=== PATIENT | female | born 1955 | race Caucasian/White ===

== ENCOUNTER 2021-12-21 11:45 | Observation (INO) | payer MEDICARE, SELFPAY ==
[2021-12-21] VITALS (9 sets, daily range): BP systolic 125–153; BP diastolic 61–106; PULSE 60–79; RESP 10–20; TEMP 35.9–38.9; O2SAT 97–100; BMI 30.9; BMI 28.5
--- NOTE | 2021-12-21 13:36 | RAD_ITS ---
STUDY: X-RAY CHEST REASON FOR EXAM: Female, 66 years old. Cough. Fever and body chills History of UTI. TECHNIQUE: PA and lateral views of the chest. COMPARISON: None. FINDINGS: Hyperinflation. Mild increased linear markings at the lung bases slightly more prominent at the right lung base. This may represent a combination of the scarring and possible atelectasis. There is no demonstrated pleural abnormality. Sternal cerclage wires and vascular clips are present from a prior sternotomy and coronary artery bypass graft procedure (CABG). Normal mediastinum and saravanan. Normal visualized pulmonary arteries. There is atherosclerotic calcification of the aortic arch with tortuosity. There are diffuse degenerative changes of the visualized thoracic spine. Normal visualized ribs, clavicles, and shoulders. There is no demonstrated abnormality of the visualized soft tissue structures of the upper abdomen. RAD/Chest PA and Lateral IMPRESSION: Mild degree of increased markings at the lung bases slightly more prominent on the right side suggestive of mild linear atelectasis superimposed on scarring. Electronically Signed: Leoncio Gorman MD at 14:44 EST ,
[2021-12-21] MEDS: Ondansetron 4 MG/2 ML Vial IV (14:13)
[2021-12-21] MEDS: 0.9% Normal Saline 1,000 ML 1000 ML IV (14:13)
[2021-12-21] MEDS: Acetaminophen 325 MG Tablet 650 MG PO ×2 (14:13→21:01)
[2021-12-21 14:14] LABS: Absolute Lymphocyte Count 1.08 X10^3/uL (0.83-4.51); Absolute Neutrophil Count 1.5 X10^3/uL (2.0-7.7); Basophil# 0.03 X10^3/uL; Eosinophil# 0.01 X10^3/uL; Eosinophils% 0.3 % (0-5); Hematocrit 41.3 % (37-47); Hemoglobin 13.6 g/dL (12.0-15.0); Lymphocyte # 1.08 X10^3/ul (0.83-4.51); Mean Corp Hgb Conc 32.9 g/dL (32-36); Mean Corpuscular Hgb 31.3 pg (27.0-32.0); Mean Corpuscular Volume 94.9 fL (81-99); Mean Platelet Vol. 9.6 fl (6.2-12.0); Monocyte# 0.36 X10^3/uL; NRBC Flagged by Analyzer 0 % (0-5); Platelet Count 386 K/mm3 (150-450); RBC Distribution Width CV 13.9 % (11.6-14.6); RBC Distribution Width SD 48.7 fl (35.1-43.9); Red Blood Count 4.35 M/mm3 (4.2-5.4)
--- NOTE | 2021-12-21 14:16 | EDS_ITS ---
HPI History of Present Illness Chief Complaint: Complaint Informant: patient Narrative Narrative: Patient is a 66-year-old female with history of hypertension hyperlipidemia as well as recent urinary tract infection. She is presenting with flulike symptoms. Patient recently completed a course of antibiotics for UTI. She believes it was Bactrim. Initially she was on another antibiotic that she describes as a yellow and fernandez capsule but she states she could not tolerate it. Her urinary symptoms cleared up over the weekend however yesterday and into today patient developed flulike symptoms. Patient has had associated vomiting, fever up to 100.1, body aches, decreased energy and feels unstable. Has had no further urinary symptoms. No URI symptoms. Did have Tylenol around 8 AM this morning. No rash reported. Patient states that she feels that she is going to have diarrhea. No sick contacts. Her reports that this is how she felt when she had COVID. PFSH PFS Home Medications lisinopril 2.5 mg tablet 2.5 mg PO QDAY #30 tabs 05/19/17 [Rx Last Taken Unknown] pravastatin 40 mg tablet 80 mg PO QDAY #60 tabs 06/13/17 [Rx Last Taken Unknown] Allergy/AdvReac Type Severity Reaction Status Date / Time No Known Allergies Allergy Verified 12/21/21 11:47 Social History Smoking Status: Never smoker ROS ROS ED Constitutional Constitutional ED: Reports chills and fever(s) Eyes Eyes: Denies change in vision ENT ENT ED: Denies ear pain, rhinorrhea or sore throat Cardiovascular Cardiovascular: Denies chest pain or palpitations Respiratory/Chest Respiratory/Chest: Denies cough or dyspnea Gastrointestinal Gastrointestinal: Reports nausea and vomiting; Denies abdominal pain, constipation or diarrhea Genitourinary Genitourinary ED: Denies dysuria, hematuria or urinary frequency Musculoskeletal Musculoskeletal: Reports myalgias; Denies arthralgias or neck pain Integumentary Denies rash Neurologic Neurologic: Reports headache(s); Denies paresthesias or weakness Psychiatric Psychiatric: Denies anxiety Hematologic/Lymphatic Hematologic/Lymphatic: Denies easy bleeding or easy bruising EXAM Physical Exam Const Vital Signs: 12/21/21 11:45 12/21/21 15:37 12/21/21 15:41 Temperature 97.6 F L 98.2 F Temperature Source Temporal Temporal Pulse Rate 79 64 64 Respiratory Rate 14 10 L 10 L Blood Pressure 133/86 H 125/85 H 125/85 H Blood Pressure Mean 101 98 98 Pulse Ox 97 98 98 Oxygen Delivery Method Room Air Room Air Room Air Positive well nourished and well developed General Appearance ED: well developed and NAD HEENT Reports TM's clear and moist mucous membranes Negative for trauma or tenderness Tympanic Membrane ED: Yes TM's clear Eyes PERRL and EOMs intact bilaterally Neck supple and no JVD Neck Narrative: No meningeal signs Chest Wall inspection of chest normal and palpation of chest normal Resp normal respiratory effort and clear to auscultation bilaterally Cardio regular rate, regular rhythm and no murmurs GI normal to inspection, nondistended, normoactive bowel sounds and non-tender Back/Spine no CVA tenderness Neuro oriented x3 and no sensory deficits noted Sensorium / Orientation: alert Motor Exam: strength 5/5 throughout and general weakness Psych mental status grossly normal Skin no rashes or lesions noted and no wounds MDM MDM MDM Narrative Medical decision making narrative: Patient evaluated for generalized malaise and weakness. She is hemodynamically stable but looks like she does not feel well. She is on Bactrim for UTI and felt that her urinary symptoms were improving until she just started to feel malaise and worse over the past day. She has nausea and vomiting. CBC shows a mild leukopenia and BMP shows a mild bump in her creatinine to 1.17. Her lactate is elevated 2.3. Urinalysis shows 150 ketones as well as 25-50 white blood cells with 1+ bacteria. There is some slight contamination but we will send for culture. Patient is given a dose of IV Rocephin. On repeat evaluation after IV fluids, Zofran and Tylenol she does not feel any better. I spoke with the patient's PCP who states the patient's culture on 12/03 was E. coli greater than 100,000 CFU's and pansensitive. Confirm that patient has been on Bactrim. Lab Data Attestation: I reviewed the patient's lab results. Labs: Laboratory Results - last 24 hr 12/21/21 12/21/21 12/21/21 14:03 14:03 14:03 WBC 3.0 L RBC 4.35 Hgb 13.6 Hct 41.3 MCV 94.9 MCH 31.3 MCHC 32.9 RDW Std Deviation 48.7 H RDW Coeff of Donavon 13.9 Plt Count 386 MPV 9.6 Immature Gran % (Auto) 0.700 Neut % (Auto) 50.0 Lymph % (Auto) 36.0 [place] % (Auto) 12.0 H Eos % (Auto) 0.3 Baso % (Auto) 1.0 Absolute Neuts (auto) 1.5 L Absolute Lymphs (auto) 1.08 Nucleated RBC % 0 Sodium 135 L Potassium 3.7 Chloride 101 Carbon Dioxide 25.0 Anion Gap 9 BUN 14 Creatinine 1.17 H Estim Creat Clear Calc 39.74 Est GFR (MDRD) Af Amer 59 L Est GFR (MDRD) Non-Af 49 L BUN/Creatinine Ratio 12.0 Glucose 116 H Lactic Acid 2.3 H* Calcium 9.4 Total Bilirubin 0.30 AST 28 ALT 30 Alkaline Phosphatase 120 H Total Protein 8.1 Albumin 3.9 Globulin 4.2 Albumin/Globulin Ratio 0.9 Lipase 118 Urine Color Urine Clarity Urine pH Ur Specific [place] Urine Protein Urine Glucose (UA) Urine Ketones Urine Occult Blood Urine Nitrite Urine Bilirubin Urine Urobilinogen Ur Leukocyte Esterase Urine RBC Urine WBC Ur Squamous Epith Cells Urine Bacteria Urine Mucus 12/21/21 15:09 WBC RBC Hgb Hct MCV MCH MCHC RDW Std Deviation RDW Coeff of Donavon Plt Count MPV Immature Gran % (Auto) Neut % (Auto) Lymph % (Auto) [place] % (Auto) Eos % (Auto) Baso % (Auto) Absolute Neuts (auto) Absolute Lymphs (auto) Nucleated RBC % Sodium Potassium Chloride Carbon Dioxide Anion Gap BUN Creatinine Estim Creat Clear Calc Est GFR (MDRD) Af Amer Est GFR (MDRD) Non-Af BUN/Creatinine Ratio Glucose Lactic Acid Calcium Total Bilirubin AST ALT Alkaline Phosphatase Total Protein Albumin Globulin Albumin/Globulin Ratio Lipase Urine Color Yellow Urine Clarity Sl. Cloudy Urine pH 6.0 Ur Specific [place] 1.020 Urine Protein 30 H Urine Glucose (UA) Normal Urine Ketones 150 A* Urine Occult Blood 25 H Urine Nitrite Negative Urine Bilirubin 1 H Urine Urobilinogen Normal Ur Leukocyte Esterase 500 H Urine RBC 0-5 SEEN Urine WBC 25-50 SEEN Ur Squamous Epith Cells 5-10 SEEN Urine Bacteria 1+ Urine Mucus 0 SEEN Radiography Chest X-Ray - ED: 2 View, Read by ED Physician, Read by Radiologist and No Acute Disease Diagnostic Testing: Clinical Impression(s) from Imaging Studies Chest X-Ray 12/21/21 13:36 IMPRESSION: Mild degree of increased markings at the lung bases slightly more prominent on the right side suggestive of mild linear atelectasis superimposed on scarring. Electronically Signed: Leoncio Gorman MD at 14:44 EST , Discharge Plan Triage Chief Complaint: Complaint ED Provider: Chelo De Dx/Rx/DC Orders Clinical Impression: Acute UTI, Acute dehydration, Failure of outpatient treatment Prescriptions: No Action lisinopril 2.5 mg tablet 2.5 mg PO QDAY Qty: 30 11RF pravastatin 40 mg tablet 80 mg PO QDAY Qty: 60 12RF Primary Care Provider: Mable Ford Referrals: Mable Ford DO [Primary Care Provider] - Disposition Disposition: Acute Care Hospital [facility] [place] [facility]
[2021-12-21 14:33] LABS: ALB/GLOB Ratio 0.9 RATIO (0.9-2.4); AST(SGOT) 28 U/L (15-37); Alanine Aminotransfer ALT/SGPT 30 U/L (13-56); Albumin, Serum 3.9 g/dL (3.2-5.0); Alkaline Phosphatase 120 U/L (45-117); Anion Gap 9 (5-15); BUN 14 mg/dL (7-18); Calcium,Total 9.4 mg/dL (8.5-10.1); Chloride 101 mmol/L (98-107); Creatinine, Serum 1.17 mg/dL (0.55-1.02); EST Glomerular Filtration Rate 49 mL/min (>60); Est Glom Filt Rate - Afr Amer 59 mL/min (>60); Estimated Creatinine Clearance 39.74 ml/min; Globulin 4.2 g/dL (2.2-4.2); Glucose 116 mg/dL (74-106); Lipase 118 U/L (73-393); Potassium 3.7 mmol/L (3.5-5.1); Protein, Total 8.1 g/dL (6.4-8.2); Sodium Level 135 mmol/L (136-145)
[2021-12-21 14:50] LABS: Lactic Acid 2.3 mmol/L (0.4-1.9)
[2021-12-21 15:14] LABS: Mucous, Urine 0 SEEN /hpf (<or=2+)
[2021-12-21 15:20] LABS: Color, Urine Yellow (Yellow); Glucose, Dipstick Normal (Normal); Leukocyte Esterase-Dipstick 500 /ul (Negative); Nitrite-Dipstick Negative (Negative); Occult Blood-Urine 25 /ul (Negative); Protein-Dipstick 30 mg/dl (Negative); Urine Clarity Sl. Cloudy (Clear); Urine Urobilinogen Normal (Normal)
[2021-12-21 15:21] LABS: Urine Bilirubin Dipstick 1 mg/dL (Negative)
[2021-12-21 15:22] LABS: Ketone-Dipstick 150 mg/dl (Negative)
[2021-12-21 15:26] LABS: Bacteria 1+ /hpf (None Seen); Red Blood Cells-Urine 0-5 SEEN /hpf (0-5); Squamous Epithelial Cells - UA 5-10 SEEN /hpf (5-10); White Blood Cells 25-50 SEEN /hpf (0-5)
--- NOTE | 2021-12-21 15:42 | HP.PCM.HOS_ITS ---
HPI - General General Date of Admission: 12/21/21 Date of Service: 12/21/21 Chief Complaint: generalised weakness and malaise HPI Narrative MARLIN JARRELL, is a 66 F with past med history as outlined who presents via the ED with a complaint of generalized malaise which have been going on for several days. Patient was recently treated for UTI by her PCP. She says she initially took 1 antibiotic which she reacted to for the rash after taking it for 2 days. She does not member the name of the antibiotic. She discontinued her antibiotic and was prescribed another 1 which she took for 4 days out of 7 days. Again she does not member the name of the second antibiotic. She has not been feeling well since then and says she has felt lethargic and weak and also had rhinorrhea. She also had fever and chills. She denied any frequency or dysuria and denied any chest pain. She did admit to diarrhea but denied any nausea or vomiting. Review of systems otherwise negative. Vitals in the ED were blood pressure 125/85 with pulse rate of 64 and respiratory of 10. She was saturating at 98% on room air. CBC was unremarkable and BMP was significant for creatinine of 1.17 and lactic acid of 2.3. Urinalysis showed WBC of 25-50 with 1+ urine bacteria and urine leukocyte esterase of 500. Chest x-ray showed mild degree of increased markings more prominent on the right side suggestive of mild linear atelectasis. COVID test done was negative. She has been admitted to be managed for partially treated UTI. [facility] Home Medications buspirone 5 mg tablet 5 mg PO BID depression 12/21/21 [History Last Taken Unknown] lisinopril 2.5 mg tablet 2.5 mg PO QDAY hypertension 12/21/21 [History Last Taken Unknown] metformin 500 mg tablet 500 mg PO QHS diabetes 12/21/21 [History Last Taken Unknown] metoprolol tartrate 25 mg tablet 25 mg PO DAILY heart 12/21/21 [History Last Taken Unknown] pravastatin 40 mg tablet 80 mg PO QDAY cholesterol 12/21/21 [History Last Taken Unknown] Allergy/AdvReac Type Severity Reaction Status Date / Time No Known Allergies Allergy Verified 12/21/21 11:47 Social History Smoking Status: Never smoker ROS Constitutional Constitutional: Reports chills, fatigue, fever(s), malaise and weakness; Denies anorexia or change in weight Eyes Eyes: Denies change in vision ENT HEENT: Denies ear pain, headache(s) or sore throat Cardiovascular Cardiovascular: Denies chest pain, dyspnea on exertion, edema, lightheadedness, orthopnea, palpitations, rapid heart rate or syncope Respiratory/Chest Respiratory/Chest: Denies cough, dyspnea, productive cough, shortness of breath at rest or shortness of breath with exertion Gastrointestinal Gastrointestinal: Reports diarrhea; Denies abdominal pain, constipation, dyspepsia, nausea or vomiting Genitourinary Genitourinary: Denies dysuria Musculoskeletal Musculoskeletal: Denies arthralgias Neurologic Neurologic: Denies confusion, dizziness, focal weakness, headache(s), numbness, seizures or syncope Psychiatric Psychiatric: Denies anxiety Vital Signs Vital Signs Vital Signs: 12/21/21 11:45 12/21/21 15:37 12/21/21 15:41 Temperature 97.6 F L 98.2 F Temperature Source Temporal Temporal Pulse Rate 79 64 64 Respiratory Rate 14 10 L 10 L Blood Pressure 133/86 H 125/85 H 125/85 H Blood Pressure Mean 101 98 98 Pulse Ox 97 98 98 Oxygen Delivery Method Room Air Room Air Room Air Weight Weight: 180 lb Body Mass Index (BMI) 30.9 Physical Exam Const alert, oriented x3 and no apparent distress General Appearance: cooperative HEENT normocephalic, head/scalp atraumatic, hearing grossly normal bilaterally and moist oral mucous membranes Mouth: oral and palatal mucosa normal Eyes PERRL, EOMs intact bilaterally and conjunctivae normal Neck no lymphadenopathy and supple Resp normal respiratory effort, no retractions, no use of accessory muscles and clear to auscultation bilaterally Cardio regular rate, regular rhythm, S1 normal heart sound, S2 normal heart sound and no murmurs GI normal to inspection, nondistended, normoactive bowel sounds, soft to palpation, non-tender and non-distended Extremity normal to inspection, full ROM and no clubbing, cyanosis or edema Neuro oriented x3, CN's II-XII intact bilaterally, moves all extremities and no focal motor deficits Sensorium / Orientation: awake and alert Motor Exam: strength 5/5 throughout Results Lab / Micro Data Result Diagrams: 12/21/21 14:03 12/21/21 14:03 Labs: Laboratory Results - last 24 hr 12/21/21 14:03: WBC 3.0 L, RBC 4.35, Hgb 13.6, Hct 41.3, MCV 94.9, MCH 31.3, MCHC 32.9, RDW Std Deviation 48.7 H, RDW Coeff of Donavon 13.9, Plt Count 386, MPV 9.6, Immature Gran % (Auto) 0.700, Neut % (Auto) 50.0, Lymph % (Auto) 36.0, [place] % (Auto) 12.0 H, Eos % (Auto) 0.3, Baso % (Auto) 1.0, Absolute Neuts (auto) 1.5 L, Absolute Lymphs (auto) 1.08, Nucleated RBC % 0 12/21/21 14:03: Sodium 135 L, Potassium 3.7, Chloride 101, Carbon Dioxide 25.0, Anion Gap 9, BUN 14, Creatinine 1.17 H, Estim Creat Clear Calc 39.74, Est GFR (MDRD) Af Amer 59 L, Est GFR (MDRD) Non-Af 49 L, BUN/Creatinine Ratio 12.0, Glucose 116 H, Calcium 9.4, Total Bilirubin 0.30, AST 28, ALT 30, Alkaline Phosphatase 120 H, Total Protein 8.1, Albumin 3.9, Globulin 4.2, Albumin/Globu deysi Ratio 0.9, Lipase 118 12/21/21 14:03: Lactic Acid 2.3 H* 12/21/21 15:09: Urine Color Yellow, Urine Clarity Sl. Cloudy, Urine pH 6.0, Ur Specific [place] 1.020, Urine Protein 30 H, Urine Glucose (UA) Normal, Urine Ketones 150 A*, Urine Occult Blood 25 H, Urine Nitrite Negative, Urine Bilirubin 1 H, Urine Urobilinogen Normal, Ur Leukocyte Esterase 500 H, Urine RBC 0-5 SEEN, Urine WBC 25-50 SEEN, Ur Squamous Epith Cells 5-10 SEEN, Urine Bacteria 1+, Urine Mucus 0 SEEN Micro: Microbiology 12/21/21 14:18 Nasal Secretion SARS-CoV-2 & FLU Antigen (Rapid) - Final Radiology Impression Chest X-Ray 12/21/21 13:36 IMPRESSION: Mild degree of increased markings at the lung bases slightly more prominent on the right side suggestive of mild linear atelectasis superimposed on scarring. Electronically Signed: Leoncio Gorman MD at 14:44 EST , Assessment & Plan Assessment/Plan (1) Acute UTI: (2) Acute dehydration: (3) Failure of outpatient treatment: PLAN: Plan #Partially treated UTI * failed outpatient therapy as she didnt complete the antibiotic course * admit to med surg * hydrate gently with IVF * urine culture done on outpatient basis grew E coli which was pansensitive, as per information received from his PCP by the ED doctor. * Get urine cultures. * Start on IV ceftriaxone. * PT OT consult. * #Diarrhea * States she has been having diarrhea. Been hydrated with IV fluids. In light of her recently been on 2 different antibiotics we will check for C. difficile. * #Lactic acidosis: * Likely due to dehydration from diarrhea and decreased intake. * Lactic acid was 2.3. * Hydrate with fluids and trend. * #Type 2 diabetes mellitus: Metformin on hold due to lactic acidosis. Insulin sliding scale. Checks ACH S. #Hypertension: On metoprolol and lisinopril DVT prophylaxis; lovenox COde status: full code * Patient and her counseled extensively about different types of CODE STATUS including full code, DNR CCA and DNR CCA. Patient elects to be full code. * Total [id number] time 16 minutes. * Charges/Coding Visit Charges Inpatient E&M: 69631 Init Hosp L3
[2021-12-21] MEDS: Ceftriaxone 1 GM/50 ML BAG IV (16:06)
[2021-12-21] MEDS: 0.9% Normal Saline 1,000 ML 150 ML IV ×2 (16:08→21:02)
[2021-12-21 18:10] LABS: Reflex Lactate? Y
[2021-12-21 19:30] LABS: Lactic Acid 1.7 mmol/L (0.4-1.9)
[2021-12-21] MEDS: Pravastatin 80 MG Tablet PO (21:01)
[2021-12-21] MEDS: Lisinopril 2.5 MG Tablet PO (21:01)
[2021-12-21] MEDS: busPIRone 5 MG Tablet PO (21:11)
[2021-12-21] MEDS: MELATONIN 10 MG TABLET 5 MG PO (23:23)
[2021-12-21 23:46] LABS: Bedside Glucose 101 mg/dL (74-106)
[2021-12-22] VITALS (7 sets, daily range): BP systolic 116–156; BP diastolic 56–75; PULSE 58–90; RESP 18–20; TEMP 37–38.8; O2SAT 94–100
[2021-12-22] MEDS: Ondansetron 4 MG/2 ML Vial IV ×3 (00:36→20:38)
[2021-12-22] MEDS: 0.9% Normal Saline 1,000 ML 150 ML IV (04:04)
[2021-12-22 05:03] LABS: Absolute Neutrophil Count 1.8 X10^3/uL (2.0-7.7); Basophil# 0.02 X10^3/uL; Basophil% 0.6 % (0-1); Eosinophil# 0.02 X10^3/uL; Eosinophils% 0.6 % (0-5); Hematocrit 36.4 % (37-47); Hemoglobin 12.1 g/dL (12.0-15.0); Lymphocyte % 34.4 % (19-41); Mean Corp Hgb Conc 33.2 g/dL (32-36); Mean Corpuscular Hgb 31.8 pg (27.0-32.0); Mean Corpuscular Volume 95.8 fL (81-99); Mean Platelet Vol. 9.7 fl (6.2-12.0); Monocyte# 0.29 X10^3/uL; Monocyte% 9.1 % (0-10); NRBC Flagged by Analyzer 0 % (0-5); Neutrophil # 1.76 X10^3/uL (2.7-7.7); Platelet Count 360 K/mm3 (150-450); RBC Distribution Width CV 14.2 % (11.6-14.6); RBC Distribution Width SD 50.2 fl (35.1-43.9); White Blood Count 3.2 K/mm3 (4.4-11.0)
[2021-12-22 05:49] LABS: Anion Gap 9 (5-15); BUN 11 mg/dL (7-18); BUN/Creat Ratio 12.6 RATIO (10-20); Calcium,Total 7.9 mg/dL (8.5-10.1); Chloride 106 mmol/L (98-107); Creatinine, Serum 0.88 mg/dL (0.55-1.02); EST Glomerular Filtration Rate 68 mL/min (>60); Est Glom Filt Rate - Afr Amer 83 mL/min (>60); Estimated Creatinine Clearance 52.84 ml/min; Glucose 110 mg/dL (74-106); Potassium 3.4 mmol/L (3.5-5.1); Sodium Level 136 mmol/L (136-145)
[2021-12-22] MEDS: Acetaminophen 325 MG Tablet 650 MG PO ×3 (06:27→20:38)
[2021-12-22 07:25] LABS: Bedside Glucose 109 mg/dL (74-106)
[2021-12-22] MEDS: Ceftriaxone 1 GM/50 ML BAG IV (09:10)
[2021-12-22] MEDS: 0.9% Normal Saline 1,000 ML 1 ML IV (09:19)
[2021-12-22] MEDS: Glucerna Shake 120 ML LIQUID PO (09:20)
[2021-12-22] MEDS: busPIRone 5 MG Tablet PO ×2 (09:20→21:52)
[2021-12-22] MEDS: Potassium Chloride Oral Tablet 20 MEQ 40 MEQ PO (09:20)
[2021-12-22] MEDS: Enoxaparin 40 MG/0.4 ML Syringe SC (09:21)
[2021-12-22] MEDS: Metoprolol Tartrate 25 MG Tablet PO (09:21)
--- NOTE | 2021-12-22 10:15 | CASEMGMT ---
RN CM Face to Face with patient for initial transition planning/care coordination assessment. RN CM introduced self and role at [facility]. Patient lying in bed, alert and oriented, daughter at bedside. Patient willing to participate in assessment and is able to answer all questions appropriately. Care providers, pharmacy, and demographics verified. Patient wishes to discharge home, denies need for home health at this time. Patient states she has no further needs or concerns at this time. CM to follow for discharge planning needs that may arise. PCP: Liliana Specialists: Franca ux information architect Preferred Pharmacy: [facility]; [facility] at discharge. Insurance: [employer] Prescription Benefit: yes Living Will/HPOA: none LNOK: , daughter Living Arrangements: Patient lives with in a single story home with 2 steps to enter. Patient states she was independent at home prior to hospitalization Transportation: self, DME/HHC: Patient denies DME in the home. No previous HHC or SNF Disposition Plan: Patient to discharge home with family support and follow-up plans in place. Debi BEAULIEU, RN, CM
[2021-12-22 11:56] LABS: Bedside Glucose 121 mg/dL (74-106)
--- NOTE | 2021-12-22 12:26 | PN.HOSP_ITS ---
Subjective Subjective Patient indicates that she is feeling approximately 40% better since admission however she still not feeling great. Appetite remains poor however she feels like she is able to drink more. Denies any specific pain or needs at this time. No issues overnight. Patient does indicate her mobility is improving as she has been able to get up to go to the bathroom independently without help. Objective Data Objective Data Vital Signs: Vital Signs Temp Pulse Resp BP Pulse Ox O2 Del Method 98.6 F 61 18 128/68 H 95 Room Air 12/22/21 09:16 12/22/21 09:21 12/22/21 09:16 12/22/21 09:16 12/22/21 09:16 12/22/21 09:16 Oxygen Delivery Method Room Air Weight: 75.5 kg Body Mass Index (BMI) 28.5 Intake & Output: Intake and Output for Last 24 Hours 12/20/21 12/21/21 12/22/21 23:59 23:59 23:59 Intake Total 1785 / 1785 1812.55 / 1812.55 Output Total 500 / 500 Balance 1785 / 1785 1312.55 / 1312.55 Lab / Micro Data Result Diagrams: 12/22/21 04:13 12/22/21 04:13 Labs: Laboratory Results - last 24 hr 12/21/21 14:03: WBC 3.0 L, RBC 4.35, Hgb 13.6, Hct 41.3, MCV 94.9, MCH 31.3, MCHC 32.9, RDW Std Deviation 48.7 H, RDW Coeff of Donavon 13.9, Plt Count 386, MPV 9.6, Immature Gran % (Auto) 0.700, Neut % (Auto) 50.0, Lymph % (Auto) 36.0, [place] % (Auto) 12.0 H, Eos % (Auto) 0.3, Baso % (Auto) 1.0, Absolute Neuts (auto) 1.5 L, Absolute Lymphs (auto) 1.08, Nucleated RBC % 0 12/21/21 14:03: Sodium 135 L, Potassium 3.7, Chloride 101, Carbon Dioxide 25.0, Anion Gap 9, BUN 14, Creatinine 1.17 H, Estim Creat Clear Calc 39.74, Est GFR (MDRD) Af Amer 59 L, Est GFR (MDRD) Non-Af 49 L, BUN/Creatinine Ratio 12.0, Glucose 116 H, Calcium 9.4, Total Bilirubin 0.30, AST 28, ALT 30, Alkaline Phosphatase 120 H, Total Protein 8.1, Albumin 3.9, Globulin 4.2, Albumin/Globulin Ratio 0.9, Lipase 118 12/21/21 14:03: Lactic Acid 2.3 H* 12/21/21 15:09: Urine Color Yellow, Urine Clarity Sl. Cloudy, Urine pH 6.0, Ur S pecific [place] 1.020, Urine Protein 30 H, Urine Glucose (UA) Normal, Urine Ketones 150 A*, Urine Occult Blood 25 H, Urine Nitrite Negative, Urine Bilirubin 1 H, Urine Urobilinogen Normal, Ur Leukocyte Esterase 500 H, Urine RBC 0-5 SEEN, Urine WBC 25-50 SEEN, Ur Squamous Epith Cells 5-10 SEEN, Urine Bacteria 1+, Urine Mucus 0 SEEN 12/21/21 18:53: Lactic Acid 1.7 12/21/21 20:59: POC Glucose 101 12/22/21 04:13: Sodium 136, Potassium 3.4 L, Chloride 106, Carbon Dioxide 21.0, Anion Gap 9, BUN 11, Creatinine 0.88, Estim Creat Clear Calc 52.84, Est GFR (MDRD) Af Amer 83, Est GFR (MDRD) Non-Af 68, BUN/Creatinine Ratio 12.6, Glucose 110 H, Calcium 7.9 L 12/22/21 04:13: WBC 3.2 L, RBC 3.80 L, Hgb 12.1, Hct 36.4 L, MCV 95.8, MCH 31.8, MCHC 33.2, RDW Std Deviation 50.2 H, RDW Coeff of Donavon 14.2, Plt Count 360, MPV 9.7, Immature Gran % (Auto) 0.300, Neut % (Auto) 55.0, Lymph % (Auto) 34.4, [place] % (Auto) 9.1, Eos % (Auto) 0.6, Baso % (Auto) 0.6, Absolute Neuts (auto) 1.8 L, Absolute Lymphs (auto) 1.10, Nucleated RBC % 0 12/22/21 06:30: POC Glucose 109 H 12/22/21 11:35: POC Glucose 121 H Micro: Microbiology 12/22/21 04:15 Stool C. difficile DNA Amplification - Final 12/21/21 20:05 Mucosa - Nasopharyngeal Respiratory Panel (PCR) - Final 12/21/21 14:18 Nasal Secretion SARS-CoV-2 & FLU Antigen (Rapid) - Final Radiography Diagnostic Testing: Radiology Impression Chest X-Ray 12/21/21 13:36 IMPRESSION: Mild degree of increased markings at the lung bases slightly more prominent on the right side suggestive of mild linear atelectasis superimposed on scarring. Electronically Signed: Leoncio Gorman MD at 14:44 EST , Physical Exam Const alert, oriented x3, no apparent distress and well nourished Constitutional Narrative: Upper middle-aged white female sitting up in bed watching television, appears ill but nontoxic HEENT head/scalp atraumatic and moist oral mucous membranes HEENT Narrative: Mallampati 3, no thrush Head and Scalp: normocephalic Resp normal respiratory effort, no retractions, no use of accessory muscles and clear to auscultation bilaterally Auscultation: Negative for crackles, rales, rhonchi or wheezes Cardio regular rate, regular rhythm, S1 normal heart sound, S2 normal heart sound, no murmurs, no rub, no gallops and no clicks GI normal to inspection, nondistended, normoactive bowel sounds and soft to palpation GI Narrative: Mild tenderness of bilateral flank Extremity no clubbing, cyanosis or edema Extremity Narrative: 2+ pedal pulses Neuro oriented x3, moves all extremities and no focal motor deficits Speech: speech normal Psych Psych Narrative: Affect is slightly flat but eye contact is good Assessment & Plan Assessment/Plan (1) Acute UTI: (2) Acute dehydration: (3) Failure of outpatient treatment: (4) Leukopenia: (5) Hypokalemia: PLAN: Plan Acute cystitis -UA shows leuk esterase white cells and bacteria -Patient has been on outpatient antibiotics and it was reported that it was a pansensitive E. coli -Repeat urine culture is pending -Continue ceftriaxone -May need abdominal imaging to rule out fistula with decreased ability to clear UTI despite appropriate antibiotics but will await defecation and sensitivities first to ensure that this is not a resistant pathogen Acute dehydration -Slight rise in serum creatinine from baseline on presentation--> 1.17 -Baseline appears to be 0.8-1 -Continue IV fluids but decrease rate from 150 to 75 cc/h -Repeat BMP in a.m. Hypokalemia -40 mill equivalents p.o. potassium -Repeat BMP in a.m. DM-2 -Hold home metformin -Sliding scale insulin -Accu-Cheks before meals and at bedtime CAD/HTN/HPL -Patient with previous CABG -SEN to LAD/SVG to RCA/SVG to lateral circumflex-05/2008 -Continue home lisinopril 2.5 mg daily -Continue home metoprolol 25 mg daily -Continue home pravastatin 80 mg daily History of migraine headaches -No current active issues DVT prophylaxis -Lovenox 40 mg subcu daily CODE STATUS -Full code Charges/Coding Visit Charges Inpatient E&M: 33932 Subs Hosp L2
[2021-12-22 17:01] LABS: Bedside Glucose 127 mg/dL (74-106)
[2021-12-22] MEDS: Pravastatin 80 MG Tablet PO (21:52)
[2021-12-22] MEDS: 0.9% Normal Saline 1,000 ML 75 ML IV (21:57)
[2021-12-22 22:16] LABS: Bedside Glucose 130 mg/dL (74-106)
[2021-12-23 03:33] VITALS: BP 167/69; PULSE 58; RESP 18; TEMP 36.4; O2SAT 95
[2021-12-23] MEDS: Acetaminophen 325 MG Tablet 650 MG PO ×2 (06:41→13:47)
[2021-12-23 06:55] LABS: Absolute Lymphocyte Count 1.67 X10^3/uL (0.83-4.51); Absolute Neutrophil Count 0.9 X10^3/uL (2.0-7.7); Basophil# 0.02 X10^3/uL; Basophil% 0.7 % (0-1); Eosinophil# 0.07 X10^3/uL; Eosinophils% 2.4 % (0-5); Hematocrit 34.3 % (37-47); Hemoglobin 11.4 g/dL (12.0-15.0); Lymphocyte # 1.67 X10^3/ul (0.83-4.51); Lymphocyte % 56.8 % (19-41); Mean Corp Hgb Conc 33.2 g/dL (32-36); Mean Corpuscular Hgb 32.1 pg (27.0-32.0); Mean Corpuscular Volume 96.6 fL (81-99); Mean Platelet Vol. 9.9 fl (6.2-12.0); Monocyte# 0.26 X10^3/uL; Monocyte% 8.8 % (0-10); NRBC Flagged by Analyzer 0 % (0-5); Neutrophil # 0.91 X10^3/uL (2.7-7.7); POSITIVE DIFFERENTIAL YES; Platelet Count 361 K/mm3 (150-450); RBC Distribution Width CV 14.5 % (11.6-14.6); RBC Distribution Width SD 51.5 fl (35.1-43.9); Red Blood Count 3.55 M/mm3 (4.2-5.4); White Blood Count 2.9 K/mm3 (4.4-11.0)
[2021-12-23 06:56] LABS: Differential Indicated SCAN CRITERIA MET
[2021-12-23 06:56] LABS: Bedside Glucose 96 mg/dL (74-106)
--- NOTE | 2021-12-23 07:24 | NURSING ---
spoke with [employer] regarding enteric pathogen- states they are not ran on off shifts will start running around 1015 this am.
[2021-12-23 07:39] LABS: Anion Gap 7 (5-15); BUN 6 mg/dL (7-18); BUN/Creat Ratio 9.5 RATIO (10-20); Calcium,Total 8.6 mg/dL (8.5-10.1); Chloride 111 mmol/L (98-107); Creatinine, Serum 0.63 mg/dL (0.55-1.02); EST Glomerular Filtration Rate 100 mL/min (>60); Est Glom Filt Rate - Afr Amer 121 mL/min (>60); Glucose 93 mg/dL (74-106); Magnesium 2.2 mg/dL (1.6-2.6); Phosphorus 2.5 mg/dL (2.5-4.9); Potassium 3.7 mmol/L (3.5-5.1); Sodium Level 140 mmol/L (136-145); Thyroid Stim Hormone (TSH) 2.74 uIU/mL (0.358-3.74)
[2021-12-23 08:38] VITALS: BP 138/59; PULSE 58; RESP 16; TEMP 36.8; O2SAT 96
[2021-12-23 09:46] VITALS: BP 138/59; PULSE 60; RESP 16; TEMP 36.8; O2SAT 96
[2021-12-23] MEDS: Ceftriaxone 1 GM/50 ML BAG IV (09:47)
[2021-12-23] MEDS: Glucerna Shake 120 ML LIQUID PO (09:47)
[2021-12-23 09:48] VITALS: PULSE 60
[2021-12-23] MEDS: Enoxaparin 40 MG/0.4 ML Syringe SC (09:48)
[2021-12-23] MEDS: busPIRone 5 MG Tablet PO (09:48)
[2021-12-23] MEDS: Metoprolol Tartrate 25 MG Tablet PO (09:48)
[2021-12-23] MEDS: 0.9% Saline Lock 10 ML Syringe IV ×2 (09:48→11:19)
--- NOTE | 2021-12-23 11:23 | DS.PCM_ITS ---
Providers Date of Admission: 12/21/21 Date of Discharge: 12/23/21 Primary Care Physician: Dr. Mable Ford, DO Reason For Visit: UTI, DEBILITY Diagnosis Discharge Diagnosis (1) Acute UTI: Status: Acute Code(s): N39.0 - Urinary tract infection, site not specified (2) Acute dehydration: Status: Acute Code(s): E86.0 - Dehydration (3) Failure of outpatient treatment: Status: Acute Code(s): Z78.9 - Other specified health status (4) Leukopenia: Status: Acute Code(s): D72.819 - Decreased white blood cell count, unspecified (5) Hypokalemia: Status: Acute Code(s): E87.6 - Hypokalemia Plan e Medications at Discharge Home Medications buspirone 5 mg tablet 5 mg PO BID depression 12/21/21 lisinopril 2.5 mg tablet 2.5 mg PO QDAY hypertension 12/21/21 metformin 500 mg tablet 500 mg PO QHS diabetes 12/21/21 metoprolol tartrate 25 mg tablet 25 mg PO DAILY heart 12/21/21 pravastatin 40 mg tablet 80 mg PO QDAY cholesterol 12/21/21 loperamide 2 mg capsule (Imodium A-D) 2 mg PO Q6H PRN loose stool #30 caps 12/23/21 Hospital Course Operations None Procedures None Summary of Care Provided Minutes Spent on Discharge: 38 Hospital Course: Mrs. Sweeney is a 66-year-old white female who presented to the emergency department [facility] on 12/21/2021 complaining of generalized weakness and malaise. She reported on presentation that had been ongoing for several days. She was treated for a UTI by her primary care physician and was initially placed on an antibiotic from which she developed a rash and this was changed to another antibiotic that she took for 4 days out of 7 prescribed days. She reported that she had not been feeling well since starting that second antibiotic and that she had felt lethargic and weak and also had rhinorrhea. She complained of fever and chills but denied any frequency or dysuria as well as chest pain. She did complain of diarrhea but denied any nausea or vomiting on presentation. Vitals in the ED were blood pressure 125/85 with pulse rate of 64 and respiratory of 10.? She was saturating at 98% on room air.? CBC was unremarkable and BMP was significant for creatinine of 1.17 and lactic acid of 2.3.? Urinalysis showed WBC of 25-50 with 1+ urine bacteria and urine leukocyte esterase of 500.? Chest x-ray showed mild degree of increased markings more prominent on the right side suggestive of mild linear atelectasis.? COVID test done was negative. She was admitted the medical floor and placed on IV hydration as well as IV antibiotics. Repeat urine culture was obtained as her initial UA was suggestive of urinary tract infection however this culture resulted and showed polymicrobial contaminant. She had ongoing diarrhea for which a C. difficile and enteric panel were performed. Both were negative and she was started on as needed Imodium. I suspect this may be related to recent antibiotic use or other viral infection. Patient had no respiratory symptoms throughout her hospitalization here however there is significant viral illness going around the community that has caused diarrhea most pacifically RSV. She had ongoing lymphopenia which seems to be atypical for her and seem to have a lymphocytosis predominant differential which again is suggestive of no regular viral illness. Her eating and drinking had improved significantly and she felt much improved by the a.m. of 12/23/2021 and felt that she was well enough to go home. She was able ambulate independently around her room and use the bathroom independently. She was discharged home in stable condition on 12/23/2021. No further antibiotics were given and she was instructed to use as needed Imodium for her diarrhea. I recommend follow-up with her primary care physician within the next 2 weeks. If she has ongoing recurrent urinary tract infections that may be prudent to get a follow-up abdominal CT of the abdomen pelvis with oral contrast to rule out any signs of fistula between the rectum and bladder. Discharge diagnoses: Acute dehydration Diarrhea Acute cystitis ruled out with polymicrobial culture suggestive of contaminant Suspected systemic viral illness Hypokalemia-resolved DM-2 CAD Hypertension Hyperlipidemia History of migraine headaches Physical Exam Const alert, oriented x3, no apparent distress and well nourished Constitutional Narrative: Upper middle-aged white female sitting up in bed watching television, appears to be feeling much better today and nontoxic, nursing at bedside General Appearance: cooperative, comfortable, well kempt and well developed Orientation / Consciousness: awake Exam Limitations: no limitations Nutritional Appearance: overweight HEENT normocephalic, head/scalp atraumatic, hearing grossly normal bilaterally and moist oral mucous membranes HEENT Narrative: Mallampati 3, no thrush Eyes PERRL, EOMs intact bilaterally and conjunctivae normal Eyes Narrative: No scleral icterus Neck no lymphadenopathy and supple Neck Narrative: Trachea midline, no thyroid enlargement Resp normal respiratory effort, no retractions, no use of accessory muscles and clear to auscultation bilaterally Auscultation: Negative for crackles, rales, rhonchi or wheezes Cardio regular rate, regular rhythm, S1 normal heart sound, S2 normal heart sound, no murmurs, no rub, no gallops and no clicks GI normal to inspection, nondistended, normoactive bowel sounds, soft to palpation, non-tender and non-distended Extremity normal to inspection, full ROM and no clubbing, cyanosis or edema Extremity Narrative: 2+ pedal pulses Skin no rashes or lesions noted, no wounds, skin turgor normal and no jaundice Neuro oriented x3, CN's II-XII intact bilaterally, moves all extremities and no focal motor deficits Sensorium / Orientation: awake and alert Speech: speech normal Psych affect normal Psych Narrative: Patient is pleasant and appropriately interactive Weight / BMI Weight Weight: 75.5 kg Body Mass Index (BMI) 28.5 ABG / Lab / Microbiology Data Result Diagrams: 12/23/21 05:55 12/23/21 05:55 Laboratory: Laboratory Results - last 24 hr 12/22/21 11:35: POC Glucose 121 H 12/22/21 16:37: POC Glucose 127 H 12/22/21 21:51: POC Glucose 130 H 12/23/21 05:55: WBC 2.9 L, RBC 3.55 L, Hgb 11.4 L, Hct 34.3 L, MCV 96.6, MCH 32.1 H, MCHC 33.2, RDW Std Deviation 51.5 H, RDW Coeff of Donavon 14.5, Plt Count 361, MPV 9.9, Immature Gran % (Auto) 0.300, Neut % (Auto) 31.0 L, Lymph % (Auto) 56.8 H, [place] % (Auto) 8.8, Eos % (Auto) 2.4, Baso % (Auto) 0.7, Absolute Neuts (auto) 0.9 L, Absolute Lymphs (auto) 1.67, Nucleated RBC % 0 12/23/21 05:55: Sodium 140, Potassium 3.7, Chloride 111 H, Carbon Dioxide 22.0, Anion Gap 7, BUN 6 L, Creatinine 0.63, Estim Creat Clear Calc 46.50, Est GFR (MDRD) Af Amer 121, Est GFR (MDRD) Non-Af 100, BUN/Creatinine Ratio 9.5 L, Glucose 93, Calcium 8.6, Phosphorus 2.5, Magnesium 2.2, TSH 2.74 12/23/21 06:35: POC Glucose 96 Microbiology: Microbiology 12/22/21 Unknown Stool Enteric Bacteriology - Final 12/21/21 15:09 Urine, Clean Catch Urine Culture - Final Mixed Gram Pos & Gram Neg Org 12/22/21 04:15 Stool C. difficile DNA Amplification - Final 12/21/21 20:05 Mucosa - Nasopharyngeal Respiratory Panel (PCR) - Final 12/21/21 14:18 Nasal Secretion SARS-CoV-2 & FLU Antigen (Rapid) - Final D/C Instructions Discharge Diet: Low fat / Low cholesterol and 1800 Calorie Control Diet Discharge Activity: Return to Normal Activity Return to work on: 12/25/21 Meaningful Use Info Meaningful Use Diagnoses (Choose all that apply): None applicable Discharge Plan Admission Admit Date/Time: 12/21/21 15:45 Primary Reason for Your Visit: Generalized weakness/malaise Attending Provider: Merly Monson Primary Care Provider: Mable Ford Consulting Providers: Libby Chavez Discharge Orders/Prescriptions Prescriptions: New loperamide [Imodium A-D] 2 mg capsule 2 mg PO Q6H PRN (Reason: loose stool) Qty: 30 0RF Continued buspirone 5 mg tablet 5 mg PO BID metformin 500 mg tablet 500 mg PO QHS Label Comments: TAKE 1 TABLET BY MOUTH ONCE DAILY metoprolol tartrate 25 mg tablet 25 mg PO DAILY Label Comments: TAKE 1/2 (ONE-HALF) TABLET BY MOUTH TWICE DAILY pravastatin 40 mg tablet 80 mg PO QDAY lisinopril 2.5 mg tablet 2.5 mg PO QDAY Referrals / Follow Up: Mable Ford DO [Primary Care Provider] - Within 2 Weeks Disposition Disposition (needs filled in before D/C Order can be placed): Home, Self Care Charges/Coding Visit Charges Inpatient E&M: 69440 Disch Hosp
[2021-12-23 11:51] LABS: Bedside Glucose 100 mg/dL (74-106)
[2021-12-23] MEDS: Loperamide 2 MG Capsule PO (13:44)
[2021-12-23 13:51] VITALS: BP 150/71; PULSE 79; RESP 18; TEMP 36.5; O2SAT 99
--- NOTE | 2021-12-23 14:39 | PHA.DC.MR ---
Pharmacy Service has performed discharge medication reconciliation for this patient. The patient's discharge medication list was reviewed for discrepancies and discrepancies were resolved. 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 Home Medications buspirone 5 mg tablet 5 mg PO BID depression 12/21/21 lisinopril 2.5 mg tablet 2.5 mg PO QDAY hypertension 12/21/21 metformin 500 mg tablet 500 mg PO QHS diabetes 12/21/21 metoprolol tartrate 25 mg tablet 25 mg PO DAILY heart 12/21/21 pravastatin 40 mg tablet 80 mg PO QDAY cholesterol 12/21/21 loperamide 2 mg capsule (Imodium A-D) 2 mg PO Q6H PRN loose stool #30 caps 12/23/21
== END 2021-12-23 14:43 | disposition home or self-care (01) | DRG 641 ==
LOC: ED 16:05 → MS3 16:10
PROVIDERS: Admitting Provider Student in an Organized Health Care Education/Training Program; Emergency Provider Emergency Medicine; PCP Internal Medicine; Visit Provider Internal Medicine
DX: E86.0 Dehydration (principal); E11.9 Type 2 diabetes mellitus without complications; B34.9 Viral infection, unspecified; D72.810 Lymphocytopenia; E78.5 Hyperlipidemia, unspecified; E87.6 Hypokalemia; I10 Essential (primary) hypertension; R19.7 Diarrhea, unspecified; R11.2 Nausea with vomiting, unspecified; I25.10 Atherosclerotic heart disease of native coronary artery without angina pectoris; Z20.822 Contact with and (suspected) exposure to COVID-19; Z79.84 Long term (current) use of oral hypoglycemic drugs; Z79.899 Other long term (current) drug therapy; Z86.16 Personal history of COVID-19
CPT/HCPCS: 36415; 71046; 80048; 80053; 81001; 82962; 83605; 83690; 83735; 84100; 84443; 85025; 87040; 87086; 87088; 87428; 87493; 87506; 87633; 96361; 96365; 96366; 96372; 96375; 96376; 97802; 99218; 99285; J7030; A4216; G0378; J2405

== ENCOUNTER → 2022-01-19 | Outpatient (CLI) | payer MEDICARE, SELFPAY ==
--- NOTE | 2022-01-19 13:12 | BI_ITS ---
MAMMOGRAPHY - BILATERAL SCREENING REASON FOR EXAM: Female, 66 years old. Routine annual screening examination. PERTINENT HISTORY: Non-contributory. TECHNIQUE: Digital bilateral breast braden (3D mammographic acquisition) in the CC and MLO projections. 2-D mediolateral oblique (MLO) and craniocaudad (CC) views of both breasts were obtained. CAD: Full Field Digital Mammography with Computer Added Detection was performed. COMPARISON: Comparison is made with prior study dated 07/26/2014. FINDINGS: Breast Composition: The breasts are heterogeneously dense, which may obscure small masses. There are no dominant masses or suspicious calcifications. A tissue clip marker is seen within a tiny nodular density in the upper the lateral aspect of the left breast. Stable small benign-appearing lateral The lungs. No other significant abnormalities are identified. There has been no significant change since the prior study. BI/SCRN MAMM (CAD)W/BRADEN BILAT IMPRESSION: Stable bilateral screening mammogram. Yearly follow-up mammogram recommended. (A) ASSESSMENT CATEGORY: BIRADS Category 2: Benign. A letter regarding these results will be sent to the patient by the facility within 30 days. Approximately 10% of breast cancers are not detected by mammography. A normal mammogram should not delay biopsy of a clinically suspicious abnormality. [id number] Electronically Signed: Leoncio Gorman MD at 14:49 EST ,
--- NOTE | 2022-01-19 13:17 | BD_ITS ---
STUDY: DUAL ENERGY X-RAY ABSORPTIOMETRY / DXA REASON FOR EXAM: Female, 66 years old. [id number] TECHNIQUE: Bone Mineral Density (BMD) measurements of lumbar spine and bilateral hips were obtained. COMPARISON: None. FINDINGS: Lumbar Spine (L1-L4): g/cm2 (1.005) / T-score (-0.7) / Z-score (1.4) Findings are suggestive of normal bone density with a low fracture risk. Left Femur Total: g/cm2 (0.850) / T-score (-0.8) / Z-score (0.7) Left Femoral Neck: g/cm2 (0.719) / T-score (-1.2) / Z-score (0.5) Right Femur Total: g/cm2 (0.828) / T-score (-0.9) / Z-score (0.5) Right Femoral Neck: g/cm2 (0.724) / T-score (-1.1) / Z-score (0.6) BD/Dexa Bone Density Study IMPRESSION: The patient is considered osteopenic as outlined below according to World David Organization (WHO) criteria with a low fracture risk. Reference Information: The T-score is the number of standard deviations above or below the standard which is normal for young adults at their peak bone mineral density. The World Health Organization (WHO) interprets the T-scores as follows: Above -1 Normal bone density Between -1 and -2.5 Osteopenia Equal to / or below -2.5 Osteoporosis As a practical clinical guideline, osteopenia may be graded as follows: Mild -1 through -1.5 Moderate -1.6 through -2.0 Severe -2.1 through -2.4 The Z-score is the number of standard deviations above or below age-matched controls. A Z-score of less than -1.5 would be considered abnormal. References: 1. NIH Osteoporosis and Related Bone Diseases www osteo.org 2. International Society for Clinical Densitometry www iscd.org 3. National Osteoporosis Foundation www nof.org Electronically Signed: Leoncio Gorman MD at 14:14 EST ,
== END | disposition home or self-care (01) ==
LOC: OPBD 13:09
PROVIDERS: PCP Internal Medicine; Visit Provider Internal Medicine
DX: Z12.31 Encounter for screening mammogram for malignant neoplasm of breast (principal); Z78.0 Asymptomatic menopausal state
CPT/HCPCS: 77063; 77067; 77080

== ENCOUNTER → 2022-02-10 | Outpatient (CLI) | payer MEDICARE, SELFPAY ==
--- NOTE | 2022-02-10 13:02 | US_ITS ---
HISTORY: UTI. TECHNIQUE: Trotter scale and color doppler images were obtained of the kidneys. 55 images. COMPARISON: None. FINDINGS: RIGHT KIDNEY: 9.3 cm in length with a cortical thickness of 9 mm. Contour and echogenicity unremarkable. No hydronephrosis. No gross renal mass demonstrated. LEFT KIDNEY: 10.2 cm in length with a cortical thickness of 12 mm. Contour and echogenicity unremarkable. No hydronephrosis. No gross renal mass demonstrated. URINARY BLADDER: Unremarkable with a wall thickness of 4 mm. Bilateral ureteral jets visualized. US/Kidney and Bladder IMPRESSION: Unremarkable examination of the kidneys. Electronically Signed: Gianna Berry MD at 14:13 EST ,
== END | disposition home or self-care (01) ==
LOC: US 13:02
PROVIDERS: PCP Internal Medicine; Referring Provider Urology; Visit Provider Urology
DX: N39.0 Urinary tract infection, site not specified (principal)
CPT/HCPCS: 76770

== ENCOUNTER 2023-07-05 11:49 | Emergency (ER) | payer MEDICARE, SELFPAY ==
[2023-07-05 11:50] VITALS: BP 171/80; PULSE 51; RESP 18; TEMP 36.7; O2SAT 97; BMI 30.9
--- NOTE | 2023-07-05 12:17 | CT_ITS ---
STUDY: CT BRAIN WITHOUT CONTRAST REASON FOR EXAM: Female, 68 years old. Head injury due to syncopal episode. History of migraines. RADIATION DOSAGE (If Supplied By Facility): CTDIvol = ( 44.99 ) mGy, DLP = ( 796.11 ) mGycm TECHNIQUE: Transaxial CT imaging of the brain was performed without administration of intravenous contrast material. Individualized dose optimization techniques were used for this CT. COMPARISON: No relevant priors. FINDINGS: Normal soft tissue structures. Normal calvarium. There is mild cerebral atrophy with widening of the extra-axial spaces and ventricular dilatation. Normal white matter tracts of the cerebral hemispheres. Normal basal ganglia and thalami. Normal brainstem. Normal cerebellum. There is no intracranial hemorrhage. There are no findings of an acute ischemic infarction. Normal visualized paranasal sinuses. CT/Brain/Head without Contrast IMPRESSION: Chronic involutional changes of the brain. Electronically Signed: Leoncio Gorman MD at 14:12 EDT ,
--- NOTE | 2023-07-05 12:17 | EKG12_ITS ---
Test Reason : SYNCOPE Blood Pressure : / mmHG Vent. Rate : 048 BPM Atrial Rate : 048 BPM P-R Int : 200 ms QRS Dur : 084 ms QT Int : 500 ms P-R-T Axes : 044 003 064 degrees QTc Int : 446 ms Sinus bradycardia Otherwise normal ECG Confirmed by ELLEN LOPEZ, GERARDO ([id number]), web content editor CARISA CAMERON ([id number]) on 07/07/2023 6:24:46 AM Referred By: Confirmed By:JODY HUGHES MD
[2023-07-05 12:27] VITALS: BP 139/65; PULSE 48; RESP 16; O2SAT 95
[2023-07-05 12:28] LABS: Absolute Lymphocyte Count 2.77 X10^3/uL (0.83-4.51); Absolute Neutrophil Count 4.2 X10^3/uL (2.0-7.7); Basophil# 0.09 X10^3/uL; Basophil% 1.1 % (0-1); Eosinophil# 0.38 X10^3/uL; Eosinophils% 4.6 % (0-5); Hemoglobin 12.8 g/dL (12.0-15.0); Lymphocyte # 2.77 X10^3/ul (0.83-4.51); Lymphocyte % 33.9 % (19-41); Mean Corp Hgb Conc 32.8 g/dL (32-36); Mean Corpuscular Hgb 30.5 pg (27.0-32.0); Mean Corpuscular Volume 92.9 fL (81-99); Monocyte% 8.6 % (0-10); NRBC Flagged by Analyzer 0 % (0-5); Neutrophil # 4.21 X10^3/uL (2.7-7.7); Neutrophil % 51.4 % (47-70); Platelet Count 374 K/mm3 (150-450); RBC Distribution Width CV 14.3 % (11.6-14.6); RBC Distribution Width SD 48.7 fl (35.1-43.9); White Blood Count 8.2 K/mm3 (4.4-11.0)
--- NOTE | 2023-07-05 12:38 | RAD_ITS ---
STUDY: X-RAY CHEST REASON FOR EXAM: Female, 68 years old. Syncope TECHNIQUE: Single AP portable view of the chest. COMPARISON: Comparison is made with prior study dated December 21, 2021. FINDINGS: EKG electrodes are seen. Stable mild increased markings at the lung bases suggestive of linear atelectasis and/or scarring. There is blunting of the left costophrenic angle. Sternal cerclage wires and vascular clips are present from a prior sternotomy and coronary artery bypass graft procedure (CABG). Normal mediastinum and saravanan. Normal visualized pulmonary arteries. There is atherosclerotic calcification of the aortic arch with tortuosity. Normal visualized thoracic spine. Normal visualized ribs, clavicles, and shoulders. There is no demonstrated abnormality of the visualized soft tissue structures of the upper abdomen. RAD/Chest 1 View (Portable) IMPRESSION: Stable examination. No acute abnormality is seen. Electronically Signed: Leoncio Gorman MD at 13:05 EDT ,
[2023-07-05] MEDS: Ondansetron 4 MG/2 ML Vial IV (12:42)
[2023-07-05 12:44] LABS: Anion Gap 6 (5-15); BUN 10 mg/dL (7-18); BUN/Creat Ratio 11.5 RATIO (10-20); Calcium,Total 9.3 mg/dL (8.5-10.1); Chloride 109 mmol/L (98-107); Creatinine, Serum 0.87 mg/dL (0.55-1.02); EST Glomerular Filtration Rate 69 mL/min (>60); Est Glom Filt Rate - Afr Amer 83 mL/min (>60); Estimated Creatinine Clearance 62.18 ml/min; Glucose 105 mg/dL (74-106); Potassium 3.9 mmol/L (3.5-5.1); Sodium Level 139 mmol/L (136-145); Troponin-I HS (w/2H Reflex) 5 pg/mL (3.0-54.0)
--- NOTE | 2023-07-05 12:51 | NURSING ---
NO OLD EKGS
[2023-07-05 13:00] VITALS: BP 163/86; PULSE 51; RESP 16; O2SAT 98
[2023-07-05 14:00] VITALS: BP 148/78; PULSE 51; RESP 18; O2SAT 98
[2023-07-05 14:22] LABS: Reflex Troponin-HS? (from REC) Y
[2023-07-05 15:00] VITALS: BP 142/66; PULSE 54; RESP 16; O2SAT 98
[2023-07-05 15:06] LABS: Troponin-I HS 5 pg/mL (3.0-54.0)
--- NOTE | 2023-07-05 15:18 | EDS_ITS ---
HPI History of Present Illness Chief Complaint: Fall Informant: patient and spouse/S.O. Narrative Narrative: 68-year-old female presenting to the emergency room following a syncopal episode. Patient's had just been brought back to a room in the outpatient center for an endoscopy. States that she was standing when she suddenly had a syncopal episode. She fell to the ground striking her head and now notes headache and nausea. No bleeding. She states she has never passed out before. She has a history of coronary artery disease sees Dr. Nguyen. States it has been about 15 years since her open heart surgery. She has an appointment with her primary care physician Dr. Brooks on . She notes that her heart rate is normally slow in the 50s. She takes metoprolol 25 mg once a day. She is not anticoagulated. She denies any current arm or leg symptoms. COUNTS INCLUDE 234 BEDS AT THE [facility] PFS Medical History Diabetes Non-smoker Myocardial infarct Hypertension Migraines Home Medications ?Medication ?Instructions ?Recorded ?Last Taken ?Type buspirone 5 mg tablet 5 mg PO BID depression 12/21/21 12/19/21 History lisinopril 2.5 mg tablet 2.5 mg PO QDAY hypertension 12/21/21 12/19/21 History metformin 500 mg tablet 500 mg PO QHS diabetes 12/21/21 12/19/21 History metoprolol tartrate 25 mg tablet 25 mg PO DAILY heart 12/21/21 12/19/21 History pravastatin 40 mg tablet 80 mg PO QDAY cholesterol 12/21/21 12/19/21 History loperamide 2 mg capsule (Imodium 2 mg PO Q6H PRN loose stool #30 12/23/21 Unknown Rx A-D) caps Allergy/AdvReac Type Severity Reaction Status Date / Time No Known Allergies Allergy Verified 07/05/23 11:50 Surgical History Hx of CABG Social History Smoking Status: Never smoker ROS ROS ED Constitutional Constitutional ED: Denies chills, fever(s) or weight loss Eyes Eyes: Denies change in vision or diplopia ENT ENT ED: Denies ear pain, rhinorrhea or sore throat Cardiovascular Cardiovascular: Denies chest pain, orthopnea, palpitations or racing heartbeat Respiratory/Chest Respiratory/Chest: Reports other Details: syncope ; Denies cough, dyspnea or orthopnea Gastrointestinal Gastrointestinal: Reports nausea; Denies abdominal pain, diarrhea or vomiting Genitourinary Genitourinary ED: Denies dysuria, hematuria or urinary frequency Musculoskeletal Musculoskeletal: Denies arthralgias, back pain or myalgias Integumentary Denies abscess or rash Neurologic Neurologic: Reports headache(s); Denies weakness Psychiatric Psychiatric: Denies anxiety, depression, suicidal ideation or suicidal thoughts Endocrine Endocrinology: Denies polydipsia, polyphagia or polyuria Allergic/Immunologic Allergic/Immunologic ED: Denies mouth swelling, tongue swelling or urticaria EXAM Physical Exam Const Vital Signs: 07/05/23 11:49 07/05/23 11:50 07/05/23 12:27 Temperature 98.1 F Temperature Source Oral Pulse Rate 51 L 48 L Respiratory Rate 18 16 Respiratory Depth Normal Respiratory Pattern Normal Blood Pressure 171/80 H 139/65 H Blood Pressure Mean 110 89 Pulse Ox 97 95 Oxygen Delivery Method Room Air Room Air Room Air 07/05/23 13:00 07/05/23 14:00 07/05/23 15:00 Temperature Temperature Source Pulse Rate 51 L 51 L 54 L Respiratory Rate 16 18 16 Respiratory Depth Respiratory Pattern Blood Pressure 163/86 H 148/78 H 142/66 H Blood Pressure Mean 111 101 91 Pulse Ox 98 98 98 Oxygen Delivery Method Room Air Room Air Room Air Positive well nourished and well developed General Appearance ED: well developed HEENT Reports normocephalic, head/scalp atraumatic and moist mucous membranes Eyes PERRL and EOMs intact bilaterally Neck no lymphadenopathy, supple and no JVD Resp normal respiratory effort and clear to auscultation bilaterally Cardio regular rate, regular rhythm and no murmurs GI normal to inspection, nondistended, normoactive bowel sounds and non-tender Palpation: soft Back/Spine no CVA tenderness and normal ROM Extremity normal to inspection General Extremety ED: Negative for edema General Extremity: Negative for edema Neuro oriented x3 and CN's II-XII intact bilaterally Sensorium / Orientation: alert Motor Exam: strength 5/5 throughout Psych mental status grossly normal Mood & Affect: Negative for depressed or tearful Skin no rashes or lesions noted and no wounds MDM MDM MDM Narrative Medical decision making narrative: Differential diagnosis includes but not limited to acute coronary syndrome, intracranial hemorrhage, aortic dissection, dysrhythmia orthostatic hypotension vasovagal syncope My independent or potation of the chest x-ray is no acute process. CT of the brain demonstrates no fracture or intracranial hemorrhage. Hemoglobin 12.8 with a white count of 8.2 and a platelet count of 374. BMP shows a normal anion gap BUN and creatinine. Glucose is 105. 2 sets of cardiac enzymes are normal. Patient received Zofran for nausea. She has been resting more comfortably. There is been no events on the monitor. This point patient has been relatively stable here in the emergency department. Not seeing dysrhythmia ACS normal mediastinal silhouette on chest x-ray and physical exam and history does not support dissection, clinical picture does not support pulmonary embolism. I believe we can discharge the patient safely home. Patient meets [place] syncope rules. She has primary care follow-up already arranged in 2 days. Patient is comfortable with this plan as is her . History & Record Review Discussion w/independent historian: Patient and Significant other Lab Data Attestation: I reviewed the patient's lab results. Labs: Laboratory Results - last 24 hr 07/05/23 07/05/23 12:00 14:35 WBC 8.2 RBC 4.20 Hgb 12.8 Hct 39.0 MCV 92.9 MCH 30.5 MCHC 32.8 RDW Std Deviation 48.7 H RDW Coeff of Donavon 14.3 Plt Count 374 MPV 10.0 Immature Gran % (Auto) 0.400 Neut % (Auto) 51.4 Lymph % (Auto) 33.9 [place] % (Auto) 8.6 Eos % (Auto) 4.6 Baso % (Auto) 1.1 H Absolute Neuts (auto) 4.2 Absolute Lymphs (auto) 2.77 Nucleated RBC % 0 Sodium 139 Potassium 3.9 Chloride 109 H Carbon Dioxide 24.0 Anion Gap 6 BUN 10 Creatinine 0.87 Estim Creat Clear Calc 62.18 Est GFR (MDRD) Af Amer 83 Est GFR (MDRD) Non-Af 69 BUN/Creatinine Ratio 11.5 Glucose 105 Calcium 9.3 Troponin I High Sens 5 5 Radiography Diagnostic Testing: Clinical Impression(s) from Imaging Studies Brain CT 07/05/23 12:17 IMPRESSION: Chronic involutional changes of the brain. Electronically Signed: Leoncio Gorman MD at 14:12 EDT , Chest X-Ray 07/05/23 12:38 IMPRESSION: Stable examination. No acute abnormality is seen. Electronically Signed: Leoncio Gorman MD at 13:05 EDT , EKG Initial EKG: Attestation: I personally reviewed and interpreted this EKG as follows: Comments: Sinus bradycardia ventricular rate 48 bpm Prior: Unchanged Discharge Plan Triage Chief Complaint: Fall ED Provider: Raheem Rocha Dx/Rx/DC Orders Clinical Impression: Syncope and collapse, Head injury, Nausea Instructions: ED Fainting, Uncertain Cause Prescriptions: No Action buspirone 5 mg tablet 5 mg PO BID metformin 500 mg tablet 500 mg PO QHS Patient Comments: TAKE 1 TABLET BY MOUTH ONCE DAILY metoprolol tartrate 25 mg tablet 25 mg PO DAILY Patient Comments: TAKE 1/2 (ONE-HALF) TABLET BY MOUTH TWICE DAILY pravastatin 40 mg tablet 80 mg PO QDAY lisinopril 2.5 mg tablet 2.5 mg PO QDAY loperamide [Imodium A-D] 2 mg capsule 2 mg PO Q6H PRN (Reason: loose stool) Qty: 30 0RF Primary Care Provider: Mable Ford Referrals: Mable Ford DO [Primary Care Provider] - Keep Mirna appointment Print Language: Afghan Disposition Disposition: Home, Self Care
[2023-07-05 15:21] VITALS: BP 111/81; PULSE 51; RESP 16; TEMP 36.6; O2SAT 98
== END 2023-07-05 15:28 | disposition home or self-care (01) ==
PROVIDERS: Emergency Provider Emergency Medicine; PCP Internal Medicine; Visit Provider Emergency Medicine
DX: R55 Syncope and collapse (principal); E11.9 Type 2 diabetes mellitus without complications; S09.90XA Unspecified injury of head, initial encounter; R11.0 Nausea; I25.2 Old myocardial infarction; I10 Essential (primary) hypertension; Z79.899 Other long term (current) drug therapy; W18.39XA Other fall on same level, initial encounter; Y92.530 Ambulatory surgery center as the place of occurrence of the external cause; Z79.84 Long term (current) use of oral hypoglycemic drugs; Z95.1 Presence of aortocoronary bypass graft
CPT/HCPCS: 70450; 71045; 80048; 84484; 85025; 93005; 96374; 99284; A4216; J2405

== ENCOUNTER 2023-08-26 10:30 | Outpatient (RCR) | payer MEDICARE, SELFPAY ==
--- NOTE | 2023-08-12 08:41 | HP.PTEVAL ---
Patient's Visit Information Visit Information Visit Information: MARLIN JARRELL is a 68 year old F referred to Physical Therapy by Honey Moreno, ADRIENNE with a diagnosis of BPPV. Date of Evaluation: 08/12/23 Physical Therapist: Chris Moreno, DPT, OCS, CSCS Visit Plan Frequency: 1-2x /Week Duration: 2-4 Weeks Plan: 1-2x/week for 2-4 weeks as needed for positional treatments, oculomotor testing and balance as needed. + L HD today and treated with krystal. Subjective Subjective: Dr. baker is family doctor. On July 04 was registering at hospital and passed out. Hit head on floor. Went to ER and scans came out fine. Not sure why she passed out. Now has had dizzyness since July 24 turning in bed things would spin and wake her up, lasting about three minutes and gone if stays still. Now has constant off feeling and gets intermittent hot flashes for a minute. Still gets spinning that might last a minute or so. Drinking and looking up may cause it also. Turning in store and bending can cause it. Sleeping is not great but not related. Has to stand a minute upon standing as she feels floating. Activities are effected in that some day doesn't feel like doing much, taking dramamnine which makes her tired but helps some days. Employed : none. Hobbies: yard work but not doing them as much now. No other falls Objective Objective: Walks into PT slowly but I, trasnfers chair and bed I, steps are reciprocal with one rail. cervical aROM WFL and without pain, UE AROM WFL and strength 4-/5 without myotomal problems. - R Hallpike ashu + L hallpike ashu for 8 sec up torsional nystagmus with dizzyness. Treated with modified L krystal today and insturct. Balance/Special Test Scores Functional Gait Assessment Score: 26 % Disability: 13.3400 Dizziness Score: 54 Goals Goal 1:: abolish dizzyness with turning and bending Goal Time Frame: 2-4 Weeks Goal 2:: Pt feel 100% back to normal Goal Time Frame: 2-4 Weeks Goal 3:: DHI score 10 or less Goal Time Frame: 2-4 Weeks Goal 4:: FGA 26 Goal Time Frame: 2-4 Weeks Rehabilitation Potential Physical Therapy Diagnosis: dizzyness limiting comfortable function Rehabilitation Potential: Good Anticipated Interventions Patient/Client Instruction: Educate patient on: Condition and Plan of Care For the Purpose of:: To increase tolerance to activity/condition/position Therapeutic Exercise to Include: Balance training Comment: vestibular treatments For the Purpose of:: To increase tolerance to activity/condition/position, To improve gait and locomotor functions and To improve balance Text: Thank you for the opportunity to evaluate your patient. For Medicare and Medicare HMO plans, please review the plan of care and approve it. It will need to be FAXED BACK to us at [phone] for Medicare purposes. For Medicare only, by signing this I certify the plan of care. Please let me know if there are questions or concerns regarding this plan of care. Physician Signature: Date:
--- NOTE | 2023-11-01 13:29 | HP.PT.NRP ---
Patient Information Patient Information: MARLIN JARRELL was seen in my office for initial evaluation on 08/12/23. The following Plan of Care was established for this patient: POC Established Initial Frequency: 1-2x /Week Initial Duration: 2-4 Weeks Anticipated Interventions Patient/Client Instruction: Educate patient on: Condition and Plan of Care For the Purpose of:: To increase tolerance to activity/condition/position Therapeutic Exercise to Include: Balance training For the Purpose of:: To increase tolerance to activity/condition/position, To improve gait and locomotor functions and To improve balance Last Seen Last Seen: This patient was last seen in our office 08/26/23. Pertinent comments regarding their Physical therapy will appear below: Pt seen 3 visits of positional treatments and was 100% better. She was to f/u 2 weeks later to ensure improvements but did not schedule or attend. I will discontinue from my care at this time as it has been over 2 months. At this point I will be discontinuing this patient from physical therapy. I would be happy to see this patient again in the future if found appropriate by the physician. Thank you! Chris Moreno, DPT, OCS, CSCS Balance/Gait/Functional tests Balance/Special Test Scores Functional Gait Assessment Score: 29 % Disability: 3.3400 Dizziness Score: 54
== END 2023-08-26 19:00 | disposition home or self-care (01) ==
LOC: PT 10:30
PROVIDERS: PCP Internal Medicine; Referring Provider Nurse Practitioner Family; Visit Provider Nurse Practitioner Family
DX: H81.10 Benign paroxysmal vertigo, unspecified ear (principal)
CPT/HCPCS: 97161; 97530

== ENCOUNTER → 2023-09-13 | Outpatient (CLI) | payer MEDICARE, SELFPAY ==
--- NOTE | 2023-09-13 14:16 | STRESSREP_ITS ---
Stress Test Report Pharmacologic myocardial perfusion stress test. [72-year-old lady with a history of chest pain.] Resting EKG demonstrates [sinus bradycardia] with a rate of [62] bpm. Resting blood pressure is [178/80] mmHg. 0.4 mg of regadenoson was infused per usual protocol followed by rapid intravenous saline flush injection. Continuous EKG monitoring was performed. The maximum heart rate was [76] bpm which was [52% ]of max impacted heart rate the maximum workload was 1 metabolic equivalent. At rest there were no ST or T wave changes noted to suggest ischemia and at peak infusion nonspecific ST changes were noted which did not meet the criteria for ischemia. No clinical angina is noted. The final blood pressure was [162/60 ]mmHg. Myocardial perfusion protocol. [11.2 ] mCi of technetium 99m sestamibi was injected at rest. 0.4 mg of regadenoson was infused per usual protocol. At peak infusion [32.1] mCi of technetium 99m sestamibi was injected stress images were obtained stress and rest images were reconstructed and compared in the short axis vertical long and horizontal long axis. Gated images were also obtained. Perfusion SPECT analysis: Review of the stress images demonstrate normal uptake of tracer noted in all areas of the myocardium. The resting images similar demonstrated normal uptake of tracer noted in all areas of the myocardium. No areas of reversibility are noted to suggest ischemia and no previous infarct is noted. Gated SPECT analysis: The gated ejection fraction is [87%]. Conclusion: [Normal] pharmacologic myocardial perfusion stress test. [Preserved] ejection fraction.
== END | disposition home or self-care (01) ==
LOC: CVS 06:44
PROVIDERS: PCP Internal Medicine; Referring Provider Internal Medicine; Visit Provider Internal Medicine
DX: R00.1 Bradycardia, unspecified (principal); I25.10 Atherosclerotic heart disease of native coronary artery without angina pectoris
CPT/HCPCS: 78452; 93017; 93225; 93226; A9500; A4216; J2785

== ENCOUNTER → 2023-10-31 | Outpatient (CLI) | payer MEDICARE, SELFPAY ==
--- NOTE | 2023-10-31 09:05 | ECHOD_ITS ---
Reason For Study: CAD/ASHD Procedure This was a 2D Doppler, Color Flow transthoracic echocardiogram. Exam performed in department. Left Ventricle Normal LV size. Left ventricular systolic function is normal. The left ventricular ejection fraction is 60 %. No regional wall motion abnormalities noted. Right Ventricle Normal RV size. Normal systolic function. Atria Normal left atrium. Normal right atrium. Mitral Valve Normal mitral valve. Tricuspid Valve Normal tricuspid valve. Mild tricuspid valve insufficiency. Aortic Valve Trisinus/trileaflet aortic valve. Mild focal aortic valve calcification. Pulmonic Valve Normal pulmonic valve. Great Vessels Normal aortic root. The pulmonary artery is normal size. Normal inferior vena cava. Pericardium/Pleural No pericardial effusion. MMode/2D Measurements & Calculations LVIDd: 4.4 cm IVSd: 0.97 cm LVOT diam: 2.0 cm LVIDs: 3.5 cm LVPWd: 1.0 cm LVOT area: 3.2 cm2 RVDd: 3.6 cm FS: 21.1 % Ao root diam: 3.2 cm LAV(MOD-bp): 45.1 ml Ao sinus diam: 2.9 cm LA dimension: 4.4 cm LAV(MOD-bp) Indexed: 24.8 ml/m2 LAV(MOD-sp2): 51.2 ml LAV(MOD-sp4): 39.[address] Junction: 2.3 cm LA A4 area: 15.4 cm2 RA A4 area: 12.7 cm2 Time Measurements MV dec time: 0.19 sec Doppler Measurements & Calculations MV E max ryan: 66.0 cm/sec Lat Peak E' Ryan: 10.4 cm/sec Med Peak E' Ryan: 6.7 cm/sec MV A max ryan: 53.2 cm/sec E/E' lat: 6.4 E/E' med: 9.8 MV E/A: 1.2 MV V2 max: 78.4 cm/sec MV P1/2t max ryan: 79.7 cm/sec Ao V2 max: 142.8 cm/sec MV max P.5 mmHg MV P1/2t: 78.2 msec Ao max P.2 mmHg MV V2 mean: 34.1 cm/sec MV dec slope: 298.5 cm/sec2 Ao V2 mean: 81.8 cm/sec MV mean P.60 mmHg Ao mean P.4 mmHg MV V2 VTI: 33.3 cm MVA(P1/2t): 2.8 cm2 Ao V2 VTI: 32.4 cm MVA(VTI): 3.0 cm2 AV (velocity ratio): 0.95 FAVIOLA(I,D): 3.1 cm2 FAVIOLA(V,D): 2.6 cm2 LV V1 max: 115.8 cm/sec MR max ryan: 508.5 cm/sec SV(LVOT): 100.3 ml LV V1 max P.4 mmHg MR max P.4 mmHg LV V1 mean P.7 mmHg LV V1 mean: 74.5 cm/sec LV V1 VTI: 30.9 cm PA V2 max: 88.5 cm/sec TR max ryan: 205.5 cm/sec PA max PG (full): 1.8 mmHg TR max P.9 mmHg PA V2 mean: 57.7 cm/sec PA mean PG (full): 0.79 mmHg ECHO/Echo Complete Interpretation Summary Normal LV size. Left ventricular systolic function is normal. The left ventricular ejection fraction is 60 %. Structurally normal valves. Ordering Physician: Garrett Schulte Referring Physician: Garrett Schulte Performed By: Yoel Albright RCS
== END | disposition home or self-care (01) ==
LOC: CVS 08:58
PROVIDERS: PCP Internal Medicine; Referring Provider Internal Medicine Cardiovascular Disease; Visit Provider Internal Medicine Cardiovascular Disease
DX: I25.10 Atherosclerotic heart disease of native coronary artery without angina pectoris (principal)
CPT/HCPCS: 93306

== ENCOUNTER → 2024-01-24 | Outpatient (CLI) | payer MEDICARE, SELFPAY ==
--- NOTE | 2024-01-24 09:54 | BI_ITS ---
MAMMOGRAPHY - BILATERAL SCREENING REASON FOR EXAM: Female, 68 years old. Routine annual screening examination. PERTINENT HISTORY: Non-contributory. Prior left ultrasound-guided breast biopsy. TECHNIQUE: Digital bilateral breast braden (3D mammographic acquisition) in the CC and MLO projections. 2-D mediolateral oblique (MLO) and craniocaudad (CC) views of both breasts were obtained. CAD: Full Field Digital Mammography with Computer Added Detection was performed. COMPARISON: Comparison is made with prior study January 19, 2022 and July 26, 2014. FINDINGS: Breast Composition: The breasts are heterogeneously dense, which may obscure small masses. There are no dominant masses or suspicious calcifications. A tissue clip marker is seen in the upper lateral aspect of the left breast from prior biopsy. This is seen adjacent to a 4.4 mm nodule. No other significant abnormalities are identified. There has been no significant change since the prior study. BI/SCRN MAMM (CAD)W/BRADEN BILAT IMPRESSION: Stable bilateral screening mammogram. Yearly follow-up mammogram recommended. (A) ASSESSMENT CATEGORY: BIRADS Category 2: Benign. A letter regarding these results will be sent to the patient by the facility within 30 days. Approximately 10% of breast cancers are not detected by mammography. A normal mammogram should not delay biopsy of a clinically suspicious abnormality. [id number] Electronically Signed: Leoncio Gorman MD at 11:44 EST ,
--- NOTE | 2024-01-24 09:55 | BD_ITS ---
STUDY: DUAL ENERGY X-RAY ABSORPTIOMETRY / DXA REASON FOR EXAM: Female, 68 years old. [id number] TECHNIQUE: Bone Mineral Density (BMD) measurements of lumbar spine and bilateral hips were obtained. COMPARISON: Comparison is made with prior study dated January 19, 2022. FINDINGS: Lumbar Spine (L1-L4): g/cm2 (1.038) / T-score (-0.4) / Z-score (1.8) Findings are suggestive of normal bone density with a low fracture risk. Left Femur Total: g/cm2 (0.813) / T-score (-1.1) / Z-score (0.5) Left Femoral Neck: g/cm2 (0.745) / T-score (-0.9) / Z-score (0.9) Right Femur Total: g/cm2 (0.785) / T-score (-1.3) / Z-score (0.3) Right Femoral Neck: g/cm2 (0.647) / T-score (-1.8) / Z-score (0.0) The T-Scores on the most recent prior examination were: Lumbar Spine (L1-L4): There has been improvement of bone density since the previous examination. Left Femur Total: which represents a worsening of 4.4%. Right Femur Total: which represents a worsening of 5.1%. BD/Dexa Bone Density Study IMPRESSION: The patient is considered osteopenic as outlined below according to World David Organization (WHO) criteria with a moderate fracture risk. There has been worsening of bone density since the previous examination. Reference Information: The T-score is the number of standard deviations above or below the standard which is normal for young adults at their peak bone mineral density. The World Health Organization (WHO) interprets the T-scores as follows: Above -1 Normal bone density Between -1 and -2.5 Osteopenia Equal to / or below -2.5 Osteoporosis As a practical clinical guideline, osteopenia may be graded as follows: Mild -1 through -1.5 Moderate -1.6 through -2.0 Severe -2.1 through -2.4 The Z-score is the number of standard deviations above or below age-matched controls. A Z-score of less than -1.5 would be considered abnormal. References: 1. NIH Osteoporosis and Related Bone Diseases www osteo.org 2. International Society for Clinical Densitometry www iscd.org 3. National Osteoporosis Foundation www nof.org Electronically Signed: Leoncio Gorman MD at 8:28 EST ,
== END | disposition home or self-care (01) ==
LOC: OPBD 09:53
PROVIDERS: PCP Internal Medicine; Referring Provider Internal Medicine; Visit Provider Internal Medicine
DX: Z12.31 Encounter for screening mammogram for malignant neoplasm of breast (principal); Z78.0 Asymptomatic menopausal state
CPT/HCPCS: 77063; 77067; 77080

== ENCOUNTER → 2024-10-19 | Outpatient (CLI) | payer MEDICARE, SELFPAY ==
--- OUTSIDE RECORDS SUMMARY | 2024-10-19 07:49 | XMS RPT_ITS | CCD ---
Author Organization [facility] Care Team Providers Care Boat [employer] Plant Utility Supervisor Name Role Phone Mable Ford Unavailable Letitia Lindo Unavailable [facility] Unavailable Zachery Brown Unavailable Munira Crespo Unavailable Unavailable Unavailable Unavailable Mable Ford Unavailable Letitia Lindo Unavailable [facility] Unavailable Zachery Brown Unavailable Gravius, Viviana Unavailable Unavailable Unavailable Unavailable Gravius, Viviana Unavailable Unavailable Nathan Escalante Unavailable Unavailable Nathan Moses Unavailable Unavailable Nohemi Whalen Unavailable Unavailable Monalisa, Inez Unavailable Unavailable Munira Crespo Unavailable Unavailable Mable Ford DO Unavailable Letitia Lindo Unavailable [facility] Unavailable Dr. Zachery Brown Unavailable Nohemi Whalen LPN Unavailable Unavailable Gravius BLOOD BANK LABORATORY PROFESSIONAL, Viviana Unavailable Unavailable Josué ALUMNI RELATIONS OFFICERNathan Unavailable Unavailable Unavailable Unavailable She Mccormack Unavailable Monalisa ALUMNI RELATIONS OFFICER, Inez Unavailable Unavailable Cayden Murry Unavailable Lotus Cain MA Unavailable Unavailable Mable Ford DO Unavailable Unique BLOOD BANK LABORATORY PROFESSIONAL, Kayela Unavailable Unavailable Slarb ALUMNI RELATIONS OFFICER, Marti Unavailable Unavailable [facility], [facility] Unavailable Dr. Garrett De La Fuente Attending Provider Honey Moreno CNP Unavailable Dr. Chelo De Emergency Provider Dr. Mable Ford Primary Care Provider Dr. Libby Chavez Admit Provider Dr. Libby Chavez Other Provider Dr. Merly Monson Attending Provider Dr. Merly Monson Other Provider Mable Ford DO Unavailable [facility], [facility] Unavailable Letitia Lindo Unavailable [facility] Unavailable Dr. Zachery Brown Unavailable She Mccormack Unavailable Cayden Murry Unavailable Scalf BLOOD BANK LABORATORY PROFESSIONAL, Kayela Unavailable Unavailable Josué ALUMNI RELATIONS OFFICER, Nathan Unavailable Unavailable Manchak BLOOD BANK LABORATORY PROFESSIONAL, Kait Unavailable Unavailable Cross ALUMNI RELATIONS OFFICER, Nohemi Unavailable Unavailable Gravius BLOOD BANK LABORATORY PROFESSIONAL, Viviana Unavailable Unavailable Slarb ALUMNI RELATIONS OFFICER, Marti Unavailable Unavailable Honey Moreno CNP Unavailable Unavailable Unavailable Mable Ford DO Attending Unavailable Moi LOPEZ, Diana Ge Referring Unavailable Mable Ford DO Consulting Unavailable [place] ALUMNI RELATIONS OFFICER, Marvin Unavailable Unavailable Jhonny ALUMNI RELATIONS OFFICER, BEBO Unavailable Unavailable Dr. Mable Ford DO Primary Care Provider Moiz LOPEZ, Dr. Serrato Attending Provider Dr. Mable Ford DO Referring Provider Jameel DELEON, Munira Attending Provider Mable Ford Primary Care Unavailable Franca, Garrett Attending Unavailable Mable Ford Attending Unavailable Mable Ford Referring Unavailable Mable Ford Primary Care Unavailable Mable Ford Primary Care Unavailable Franca, Garrett Attending Unavailable Franca, Pass Christian Referring Unavailable Mable Ford Referring Unavailable Munira Jorgensen NP Attending Unavailable Mable Ford Primary Care Unavailable Allergies Allergy Classification Reported Allergen(s) Allergy Type Date of Onset Reaction(s) Facility (4 sources) NITROFURANTOIN, MACROCRYSTALS / Nitrofurantoin, Monohydrate; Translations: [Macrobid [place]ANTI-INFECTIVE AGENTS - [facility] [place] Drug Allergy 2 Diarrhea, Rash [facility]; [facility] Work Phone: (1 source) Allergy to drug (finding) 2 Diarrhea, Rash [facility] Work Phone: (1 source) Allergy to drug (finding) 2 Diarrhea, Rash [facility]; [facility] Work Phone: (1 source) Allergy to drug (finding) 2 Diarrhea, Rash [facility]; [facility] Work Phone: (1 source) Allergy to drug (finding) 2 Diarrhea, Rash [facility]; [facility] Work Phone: (1 source) Allergy to drug (finding) 2 Diarrhea, Rash [facility]; [facility] Work Phone: (1 source) Allergy to drug (finding) 2 Diarrhea, Rash [facility]; [facility] Work Phone: (1 source) Allergy to drug (finding) 2 Diarrhea, Rash [facility]; [facility] Work Phone: (1 source) Allergy to drug (finding) 2 Diarrhea, Rash [facility]; [facility] Work Phone: (1 source) Allergy to drug (finding) 2 Diarrhea, Rash [facility]; [facility] Work Phone: (1 source) Allergy to drug (finding) 2 Diarrhea, Rash [facility]; [facility] Work Phone: (1 source) Allergy to drug (finding) 2 Diarrhea, Rash [facility]; [facility] Work Phone: (1 source) Allergy to drug (finding) 2 Diarrhea, Rash [facility]; [facility] Work Phone: (1 source) Allergy to drug (finding) 2 Diarrhea, Rash [facility]; [facility] Work Phone: (1 source) Allergy to drug (finding) 2 Diarrhea, Rash [facility]; [facility] Work Phone: (1 source) Allergy to drug (finding) 2 Diarrhea, Rash [facility]; [facility] Work Phone: (1 source) Lisinopril Drug Allergy 5 [facility] (1 source) Lisinopril Drug Allergy [address] [place] [address] Repository Medications Current Medications Medication Drug Class(es) Dates Sig (Normalized) Sig (Original) amLODIPine 2.5 mg oral tablet (3 sources) Dihydropyridine Calcium Channel Katherine Start: 10-12-2023 take 1 tablet by mouth once daily Amlodipine 2.5 mg tablet Active 2.5 mg PO daily 60 5 October 12, 2023 12:00am Start: 09-02-2023 End: 10-12-2023 take 1 tablet by mouth once daily Amlodipine 5 mg tablet Discontinued 5 mg PO DAILY September 02, 2023 12:00am October 12, 2023 11:26am Start: 12-08-2022 ascorbic acid 500 mg oral tablet (6 sources) Vitamin C Start: 09-02-2023 take 1 tablet by mouth once daily Ascorbic Acid (Vitamin C) 500 mg tablet Active 500 mg PO DAILY September 02, 2023 12:00am aspirin 81 mg delayed release oral tablet (20 sources) Platelet Aggregation Inhibitor, Nonsteroidal Anti-inflammatory Drug Start: 09-02-2023 take 1 tablet by mouth once daily Aspirin (Adult Aspirin Regimen) 81 mg tablet,delayed release (DR/EC) Active 81 mg PO DAILY September 02, 2023 12:00am Start: 09-09-2015 Start: 09-09-2015 Aspirin EC Lo- Dose 81 MG Oral Tablet Delayed Release [address] Daily for 90 days Refills: 0 Ordered: 09-Sep-2015 Jamal Nam MD Start : 09-Sep-2015 Active Calm Day (1 source) Start: 10-12-2023 Calm Day Activ e PO October 12, 2023 12:00am citalopram 40 mg oral tablet (20 sources) Serotonin Reuptake Inhibitor Start: 09-02-2023 take 1 tablet by mouth once daily Citalopram 40 mg tablet Active 40 mg PO DAILY September 02, 2023 12:00am Start: 08-02-2022 Start: 08-05-2021 Start: 12-29-2020 take 1 tablet by jim th once daily Citalopram Hydrobromide 40 MG Oral Tablet 1 Tablet daily for 0 days Quantity: 30 {Tablet} Refills: 6 Ordered: 29-Dec-2020 Mable Ford DO, DO, Kathleen Start : 29-Dec-2020 Active Start: 06-05-2020 take 1 tablet by jim th once daily Citalopram Hydrobromide 40 MG Oral Tablet 1 Tablet daily for 0 days Quantity: 30 {Tablet} Refills: 6 Ordered: 05-Jun-2020 Mable Ford DO, DO, Kathleen Start : 05-Jun-2020 Active Start: 11-09-2019 take 1 tablet by jim th once daily Citalopram Hydrobromide 40 MG Oral Tablet 1 Tablet daily for 0 days Quantity: 30 {Tablet} Refills: 6 Ordered: 09-Nov-2019 Mable Ford DO, DO, Kathleen Start : 09-Nov-2019 Active Start: 04-16-2019 take 1 tablet by jim th once daily Citalopram Hydrobromide 40 MG Oral Tablet 1 Tablet daily for 0 days Quantity: 30 {Tablet} Refills: 6 Ordered: 16-Apr-2019 Liliana DOMable DO, Kathleen Start : 16-Apr-2019 Active Start: 09-13-2018 take 1 tablet by jim th once daily Citalopram Hydrobromide 40 MG Oral Tablet 1 Tablet daily for 0 days Quantity: 30 {Tablet} Refills: 6 Ordered: 13-Sep-2018 Liliana DOMable DO, Kathleen Start : 13-Sep-2018 Active Start: 03-13-2018 take 1 tablet by jim th once daily Citalopram Hydrobromide 40 MG Oral Tablet 1 Tablet daily for 0 days Quantity: 30 {Tablet} Refills: 6 Ordered: 13-Mar-2018 Liliana DO, Mable Liliana FARIAS Mable Start : 13-Mar-2018 Active Start: 08-18-2017 take 1 tablet by jim th once daily Citalopram Hydrobromide 40 MG Oral Tablet 1 Tablet daily for 0 days Quantity: 30 {Tablet} Refills: 6 Ordered: 18-Aug-2017 Munira Crespo LPN Start : 18-Aug-2017 Active Cranberry (1 source) Non-Standardized Food Allergenic Extract, Non-Standardized Plant Allergenic Extract Start: 09-02-2023 take 1 capsule by mouth three times daily at mealtime Cranberry 500 mg capsule Active 500 mg PO THREE TIMES A DAY September 02, 2023 12:00am administer with meals doxepin hydrochloride 10 mg oral capsule (20 sources) Tricyclic Antidepressant Start: 10-12-2023 take 1 capsule by mouth once daily Doxepin 10 mg capsule Active 10 mg PO daily October 12, 2023 10:59am Start: 09-02-2023 End: 10-12-2023 take 1 capsule by mouth three times daily Doxepin 10 mg capsule Discontinued 10 mg PO THREE TIMES A DAY September 02, 2023 12:00am October 12, 2023 11:02am Doxepin HCl 10 M G Oral Capsule 1 q 8-12 hrs (10 MG) Active Lactobacillus Combination No.9 (Adult 50 Plus Probiotic) 4 billion cell capsule (1 source) Start: 10-12-2023 take 4 capsules by mouth once daily Lactobacillus Combination No.9 (Adult 50 Plus Probiotic) 4 billion cell capsule Active 4000 NMA PO daily October 12, 2023 12:00am administer with a meal loperamide hydrochloride 2 mg oral capsule (4 sources) Opioid Agonist Start: 12-23-2021 take 1 capsule by mouth every six hours as needed Loperamide (Imodium A-D) 2 mg capsule Active 2 mg PO EVERY 6 HOURS as needed for loose stool 30 December 23, 2021 1:00am melatonin 10 mg oral capsule (2 sources) Start: 09-02-2023 End: 10-12-2023 take 1 capsule by mouth at bedtime Melatonin 10 mg capsule Active 10 mg PO BEDTIME October 12, 2023 11:00am Sleep Time (1 source) Start: 10-12-2023 Sleep Time Act daniel PO October 12, 2023 12:00am Completed/Discontinued Medications Medication Drug Class(es) Dates Sig (Normalized) Sig (Original) amoxicillin 875 mg oral tablet (13 sources) Penicillin-class Antibacterial Start: 01-11-2022 End: 08-02-2022 amoxicillin 875 mg / clavulanate 125 mg oral tablet (20 sources) Penicillin-class Antibacterial Start: 01-09-2015 End: 02-03-2015 Start: 01-09-2015 End: 02-03-2015 take 1 tablet by mouth twice daily AUGMENTIN, 875-125MG (Oral Tablet) 1 (one) Tablet bid for 0 days Quantity: 20 {Tablet} Refills: 0 Ordered: 03-Feb-2015 BEBO Barry LPN Start : 09-Jan-2015 End : 03-Feb-2015 Inactive busPIRone hydrochloride 5 mg oral tablet (20 sources) Start: 08-05-2021 Start: 12-29-2020 take 1 tablet by jim th twice daily busPIRone HCl 5 MG Oral Tablet 1 (one) Tablet bid for 0 days Quantity: 60 {Tablet} Refills: 6 Ordered: 29-Dec-2020 Mable Ford DO, DO, Kathleen Start : 29-Dec-2020 Active Start: 06-05-2020 take 1 tablet by jim th twice daily busPIRone HCl 5 MG Oral Tablet 1 (one) Tablet bid for 0 days Quantity: 60 {Tablet} Refills: 6 Ordered: 05-Jun-2020 Mable Ford DO, DO, Kathleen Start : 05-Jun-2020 Active Start: 11-09-2019 take 1 tablet by jim th twice daily busPIRone HCl 5 MG Oral Tablet 1 (one) Tablet bid for 0 days Quantity: 60 {Tablet} Refills: 6 Ordered: 09-Nov-2019 Mable Ford DO, DO, Kathleen Start : 09-Nov-2019 Active Start: 04-18-2019 take 1 tablet by jim th twice daily busPIRone HCl 5 MG Oral Tablet 1 (one) Tablet bid for 0 days Quantity: 60 {Tablet} Refills: 6 Ordered: 18-Apr-2019 Liliana FARIAS Mable Liliana DO, Mable Start : 18-Apr-2019 Active Start: 09-13-2018 take 1 tablet by jim twice daily busPIRone HCl 5 MG Oral Tablet 1 (one) Tablet bid for 0 days Quantity: 60 {Tablet} Refills: 6 Ordered: 13-Sep-2018 Liliana FARIAS Mable Liliana DO, Mable Start : 13-Sep-2018 Active Start: 02-15-2018 take 1 tablet by [facility] twice daily BusPIRone HCl 5 MG Oral Tablet 1 (one) Tablet bid for 0 days Quantity: 60 {Tablet} Refills: 6 Ordered: 15-Feb-2018 Liliana FARIAS Mable Liliana DO, Mable Start : 15-Feb-2018 Active Start: 07-19-2017 take 1 tablet by jim twice daily BusPIRone HCl 5 MG Oral Tablet 1 (one) Tablet bid for 0 days Quantity: 60 {Tablet} Refills: 6 Ordered: 19-Jul-2017 LilianaMable tejeda DO, DO, Kathleen Start : 19-Jul-2017 Active chlorzoxazone 500 mg oral ta blet (20 sources) Muscle Relaxant Start: 06-19-2013 End: 08-18-2017 Comment on above: This order discontin ued per [facility]. colestipol hydrochloride 100 0 mg oral tablet (20 sources) Bile Acid Sequestrant Start: 06-19-2013 End: 06-19-2013 cranberry fruit (5 sources) desoximetasone 0.5 mg/ml top ical cream (20 sources) Corticosteroid Start: 06-19-2015 End: 07-25-2015 Start: 01-09-2015 End: 02-03-2015 Start: 01-09-2015 End: 02-03-2015 TOPICORT, 0.25% (External Cr eam) apply to affected are on foot Cream bid - use sparingly for 0 days Quantity: 15 {Gram} Refills: 0 Ordered: 03-Feb-2015 BEBO Barry LPN Start : 09-Jan-2015 End : 03-Feb-2015 Inactive diclofenac sodium 0.01 mg/mg topical gel (20 sources) Nonsteroidal Anti-inflammatory Drug Start: 08-05-2021 Start: 08-05-2021 Voltaren 1 % E xternal Gel 1 (one) Application qd prn hand pain for 0 days Quantity: 1 {Unspecified} Refills: 0 Ordered: 05-Aug-2021 Nathan Moses LPN Start : 05-Aug-2021 Active Comments: dispense one box Comment on above: dispense one box docosahexaenoic acid 120 mg / eicosapentaenoic acid 180 mg oral capsule (20 sources) Start: 09-09-19 16 End: 08-19-19 18 take 1 capsule by mouth once daily [place] 3 1000 MG Oral Capsule 1 Capsule daily for 0 days Quantity: 30 {Capsule} Refills: 0 Ordered: 18-Aug-2017 Munira Crespo RN Start : 09-Sep-2015 End : 18-Aug-2017 Inactive docusate sodium 100 mg oral capsule (20 sources) Start: 08-30-19 15 End: 04-22-19 17 escitalopram 10 mg oral tablet (20 sources) Serotonin Reuptake Inhibitor Start: 02-10-19 13 End: 02-10-19 13 ezetimibe 10 mg oral tablet (20 sources) Dietary Cholesterol Absorption Inhibitor Start: 09-09-19 16 End: 04-22-19 17 fluocinonide 1 mg/ml topical cream (20 sources) Corticosteroid Fluocinonide 0.1 % External Cream 1 bid (0.1 %) Inactive fluticasone propionate 0.05 mg/actuat metered dose nasal spray (20 sources) Corticosteroid Start: 04-16-2019 End: 11-19-2019 Start: 04-16-2019 End: 11-19-2019 take 2 puff(s) by inhalation once daily Flonase Allergy Relief 50 MCG/ACT Nasal Suspension 2 (two) Puff daily for 0 days Quantity: 1 {Inhalation} Refills: 0 Ordered: 19-Nov-2019 Nohemi Whalen LPN Start : 16-Apr-2019 End : 19-Nov-2019 Inactive lisinopril 2.5 mg oral table t (20 sources) Angiotensin Converting Enzyme Inhibitor Start: 08-05-2021 End: 09-02-2023 Start: 05-01-2020 take 1 tablet by jim th once daily Lisinopril 2.5 MG Oral Tablet 1 (one) Tablet daily for 0 days Quantity: 90 {Tablet} Refills: 5 Ordered: 01-May-2020 Mable Ford DO, DO, Kathleen Start : 01-May-2020 Active Start: 11-09-2019 take 1 tablet by jim th once daily Lisinopril 2.5 MG Oral Tablet 1 (one) Tablet daily for 0 days Quantity: 30 {Tablet} Refills: 5 Ordered: 09-Nov-2019 Liliana FARIAS Mable LilianaBenjamin tejeda DOeen Start : 09-Nov-2019 Active Start: 05-11-2019 take 1 tablet by jim th once daily Lisinopril 2.5 MG Oral Tablet 1 (one) Tablet daily for 0 days Quantity: 30 {Tablet} Refills: 5 Ordered: 11-May-2019 Liliana FARIAS Mable LilianaBenjamin tejeda DOeen Start : 11-May-2019 Active Start: 11-10-2018 take 1 tablet by jim th once daily Lisinopril 2.5 MG Oral Tablet 1 (one) Tablet daily for 0 days Quantity: 30 {Tablet} Refills: 5 Ordered: 10-Nov-2018 Liliana FARIASMable LilianaBenjamin tejeda DOeen Start : 10-Nov-2018 Active Start: 09-09-2015 End: 12-21-2021 take 1 tablet by mouth once daily Lisinopril 2.5 mg tablet Discontinued 2.5 mg PO daily 30 May 19, 2017 12:00am December 21, 2021 5:13pm LORazepam 1 mg oral tablet (20 sources) Benzodiazepine Start: 02-03-2018 End: 08-16-2018 Start: 11-18-2017 take 1 tablet by jim th once daily as needed LORazepam 1 MG Oral Tablet 1 (one) Tablet qd, prn for 0 days Quantity: 25 {Tablet} Refills: 0 Ordered: 18-Nov-2017 Liliana FARIAS Mablesailaja Ford DO Mable Start : 18-Nov-2017 Active Comments: twenty five Comment on above: twenty five twenty [id number] anx iety meclizine hydrochloride 25 mg oral tablet (20 sources) Antiemetic Start: 4 End: 4 take 1 tablet by mouth twice daily as needed Meclizine 25 mg tablet Discontinued 25 mg PO TWICE A DAY as needed September 02, 2023 12:00am October 12, 2023 11:00am Start: 04-16-2019 End: 11-19-2019 meloxicam 15 mg oral tablet (20 sources) Nonsteroidal Anti-inflammatory Drug Start: 06-05-2020 End: 01-08-2021 metFORMIN hydrochloride 500 mg oral tablet (20 sources) Biguanide Start: 04-27-2021 Start: 12-29-2020 take 1 tablet by jim th once daily metFORMIN HCl 500 MG Oral Tablet 1 (one) Tablet daily for 0 days Quantity: 30 {Tablet} Refills: 6 Ordered: 29-Dec-2020 Mable Ford DO, DO, Kathleen Start : 29-Dec-2020 Active Start: 06-05-2020 take 1 tablet by jim th once daily metFORMIN HCl 500 MG Oral Tablet 1 (one) Tablet daily for 0 days Quantity: 30 {Tablet} Refills: 6 Ordered: 05-Jun-2020 Mable Ford DO, DO, Kathleen Start : 05-Jun-2020 Active Start: 11-09-2019 take 1 tablet by jim th once daily metFORMIN HCl 500 MG Oral Tablet 1 (one) Tablet daily for 0 days Quantity: 30 {Tablet} Refills: 6 Ordered: 09-Nov-2019 Mable Ford DO, DO, Kathleen Start : 09-Nov-2019 Active Start: 04-16-2019 take 1 tablet by jim th once daily metFORMIN HCl 500 MG Oral Tablet 1 (one) Tablet daily for 0 days Quantity: 30 {Tablet} Refills: 6 Ordered: 16-Apr-2019 Mable Ford DO, DO, Kathleen Start : 16-Apr-2019 Active Start: 09-11-2018 take 1 tablet by jmi th once daily metFORMIN HCl 500 MG Oral Tablet 1 (one) Tablet daily for 0 days Quantity: 30 {Tablet} Refills: 6 Ordered: 11-Sep-2018 Mable Ford DO, DO, Kathleen Start : 11-Sep-2018 Active Start: 03-13-2018 take 1 tablet by jim th once daily MetFORMIN HCl 500 MG Oral Tablet 1 (one) Tablet daily for 0 days Quantity: 30 {Tablet} Refills: 6 Ordered: 13-Mar-2018 Mable Ford DO, DO, Kathleen Start : 13-Mar-2018 Active Start: 08-18-2017 take 1 tablet by jim th once daily MetFORMIN HCl 500 MG Oral Tablet 1 (one) Tablet daily for 0 days Quantity: 30 {Tablet} Refills: 6 Ordered: 18-Aug-2017 Munira Crespo LPN Start : 18-Aug-2017 Active Comment on above: updated script to do 90 day at a time MEDROL (DONNY), 4MG (Oral Tablet) (20 sources) Corticosteroid Start: 07-09-2011 End: 08-17-2011 Start: 07-09-2011 End: 08-17-2011 MEDROL (DONNY), 4MG (Oral Tabl et) 1 Tablet TAD for 0 days Quantity: 1 {Package(s)} Refills: 0 Ordered: 17-Aug-2011 BEBO Barry LPN Start : 09-Jul-2011 End : 17-Aug-2011 Inactive Comments: wean from 28mg to 4mg over 7 days Comment on above: wean from 28mg to 4m g over 7 days metoprolol tartrate 25 mg oral tablet (20 sources) beta-Adrenergic Katherine Start: 09-02-2023 End: 10-11-2024 Metoprolol Tartrate 25 mg tablet Discontinued 12.5 mg PO TWICE A DAY September 02, 2023 3:30pm October 11, 2024 11:26am heart Start: 08-05-2021 End: 09-02-2023 Start: 08-05-2021 take 0.5 tablet by m outh twice daily Metoprolol Tartrate 25 MG Oral Tablet 1/2 Tablet bid for 0 days Quantity: 90 {Tablet} Refills: 3 Ordered: 05-Aug-2021 Viviana Strickland CMA Start : 05-Aug-2021 Active Start: 06-17-2020 take 0.5 tablet by m outh twice daily Metoprolol Tartrate 25 MG Oral Tablet 1/2 Tablet bid for 0 days Quantity: 60 {Tablet} Refills: 6 Ordered: 17-Jun-2020 Mable Ford DO, DO, Kathleen Start : 17-Jun-2020 Active Start: 04-16-2019 take 0.5 tablet by m outh twice daily Metoprolol Tartrate 25 MG Oral Tablet 1/2 Tablet bid for 0 days Quantity: 60 {Tablet} Refills: 6 Ordered: 16-Apr-2019 Mable Ford DO, DO, Kathleen Start : 16-Apr-2019 Active Start: 09-13-2018 take 0.5 tablet by m outh twice daily Metoprolol Tartrate 25 MG Oral Tablet 1/2 Tablet bid for 0 days Quantity: 60 {Tablet} Refills: 6 Ordered: 13-Sep-2018 Mable Ford DO, DO, Kathleen Start : 13-Sep-2018 Active Start: 08-18-2017 take 0.5 tablet by m outh twice daily Metoprolol Tartrate 25 MG Oral Tablet 1/2 Tablet bid for 0 days Quantity: 60 {Tablet} Refills: 6 Ordered: 18-Aug-2017 Munira Crespo LPN Start : 18-Aug-2017 Active Start: 02-11-2012 End: 02-11-2012 nitrofurantoin, macrocrystals 25 mg / nitrofurantoin, monohydrate 75 mg oral capsule (20 sources) Nitrofuran Antibacterial Start: 12-03-2021 End: 01-07-2022 omega-3 acid ethyl esters (assisted) 1000 mg oral capsule (17 sources) Start: 09-09-2015 End: 08-18-2017 take 1 capsule by mouth once daily [place] 3 1000 MG Oral Capsule 1 Capsule daily for 0 days Quantity: 30 {Capsule} Refills: 0 Ordered: 18-Aug-2017 Munira Crespo RN Start : 09-Sep-2015 End : 18-Aug-2017 Inactive omega-3 fatty acids-fish oil (15 sources) Start: 09-09-2015 End: 08-18-2017 pravastatin sodium 40 mg oral tablet (20 sources) HMG-CoA Reductase Inhibitor Start: 02-24-2022 Start: 03-02-2021 take 2 tablets by mo uth once daily Pravastatin 40 mg tablet Active 80 mg PO daily December 21, 2021 5:13pm cholesterol Start: 03-02-2021 Start: 02-20-2020 take 2 tablets by mo uth once daily Pravastatin Sodium 40 MG Oral Tablet 2 (two) Tablet daily for 90 days Quantity: 180 {Tablet} Refills: 3 Ordered: 20-Feb-2020 Mable Ford DO, DO, Kathleen Start : 20-Feb-2020 Active Start: 05-11-2019 take 2 tablets by mo uth once daily Pravastatin Sodium 40 MG Oral Tablet 2 (two) Tablet daily for 0 days Quantity: 60 {Tablet} Refills: 3 Ordered: 11-May-2019 Mable Ford DO, DO, Kathleen Start : 11-May-2019 Active Start: 09-11-2018 take 2 tablets by [facility] once daily Pravastatin Sodium 40 MG Oral Tablet 2 (two) Tablet daily for 0 days Quantity: 60 {Tablet} Refills: 3 Ordered: 11-Sep-2018 Mable Ford DO, DO, Kathleen Start : 11-Sep-2018 Active Start: 06-13-2017 End: 12-21-2021 take 80 mg by mouth once daily Pravastatin Discontinue d 80 MG PO daily 60 June 13, 2017 4:52pm December 21, 2021 4:13pm Start: 06-13-2017 End: 06-13-2017 take 1 tablet by mouth once daily Pravastatin 40 mg tablet Discontinued 40 mg PO daily June 13, 2017 12:00am June 13, 2017 5:51pm Start: 09-09-2015 End: 12-21-2021 take 2 tablets by mouth once daily Pravastatin Sodium 40 MG Oral Tablet 2 (two) Tablet daily for 0 days Quantity: 60 {Tablet} Refills: 3 Ordered: 17-May-2018 Mable Ford DO, DO, Kathleen Start : 17-May-2018 Active predniSONE 20 mg oral tablet (20 sources) Start: 12-03-2022 Start: 01-09-2015 End: 01-12-2015 promethazine hydrochloride 2 5 mg oral tablet (20 sources) Phenothiazine Start: 11-26-2013 End: 02-03-2015 sertraline 50 mg oral tablet (20 sources) Serotonin Reuptake Inhibitor Start: 07-25-2013 End: 08-08-2013 Comment on above: take 1/2 daily for 1 week then increase to 1 tab daily for 1 week then increase to 2 tabs daily everyday. sulfamethoxazole 800 mg / trimethoprim 160 mg oral tablet (20 sources) Dihydrofolate Reductase Inhibitor Antibacterial, Sulfonamide Antimicrobial Start: 12-16-2021 End: 12-23-2021 Start: 12-16-2021 [facility] Sulfamethoxazole-Trimethoprim 800-160 MG Oral Tablet 1 (one) Tablet twice a day for 7 days Quantity: 14 {Tablet} Refills: 0 Ordered: 16-Dec-2021 Honey Moreno CNP Start : 16-Dec-2021 Active Start: 02-16-2016 End: 02-23-2016 Start: 02-16-2016 End: 02-23-2016 take 1 tablet by mouth twice daily Bactrim DS 800-160 MG Oral Tablet 1 (one ) Tablet bid for 7 days Quantity: 14 {Tablet} Refills: 0 Ordered: 16-Feb-2016 Elidia Hamlin Start : 16-Feb-2016 End : 23-Feb-2016 Inactive tiZANidine 2 mg oral tablet (20 sources) Central alpha-2 Adrenergic Agonist Start: 07-09-2011 End: 08-17-2011 triamcinolone acetonide 1 mg /ml topical cream (20 sources) Corticosteroid Start: 04-16-2019 End: 11-06-2021 Start: 04-16-2019 End: 11-06-2021 Triamcinolone Acetonide 0.1 % External Cream uad Cream Cream bid to affected area(s) prn for 0 days Quantity: 15 {Gram} Refills: 3 Ordered: 06-Nov-2021 Nathan Moses LPN Start : 16-Apr-2019 End : 06-Nov-2021 Inactive Start: 08-18-2017 Triamcinolone Acetonide 0.1 % External Cream uad Cream Cream bid to affected area(s) prn for 0 days Quantity: 15 {Gram} Refills: 3 Ordered: 18-Aug-2017 Mable Ford DO, DO, Kathleen Start : 18-Aug-2017 Active 24 hr venlafaxine 75 mg extended release oral capsule (20 sources) Serotonin and Norepinephrine Reuptake Inhibitor Start: 07-25-2015 End: 07-25-2015 Start: 06-20-2015 End: 06-27-2015 Comment on above: generic ok Problems Active Problems Problem Classification Problem Date Documented Da te Episodic/Chronic Acute myocardial infarction (1 source) Myocardial infarction; Translations: [Acute myocardial infarction, unspecified] 09-02-2023 Chronic Administrative/social admission (20 sources) Counseling procedure with explicit context; Translations: [Patient encounter status] Resolved: 01-07-2022 12-21-2017 Episodic Allergic reactions (20 sources) Psoriasiform dermatitis; 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 think picks t o ulcers. pt has overlying neurosis dermastitis. talk about getting fake nails thick acyrlic anso not able to pick. will use occlusive dressing. treat anxiety and steriod cream. then see where rash comes out at without picking and cosider biopsy neeed to see Dr. GARRETT Allergic reactions (20 sources) Contact dermatitis; Translations: [Psoriasiform dermatitis] Resolved: 02-03-2015 02-03-2015 Episodic Comment on above: R arm. think picks t o ulcers. pt has overlying neurosis dermastitis. talk about getting fake nails thick acyrlic anso not able to pick. will use occlusive dressing. treat anxiety and steriod cream. then see where rash comes out at without picking and cosider biopsy neeed to see Dr. GARRETT Anxiety disorders (20 sources) Anxiety; Translations: [Acute stress disorder] Resolved: 11-06-2021 12-21-2017 Chronic Comment on above: celexa 40 mg since 2 013 Lorazepamuse nightly for sleep celexa 40 mg since 2 013 Lorazepamuse nightly for sleep prn Cardiac dysrhythmias (1 source) Bradycardia; Translations: [Bradycardia, unspecified] 09-02-2023 Episodic Complications of surgical procedures or medical care (4 sources) Drug therapy finding; Translations: [Medication side effect] 12-03-2022 Episodic Conditions associated with dizziness or vertigo (20 sources) Dizziness; Translations: [Dizzy] Resolved: 06-04-2019 05-17-2018 Episodic Comment on above: i thkni mild veritig o -- vertigo pos ashu epperson pike on rt Coronary atherosclerosis and other heart disease (20 sources) Coronary arteriosclerosis; Translations: [Coronary artery disease] Onset: 11-23-2023 12-21-2017 Chronic Comment on above: had triple bypass in 2008, 4-[address] De La Fuente Diabetes mellitus without complication (20 sources) Type 2 diabetes mellitus; Translations: [Diabetes mellitus type II, controlled] 12-21-2017 Chronic Comment on above: hga1c good. had eye exam last year Diabetes mellitus without complication (20 sources) Diabetes mellitus without complication Diseases of mouth; excluding dental (20 sources) Perleche; Translations: [Angular cheilitis] 12-21-2017 Episodic Diseases of white blood cells (20 sources) Leukopenia; Translations: [Decreased white blood cell count, unspecified] Resolved: 01-25-2022 Chronic Disorders of lipid metabolism (20 sources) Hyperlipidemia, unspecified; Translations: [Hyperlipidemia] 12-21-2017 Chronic Comment on above: increase exercise E Codes: Fall (20 sources) Accidental fall ; Translations: [Fall, accidental] Resolved: 08-05-2021 04-09-2021 Episodic Essential hypertension (20 sources) Benign hypertension; Translations: [Hypertension, benign] 12-21-2017 Chronic Comment on above: controlled Fluid and electrolyte disorders (20 sources) Dehydration; Translations: [Dehydration] Resolved: 01-25-2022 Episodic Genitourinary symptoms and ill-defined conditions (20 sources) Blood in urine; Translations: [Hematuria] Resolved: 12-03-2022 12-21-2017 Episodic Headache, including migraine (20 sources) Headache; Translations: [Headache] Resolved: 06-19-2013 11-12-2014 Episodic Headache; including migraine (1 source) Migraine; Translations: [Migraine, unspecified, not intractable, without status migrainosus] 09-02-2023 Chronic Immunizations and screening for infectious disease (20 sources) Viral screening status; Translations: [Need for hepatitis C screening test] Resolved: 12-03-2022 08-05-2021 Episodic Nausea and vomiting (20 sources) Nausea; Translations: [Nausea] Resolved: 02-03-2015 02-03-2015 Episodic Other bone disease and musculoskeletal deformities (20 sources) Osteopenia; Translations: [Osteopenia] 01-25-2022 Episodic Other connective tissue disease (20 sources) Trochanteric bursitis; Translations: [Greater trochanteric bursitis, right] Resolved: 09-08-2020 12-21-2017 Episodic Comment on above: with SP conservative therapy with aleve , ice and demoed stretching nsaid, ice , demo st retches , massage roller Other connective tissue disease (20 sources) Swelling of limb; Translations: [Swelling of limb] Resolved: 02-11-2012 02-11-2012 Episodic Comment on above: for 30 years more on left leg. on waterpill and DrTad bey not want Other connective tissue disease (20 sources) Pain in left foot; Translations: [Foot pain, left] Resolved: 09-08-2020 06-05-2020 Episodic Other connective tissue disease (20 sources) Iliotibial band friction syndrome of right knee; Translations: [It band syndrome, right] Resolved: 09-08-2020 06-05-2020 Episodic Other connective tissue disease (20 sources) Pain of left hand; Translations: [Hand pain, left] Resolved: 01-07-2022 04-09-2021 Episodic Comment on above: osteoarthritis Other gastrointestinal disorders (20 sources) Irritable bowel syndrome; Translations: [Irritable Bowel Syndrome (Renamed from Functional bowel disease)] 12-21-2017 Chronic Comment on above: use bvveggie lax melany ly for years has constipation now for 11/2 year after GI flu has bouts of diarrhea. will get on probiotic. add metmucil. stable Other gastrointestinal disorders (20 sources) Diarrhea; Translations: [Diarrhea with dehydration] Resolved: 01-25-2022 01-07-2022 Episodic Other inflammatory condition of skin (20 sources) Psoriasis; Translations: [Psoriasis] Resolved: 06-04-2019 12-21-2017 Chronic Other injuries and conditions due to external causes (4 sources) Angioneurotic edema, initial encounter; Translations: [Angioedema of lips, initial encounter] 12-03-2022 Episodic Other injuries and conditions due to external causes (1 source) Injury of head; Translations: [Unspecified injury of head, initial encounter] 07-13-2023 Episodic Other non-traumatic joint disorders (20 sources) Joint pain; Translations: [Arthralgia] Resolved: 01-07-2022 12-21-2017 Episodic Comment on above: having joint pains a nd has psoarisis and labs neagative may need to see rheum. joints not as bad. some in hips if sit long. Other non-traumatic joint disorders (20 sources) Shoulder pain; Translations: [Acute pain of right shoulder] Resolved: 03-15-2022 11-06-2021 Episodic Other non-traumatic joint disorders (6 sources) Pain in right shoulder; Translations: [Acute pain of right shoulder] Resolved: 03-15-2022 12-03-2022 Episodic Other nutritional; endocrine; and metabolic disorders (20 sources) Overweight; Translations: [OVERWEIGHT] 12-21-2017 Chronic Comment on above: talk about diet and exercise with post menapause. will watch and count calories 1200 christopher/day Other nutritional; endocrine; and metabolic disorders (20 sources) Body mass index 30+ - obesity; Translations: [BMI 32.0-32.9,adult] Resolved: 03-15-2022 12-21-2017 Chronic Other nutritional; endocrine; and metabolic disorders (20 sources) Overweight; Translations: [OVERWEIGHT] 02-20-2020 Episodic Comment on above: talk about diet and exercise with post menapause. will watch and count calories 1200 christopher/day Other skin disorders (20 sources) Actinic keratosis; Translations: [ACTINIC KERATOSIS (Renamed from Actinic keratoses)] 12-21-2017 Episodic Other skin disorders (4 sources) Lip swelling; Translations: [Lip swelling] 12-03-2022 Episodic Otitis media and related conditions (20 sources) Other specified disorders of Eustachian tube, left ear; Translations: [Dysfunction of bilateral eustachian tubes] Resolved: 09-08-2020 05-17-2018 Episodic Comment on above: use nasocort or floa nse to help Pleurisy; pneumothorax; pulmonary collapse (20 sources) Atelectasis; Translations: [Atelectasis] 01-25-2022 Episodic Residual codes; unclassified (20 sources) Postmenopausal state; Translations: [Postmenopausal (Renamed from Postmenopausal status)] Resolved: 12-03-2022 12-06-2019 Episodic Residual codes; unclassified (20 sources) Current non-smoker ; Translations: [Current nonsmoker (Renamed from Current non-smoker)] 08-16-2018 Episodic Residual codes; unclassified (20 sources) Influenza vaccination declined; Translations: [Influenza vaccination declined (Renamed from Refused influenza vaccine)] 02-20-2020 Episodic Residual codes; unclassified (20 sources) Non-smoker; Translations: [Non-smoker] 05-29-2020 Episodic Residual codes; unclassified (20 sources) Insomnia; Translations: [Insomnia] 04-09-2021 Episodic Residual codes; unclassified (9 sources) Other specified health status; Translations: [Failure of outpatient treatment] Episodic Spondylosis; intervertebral disc disorders; other back problems (20 sources) Low back pain; Translations: [Low back pain] Resolved: 06-19-2013 06-19-2013 Episodic Comment on above: reveiwed with patien t recent tests MRI. mild DDD. stable Syncope (3 sources) Syncope; Translations: [Syncope and collapse] 09-02-2023 Episodic Unclassified (20 sources) Current non-smoker ; Translations: [Current nonsmoker (Renamed from Current non-smoker)] 12-21-2017 Unclassified (20 sources) BMI 32.0-32.9,adult Unclassified (20 sources) Unclassified (20 sources) Nutritional counseling Unclassified (20 sources) Hypertension, benign Unclassified (20 sources) Hypertension,benign( 401.1) Unclassified (20 sources) Psoriasiform dermatitis Unclassified (20 sources) WWV V70.0 Resolved: 02-03-2015 02-03-2015 Unclassified (20 sources) BMI 33.0-33.9,adult Unclassified (20 sources) Arthralgia Unclassified (20 sources) Greater trochanteric bursitis, right Unclassified (20 sources) Influenza vaccination declined (Renamed from Refused influenza vaccine); Translations: [Influenza vaccination declined] 12-21-2017 Unclassified (20 sources) ETD (Eustachian tube dysfunction), left Unclassified (20 sources) Dizzy Unclassified (20 sources) Non-smoker; Translations: [Non-smoker] 08-16-2018 Unclassified (20 sources) BMI 31.0-31.9,adult Unclassified (20 sources) ETD (Eustachian tube dysfunction), bilateral Unclassified (20 sources) Stress reaction Unclassified (13 sources) Foot pain, left Unclassified (13 sources) It band syndrome, right Unclassified (8 sources) Vaccine counseling Unclassified (6 sources) Fall, accidental Unclassified (8 sources) Hand pain, left Urinary tract infections (20 sources) Urinary tract infectious disease; Translations: [UTI (urinary tract infection)] Resolved: 06-04-2019 12-21-2017 Episodic Comment on above: try bactrim DS, revi ewed sensitivity reportoct 2021- E. coli, had reaction to macrobid Past or Other Problems Problem Classification Problem Date Documented Date Episodic/Chronic Coronary atherosclerosis and other heart disease (20 sources) Coronary atherosclerosis and other heart disease Hepatitis (2 sources) Hepatitis Mood disorders (20 sources) Mood disorders Other screening for suspected conditions (not mental disorders or infectious disease) (20 sources) Patient encounter status; Translations: [Colon cancer screening (Renamed from Encounter for screening for malignant neoplasm of colon)] Onset: 02-24-2024 02-20-2020 Episodic Comment on above: pt refused to do sco ping, or heme cardswilling to do cologard pt refused to do sco ping, or heme cardswilling to do cologard- normal 2020 Otitis media and related conditions (20 sources) Dysfunction of left eustachian tube; Translations: [Dysfunction of bilateral eustachian tubes] Resolved: 04-16-2019 05-17-2018 Comment on above: use nasocort or floa nse to help Unclassified (20 sources) Unspecified Diagnosis Resolved: 02-03-2015 02-03-2015 Unclassified (20 sources) Contact dermatitis, contact dermatitis due to unspecified agent, unspecified contact dermatitis Unclassified (20 sources) Pregnancies (); Translations: [Pregnancies ()] 12-21-2017 Comment on above: 2 Unclassified (20 sources) Deliveries (Parity); Translations: [Deliveries (Parity)] 12-21-2017 Comment on above: 2 Unclassified (20 sources) Influenza vaccination declined; Translations: [Influenza vaccination declined (Renamed from Refused influenza vaccine)] 12-21-2017 Unclassified (20 sources) Patient encounter status; Translations: [Nutritional counseling] Resolved: 12-21-2017 12-21-2017 Comment on above: pt refused to do sco ping, or heme cardswilling to do cologard Unclassified (20 sources) Annual Medicare Phyiscal WITHOUT abnormal findings (Renamed from Encounter for general adult medical examination without abnormal findings) Unclassified (20 sources) Colon cancer screening (Renamed from Encounter for screening for malignant neoplasm of colon) Unclassified (20 sources) Encounter for screening mammogram for breast cancer (Renamed from Encounter for screening mammogram for malignant neoplasm of breast) Unclassified (20 sources) Postmenopausal (Renamed from Postmenopausal status) Unclassified (20 sources) Deliveries (Parity); Translations: [Deliveries (Parity)] 05-29-2020 Comment on above: 2 Unclassified (20 sources) Pregnancies (); Translations: [Pregnancies ()] 05-29-2020 Comment on above: 2 Unclassified (2 sources) Encounter for annual general medical examination with abnormal findings in adult Urinary tract infections (9 sources) Urinary tract infections Results Test Name Value Interpretation Reference Range Facility Cardiology Visit Reporton Cardiology Visit Report [facility] [address] [place] [address] OFFICE VISIT Date of Service: 10/11/24 MR#: [id number] Acct: [id number] Name: MARLIN JARRELL Rep #: [id number] : 1955 Provider: ADRIENNE vang Age/Sex: 69/F Location: [facility] [place] Status: Signed HPI HPI History of Present Illness Details: This is a 69-year-old lady who presents to the office today for cardiovascular follow-up visit. She has a history of coronary artery with bypass surgery in 2008 with a left internal mammary artery to left anterior sending artery, saphenous vein graft to the right coronary artery and to the lateral circumflex artery. She had apparently been following up with you until recently when she presented to the hospital in June 2023 with her who was scheduled for a test. She was standing at the checkout counter and then had a syncopal episode. She was taken to the emergency room where she was evaluated with blood work was noted to be unremarkable she was mildly bradycardic and a stress test was ordered which did not demonstrate any evidence of ischemia. She says that her blood pressures at home have been normal. She also had a 24-hour Holter monitor performed demonstrating an average heart rate of 54 bpm and minimum of 43 bpm and maximal 83 bpm in sinus rhythm and occasional ectopic atrial rhythm with PACs and PVCs. From a cardiac standpoint, the patient is doing well. She denies any palpitations, chest pain, pressure or heaviness. She denies SOB, Orthopnea, and PND. She does not have bleeding issues; no blood in urine, stool, or nosebleeds. She denies any decrease in energy level, myalgias, or claudication. She does not have edema, or sudden weight gain. She denies lightheadedness, dizziness, syncopal or near syncopal episodes, and headaches. Intake Vital Signs 10/12/23 10:55 10/11/24 07:02 Height 5 ft 4 in 5 ft 4 in Weight: 167 lb BMI 28.6 BP 126/75 H Blood Pressure Location Lt brachial Position Sitting Respiration 18 Pulse 51 L Pulse Source Monitor Pulse Oximetry (%) 97 Intake Visit Reasons: 1 Y FU Travel Physical Therapist Required: No Is patient in pain?: No Allergies lisinopril Adverse Reaction (Intermediate, Verified 10/11/24 11:24) Swelling Medications ???Medication ???Instructions ???Recorded ???Confirmed ???Type buspirone 5 mg tablet 5 mg PO BID depression 12/21/21 History metformin 500 mg tablet 500 mg PO QHS diabetes 12/21/21 History pravastatin 40 mg tablet 80 mg PO QDAY cholesterol 12/21/21 10/11/24 History loperamide 2 mg capsule (Imodium 2 mg PO Q6H PRN loose stool #30 10/11/24 Rx A-D) caps ascorbic acid (vitamin C) 500 mg 500 mg PO DAILY 09/02/23 10/11/24 History tablet aspirin 81 mg tablet,delayed 81 mg PO DAILY 09/02/23 10/11/24 H istory release (Adult Aspirin Regimen) citalopram 40 mg tablet 40 mg PO DAILY 09/02/23 10/11/24 H istory cranberry 500 mg capsule 500 mg PO TID 09/02/23 10/11/24 Hi story Calm Day PO 10/12/23 10/11/24 History Sleep Time PO 10/12/23 10/11/24 History amlodipine 2.5 mg tablet 2.5 mg PO QDAY #60 tabs 10/12/23 0 10/11/24 Rx doxepin 10 mg capsule 10 mg PO QDAY 10/12/23 10/11/24 Hi story lactobacillus combination no.9 4 4,000 mmu cells PO QDAY 10/12/23 0 10/11/24 History billion cell capsule (Adult 50 Plus Probiotic) melatonin 10 mg capsule 10 mg PO HS 10/12/23 10/11/24 Hist ory Ejection fraction %: 60 Have you fallen in the past year?: No PFSH Medical History (Reviewed 10/11/24 @ 11:40 by Munira Jorgensen CANDY DEPOSITING MACHINE OPERATOR, CANDY DEPOSITING MACHINE OPERATOR-C) Hyperlipidemia Anxiety Insomnia Benign positional vertigo CAD (coronary artery disease) IBS (irritable bowel syndrome) Osteopenia Bradycardia Syncope Leukopenia Diabetes Myocardial infarct Hypertension Migraines Surgical History (Reviewed 10/11/24 @ 11:24 by Munira Jorgensen CANDY DEPOSITING MACHINE OPERATOR, CANDY DEPOSITING MACHINE OPERATOR-C) Hx of CABG Family History Mother Hypertension Father Heart disease Brother Heart disease Social History Smoking Status: Never smoker alcohol intake: never substance use type: does not use ROS Const Const: Negative for fatigue, weakness, headache(s) or frequent falls Eyes Eyes: Negative for blurry vision ENT ENT: Negative for headache(s), dizziness or Nosebleed/epistaxis Cardio Chest Pain: No Palpitations: No Edema: None Muscle aches with walking: None Resp Respiratory: Negative for SOB with activity, SOB at rest or SOB orthopnea SOB lying down GI GI: Negative nausea, vomiting, heartburn, bright, red blood in stools or black,tarry stools : Negative for hematuria Neuro Neuro: Negative for dizziness, lightheadednes (more content not included)... Normal [facility] Dexa Bone Density Studyon Dexa Bone Density Study [facility] [address] [place] [id number] Dexa Bone Density Study MR#: [id number] Acct: [id number] Name: MARLIN JARRELL Rep #: [id number] : 1955 F 68 From: Leoncio adams MD PCP: Dr. Mable Ford DO Status: [facility] Study: Dexa Bone Density Study Date of Exam: 01/24/24 Exam# [id number] Ordering Dr: [place] [id number] STUDY: DUAL ENERGY X-RAY ABSORPTIOMETRY / DXA REASON FOR EXAM: Female, 68 years old. [id number] TECHNIQUE: Bone Mineral Density (BMD) measurements of lumbar spine and bilateral hips were obtained. COMPARISON: Comparison is made with prior study dated January 19, 2022. FINDINGS: Lumbar Spine (L1-L4): g/cm2 (1.038) / T-score (-0.4) / Z-score (1.8) Findings are suggestive of normal bone density with a low fracture risk. Left Femur Total: g/cm2 (0.813) / T-score (-1.1) / Z-score (0.5) Left Femoral Neck: g/cm2 (0.745) / T-score (-0.9) / Z-score (0.9) Right Femur Total: g/cm2 (0.785) / T-score (-1.3) / Z-score (0.3) Right Femoral Neck: g/cm2 (0.647) / T-score (-1.8) / Z-score (0.0) The T-Scores on the most recent prior examination were: Lumbar Spine (L1-L4): There has been improvement of bone density since the previous examination. Left Femur Total: which represents a worsening of 4.4%. Right Femur Total: which represents a worsening of 5.1%. BD/Dexa Bone Density Study IMPRESSION: The patient is considered osteopenic as outlined below according to World David Organization (WHO) criteria with a moderate fracture risk. There has been worsening of bone density since the previous examination. Reference Information: The T-score is the number of standard deviations above or below the standard which is normal for young adults at their peak bone mineral density. The World Health Organization (WHO) interprets the T-scores as follows: Above -1 Normal bone density Between -1 and -2.5 Osteopenia Equal to / or below -2.5 Osteoporosis As a practical clinical guideline, osteopenia may be graded as follows: Mild -1 through -1.5 Moderate -1.6 through -2.0 Severe -2.1 through -2.4 The Z-score is the number of standard deviations above or below age-matched controls. A Z-score of less than -1.5 would be considered abnormal. References: 1. NIH Osteoporosis and Related Bone Diseases www osteo.org 2. International Society for Clinical Densitometry www iscd.org 3. National Osteoporosis Foundation www nof.org Electronically Signed: Leoncio Gorman MD at 8:28 EST , CC: Dr. Mable Ford DO Supervisor Taping: Signed Normal [facility] SCRN MAMM (CAD)W/BRADEN BILATo n 01-24-2024 SCRN MAMM (CAD)W/BRADEN BILAT [facility] Services [address] [place], [place] [address] SCRN MAMM (CAD)W/BRADEN BILAT MR#: [id number] Acct: [id number] Name: MARLIN JARRELL Rep #: [id number] : 1955 F 68 From: Leoncio adams MD PCP: Dr. Mable Ford DO Status: REG CLI Study: SCRN MAMM (CAD)W/BRADEN BILAT Date of Exam: 01/07 08/30 Exam# [id number] Ordering Dr: [place] [id number] MAMMOGRAPHY - BILATERAL SCREENING REASON FOR EXAM: Female, 68 years old. Routine annual screening examination. PERTINENT HISTORY: Non-contributory. Prior left ultrasound-guided breast biopsy. TECHNIQUE: Digital bilateral breast braden (3D mammographic acquisition) in the CC and MLO projections. 2-D mediolateral oblique (MLO) and craniocaudad (CC) views of both breasts were obtained. CAD: Full Field Digital Mammography with Computer Added Detection was performed. COMPARISON: Comparison is made with prior study January 19, 2022 and July 26, 2014. FINDINGS: Breast Composition: The breasts are heterogeneously dense, which may obscure small masses. There are no dominant masses or suspicious calcifications. A tissue clip marker is seen in the upper lateral aspect of the left breast from prior biopsy. This is seen adjacent to a 4.4 mm nodule. No other significant abnormalities are identified. There has been no significant change since the prior study. BI/SCRN MAMM (CAD)W/RBADEN BILAT IMPRESSION: Stable bilateral screening mammogram. Yearly follow-up mammogram recommended. (A) ASSESSMENT CATEGORY: BIRADS Category 2: Benign. A letter regarding these results will be sent to the patient by the facility within 30 days. Approximately 10% of breast cancers are not detected by mammography. A normal mammogram should not delay biopsy of a clinically suspicious abnormality. [id number] Electronically Signed: Leoncio Gorman MD at 11:44 EST Reading Location ID and State: [facility] / [place] , Service support , CC: Dr. Mable Ford DO Supervisor Taping: Signed Normal [facility] Echo Completeon 10-31-2023 Echo Complete [facility] [address] [place] [address] Echo Complete 10/31/23 0915 MR#: [id number] Acct: [id number] Name: MARLIN JARRELL Rep #: [id number] : 1955 68 From: Garrett De La Fuente MD Attending Dr: Dr. Garrett De La Fuente MD Status: REG C JIM Ordering Dr: Garrett De La Fuente MD Date: 10/31/23 Location: [facility] Sex: F C Admitted: Reason For Study: CAD/ASHD Procedure This was a 2D Doppler, Color Flow transthoracic echocardiogram. Exam performed in department. Left Ventricle Normal LV size. Left ventricular systolic function is normal. The left ventricular ejection fraction is 60 %. No regional wall motion abnormalities noted. Right Ventricle Normal RV size. Normal systolic function. Atria Normal left atrium. Normal right atrium. Mitral Valve Normal mitral valve. Tricuspid Valve Normal tricuspid valve. Mild tricuspid valve insufficiency. Aortic Valve Trisinus/trileaflet aortic valve. Mild focal aortic valve calcification. Pulmonic Valve Normal pulmonic valve. Great Vessels Normal aortic root. The pulmonary artery is normal size. Normal inferior vena cava. Pericardium/Pleural No pericardial effusion. MMode/2D Measurements Calculations LVIDd: 4.4 cm IVSd: 0.97 cm LVOT diam: 2.0 cm LVIDs: 3.5 cm LVPWd: 1.0 cm LVOT area: 3.2 cm2 RVDd: 3.6 cm FS: 21.1 % Ao root diam: 3.2 cm LAV(MOD-bp): 45.1 ml Ao sinus diam: 2.9 cm LA dimension: 4.4 cm LAV(MOD-bp) Indexed: 24.8 ml/m2 LAV(MOD-sp2): 51.2 ml LAV(MOD-sp4): 39.[address] [place]unction: 2.3 cm LA A4 area: 15.4 cm2 RA A4 area: 12.7 cm2 Time Measurements MV dec time: 0.19 sec Doppler Measurements Calculations MV E max mati: 66.0 cm/sec Lat Peak E' Mati: 10.4 cm/sec Med Peak E' Mati: 6.7 cm/sec MV A max mati: 53.2 cm/sec E/E' lat: 6.4 E/E' med: 9.8 MV E/A: 1.2 MV V2 max: 78.4 cm/sec MV P1/2t max mati: 79.7 cm/sec Ao V2 max: 142.8 cm/sec MV max P.5 mmHg MV P1/2t: 78.2 msec Ao max P.2 mmHg MV V2 mean: 34.1 cm/sec MV dec slope: 298.5 cm/sec2 Ao V2 mean: 81.8 cm/sec MV mean P.60 mmHg Ao mean P.4 mmHg MV V2 VTI: 33.3 cm MVA(P1/2t): 2.8 cm2 Ao V2 VTI: 32.4 cm MVA(VTI): 3.0 cm2 AV (velocity ratio): 0.95 FAVIOLA(I,D): 3.1 cm2 FAVIOLA(V,D): 2.6 cm2 LV V1 max: 115.8 cm/sec MR max mati: 508.5 cm/sec SV(LVOT): 100.3 ml LV V1 max P.4 mmHg MR max P.4 mmHg LV V1 mean P.7 mmHg LV V1 mean: 74.5 cm/sec LV V1 VTI: 30.9 cm PA V2 max: 88.5 cm/sec TR max mati: 205.5 cm/sec PA max PG (full): 1.8 mmHg TR max P.9 mmHg PA V2 mean: 57.7 cm/sec PA mean PG (full): 0.79 mmHg ECHO/Echo Complete Interpretation Summary Normal LV size. Left ventricular systolic function is normal. The left ventricular ejection fraction is 60 %. Structurally normal valves. Ordering Physician: Garrett De La Fuente Referring Physician: Garrett De La Fuente Performed By: Yoel Albright RCS 10/31/23 1428 Date Garrett De La Fuente MD CC: Dr. Garrett De La Fuente MD; Dr. Mable Ford DO Date Dictated: 10/31/23914 Date Transcribed: 10/31/23 142 Supervisor Taping: Signed Normal [facility] Blood Glucose , Office [phone])Ordered By: BEBO Barry on 12-03-2022 Glucose Glucometer (BldC) [Moles/Vol] 103 1 Normal [facility]; [facility] Work Phone: HgA1C , Office ([phone])Ordere d By: BEBO Barry on 12-03-2022 HbA1c (Bld) [Mass fraction] 5.9 % Normal 4.6 - 7.1 [facility]; [facility] Work Phone: CBC W/AUTO DIFF WBC ([phone])O rdered By: Rotor Casting Machine Setup Operator on 11-30-2022 Basophils (Bld) [#/Vol] 0.1 10*3/uL Normal 0.0-0.2 [facility]; [facility] Work Phone: Basophils/100 WBC (Bld) 2 % Normal [facility]; [facility] Work Phone: Eosinophils (Bld) [#/Vol] 0.4 10*3/uL Normal 0.0-0.4 [facility]; [facility] Work Phone: Eosinophils/100 WBC (Bld) 6 % Normal [facility]; [facility] Work Phone: Erythrocyte distribution width (RBC) [Ratio] 13.1 % Normal 11.7-15.4 [facility]; [facility] Work Phone: Hematocrit (Bld) [Volume fraction] 38.9 % Normal 34.0-46.6 [facility]; [facility] Work Phone: Hemoglobin (Bld) [Mass/Vol] 12.5 g/dL Normal 11.1-15.9 [facility]; [facility] Work Phone: Immature granulocytes (Bld) [#/Vol] 0.0 10*3/uL Normal 0.0-0.1 [facility]; [facility] Work Phone: Immature granulocytes/100 WBC (Bld) 0 % Normal [facility]; [facility] Work Phone: Lymphocytes (Bld) [#/Vol] 2.1 10*3/uL Normal 0.7-3.1 [facility]; [facility] Work Phone: Lymphocytes/100 WBC (Bld) 31 % Normal [facility]; [facility] Work Phone: MCH (RBC) [Entitic mass] 30.9 pg Normal 26.6-33.0 [facility]; [facility] Work Phone: MCHC (RBC) [Mass/Vol] 32.1 g/dL Normal 31.5-35.7 [facility] prehensive [facility]; [facility] Work Phone: MCV (RBC) [Entitic vol] 96 fL Normal 79-97 [facility]; [facility] Work Phone: Monocytes (Bld) [#/Vol] 0.4 10*3/uL Normal 0.1-0.9 [facility]; [facility] Work Phone: Monocytes/100 WBC (Bld) 6 % Normal [facility]; [facility] Work Phone: Neutrophils (Bld) [#/Vol] 3.7 10*3/uL Normal 1.4-7.0 [facility]; [facility] Work Phone: Neutrophils/100 WBC (Bld) 55 % Normal [facility]; [facility] Work Phone: Platelets (Bld) [#/Vol] 371 10*3/uL Normal 150-450 [facility]; [facility] Work Phone: RBC (Bld) [#/Vol] 4.04 10*6/uL Normal 3.77-5.28 [facility] Work Phone: WBC (Bld) [#/Vol] 6.8 10*3/uL Normal 3.4-10.8 [facility]; [facility] Work Phone: HEPATITIS C ANTIBODY ([phone]) Ordered By: Rotor Casting Machine Setup Operator on 11-30-2022 HCV Ab Signal/Cutoff IA [Rel units/Vol] Non-Reactive Normal [facility]; [facility] Work Phone: LIPID PANEL ([id number])Ordered B y: Rotor Casting Machine Setup Operator on 11-30-2022 Cholesterol [Mass/Vol] 169 mg/dL Normal 100-199 [facility]; [facility] Work Phone: Cholesterol in HDL [Mass/Vol] 42 mg/dL Normal [facility]; [facility] Work Phone: Triglyceride [Mass/Vol] 147 mg/dL Normal 0-149 [facility]; [facility] Work Phone: LIPID PANEL ([phone]) 26 mg/dL Normal 5-40 [facility]; [facility] Work Phone: LIPID PANEL ([id number]) 101 mg/dL Abnormal 0-99 [facility]; [facility] Work Phone: LIPID PANEL ([id number]) 2.4 {ratio} Normal 0.0-3.2 [facility] Work Phone: METABOLIC PANEL, COMPREHENSI VE ([id number])Ordered By: Rotor Casting Machine Setup Operator on 11-30-2022 Albumin [Mass/Vol] 4.6 g/dL Normal 3.9-4.9 [facility]; [facility] Work Phone: Albumin/Globulin [Mass ratio] 2.1 {ratio} Normal 1.2-2.2 [facility]; [facility] Work Phone: ALP [Catalytic activity/Vol] 106 U/L Normal 44-121 [facility]; [facility] Work Phone: ALT [Catalytic activity/Vol] 18 U/L Normal 0-32 [facility]; [facility] Work Phone: AST [Catalytic activity/Vol] 20 U/L Normal 0-40 [facility]; [facility] Work Phone: Bilirubin [Mass/Vol] 0.3 mg/dL Normal 0.0-1.2 [facility] Work Phone: Calcium [Mass/Vol] 9.6 mg/dL Normal 8.7-10.3 [facility]; [facility] Work Phone: Chloride [Moles/Vol] 103 mmol/L Normal 96-106 [facility]; [facility] Work Phone: CO2 [Moles/Vol] 22 mmol/L Normal 20-29 [facility]; [facility] Work Phone: Creatinine [Mass/Vol] 1.01 mg/dL Abnormal 0.57-1.00 [facility] prehensive [facility]; [facility] Work Phone: Globulin (S) [Mass/Vol] 2.2 g/dL Normal 1.5-4.5 [facility]; [facility] Work Phone: Glucose [Mass/Vol] 98 mg/dL Normal 70-99 Compre [facility]; [facility] Work Phone: Potassium [Moles/Vol] 4.8 mmol/L Normal 3.5-5.2 [facility]; [facility] Work Phone: Protein [Mass/Vol] 6.8 g/dL Normal 6.0-8.5 [facility]; [facility] Work Phone: Sodium [Moles/Vol] 140 mmol/L Normal 134-144 [facility]; [facility] Work Phone: Urea nitrogen [Mass/Vol] 14 mg/dL Normal 8-27 [facility]; [facility] Work Phone: Urea nitrogen/Creatinine [Mass ratio] 14 mg/mg Normal 12- [facility]; [facility] Work Phone: METABOLIC PANEL, COMPREHENSIVE ([id number]) 60 mL/min/1.73 Normal [facility]; [facility] Work Phone: TSH ([phone])Ordered By: Syste m Operating Systems Programmer on 11-30-2022 TSH Qn 1.160 {uIU/mL} Normal 0.450-4.50 0 [facility]; [facility] Work Phone: HgA1C , Office ([phone])Ordere d By: Kandi Calhoun on 03-15-2022 HbA1c (Bld) [Mass fraction] 6.0 % Normal 4.6 - 7.1 [facility]; [facility] Work Phone: CBC W/AUTO DIFF WBC ([phone])O rdered By: Rotor Casting Machine Setup Operator on 01-07-2022 Basophils (Bld) [#/Vol] 0.1 10*3/uL Normal 0.0-0.2 [facility]; [facility] Work Phone: Basophils/100 WBC (Bld) 1 % Normal [facility]; [facility] Work Phone: Eosinophils (Bld) [#/Vol] 0.1 10*3/uL Normal 0.0-0.4 [facility]; [facility] Work Phone: Eosinophils/100 WBC (Bld) 1 % Normal [facility]; [facility] Work Phone: Erythrocyte distribution width (RBC) [Ratio] 14.1 % Normal 11.7-15.4 [facility]; [facility] Work Phone: Hematocrit (Bld) [Volume fraction] 35.9 % Normal 34.0-46.6 [facility]; [facility] Work Phone: Hemoglobin (Bld) [Mass/Vol] 11.8 g/dL Normal 11.1-15.9 [facility]; [facility] Work Phone: Immature granulocytes (Bld) [#/Vol] 0.0 10*3/uL Normal 0.0-0.1 [facility]; [facility] Work Phone: Immature granulocytes/100 WBC (Bld) 0 % Normal [facility]; [facility] Work Phone: Lymphocytes (Bld) [#/Vol] 2.2 10*3/uL Normal 0.7-3.1 [facility]; [facility] Work Phone: Lymphocytes/100 WBC (Bld) 28 % Normal [facility]; [facility] Work Phone: MCH (RBC) [Entitic mass] 31.5 pg Normal 26.6-33.0 [facility]; [facility] Work Phone: MCHC (RBC) [Mass/Vol] 32.9 g/dL Normal 31.5-35.7 [facility] prehensive [facility]; [facility] Work Phone: MCV (RBC) [Entitic vol] 96 fL Normal 79-97 [facility]; [facility] Work Phone: Monocytes (Bld) [#/Vol] 0.7 10*3/uL Normal 0.1-0.9 [facility]; [facility] Work Phone: Monocytes/100 WBC (Bld) 9 % Normal [facility]; [facility] Work Phone: Neutrophils (Bld) [#/Vol] 4.8 10*3/uL Normal 1.4-7.0 [facility]; [facility] Work Phone: Neutrophils/100 WBC (Bld) 61 % Normal [facility]; [facility] Work Phone: Platelets (Bld) [#/Vol] 453 10*3/uL Abnormal 150-450 [facility]; [facility] Work Phone: RBC (Bld) [#/Vol] 3.75 10*6/uL Abnormal 3.77-5.28 [facility]; [facility] Work Phone: WBC (Bld) [#/Vol] 7.9 10*3/uL Normal 3.4-10.8 [facility]; [facility] Work Phone: METABOLIC PANEL, BASIC ([phone])Ordered By: Rotor Casting Machine Setup Operator on 01-07-2022 Calcium [Mass/Vol] 9.4 mg/dL Normal 8.7-10.3 [facility]; [facility] Work Phone: Chloride [Moles/Vol] 104 mmol/L Normal 96-106 [facility]; [facility] Work Phone: CO2 [Moles/Vol] 22 mmol/L Normal 20-29 [facility]; [facility] Work Phone: Creatinine [Mass/Vol] 0.81 mg/dL Normal 0.57-1.00 [facility]; [facility] Work Phone: Glucose [Mass/Vol] 93 mg/dL Normal 70-99 [facility]; [facility] Work Phone: Potassium [Moles/Vol] 4.5 mmol/L Normal 3.5-5.2 [facility]; [facility] Work Phone: Sodium [Moles/Vol] 141 mmol/L Normal 134-144 [facility]; [facility] Work Phone: Urea nitrogen [Mass/Vol] 9 mg/dL Normal 8- [facility]; [facility] Work Phone: Urea nitrogen/Creatinine [Mass ratio] 11 mg/mg Abnormal 02-03 [facility]; [facility] Work Phone: METABOLIC PANEL, BASIC ([id number]) 79 mL/min/1.73 Normal [facility]; [facility] Work Phone: URINE MORGAN CULTURE-IDENTIFICA [place] ([phone])Ordered By: Rotor Casting Machine Setup Operator on 01-07-2022 Bacteria identified Cx Nom (U) Final report Abnormal [facility]; [facility] Work Phone: Bacteria identified Cx Nom (U) Enterococcus faecalis Abnormal [facility]; [facility] Work Phone: Other Antibiotic [Susc] MIHEAD Normal [facility]; [facility] Work Phone: Absolute lymphocyte counton 12-23-2021 Lymphocytes Auto (Unsp spec) [#/Vol] 1.67 10*3/uL 0.83-4.51 [facility] Work Phone: Basophil percentageon 2021 Basophil percentage 2.5 mg/dL 2.5-4.9 [facility] Work Phone: Basophils/100 WBC (Bld) 0.7 % 0-1 [facility] Work Phone: Chloride [Moles/Vol] 111 mmol/L 98-107 [facility] Work Phone: Eosinophils/100 WBC (Bld) 2.4 % 0-5 [facility] Work Phone: Glucose [Mass/Vol] 93 mg/dL 74-106 [facility] Work Phone: Neutrophils (Bld) [#/Vol] 0.9 10*3/uL 2.0-7.7 [facility] Work Phone: Neutrophils/100 WBC (Bld) 31.0 % 47-70 [facility] Work Phone: Potassium [Moles/Vol] 3.7 mmol/L 3.5-5.1 [facility] Work Phone: Sodium [Moles/Vol] 140 mmol/L 136-145 [facility] Work Phone: WBC (Bld) [#/Vol] 2.9 10*3/uL 4.4-11.0 [facility] Work Phone: Blood erythrocytes count (nu mber/volume)on 12-23-2021 RBC (Bld) [#/Vol] 3.55 10*6/uL 4.2-5.4 [facility] Work Phone: Blood hemoglobin measurement (mass/volume)on 12-23-2021 Hemoglobin (Bld) [Mass/Vol] 11.4 g/dL 12.0-15.0 [facility] Work Phone: Blood lymphocytes/100 leukoc yteson 12-23-2021 Lymphocytes/100 WBC (Bld) 56.8 % 19-41 [facility] Work Phone: Blood monocytes/100 leukocyt eson 12-23-2021 Monocytes/100 WBC (Bld) 8.8 % 0-10 [facility] Work Phone: Blood platelet mean volumeon 12-23-2021 Platelet mean volume (Bld) [Entitic vol] 9.9 fL 6.2-12.0 [facility] Work Phone: Determination of erythrocyte mean corpuscular volume (MCV)on 12-23-2021 MCV (RBC) [Entitic vol] 96.6 fL 81-99 [facility] Work Phone: Glucose Glucometer (BldC) [M ass/Vol]on 12-23-2021 Glucose [Mass/Vol] 100 mg/dL 74-106 [facility] Work Phone: Comment on above: MANAGEMENT OF PATIEN T CARE PER NURSING PROTOCOL Hematocrit Auto (Bld) [Volum e fraction]on 12-23-2021 Hematocrit (Bld) [Volume fraction] 34.3 % 37-47 [facility] Work Phone: Laboratory - Chemistry and C hemistry - challengeon 12-23-2021 CO2 [Moles/Vol] 22.0 mmol/L 21.0-32.0 [facility] Work Phone: Magnesium [Mass/Vol] 2.2 mg/dL 1.6-2.6 [facility] Work Phone: Urea nitrogen/Creatinine [Mass ratio] 9.5 mg/mg 10-20 [facility] Work Phone: Laboratory - Hematology and Cell countson 12-23-2021 Erythrocyte distribution width (RBC) [Entitic vol] 51.5 fL 35.1-43.9 [facility] Work Phone: Erythrocyte distribution width (RBC) [Ratio] 14.5 % 11.6-14.6 [facility] Work Phone: Immature granulocytes/100 WBC (Bld) 0.300 % 0.0-0.9 [facility] Work Phone: Comment on above: IG% - Immature Granu locytes (promyelocytes, myelocytes and metamyelocytes) > 1% indicates that a LEFT SHIFT is Present. MCH (RBC) [Entitic mass] 32.1 pg 27.0-32.0 [facility] Work Phone: Nucleated RBC/100 WBC (Bld) [Ratio] 0 % 0-5 [facility] Work Phone: MCHC Auto (RBC) [Mass/Vol]on 12-23-2021 MCHC (RBC) [Mass/Vol] 33.2 g/dL 32-36 [facility] Work Phone: No Panel Informationon 12-23 Estimated Creatinine Clearance Calc 46.50 ml/min [facility] Work Phone: Estimated GFR (MDRD) Amer 121 mL/min >60 [facility] Work Phone: Comment on above: GFR Calc Estimated GFR (MDRD) Non-Af Amer 100 mL/min >60 [facility] Work Phone: Comment on above: Non- GFR Calc Thyroid Stimulating Hormone (TSH) 2.74 uIU/mL 0.358-3.74 [facility] Work Phone: Platelets bldon 12-23-2021 Platelets (Bld) [#/Vol] 361 10*3/uL 150-450 [facility] Work Phone: Serum or plasma calcium domingo urement (mass/volume)on 12-23-2021 Calcium [Mass/Vol] 8.6 mg/dL 8.5-10.1 [facility] Work Phone: Serum or plasma creatinine m easurement (mass/volume)on 12-23-2021 Creatinine [Mass/Vol] 0.63 mg/dL 0.55-1.02 [facility] Work Phone: Comment on above: The validity of the calculated GFR & GFRAA in patients over 70 years has not been determined. Clinical correlation is essential. Serum or plasma urea nitroge n measurement (mass/volume)on 12-23-2021 Urea nitrogen [Mass/Vol] 6 mg/dL 7-18 [facility] Work Phone: Thin prep Papanicolaou smear with manual screeningon 12-23-2021 Thin prep Papanicolaou smear with manual screening 7 5-15 [facility] Work Phone: Absolute lymphocyte counton 12-21-2021 Lymphocytes Auto (Unsp spec) [#/Vol] 1.08 10*3/uL 0.83-4.51 [facility] Work Phone: Basophil percentageon 2021 Lactate [Moles/Vol] 1.7 mmol/L [facility].4-[facility] Work [facility]: Basophil percentage 25-50 SEEN /hpf 0-5 [facility] Work Phone: Basophils/100 WBC (Bld) 1.0 % 0-1 [facility] Work Phone: Bilirubin [Mass/Vol] 0.30 mg/dL 0.20-1.00 [facility] Work Phone: Comment on above: For patients on eltr ombopag therapy, use of Dimension [place] TBIL is not recommended. Chloride [Moles/Vol] 101 mmol/L 98-107 [facility] Work Phone: Eosinophils/100 WBC (Bld) 0.3 % 0-5 [facility] Work Phone: Glucose [Mass/Vol] 116 mg/dL 74-106 [facility] Work Phone: Comment on above: Fasting Glucose resu lt from 100 to 125 mg/dL suggests IMPAIRED HOMEOSTASIS per A.D.A. criteria. Lactate [Moles/Vol] 2.3 mmol/L 0.4-2.0 [facility] Work Phone: Comment on above: Critical Result(s) C alled at: 14:56:27 12/21/2021 by: YULY STRANGE RN ED. Results read back by same. Neutrophils (Bld) [#/Vol] 1.5 10*3/uL 2.0-7.7 [facility] Work Phone: Neutrophils/100 WBC (Bld) 50.0 % 47-70 [facility] Work Phone: Potassium [Moles/Vol] 3.7 mmol/L 3.5-5.1 [facility] Work Phone: Protein [Mass/Vol] 8.1 g/dL 6.4-8.2 [facility] Work Phone: Sodium [Moles/Vol] 135 mmol/L 136-145 [facility] Work Phone: WBC (Bld) [#/Vol] 3.0 10*3/uL 4.4-11.0 [facility] Work Phone: Bilirubin Test strip Ql (U)o n 12-21-2021 Bilirubin Ql (U) 1 mg/dL Negative [facility] Work Phone: Comment on above: COLOR OF URINE MAY A FFECT DIPSTICK RESULTS. Blood erythrocytes count (nu mber/volume)on 12-21-2021 RBC (Bld) [#/Vol] 4.35 10*6/uL 4.2-5.4 [facility] Work Phone: Blood hemoglobin measurement (mass/volume)on 12-21-2021 Hemoglobin (Bld) [Mass/Vol] 13.6 g/dL 12.0-15.0 [facility] Work Phone: Blood lymphocytes/100 leukoc yteson 12-21-2021 Lymphocytes/100 WBC (Bld) 36.0 % 19-41 [facility] Work Phone: Blood monocytes/100 leukocyt eson 12-21-2021 Monocytes/100 WBC (Bld) 12.0 % 0-10 [facility] Work Phone: Blood platelet mean volumeon 12-21-2021 Platelet mean volume (Bld) [Entitic vol] 9.6 fL 6.2-12.0 [facility] Work Phone: Determination of erythrocyte mean corpuscular volume (MCV)on 12-21-2021 MCV (RBC) [Entitic vol] 94.9 fL 81-99 [facility] Work Phone: Hematocrit Auto (Bld) [Volum e fraction]on 12-21-2021 Hematocrit (Bld) [Volume fraction] 41.3 % 37-47 [facility] Work Phone: Ketones Test strip Ql (U)on 12-21-2021 Ketones Ql (U) 150 mg/dl Negative [facility] Work Phone: Comment on above: CRITICAL VALUE *HCRI TICAL VALUE VERIFIED. CALLED TO AMADO SKINNER (ER)12/21/21 1521 [place].RESULTS READ BACK BY SAME. Laboratory - Chemistry and C hemistry - challengeon 12-21-2021 ALP [Catalytic activity/Vol] 120 U/L 45-117 [facility] Work Phone: ALT [Catalytic activity/Vol] 30 U/L 13-56 [facility] Work Phone: CO2 [Moles/Vol] 25.0 mmol/L 21.0-32.0 [facility] Work Phone: Globulin (S) [Mass/Vol] 4.2 g/dL 2.2-4.2 [facility] Work Phone: Lipase [Catalytic activity/Vol] 118 U/L 73-393 [facility] Work Phone: Urea nitrogen/Creatinine [Mass ratio] 12.0 mg/mg 10-20 [facility] Work Phone: Laboratory - Hematology and Cell countson 12-21-2021 Erythrocyte distribution width (RBC) [Entitic vol] 48.7 fL 35.1-43.9 [facility] Work Phone: Erythrocyte distribution width (RBC) [Ratio] 13.9 % 11.6-14.6 [facility] Work Phone: Immature granulocytes/100 WBC (Bld) 0.700 % 0.0-0.9 [facility] Work Phone: Comment on above: IG% - Immature Granu locytes (promyelocytes, myelocytes and metamyelocytes) > 1% indicates that a LEFT SHIFT is Present. MCH (RBC) [Entitic mass] 31.3 pg 27.0-32.0 [facility] Work Phone: Nucleated RBC/100 WBC (Bld) [Ratio] 0 % 0-5 [facility] Work Phone: MCHC Auto (RBC) [Mass/Vol]on 12-21-2021 MCHC (RBC) [Mass/Vol] 32.9 g/dL 32-36 [facility] Work Phone: Mucus LM Ql (Urine sed)on Mucus Ql (Urine sed) 0 SEEN /hpf [facility] Work Phone: Nitrite Test strip Ql (U)on 12-21-2021 Nitrite Ql (U) Negative Negative [facility] Work Phone: No Panel Informationon 12-21 Estimated Creatinine Clearance Calc 39.74 ml/min [facility] Work Phone: Estimated GFR (MDRD) Amer 59 mL/min >60 [facility] Work Phone: Comment on above: GFR Calc Estimated GFR (MDRD) Non-Af Amer 49 mL/min >60 [facility] Work Phone: Comment on above: Non- GFR Calc Platelets bldon 12-21-2021 Platelets (Bld) [#/Vol] 386 10*3/uL 150-450 [facility] Work Phone: Protein Test strip Ql (U)on 12-21-2021 Protein Ql (U) 30 mg/dl Negative [facility] Work Phone: Serum or plasma albumin domingo urement (mass/volume)on 12-21-2021 Albumin [Mass/Vol] 3.9 g/dL 3.2-5.0 [facility] Work Phone: Serum or plasma albumin/glob ulin mass ratioon 12-21-2021 Albumin/Globulin [Mass ratio] 0.9 {ratio} 0.9-2.4 [facility] Work Phone: Serum or plasma calcium domingo urement (mass/volume)on 12-21-2021 Calcium [Mass/Vol] 9.4 mg/dL 8.5-10.1 [facility] Work Phone: Serum or plasma creatinine m easurement (mass/volume)on 12-21-2021 Creatinine [Mass/Vol] 1.17 mg/dL 0.55-1.02 [facility] Work Phone: Comment on above: The validity of the calculated GFR & GFRAA in patients over 70 years has not been determined. Clinical correlation is essential. Serum or plasma urea nitroge n measurement (mass/volume)on 12-21-2021 Urea nitrogen [Mass/Vol] 14 mg/dL 7-18 [facility] Work Phone: Squamous epithelial cells de tection in urine sediment by light microscopyon 12-21-2021 Epithelial cells.squamous LM Ql (Urine sed) 5-10 SEEN /hpf 5-10 [facility] Work Phone: Thin prep Papanicolaou smear with manual screeningon 12-21-2021 Thin prep Papanicolaou smear with manual screening 28 U/L 15-37 [facility] Work Phone: Thin prep Papanicolaou smear with manual screening 9 5-15 [facility] Work Phone: Urine blood detectionon 12-08 RBC Ql (U) 25 /ul Negative [facility] Work Phone: RBC Ql (U) 0-5 SEEN /hpf 0-5 [facility] Work Phone: Urine clarityon 12-21-2021 Clarity (U) Sl. Cloudy Clear [facility] Work Phone: Urine color determinationon 12-21-2021 Color (U) Yellow Yellow [facility] Work Phone: Urine glucose detectionon Glucose Ql (U) Normal mg/dl Normal [facility] Work Phone: Urine leukocyte esterase det ection by dipstickon 12-21-2021 Leukocyte esterase Test strip Ql (U) 500 /ul Negative [facility] Work Phone: Urine pHon 12-21-2021 pH (U) 6.0 [pH] 5.0 - 8.0 [facility] Work Phone: Urine sediment bacteria coun t by microscopy (number/high power field)on 12-21-2021 Bacteria LM.HPF (Urine sed) [#/Area] 1 /[HPF] None Seen [facility] Work Phone: Urine specific gravity measu rementon 12-21-2021 Specific gravity (U) [Rel density] 1.020 1.002-1.03 0 [facility] Work Phone: Urobilinogen Auto test strip Ql (U)on 12-21-2021 Urobilinogen Ql (U) Normal mg/dl Normal [facility] Work Phone: Urinalysis, Office ([phone])Or dered By: Marti Reid on 12-16-2021 Bilirubin Ql (U) Negative Normal Comprehe nsive [facility]; [facility] Work Phone: Glucose Test strip (U) [Mass/Vol] Negative Normal [facility]; [facility] Work Phone: Hemoglobin Ql (U) +++ Abnormal Compreh ensive [facility]; [facility] Work Phone: Ketones Ql (U) Negative Normal Comprehens dan[facility]; [facility] Work Phone: Leukocyte esterase Test strip Ql (U) Large Normal [facility]; [facility] Work Phone: Nitrite Ql (U) Negative Normal Comprehens [facility]; [facility] Work Phone: pH (U) 6.0 [pH] Normal [facility]; [facility] Work Phone: Comment on above: 5.5 Protein Ql (U) ++ Abnormal Comprehens [facility]; [facility] Work Phone: Specific gravity (U) [Rel density] 1.020 1 Normal [facility]; [facility] Work Phone: Urobilinogen (24H U) [Mass/Time] Normal Normal [facility]; [facility] Work Phone: URINE MORGAN CULTURE-IDENTIFICA [place] ([phone])Ordered By: [employer] Casting Machine Setup Operator on 12-03-2021 Bacteria identified Cx Nom (U) Final report Abnormal [facility]; [facility] Work Phone: Comment on above: PATIENT NOT FASTINGP ERFORMED BY: CB [facility] Ldvbse4067 [facility] [id number] Information: SRC:UC Bacteria identified Cx Nom (U) Escherichia coli Abnormal [facility]; [facility] Work Phone: Comment on above: Cefazolin <=4 ug/mLC efazolin with an GRISELDA <=16 predicts susceptibility to the oral agentscefaclor, cefdinir, cefpodoxime, cefprozil, cefuroxime, cephalexin,and loracarbef when used for therapy of uncomplicated urinary tractinfections due to E. coli, Klebsiella pneumoniae, and Proteusmirabilis.Greater than 100,000 colony forming units per mL PATIENT NOT FASTINGP ERFORMED BY: [employer] ConfortVisuelLifeCare Hospitals of [facility] [place] [id number] Information: SRC:NATHAN Other Antibiotic [Susc] MIHEAD Normal C omprehensive [facility]; [facility] Work Phone: Comment on above: S = Susceptible; I = Intermediate; R = Resistant P = Positive; N = Negative MICS are expressed in micrograms per mL Antibiotic RSLT#1 RSLT#2 RSLT#3 RSLT#4Amoxicillin/Clavulanic Acid SAmpicillin SCefepime SCeftriaxone SCefuroxime SCiprofloxacin SErtapenem SGentamicin SImipenem SLevofloxacin SMeropenem SNitrofurantoin SPiperacillin/Tazobactam STetracycline STobramycin STrimethoprim/Sulfa S PATIENT NOT FASTINGP ERFORMED BY: [employer] ConfortVisuelLifeCare Hospitals [facility] [place] [id number] Information: SRC:NATHAN Urinalysis, Office ([phone])Or dered By: Nathan Moses on 12-03-2021 Bilirubin Ql (U) Negative Normal Comprehe nsive [facility] Medicine; [facility] Work Phone: Glucose Test strip (U) [Mass/Vol] Negative Normal [facility]; [facility] Work Phone: Hemoglobin Ql (U) +++ Abnormal Compreh ensive [facility]; [facility] Work Phone: Ketones Ql (U) Negative Normal Comprehens [facility]; [facility] Work Phone: Leukocyte esterase Test strip Ql (U) Moderate Normal [facility]; [facility] Work Phone: Nitrite Ql (U) Negative Normal Comprehens [facility]; [facility] Work Phone: pH (U) 6 [pH] Abnormal [facility]; [facility] Work Phone: Protein Ql (U) Negative Normal Comprehens dan[facility]; [facility] Work Phone: Specific gravity (U) [Rel density] 1.015 1 Normal [facility]; [facility] Work Phone: Urobilinogen (24H U) [Mass/Time] Normal Normal [facility]; [facility] Work Phone: Blood Glucose , Office ([phone])Ordered By: Nathan Moses on 11-06-2021 Glucose Glucometer (BldC) [Moles/Vol] 114 1 Normal [facility]; [facility] Work Phone: HgA1C , Office ([phone])Ordere d By: Nathan Moses on 11-06-2021 HbA1c (Bld) [Mass fraction] 5.9 % Normal 4.6 - 7.1 [facility]; [facility] Work Phone: Blood Glucose , Office ([phone])Ordered By: Viviana Strickland on 08-05-2021 Glucose Glucometer (BldC) [Moles/Vol] 88 1 Normal [facility]; [facility] Work Phone: HgA1C , Office ([phone])Ordere d By: Viviana Strickland on 08-05-2021 HbA1c (Bld) [Mass fraction] 6.1 % Normal 4.6 - 7.1 [facility]; [facility] Work Phone: CBC, PLATELETS & AUT DIFF ([phone])Ordered By: [employer] Setup Operator on 07-30-2021 Basophils (Bld) [#/Vol] 0.1 10*3/uL Normal 0.0-0.2 [facility]; [facility] Work Phone: Comment on above: PATIENT WAS FASTINGP ERFORMED BY: ANCELMO Lamsasharon HickmanVforlt2612 ConfortVisuelLifeCare Hospitals [facility] [place] [id number] Basophils/100 WBC (Bld) 1 % Normal C omprehensive [facility]; [facility] Work Phone: Comment on above: PATIENT WAS FASTINGP ERFORMED BY: ANCELMO [facility] Gatbrz0304Tyro Paymentsin [place] [id number] Eosinophils (Bld) [#/Vol] 0.2 10*3/uL Normal 0.0-0.4 [facility]; [facility] Work Phone: Comment on above: PATIENT WAS FASTINGP ERFORMED BY: [facility] Uelhcb[address] [facility] [id number] Eosinophils/100 WBC (Bld) 3 % Normal [facility]; [facility] Work Phone: Comment on above: PATIENT WAS FASTINGP ERFORMED BY: [facility]6370 [facility] [id number] Erythrocyte distribution width (RBC) [Ratio] 13.4 % Normal 11.7-15.4 [facility]; [facility] Work Phone: Comment on above: PATIENT WAS FASTINGP ERFORMED BY: [facility] Jhfeub0764 [facility] [id number] Hematocrit (Bld) [Volume fraction] 37.4 % Normal 34.0-46.6 [facility]; [facility] Work Phone: Comment on above: PATIENT WAS FASTINGP ERFORMED BY: [facility] Pwmuui6287 [facility] [id number] Hemoglobin (Bld) [Mass/Vol] 12.2 g/dL Normal 11.1-15.9 [facility]; [facility] Work Phone: Comment on above: PATIENT WAS FASTINGP ERFORMED BY: [facility]leneHenry [facility] Hospital[address] [facility] [id number] Immature granulocytes (Bld) [#/Vol] 0.0 10*3/uL Normal 0.0-0.1 [facility]; [facility] Work Phone: Comment on above: PATIENT WAS FASTINGP ERFORMED BY: [facility] Dugyjr[address] [facility] [id number] Immature granulocytes/100 WBC (Bld) 0 % Normal [facility]; [facility] Work Phone: Comment on above: PATIENT WAS FASTINGP ERFORMED BY: [facility] Bryplh1843 [address] RoadDublin [place] [id number] Lymphocytes (Bld) [#/Vol] 2.2 10*3/uL Normal 0.7-3.1 [facility]; [facility] Work Phone: Comment on above: PATIENT WAS FASTINGP ERFORMED BY: LabHenry [facility]6370 [address] RoadDublin [place] [id number] Lymphocytes/100 WBC (Bld) 34 % Normal [facility]; [facility] Work Phone: Comment on above: PATIENT WAS FASTINGP ERFORMED BY: LabHenry [facility]Dublin [place] [id number] MCH (RBC) [Entitic mass] 31.8 pg Normal 26.6-33.0 [facility]; [facility] Work Phone: Comment on above: PATIENT WAS FASTINGP ERFORMED BY: [facility]6[address] RoadAtrium Health Carol[facility] Rehabilitation Charlottein [place] [id number] MCHC (RBC) [Mass/Vol] 32.6 g/dL Normal 31.5-35.7 [facility] prehensive Internal Medicine; [facility] Work Phone: Comment on above: PATIENT WAS FASTINGP ERFORMED BY: LabHenry [facility]6[address] Roadblin [place] [id number] MCV (RBC) [Entitic vol] 97 fL Normal 79-97 C omprehensive [facility]; [facility] Work Phone: Comment on above: PATIENT WAS FASTINGP ERFORMED BY: LabHenry [facility]6[address] RoadDublin [place] [id number] Monocytes (Bld) [#/Vol] 0.4 10*3/uL Normal 0.1-0.9 [facility]; [facility] Work Phone: Comment on above: PATIENT WAS FASTINGP ERFORMED BY: LabHenry [facility] Hospital6[address] RoadDublin [place] [id number] Monocytes/100 WBC (Bld) 6 % Normal C omprehens[facility]; [facility] Work Phone: Comment on above: PATIENT WAS FASTINGP ERFORMED BY: ANCELMO [facility] Jnmboy0131 [address] RoadDublin [place] [id number] Neutrophils (Bld) [#/Vol] 3.6 10*3/uL Normal 1.4-7.0 [facility]; [facility] Work Phone: Comment on above: PATIENT WAS FASTINGP ERFORMED BY: CB [facility] Pgebqg3072 [address] RoadDublin [place] [id number] Neutrophils/100 WBC (Bld) 56 % Normal [facility]; [facility] Work Phone: Comment on above: PATIENT WAS FASTINGP ERFORMED BY: ANCELMO [facility] Sfzaze9711 [address] RoadDublin [place] [id number] Platelets (Bld) [#/Vol] 378 10*3/uL Normal 150-450 [facility]; [facility] Work Phone: Comment on above: PATIENT WAS FASTINGP ERFORMED BY: ANCELMO [facility] Ofmocz8179 [address] RoadDublin [place] [id number] RBC (Bld) [#/Vol] 3.84 10*6/uL Normal 3.77-5.28 [facility]ensive [facility]; [facility] Work Phone: Comment on above: PATIENT WAS FASTINGP ERFORMED BY: ANCELMO [facility] Jfqldc4344 [address] RoadDublin [place] [id number] WBC (Bld) [#/Vol] 6.5 10*3/uL Normal 3.4-10.8 [facility]; [facility] Work Phone: Comment on above: PATIENT WAS FASTINGP ERFORMED BY: CB [facility] Dlwltr6123 [address] RoadDublin [place] [id number] LIPID PANEL ([id number])Ordered B y: [employer] Machine Setup Operator on 07-30-2021 Cholesterol [Mass/Vol] 155 mg/dL Normal 100-199 Co caronde[facility] healthensive [facility]; [facility] Work Phone: Comment on above: PATIENT WAS FASTINGP ERFORMED BY: CB [facility] Sdnqgq9783 [address] RoadDublin [place] [id number] Cholesterol in HDL [Mass/Vol] 38 mg/dL Abnormal [facility]; [facility] Work Phone: Comment on above: PATIENT WAS FASTINGP ERFORMED BY: ANCELMO Labeliane BirminghamIoyfqb4427 [address] RoadDublin [place] [id number] Triglyceride [Mass/Vol] 121 mg/dL Normal 0-149 C omprehensive [facility]; [facility] Work Phone: Comment on above: PATIENT WAS FASTINGP ERFORMED BY: ANCELMO [facility] Tngumo5274 [address] RoadRanchester [place] [id number] LIPID PANEL (73939) 22 mg/dL Normal 5-40 Compr ensive [facility]; [facility] Work Phone: Comment on above: PATIENT WAS FASTINGP ERFORMED BY: ANCELMO Labcosharon Vjanbb2639 [address] RoadDublin [place] [id number] LIPID PANEL (65725) 95 mg/dL Normal 0-99 Compr ensive [facility]; [facility] Work Phone: Comment on above: PATIENT WAS FASTINGP ERFORMED BY: ANCELMO Labcosharon Sdifdr[address] [facility]in [place] [id number] LIPID PANEL (79870) 2.5 {ratio} Normal 0.0-3.2 Comp [facility]ensive [facility]; [facility] Work Phone: Comment on above: LDL/HDL Ratio Men Wo men 1/2 Avg.Risk 1.0 1.5 Avg.Risk 3.6 3.2 2X Avg.Risk 6.2 5.0 3X Avg.Risk 8.0 6.1 PATIENT WAS FASTINGP ERFORMED BY: ANCELMO [facility] Zgogtf0938 [address] City Hospitalblin [place] [id number] METABOLIC PANEL, COMPREHENSI VE ([id number])Ordered By: [employer] Machine Setup Operator on 07-30-2021 Albumin [Mass/Vol] 4.1 g/dL Normal 3.8-4.8 [facility]; [facility] Work Phone: Comment on above: PATIENT WAS FASTINGP ERFORMED BY: ANCELMO [facility] Pkvkim[address] [facility] [id number] Albumin/Globulin [Mass ratio] 2.0 {ratio} Normal 1.2-2.2 [facility]; [facility] Work Phone: Comment on above: PATIENT WAS FASTINGP ERFORMED BY: ANCELMO Hickman6[address] RoadDublin [place] [id number] ALP [Catalytic activity/Vol] 95 U/L Normal 44-121 [facility]; [facility] Work Phone: Comment on above: PATIENT WAS FASTINGP ERFORMED BY: [facility] Deqsyd7189 [address] RoadDublin [place] [id number] ALT [Catalytic activity/Vol] 13 U/L Normal 0-32 [facility]; [facility] Work Phone: Comment on above: PATIENT WAS FASTINGP ERFORMED BY: Lab[facility] Iqscpy4539 [address] RoadDublin [place] [id number] AST [Catalytic activity/Vol] 15 U/L Normal 0-40 [facility]; [facility] Work Phone: Comment on above: PATIENT WAS FASTINGP ERFORMED BY: Lab[facility] Zehmwv7051 [address] RoadDublin [place] [id number] Bilirubin [Mass/Vol] 0.2 mg/dL Normal 0.0-1.2 [facility]; [facility] Work Phone: Comment on above: PATIENT WAS FASTINGP ERFORMED BY: [facility] Rfbwjj3522 [address] RoadDublin [place] [id number] Calcium [Mass/Vol] 9.3 mg/dL Normal 8.7-10.3 [facility]; [facility] Work Phone: Comment on above: PATIENT WAS FASTINGP ERFORMED BY: [facility] Hhohel7204 [address] RoadDublin [place] [id number] Chloride [Moles/Vol] 104 mmol/L Normal 96-106 [facility]; [facility] Work Phone: Comment on above: PATIENT WAS FASTINGP ERFORMED BY: Lab[facility] Dtbhzm4794 [address] RoadDublin [place] [id number] CO2 [Moles/Vol] 21 mmol/L Normal 20-29 Comprehen sive Internal Medicine; [facility] Work Phone: Comment on above: PATIENT WAS FASTINGP ERFORMED BY: ANCELMO [facility] Bnaicy3583 [facility] Centerin [place] [id number] Creatinine [Mass/Vol] 1.02 mg/dL Abnormal 0.57-1.00 Com prehensive Internal Medicine; [facility] Work Phone: Comment on above: PATIENT WAS FASTINGP ERFORMED BY: [facility] Qviugn0628 [facility] [id number] GFR/1.73 sq M.predicted among non-blacks MDRD (S/P/Bld) [Vol rate/Area] 60 mL/min/{1.73_m2} Normal Comprehensiv e Internal Medicine; [facility] Work Phone: Comment on above: PATIENT WAS FASTINGP ERFORMED BY: [facility] Szjkbs5655 [facility] [id number] Globulin (S) [Mass/Vol] 2.1 g/dL Normal 1.5-4.5 C omprehensive [facility]; [facility] Work Phone: Comment on above: PATIENT WAS FASTINGP ERFORMED BY: [facility] Vzyjrb6444 [facility]in [place] [id number] Glucose [Mass/Vol] 90 mg/dL Normal 65-99 [facility]; [facility] Work Phone: Comment on above: PATIENT WAS FASTINGP ERFORMED BY: [facility] Witbuu3609 [facility]in [place] [id number] Potassium [Moles/Vol] 4.7 mmol/L Normal 3.5-5.2 [facility] prehensive Internal Medicine; [facility] Work Phone: Comment on above: PATIENT WAS FASTINGP ERFORMED BY: [facility] Iprgov4968 [facility]in [place] [id number] Protein [Mass/Vol] 6.2 g/dL Normal 6.0-8.5 [facility] hensive [facility]; [facility] Work Phone: Comment on above: PATIENT WAS FASTINGP ERFORMED BY: [facility] Nnvxaw[address] [facility]in [place] [id number] Sodium [Moles/Vol] 140 mmol/L Normal 134-144 Compre [facility]ive [facility]; [facility] Work Phone: Comment on above: PATIENT WAS FASTINGP ERFORMED BY: CB [facility] Aaryyy9606 [address] RoadAtrium Health Carol[facility] Rehabilitation Charlottein [place] [id number] Urea nitrogen [Mass/Vol] 14 mg/dL Normal 8-27 [facility]; [facility] Work Phone: Comment on above: PATIENT WAS FASTINGP ERFORMED BY: [facility] Oiyhyi[address] [facility] [place] [id number] Urea nitrogen/Creatinine [Mass ratio] 14 mg/mg Normal 12-28 [facility]; [facility] Work Phone: Comment on above: PATIENT WAS FASTINGP ERFORMED BY: [facility] Rtqffi7237 [facility] [id number] METABOLIC PANEL, COMPREHENSIVE ([id number]) 60 mL/min/1.73 Normal Comprehens daniel [facility]; [facility] Work Phone: TSH (THYROID STIMULATING HOR BENJI) ([id number])Ordered By: Rotor Casting Machine Setup Operator on 07-30-2021 TSH Qn 1.040 {uIU/mL} Normal 0.450-4.50 0 [facility]; [facility] Work Phone: Comment on above: PATIENT WAS FASTINGP ERFORMED BY: [facility] Xdmraa[address] [facility] [id number] HgA1C , Office ([phone])Ordere d By: Viviana Strickland on 04-10-2021 HbA1c (Bld) [Mass fraction] 5.7 % Normal 4.6 - 7.1 [facility]; [facility] Work Phone: Blood Glucose , Office ([phone])Ordered By: Inez Sheldon on 01-08-2021 Glucose Glucometer (BldC) [Moles/Vol] 121 1 Normal [facility]; [facility] Work Phone: HgA1C , Office ([phone])Ordere d By: Marti Reid on 01-08-2021 HbA1c (Bld) [Mass fraction] 5.7 % Normal 4.6 - 7.1 [facility]; [facility] Work Phone: CBC W/AUTO DIFF WBC ([id number])O rdered By: R[employer] Machine Setup Operator on 01-05-2021 Basophils (Bld) [#/Vol] 0.1 10*3/uL Normal 0.0-0.2 [facility]; [facility] Work Phone: Comment on above: PATIENT WAS FASTINGP ERFORMED BY: CB [facility] Dknlka2425 [address] RoadDublin [place] [id number] Basophils/100 WBC (Bld) 1 % Normal C omprehensive [facility] Medicine; [facility] Work Phone: Comment on above: PATIENT WAS FASTINGP ERFORMED BY: CB [facility] Krazdp0811 [address] RoadDublin [place] [id number] Eosinophils (Bld) [#/Vol] 0.2 10*3/uL Normal 0.0-0.4 [facility]; [facility] Work Phone: Comment on above: PATIENT WAS FASTINGP ERFORMED BY: CB [facility] Xakzfv3258 [address] RoadDublin [place] [id number] Eosinophils/100 WBC (Bld) 2 % Normal [facility]; [facility] Work Phone: Comment on above: PATIENT WAS FASTINGP ERFORMED BY: CB [facility] Zygbkq0482 [address] RoadDublin [place] [id number] Erythrocyte distribution width (RBC) [Ratio] 13.4 % Normal 11.7-15.4 [facility]; [facility] Work Phone: Comment on above: PATIENT WAS FASTINGP ERFORMED BY: CB [facility] Awehbo3063 [address] RoadDublin [place] [id number] Hematocrit (Bld) [Volume fraction] 37.7 % Normal 34.0-46.6 [facility]; [facility] Work Phone: Comment on above: PATIENT WAS FASTINGP ERFORMED BY: [facility] Avowon2759 [address] RoadDublin [place] [id number] Hemoglobin (Bld) [Mass/Vol] 12.6 g/dL Normal 11.1-15.9 [facility]; [facility] Work Phone: Comment on above: PATIENT WAS FASTINGP ERFORMED BY: [facility] Szphvl0436 [address] RoadDublin [place] [id number] Immature granulocytes (Bld) [#/Vol] 0.0 10*3/uL Normal 0.0-0.1 [facility]; [facility] Work Phone: Comment on above: PATIENT WAS FASTINGP ERFORMED BY: [facility] Ckuadp3473 [address] RoadDublin [place] [id number] Immature granulocytes/100 WBC (Bld) 0 % Normal [facility]; [facility] Work Phone: Comment on above: PATIENT WAS FASTINGP ERFORMED BY: Lab[facility]6[address]Dublin [place] [id number] Lymphocytes (Bld) [#/Vol] 2.4 10*3/uL Normal 0.7-3.1 [facility]; [facility] Work Phone: Comment on above: PATIENT WAS FASTINGP ERFORMED BY: LabHenry [facility]6[address]Dublin [place] [id number] Lymphocytes/100 WBC (Bld) 32 % Normal [facility]; [facility] Work Phone: Comment on above: PATIENT WAS FASTINGP ERFORMED BY: [facility] Xxjpsj6218 [address] RoadDublin [place] [id number] MCH (RBC) [Entitic mass] 32.6 pg Normal 26.6-33.0 [facility]; [facility] Work Phone: Comment on above: PATIENT WAS FASTINGP ERFORMED BY: [facility] Mcczek6395 [address] RoadDublin [place] [id number] MCHC (RBC) [Mass/Vol] 33.4 g/dL Normal 31.5-35.7 [facility] prehensive Internal Medicine; [facility] Work Phone: Comment on above: PATIENT WAS FASTINGP ERFORMED BY: CB [facility] Wgjdod2310 Gilman RoadDublin [place] [id number] MCV (RBC) [Entitic vol] 98 fL Abnormal 79-97 [facility]; [facility] Work Phone: Comment on above: PATIENT WAS FASTINGP ERFORMED BY: CB [facility] Smdjte3133 Gilman RoadDublin [place] [id number] Monocytes (Bld) [#/Vol] 0.5 10*3/uL Normal 0.1-0.9 [facility]; [facility] Work Phone: Comment on above: PATIENT WAS FASTINGP ERFORMED BY: CB [facility] Ghrtfa5785 Gilman RoadDublin [place] [id number] Monocytes/100 WBC (Bld) 6 % Normal [facility]; [facility] Work Phone: Comment on above: PATIENT WAS FASTINGP ERFORMED BY: CB [facility] Ukzmfc9477 Gil[address] RoadDublin [place] [id number] Neutrophils (Bld) [#/Vol] 4.5 10*3/uL Normal 1.4-7.0 [facility] Internal Medicine; [facility] Work Phone: Comment on above: PATIENT WAS FASTINGP ERFORMED BY: CB [facility] Nbawqs1043 [address] RoadDublin [place] [id number] Neutrophils/100 WBC (Bld) 59 % Normal [facility]; [facility] Work Phone: Comment on above: PATIENT WAS FASTINGP ERFORMED BY: CB [facility] Moqjgf7757 [address] RoadDublin [place] [id number] Platelets (Bld) [#/Vol] 379 10*3/uL Normal 150-450 [facility]; [facility] Work Phone: Comment on above: PATIENT WAS FASTINGP ERFORMED BY: CB [facility] Dkfchr0447 [address] RoadDublin [place] [id number] RBC (Bld) [#/Vol] 3.86 10*6/uL Normal 3.77-5.28 [facility]; [facility] Work Phone: Comment on above: PATIENT WAS FASTINGP ERFORMED BY: ANCELMO Santa Hickman[address] RoadDublin [place] [id number] WBC (Bld) [#/Vol] 7.6 10*3/uL Normal 3.4-10.8 [facility]; [facility] Work Phone: Comment on above: PATIENT WAS FASTINGP ERFORMED BY: ANCELMO Labcosharon Sbhxjo0569 Gil[address] RoadDublin [place] [id number] LIPID PANEL (51558)Ordered B y: [employer] Machine Setup Operator on 01-05-2021 Cholesterol [Mass/Vol] 170 mg/dL Normal 100-199 [facility] healthensive [facility]; [facility] Work Phone: Comment on above: PATIENT WAS FASTINGP ERFORMED BY: ANCELMO Arleneeliane BirminghamGwaund[address] [facility] [place] [id number] Cholesterol in HDL [Mass/Vol] 41 mg/dL Normal [facility]; [facility] Work Phone: Comment on above: PATIENT WAS FASTINGP ERFORMED BY: ANCELMO Arleneeliane BirminghamHstrqx6379 [address] [facility] Hospitalblin [place] [id number] Triglyceride [Mass/Vol] 135 mg/dL Normal 0-149 [facility]; [facility] Work Phone: Comment on above: PATIENT WAS FASTINGP ERFORMED BY: ANCELMO Labcarlossharon Buiwet8550 [address] [facility] Hospitalblin [place] [id number] LIPID PANEL (62708) 24 mg/dL Normal 5-40 Compr ensive Internal Medicine; [facility] Work Phone: Comment on above: PATIENT WAS FASTINGP ERFORMED BY: ANCELMO Labeliane Thohmr7199 [address] [facility] HospitalD[facility] [place] [id number] LIPID PANEL (67534) 105 mg/dL Abnormal 0-99 Compr ensive Internal Medicine; [facility] Work Phone: Comment on above: PATIENT WAS FASTINGP ERFORMED BY: ANCELMO Labeliane Hyaszz3557 [address] [facility] Hospitalblin [place] [id number] LIPID PANEL (24831) 2.6 {ratio} Normal 0.0-3.2 [facility] Internal Medicine; [facility] Work Phone: Comment on above: LDL/HDL Ratio Men Wo men 1/2 Avg.Risk 1.0 1.5 Avg.Risk 3.6 3.2 2X Avg.Risk 6.2 5.0 3X Avg.Risk 8.0 6.1 PATIENT WAS FASTINGP ERFORMED BY: [facility] Mnyhgb1619 [address] [facility] Hospitalblin [place] [id number] METABOLIC PANEL, COMPREHENSI VE (38261)Ordered By: [employer] Machine Setup Operator on 01-05-2021 Albumin [Mass/Vol] 4.3 g/dL Normal 3.8-4.8 [facility] Internal Medicine; [facility] Work Phone: Comment on above: PATIENT WAS FASTINGP ERFORMED BY: [facility] Daddvy[address]28 [address] [facility]in [place] [id number] Albumin/Globulin [Mass ratio] 2.0 {ratio} Normal 1.2-2.2 [facility]; [facility] Work Phone: Comment on above: PATIENT WAS FASTINGP ERFORMED BY: [facility] Kobqju1130 [address] [facility]in [place] [id number] ALP [Catalytic activity/Vol] 89 U/L Normal 44-121 [facility]; [facility] Work Phone: Comment on above: Please note refere nce interval change PATIENT WAS FASTINGP ERFORMED BY: [facility] Ygptzd4874 [address] [facility] Hospitalblin [place] [id number] ALT [Catalytic activity/Vol] 17 U/L Normal 0-32 [facility]; [facility] Work Phone: Comment on above: PATIENT WAS FASTINGP ERFORMED BY: [facility] Njgxeh8644 [address] [facility] Hospitalblin [place] [id number] AST [Catalytic activity/Vol] 18 U/L Normal 0-40 [facility]; [facility] Work Phone: Comment on above: PATIENT WAS FASTINGP ERFORMED BY: ANCELMO Hickman[address] [facility]in [place] [id number] Bilirubin [Mass/Vol] 0.2 mg/dL Normal 0.0-1.2 Comp rehensive Internal Medicine; [facility] Work Phone: Comment on above: PATIENT WAS FASTINGP ERFORMED BY: ANCELMO Hickman6370 [facility] [id number] Calcium [Mass/Vol] 9.2 mg/dL Normal 8.7-10.3 [facility] Internal [facility]; [facility] Work Phone: Comment on above: PATIENT WAS FASTINGP ERFORMED BY: ANCELMO Hickman6370 [facility] [id number] Chloride [Moles/Vol] 106 mmol/L Normal 96-106 Comp rehensive Internal Medicine; [facility] Work Phone: Comment on above: PATIENT WAS FASTINGP ERFORMED BY: ANCELMO Birminghamlin6370 [facility] [id number] CO2 [Moles/Vol] 21 mmol/L Normal 20-29 [facility] Internal [facility]; [facility] Work Phone: Comment on above: PATIENT WAS FASTINGP ERFORMED BY: ANCELMO Hickman6370 [facility] [id number] Creatinine [Mass/Vol] 0.84 mg/dL Normal 0.57-1.00 [facility] prehensive Internal Medicine; [facility] Work Phone: Comment on above: PATIENT WAS FASTINGP ERFORMED BY: ANCELMO Manzo Tgerhv7972 [facility] [id number] GFR/1.73 sq M.predicted among blacks CKD-EPI (S/P/Bld) [Vol rate/Area] 83 mL/min/1.73 Normal [facility]; [facility] Work Phone: Comment on above: In accordance with recommendations from the NKF-ASN Task force, [facility] is in the process of updating its eGFR calculation to the 2021 CKD-EPI creatinine equation that estimates kidney function without a race variable. PATIENT WAS FASTINGP ERFORMED BY: [facility] Lpqkof5916 Gil[address] RoadDublin [place] [id number] GFR/1.73 sq M.predicted among non-blacks CKD-EPI (S/P/Bld) [Vol rate/Area] 72 mL/min/1.73 Normal [facility]; [facility] Work Phone: Comment on above: PATIENT WAS FASTINGP ERFORMED BY: [facility] Usscdd6841 Gil[address] RoadDublin [place] [id number] Globulin (S) [Mass/Vol] 2.1 g/dL Normal 1.5-4.5 [facility]; [facility] Work Phone: Comment on above: PATIENT WAS FASTINGP ERFORMED BY: [facility] Yocnld3188 Gil[address] RoadDublin [place] [id number] Glucose [Mass/Vol] 85 mg/dL Normal 65-99 [facility] Internal Medicine; [facility] Work Phone: Comment on above: PATIENT WAS FASTINGP ERFORMED BY: [facility] Jrupts4753 [address] RoadDublin [place] [id number] Potassium [Moles/Vol] 4.5 mmol/L Normal 3.5-5.2 [facility]; [facility] Work Phone: Comment on above: PATIENT WAS FASTINGP ERFORMED BY: [facility] Scgtxh9747 Gil[address] RoadDublin [place] [id number] Protein [Mass/Vol] 6.4 g/dL Normal 6.0-8.5 [facility] Internal Medicine; [facility] Work Phone: Comment on above: PATIENT WAS FASTINGP ERFORMED BY: [facility] Vmjgoi5348 Gil[address] RoadDublin [place] [id number] Sodium [Moles/Vol] 142 mmol/L Normal 134-144 [facility] Internal Medicine; [facility] Work Phone: Comment on above: PATIENT WAS FASTINGP ERFORMED BY: [facility] Wdccbd0956 Gil[address] RoadDublin [place] [id number] Urea nitrogen [Mass/Vol] 10 mg/dL Normal 8-27 [facility]; [facility] Work Phone: Comment on above: PATIENT WAS FASTINGP ERFORMED BY: ANCELMO Labeliane Hickman[address] [facility]in [place] [id number] Urea nitrogen/Creatinine [Mass ratio] 12 mg/mg Normal 12-28 [facility]; [facility] Work Phone: Comment on above: PATIENT WAS FASTINGP ERFORMED BY: ANCELMO [facility] Sqaamk2152 [address] [facility]in [place] [id number] MICROALBUMINOrdered By: [employer] em Operating Systems Programmer on 01-05-2021 Albumin DL <= 20 mg/L (U) [Mass/Vol] 4.8 ug/mL Normal [facility]; [facility] Work Phone: Comment on above: PATIENT WAS FASTINGP ERFORMED BY: ANCELMO [facility] Pruokw6093 [address] [facility] [id number] Albumin/Creatinine (U) [Mass ratio] 12 {mg/g_creat} Normal 0-29 [facility]; [facility] Work Phone: Comment on above: Normal: 0 - 29 Moder ately increased: 30 - 300 Severely increased: >300 PATIENT WAS FASTINGP ERFORMED BY: ANCELMO [facility] Sdwoef2594 [facility] [id number] Creatinine (U) [Mass/Vol] 41.2 mg/dL Normal [facility]; [facility] Work Phone: Comment on above: PATIENT WAS FASTINGP ERFORMED BY: ANCELMO [facility] Ndeqko0775 [address] [facility] [id number] TSH (26044)Ordered By: [employer] m Operating Systems Programmer on 01-05-2021 TSH Qn 1.800 {uIU/mL} Normal 0.450-4.50 0 [facility]; [facility] Work Phone: Comment on above: PATIENT WAS FASTINGP ERFORMED BY: ANCELMO [facility] Ronujd3837 [facility] [id number] URINALYSIS, W/ MICRO (20492) Ordered By: [employer]otor Casting Machine Setup Operator on 01-05-2021 Appearance (U) Clear Normal Comprehens daniel Internal Medicine; [facility] Work Phone: Comment on above: PATIENT WAS FASTINGP ERFORMED BY: ANCELMO Hickman6370 [facility] [id number] Bilirubin Ql (U) Negative Normal Comprehe nsive Internal Medicine; [facility] Work Phone: Comment on above: PATIENT WAS FASTINGP ERFORMED BY: ANCELMO Hickman6370 [facility] [id number] Color (U) Yellow Normal [facility]; [facility] Work Phone: Comment on above: PATIENT WAS FASTINGP ERFORMED BY: ANCELMO Hickman6370 [facility] [id number] Glucose Ql (U) Negative Normal Comprehens daniel Internal Medicine; [facility] Work Phone: Comment on above: PATIENT WAS FASTINGP ERFORMED BY: ANCELMO Hickman6370 [facility] [id number] Hemoglobin Ql (U) Negative Normal Compreh ensive Internal Medicine; [facility] Work Phone: Comment on above: PATIENT WAS FASTINGP ERFORMED BY: ANCELMO Birminghamlin6370 [facility] [id number] Ketones Ql (U) Negative Normal Comprehens daniel Internal Medicine; [facility] Work Phone: Comment on above: PATIENT WAS FASTINGP ERFORMED BY: ANCELMO Birminghamlin6370 [facility] [id number] Leukocyte esterase Test strip Ql (U) 1+ Abnormal [facility]; [facility] Work Phone: Comment on above: PATIENT WAS FASTINGP ERFORMED BY: ANCELMO Birminghamlin6370 [facility] [id number] Microscopic observation LM Nom (Urine sed) See below: Normal [facility]; [facility] Work Phone: Comment on above: Microscopic was noel cated and was performed. PATIENT WAS FASTINGP ERFORMED BY: ANCELMO Jacobsco Xdodwp4131 Gil[address] Roadblin [place] [id number] Nitrite Ql (U) Negative Normal Comprehens daniel Internal Medicine; [facility] Work Phone: Comment on above: PATIENT WAS FASTINGP ERFORMED BY: [facility] Sfmphv4979 Gil[address] Roadblin [place] [id number] pH (U) 5.5 [pH] Normal 5.0-7.5 [facility]; [facility] Work Phone: Comment on above: PATIENT WAS FASTINGP ERFORMED BY: [facility] Osfpzu1782 [address] RoadDublin [place] [id number] Protein Ql (U) Negative Normal Comprehens daniel Internal Medicine; [facility] Work Phone: Comment on above: PATIENT WAS FASTINGP ERFORMED BY: [facility] Gmcizf9119 [facility] [id number] Specific gravity (U) [Rel density] 1.009 1 Normal 1.005-1.03 0 [facility]; [facility] Work Phone: Comment on above: PATIENT WAS FASTINGP ERFORMED BY: [facility] Aazmsh6708 [address] [facility]in [place] [id number] Urobilinogen (U) [Mass/Vol] 0.2 mg/dL Normal 0.2-1.0 [facility]; [facility] Work Phone: Comment on above: PATIENT WAS FASTINGP ERFORMED BY: [facility] Jxnvat2567 [facility] [id number] Blood Glucose , Office ([phone])Ordered By: Viviana Strickland on 09-08-2020 Glucose Glucometer (BldC) [Moles/Vol] 105 1 Normal [facility]; [facility] Work Phone: HgA1C , Office ([phone])Ordere d By: Viviana Strickland on 09-08-2020 HbA1c (Bld) [Mass fraction] 5.9 % Normal 4.6 - 7.1 [facility]; [facility] Work Phone: CBC with auto diff (82098)Or dered By: [employer] Cast[employer] Machine Setup Operator on 05-22-2020 Basophils (Bld) [#/Vol] 0.1 10*3/uL Normal 0.0-0.2 [facility]; [facility] Work Phone: Comment on above: Test(s) 503740-WNT-N ; 055992-TYT-Q; 919611-Ceqycqikwikcw; 820450-Tyyndfaxiby, Total; 921757-DCY-W (Total); 915543-Ajdaf LDL-P; 986411-ZEU Size; 722758-EB-XO Scorewas developed and its performance characteristics determinedby [employer]. It has not been cleared or approved by the Foodand Drug Administration.PATIENT WAS FASTINGPERFORMED BY: MOMENTFACE SRO[address] [id number] BY: Sigasi70 ConfortVisuelLifeCare Hospitals of North Carolina [id number] Basophils/100 WBC (Bld) 1 % Normal C ompkettering health springfieldensive Internal Medicine; [facility] Work Phone: Comment on above: Test(s) 414159-IJU-B ; 746268-DLC-K; 622597-Cttlrkpkfumlx; 181527-Xwntrkkxhfq, Total; 419080-TMB-B (Total); 616753-Xuepa LDL-P; 496076-OWW Size; 442136-SI-LK Scorewas developed and its performance characteristics determinedby [employer]. It has not been cleared or approved by the Foodand Drug Administration.PATIENT WAS FASTINGPERFORMED BY: autoGraph [address] [id number] BY: [email or web address] KymabHighlands-Cashiers Hospital [id number] Eosinophils (Bld) [#/Vol] 0.2 10*3/uL Normal 0.0-0.4 [facility]; [facility] Work Phone: Comment on above: Test(s) 762943-WBH-N ; 926905-OOJ-Y; 634803-Pjaydtqflriwr; 430461-Hzarohhdsnq, Total; 061296-CKK-B (Total); 865600-Yiwak LDL-P; 660810-PEM Size; 943240-FF-BM Scorewas developed and its performance characteristics determinedby [employer]. It has not been cleared or approved by the Foodand Drug Administration.PATIENT WAS FASTINGPERFORMED BY: Declara[address] [id number] BY: SonicsNew Mexico Behavioral Health Institute at Las VegasCeynbw5295 GilmanHarry [facility] [id number] Eosinophils/100 WBC (Bld) 2 % Normal [facility]; [facility] Work Phone: Comment on above: Test(s) 919529-GIY-B ; 159788-YUL-X; 913846-Pamhezitpcxri; 729843-Ahhnkjygtpo, Total; 400863-JYD-R (Total); 930637-Cqjjs LDL-P; 492142-AGO Size; 930777-XZ-ZJ Scorewas developed and its performance characteristics determinedby [employer]. It has not been cleared or approved by the Foodand Drug Administration.PATIENT WAS FASTINGPERFORMED BY: autoGraph [address] [id number] BY: Sigasi70 ConfortVisuelLifeCare Hospitals of North [place] [id number] Erythrocyte distribution width (RBC) [Ratio] 14.1 % Normal 11.7-15.4 [facility] Internal Medicine; [facility] Work Phone: Comment on above: Test(s) 854736-RPJ-T ; 882097-XRJ-W; 469920-Onfwkliiiueub; 714954-Hudbuazmtce, Total; 306819-CCO-P (Total); 668375-Dzaqx LDL-P; 840307-XLO Size; 551013-EF-JD Scorewas developed and its performance characteristics determinedby [employer]. It has not been cleared or approved by the Foodand Drug Administration.PATIENT WAS FASTINGPERFORMED BY: autoGraph [address] [id number] BY: [employer] Hcbzau0369 [address] KymabHighlands-Cashiers Hospital [id number] Hematocrit (Bld) [Volume fraction] 38.4 % Normal 34.0-46.6 [facility]; [facility] Work Phone: Comment on above: Test(s) 126346-LBJ-I ; 662747-BJB-Q; 088271-Soqwfdlqchjqz; 079926-Ufrrfkjywim, Total; 476426-HGW-Z (Total); 667803-Vlqhs LDL-P; 235315-IIH Size; 118391-CZ-ZR Scorewas developed and its performance characteristics determinedby [employer]. It has not been cleared or approved by the Foodand Drug Administration.PATIENT WAS FASTINGPERFORMED BY: autoGraph [address] [id number] BY: Sigasi70 [address] KymabHighlands-Cashiers Hospital [id number] Hemoglobin (Bld) [Mass/Vol] 12.8 g/dL Normal 11.1-15.9 [facility]; [facility] Internal Medicine Work Phone: Comment on above: Test(s) 726624-KMP-E ; 382192-YBP-I; 741202-Phbszvlrjphwr; 707440-Pdxrnnbdjnm, Total; 650463-GGU-W (Total); 138642-Mlszi LDL-P; 498316-ABG Size; 677482-UB-FJ Scorewas developed and its performance characteristics determinedby [employer]. It has not been cleared or approved by the FoodCloudPassage Drug Administration.PATIENT WAS FASTINGPERFORMED BY: autoGraph [address] [id number] BY: [email or web address] [facility] [id number] Immature granulocytes (Bld) [#/Vol] 0.0 10*3/uL Normal 0.0-0.1 [facility]; [facility] Work Phone: Comment on above: Test(s) 940629-CSL-I ; 384760-IPW-M; 343623-Rmzrzlglordzg; 443072-Egyrcheubje, Total; 801922-SPK-Q (Total); 759773-Aalgh LDL-P; 845603-KHZ Size; 543021-TV-VM Scorewas developed and its performance characteristics determinedby [employer]. It has not been cleared or approved by the Foodand Drug Administration.PATIENT WAS FASTINGPERFORMED BY: autoGraph [address] [id number] BY: SonicsNew Mexico Behavioral Health Institute at Las VegasAtprjr4836 [facility] [id number] Immature granulocytes/100 WBC (Bld) 0 % Normal [facility]; [facility] Work Phone: Comment on above: Test(s) 378489-QRB-Z ; 434209-AEE-K; 012974-Aosfnmkkaiqqb; 036937-Qbckaugiqdv, Total; 161872-BCW-Y (Total); 301517-Kuiuz LDL-P; 688462-SMC Size; 217122-HZ-AW Scorewas developed and its performance characteristics determinedby [employer]. It has not been cleared or approved by the Foodand Drug Administration.PATIENT WAS FASTINGPERFORMED BY: autoGraph [address] [id number] BY: [employer] Nqsdcl2489 [facility] [id number] Lymphocytes (Bld) [#/Vol] 2.2 10*3/uL Normal 0.7-3.1 [facility]; [facility] Work Phone: Comment on above: Test(s) 886260-VGD-N ; 161933-BCT-O; 503858-Smyqogwybogzz; 909207-Wwhqkcukubh, Total; 614456-VUZ-F (Total); 990519-Jbljy LDL-P; 733993-ONE Size; 665933-YH-EI Scorewas developed and its performance characteristics determinedby [employer]. It has not been cleared or approved by the Foodand Drug Administration.PATIENT WAS FASTINGPERFORMED BY: autoGraph [address] [id number] BY: [employer] Software TechnologiesLourdes Medical Center of Burlington CountyHfnlfv1846 [facility] [id number] Lymphocytes/100 WBC (Bld) 34 % Normal [facility]; [facility] Work Phone: Comment on above: Test(s) 952510-YWY-L ; 434100-QVZ-Z; 698752-Ypcvlwvmxifff; 704449-Tszkmljjmzm, Total; 263574-YZZ-P (Total); 036402-Eecmy LDL-P; 638676-DGC Size; 046490-UQ-XO Scorewas developed and its performance characteristics determinedby [employer]. It has not been cleared or approved by the Foodand Drug Administration.PATIENT WAS FASTINGPERFORMED BY: autoGraph [address] [id number] BY: SonicsVictor [place]ille 7179570 [facility] [id number] MCH (RBC) [Entitic mass] 32.4 pg Normal 26.6-33.0 [facility] Internal Medicine; [facility] Work Phone: Comment on above: Test(s) 376393-JCT-U ; 605498-JUJ-J; 649127-Qxyjjxjbgaoog; 445853-Sxdkefxvdhj, Total; 942370-QHV-I (Total); 335181-Ofjhj LDL-P; 178294-QRZ Size; 209869-HW-LP Scorewas developed and its performance characteristics determinedby [employer]. It has not been cleared or approved by the Foodand Drug Administration.PATIENT WAS FASTINGPERFORMED BY: Sonics[address] [id number] BY: SonicsLourdes Medical Center of Burlington CountyYzosxk9794 [facility] [id number] MCHC (RBC) [Mass/Vol] 33.3 g/dL Normal 31.5-35.7 [facility]; [facility] Work Phone: Comment on above: Test(s) 464965-NAS-M ; 404967-IZZ-H; 722926-Qazgssnisqpzs; 964147-Lkkvndqllhy, Total; 810985-CDD-Q (Total); 647947-Vzmlp LDL-P; 591707-ZAX Size; 879450-JW-EX Scorewas developed and its performance characteristics determinedby [employer]. It has not been cleared or approved by the Foodand Drug Administration.PATIENT WAS FASTINGPERFORMED BY: autoGraph [address] [id number] BY: [employer] Zhrciv6018 [facility] MastHighlands-Cashiers Hospital [id number] MCV (RBC) [Entitic vol] 97 fL Normal 79-97 C omprehensive Internal Medicine; [facility] Work Phone: Comment on above: Test(s) 614305-PVB-K ; 063196-XDQ-U; 688767-Tyhdvzxbhxoow; 227251-Yxxdhzuzqus, Total; 347665-PSC-Z (Total); 896812-Uwtcp LDL-P; 813017-LUL Size; 939514-IB-WE Scorewas developed and its performance characteristics determinedby [employer]. It has not been cleared or approved by the Foodand Drug Administration.PATIENT WAS FASTINGPERFORMED BY: autoGraph [address] [id number] BY: [email or web address] ConfortVisuelLifeCare Hospitals of North Carolina [id number] Monocytes (Bld) [#/Vol] 0.4 10*3/uL Normal 0.1-0.9 [facility]; [facility] Work Phone: Comment on above: Test(s) 241419-MFQ-O ; 776222-RRX-F; 087253-Wzewzwfjwunwj; 350036-Bziliujfqwe, Total; 479343-YJE-R (Total); 054881-Ggdpp LDL-P; 969636-RWB Size; 145511-BR-HM Scorewas developed and its performance characteristics determinedby [employer]. It has not been cleared or approved by the Foodand Drug Administration.PATIENT WAS FASTINGPERFORMED BY: autoGraph [address] [id number] BY: Shareholder InSitelin6370 [facility] [id number] Monocytes/100 WBC (Bld) 6 % Normal C omprehensive Internal Medicine; [facility] Work Phone: Comment on above: Test(s) 077042-FZJ-E ; 469552-LIW-M; 740492-Cqohzjsmaqdec; 309576-Icxvvkauwcr, Total; 677124-CYQ-F (Total); 817878-Keipk LDL-P; 768856-GOV Size; 802937-IW-YZ Scorewas developed and its performance characteristics determinedby [employer]. It has not been cleared or approved by the Foodand Drug Administration.PATIENT WAS FASTINGPERFORMED BY: autoGraph [address] [id number] BY: Sigasi70 [facility] [id number] Neutrophils (Bld) [#/Vol] 3.7 10*3/uL Normal 1.4-7.0 [facility]; [facility] Work Phone: Comment on above: Test(s) 608596-DNN-U ; 700257-JLH-G; 248067-Aodrczpfznnyn; 737512-Fdrfjavxief, Total; 185363-QER-O (Total); 162926-Slclw LDL-P; 240857-MNW Size; 114833-UY-QW Scorewas developed and its performance characteristics determinedby [employer]. It has not been cleared or approved by the Foodand Drug Administration.PATIENT WAS FASTINGPERFORMED BY: autoGraph [address] [id number] BY: Sigasi70 [place] [facility]High[facility] [id number] Neutrophils/100 WBC (Bld) 57 % Normal [facility]; [facility] Work Phone: Comment on above: Test(s) 224551-CQO-Y ; 939664-KXX-Z; 573524-Otpynyspiqlfh; 322301-Ucvkkszxibv, Total; 393869-AXA-E (Total); 942022-Psrjz LDL-P; 237879-MLT Size; 355449-VT-SH Scorewas developed and its performance characteristics determinedby [employer]. It has not been cleared or approved by the Foodand Drug Administration.PATIENT WAS FASTINGPERFORMED BY: autoGraph [address] [id number] BY: Sigasi70 [facility]HuixiaoerLifeCare [facility] [id number] Platelets (Bld) [#/Vol] 384 10*3/uL Normal 150-450 [facility]; [facility] Work Phone: Comment on above: Test(s) 859041-NKL-M ; 413742-NGA-J; 198816-Gmjnizvguprxb; 911654-Eovwkdvxcho, Total; 019199-KCW-Y (Total); 881581-Fipej LDL-P; 119260-BLR Size; 389610-PT-WQ Scorewas developed and its performance characteristics determinedby [employer]. It has not been cleared or approved by the Foodand Drug Administration.PATIENT WAS FASTINGPERFORMED BY: MOMENTFACE SRO[address] [id number] BY: [email or web address] ConfortVisuelLifeCare Hospitals of [facility] [place] [id number] RBC (Bld) [#/Vol] 3.95 10*6/uL Normal 3.77-5.28 [facility] Internal Medicine; [facility] Work Phone: Comment on above: Test(s) 150355-BKN-D ; 253530-SGH-I; 620780-Bwbneuzpgjocb; 930801-Icsufddmtpm, Total; 773750-TGI-F (Total); 407319-Vwuyo LDL-P; 395857-WHS Size; 905645-GH-VI Scorewas developed and its performance characteristics determinedby [employer]. It has not been cleared or approved by the Foodand Drug Administration.PATIENT WAS FASTINGPERFORMED BY: MOMENTFACE SRO[address] [id number] BY: [employer] Fnnbek3105 [facility] WestHuixiaoerLifeCare Hospitals [facility] [place] [id number] WBC (Bld) [#/Vol] 6.6 10*3/uL Normal 3.4-10.8 [facility] Internal Medicine; [facility] Work Phone: Comment on above: Test(s) 483244-TCK-T ; 375623-NJX-I; 830886-Rbgchjjuifjcu; 996809-Nxxlgcjbsqr, Total; 026575-GUE-V (Total); 780668-Dnwhu LDL-P; 043470-GBB Size; 449575-KT-XV Scorewas developed and its performance characteristics determinedby [employer]. It has not been cleared or approved by the Foodand Drug Administration.PATIENT WAS FASTINGPERFORMED BY: Telera Fkdawzmbbb6094 [facility] [id number] BY: SonicsLourdes Medical Center of Burlington CountyAewbtv0733 [facility] [id number] HGB A1C (53422)Ordered By: S ystem Operating Systems Programmer on 05-22-2020 HbA1c (Bld) [Mass fraction] 5.9 % Abnormal 4.8-5.6 [facility]; [facility] Work Phone: Comment on above: . Prediabetes: 5.7 - 6.4 Diabetes: >6.4 Glycemic control for adults with diabetes: <7.0 Test(s) 338002-PPP-K ; 863271-ANM-Q; 825466-Szxsqfwbhchyz; 959889-Mafgdvdzade, Total; 472181-NZX-Y (Total); 696170-Dxhow LDL-P; 128222-LVE Size; 816812-LN-AK Scorewas developed and its performance characteristics determinedby [employer]. It has not been cleared or approved by the Foodand Drug Administration.PATIENT WAS FASTINGPERFORMED BY: autoGraph Gabnwqtzya2179 [facility] [id number] BY: Telera Bqaaae8536 [facility] [id number] METABOLIC PANEL, COMPREHENSI VE (12844)Ordered By: Rotor Casting Machine Setup Operator on 05-22-2020 Albumin [Mass/Vol] 4.2 g/dL Normal 3.8-4.8 [facility] Internal Medicine; [facility] Work Phone: Comment on above: Test(s) 355256-TKW-U ; 983563-QBD-O; 664887-Xttznxghueuet; 308916-Iipsgfskaui, Total; 330873-CAF-E (Total); 001489-Smzpw LDL-P; 676046-EFV Size; 454451-UV-DS Scorewas developed and its performance characteristics determinedby [employer]. It has not been cleared or approved by the Foodand Drug Administration.PATIENT WAS FASTINGPERFORMED BY: Sonics[address] [id number] BY: SonicsLourdes Medical Center of Burlington CountyZpncak8624 [facility] [id number] Albumin/Globulin [Mass ratio] 1.8 {ratio} Normal 1.2-2.2 [facility]; [facility] Work Phone: Comment on above: Test(s) 149560-IRJ-D ; 938333-FHJ-M; 566470-Psnglazcynkij; 301799-Ncnwdwwoktt, Total; 359633-NJW-A (Total); 331694-Khuaq LDL-P; 397893-LGG Size; 946819-DS-QF Scorewas developed and its performance characteristics determinedby [employer]. It has not been cleared or approved by the Foodand Drug Administration.PATIENT WAS FASTINGPERFORMED BY: autoGraph [address] [id number] BY: [email or web address] [facility] [id number] ALP [Catalytic activity/Vol] 102 U/L Normal 39-117 [facility]; [facility] Work Phone: Comment on above: Test(s) 880001-EIA-I ; 499067-IDA-C; 353150-Dnuhtzjipsdni; 046782-Ntnqiklcyxm, Total; 887727-JKF-A (Total); 770457-Yhovu LDL-P; 049058-OXV Size; 584214-NU-YW Scorewas developed and its performance characteristics determinedby [employer]. It has not been cleared or approved by the Foodand Drug Administration.PATIENT WAS FASTINGPERFORMED BY: Sonics[address] [id number] BY: SonicsLourdes Medical Center of Burlington CountyQfmzcb9128 [facility] [id number] ALT [Catalytic activity/Vol] 20 U/L Normal 0-32 [facility]; [facility] Work Phone: Comment on above: Test(s) 490306-PZO-S ; 737311-KJJ-F; 480472-Agsvmpoyhdeiz; 983501-Xyzpxpaljmo, Total; 351462-QSV-Y (Total); 821032-Gfglb LDL-P; 619058-MBU Size; 339040-LG-QK Scorewas developed and its performance characteristics determinedby [employer]. It has not been cleared or approved by the Foodand Drug Administration.PATIENT WAS FASTINGPERFORMED BY: autoGraph [address] [id number] BY: Sigasi70 [facility] [id number] AST [Catalytic activity/Vol] 23 U/L Normal 0-40 [facility]; [facility] Work Phone: Comment on above: Test(s) 455746-ERW-A ; 092424-JJR-Q; 513108-Innklrpjixjzy; 525197-Ikzyebmyfrn, Total; 923122-HLQ-K (Total); 444280-Nrmyo LDL-P; 028820-EBL Size; 636885-YW-EJ Scorewas developed and its performance characteristics determinedby [employer]. It has not been cleared or approved by the Foodand Drug Administration.PATIENT WAS FASTINGPERFORMED BY: autoGraph [address] [id number] BY: Shareholder InSitelin6370 [facility] [id number] Bilirubin [Mass/Vol] 0.2 mg/dL Normal 0.0-1.2 [facility]; [facility] Work Phone: Comment on above: Test(s) 867233-FXB-A ; 572479-BOX-Z; 295826-Gycmjlrmqswdh; 833259-Mwkcernyakm, Total; 917938-MGN-X (Total); 760717-Yueuv LDL-P; 034660-IHD Size; 678628-ZI-SE Scorewas developed and its performance characteristics determinedby [employer]. It has not been cleared or approved by the Foodand Drug Administration.PATIENT WAS FASTINGPERFORMED BY: autoGraph [address] [id number] BY: [employer] Ljqyyw6726 [facility] [id number] Calcium [Mass/Vol] 9.7 mg/dL Normal 8.7-10.3 [facility] Internal Medicine; [facility] Work Phone: Comment on above: Test(s) 534357-PAP-L ; 256146-ROB-S; 561033-Rgvhdnxmsahla; 943141-Fwyenegppor, Total; 001435-GUQ-U (Total); 168427-Fuzqw LDL-P; 810802-TGW Size; 945654-NM-NZ Scorewas developed and its performance characteristics determinedby [employer]. It has not been cleared or approved by the Foodand Drug Administration.PATIENT WAS FASTINGPERFORMED BY: MOMENTFACE SROton1447 [facility] [id number] BY: [email or web address] [facility] [id number] Chloride [Moles/Vol] 104 mmol/L Normal 96-106 [facility]; [facility] Work Phone: Comment on above: Test(s) 080470-SNO-S ; 488702-NPC-M; 084583-Jfbvinntsjmds; 927958-Tqibipasasb, Total; 554405-RFP-E (Total); 208604-Dzwml LDL-P; 080495-RLW Size; 122745-GE-KI Scorewas developed and its performance characteristics determinedby [employer]. It has not been cleared or approved by the Foodand Drug Administration.PATIENT WAS FASTINGPERFORMED BY: autoGraph Sbxkwdjliw2670 [facility] [id number] BY: Shareholder InSitelin6370 [facility] [id number] CO2 [Moles/Vol] 23 mmol/L Normal 20-29 [facility] Internal Medicine; [facility] Work Phone: Comment on above: Test(s) 029915-EET-Z ; 454991-MWE-O; 240487-Rzpyygwvaxjlk; 495484-Nxequzrmzlg, Total; 214299-GVN-J (Total); 783886-Gamdr LDL-P; 390036-ELQ Size; 491511-JZ-TH Scorewas developed and its performance characteristics determinedby [employer]. It has not been cleared or approved by the Foodand Drug Administration.PATIENT WAS FASTINGPERFORMED BY: autoGraph [address] [id number] BY: Sigasi70 [facility] [id number] Creatinine [Mass/Vol] 0.92 mg/dL Normal 0.57-1.00 [facility] prehensive Internal Medicine; [facility] Work Phone: Comment on above: Test(s) 264765-FSE-W ; 923213-SYE-I; 053976-Ibivlfnshkrro; 730546-Afdkzeopjqn, Total; 407261-EOU-Q (Total); 222982-Wwynt LDL-P; 566165-QUQ Size; 992702-EJ-RX Scorewas developed and its performance characteristics determinedby [employer]. It has not been cleared or approved by the Foodand Drug Administration.PATIENT WAS FASTINGPERFORMED BY: autoGraph [address] [id number] BY: [employer] Zdgowr7225 [facility] [id number] GFR/1.73 sq M.predicted among blacks CKD-EPI (S/P/Bld) [Vol rate/Area] 75 mL/min/1.73 Normal [facility]; [facility] Work Phone: Comment on above: Test(s) 012060-LTW-F ; 003980-TLK-X; 001126-Qukogscxztrnq; 646067-Eyxhmybfjwi, Total; 816250-WHF-M (Total); 789212-Utqej LDL-P; 516193-VLG Size; 448541-VG-QV Scorewas developed and its performance characteristics determinedby [employer]. It has not been cleared or approved by the Foodand Drug Administration.PATIENT WAS FASTINGPERFORMED BY: autoGraph [address] [id number] BY: [email or web address] [facility]Harry [facility] [id number] GFR/1.73 sq M.predicted among non-blacks CKD-EPI (S/P/Bld) [Vol rate/Area] 65 mL/min/1.73 Normal [facility]; [facility] Work Phone: Comment on above: Test(s) 364392-TPU-Y ; 996297-BZG-F; 301491-Cmhsvliahvkve; 683999-Txessblcmza, Total; 489532-TUY-Q (Total); 440196-Vipnk LDL-P; 000361-ICN Size; 279061-SE-SR Scorewas developed and its performance characteristics determinedby [employer]. It has not been cleared or approved by the Foodand Drug Administration.PATIENT WAS FASTINGPERFORMED BY: MOMENTFACE SRO[address] [id number] BY: [email or web address] [facility]manHarry [facility]. [facility] [id number] Globulin (S) [Mass/Vol] 2.4 g/dL Normal 1.5-4.5 [facility]mpket[facility] springfieldensive [facility]; [facility] Work Phone: Comment on above: Test(s) 042034-IPZ-I ; 141625-ARI-A; 489687-Mwysowyafukzp; 495334-Pqgakjcozuf, Total; 583876-WRP-W (Total); 718279-Fjdsj LDL-P; 734531-DBD Size; 364412-FA-CI Scorewas developed and its performance characteristics determinedby [employer]. It has not been cleared or approved by the Foodand Drug Administration.PATIENT WAS FASTINGPERFORMED BY: autoGraph [address] [id number] BY: [email or web address] [facility]manHarry S[facility] [id number] Glucose [Mass/Vol] 101 mg/dL Abnormal 65-99 [facility] Internal [facility]; [facility] Work Phone: Comment on above: Test(s) 630034-SHS-Y ; 189091-HIP-U; 811623-Ncfhshvlkarar; 820106-Yorduedaado, Total; 063855-BHM-B (Total); 353458-Usjuu LDL-P; 260638-PHS Size; 035151-UA-AB Scorewas developed and its performance characteristics determinedby [employer]. It has not been cleared or approved by the Foodand Drug Administration.PATIENT WAS FASTINGPERFORMED BY: autoGraph [address] [id number] BY: AisleFinder6370 [facility] [id number] Potassium [Moles/Vol] 4.8 mmol/L Normal 3.5-5.2 [facility]; [facility] Work Phone: Comment on above: Test(s) 395201-TWK-V ; 656039-YYI-S; 867480-Hdvptuhquchvn; 884654-Rkvlbpinaue, Total; 254578-PBG-D (Total); 866616-Dvopw LDL-P; 593477-ONX Size; 061993-XW-QQ Scorewas developed and its performance characteristics determinedby [employer]. It has not been cleared or approved by the Foodand Drug Administration.PATIENT WAS FASTINGPERFORMED BY: autoGraph [address] [id number] BY: [email or web address] [facility] [id number] Protein [Mass/Vol] 6.6 g/dL Normal 6.0-8.5 [facility] Internal Medicine; [facility] Work Phone: Comment on above: Test(s) 909312-NBB-N ; 144218-KKP-R; 700509-Pljfsbchycllp; 366288-Trnyuybbvtp, Total; 284915-NSX-U (Total); 080868-Yuqtt LDL-P; 377306-BUZ Size; 420491-ZT-PG Scorewas developed and its performance characteristics determinedby [employer]. It has not been cleared or approved by the Foodand Drug Administration.PATIENT WAS FASTINGPERFORMED BY: autoGraph [address] [id number] BY: [email or web address] [facility] [id number] Sodium [Moles/Vol] 141 mmol/L Normal 134-144 [facility] Internal Medicine; [facility] Work Phone: Comment on above: Test(s) 481551-KKA-U ; 014305-ADO-I; 388315-Vfakusvgxuaid; 991358-Poxkytalrzs, Total; 757833-LWB-L (Total); 532895-Cbwhp LDL-P; 138893-DMI Size; 421517-PA-PF Scorewas developed and its performance characteristics determinedby [employer]. It has not been cleared or approved by the Foodand Drug Administration.PATIENT WAS FASTINGPERFORMED BY: autoGraph [address] [id number] BY: [email or web address] [facility] [id number] Urea nitrogen [Mass/Vol] 10 mg/dL Normal 8- [facility] Internal Medicine; [facility] Work Phone: Comment on above: Test(s) 668463-IUE-F ; 338686-BTS-Z; 885204-Epmiqvscwllhh; 144454-Yoicnisessr, Total; 512844-SMM-D (Total); 713633-Dwedc LDL-P; 268857-XDD Size; 652686-TO-PG Scorewas developed and its performance characteristics determinedby [employer]. It has not been cleared or approved by the Foodand Drug Administration.PATIENT WAS FASTINGPERFORMED BY: autoGraph [address] [id number] BY: [employer] Pgoslq7914 [facility] [id number] Urea nitrogen/Creatinine [Mass ratio] 11 mg/mg Abnormal 12- [facility]; [facility] Work Phone: Comment on above: Test(s) 693990-ZIS-K ; 392283-NAY-G; 716548-Ecqgxlsgyrgtp; 874749-Jcbsahkhheg, Total; 708565-XBJ-O (Total); 745744-Olgmp LDL-P; 007364-HAL Size; 145428-RM-ZJ Scorewas developed and its performance characteristics determinedby [employer]. It has not been cleared or approved by the Foodand Drug Administration.PATIENT WAS FASTINGPERFORMED BY: autoGraph [address] [id number] BY: AisleFinder6370 [facility] [id number] MICROALBUMINOrdered By: Syst em Operating Systems Programmer on 05-22-2020 Albumin DL <= 20 mg/L (U) [Mass/Vol] 3.4 ug/mL Normal [facility]; [facility] Work Phone: Comment on above: Test(s) 225500-EYY-X ; 015266-ZYP-Y; 664111-Dcgspbzgtsgmf; 656784-Azdkgbnfigy, Total; 964558-RGZ-L (Total); 417596-Hfmvb LDL-P; 470226-VXL Size; 963861-YQ-ZE Scorewas developed and its performance characteristics determinedby [employer]. It has not been cleared or approved by the Foodand Drug Administration.PATIENT WAS FASTINGPERFORMED BY: autoGraph [address] [id number] BY: [email or web address] [facility] [id number] Albumin/Creatinine (U) [Mass ratio] 6 {mg/g_creat} Normal 0-29 [facility]; [facility] Work Phone: Comment on above: Normal: 0 - 29 Moder ately increased: 30 - 300 Severely increased: >300 Test(s) 918759-LCZ-G ; 810184-PGX-X; 751030-Tzaniprkxetqf; 287260-Fmlsliybtuq, Total; 476243-KQI-A (Total); 797559-Qkoyj LDL-P; 194254-VDI Size; 708686-SE-CB Scorewas developed and its performance characteristics determinedby [employer]. It has not been cleared or approved by the Foodand Drug Administration.PATIENT WAS FASTINGPERFORMED BY: autoGraph [address] [id number] BY: Sigasi70 [facility]High[facility] [id number] Creatinine (U) [Mass/Vol] 52.9 mg/dL Normal [facility]; [facility] Work Phone: Comment on above: Test(s) 887875-DZU-A ; 952897-FVF-Q; 977939-Elliynpatswrs; 303354-Ifshxtaonov, Total; 700262-OBX-X (Total); 631300-Gxejw LDL-P; 367700-BME Size; 138119-WP-DV Scorewas developed and its performance characteristics determinedby [employer]. It has not been cleared or approved by the Foodand Drug Administration.PATIENT WAS FASTINGPERFORMED BY: autoGraph [address] [id number] BY: [email or web address] [facility] [id number] NMR Profile (90401)Ordered B y: Rotor Casting Machine Setup Operator on 05-22-2020 Cholesterol [Mass/Vol] 159 mg/dL Normal 100-199 [facility] Internal Medicine; [facility] Work Phone: Comment on above: Test(s) 230642-EVS-J ; 726144-BBB-H; 092837-Tttlyyfzsjadm; 492789-Pcgbaatimap, Total; 542540-FFL-D (Total); 642574-Jnygf LDL-P; 673418-NFT Size; 989603-YP-WR Scorewas developed and its performance characteristics determinedby [employer]. It has not been cleared or approved by the Foodand Drug Administration.PATIENT WAS FASTINGPERFORMED BY: autoGraph [address] [id number] BY: [email or web address] [facility] [id number] Lipoprotein.alpha [Moles/Vol] 31.1 umol/L Normal [facility]; [facility] Work Phone: Comment on above: Test(s) 355297-TDU-P ; 143831-ZGL-U; 226050-Yfetkjfinbbsg; 592172-Rjhhvdlfbaj, Total; 665049-DGA-J (Total); 057489-Fwqoh LDL-P; 183825-YRW Size; 432469-AP-PO Scorewas developed and its performance characteristics determinedby [employer]. It has not been cleared or approved by the Foodand Drug Administration.PATIENT WAS FASTINGPERFORMED BY: BN [facility] Buntxhxsyl3708 [facility] [id number] BY: CB [facility] Qaairl5408 [facility] [id number] Lipoprotein.beta.subpar ticle [Entitic length] 20.7 nm Normal [facility] Internal [facility]; [facility] Work Phone: Comment on above: INTERPRETATIVE INFORMATION PARTICLE CONCENTRATION AND SIZE <--Lower CVD Risk Higher CVD Risk--> LDL AND HDL PARTICLES Percentile in Reference Population HDL-P (total) High 75th 50th 25th Low >34.9 34.9 30.5 26.7 <26.7 . Small LDL-P Low 25th 50th 75th High <117 117 527 839 >839 . LDL Size <-Large (Pattern A)-> <-Small (Pattern B)-> 23.0 20.6 20.5 19.0 Smal l LDL-P and LDL Size are associated with CVD risk, but not afterLDL-P is taken into account. Test(s) 757643-SQY-F ; 899646-NCD-D; 396676-Avvgpkhpazmwo; 071566-Eavyhlpeydn, Total; 841594-EQR-L (Total); 091217-Leada LDL-P; 489830-OXZ Size; 859336-AS-AK Scorewas developed and its performance characteristics determinedby [employer]. It has not been cleared or approved by the Foodand Drug Administration.PATIENT WAS FASTINGPERFORMED BY: autoGraph [address] [id number] BY: Sonics Xndgoe1774 ConfortVisuelLifeCare Hospitals [facility] [id number] Lipoprotein.beta.subpar ticle [Moles/Vol] 1441 nmol/L Abnormal [facility]; [facility] Work Phone: Comment on above: Low < 1000 Moderate 1000 - 1299 Borderline-High 1300 - 1599 High 1600 - 2000 Very High > 2000 Test(s) 615764-UVO-W ; 896756-NRG-D; 189627-Paeufdlkzjzoe; 904898-Qosbalnjzyw, Total; 656933-HIR-Z (Total); 230330-Blwcw LDL-P; 628669-PQL Size; 439865-XO-FK Scorewas developed and its performance characteristics determinedby [employer]. It has not been cleared or approved by the Foodand Drug Administration.PATIENT WAS FASTINGPERFORMED BY: MOMENTFACE SRO[address] [id number] BY: [email or web address] ConfortVisuelLifeCare Hospit[facility] [place] [id number] Lipoprotein.beta.subpar ticle.small [Moles/Vol] 753 nmol/L Abnormal Comprehe ive Internal Medicine; [facility] Work Phone: Comment on above: Test(s) 454270-NLB-B ; 429885-GNW-U; 852138-Eqgrsdhstvjjl; 680767-Fvnihswxhnz, Total; 900888-ZLH-S (Total); 351072-Sjqyj LDL-P; 077684-SAA Size; 800743-VR-DP Scorewas developed and its performance characteristics determinedby [employer]. It has not been cleared or approved by the Foodand Drug Administration.PATIENT WAS FASTINGPERFORMED BY: autoGraph [address] [id number] BY: Sonics Iknuen1190 [place] [facility]abHighlands-Cash[facility] [id number] Triglyceride [Mass/Vol] 124 mg/dL Normal 0-149 C omprehensive Internal Medicine; [facility] Work Phone: Comment on above: Test(s) 365762-GHP-F ; 148578-FVK-I; 326528-Jljsyrsgjbkvz; 351619-Efgpsahgyrg, Total; 114400-XBH-H (Total); 008875-Alhop LDL-P; 687167-QMD Size; 648072-VK-DO Scorewas developed and its performance characteristics determinedby [employer]. It has not been cleared or approved by the Foodand Drug Administration.PATIENT WAS FASTINGPERFORMED BY: autoGraph [address] [id number] BY: [facility] [id number] NMR Profile (41895) 94 mg/dL Normal 0-99 [facility]; [facility] Work Phone: Comment on above: . Optimal < 100 Abov e optimal 100 - 129 Borderline 130 - 159 High 160 - 189 Very high > 189 . Test(s) 885481-CXW-F ; 339998-JBB-K; 249018-Lxedlujqmsqka; 831513-Ukbgwcdrhqr, Total; 377220-BIG-J (Total); 328235-Yexgr LDL-P; 107772-RLB Size; 393393-RX-PU Scorewas developed and its performance characteristics determinedby [employer]. It has not been cleared or approved by the Foodand Drug Administration.PATIENT WAS FASTINGPERFORMED BY: autoGraph [address] [id number] BY: [email or web address] [facility] [id number] NMR Profile (15551) 43 mg/dL Normal [facility]; [facility] Work Phone: Comment on above: Test(s) 062375-CIK-Q ; 644544-MZF-C; 948049-Rwmezouxhwyaq; 339857-Jvuqsikxxdf, Total; 418010-KKU-T (Total); 699456-Nbrxt LDL-P; 675008-XIH Size; 468047-BO-HX Scorewas developed and its performance characteristics determinedby [employer]. It has not been cleared or approved by the Foodand Drug Administration.PATIENT WAS FASTINGPERFORMED BY: autoGraph [address] [id number] BY: SonicsLourdes Medical Center of Burlington CountyVjcplr0391 [facility] [id number] NMR Profile (04730) 124 mg/dL Normal 0-149 Compr ehensive Internal Medicine; [facility] Work Phone: NMR Profile (42692) 159 mg/dL Normal 100-199 Compr ehens[facility] Internal Medicine; [facility] Work Phone: TSH (THYROID STIMULATING HOR BENJI) (49489)Ordered By: Rotor Casting Machine Setup Operator on 05-22-2020 TSH Qn 1.420 {uIU/mL} Normal 0.450-4.50 0 [facility]; [facility] Work Phone: Comment on above: Test(s) 972604-SGN-K ; 928049-LVW-K; 204350-Haeanmrwqhnep; 602630-Ayblqmtjozl, Total; 246973-PIQ-K (Total); 126414-Rxyhd LDL-P; 908896-EOX Size; 329097-ID-HC Scorewas developed and its performance characteristics determinedby [employer]. It has not been cleared or approved by the Foodand Drug Administration.PATIENT WAS FASTINGPERFORMED BY: autoGraph [address] [id number] BY: Telera Alfevc8170 [facility] [id number] Blood Glucose , Office ([phone])Ordered By: Nohemi Whalen on 11-19-2019 Glucose Glucometer (BldC) [Moles/Vol] 122 1 Normal [facility] Work Phone: HgA1C , Office (85068)Ordere d By: Nohemi Whalen on 11-19-2019 HbA1c (Bld) [Mass fraction] 5.8 % Normal 4.6 - 7.1 [facility] Work Phone: CBC W/AUTO DIFF WBC (21162)O rdered By: Rotor Casting Machine Setup Operator on 11-14-2019 Basophils (Bld) [#/Vol] 0.1 {x10E3/uL} Normal 0.0-0.2 [facility] Work Phone: Comment on above: Test(s) 302290-SJY-G ; 903044-EMN-T; 109458-Eovnuuiilsqse; 597716-Gusgohugxgo, Total; 919783-DJB-S (Total); 252331-Kgopz LDL-P; 931301-JCU Size; 959754-YT-UR Scorewas developed and its performance characteristics determinedby Telera. It has not been cleared or approved by the Foodand Drug Administration.PATIENT WAS FASTINGPERFORMED BY: autoGraph [address] [id number] BY: Sigasi70 [facility] [id number] Basophils (Bld) [#/Vol] 0.1 10*3/uL Normal 0.0-0.2 [facility]; [facility] Work Phone: Comment on above: Test(s) 012668-NTD-O ; 289293-HXX-S; 838597-Ptujeioaarkrk; 337651-Railuihtzcf, Total; 383397-JOK-A (Total); 453274-Urzbt LDL-P; 313008-FUF Size; 947817-AJ-EI Scorewas developed and its performance characteristics determinedby Telera. It has not been cleared or approved by the Foodand Drug Administration.PATIENT WAS FASTINGPERFORMED BY: autoGraph [address] [id number] BY: [email or web address] [facility] [id number] Basophils/100 WBC (Bld) 1 % Normal C omprehensive Internal Medicine Work Phone: Comment on above: Test(s) 394978-SSV-J ; 903446-ECJ-R; 544888-Rwbrjirwnnmfh; 422672-Qmwpiyhgpbg, Total; 326839-IAJ-L (Total); 181001-Meadi LDL-P; 864386-SFQ Size; 714035-RD-JX Scorewas developed and its performance characteristics determinedby Telera. It has not been cleared or approved by the Foodand Drug Administration.PATIENT WAS FASTINGPERFORMED BY: Sonics[address] [id number] BY: SonicsLourdes Medical Center of Burlington CountyPmphbj4504 [facility] [id number] Eosinophils (Bld) [#/Vol] 0.2 {x10E3/uL} Normal 0.0-0.4 [facility] Work Phone: Comment on above: Test(s) 888833-ZKH-Z ; 315299-TPD-M; 143158-Wplmclhgoqhha; 349832-Ouhzlnqoacn, Total; 084274-BXZ-E (Total); 531976-Lxqyf LDL-P; 416033-HVW Size; 217190-EW-XY Scorewas developed and its performance characteristics determinedby Telera. It has not been cleared or approved by the Foodand Drug Administration.PATIENT WAS FASTINGPERFORMED BY: Telera [address] [id number] BY: Sonics Jsxaou8370 [facility] [id number] Eosinophils (Bld) [#/Vol] 0.2 10*3/uL Normal 0.0-0.4 [facility]; [facility] Work Phone: Comment on above: Test(s) 226912-VMR-K ; 454983-WZM-X; 933049-Fxkyfuvjyavhy; 594053-Baddpmydkwy, Total; 622538-HBY-E (Total); 808153-Bpevq LDL-P; 827723-CXZ Size; 411104-SC-LW Scorewas developed and its performance characteristics determinedby Telera. It has not been cleared or approved by the Foodand Drug Administration.PATIENT WAS FASTINGPERFORMED BY: Sonics[address] [id number] BY: SonicsLourdes Medical Center of Burlington CountyTcupqp4678 [facility] [id number] Eosinophils/100 WBC (Bld) 3 % Normal [facility] Work Phone: Comment on above: Test(s) 244743-RNG-L ; 858961-WIT-H; 477279-Prxlmnwlypmnj; 829976-Qywxhosfbgj, Total; 649427-OER-S (Total); 198491-Pmncn LDL-P; 650821-WWW Size; 174763-EB-GI Scorewas developed and its performance characteristics determinedby Telera. It has not been cleared or approved by the Foodand Drug Administration.PATIENT WAS FASTINGPERFORMED BY: autoGraph [address] [id number] BY: Sigasi70 [facility] [id number] Erythrocyte distribution width (RBC) [Ratio] 13.9 % Normal 11.7-15.4 [facility] Work Phone: Comment on above: Test(s) 862474-MRO-L ; 673343-OAN-R; 556738-Gqhxbbrqsnkol; 440364-Kpuknmbdvrl, Total; 372995-MKC-S (Total); 119755-Echvp LDL-P; 011607-NBV Size; 103713-BD-GK Scorewas developed and its performance characteristics determinedby Telera. It has not been cleared or approved by the Foodand Drug Administration.PATIENT WAS FASTINGPERFORMED BY: autoGraph [address] [id number] BY: [email or web address] [facility] [id number] Hematocrit (Bld) [Volume fraction] 40.4 % Normal 34.0-46.6 [facility] Work Phone: Comment on above: Test(s) 494464-NNX-S ; 691218-ZJU-Q; 548440-Hbrpgguipdryg; 132348-Dkcevgyzhhy, Total; 991230-GCY-K (Total); 314003-Utlpj LDL-P; 459277-AYE Size; 967473-PF-TX Scorewas developed and its performance characteristics determinedby Telera. It has not been cleared or approved by the Foodand Drug Administration.PATIENT WAS FASTINGPERFORMED BY: autoGraph [address] [id number] BY: SonicsNew Mexico Behavioral Health Institute at Las VegasOwtvud2929 [facility] [id number] Hemoglobin (Bld) [Mass/Vol] 13.1 g/dL Normal 11.1-15.9 [facility] Work Phone: Comment on above: Test(s) 543420-YRX-O ; 493814-LIX-V; 302266-Qvvadduaqjqqc; 773594-Nrgtkrdenoz, Total; 496022-WTZ-S (Total); 249304-Dlcfc LDL-P; 401886-RAA Size; 646349-MP-QK Scorewas developed and its performance characteristics determinedby Telera. It has not been cleared or approved by the Foodand Drug Administration.PATIENT WAS FASTINGPERFORMED BY: autoGraph [address] [id number] BY: Sigasi70 [facility] [id number] Immature granulocytes (Bld) [#/Vol] 0.0 {x10E3/uL} Normal 0.0-0.1 [facility] Work Phone: Comment on above: Test(s) 897117-DNA-Q ; 408471-CKZ-Q; 633654-Jofvlpzoyngqe; 548032-Eywcblnpwrz, Total; 332645-XQJ-A (Total); 828687-Pctqk LDL-P; 016188-RFI Size; 074904-TT-NZ Scorewas developed and its performance characteristics determinedby Telera. It has not been cleared or approved by the Foodand Drug Administration.PATIENT WAS FASTINGPERFORMED BY: Sonics[address] [id number] BY: Endeavour Software TechnologiesLourdes Medical Center of Burlington CountyGzfuin7024 [facility] [id number] Immature granulocytes (Bld) [#/Vol] 0.0 10*3/uL Normal 0.0-0.1 [facility]; [facility] Work Phone: Comment on above: Test(s) 431773-NNX-C ; 195611-JTM-R; 435146-Fqientrvrlrnn; 606330-Rqicqljkecj, Total; 532444-KWT-Y (Total); 475894-Qfxrz LDL-P; 014195-KUZ Size; 969907-WB-JJ Scorewas developed and its performance characteristics determinedby Telera. It has not been cleared or approved by the Foodand Drug Administration.PATIENT WAS FASTINGPERFORMED BY: autoGraph [address] [id number] BY: Sigasi70 GilmanFreeman Cancer InstituteHuixiaoerLifeCare Hospitals of North [place] [id number] Immature granulocytes/100 WBC (Bld) 0 % Normal [facility] Work Phone: Comment on above: Test(s) 050474-RMF-W ; 961707-SQR-V; 635961-Beyneundjynar; 347731-Yvqezlffotv, Total; 134930-MTE-F (Total); 705143-Aplfw LDL-P; 229976-VCY Size; 213253-EW-IX Scorewas developed and its performance characteristics determinedby Telera. It has not been cleared or approved by the Foodand Drug Administration.PATIENT WAS FASTINGPERFORMED BY: autoGraph [address] [id number] BY: Sigasi70 [facility]Harry [facility] [id number] Lymphocytes (Bld) [#/Vol] 2.4 {x10E3/uL} Normal 0.7-3.1 [facility] Work Phone: Comment on above: Test(s) 956637-HLG-Z ; 571503-ASK-L; 181298-Ytquoziymvnyt; 931184-Qzkcfyvaply, Total; 014497-LSE-Y (Total); 543955-Tkuor LDL-P; 145982-CTG Size; 663714-UK-DZ Scorewas developed and its performance characteristics determinedby Telera. It has not been cleared or approved by the Foodand Drug Administration.PATIENT WAS FASTINGPERFORMED BY: autoGraph [address] [id number] BY: Sigasi70 [facility] [id number] Lymphocytes (Bld) [#/Vol] 2.4 10*3/uL Normal 0.7-3.1 [facility]; [facility] Work Phone: Comment on above: Test(s) 527719-ENB-P ; 949677-UBW-E; 169275-Tkqmevywhmiqw; 606409-Wzutolusupg, Total; 361675-MNR-K (Total); 687037-Qkgly LDL-P; 014767-JKJ Size; 699792-EN-PM Scorewas developed and its performance characteristics determinedby Telera. It has not been cleared or approved by the Foodand Drug Administration.PATIENT WAS FASTINGPERFORMED BY: MOMENTFACE SRO[address] [id number] BY: [email or web address] [facility] [facility] HospitalHuixiaoerLifeCare Hospitals of North [place] [id number] Lymphocytes/100 WBC (Bld) 30 % Normal [facility] Work Phone: Comment on above: Test(s) 715173-HSP-M ; 003082-BQX-S; 292975-Oyjirbemlcxue; 049903-Slmfqxjpulk, Total; 849486-MZB-H (Total); 396449-Jxvbm LDL-P; 875391-DJK Size; 170681-PI-GC Scorewas developed and its performance characteristics determinedby Telera. It has not been cleared or approved by the Foodand Drug Administration.PATIENT WAS FASTINGPERFORMED BY: MOMENTFACE SRO[address] [id number] BY: [employer] Gpetaz7462 [facility] [id number] MCH (RBC) [Entitic mass] 31.0 pg Normal 26.6-33.0 [facility] Work Phone: Comment on above: Test(s) 356168-GGE-P ; 519050-ZML-E; 984744-Uvupfmwjqlxyo; 869955-Adcmrbbdztm, Total; 253586-UTS-V (Total); 188065-Puwsy LDL-P; 259765-QSA Size; 767551-EQ-MJ Scorewas developed and its performance characteristics determinedby Telera. It has not been cleared or approved by the Foodand Drug Administration.PATIENT WAS FASTINGPERFORMED BY: autoGraph [address] [id number] BY: [email or web address] [facility] [id number] MCHC (RBC) [Mass/Vol] 32.4 g/dL Normal 31.5-35.7 Com [facility]ensive [facility] Work Phone: Comment on above: Test(s) 909115-CPI-B ; 180042-CWK-B; 481389-Mnsdweqcncfao; 879806-Lbclpcreccf, Total; 483308-QDA-L (Total); 141322-Iifdv LDL-P; 780995-NFG Size; 478591-EM-BZ Scorewas developed and its performance characteristics determinedby Telera. It has not been cleared or approved by the Foodand Drug Administration.PATIENT WAS FASTINGPERFORMED BY: MOMENTFACE SRO[address] [id number] BY: Sigasi70 [place] iCabbiLifeCare Hospitals of North [place] [id number] MCV (RBC) [Entitic vol] 96 fL Normal 79-97 C [facility] Internal Medicine Work Phone: Comment on above: Test(s) 681663-WIT-Y ; 027297-ARX-C; 532771-Dotdyqwutorrv; 661665-Jrxcsghswbh, Total; 379511-SZR-S (Total); 447005-Jvnnp LDL-P; 134445-VBN Size; 712155-BO-QS Scorewas developed and its performance characteristics determinedby Telera. It has not been cleared or approved by the Foodand Drug Administration.PATIENT WAS FASTINGPERFORMED BY: autoGraph [address] [id number] BY: [email or web address] [facility] [id number] Monocytes (Bld) [#/Vol] 0.5 {x10E3/uL} Normal 0.1-0.9 [facility] Work Phone: Comment on above: Test(s) 668627-LYS-K ; 376847-EWI-L; 629893-Tbjimohckfzax; 343332-Dtbnvbduhgp, Total; 444618-DAD-Z (Total); 869547-Lrwls LDL-P; 455805-CSN Size; 857428-AF-LP Scorewas developed and its performance characteristics determinedby Telera. It has not been cleared or approved by the Foodand Drug Administration.PATIENT WAS FASTINGPERFORMED BY: autoGraph [address] [id number] BY: Sigasi70 [facility]manHarry [facility]. [facility] [id number] Monocytes (Bld) [#/Vol] 0.5 10*3/uL Normal 0.1-0.9 [facility] Internal Medicine; [facility] Internal Medicine Work Phone: Comment on above: Test(s) 013052-WIX-U ; 144549-CQJ-S; 865060-Qrggimcroedmk; 603922-Coyoxmevues, Total; 041136-PGG-B (Total); 201584-Ynxad LDL-P; 875295-NOK Size; 519297-RS-QK Scorewas developed and its performance characteristics determinedby Telera. It has not been cleared or approved by the Foodand Drug Administration.PATIENT WAS FASTINGPERFORMED BY: autoGraph [address] [id number] BY: Sigasi70 [facility]manHarry S. [facility] [id number] Monocytes/100 WBC (Bld) 6 % Normal C [facility]mpnew [facility] Internal Medicine Work Phone: Comment on above: Test(s) 785987-NYH-Y ; 767582-GNB-X; 329766-Rdcyyuowtuqxs; 188137-Riaakqexiuj, Total; 524599-OXV-L (Total); 781995-Mbitg LDL-P; 214307-AXC Size; 429139-YD-UJ Scorewas developed and its performance characteristics determinedby Telera. It has not been cleared or approved by the Foodand Drug Administration.PATIENT WAS FASTINGPERFORMED BY: Declara[address] [id number] BY: SonicsLourdes Medical Center of Burlington CountyOwmcdx6808 [facility] [id number] Neutrophils (Bld) [#/Vol] 4.8 {x10E3/uL} Normal 1.4-7.0 [facility] Work Phone: Comment on above: Test(s) 440004-MPK-D ; 231213-YER-L; 659164-Oukoetepttcgb; 044884-Hmdpawortri, Total; 711740-SQB-F (Total); 362764-Dbbyr LDL-P; 959232-QBF Size; 284265-II-FU Scorewas developed and its performance characteristics determinedby Telera. It has not been cleared or approved by the Foodand Drug Administration.PATIENT WAS FASTINGPERFORMED BY: autoGraph [address] [id number] BY: Sonics Wrjrnq8109 [facility] [id number] Neutrophils (Bld) [#/Vol] 4.8 10*3/uL Normal 1.4-7.0 [facility]; [facility] Work Phone: Comment on above: Test(s) 346803-SPH-E ; 416366-QZG-C; 221367-Zpwzmhdppuuic; 877819-Fdawuabvbjh, Total; 746745-GCT-O (Total); 467965-Kjbco LDL-P; 682744-KLY Size; 207422-JF-CJ Scorewas developed and its performance characteristics determinedby Telera. It has not been cleared or approved by the Foodand Drug Administration.PATIENT WAS FASTINGPERFORMED BY: Sonics[address] [id number] BY: SonicsLourdes Medical Center of Burlington CountyAgmdyn4669 [facility] [id number] Neutrophils/100 WBC (Bld) 60 % Normal [facility] Work Phone: Comment on above: Test(s) 775820-DIB-V ; 645341-TQM-O; 469490-Qyfbyvelotnhq; 009485-Gmqkpqwyfmg, Total; 697434-NBI-O (Total); 029500-Prmfl LDL-P; 378215-KEX Size; 885129-KE-UD Scorewas developed and its performance characteristics determinedby Telera. It has not been cleared or approved by the Foodand Drug Administration.PATIENT WAS FASTINGPERFORMED BY: MOMENTFACE SRO[address] [id number] BY: Sigasi70 [facility] [id number] Platelets (Bld) [#/Vol] 400 {x10E3/uL} Normal 150-450 [facility] Work Phone: Comment on above: Test(s) 582287-RZL-I ; 184437-XBN-H; 022243-Jcelvlcqjkujl; 593826-Yutigqvrrqx, Total; 550190-DPD-Y (Total); 435929-Eaega LDL-P; 594301-OXF Size; 226027-HB-ND Scorewas developed and its performance characteristics determinedby Telera. It has not been cleared or approved by the Foodand Drug Administration.PATIENT WAS FASTINGPERFORMED BY: MOMENTFACE SRO[address] [id number] BY: [email or web address] [facility] [id number] Platelets (Bld) [#/Vol] 400 10*3/uL Normal 150-450 [facility]; [facility] Work Phone: Comment on above: Test(s) 294604-GAA-Y ; 056102-YWB-P; 967465-Wgvcjasmknkhy; 830580-Jhfakquhhcf, Total; 849884-OZL-L (Total); 996257-Intds LDL-P; 083093-SVT Size; 495909-AX-FL Scorewas developed and its performance characteristics determinedby Telera. It has not been cleared or approved by the Foodand Drug Administration.PATIENT WAS FASTINGPERFORMED BY: autoGraph [address] [id number] BY: Sigasi70 [facility] [id number] RBC (Bld) [#/Vol] 4.23 {x10E6/uL} Normal 3.77-5.28 [facility] Internal Medicine Work Phone: Comment on above: Test(s) 406864-XMY-A ; 562316-SUD-J; 532571-Evorfdlpbfspk; 961336-Tfvkqihovkh, Total; 502572-FCP-H (Total); 868250-Ahsry LDL-P; 720729-WUS Size; 409562-BY-OZ Scorewas developed and its performance characteristics determinedby Telera. It has not been cleared or approved by the Foodand Drug Administration.PATIENT WAS FASTINGPERFORMED BY: MOMENTFACE SRO[address] [id number] BY: [email or web address] [facility] [id number] RBC (Bld) [#/Vol] 4.23 10*6/uL Normal 3.77-5.28 [facility] Internal Medicine; [facility] Internal Medicine Work Phone: Comment on above: Test(s) 745403-ZFC-P ; 493708-KLI-O; 201091-Nhqyqktyiwehv; 062321-Umxxqizwcbi, Total; 523674-ING-V (Total); 087125-Lcfyp LDL-P; 772906-AAM Size; 438408-ZN-WI Scorewas developed and its performance characteristics determinedby Telera. It has not been cleared or approved by the Foodand Drug Administration.PATIENT WAS FASTINGPERFORMED BY: autoGraph [address] [id number] BY: PassbeeMedialin6370 [facility] [id number] WBC (Bld) [#/Vol] 7.9 {x10E3/uL} Normal 3.4-10.8 [facility] Internal Medicine Work Phone: Comment on above: Test(s) 372188-OEZ-R ; 449311-BMR-R; 571023-Iybwwbpfzogcc; 437220-Woacxqbmkdt, Total; 999112-QBW-L (Total); 130929-Kzkdj LDL-P; 324600-IDH Size; 116579-RQ-VN Scorewas developed and its performance characteristics determinedby Telera. It has not been cleared or approved by the Foodand Drug Administration.PATIENT WAS FASTINGPERFORMED BY: autoGraph [address] [id number] BY: ZeeVee70 [facility] [id number] WBC (Bld) [#/Vol] 7.9 10*3/uL Normal 3.4-10.8 [facility] Internal Medicine; [facility] Internal Medicine Work Phone: Comment on above: Test(s) 786372-QNK-W ; 055905-RGC-T; 775267-Jxkyikuudrljx; 984438-Vtdctkpfybv, Total; 822763-MZL-J (Total); 537543-Vhjek LDL-P; 467565-SCD Size; 125897-JP-WQ Scorewas developed and its performance characteristics determinedby Telera. It has not been cleared or approved by the Foodand Drug Administration.PATIENT WAS FASTINGPERFORMED BY: autoGraph [address] [id number] BY: [employer] Ojimww6443 [facility] [id number] METABOLIC PANEL, COMPREHENSI VE (42921)Ordered By: Rotor Casting Machine Setup Operator on 11-14-2019 Albumin [Mass/Vol] 4.6 g/dL Normal 3.8-4.8 [facility] Internal Medicine Work Phone: Comment on above: Test(s) 815613-KXZ-K ; 132920-XGI-F; 380880-Swajpvtxqyvzv; 251192-Nxalxtbqfup, Total; 873540-FVI-J (Total); 602567-Apgze LDL-P; 161377-KAG Size; 502348-SA-ZK Scorewas developed and its performance characteristics determinedby Telera. It has not been cleared or approved by the Foodand Drug Administration.PATIENT WAS FASTINGPERFORMED BY: autoGraph [address] [id number] BY: Endeavour Software TechnologiesLourdes Medical Center of Burlington CountyXvzjji2227 [facility] [id number] Albumin/Globulin [Mass ratio] 2.0 {ratio} Normal 1.2-2.2 [facility] Work Phone: Comment on above: Test(s) 447278-CHA-L ; 532842-ELB-D; 377763-Uzhbdlsjnhknj; 660924-Dlljtwefkzi, Total; 746860-XVW-O (Total); 196567-Vidmj LDL-P; 870335-RRT Size; 793395-WB-FS Scorewas developed and its performance characteristics determinedby Telera. It has not been cleared or approved by the Foodand Drug Administration.PATIENT WAS FASTINGPERFORMED BY: autoGraph [address] [id number] BY: [email or web address] [facility]manHarry [facility]. [facility] [id number] ALP [Catalytic activity/Vol] 101 [iU]/L Normal 39-117 [facility] Work Phone: Comment on above: Test(s) 517226-FPP-V ; 294032-ABF-G; 140824-Vpbipkxcgpfrt; 664268-Mhdxhoeuuej, Total; 760870-GKF-X (Total); 260961-Atrby LDL-P; 747019-XGE Size; 610396-FE-QE Scorewas developed and its performance characteristics determinedby Telera. It has not been cleared or approved by the Foodand Drug Administration.PATIENT WAS FASTINGPERFORMED BY: Declara[address] [id number] BY: Endeavour Software TechnologiesLourdes Medical Center of Burlington CountyEnbtvu0780 [facility] [id number] ALP [Catalytic activity/Vol] 101 U/L Normal 39-117 [facility]; [facility] Work Phone: Comment on above: Test(s) 841195-GFA-D ; 807571-GXY-S; 398751-Vcoxsacyexrzr; 582926-Jishyfmahde, Total; 419738-WVI-G (Total); 256357-Uzbrb LDL-P; 299543-QZF Size; 002674-HU-OR Scorewas developed and its performance characteristics determinedby Telera. It has not been cleared or approved by the Foodand Drug Administration.PATIENT WAS FASTINGPERFORMED BY: Sonics[address] [id number] BY: SonicsLourdes Medical Center of Burlington CountyCvmccf3986 [facility] [id number] ALT [Catalytic activity/Vol] 17 [iU]/L Normal 0-32 [facility] Work Phone: Comment on above: Test(s) 925525-RUV-N ; 249706-IZF-E; 362120-Ouwcpvjkolkjj; 290150-Jipdkhwbjet, Total; 439152-CMC-L (Total); 712869-Prmet LDL-P; 221681-JUJ Size; 843436-HU-TC Scorewas developed and its performance characteristics determinedby Telera. It has not been cleared or approved by the Foodand Drug Administration.PATIENT WAS FASTINGPERFORMED BY: Sonics[address] [id number] BY: Sonics Hwbfcc9183 [place] KymabHighlands-Cashiers Hospital [id number] ALT [Catalytic activity/Vol] 17 U/L Normal 0-32 [facility]; [facility] Work Phone: Comment on above: Test(s) 064055-ZJE-V ; 290514-XXK-E; 762801-Oiacqgktgaact; 324403-Nvhpipzoary, Total; 033278-XUC-X (Total); 580595-Rhejl LDL-P; 950225-YQC Size; 775192-HC-FY Scorewas developed and its performance characteristics determinedby [employer]. It has not been cleared or approved by the Foodand Drug Administration.PATIENT WAS FASTINGPERFORMED BY: Sonics[address] [id number] BY: SonicsLourdes Medical Center of Burlington CountySjnrhf1916 [facility] [id number] AST [Catalytic activity/Vol] 20 [iU]/L Normal 0-40 [facility] Work Phone: Comment on above: Test(s) 363005-SBT-E ; 100745-YVK-X; 703830-Opjejreisjygi; 773848-Xsngrpbbgnl, Total; 087498-QJX-H (Total); 317914-Nqimz LDL-P; 991610-JJM Size; 067833-QR-AV Scorewas developed and its performance characteristics determinedby [employer]. It has not been cleared or approved by the Foodand Drug Administration.PATIENT WAS FASTINGPERFORMED BY: autoGraph [address] [id number] BY: Sigasi[address] KymabHighlands-Cashiers [facility] [id number] AST [Catalytic activity/Vol] 20 U/L Normal 0-40 [facility]; [facility] Work Phone: Comment on above: Test(s) 487089-FKY-R ; 246312-XKA-F; 792816-Wijoxscgmciee; 003086-Rohlsazzvlt, Total; 484645-PYZ-I (Total); 092880-Asnxo LDL-P; 122305-WEU Size; 675304-FD-FD Scorewas developed and its performance characteristics determinedby [employer]. It has not been cleared or approved by the Foodand Drug Administration.PATIENT WAS FASTINGPERFORMED BY: autoGraph [address] [id number] BY: [email or web address] [facility]manHarry [facility] [id number] Bilirubin [Mass/Vol] 0.2 mg/dL Normal 0.0-1.2 [facility] Internal Medicine Work Phone: Comment on above: Test(s) 064363-SNI-U ; 227910-XPS-N; 654965-Megqjnxsjecwk; 858046-Zejfmorkiot, Total; 049321-THG-F (Total); 653049-Swbqr LDL-P; 475438-PVD Size; 580459-XT-TW Scorewas developed and its performance characteristics determinedby [employer]. It has not been cleared or approved by the Foodand Drug Administration.PATIENT WAS FASTINGPERFORMED BY: autoGraph [address] [id number] BY: [employer] Enndwr2987 [facility] [id number] Calcium [Mass/Vol] 9.5 mg/dL Normal 8.7-10.3 [facility] Internal Medicine Work Phone: Comment on above: Test(s) 680043-KMA-B ; 008638-ISR-K; 241802-Iihivulkxbpmn; 454481-Ridmxtdtvyu, Total; 179015-ZNC-S (Total); 786614-Qisio LDL-P; 373499-EKO Size; 043449-FD-PS Scorewas developed and its performance characteristics determinedby [employer]. It has not been cleared or approved by the Foodand Drug Administration.PATIENT WAS FASTINGPERFORMED BY: MOMENTFACE SRO[address] [id number] BY: [email or web address] [facility] [id number] Chloride [Moles/Vol] 98 mmol/L Normal 96-106 Comp [facility] Internal Medicine Work Phone: Comment on above: Test(s) 658766-ABP-K ; 202005-MXD-P; 531055-Ysnhmcmmzwgvq; 647878-Kpzqdbzvoxt, Total; 688531-BCG-E (Total); 511038-Jjsgz LDL-P; 017629-KIO Size; 423816-YN-XO Scorewas developed and its performance characteristics determinedby [employer]. It has not been cleared or approved by the Foodand Drug Administration.PATIENT WAS FASTINGPERFORMED BY: autoGraph [address] [id number] BY: [employer] Ttztwe8691 [facility] [id number] CO2 [Moles/Vol] 20 mmol/L Normal 20-29 [facility] Internal Medicine Work Phone: Comment on above: Test(s) 406348-NES-T ; 527756-ZFT-V; 108922-Yudvywbajhdys; 666503-Tdszdlyzems, Total; 766944-CIM-M (Total); 856808-Gnmgr LDL-P; 873809-YKV Size; 539984-HN-RZ Scorewas developed and its performance characteristics determinedby [employer]. It has not been cleared or approved by the Foodand Drug Administration.PATIENT WAS FASTINGPERFORMED BY: autoGraph [address] [id number] BY: Sigasi70 [facility] [id number] Creatinine [Mass/Vol] 1.07 mg/dL Abnormal 0.57-1.00 [facility] Internal Medicine Work Phone: Comment on above: Test(s) 419453-KNN-C ; 861199-LIV-A; 433858-Hpezqylibgfjr; 573270-Xlkfjwpikle, Total; 496973-VWG-O (Total); 059539-Hbqmx LDL-P; 143367-ZRE Size; 317008-GK-IP Scorewas developed and its performance characteristics determinedby [employer]. It has not been cleared or approved by the Foodand Drug Administration.PATIENT WAS FASTINGPERFORMED BY: autoGraph [address] [id number] BY: Sigasi70 [facility] [id number] GFR/1.73 sq M predicted among blacks CKD-EPI (S/P/Bld) [Vol rate/Area] 63 mL/min/1.73 Normal [facility] Internal Medicine Work Phone: Comment on above: Test(s) 517201-HAI-I ; 756779-IWS-U; 096287-Yotxittvwhvxx; 521034-Ydqzgaayobf, Total; 268033-MNC-Z (Total); 825092-Ztvnz LDL-P; 221722-YPA Size; 093788-YL-LO Scorewas developed and its performance characteristics determinedby [employer]. It has not been cleared or approved by the Foodand Drug Administration.PATIENT WAS FASTINGPERFORMED BY: autoGraph [address] [id number] BY: Sigasi70 [facility] [id number] GFR/1.73 sq M predicted among non-blacks CKD-EPI (S/P/Bld) [Vol rate/Area] 54 mL/min/1.73 Abnormal [facility] Internal Medicine Work Phone: Comment on above: Test(s) 938545-HVA-Z ; 177820-IKJ-K; 541404-Sajsuzpqadcau; 730210-Fldihjopwgq, Total; 921662-CJG-A (Total); 059347-Dobcx LDL-P; 117170-ZGK Size; 795271-OJ-YP Scorewas developed and its performance characteristics determinedby [employer]. It has not been cleared or approved by the Foodand Drug Administration.PATIENT WAS FASTINGPERFORMED BY: MOMENTFACE SRO[address] [id number] BY: [email or web address] [facility] [id number] Globulin (S) [Mass/Vol] 2.3 g/dL Normal 1.5-4.5 [facility] Internal Medicine Work Phone: Comment on above: Test(s) 060161-KET-Y ; 577846-CEC-Z; 422985-Mttlerewfcaqh; 497548-Hzyfdynlkqw, Total; 257136-BWT-Z (Total); 574939-Nelxl LDL-P; 421710-QGS Size; 758026-LG-PT Scorewas developed and its performance characteristics determinedby [employer]. It has not been cleared or approved by the Foodand Drug Administration.PATIENT WAS FASTINGPERFORMED BY: autoGraph [address] [id number] BY: [email or web address] [facility] [id number] Glucose [Mass/Vol] 98 mg/dL Normal 65-99 [facility] Internal Medicine Work Phone: Comment on above: Test(s) 938731-TRN-T ; 865709-YHL-C; 826102-Fbgbvgbigorgc; 600662-Dhsbmsczjet, Total; 657400-OXY-H (Total); 929092-Xgaut LDL-P; 107012-RPZ Size; 190539-KN-PA Scorewas developed and its performance characteristics determinedby [employer]. It has not been cleared or approved by the Foodand Drug Administration.PATIENT WAS FASTINGPERFORMED BY: Declara[address] [id number] BY: Sonics Adnldt3695 [facility] [id number] Potassium [Moles/Vol] 5.1 mmol/L Normal 3.5-5.2 [facility] Internal Medicine Work Phone: Comment on above: Test(s) 673306-UHD-K ; 387728-ESV-G; 678654-Pkvhtvgpxyrrp; 779596-Znzycldsayx, Total; 005204-FWH-P (Total); 262869-Hgaem LDL-P; 583539-VVB Size; 046772-GO-XR Scorewas developed and its performance characteristics determinedby [employer]. It has not been cleared or approved by the Foodand Drug Administration.PATIENT WAS FASTINGPERFORMED BY: autoGraph [address] [id number] BY: Sigasi70 [facility] [id number] Protein [Mass/Vol] 6.9 g/dL Normal 6.0-8.5 [facility] Internal Medicine Work Phone: Comment on above: Test(s) 164912-BVO-T ; 768244-XXO-N; 898372-Cnihommydhnhm; 383983-Omuoxgrokfa, Total; 472529-VQK-J (Total); 240842-Kthnf LDL-P; 208679-EII Size; 897243-BN-SL Scorewas developed and its performance characteristics determinedby [employer]. It has not been cleared or approved by the Foodand Drug Administration.PATIENT WAS FASTINGPERFORMED BY: Declara[address] [id number] BY: [employer] Wgvqmn9649 [facility] [id number] Sodium [Moles/Vol] 137 mmol/L Normal 134-144 [facility] Internal Medicine Work Phone: Comment on above: Test(s) 695960-MGB-X ; 619966-TJB-V; 465123-Klromopzohtww; 232888-Fjjijnybwui, Total; 081722-MLF-W (Total); 044191-Rkegc LDL-P; 973989-VMF Size; 120376-XK-LW Scorewas developed and its performance characteristics determinedby [employer]. It has not been cleared or approved by the Foodand Drug Administration.PATIENT WAS FASTINGPERFORMED BY: autoGraph [address] [id number] BY: Sigasi70 [facility] [id number] Urea nitrogen [Mass/Vol] 15 mg/dL Normal 8- [facility] Internal Medicine Work Phone: Comment on above: Test(s) 225460-NVZ-W ; 486872-GGZ-D; 718794-Ovxywdualwipf; 376350-Hcueluflgcw, Total; 734831-KVI-G (Total); 400542-Okqbu LDL-P; 691751-PZC Size; 364765-JF-UG Scorewas developed and its performance characteristics determinedby [employer]. It has not been cleared or approved by the Foodand Drug Administration.PATIENT WAS FASTINGPERFORMED BY: autoGraph [address] [id number] BY: [employer] Dzhnnt9108 [facility] [id number] Urea nitrogen/Creatinine [Mass ratio] 14 mg/mg Normal 12- [facility] Work Phone: Comment on above: Test(s) 727161-ICR-F ; 970916-PNL-J; 792453-Vkqptnivchakc; 249310-Cvvlcxmeidw, Total; 946114-LJY-Y (Total); 556096-Cgfay LDL-P; 684919-MTZ Size; 255880-PP-ZA Scorewas developed and its performance characteristics determinedby [employer]. It has not been cleared or approved by the Foodand Drug Administration.PATIENT WAS FASTINGPERFORMED BY: autoGraph [address] [id number] BY: Sonics Gmvylc3276 [facility] [id number] NMR Profile (82174)Ordered B y: [employer] Machine Setup Operator on 11-14-2019 Cholesterol [Mass/Vol] 177 mg/dL Normal 100-199 Co [facility] Internal Medicine Work Phone: Comment on above: Test(s) 803588-BKB-Y ; 286075-MWE-H; 084434-Kaebwfnlstcxk; 297553-Vqnhvlavenz, Total; 782466-EAJ-E (Total); 490705-Xzguy LDL-P; 886525-SRT Size; 814314-ZL-EI Scorewas developed and its performance characteristics determinedby [employer]. It has not been cleared or approved by the Foodand Drug Administration.PATIENT WAS FASTINGPERFORMED BY: MOMENTFACE SRO[address] [id number] BY: Sigasi70 [facility] [id number] Lipoprotein.alpha [Moles/Vol] 33.7 umol/L Normal [facility] Internal Medicine Work Phone: Comment on above: Test(s) 952094-ZDI-J ; 768634-FRF-B; 398402-Wbylazkeagjyk; 116737-Zzpdoetevun, Total; 777794-NCA-D (Total); 151354-Rtjni LDL-P; 630307-EPO Size; 135287-OI-GO Scorewas developed and its performance characteristics determinedby [employer]. It has not been cleared or approved by the Foodand Drug Administration.PATIENT WAS FASTINGPERFORMED BY: Declara[address] [id number] BY: [employer] Cfopgf8835 [facility] [id number] Lipoprotein.beta.subpar ticle [Entitic length] 21.3 nm Normal [facility] Internal Medicine Work Phone: Comment on above: INTERPRETATIVE INFORMATION PARTICLE CONCENTRATION AND SIZE <--Lower CVD Risk Higher CVD Risk--> LDL AND HDL PARTICLES Percentile in Reference Population HDL-P (total) High 75th 50th 25th Low >34.9 34.9 30.5 26.7 <26.7 . Small LDL-P Low 25th 50th 75th High <117 117 527 839 >839 . LDL Size <-Large (Pattern A)-> <-Small (Pattern B)-> 23.0 20.6 20.5 19.0 Smal l LDL-P and LDL Size are associated with CVD risk, but not afterLDL-P is taken into account. Test(s) 906205-WQS-S ; 592289-FLZ-N; 297468-Hdtdufeufacki; 965630-Mjopyeuyzhu, Total; 099835-PIQ-V (Total); 602156-Cicco LDL-P; 207638-PJJ Size; 241774-SR-YW Scorewas developed and its performance characteristics determinedby [employer]. It has not been cleared or approved by the Foodand Drug Administration.PATIENT WAS FASTINGPERFORMED BY: Sonics[address] [id number] BY: LabCloneLourdes Medical Center of Burlington CountyOyqypy2901 [facility] [id number] Lipoprotein.beta.subpar ticle [Moles/Vol] 1532 nmol/L Abnormal [facility] Work Phone: Comment on above: Low < 1000 Moderate 1000 - 1299 Borderline-High 1300 - 1599 High 1600 - 2000 Very High > 2000 Test(s) 253185-EQJ-D ; 233435-DSL-K; 767189-Yxospsahkqfon; 961969-Fhhbinqkvwv, Total; 604774-TCF-B (Total); 257509-Gcwwb LDL-P; 545470-EXZ Size; 209472-GW-CA Scorewas developed and its performance characteristics determinedby [employer]. It has not been cleared or approved by the Foodand Drug Administration.PATIENT WAS FASTINGPERFORMED BY: Declara[address] [id number] BY: [employer] Kluwvv6091 ConfortVisuelLifeCare Hospitals of North [facility] [id number] Lipoprotein.beta.subpar ticle.small [Moles/Vol] 743 nmol/L Abnormal Comprehe nsive Internal Medicine Work Phone: Comment on above: Test(s) 908030-KIP-B ; 438218-JIC-B; 384179-Rnjzkalnhyijm; 252936-Fdsahiwqeto, Total; 696251-ZCJ-T (Total); 458050-Zzizz LDL-P; 757300-OEA Size; 159161-HS-SJ Scorewas developed and its performance characteristics determinedby [employer]. It has not been cleared or approved by the Foodand Drug Administration.PATIENT WAS FASTINGPERFORMED BY: autoGraph [address] [id number] BY: Sigasi70 ConfortVisuelLifeCare Hospitals of [facility] [place] [id number] Triglyceride [Mass/Vol] 179 mg/dL Abnormal 0-149 C ompkettering health springfieldensive Internal Medicine Work Phone: Comment on above: Test(s) 602815-CRS-E ; 705259-MKI-F; 989846-Raytcfcjunzos; 481987-Olegrbrcnob, Total; 825671-BWP-S (Total); 409856-Biolp LDL-P; 222869-TGC Size; 478326-YM-XB Scorewas developed and its performance characteristics determinedby [employer]era. It has not been cleared or approved by the Foodand Drug Administration.PATIENT WAS FASTINGPERFORMED BY: Declara[address] [id number] BY: [employer] Uywavg9202 [address] iCabbiLifeCare Hospitals of North [place] [id number] NMR Profile (78702) 42 mg/dL Normal Compr ehensive Internal Medicine Work Phone: Comment on above: Test(s) 077685-EFP-Y ; 657284-CHM-G; 421703-Jqjlkcxnxuoko; 717268-Fnfvsswmqmz, Total; 510332-KKE-W (Total); 054711-Vkuog LDL-P; 116616-PBO Size; 784743-JM-JN Scorewas developed and its performance characteristics determinedby [employer]. It has not been cleared or approved by the Foodand Drug Administration.PATIENT WAS FASTINGPERFORMED BY: MOMENTFACE SRO[address] [id number] BY: Sigasi70 [facility] [id number] NMR Profile (93718) 104 mg/dL Abnormal 0-99 [facility] Internal Medicine Work Phone: Comment on above: . Optimal < 100 Abov e optimal 100 - 129 Borderline 130 - 159 High 160 - 189 Very high > 189 . Test(s) 352151-NWE-K ; 465480-SHM-B; 378125-Zbaemlerpeafz; 014330-Eqcuewnwvrs, Total; 625901-HHZ-B (Total); 045283-Rlcww LDL-P; 163280-VBC Size; 525671-HV-WM Scorewas developed and its performance characteristics determinedby [employer]. It has not been cleared or approved by the FoodCloudPassage Drug Administration.PATIENT WAS FASTINGPERFORMED BY: MOMENTFACE SRO[address] [id number] BY: [email or web address] [facility] [id number] NMR Profile (15257) 179 mg/dL Abnormal 0-149 [facility]; [facility] Work Phone: NMR Profile (66495) 177 mg/dL Normal 100-199 [facility]; [facility] Work Phone: TSH (17053)Ordered By: Antionette Beaulieu on 11-14-2019 TSH Qn 1.490 {uIU/mL} Normal 0.450-4.50 0 [facility] Work Phone: Comment on above: Test(s) 306343-CPH-L ; 606515-EQA-H; 489020-Hydyuhwiyvwjp; 457532-Wgwxrfrntis, Total; 934115-AXI-D (Total); 909992-Dxbgu LDL-P; 740656-SMM Size; 689883-AT-GW Scorewas developed and its performance characteristics determinedby Sonics. It has not been cleared or approved by the Foodand Drug Administration.PATIENT WAS FASTINGPERFORMED BY: [place] [address] [facility] [id number] BY: [facility]6370 [facility] [id number] HgA1C , Office ([phone])Ordere d By: Mable Ford on 08-16-2019 HbA1c (Bld) [Mass fraction] 5.8 % Normal 4.6 - 7.1 [facility] Work Phone: Blood Glucose , Office ([phone])Ordered By: Mel Le on 04-16-2019 Glucose Glucometer (BldC) [Moles/Vol] 115 1 Normal [facility] Work Phone: HgA1C , Office ([phone])Ordere d By: Mel Le on 04-16-2019 HbA1c (Bld) [Mass fraction] 5.8 % Normal 4.6 - 7.1 [facility] Work Phone: LIPID PANEL (65412)Ordered B y: [employer] Machine Setup Operator on 04-16-2019 Cholesterol [Mass/Vol] 177 mg/dL Normal 100-199 Co mprehensive Internal Medicine Work Phone: Comment on above: PATIENT WAS FASTINGP ERFORMED BY: [facility]6370 [facility] [id number] Cholesterol in HDL [Mass/Vol] 43 mg/dL Normal [facility] Work Phone: Comment on above: PATIENT WAS FASTINGP ERFORMED BY: Sonics Dpkqoe5621 [facility] [id number] Cholesterol in LDL [Mass/Vol] 109 mg/dL Abnormal 0-99 [facility] Work Phone: Comment on above: PATIENT WAS FASTINGP ERFORMED BY: ANCELMO [facility] Kfgzup7813 [facility] [id number] Cholesterol in LDL/Cholesterol in HDL [Mass ratio] 2.5 {ratio} Normal 0.0-3.2 [facility] Work Phone: Comment on above: LDL/HDL Ratio Men Wo men 1/2 Avg.Risk 1.0 1.5 Avg.Risk 3.6 3.2 2X Avg.Risk 6.2 5.0 3X Avg.Risk 8.0 6.1 PATIENT WAS FASTINGP ERFORMED BY: ANCELMO LabCoLourdes Medical Center of Burlington CountyTaffqs5469 [facility] [id number] Cholesterol in VLDL [Mass/Vol] 25 mg/dL Normal 5-40 [facility] Work Phone: Comment on above: PATIENT WAS FASTINGP ERFORMED BY: ANCELMO LabBr[facility]6370 [facility] [id number] Triglyceride [Mass/Vol] 127 mg/dL Normal 0-149 C omprehensive Internal Medicine Work Phone: Comment on above: PATIENT WAS FASTINGP ERFORMED BY: ANCELMO LabBronson Lakeview Hospital6370 [facility] [id number] TSH (14159)Ordered By: [employer]un Pharmaceuticalse [employer] Operating Systems Programmer on 04-16-2019 TSH Qn 1.330 {uIU/mL} Normal 0.450-4.50 0 [facility] Work Phone: Comment on above: PATIENT WAS FASTINGP ERFORMED BY: LabHeart[facility] Kkqslm2982 [facility] [id number] CBC, Platelets & Auto Diff ( 60209)Ordered By: [employer] Machine Setup Operator on 02-09-2019 Basophils (Bld) [#/Vol] 0.0 {x10E3/uL} Normal 0.0-0.2 [facility] Work Phone: Comment on above: PATIENT NOT FASTINGP ERFORMED BY: ANCELMO [facility] Ohaaej4038 [facility] [id number] Basophils (Bld) [#/Vol] 0.0 10*3/uL Normal 0.0-0.2 [facility]; [facility] Work Phone: Comment on above: PATIENT NOT FASTINGP ERFORMED BY: CB [facility] Rrpplf0656 Gil[address] RoadDublin [place] [id number] Basophils/100 WBC (Bld) 0 % Normal C omprehensive Internal Medicine Work Phone: Comment on above: PATIENT NOT FASTINGP ERFORMED BY: CB [facility] Kgdjjm3567 Gil[address] RoadDublin [place] [id number] Eosinophils (Bld) [#/Vol] 0.0 {x10E3/uL} Normal 0.0-0.4 [facility] Work Phone: Comment on above: PATIENT NOT FASTINGP ERFORMED BY: CB [facility] Sgteuh3527 Gil[address] RoadDublin [place] [id number] Eosinophils (Bld) [#/Vol] 0.0 10*3/uL Normal 0.0-0.4 [facility]; [facility] Work Phone: Comment on above: PATIENT NOT FASTINGP ERFORMED BY: CB [facility] Qwsoei2530 Gilman RoadDublin [place] [id number] Eosinophils/100 WBC (Bld) 1 % Normal [facility] Work Phone: Comment on above: PATIENT NOT FASTINGP ERFORMED BY: CB [facility] Shxpnw7464 [address] RoadDublin [place] [id number] Erythrocyte distribution width (RBC) [Ratio] 15.2 % Normal 12.3-15.4 [facility] Work Phone: Comment on above: Effective February 12, 2019, the RDW pediatric reference interval will be removed and the adult reference interval will be changing to: Female 11.7 - 15.4 Male 11.6 - 15.4 PATIENT NOT FASTINGP ERFORMED BY: CB [facility] Ptjbms4886 Gilman RoadDublin [place] [id number] Hematocrit (Bld) [Volume fraction] 39.6 % Normal 34.0-46.6 [facility] Work Phone: Comment on above: PATIENT NOT FASTINGP ERFORMED BY: ANCELMO Birminghamlin6370 [address] RoadDublin [place] [id number] Hemoglobin (Bld) [Mass/Vol] 13.1 g/dL Normal 11.1-15.9 [facility] Work Phone: Comment on above: PATIENT NOT FASTINGP ERFORMED BY: ANCELMO LabCosharon BirminghamZodifk5628 Gilman RoadDublin [place] [id number] Immature granulocytes (Bld) [#/Vol] 0.0 {x10E3/uL} Normal 0.0-0.1 [facility] Work Phone: Comment on above: PATIENT NOT FASTINGP ERFORMED BY: LabEliane Hickman6[address] RoadDublin [place] [id number] Immature granulocytes (Bld) [#/Vol] 0.0 10*3/uL Normal 0.0-0.1 [facility]; [facility] Work Phone: Comment on above: PATIENT NOT FASTINGP ERFORMED BY: Santa Hickman6[address]Dublin [place] [id number] Immature granulocytes/100 WBC (Bld) 0 % Normal [facility] Work Phone: Comment on above: PATIENT NOT FASTINGP ERFORMED BY: Santa Hickman6[address]Dublin [place] [id number] Lymphocytes (Bld) [#/Vol] 1.3 {x10E3/uL} Normal 0.7-3.1 [facility] Work Phone: Comment on above: PATIENT NOT FASTINGP ERFORMED BY: [facility] Wlfdnw9060 [address] RoadDublin [place] [id number] Lymphocytes (Bld) [#/Vol] 1.3 10*3/uL Normal 0.7-3.1 [facility]; [facility] Work Phone: Comment on above: PATIENT NOT FASTINGP ERFORMED BY: [facility] Ioewzj5968 [address] RoadDublin [place] [id number] Lymphocytes/100 WBC (Bld) 24 % Normal [facility] Work Phone: Comment on above: PATIENT NOT FASTINGP ERFORMED BY: CB [facility] Swcwzh3364 [address] RoadDublin [place] [id number] MCH (RBC) [Entitic mass] 31.7 pg Normal 26.6-33.0 [facility] Internal Medicine Work Phone: Comment on above: PATIENT NOT FASTINGP ERFORMED BY: CB [facility] Eadcsx4282 [address] RoadDublin [place] [id number] MCHC (RBC) [Mass/Vol] 33.1 g/dL Normal 31.5-35.7 [facility] Work Phone: Comment on above: PATIENT NOT FASTINGP ERFORMED BY: CB [facility] Ouqxdo3804 [address] RoadDublin [place] [id number] MCV (RBC) [Entitic vol] 96 fL Normal 79-97 [facility] Work Phone: Comment on above: PATIENT NOT FASTINGP ERFORMED BY: CB [facility] Iosmzn6826 [address] RoadDublin [place] [id number] Monocytes (Bld) [#/Vol] 0.4 {x10E3/uL} Normal 0.1-0.9 [facility] Work Phone: Comment on above: PATIENT NOT FASTINGP ERFORMED BY: CB [facility] Fwvumw2424 [address] RoadDublin [place] [id number] Monocytes (Bld) [#/Vol] 0.4 10*3/uL Normal 0.1-0.9 [facility]; [facility] Work Phone: Comment on above: PATIENT NOT FASTINGP ERFORMED BY: CB [facility] Vkkqly8067 [address] RoadDublin [place] [id number] Monocytes/100 WBC (Bld) 6 % Normal [facility] Work Phone: Comment on above: PATIENT NOT FASTINGP ERFORMED BY: CB [facility] Rcbfhg4367 [address] RoadDublin [place] [id number] Neutrophils (Bld) [#/Vol] 3.9 {x10E3/uL} Normal 1.4-7.0 [facility] Work Phone: Comment on above: PATIENT NOT FASTINGP ERFORMED BY: CB [facility] Vmotxy1421 [address] RoadDublin [place] [id number] Neutrophils (Bld) [#/Vol] 3.9 10*3/uL Normal 1.4-7.0 [facility]; [facility] Work Phone: Comment on above: PATIENT NOT FASTINGP ERFORMED BY: CB [facility] Uyskof4648 [address] RoadDublin [place] [id number] Neutrophils/100 WBC (Bld) 69 % Normal [facility] Work Phone: Comment on above: PATIENT NOT FASTINGP ERFORMED BY: CB [facility] Xuiavr0021 [address] RoadDublin [place] [id number] Platelets (Bld) [#/Vol] 355 {x10E3/uL} Normal 150-450 [facility] Work Phone: Comment on above: PATIENT NOT FASTINGP ERFORMED BY: CB [facility] Kkfvlv5580 Gil[address] RoadDublin [place] [id number] Platelets (Bld) [#/Vol] 355 10*3/uL Normal 150-450 [facility]; [facility] Work Phone: Comment on above: PATIENT NOT FASTINGP ERFORMED BY: CB [facility] Lpoqtu8336 Gil[address] RoadDublin [place] [id number] RBC (Bld) [#/Vol] 4.13 {x10E6/uL} Normal 3.77-5.28 [facility] Internal Medicine Work Phone: Comment on above: PATIENT NOT FASTINGP ERFORMED BY: CB [facility] Xhhkwg3723 Gil[address] RoadDublin [place] [id number] RBC (Bld) [#/Vol] 4.13 10*6/uL Normal 3.77-5.28 [facility] Internal Medicine; [facility] Work Phone: Comment on above: PATIENT NOT FASTINGP ERFORMED BY: CB [facility] Yqlsvm0829 [address] RoadDublin [place] [id number] WBC (Bld) [#/Vol] 5.7 {x10E3/uL} Normal 3.4-10.8 [facility] prehensive Internal Medicine Work Phone: Comment on above: PATIENT NOT FASTINGP ERFORMED BY: ANCELMO Manzo Kzohja2639 [facility] [id number] WBC (Bld) [#/Vol] 5.7 10*3/uL Normal 3.4-10.8 [facility] Internal Medicine; [facility] Internal Medicine Work Phone: Comment on above: PATIENT NOT FASTINGP ERFORMED BY: ANCELMO [facility] Hwblmd8753 [facility] [id number] Metabolic Panel, Comprehensi ve ([id number])Ordered By: [employer] Setup Operator on 02-09-2019 Albumin [Mass/Vol] 4.3 g/dL Normal 3.6-4.8 [facility] Internal Medicine Work Phone: Comment on above: Effective February 26, 2019 Albumin reference interval will be changing to: Age Male Female 0 - 7 days 3.6 - 4.9 3.6 - 4.9 8 - 30 days 3.4 - 4.7 3.4 - 4.7 1 - 6 month 3.7 - 4.8 3.7 - 4.8 7 months - 2 years 3.9 - 5.0 3.9 - 5.0 3 - 5 years 4.0 - 5.0 4.0 - 5.0 6 - 12 years 4.1 - 5.0 4.0 - 5.0 13 - 30 years 4.1 - 5.2 3.9 - 5.0 31 - 50 years 4.0 - 5.0 3.8 - 4.8 51 - 60 years 3.8 - 4.9 3.8 - 4.9 61 - 70 years 3.8 - 4.8 3.8 - 4.8 71 - 80 years 3.7 - 4.7 3.7 - 4.7 81 - 89 years 3.6 - 4.6 3.6 - 4.6 >89 years 3.5 - 4.6 3.5 - 4.6 PATIENT NOT FASTINGP ERFORMED BY: ANCELMO [facility] Vcmfcw7041 [facility] [id number] Albumin/Globulin [Mass ratio] 2.0 {ratio} Normal 1.2-2.2 [facility] Work Phone: Comment on above: PATIENT NOT FASTINGP ERFORMED BY: ANCELMO [facility] Lihret5065 Gilman RoadDublin [place] [id number] ALP [Catalytic activity/Vol] 91 [iU]/L Normal 39-117 [facility] Work Phone: Comment on above: PATIENT NOT FASTINGP ERFORMED BY: CB [facility] Jgtidk4877 [address] RoadDublin [place] [id number] ALP [Catalytic activity/Vol] 91 U/L Normal 39-117 [facility]; [facility] Work Phone: Comment on above: PATIENT NOT FASTINGP ERFORMED BY: ANCELMO [facility] Yjowfx9993 Gil[address] RoadDublin [place] [id number] ALT [Catalytic activity/Vol] 16 [iU]/L Normal 0-32 [facility] Work Phone: Comment on above: PATIENT NOT FASTINGP ERFORMED BY: CB [facility] Gsprdh4376 [address] RoadDublin [place] [id number] ALT [Catalytic activity/Vol] 16 U/L Normal 0-32 [facility]; [facility] Work Phone: Comment on above: PATIENT NOT FASTINGP ERFORMED BY: ANCELMO [facility] Wltgjx0855 Gil[address] RoadDublin [place] [id number] AST [Catalytic activity/Vol] 16 [iU]/L Normal 0-40 [facility] Work Phone: Comment on above: PATIENT NOT FASTINGP ERFORMED BY: CB [facility] Hmrbdh1874 [address] RoadDublin [place] [id number] AST [Catalytic activity/Vol] 16 U/L Normal 0-40 [facility]; [facility] Work Phone: Comment on above: PATIENT NOT FASTINGP ERFORMED BY: CB [facility] Olnrvd1598 [address] RoadDublin [place] [id number] Bilirubin [Mass/Vol] mg/dL Normal 0.0-1.2 Comp [facility] Work Phone: Comment on above: PATIENT NOT FASTINGP ERFORMED BY: CB [facility] Qqkucq5684 [address] RoadDublin [place] [id number] Bilirubin [Mass/Vol] mg/dL Normal 0.0-1.2 Comp rehensive Internal Medicine; [facility] Work Phone: Comment on above: PATIENT NOT FASTINGP ERFORMED BY: CB [facility] Jvevte1281 [address] RoadDublin [place] [id number] Calcium [Mass/Vol] 9.1 mg/dL Normal 8.7-10.3 [facility] Internal Medicine Work Phone: Comment on above: PATIENT NOT FASTINGP ERFORMED BY: CB [facility] Ikcobt8753 [address] RoadDublin [place] [id number] Chloride [Moles/Vol] 104 mmol/L Normal 96-106 [facility] Work Phone: Comment on above: PATIENT NOT FASTINGP ERFORMED BY: CB [facility] Cuofld2129 [address] RoadDublin [place] [id number] CO2 [Moles/Vol] 23 mmol/L Normal 20-29 [facility] Internal Medicine Work Phone: Comment on above: PATIENT NOT FASTINGP ERFORMED BY: CB [facility] Xquzua4249 [address] RoadDublin [place] [id number] Creatinine [Mass/Vol] 0.92 mg/dL Normal 0.57-1.00 [facility] Work Phone: Comment on above: PATIENT NOT FASTINGP ERFORMED BY: CB [facility] Ejxqba2929 [address] RoadDublin [place] [id number] GFR/1.73 sq M predicted among blacks CKD-EPI (S/P/Bld) [Vol rate/Area] 76 mL/min/1.73 Normal [facility] Work Phone: Comment on above: PATIENT NOT FASTINGP ERFORMED BY: CB [facility] Czewnl1789 [address] RoadDublin [place] [id number] GFR/1.73 sq M predicted among non-blacks CKD-EPI (S/P/Bld) [Vol rate/Area] 66 mL/min/1.73 Normal [facility] Internal Medicine Work Phone: Comment on above: PATIENT NOT FASTINGP ERFORMED BY: CB [facility] Qiyeho3247 Gil[address] RoadDublin [place] [id number] Globulin (S) [Mass/Vol] 2.2 g/dL Normal 1.5-4.5 [facility] Work Phone: Comment on above: PATIENT NOT FASTINGP ERFORMED BY: CB [facility] Sfomtt5536 [address] RoadDublin [place] [id number] Glucose [Mass/Vol] 94 mg/dL Normal 65-99 [facility] Internal Medicine Work Phone: Comment on above: PATIENT NOT FASTINGP ERFORMED BY: CB [facility] Whseay9540 [address] RoadDublin [place] [id number] Potassium [Moles/Vol] 4.4 mmol/L Normal 3.5-5.2 [facility] Internal Medicine Work Phone: Comment on above: PATIENT NOT FASTINGP ERFORMED BY: CB [facility] Qrpacn1864 [address] RoadDublin [place] [id number] Protein [Mass/Vol] 6.5 g/dL Normal 6.0-8.5 [facility] Internal Medicine Work Phone: Comment on above: PATIENT NOT FASTINGP ERFORMED BY: CB [facility] Dqxxak9742 [address] RoadDublin [place] [id number] Sodium [Moles/Vol] 142 mmol/L Normal 134-144 [facility] Internal Medicine Work Phone: Comment on above: PATIENT NOT FASTINGP ERFORMED BY: CB [facility] Nfejnq3425 [address] RoadDublin [place] [id number] Urea nitrogen [Mass/Vol] 9 mg/dL Normal 8-27 [facility] Internal Medicine Work Phone: Comment on above: PATIENT NOT FASTINGP ERFORMED BY: CB [facility] Inahmn3927 Gil[address] RoadDublin [place] [id number] Urea nitrogen/Creatinine [Mass ratio] 10 mg/mg Abnormal 12-28 [facility] Work Phone: Comment on above: PATIENT NOT FASTINGP ERFORMED BY: ANCELMO [facility] Lgprzb1355 [address] [facility] [id number] TSH (THYROID STIMULATING HOR BENJI) (20109)Ordered By: [employer] Setup Operator on 02-09-2019 TSH Qn 1.280 {uIU/mL} Normal 0.450-4.50 0 [facility] Work Phone: Comment on above: PATIENT NOT FASTINGP ERFORMED BY: ANCELMO [facility] Rfqnbj2057 [facility] [id number] Blood Glucose , Office ([phone])Ordered By: Viviana Strickland on 08-16-2018 Glucose Glucometer (BldC) [Moles/Vol] 100 1 Normal [facility] Work Phone: HgA1C , Office ([phone])Ordere d By: Viviana Strickland on 08-16-2018 HbA1c (Bld) [Mass fraction] 5.7 % Normal 4.6 - 7.1 [facility] Work Phone: CBC W/AUTO DIFF WBC (23979)O rdered By: [employer] Setup Operator on 06-13-2018 Basophils (Bld) [#/Vol] 0.1 {x10E3/uL} Normal 0.0-0.2 [facility] Work Phone: Comment on above: PATIENT WAS FASTINGP ERFORMED BY: [facility] [id number] BY: ANCELMO [facility] Pgfawo8644 [facility] [id number] Basophils (Bld) [#/Vol] 0.1 10*3/uL Normal 0.0-0.2 [facility]; [facility] Work Phone: Comment on above: PATIENT WAS FASTINGP ERFORMED BY: [facility] [address] [id number] BY: ANCELMO [facility] Orcqzn5819 [facility] [id number] Basophils/100 WBC (Bld) 1 % Normal C omprehensive Internal Medicine Work Phone: Comment on above: PATIENT WAS FASTINGP ERFORMED BY: LabCo[address] [id number] BY: [facility] Djufhr8320 Gil[address] RoadDublin [place] [id number] Eosinophils (Bld) [#/Vol] 0.2 {x10E3/uL} Normal 0.0-0.4 [facility] Work Phone: Comment on above: PATIENT WAS FASTINGP ERFORMED BY: [facility] [address] [id number] BY: [facility] Ntceqs3616 [address] RoadDublin [place] [id number] Eosinophils (Bld) [#/Vol] 0.2 10*3/uL Normal 0.0-0.4 [facility]; [facility] Work Phone: Comment on above: PATIENT WAS FASTINGP ERFORMED BY: LabCo[address] [id number] BY: [facility] Wiyzam0681 Gilman RoadDuin [place] [id number] Eosinophils/100 WBC (Bld) 2 % Normal [facility] Work Phone: Comment on above: PATIENT WAS FASTINGP ERFORMED BY: [facility] [address] [id number] BY: [facility] Tdxabd5[address] [facility]in [place] [id number] Erythrocyte distribution width (RBC) [Ratio] 15.5 % Abnormal 12.3-15.4 [facility] Work Phone: Comment on above: PATIENT WAS FASTINGP ERFORMED BY: [facility] [address] [id number] BY: [facility] Emnnlz4421 [address] [facility]in [place] [id number] Hematocrit (Bld) [Volume fraction] 39.3 % Normal 34.0-46.6 [facility] Work Phone: Comment on above: PATIENT WAS FASTINGP ERFORMED BY: [address] [id number] BY: [facility] Otkfpt8678 [address] [facility] [id number] Hemoglobin (Bld) [Mass/Vol] 12.6 g/dL Normal 11.1-15.9 [facility] Work Phone: Comment on above: PATIENT WAS FASTINGP ERFORMED BY: [address] [id number] BY: [place] [id number] [facility] [id number] Immature granulocytes (Bld) [#/Vol] 0.0 {x10E3/uL} Normal 0.0-0.1 [facility] Work Phone: Comment on above: PATIENT WAS FASTINGP ERFORMED BY: [address] [id number] BY: [facility]6370 [facility] [id number] Immature granulocytes (Bld) [#/Vol] 0.0 10*3/uL Normal 0.0-0.1 [facility]; [facility] Work Phone: Comment on above: PATIENT WAS FASTINGP ERFORMED BY: [address] [id number] BY: [facility]6370 [facility] [id number] Immature granulocytes/100 WBC (Bld) 0 % Normal [facility] Work Phone: Comment on above: PATIENT WAS FASTINGP ERFORMED BY: [address] [id number] BY: [place] 7567870 [facility] [id number] Lymphocytes (Bld) [#/Vol] 2.6 {x10E3/uL} Normal 0.7-3.1 [facility] Work Phone: Comment on above: PATIENT WAS FASTINGP ERFORMED BY: BN Lab[address] [id number] BY: ANCELMO [facility] Ucirfh4878 [facility] [id number] Lymphocytes (Bld) [#/Vol] 2.6 10*3/uL Normal 0.7-3.1 [facility]; [facility] Work Phone: Comment on above: PATIENT WAS FASTINGP ERFORMED BY: Lab[address] [id number] BY: ANCELMO [facility] Zoktip7246 [facility] [id number] Lymphocytes/100 WBC (Bld) 36 % Normal [facility] Work Phone: Comment on above: PATIENT WAS FASTINGP ERFORMED BY: [address] [id number] BY: ANCELMO [facility] Hpukyi2785 [facility] [id number] MCH (RBC) [Entitic mass] 30.1 pg Normal 26.6-33.0 [facility] Internal Medicine Work Phone: Comment on above: PATIENT WAS FASTINGP ERFORMED BY: [address] [id number] BY: ANCELMO [facility] Amzspy7297 [facility] [id number] MCHC (RBC) [Mass/Vol] 32.1 g/dL Normal 31.5-35.7 [facility] Work Phone: Comment on above: PATIENT WAS FASTINGP ERFORMED BY: [address] [id number] BY: [facility]6370 [facility] [id number] MCV (RBC) [Entitic vol] 94 fL Normal 79-97 C ompkettering health springfieldensive Internal Medicine Work Phone: Comment on above: PATIENT WAS FASTINGP ERFORMED BY: [address] [id number] BY: ANCELMO [facility] Wkohvr1736 [address] RoadDublin [place] [id number] Monocytes (Bld) [#/Vol] 0.6 {x10E3/uL} Normal 0.1-0.9 [facility] Work Phone: Comment on above: PATIENT WAS FASTINGP ERFORMED BY: Lab[address] [id number] BY: ANCELMO [facility] Hmggln0549 [address] RoadDublin [place] [id number] Monocytes (Bld) [#/Vol] 0.6 10*3/uL Normal 0.1-0.9 [facility]; [facility] Work Phone: Comment on above: PATIENT WAS FASTINGP ERFORMED BY: [address] [id number] BY: ANCELMO [facility] Gnjmgg0153 [address] RoadDublin [place] [id number] Monocytes/100 WBC (Bld) 9 % Normal C omprehensive Internal Medicine Work Phone: Comment on above: PATIENT WAS FASTINGP ERFORMED BY: [address] [id number] BY: [facility] Ivginb7160 [address] RoadDublin [place] [id number] Neutrophils (Bld) [#/Vol] 3.7 {x10E3/uL} Normal 1.4-7.0 [facility] Work Phone: Comment on above: PATIENT WAS FASTINGP ERFORMED BY: [address] [id number] BY: [facility] Jjrpyy8381 [address] RoadDublin [place] [id number] Neutrophils (Bld) [#/Vol] 3.7 10*3/uL Normal 1.4-7.0 [facility]; [facility] Work Phone: Comment on above: PATIENT WAS FASTINGP ERFORMED BY: Lab[address] [id number] BY: ANCELMO [facility] Hdncki2294 [address] [facility]in [place] [id number] Neutrophils/100 WBC (Bld) 52 % Normal [facility] Work Phone: Comment on above: PATIENT WAS FASTINGP ERFORMED BY: JEANNINE [employer] IICosharon Ptukeozyzp4712 [facility] [id number] BY: ANCELMO LabCosharon BirminghamWynlnr1088 [address] [facility]in [place] [id number] Platelets (Bld) [#/Vol] 420 {x10E3/uL} Abnormal 150-379 [facility] Work Phone: Comment on above: Effective June 26, 2018 the reference interval for Platelets will be changing to: 0 - 7 d 140 - 396 x10E3/uL 8 - 30 d 139 - 531 x10E3/uL 31 d - 999 yrs 150 - 450 x10E3/uL PATIENT WAS FASTINGP ERFORMED BY: JEANNINE SonicsJesse V[place] 464497 [facility] [id number] BY: ANCELMO [facility] Psukfr5343 [facility] [id number] Platelets (Bld) [#/Vol] 420 10*3/uL Abnormal 150-379 [facility]; [facility] Work Phone: Comment on above: Effective June 26, 2018 the reference interval for Platelets will be changing to: 0 - 7 d 140 - 396 x10E3/uL 8 - 30 d 139 - 531 x10E3/uL 31 d - 999 yrs 150 - 450 x10E3/uL PATIENT WAS FASTINGP ERFORMED BY: JEANNINE SonicsCap[facility])Vfeilagbjq6625 [facility] [id number] BY: ANCELMO [facility] Hwymvk7558 [facility] [id number] RBC (Bld) [#/Vol] 4.19 {x10E6/uL} Normal 3.77-5.28 [facility] Internal Medicine Work Phone: Comment on above: PATIENT WAS FASTINGP ERFORMED BY: JEANNINE [employer]ics[address] [id number] BY: [facility]6370 [address] [facility] [id number] RBC (Bld) [#/Vol] 4.19 10*6/uL Normal 3.77-5.28 [facility]; [facility] Work Phone: Comment on above: PATIENT WAS FASTINGP ERFORMED BY: [address] [id number] BY: [facility]6370 [facility] [id number] WBC (Bld) [#/Vol] 7.2 {x10E3/uL} Normal 3.4-10.8 [facility] Internal Medicine Work Phone: Comment on above: PATIENT WAS FASTINGP ERFORMED BY: [address] [id number] BY: [place] [id number] [facility] [id number] WBC (Bld) [#/Vol] 7.2 10*3/uL Normal 3.4-10.8 [facility] Internal Medicine; [facility] Work Phone: Comment on above: PATIENT WAS FASTINGP ERFORMED BY: [address] [id number] BY: [facility]6370 [facility] [id number] METABOLIC PANEL, COMPREHENSI VE ([id number])Ordered By: [employer] Setup Operator on 06-13-2018 Albumin [Mass/Vol] 4.3 g/dL Normal 3.6-4.8 [facility] Internal Medicine Work Phone: Comment on above: PATIENT WAS FASTINGP ERFORMED BY: [address] [id number] BY: [facility]6370 [facility] [id number] Albumin/Globulin [Mass ratio] 1.7 {ratio} Normal 1.2-2.2 [facility] Internal Medicine Work Phone: Comment on above: PATIENT WAS FASTINGP ERFORMED BY: [facility] [address] [id number] BY: ANCELMO [facility] Kngxpi7534 Gilman RoadDublin [place] [id number] ALP [Catalytic activity/Vol] 105 [iU]/L Normal 39-117 [facility] Work Phone: Comment on above: PATIENT WAS FASTINGP ERFORMED BY: [facility] [address] [id number] BY: ANCELMO [facility] Dpytxo6777 Gilman RoadDublin [place] [id number] ALP [Catalytic activity/Vol] 105 U/L Normal 39-117 [facility]; [facility] Work Phone: Comment on above: PATIENT WAS FASTINGP ERFORMED BY: [facility] [id number] BY: ANCELMO [facility] Zccnqe0080 [address] RoadDublin [place] [id number] ALT [Catalytic activity/Vol] 23 [iU]/L Normal 0-32 [facility] Work Phone: Comment on above: PATIENT WAS FASTINGP ERFORMED BY: Lab[address] [id number] BY: ANCELMO [facility] Ttwzwv8489 [address] RoadDublin [place] [id number] ALT [Catalytic activity/Vol] 23 U/L Normal 0-32 [facility]; [facility] Work Phone: Comment on above: PATIENT WAS FASTINGP ERFORMED BY: [facility] [id number] BY: [facility] Lsrikm8087 [address] RoadDublin [place] [id number] AST [Catalytic activity/Vol] 25 [iU]/L Normal 0-40 [facility] Work Phone: Comment on above: PATIENT WAS FASTINGP ERFORMED BY: [facility]Co[address] [id number] BY: [facility] Yzmwuk2681 [address] RoadDublin [place] [id number] AST [Catalytic activity/Vol] 25 U/L Normal 0-40 [facility]; [facility] Work Phone: Comment on above: PATIENT WAS FASTINGP ERFORMED BY: Lab[address] [id number] BY: [facility] Ttcuwv5979 [address] RoadDublin [place] [id number] Bilirubin [Mass/Vol] 0.3 mg/dL Normal 0.0-1.2 Comp rehensive Internal Medicine Work Phone: Comment on above: PATIENT WAS FASTINGP ERFORMED BY: [address] [id number] BY: [facility] Egrfev6007 [address] RoadDublin [place] [id number] Calcium [Mass/Vol] 9.2 mg/dL Normal 8.7-10.3 [facility] Internal Medicine Work Phone: Comment on above: PATIENT WAS FASTINGP ERFORMED BY: [address] [id number] BY: [facility] Vthlnj7183 [address] RoadDublin [place] [id number] Chloride [Moles/Vol] 105 mmol/L Normal 96-106 Comp [facility] Work Phone: Comment on above: PATIENT WAS FASTINGP ERFORMED BY: Lab[address] [id number] BY: [facility] Bjttpy2659 [address] RoadDublin [place] [id number] CO2 [Moles/Vol] 20 mmol/L Normal 20-29 [facility] Internal Medicine Work Phone: Comment on above: PATIENT WAS FASTINGP ERFORMED BY: [address] [id number] BY: [facility] Emzbxi8159 [address] RoadDublin [place] [id number] Creatinine [Mass/Vol] 0.94 mg/dL Normal 0.57-1.00 Com [facility] Work Phone: Comment on above: PATIENT WAS FASTINGP ERFORMED BY: LabCo[address] [id number] BY: ANCELMO [facility] Akooen7504 [address] RoadDuin [place] [id number] GFR/1.73 sq M predicted among blacks CKD-EPI (S/P/Bld) [Vol rate/Area] 74 mL/min/1.73 Normal [facility] Work Phone: Comment on above: PATIENT WAS FASTINGP ERFORMED BY: [facility] [id number] BY: ANECLMO [facility] Dbnscb6634 [facility] [id number] GFR/1.73 sq M predicted among non-blacks CKD-EPI (S/P/Bld) [Vol rate/Area] 64 mL/min/1.73 Normal [facility] Work Phone: Comment on above: PATIENT WAS FASTINGP ERFORMED BY: [facility] [address] [id number] BY: ANCELMO [facility] Usjpwc1253 [facility] [id number] Globulin (S) [Mass/Vol] 2.6 g/dL Normal 1.5-4.5 [facility] Work Phone: Comment on above: PATIENT WAS FASTINGP ERFORMED BY: [facility] [address] [id number] BY: [facility] Brkeed1966 [facility] [id number] Glucose [Mass/Vol] 95 mg/dL Normal 65-99 [facility] Internal Medicine Work Phone: Comment on above: PATIENT WAS FASTINGP ERFORMED BY: [facility] [address] [id number] BY: ANCELMO [facility] Koxzob0145 [address] RoadDublin [place] [id number] Potassium [Moles/Vol] 4.4 mmol/L Normal 3.5-5.2 [facility] Internal Medicine Work Phone: Comment on above: PATIENT WAS FASTINGP ERFORMED BY: [facility] Rdplavcftl[address] [id number] BY: ANCELMO [facility] Eapncl9702 [address] RoadDublin [place] [id number] Protein [Mass/Vol] 6.9 g/dL Normal 6.0-8.5 [facility] Internal Medicine Work Phone: Comment on above: PATIENT WAS FASTINGP ERFORMED BY: [facility] [address] [id number] BY: ANCELMO [facility] Hujrhy4935 [address] RoadDublin [place] [id number] Sodium [Moles/Vol] 143 mmol/L Normal 134-144 [facility] Internal Medicine Work Phone: Comment on above: PATIENT WAS FASTINGP ERFORMED BY: [facility] [address] [id number] BY: ANCELMO [facility] Ssfbng0627 [address] RoadDublin [place] [id number] Urea nitrogen [Mass/Vol] 14 mg/dL Normal 8- [facility] Internal Medicine Work Phone: Comment on above: PATIENT WAS FASTINGP ERFORMED BY: [facility] [address] [id number] BY: ANCELMO [facility] Fpdwba9640 [address] RoadDublin [place] [id number] Urea nitrogen/Creatinine [Mass ratio] 15 mg/mg Normal 12-28 [facility] Work Phone: Comment on above: PATIENT WAS FASTINGP ERFORMED BY: [facility] [address] [id number] BY: ANCELMO [facility] Dvrpvf8636 Gilman RoadDublin [place] [id number] NMR Profile (29689)Ordered B y: Rotor Casting Machine Setup Operator on 06-13-2018 Cholesterol [Mass/Vol] 150 mg/dL Normal 100-199 Co mprehensive Internal Medicine Work Phone: Comment on above: PATIENT WAS FASTINGP ERFORMED BY: [employer] [facility] [id number] BY: CB LabCoInternational Stem Cell Corporation70 GilmanHarry [facility] [id number] Lipoprotein.alpha [Moles/Vol] 26.4 umol/L Abnormal [facility] Work Phone: Comment on above: PATIENT WAS FASTINGP ERFORMED BY: [employer] LabIMVU [facility] [id number] BY: LabDunamuox iCabbiLifeCare Hospitals of [facility] [id number] Lipoprotein.beta.subpar ticle [Entitic length] 20.9 nm Normal Comprehen [facility] Internal Medicine Work Phone: Comment on above: INTERPRETATIVE INFORMATION PARTICLE CONCENTRATION AND SIZE <--Lower CVD Risk Higher CVD Risk--> LDL AND HDL PARTICLES Percentile in Reference Population HDL-P (total) High 75th 50th 25th Low >34.9 34.9 30.5 26.7 <26.7 . Small LDL-P Low 25th 50th 75th High <117 117 527 839 >839 . LDL Size <-Large (Pattern A)-> <-Small (Pattern B)-> 23.0 20.6 20.5 19.0 Smal l LDL-P and LDL Size are associated with CVD risk, but not afterLDL-P is taken into account. .These assays were developed and their performance characteristicsdetermined by [employer]. These assays have not been cleared by [place] Food and Drug Administration. The clinical utility of theselaboratory values have not been fully established. PATIENT WAS FASTINGP ERFORMED BY: Lab[address] [id number] BY: [facility] Owltqh9588 Gilman RoadDublin [place] [id number] Lipoprotein.beta.subpar ticle [Moles/Vol] 1552 nmol/L Abnormal [facility] Work Phone: Comment on above: Low < 1000 Moderate 1000 - 1299 Borderline-High 1300 - 1599 High 1600 - 2000 Very High > 2000 PATIENT WAS FASTINGP ERFORMED BY: [address] [id number] BY: [facility] Roobkr6591 Gilman RoadDublin [place] [id number] Lipoprotein.beta.subpar ticle.small [Moles/Vol] 911 nmol/L Abnormal Comprehe nsive Internal Medicine Work Phone: Comment on above: PATIENT WAS FASTINGP ERFORMED BY: [address] [id number] BY: [facility] Hbkvai3509 Gilman RoadDublin [place] [id number] Triglyceride [Mass/Vol] 101 mg/dL Normal 0-149 C omprehensive Internal Medicine Work Phone: Comment on above: PATIENT WAS FASTINGP ERFORMED BY: [address] [id number] BY: [facility] Vvyxuc4976 Gilman RoadDublin [place] [id number] NMR Profile (72014) 35 mg/dL Abnormal Compr ensive Internal Medicine Work Phone: Comment on above: PATIENT WAS FASTINGP ERFORMED BY: [address] [id number] BY: [facility] Khqhql6661 Gilman RoadDublin [place] [id number] NMR Profile (41212) 95 mg/dL Normal 0-99 Compr ehensive Internal Medicine Work Phone: Comment on above: . Optimal < 100 Abov e optimal 100 - 129 Borderline 130 - 159 High 160 - 189 Very high > 189 .LDL-C is inaccurate if patient is non-fasting. PATIENT WAS FASTINGP ERFORMED BY: GlobalCrypto1447 [facility] [id number] BY: iJigg.com6370 [facility] [id number] NMR Profile (19079) 101 mg/dL Normal 0-149 Compr ehensive Internal Medicine; [facility] Work Phone: NMR Profile (82453) 150 mg/dL Normal 100-199 Compr ehensive Internal Medicine; [facility] Work Phone: TSH (48924)Ordered By: Antionette Beaulieu on 06-13-2018 TSH Qn 2.200 {uIU/mL} Normal 0.450-4.50 0 [facility] Work Phone: Comment on above: PATIENT WAS FASTINGP ERFORMED BY: GlobalCrypto1447 [facility] [id number] BY: iJigg.com6370 [facility] [id number] Blood Glucose , Office (8296 2)Ordered By: Munira Crespo on 05-17-2018 Glucose Glucometer molar conc (BldC) 96 1 Normal [facility] Work Phone: HgA1C , Office ([phone])Ordere d By: Munira Crespo on 05-17-2018 Hemoglobin A1c/Hemoglobin.total mass fraction (Bld) 5.9 % Normal 4.6 - 7.1 Comprehensiv e Internal Medicine Work Phone: Blood Glucose , Office (8296 2)Ordered By: Munira Crespo on 12-21-2017 Glucose Glucometer molar conc (BldC) 102 1 Normal [facility] Work Phone: HgA1C , Office (75306)Ordere d By: Mable Ford on 12-21-2017 Hemoglobin A1c/Hemoglobin.total mass fraction (Bld) 5.7 % Normal 4.6 - 7.1 Comprehensiv e Internal Medicine Work Phone: Blood Glucose , Office (8296 2)Ordered By: Munira Crespo on 08-18-2017 Glucose Glucometer molar conc (BldC) 97 1 Normal [facility] Work Phone: CBC W/AUTO DIFF WBC (02819)O rdered By: Rotor Casting Machine Setup Operator on 08-18-2017 Basophils (Bld) [#/Vol] 0.1 {x10E3/uL} Normal 0.0-0.2 [facility] Work Phone: Comment on above: A courtesy copy of t his report has been sent [phone].PATIENT WAS FASTINGPERFORMED BY: MOMENTFACE SROAaron [place]ille [id number] BY: Intelligent Clearing NetworkHighlands-Cashiers Hospital [id number] Basophils (Bld) [#/Vol] 0.1 10*3/uL Normal 0.0-0.2 [facility]; [facility] Work Phone: Comment on above: A courtesy copy of t his report has been sent [phone].PATIENT WAS FASTINGPERFORMED BY: autoGraph [place] [id number] BY: FOLUPox KymabHighlands-Cashiers Hospital [id number] Basophils Auto #/vol (Bld) 0.1 {x10E3/uL} Normal 0.0-0.2 [facility] Work Phone: Basophils/100 WBC (Bld) 1 % Normal C omprehensive Internal Medicine Work Phone: Comment on above: A courtesy copy of t his report has been sent [phone].PATIENT WAS FASTINGPERFORMED BY: autoGraph [address] [id number] BY: Shareholder InSitelin[address] [place] [address] [id number] Basophils/100 WBC Auto (Bld) 1 % Normal [facility] Work Phone: Eosinophils (Bld) [#/Vol] 0.1 {x10E3/uL} Normal 0.0-0.4 [facility] Work Phone: Comment on above: A courtesy copy of t his report has been sent [phone].PATIENT WAS FASTINGPERFORMED BY: MOMENTFACE SRO[address] [id number] BY: SonicsLourdes Medical Center of Burlington CountyHckzlp[address] [place] [address] [id number] Eosinophils (Bld) [#/Vol] 0.1 10*3/uL Normal 0.0-0.4 [facility]; [facility] Work Phone: Comment on above: A courtesy copy of t his report has been sent [phone].PATIENT WAS FASTINGPERFORMED BY: MOMENTFACE SRO[address] [id number] BY: [employer] [id number] Eosinophils Auto #/vol (Bld) 0.1 {x10E3/uL} Normal 0.0-0.4 [facility] Work Phone: Eosinophils/100 WBC (Bld) 2 % Normal [facility] Work Phone: Comment on above: A courtesy copy of t his report has been sent [phone].PATIENT WAS FASTINGPERFORMED BY: [employer] [address] [id number] BY: SonicsVictor [place] 7179570 [facility] [id number] Eosinophils/100 WBC Auto (Bld) 2 % Normal [facility] Work Phone: Erythrocyte distribution width (RBC) [Ratio] 15.4 % Normal 12.3-15.4 [facility] Work Phone: Comment on above: A courtesy copy of t his report has been sent [phone].PATIENT WAS FASTINGPERFORMED BY: Sonics Hxlcfhcmbs[address] [id number] BY: SonicsLourdes Medical Center of Burlington CountyOchzkh2738 [facility] [id number] Erythrocyte distribution width Auto Ratio (RBC) 15.4 % Normal 12.3-15.4 [facility] Work Phone: Hematocrit (Bld) [Volume fraction] 38.9 % Normal 34.0-46.6 [facility] Work Phone: Comment on above: A courtesy copy of t his report has been sent [phone].PATIENT WAS FASTINGPERFORMED BY: autoGraph [address] [id number] BY: [employer] Kpjcwg9852 [facility] [id number] Hematocrit Auto Volume Fraction (Bld) 38.9 % Normal 34.0-46.6 [facility] Work Phone: Hemoglobin mass conc (Bld) 12.5 g/dL Normal 11.1-15.9 [facility] Work Phone: Comment on above: A courtesy copy of t his report has been sent [phone].PATIENT WAS FASTINGPERFORMED BY: Sonics[address] [id number] BY: SonicsVictor [place] 7179570 [facility] [id number] Immature granulocytes #/vol (Bld) 0.0 {x10E3/uL} Normal 0.0-0.1 [facility] Work Phone: Comment on above: A courtesy copy of t his report has been sent [phone].PATIENT WAS FASTINGPERFORMED BY: Sonics[address] [id number] BY: SonicsVictor [place] 7179570 [facility] [id number] Immature granulocytes (Bld) [#/Vol] 0.0 10*3/uL Normal 0.0-0.1 [facility]; [facility] Work Phone: Comment on above: A courtesy copy of t his report has been sent [phone].PATIENT WAS FASTINGPERFORMED BY: [employer] II[address] [id number] BY: [facility] NorthCloneVictor Ville 7179570 [facility] [id number] Immature granulocytes/100 WBC (Bld) 0 % Normal [facility] Work Phone: Comment on above: A courtesy copy of t his report has been sent [phone].PATIENT WAS FASTINGPERFORMED BY: Sonics[address] [id number] BY: Sonics Togkmi4802 [facility] [id number] Lymphocytes (Bld) [#/Vol] 2.7 {x10E3/uL} Normal 0.7-3.1 [facility] Work Phone: Comment on above: A courtesy copy of t his report has been sent [phone].PATIENT WAS FASTINGPERFORMED BY: Sonics[address] [id number] BY: SonicsVictor [place] 7179570 [facility] [id number] Lymphocytes (Bld) [#/Vol] 2.7 10*3/uL Normal 0.7-3.1 [facility]; [facility] Work Phone: Comment on above: A courtesy copy of t his report has been sent [phone].PATIENT WAS FASTINGPERFORMED BY: [employer] [address] [id number] BY: [employer] IICarl [place] 3852670 [facility] [id number] Lymphocytes Auto #/vol (Bld) 2.7 {x10E3/uL} Normal 0.7-3.1 [facility] Work Phone: Lymphocytes/100 WBC (Bld) 30 % Normal [facility] Work Phone: Comment on above: A courtesy copy of t his report has been sent [phone].PATIENT WAS FASTINGPERFORMED BY: Sonics Tknlptwggr[address] [id number] BY: SonicsVictor [place] 7179570 [facility] [id number] Lymphocytes/100 WBC Auto (Bld) 30 % Normal [facility] Work Phone: MCH (RBC) [Entitic mass] 30.3 pg Normal 26.6-33.0 [facility] Work Phone: Comment on above: A courtesy copy of t his report has been sent [phone].PATIENT WAS FASTINGPERFORMED BY: [employer] [address] [id number] BY: SonicsVictor [place] 7179570 [facility] [id number] MCH Auto Entitic mass (RBC) 30.3 pg Normal 26.6-33.0 [facility] Work Phone: MCHC (RBC) [Mass/Vol] 32.1 g/dL Normal 31.5-35.7 Com prehensive Internal Medicine Work Phone: Comment on above: A courtesy copy of t his report has been sent [phone].PATIENT WAS FASTINGPERFORMED BY: Sonics[address] [id number] BY: [facility] NorthCloneVictor Ville 7179570 [facility] [id number] MCHC Auto mass conc (RBC) 32.1 g/dL Normal 31.5-35.7 [facility] Work Phone: MCV (RBC) [Entitic vol] 94 fL Normal 79-97 C omprehensive Internal Medicine Work Phone: Comment on above: A courtesy copy of t his report has been sent [phone].PATIENT WAS FASTINGPERFORMED BY: Sonics[address] [id number] BY: [employer] IICarl [place] 3852670 [facility] [id number] MCV Auto Entitic volume (RBC) 94 fL Normal 79-97 [facility] Work Phone: Monocytes (Bld) [#/Vol] 0.5 {x10E3/uL} Normal 0.1-0.9 [facility] Work Phone: Comment on above: A courtesy copy of t his report has been sent [phone].PATIENT WAS FASTINGPERFORMED BY: [employer] [address] [id number] BY: [address] [id number] Monocytes (Bld) [#/Vol] 0.5 10*3/uL Normal 0.1-0.9 [facility]; [facility] Work Phone: Comment on above: A courtesy copy of t his report has been sent [phone].PATIENT WAS FASTINGPERFORMED BY: [employer] [address] [id number] BY: [employer] IICarl [place] 3852670 [facility] [id number] Monocytes Auto #/vol (Bld) 0.5 {x10E3/uL} Normal 0.1-0.9 [facility] Work Phone: Monocytes/100 WBC (Bld) 5 % Normal C omprehensive Internal Medicine Work Phone: Comment on above: A courtesy copy of t his report has been sent [phone].PATIENT WAS FASTINGPERFORMED BY: [employer] [address] [id number] BY: [place] 7567870 [facility] [id number] Monocytes/100 WBC Auto (Bld) 5 % Normal [facility] Work Phone: Neutrophils (Bld) [#/Vol] 5.6 {x10E3/uL} Normal 1.4-7.0 [facility] Work Phone: Comment on above: A courtesy copy of t his report has been sent [phone].PATIENT WAS FASTINGPERFORMED BY: Telera [address] [id number] BY: Sonics Dskkjv9006 [facility] [id number] Neutrophils (Bld) [#/Vol] 5.6 10*3/uL Normal 1.4-7.0 [facility]; [facility] Work Phone: Comment on above: A courtesy copy of t his report has been sent [phone].PATIENT WAS FASTINGPERFORMED BY: Tel[employer] [address] [id number] BY: Sonics Cdovsj7238 [facility] [id number] Neutrophils Auto #/vol (Bld) 5.6 {x10E3/uL} Normal 1.4-7.0 [facility] Work Phone: Neutrophils/100 WBC (Bld) 62 % Normal [facility] Work Phone: Comment on above: A courtesy copy of t his report has been sent [phone].PATIENT WAS FASTINGPERFORMED BY: Telera [address] [id number] BY: SonicsVictor [place] 7179570 [facility] [id number] Neutrophils/100 WBC Auto (Bld) 62 % Normal [facility] Work Phone: Platelets (Bld) [#/Vol] 408 {x10E3/uL} Abnormal 150-379 [facility] Work Phone: Comment on above: A courtesy copy of t his report has been sent [phone].PATIENT WAS FASTINGPERFORMED BY: Sonics[address] [id number] BY: LabCoLourdes Medical Center of Burlington CountyZiyqui9748 [facility] [id number] Platelets (Bld) [#/Vol] 408 10*3/uL Abnormal 150-379 [facility]; [facility] Work Phone: Comment on above: A courtesy copy of t his report has been sent [phone].PATIENT WAS FASTINGPERFORMED BY: Sonics[address] [id number] BY: SonicsVictor [place] 7179570 [facility] [id number] Platelets Auto #/vol (Bld) 408 {x10E3/uL} Abnormal 150-379 [facility] Work Phone: RBC (Bld) [#/Vol] 4.13 {x10E6/uL} Normal 3.77-5.28 [facility] Internal Medicine Work Phone: Comment on above: A courtesy copy of t his report has been sent [phone].PATIENT WAS FASTINGPERFORMED BY: Sonics[address] [id number] BY: SonicsVictor [place] 7179570 [facility] [id number] RBC (Bld) [#/Vol] 4.13 10*6/uL Normal 3.77-5.28 [facility]; [facility] Work Phone: Comment on above: A courtesy copy of t his report has been sent [phone].PATIENT WAS FASTINGPERFORMED BY: Sonics[address] [id number] BY: SonicsVictor [place] 7179570 [facility] [id number] RBC Auto #/vol (Bld) 4.13 {x10E6/uL} Normal 3.77-5.28 [facility] Internal Medicine Work Phone: WBC (Bld) [#/Vol] 8.9 {x10E3/uL} Normal 3.4-10.8 Com prehensive Internal Medicine Work Phone: Comment on above: A courtesy copy of t his report has been sent [phone].PATIENT WAS FASTINGPERFORMED BY: MOMENTFACE SROton[address] [place] [address] [id number] BY: Sigasi70 [facility] [id number] WBC (Bld) [#/Vol] 8.9 10*3/uL Normal 3.4-10.8 [facility] Internal Medicine; [facility] Work Phone: Comment on above: A courtesy copy of t his report has been sent [phone].PATIENT WAS FASTINGPERFORMED BY: MOMENTFACE SRO[address] [id number] BY: [facility] [id number] WBC Auto #/vol (Bld) 8.9 {x10E3/uL} Normal 3.4-10.8 [facility] Work Phone: HgA1C , Office ([phone])Ordere d By: Mable Ford on 08-18-2017 Hemoglobin A1c/Hemoglobin.total mass fraction (Bld) 5.9 % Normal 4.6 - 7.1 Comprehensiv e Internal Medicine Work Phone: LIPOPROTEIN, BLD, BY NMR (44 749)Ordered By: Rotor Casting Machine Setup Operator on 08-18-2017 Cholesterol in HDL mass conc 43 mg/dL Normal [facility] Work Phone: Comment on above: send results to dr Anita moreno as well; A courtesy copy of this report has been sent [phone].PATIENT WAS FASTINGPERFORMED BY: MOMENTFACE SROton1447 [facility] [id number] BY: Sigasi70 [facility] [id number] Information: DONTE DE LA FUENTE 8 Cholesterol in LDL mass conc 123 mg/dL Abnormal 0-99 [facility] Work Phone: Comment on above: . Optimal < 100 Abov e optimal 100 - 129 Borderline 130 - 159 High 160 - 189 Very high > 189 .LDL-C is inaccurate if patient is non-fasting. send results to dr Anita moreno as well; A courtesy copy of this report has been sent [phone].PATIENT WAS FASTINGPERFORMED BY: MOMENTFACE SRO[address] [id number] BY: [facility] [id number] Information: FX DR. DE LA FUENTE -307 1 Cholesterol mass conc 193 mg/dL Normal 100-199 [facility] Internal Medicine Work Phone: Comment on above: send results to dr Anita moreno as well; A courtesy copy of this report has been sent [phone].PATIENT WAS FASTINGPERFORMED BY: MOMENTFACE SRO[address] [id number] BY: Sigasi70 [facility] [id number] Information: FX DR. DE LA FUENTE -613 1 Lipoprotein.alpha molar conc 31.3 umol/L Normal [facility] Internal Medicine Work Phone: Comment on above: send results to dr Anita moreno as well; A courtesy copy of this report has been sent [phone].PATIENT WAS FASTINGPERFORMED BY: MOMENTFACE SRO[address] [id number] BY: [employer] Vzauzt2055 [facility] [id number] Information: FX DR. DE LA FUENTE -520 1 Lipoprotein.beta.subpar ticle Entitic length 21.0 nm Normal [facility]hen[facility]ack[facility] Internal [facility] Work Phone: Comment on above: INTERPRETATIVE INFORMATION PARTICLE CONCENTRATION AND SIZE <--Lower CVD Risk Higher CVD Risk--> LDL AND HDL PARTICLES Percentile in Reference Population HDL-P (total) High 75th 50th 25th Low >34.9 34.9 30.5 26.7 <26.7 . Small LDL-P Low 25th 50th 75th High <117 117 527 839 >839 . LDL Size <-Large (Pattern A)-> <-Small (Pattern B)-> 23.0 20.6 20.5 19.0 Smal l LDL-P and LDL Size are associated with CVD risk, but not afterLDL-P is taken into account. .These assays were developed and their performance characteristicsdetermined by [employer]. These assays have not been cleared by [place] Food and Drug Administration. The clinical utility of theselaboratory values have not been fully established. send results to dr Anita moreno as well; A courtesy copy of this report has been sent [phone].PATIENT WAS FASTINGPERFORMED BY: MOMENTFACE SROChristine [place]ille [id number] BY: [employer] Ibmiov[address] [place] [address] [id number] Information: FX DR. DE LA FUENTE Lipoprotein.beta.subpar ticle molar conc 1927 nmol/L Abnormal [facility] Work Phone: Comment on above: Low < 1000 Moderate 1000 - 1299 Borderline-High 1300 - 1599 High 1600 - 2000 Very High > [address] Anita moreno as well; A courtesy copy of this report has been sent [phone].PATIENT WAS FASTINGPERFORMED BY: MOMENTFACE SRO[address] [id number] BY: SonicsLourdes Medical Center of Burlington CountyPapakq10[address] [place] [address] [id number] Information: FX DR. DE LA FUENTE 1 Lipoprotein.beta.subpar ticle.small molar conc 1111 nmol/L Abnormal Comprehen sive Internal Medicine Work Phone: Comment on above: send results to dr Anita moreno as well; A courtesy copy of this report has been sent [phone].PATIENT WAS FASTINGPERFORMED BY: [employer] [facility] [id number] BY: [employer] [facility] [id number] Information: FX DR. DE LA FUENTE 1 Triglyceride mass conc 137 mg/dL Normal 0-149 [facility] Internal Medicine Work Phone: Comment on above: send results to dr Anita moreno as well; A courtesy copy of this report has been sent [phone].PATIENT WAS FASTINGPERFORMED BY: MOMENTFACE SRO[address] [id number] BY: ZeeVee70 [facility] [id number] Information: FX DR. DE LA FUENTE -841 1 METABOLIC PANEL, COMPREHENSI VE (40663)Ordered By: Rotor Casting Machine Setup Operator on 08-18-2017 Albumin mass conc 4.5 g/dL Normal 3.6-4.8 Compreh ensive Internal Medicine Work Phone: Comment on above: A courtesy copy of t his report has been sent [phone].PATIENT WAS FASTINGPERFORMED BY: MOMENTFACE SRO[address] [id number] BY: Sonics Jvsafy3974 [facility] [id number] Albumin/Globulin mass ratio 1.9 {ratio} Normal 1.2-2.2 [facility] Work Phone: Comment on above: A courtesy copy of t his report has been sent [phone].PATIENT WAS FASTINGPERFORMED BY: MOMENTFACE SROton1447 [facility] [id number] BY: [facility] [facility] [id number] ALP [Catalytic activity/Vol] 102 U/L Normal 39-117 [facility]; [facility] Internal Medicine Work Phone: Comment on above: A courtesy copy of t his report has been sent [phone].PATIENT WAS FASTINGPERFORMED BY: [address] [id number] BY: [place] 7567870 [facility] [id number] ALP enzyme act/vol 102 [iU]/L Normal 39-117 [facility] Internal Medicine Work Phone: Comment on above: A courtesy copy of t his report has been sent [phone].PATIENT WAS FASTINGPERFORMED BY: [address] [id number] BY: [place] [id number] [facility] [id number] ALT [Catalytic activity/Vol] 16 U/L Normal 0-32 [facility]; [facility] Internal Medicine Work Phone: Comment on above: A courtesy copy of t his report has been sent [phone].PATIENT WAS FASTINGPERFORMED BY: [address] [id number] BY: [facility]6370 [facility] [id number] ALT enzyme act/vol 16 [iU]/L Normal 0-32 [facility] Internal Medicine Work Phone: Comment on above: A courtesy copy of t his report has been sent [phone].PATIENT WAS FASTINGPERFORMED BY: [address] [id number] BY: [facility]6370 [facility] [id number] AST [Catalytic activity/Vol] 18 U/L Normal 0-40 [facility]; [facility] Work Phone: Comment on above: A courtesy copy of t his report has been sent [phone].PATIENT WAS FASTINGPERFORMED BY: [address] [id number] BY: [facility] NorthCloneLourdes Medical Center of Burlington CountyDotyki4119 [facility] [id number] AST enzyme act/vol 18 [iU]/L Normal 0-40 [facility] Work Phone: Comment on above: A courtesy copy of t his report has been sent [phone].PATIENT WAS FASTINGPERFORMED BY: [address] [id number] BY: SonicsLourdes Medical Center of Burlington CountyFxrxge1668 [facility] [id number] Bilirubin mass conc 0.2 mg/dL Normal 0.0-1.2 [facility] Internal Medicine Work Phone: Comment on above: A courtesy copy of t his report has been sent [phone].PATIENT WAS FASTINGPERFORMED BY: [address] [id number] BY: SonicsLourdes Medical Center of Burlington CountyWqppzj4307 [facility] [id number] Calcium mass conc 9.4 mg/dL Normal 8.7-10.3 [facility] Internal Medicine Work Phone: Comment on above: A courtesy copy of t his report has been sent [phone].PATIENT WAS FASTINGPERFORMED BY: [address] [id number] BY: SonicsLourdes Medical Center of Burlington CountyAlmtwu2823 [facility] [id number] Chloride molar conc 104 mmol/L Normal 96-106 Compr [facility] Internal Medicine Work Phone: Comment on above: A courtesy copy of t his report has been sent [phone].PATIENT WAS FASTINGPERFORMED BY: [address] [id number] BY: Sonics Lmmjmx3105 [facility] [id number] CO2 molar conc 23 mmol/L Normal 20-29 Comprehens daniel Internal Medicine Work Phone: Comment on above: A courtesy copy of t his report has been sent [phone].PATIENT WAS FASTINGPERFORMED BY: Declara Fwwqfhoymk[address] [id number] BY: Sonics Ydjtfh0316 [facility] [id number] Creatinine mass conc 0.99 mg/dL Normal 0.57-1.00 Comp rehensive Internal Medicine Work Phone: Comment on above: A courtesy copy of t his report has been sent [phone].PATIENT WAS FASTINGPERFORMED BY: MOMENTFACE SRO[address] [id number] BY: AisleFinder6370 [facility] [id number] GFR/1.73 sq M predicted among blacks CKD-EPI vol rate/area (S/P/Bld) 70 mL/min/1.73 Normal Comprehe [facility] Internal Medicine Work Phone: Comment on above: A courtesy copy of t his report has been sent [phone].PATIENT WAS FASTINGPERFORMED BY: Sonics[address] [id number] BY: SonicsLourdes Medical Center of Burlington CountyZwlczz2811 [facility] [id number] GFR/1.73 sq M predicted among non-blacks CKD-EPI vol rate/area (S/P/Bld) 60 mL/min/1.73 Normal [facility] Work Phone: Comment on above: A courtesy copy of t his report has been sent [phone].PATIENT WAS FASTINGPERFORMED BY: Sonics[address] [id number] BY: Sonics Gitqzz5748 [facility] [id number] Globulin (S) [Mass/Vol] 2.4 g/dL Normal 1.5-4.5 [facility] Internal [facility] Work Phone: Comment on above: A courtesy copy of t his report has been sent [phone].PATIENT WAS FASTINGPERFORMED BY: Sonics Fjefvcikrl[address] [id number] BY: Sonics Bzojpm5070 [facility] [id number] Globulin Calculated mass conc (S) 2.4 g/dL Normal 1.5-4.5 [facility] Work Phone: Glucose mass conc 88 mg/dL Normal 65-99 Compreh ensive Internal Medicine Work Phone: Comment on above: A courtesy copy of t his report has been sent [phone].PATIENT WAS FASTINGPERFORMED BY: Bex[address] [id number] BY: Sonics Dobgep6365 [facility] [id number] Potassium molar conc 4.4 mmol/L Normal 3.5-5.2 Comp [facility]fieldensive Internal [facility] Work Phone: Comment on above: A courtesy copy of t his report has been sent [phone].PATIENT WAS FASTINGPERFORMED BY: Sonics Ikdmdehjnf[address] [id number] BY: SonicsLourdes Medical Center of Burlington CountyEhhqrn0343 [facility] [id number] Protein mass conc 6.9 g/dL Normal 6.0-8.5 Compreh ensive Internal Medicine Work Phone: Comment on above: A courtesy copy of t his report has been sent [phone].PATIENT WAS FASTINGPERFORMED BY: Sonics Lubgepytro7[address] [id number] BY: SonicsVictor Ville 7179570 [facility] [id number] Sodium molar conc 144 mmol/L Normal 134-144 Compreh ensive Internal Medicine Work Phone: Comment on above: A courtesy copy of t his report has been sent [phone].PATIENT WAS FASTINGPERFORMED BY: MOMENTFACE SRO[address] [id number] BY: Sonics Qlnywj9207 [facility] [id number] Urea nitrogen mass conc 12 mg/dL Normal 8-27 C omprehensive Internal Medicine Work Phone: Comment on above: A courtesy copy of t his report has been sent [phone].PATIENT WAS FASTINGPERFORMED BY: MOMENTFACE SRO[address] [id number] BY: ZeeVee70 [facility] [id number] Urea nitrogen/Creatinine mass ratio 12 mg/mg Normal 12- [facility] Work Phone: Comment on above: A courtesy copy of t his report has been sent [phone].PATIENT WAS FASTINGPERFORMED BY: MOMENTFACE SRO[address] [id number] BY: ZeeVee70 [facility] [id number] TSH (65567)Ordered By: Antionette Beaulieu on 08-18-2017 Thyrotropin Qn 1.180 {uIU/mL} Normal 0.450-4.50 0 [facility] Work Phone: Comment on above: A courtesy copy of t his report has been sent [phone].PATIENT WAS FASTINGPERFORMED BY: MOMENTFACE SRO[address] [id number] BY: Sonics Edoxie2748 [facility] [id number] Blood Glucose , Office ([phone])Ordered By: Munira Crespo on 04-21-2016 Glucose Glucometer molar conc ([facility]) 115 1 Normal [facility] Work Phone: HgA1C , Office (09042)Ordere d By: Munira Crespo on 04-21-2016 Hemoglobin A1c/Hemoglobin.total mass fraction (Bld) 5.9 % Normal 4.6 - 7.1 Comprehensiv e Internal Medicine Work Phone: URINE MORGAN CULTURE-NINA COL C OUNT (09744)Ordered By: Rotor Casting Machine Setup Operator on 02-16-2016 Bacteria identified Cx Nom (U) ECV Abnormal [facility] Work Phone: Comment on above: Escherichia coli, id entified by an automated biochemical system.10,000-25,000 colony forming units per mL S = Susceptible; I = Intermediate; R = Resistant P = Positive; N = Negative MICS are expressed in micrograms per mL Antibiotic RSLT#1 RSLT#2 RSLT#3 RSLT#4Amoxicillin/Clavulanic Acid SAmpicillin SCefepime SCeftriaxone SCefuroxime SCephalothin SCiprofloxacin SErtapenem SGentamicin SImipenem SLevofloxacin SNitrofurantoin SPiperacillin STetracycline STobramycin STrimethoprim/Sulfa S PATIENT NOT FASTINGP ERFORMED BY: [facility] Nggbuz5389 [facility] [id number] Information: SRC:NATHAN Bacteria identified Cx Nom (U) Final report Abnormal [facility] Work Phone: Comment on above: PATIENT NOT FASTINGP ERFORMED BY: [facility] Qtqzwm3351 [facility] [id number] Information: SRC:NATHAN Urinalysis, Office (08170)Or dered By: Marti Reid on 02-16-2016 Bilirubin Ql (U) Negative Normal Comprehe nsive Internal Medicine Work Phone: Bilirubin Ql (U) Negative Normal Comprehe nsive Internal Medicine; [facility] Work Phone: Glucose Test strip (U) [Mass/Vol] Negative Normal [facility]; [facility] Work Phone: Glucose Test strip mass conc (U) Negative Normal [facility] Work Phone: Hemoglobin Ql (U) ++ Abnormal Compreh ensive Internal Medicine Work Phone: Hemoglobin Test strip Ql (U) ++ Abnormal [facility] Work Phone: Ketones Ql (U) Negative Normal Comprehens daniel Internal Medicine Work Phone: Ketones Ql (U) Negative Normal Comprehens daniel [facility]; [facility] Work Phone: Leukocyte esterase Test strip Ql (U) Small Normal [facility] Work Phone: Nitrite Ql (U) Negative Normal Comprehens daniel Internal Medicine Work Phone: Nitrite Ql (U) Negative Normal Comprehens daniel [facility]; [facility] Work Phone: Nitrite Test strip Ql (U) Negative Normal [facility] Work Phone: pH (U) 6.0 [pH] Normal [facility] Work Phone: pH Test strip (U) 6.0 [pH] Normal Compreh ensive Internal Medicine Work Phone: Protein Ql (U) Negative Normal Comprehens daniel Internal Medicine Work Phone: Protein Ql (U) Negative Normal Comprehens daniel Internal Medicine; [facility] Work Phone: Protein Test strip Ql (U) Negative Normal [facility] Work Phone: Specific gravity Relative Density (U) 1.005 1 Normal Comprehensi ve Internal Medicine Work Phone: Urobilinogen mass/time (24H U) Normal Normal [facility] Work Phone: HgA1C , Office ([phone])Ordere d By: BEBO Barry on 02-03-2015 Hemoglobin A1c/Hemoglobin.total mass fraction (Bld) 5.7 % Normal 4.6 - 7.1 Comprehensiv e Internal Medicine Work Phone: HEPATIC FUNCTION PANEL ([phone])Ordered By: Rotor Casting Machine Setup Operator on 01-29-2015 Albumin mass conc 4.4 g/dL Normal 3.6-4.8 Compreh ensive Internal Medicine Work Phone: Comment on above: in three months (shruthi roximately) copy to Dr. de la fuente; PATIENT WAS FASTINGPERFORMED BY: CB [facility] Oxmqmv2718 [address] RoadDublin [place] [id number] ALP [Catalytic activity/Vol] 95 U/L Normal 39-117 [facility]; [facility] Work Phone: Comment on above: in three months (shruthi roximately) copy to Dr. de la fuente; PATIENT WAS FASTINGPERFORMED BY: CB [facility] Osbgge2009 Gilman RoadDublin [place] [id number] ALP enzyme act/vol 95 [iU]/L Normal 39-117 [facility] Internal Medicine Work Phone: Comment on above: in three months (shruthi roximately) copy to Dr. de la fuente; PATIENT WAS FASTINGPERFORMED BY: CB [facility] Tyohzr0392 Gilman RoadDublin [place] [id number] ALT [Catalytic activity/Vol] 15 U/L Normal 0-32 [facility]; [facility] Work Phone: Comment on above: in three months (shruthi roximately) copy to Dr. de la fuente; PATIENT WAS FASTINGPERFORMED BY: CB [facility] Tnklql7455 Gil[address] RoadDublin [place] [id number] ALT enzyme act/vol 15 [iU]/L Normal 0-32 [facility] Internal Medicine Work Phone: Comment on above: in three months (shruthi roximately) copy to Dr. de la fuente; PATIENT WAS FASTINGPERFORMED BY: CB [facility] Lopkod8242 [address] RoadDublin [place] [id number] AST [Catalytic activity/Vol] 15 U/L Normal 0-40 [facility]; [facility] Work Phone: Comment on above: in three months (shruthi roximately) copy to Dr. de la fuente; PATIENT WAS FASTINGPERFORMED BY: CB [facility] Lkdkka3044 Gil[address] RoadDublin [place] [id number] AST enzyme act/vol 15 [iU]/L Normal 0-40 [facility] Internal Medicine Work Phone: Comment on above: in three months (shruthi roximately) copy to Dr. de la fuente; PATIENT WAS FASTINGPERFORMED BY: CB [facility] Fspiya6449 [address] RoadDublin [place] [id number] Bilirubin mass conc 0.5 mg/dL Normal 0.0-1.2 [facility]pr [facility] Internal [facility] Work Phone: Comment on above: in three months (shruthi roximately) copy to Dr. de la fuente; PATIENT WAS FASTINGPERFORMED BY: CB [facility] Ezesou0840 [address] RoadDublin [place] [id number] Bilirubin.direct mass conc 0.12 mg/dL Normal 0.00-0.40 [facility] Work Phone: Comment on above: in three months (shruthi roximately) copy to Dr. de la fuente; PATIENT WAS FASTINGPERFORMED BY: CB [facility] Codjgp7466 [address] RoadDublin [place] [id number] Protein mass conc 6.9 g/dL Normal 6.0-8.5 Compreh ensive Internal Medicine Work Phone: Comment on above: in three months (shruthi roximately) copy to Dr. de la fuente; PATIENT WAS FASTINGPERFORMED BY: CB [facility] Knifoq1024 [address] RoadDublin [place] [id number] LIPID PANEL (14408)Ordered B y: Rotor Casting Machine Setup Operator on 01-29-2015 Cholesterol in HDL mass conc 44 mg/dL Normal [facility] Work Phone: Comment on above: According to ATP-III Guidelines, HDL-C >59 mg/dL is considered anegative risk factor for CHD. PATIENT WAS FASTINGP ERFORMED BY: CB [facility] Uwjtdf5035 Gilman RoadDublin [place] [id number] Information: [id number] Cholesterol in LDL mass conc 106 mg/dL Abnormal 0-99 [facility] Work Phone: Comment on above: PATIENT WAS FASTINGP ERFORMED BY: CB [facility] Voxpql9602 [address] RoadDublin [place] [id number] Information: [id number] Cholesterol in LDL/Cholesterol in HDL mass ratio 2.4 {ratio_units} Normal 0.0-3.2 [facility] Work Phone: Comment on above: LDL/HDL Ratio Men Wo men 1/2 Avg.Risk 1.0 1.5 Avg.Risk 3.6 3.2 2X Avg.Risk 6.2 5.0 3X Avg.Risk 8.0 6.1 PATIENT WAS FASTINGP ERFORMED BY: CB [facility] Umwbhc[address] [facility] [id number] Information: [id number] Cholesterol in VLDL mass conc 21 mg/dL Normal 5-40 [facility] Work Phone: Comment on above: PATIENT WAS FASTINGP ERFORMED BY: [facility] Acedec7574 [facility] [id number] Information: [id number] Cholesterol mass conc 171 mg/dL Normal 100-199 Com prehensive Internal Medicine Work Phone: Comment on above: PATIENT WAS FASTINGP ERFORMED BY: [facility] Spzrti7045 [facility] [id number] Information: [id number] Triglyceride mass conc 107 mg/dL Normal 0-149 [facility] [place] healthensive Internal Medicine Work Phone: Comment on above: PATIENT WAS FASTINGP ERFORMED BY: [facility] Zgpmgz6917 [facility] [id number] Information: [id number] BREAST BIOPSY (CHOOSE SITE)O rdered By: Rotor Casting Machine Setup Operator on 08-29-2014 BREAST BIOPSY (CHOOSE SITE) See Note Normal [facility] Work Phone: Comment on above: Patient: TAMARA JARRELL : 1955 (59/F) Acct Num: [id number] Phys: Mimi Ferguson MD Unit Num: [id number] Loc: [facility] Specimen: [id number] Received: 08/29/14937 Spec Type: BREAST BX TISSUES TISSUES: COMMENT IHC ([id number]) supports the above diagnosis. GROSS DESCRIPTION Received is one container labeled with the patient name and designated left breast. The specimen consists of multiple elongated fragments of boggs-yellow fibroadipose tissue measuring in aggregate 5 x 3 x 0.3 cm. The specimen is totally submitted in two cassettes. / SJ: 08/29/14 TC:5 CPT: 44029 HEADER OPERATION: US guided breast biopsy - left PRE-OP DIAGNOSIS: Left breast lesion TISSUE SUBMITTED: Left breast tissue MICROSCOPIC DIAGNOSIS Left breast lesion, US guided needle core biopsy: Fibroadenomatous change Fibrocystic change, adenosis and usual intraductal hyperplasia without atypia. Banal microcalcifications. No evidence of malignancy. AM: 08/30/14 Signed Coy Parveen 09/02/14 Test performed at:[facility] Icsc[address]avf[address] [place] [address] IMMUNOHISTOCHEMISTRYOrdered By: Rotor Casting Machine Setup Operator on 08-29-2014 IMMUNOHISTOCHEMISTRY See Note Normal Comp rehensive Internal Medicine Work Phone: Comment on above: Patient: TAMARA JARRELL : 1955 (59/F) Acct Num: [id number] Phys: Marty LOPEZ,Mimi Unit Num: [id number] Loc: [facility] Specimen: [id number] Received: 08/30/14 - 8998 Spec Type: IMMUNO TISSUES TISSUES: SPECIMEN INFORMATION: Tissue Source: Left breast, core biopsy Clinical Info: Left breast lesion Specimen Number: [id number] #1 CPT code: 67321, 39126 x3 METHODOLOGY: Deparaffinized sections of prefer/formalin-fixed tissue or PAP/DQ stained slides are incubated with monoclonal/polyclonal antibodies/oligonucleotide probes. Localization is made via biotin free immunoperoxidase method. Appropriate controls are performed and reacted as expected. Results on target cell population are indicated in the following table: RESULTS: ANTIBODY / CLONE RESULT AE1-3/PCK26 (AE1,AE3,PCK26) positive Actin (alpha sm-1/1A4) positive P63 (7JUL/4A4) positive Calponin-1 KD377V) positive These tests were developed and their performance characteristics determined by [facility]. They may not have been cleared or approved by the U.S. Food and Drug Administration. The FDA has determined that such clearance or approval is not necessary. INTERPRETATION: Left breast core biopsy: Benign breast tissue. AM:ch 09/02/14 PHYSICIAN AND INSTITUTION [facility] [address] [place], [place] [address] Signed Coy Parveen 09/02/14 Test performed at:[facility] [address] [place] [address] Blood Glucose , Office (8423 2)Ordered By: Mel Le on 08-27-2014 Glucose Glucometer molar conc (BldC) 110 1 Normal [facility] Work Phone: HgA1C , Office (57631)Ordere d By: Mel Le on 08-27-2014 Hemoglobin A1c/Hemoglobin.total mass fraction (Bld) 6.0 % Normal 4.6 - 7.1 Comprehensiv e Internal Medicine Work Phone: Antinuclear Antibodies Direc tOrdered By: Rotor Casting Machine Setup Operator on 07-26-2014 Nuclear Ab Ql (S) Negative Normal Compreh ensive Internal Medicine Work Phone: Comment on above: PATIENT WAS FASTINGP ERFORMED BY: [facility] Fvtegz3164 [facility] [id number] CBC With Differential/Platel etOrdered By: Rotor Casting Machine Setup Operator on 07-26-2014 Basophils (Bld) [#/Vol] 0.1 {x10E3/uL} Normal 0.0-0.2 [facility] Work Phone: Comment on above: PATIENT WAS FASTINGP ERFORMED BY: iJigg.com6370 [facility] [id number] Information: [id number] Basophils Auto #/vol (Bld) 0.1 {x10E3/uL} Normal 0.0-0.2 [facility] Work Phone: Basophils/100 WBC (Bld) 1 % Normal C omprehensive Internal Medicine Work Phone: Comment on above: PATIENT WAS FASTINGP ERFORMED BY: [place] 7567870 [facility] [id number] Information: [id number] Basophils/100 WBC Auto (Bld) 1 % Normal [facility] Work Phone: Eosinophils (Bld) [#/Vol] 0.1 {x10E3/uL} Normal 0.0-0.4 [facility] Work Phone: Comment on above: PATIENT WAS FASTINGP ERFORMED BY: [address] [id number] Information: [id number] Eosinophils Auto #/vol (Bld) 0.1 {x10E3/uL} Normal 0.0-0.4 [facility] Work Phone: Eosinophils/100 WBC (Bld) 2 % Normal [facility] Work Phone: Comment on above: PATIENT WAS FASTINGP ERFORMED BY: [address] [id number] Information: [id number] Eosinophils/100 WBC Auto (Bld) 2 % Normal [facility] Work Phone: Erythrocyte distribution width (RBC) [Ratio] 15.1 % Normal 12.3-15.4 [facility] Work Phone: Comment on above: PATIENT WAS FASTINGP ERFORMED BY: [place] 7567870 [facility] [id number] Information: [id number] Erythrocyte distribution width Auto Ratio (RBC) 15.1 % Normal 12.3-15.4 [facility] Work Phone: Hematocrit (Bld) [Volume fraction] 38.9 % Normal 34.0-46.6 [facility] Work Phone: Comment on above: PATIENT WAS FASTINGP ERFORMED BY: ANCELMO [facility]6370 [facility] [id number] Information: [id number] Hematocrit Auto Volume Fraction (Bld) 38.9 % Normal 34.0-46.6 [facility] Work Phone: Hemoglobin mass conc (Bld) 12.3 g/dL Normal 11.1-15.9 [facility] Work Phone: Comment on above: PATIENT WAS FASTINGP ERFORMED BY: ANCELMO [place] 3842370 [facility] [id number] Information: [id number] Immature granulocytes #/vol (Bld) 0.0 {x10E3/uL} Normal 0.0-0.1 [facility] Work Phone: Comment on above: PATIENT WAS FASTINGP ERFORMED BY: ANCELMO [place] 3842370 [facility] [id number] Information: [id number] Immature granulocytes/100 WBC (Bld) 0 % Normal [facility] Work Phone: Comment on above: PATIENT WAS FASTINGP ERFORMED BY: ANCELMO [place] 3842370 [facility] [id number] Information: [id number] Lymphocytes (Bld) [#/Vol] 2.6 {x10E3/uL} Normal 0.7-3.1 [facility] Work Phone: Comment on above: PATIENT WAS FASTINGP ERFORMED BY: [facility]6370 [facility] [id number] Information: [id number] Lymphocytes Auto #/vol (Bld) 2.6 {x10E3/uL} Normal 0.7-3.1 [facility] Work Phone: Lymphocytes/100 WBC (Bld) 39 % Normal [facility] Work Phone: Comment on above: PATIENT WAS FASTINGP ERFORMED BY: ANCELMO [facility]6370 [facility] [id number] Information: [id number] Lymphocytes/100 WBC Auto (Bld) 39 % Normal [facility] Work Phone: MCH (RBC) [Entitic mass] 30.3 pg Normal 26.6-33.0 [facility] Work Phone: Comment on above: PATIENT WAS FASTINGP ERFORMED BY: [address] [id number] Information: [id number] MCH Auto Entitic mass (RBC) 30.3 pg Normal 26.6-33.0 [facility] Work Phone: MCHC (RBC) [Mass/Vol] 31.6 g/dL Normal 31.5-35.7 [facility] Internal Medicine Work Phone: Comment on above: PATIENT WAS FASTINGP ERFORMED BY: [address] [id number] Information: [id number] MCHC Auto mass conc (RBC) 31.6 g/dL Normal 31.5-35.7 [facility] Internal Medicine Work Phone: MCV (RBC) [Entitic vol] 96 fL Normal 79-97 [facility] Internal [facility] Work Phone: Comment on above: PATIENT WAS FASTINGP ERFORMED BY: ANCELMO [address] [id number] Information: [id number] MCV Auto Entitic volume (RBC) 96 fL Normal 79-97 [facility] Internal Medicine Work Phone: Monocytes (Bld) [#/Vol] 0.4 {x10E3/uL} Normal 0.1-0.9 [facility] Internal Medicine Work Phone: Comment on above: PATIENT WAS FASTINGP ERFORMED BY: [place] [id number] [facility] [id number] Information: [id number] Monocytes Auto #/vol (Bld) 0.4 {x10E3/uL} Normal 0.1-0.9 [facility] Work Phone: Monocytes/100 WBC (Bld) 6 % Normal C omprehensive Internal Medicine Work Phone: Comment on above: PATIENT WAS FASTINGP ERFORMED BY: ANCELMO [place] 3842370 [facility] [id number] Information: [id number] Monocytes/100 WBC Auto (Bld) 6 % Normal [facility] Work Phone: Neutrophils (Bld) [#/Vol] 3.5 {x10E3/uL} Normal 1.4-7.0 [facility] Work Phone: Comment on above: PATIENT WAS FASTINGP ERFORMED BY: ANCELMO [place] 3842370 [facility] [id number] Information: [id number] Neutrophils Auto #/vol (Bld) 3.5 {x10E3/uL} Normal 1.4-7.0 [facility] Work Phone: Neutrophils/100 WBC (Bld) 52 % Normal [facility] Work Phone: Comment on above: PATIENT WAS FASTINGP ERFORMED BY: ANCELMO [place] [id number] [facility] [id number] Information: [id number] Neutrophils/100 WBC Auto (Bld) 52 % Normal [facility] Work Phone: Platelets (Bld) [#/Vol] 341 {x10E3/uL} Normal 150-379 [facility] Work Phone: Comment on above: PATIENT WAS FASTINGP ERFORMED BY: [place] 7567870 [facility] [id number] Information: [id number] Platelets Auto #/vol (Bld) 341 {x10E3/uL} Normal 150-379 [facility] Work Phone: RBC (Bld) [#/Vol] 4.06 {x10E6/uL} Normal 3.77-5.28 [facility] Internal Medicine Work Phone: Comment on above: PATIENT WAS FASTINGP ERFORMED BY: ANCELMO LabEliane BirminhgamWrclzu1617 [facility] [id number] Information: [id number] RBC Auto #/vol (Bld) 4.06 {x10E6/uL} Normal 3.77-5.28 [facility] Internal Medicine Work Phone: WBC (Bld) [#/Vol] 6.8 {x10E3/uL} Normal 3.4-10.8 [facility] Internal Medicine Work Phone: Comment on above: PATIENT WAS FASTINGP ERFORMED BY: ANCELMO Birminghamlin6370 [facility] [id number] Information: [id number] WBC Auto #/vol (Bld) 6.8 {x10E3/uL} Normal 3.4-10.8 [facility] Internal Medicine Work Phone: Comp. Metabolic Panel (14)Or dered By: Rotor Casting Machine Setup Operator on 07-26-2014 Albumin mass conc 4.4 g/dL Normal 3.6-4.8 [facility] Internal Medicine Work Phone: Comment on above: PATIENT WAS FASTINGP ERFORMED BY: ANCELMO LabEliane BirminghamHmnmeo3550 [facility] [id number] Albumin/Globulin mass ratio 2.0 {ratio} Normal 1.1-2.5 [facility] Internal Medicine Work Phone: Comment on above: PATIENT WAS FASTINGP ERFORMED BY: ANCELMO LabCosharon BirminghamVkpfxs5604 [facility] [id number] ALP enzyme act/vol 95 [iU]/L Normal 39-117 [facility] Internal Medicine Work Phone: Comment on above: PATIENT WAS FASTINGP ERFORMED BY: ANCELMO LabCoLourdes Medical Center of Burlington CountyZzgith1412 [facility] [id number] ALT enzyme act/vol 12 [iU]/L Normal 0-32 [facility] Internal Medicine Work Phone: Comment on above: PATIENT WAS FASTINGP ERFORMED BY: ANCELMO LabEliane BirminghamPdxzyf0409 Gil[address] RoadDublin [place] [id number] AST enzyme act/vol 15 [iU]/L Normal 0-40 Compre [facility] Internal Medicine Work Phone: Comment on above: PATIENT WAS FASTINGP ERFORMED BY: ANCELMO LabEliane BirminghamZrmffy3960 Gil[address] Roadblin [place] [id number] Bilirubin mass conc 0.2 mg/dL Normal 0.0-1.2 Compr ensive Internal Medicine Work Phone: Comment on above: PATIENT WAS FASTINGP ERFORMED BY: ANCELMO LabEliane BirminghamRvacwj4897 Gilman RoadDublin [place] [id number] Calcium mass conc 9.3 mg/dL Normal 8.7-10.3 Compreh [facility] Internal [facility] Work Phone: Comment on above: PATIENT WAS FASTINGP ERFORMED BY: ANCELMO Birminghamlin6370 [address] [facility] [place] [id number] Chloride molar conc 101 mmol/L Normal 97-108 Compr [facility] Internal Medicine Work Phone: Comment on above: PATIENT WAS FASTINGP ERFORMED BY: ANCELMO Hickman6370 [address] RoadAtrium Health Carolinas Rehabilitation [place]in [place] [id number] CO2 molar conc 22 mmol/L Normal 18-29 Comprehens daniel Internal Medicine Work Phone: Comment on above: PATIENT WAS FASTINGP ERFORMED BY: ANCELMO Birminghamlin6370 [address] [facility] [place] [id number] Creatinine mass conc 0.79 mg/dL Normal 0.57-1.00 Comp [facility] Internal Medicine Work Phone: Comment on above: PATIENT WAS FASTINGP ERFORMED BY: ANCELMO Birminghamlin6370 [address] Roadblin [place] [id number] GFR/1.73 sq M predicted among blacks CKD-EPI vol rate/area (S/P/Bld) 93 mL/min/1.73 Normal Comprehe ive Internal Medicine Work Phone: Comment on above: PATIENT WAS FASTINGP ERFORMED BY: ANCELMO Brooks Rbgvwa2978 [address] [facility] [id number] GFR/1.73 sq M predicted among non-blacks CKD-EPI vol rate/area (S/P/Bld) 81 mL/min/1.73 Normal [facility] Work Phone: Comment on above: PATIENT WAS FASTINGP ERFORMED BY: ANCELMO [facility] Kajdnb9955 [address] [facility] [id number] Globulin (S) [Mass/Vol] 2.2 g/dL Normal 1.5-4.5 C omprehensive Internal Medicine Work Phone: Comment on above: PATIENT WAS FASTINGP ERFORMED BY: ANCELMO LabCosharon Ltnvtq4584 [facility] [id number] Globulin Calculated mass conc (S) 2.2 g/dL Normal 1.5-4.5 [facility] Work Phone: Glucose mass conc 91 mg/dL Normal 65-99 Compreh ensive Internal Medicine Work Phone: Comment on above: PATIENT WAS FASTINGP ERFORMED BY: ANCELMO LabCosharon BirminghamZpnqyd5634 [facility] [id number] Potassium molar conc 4.3 mmol/L Normal 3.5-5.2 Comp rehensive Internal Medicine Work Phone: Comment on above: PATIENT WAS FASTINGP ERFORMED BY: ANCELMO [facility] Vpeyxy4002 [facility] [id number] Protein mass conc 6.6 g/dL Normal 6.0-8.5 Compreh ensive Internal Medicine Work Phone: Comment on above: PATIENT WAS FASTINGP ERFORMED BY: ANCELMO [facility] Bnpxgv0271 [facility] [id number] Sodium molar conc 139 mmol/L Normal 134-144 Compreh ensive Internal Medicine Work Phone: Comment on above: PATIENT WAS FASTINGP ERFORMED BY: ANCELMO [facility] Mabwzj5562 [address] [facility] [id number] Urea nitrogen mass conc 13 mg/dL Normal 8-27 C omprehensive Internal Medicine Work Phone: Comment on above: PATIENT WAS FASTINGP ERFORMED BY: ANCELMO LabEliane Zwzbzc5048 [address] Kymabblin [place] [id number] Urea nitrogen/Creatinine mass ratio 16 mg/mg Normal 11-26 [facility] Work Phone: Comment on above: PATIENT WAS FASTINGP ERFORMED BY: ANCELMO [facility] Sjyhnq7002 Gil[address] Roadblin [place] [id number] Lipid Panel With LDL/HDL Rat ioOrdered By: Rotor Casting Machine Setup Operator on 07-26-2014 Cholesterol in HDL mass conc 51 mg/dL Normal [facility] Work Phone: Comment on above: According to ATP-III Guidelines, HDL-C >59 mg/dL is considered anegative risk factor for CHD. PATIENT WAS FASTINGP ERFORMED BY: ANCELMO Santa Birminghamlin6370 [address] iCabbiin [place] [id number]; has fu 08-02-14 will review with her then Cholesterol in LDL mass conc 111 mg/dL Abnormal 0-99 [facility] Work Phone: Comment on above: PATIENT WAS FASTINGP ERFORMED BY: ANCELMO LabCarlossharon Pkbexe7099 [address] [facility] [place] [id number]; has fu 08-02-14 will review with her then Cholesterol in LDL/Cholesterol in HDL mass ratio 2.2 {ratio_units} Normal 0.0-3.2 [facility] Work Phone: Comment on above: LDL/HDL Ratio Men Wo men 1/2 Avg.Risk 1.0 1.5 Avg.Risk 3.6 3.2 2X Avg.Risk 6.2 5.0 3X Avg.Risk 8.0 6.1 PATIENT WAS FASTINGP ERFORMED BY: ANCELMO [facility] Vcobtn7860 [address] Kymabbl[place] [id number]; has fu 08-02-14 will review with her then Cholesterol in VLDL mass conc 19 mg/dL Normal 5-40 [facility] Work Phone: Comment on above: PATIENT WAS FASTINGP ERFORMED BY: ANCELMO [facility] Ojsegq2480 [address] [facility] [place] [id number]; has fu 08-02-14 will review with her then Cholesterol mass conc 181 mg/dL Normal 100-199 [facility] prehensive Internal Medicine Work Phone: Comment on above: PATIENT WAS FASTINGP ERFORMED BY: ANCELMO Hickman6370 [address] Road[address]in [place] [id number]; has fu 08-02-14 will review with her then Triglyceride mass conc 97 mg/dL Normal 0-149 Co carondelet healthensive Internal Medicine Work Phone: Comment on above: PATIENT WAS FASTINGP ERFORMED BY: ANCELMO LabEliane Wibdhr2841 [address] Roadblin [place] [id number]; has fu 08-02-14 will review with her then Microalb/Creat Ratio, Randm UrOrdered By: Rotor Casting Machine Setup Operator on 07-26-2014 Albumin DL <= 20 mg/L mass conc (U) 4.5 ug/mL Normal 0.0-17.0 [facility] Work Phone: Comment on above: PATIENT WAS FASTINGP ERFORMED BY: ANCELMO Santa Scarmf6841 Gilman RoadAtrium Health Carol[facility] Rehabilitation [place]in [place] [id number] Albumin/Creatinine mass ratio (U) 3.2 {mg/g_creat} Normal 0.0-30.0 [facility] Work Phone: Comment on above: PATIENT WAS FASTINGP ERFORMED BY: ANCELMO Brooks Stlden3107 [address] Roadblin [place] [id number] Creatinine mass conc (U) 139.1 mg/dL Normal 15.0-278.0 [facility] Internal Medicine Work Phone: Comment on above: PATIENT WAS FASTINGP ERFORMED BY: ANCELMO [facility] Lopmdo5124 Gilman RoadAtrium Health Carol[facility] Rehabilitation [place]in [place] [id number] Rheumatoid Arthritis FactorO rdered By: Rotor Casting Machine Setup Operator on 07-26-2014 Rheumatoid factor Qn 5.8 {IU/mL} Normal 0.0-13.9 [facility] prehensive Internal Medicine Work Phone: Comment on above: PATIENT WAS FASTINGP ERFORMED BY: ANCELMO [facility] Flbxrg0325 Gil[address] Roadblin [place] [id number] Sedimentation Rate-Westergre nOrdered By: Rotor Casting Machine Setup Operator on 07-26-2014 ESR Velocity (Bld) 9 mm/h Normal 0-40 Compre [facility] Internal Medicine Work Phone: Comment on above: PATIENT WAS FASTINGP ERFORMED BY: ANECLMO LabCosharon Zftdlq1519 [facility] [id number] TSHOrdered By: System Manage r on 07-26-2014 Thyrotropin Qn 1.630 {uIU/mL} Normal 0.450-4.50 0 [facility] Work Phone: Comment on above: PATIENT WAS FASTINGP ERFORMED BY: ANCELMO LabCo Sveecu9366 [facility] [id number] CBC WITH MANUAL DIFF ([id number]) Ordered By: Rotor Casting Machine Setup Operator on 01-07-2014 Basophils (Bld) [#/Vol] 0.1 {x10E3/uL} Normal 0.0-0.2 [facility] Work Phone: Comment on above: PATIENT WAS FASTINGP ERFORMED BY: ANCELMO Birminghamlin6370 [facility] [id number] Information: [id number] CC:[id number] 1 Basophils (Bld) [#/Vol] 0.1 10*3/uL Normal 0.0-0.2 [facility]; [facility] Work Phone: Comment on above: PATIENT WAS FASTINGP ERFORMED BY: ANCELMO LabCo Ndilmi8116 [facility] [id number] Information: [id number] CC:[id number] 1 Basophils Auto #/vol (Bld) 0.1 {x10E3/uL} Normal 0.0-0.2 [facility] Work Phone: Basophils/100 WBC (Bld) 1 % Normal C omprehensive [facility] Work Phone: Comment on above: PATIENT WAS FASTINGP ERFORMED BY: ANCELMO LabCo Iyplzp6806 [facility] [id number] Information: [id number] CC:[id number] 1 Basophils/100 WBC Auto (Bld) 1 % Normal [facility] Work Phone: Eosinophils (Bld) [#/Vol] 0.1 {x10E3/uL} Normal 0.0-0.4 [facility] Work Phone: Comment on above: PATIENT WAS FASTINGP ERFORMED BY: ANCELMO [place] 3842370 [facility] [id number] Information: [id number] CC:[id number] 1 Eosinophils (Bld) [#/Vol] 0.1 10*3/uL Normal 0.0-0.4 [facility]; [facility] Work Phone: Comment on above: PATIENT WAS FASTINGP ERFORMED BY: ANCELMO [address] [id number] Information: [id number] CC:[id number] 1 Eosinophils Auto #/vol (Bld) 0.1 {x10E3/uL} Normal 0.0-0.4 [facility] Work Phone: Eosinophils/100 WBC (Bld) 2 % Normal [facility] Work Phone: Comment on above: PATIENT WAS FASTINGP ERFORMED BY: ANCELMO Birmingham[address] [id number] Information: [id number] CC:[id number] 1 Eosinophils/100 WBC Auto (Bld) 2 % Normal [facility] Work Phone: Erythrocyte distribution width (RBC) [Ratio] 14.7 % Normal 12.3-15.4 [facility] Work Phone: Comment on above: PATIENT WAS FASTINGP ERFORMED BY: ANCELMO [address] [id number] Information: [id number] CC:[id number] 1 Erythrocyte distribution width Auto Ratio (RBC) 14.7 % Normal 12.3-15.4 [facility] Work Phone: Hematocrit (Bld) [Volume fraction] 37.8 % Normal 34.0-46.6 [facility] Work Phone: Comment on above: PATIENT WAS FASTINGP ERFORMED BY: ANCELMO [place] 3842370 [facility] [id number] Information: [id number] CC:[id number] 1 Hematocrit Auto Volume Fraction (Bld) 37.8 % Normal 34.0-46.6 [facility] Work Phone: Hemoglobin mass conc (Bld) 12.1 g/dL Normal 11.1-15.9 [facility] Work Phone: Comment on above: PATIENT WAS FASTINGP ERFORMED BY: ANCELMO [address] [id number] Information: [id number] CC:[id number] 1 Immature granulocytes #/vol (Bld) 0.0 {x10E3/uL} Normal 0.0-0.1 [facility] Work Phone: Comment on above: PATIENT WAS FASTINGP ERFORMED BY: ANCELMO [address] [id number] Information: [id number] CC:[id number] 1 Immature granulocytes (Bld) [#/Vol] 0.0 10*3/uL Normal 0.0-0.1 [facility]; [facility] Work Phone: Comment on above: PATIENT WAS FASTINGP ERFORMED BY: ANCELMO [address] [id number] Information: [id number] CC:[id number] 1 Immature granulocytes/100 WBC (Bld) 0 % Normal [facility] Work Phone: Comment on above: PATIENT WAS FASTINGP ERFORMED BY: [address] [id number] Information: [id number] CC:[id number] 1 Lymphocytes (Bld) [#/Vol] 2.9 {x10E3/uL} Normal 0.7-3.1 [facility] Work Phone: Comment on above: PATIENT WAS FASTINGP ERFORMED BY: [place] 7567870 [facility] [id number] Information: [id number] CC:[id number] 1 Lymphocytes (Bld) [#/Vol] 2.9 10*3/uL Normal 0.7-3.1 [facility]; [facility] Work Phone: Comment on above: PATIENT WAS FASTINGP ERFORMED BY: [place] 7567870 [facility] [id number] Information: [id number] CC:[id number] 1 Lymphocytes Auto #/vol (Bld) 2.9 {x10E3/uL} Normal 0.7-3.1 [facility] Work Phone: Lymphocytes/100 WBC (Bld) 43 % Normal [facility] Work Phone: Comment on above: PATIENT WAS FASTINGP ERFORMED BY: [place] 7567870 [facility] [id number] Information: [id number] CC:[id number] 1 Lymphocytes/100 WBC Auto (Bld) 43 % Normal [facility] Work Phone: MCH (RBC) [Entitic mass] 30.6 pg Normal 26.6-33.0 [facility] Work Phone: Comment on above: PATIENT WAS FASTINGP ERFORMED BY: [place] 7567870 [facility] [id number] Information: [id number] CC:[id number] 1 MCH Auto Entitic mass (RBC) 30.6 pg Normal 26.6-33.0 [facility] Work Phone: MCHC (RBC) [Mass/Vol] 32.0 g/dL Normal 31.5-35.7 [facility] prehensive Internal Medicine Work Phone: Comment on above: PATIENT WAS FASTINGP ERFORMED BY: [place] 7567870 [facility] [id number] Information: [id number] CC:[id number] 1 MCHC Auto mass conc (RBC) 32.0 g/dL Normal 31.5-35.7 [facility] Work Phone: MCV (RBC) [Entitic vol] 96 fL Normal 79-97 C omprehensive Internal Medicine Work Phone: Comment on above: PATIENT WAS FASTINGP ERFORMED BY: [address] [id number] Information: [id number] CC:[id number] 1 MCV Auto Entitic volume (RBC) 96 fL Normal 79-97 [facility] Work Phone: Monocytes (Bld) [#/Vol] 0.4 {x10E3/uL} Normal 0.1-0.9 [facility] Work Phone: Comment on above: PATIENT WAS FASTINGP ERFORMED BY: ANCELMO [address] [id number] Information: [id number] CC:[id number] 1 Monocytes (Bld) [#/Vol] 0.4 10*3/uL Normal 0.1-0.9 [facility]; [facility] Work Phone: Comment on above: PATIENT WAS FASTINGP ERFORMED BY: ANCELMO [place] 3842370 [facility] [id number] Information: [id number] CC:[id number] 1 Monocytes Auto #/vol (Bld) 0.4 {x10E3/uL} Normal 0.1-0.9 [facility] Work Phone: Monocytes/100 WBC (Bld) 6 % Normal C omprehensive Internal Medicine Work Phone: Comment on above: PATIENT WAS FASTINGP ERFORMED BY: ANCELMO [place] 3842370 [facility] [id number] Information: [id number] CC:[id number] 1 Monocytes/100 WBC Auto (Bld) 6 % Normal [facility] Work Phone: Neutrophils (Bld) [#/Vol] 3.4 {x10E3/uL} Normal 1.4-7.0 [facility] Work Phone: Comment on above: PATIENT WAS FASTINGP ERFORMED BY: ANCELMO Hickman6370 [facility] [id number] Information: [id number] CC:[id number] 1 Neutrophils (Bld) [#/Vol] 3.4 10*3/uL Normal 1.4-7.0 [facility]; [facility] Work Phone: Comment on above: PATIENT WAS FASTINGP ERFORMED BY: ANCELMO Cha [facility] [id number] Information: [id number] CC:[id number] 1 Neutrophils Auto #/vol (Bld) 3.4 {x10E3/uL} Normal 1.4-7.0 [facility] Work Phone: Neutrophils/100 WBC (Bld) 48 % Normal [facility] Work Phone: Comment on above: PATIENT WAS FASTINGP ERFORMED BY: ANCELMO Michael70 [facility] [id number] Information: [id number] CC:[id number] 1 Neutrophils/100 WBC Auto (Bld) 48 % Normal [facility] Work Phone: Platelets (Bld) [#/Vol] 410 {x10E3/uL} Abnormal 150-379 [facility] Work Phone: Comment on above: PATIENT WAS FASTINGP ERFORMED BY: ANCELMO Birminghamlin6370 [facility] [id number] Information: [id number] CC:[id number] 1 Platelets (Bld) [#/Vol] 410 10*3/uL Abnormal 150-379 [facility]; [facility] Work Phone: Comment on above: PATIENT WAS FASTINGP ERFORMED BY: ANCELMO Birminghamlin6370 [facility] [id number] Information: [id number] CC:[id number] 1 Platelets Auto #/vol (Bld) 410 {x10E3/uL} Abnormal 150-379 [facility] Work Phone: RBC (Bld) [#/Vol] 3.95 {x10E6/uL} Normal 3.77-5.28 [facility] Internal Medicine Work Phone: Comment on above: PATIENT WAS FASTINGP ERFORMED BY: ANCELMO [place] 3842370 [facility] [id number] Information: [id number] CC:[id number] 1 RBC (Bld) [#/Vol] 3.95 10*6/uL Normal 3.77-5.28 [facility] Internal Medicine; [facility] Work Phone: Comment on above: PATIENT WAS FASTINGP ERFORMED BY: ANCELMO [facility] Oavkfa3327 [facility] [id number] Information: [id number] CC:[id number] 1 RBC Auto #/vol (Bld) 3.95 {x10E6/uL} Normal 3.77-5.28 [facility] Internal Medicine Work Phone: WBC (Bld) [#/Vol] 6.9 {x10E3/uL} Normal 3.4-10.8 [facility] Internal Medicine Work Phone: Comment on above: PATIENT WAS FASTINGP ERFORMED BY: ANCELMO [facility]6370 [facility] [id number] Information: [id number] CC:[id number] 1 WBC (Bld) [#/Vol] 6.9 10*3/uL Normal 3.4-10.8 [facility] Internal Medicine; [facility] Internal Medicine Work Phone: Comment on above: PATIENT WAS FASTINGP ERFORMED BY: ANCELMO [place] 3842370 [facility] [id number] Information: [id number] CC:[id number] 1 WBC Auto #/vol (Bld) 6.9 {x10E3/uL} Normal 3.4-10.8 [facility] Work Phone: LIPID PANEL ([id number])Ordered B y: Rotor Casting Machine Setup Operator on 01-07-2014 Cholesterol in HDL mass conc 45 mg/dL Normal [facility] Work Phone: Comment on above: According to ATP-III Guidelines, HDL-C >59 mg/dL is considered anegative risk factor for CHD. PATIENT WAS FASTINGP ERFORMED BY: ANCELMO [facility] Thvtdw5088 [address] iCabbiblin [place] [id number] Cholesterol in LDL mass conc 91 mg/dL Normal 0-99 [facility] Work Phone: Comment on above: PATIENT WAS FASTINGP ERFORMED BY: ANCELMO LabVoxy Ovugat4361 [address] iCabbiLifeCare Hospitals of [facility] [place] [id number] Cholesterol in LDL/Cholesterol in HDL mass ratio 2.0 {ratio_units} Normal 0.0-3.2 [facility] Work Phone: Comment on above: LDL/HDL Ratio Men Wo men 1/2 Avg.Risk 1.0 1.5 Avg.Risk 3.6 3.2 2X Avg.Risk 6.2 5.0 3X Avg.Risk 8.0 6.1 PATIENT WAS FASTINGP ERFORMED BY: ANCELMO LabClonerp Hpjiwi0200 ConfortVisuelLifeCare Hospitals [facility] [place] [id number] Cholesterol in VLDL mass conc 16 mg/dL Normal 5-40 [facility] Work Phone: Comment on above: PATIENT WAS FASTINGP ERFORMED BY: ANCELMO [facility] Boaptp4620 [address] iCabbib[place] [id number] Cholesterol mass conc 152 mg/dL Normal 100-199 Com prehensive Internal Medicine Work Phone: Comment on above: PATIENT WAS FASTINGP ERFORMED BY: ANCELMO [facility] Gndkrx6435 [address] iCabbiblin [place] [id number] Triglyceride mass conc 81 mg/dL Normal 0-149 Co mprehensive Internal Medicine Work Phone: Comment on above: PATIENT WAS FASTINGP ERFORMED BY: ANCELMO [facility] Zbjgdn7425 Gilman RoadDublin [place] [id number] METABOLIC PANEL, COMPREHENSI VE ([id number])Ordered By: Rotor Casting Machine Setup Operator on 01-07-2014 Albumin mass conc 4.4 g/dL Normal 3.6-4.[address] [facility] Internal Medicine Work Phone: Comment on above: PATIENT WAS FASTINGP ERFORMED BY: CB [facility] Obqucm8015 Gilman RoadDublin [place] [id number] Albumin/Globulin mass ratio 2.2 {ratio} Normal 1.1-2.5 [facility] Work Phone: Comment on above: PATIENT WAS FASTINGP ERFORMED BY: CB [facility] Rzqfju7263 Gilman RoadDublin [place] [id number] ALP [Catalytic activity/Vol] 84 U/L Normal 39-117 [facility]; [facility] Work Phone: Comment on above: PATIENT WAS FASTINGP ERFORMED BY: CB [facility] Hfjgnh6915 [address] RoadDublin [place] [id number] ALP enzyme act/vol 84 [iU]/L Normal 39-117 [facility] Internal Medicine Work Phone: Comment on above: PATIENT WAS FASTINGP ERFORMED BY: ANCELMO [facility] Iqcvfv2073 [address] RoadDublin [place] [id number] ALT [Catalytic activity/Vol] 13 U/L Normal 0-32 [facility]; [facility] Work Phone: Comment on above: PATIENT WAS FASTINGP ERFORMED BY: CB [facility] Kzmfog9095 [address] RoadDublin [place] [id number] ALT enzyme act/vol 13 [iU]/L Normal 0-32 [facility] Internal Medicine Work Phone: Comment on above: PATIENT WAS FASTINGP ERFORMED BY: CB [facility] Yqmtel5987 [address] RoadDublin [place] [id number] AST [Catalytic activity/Vol] 11 U/L Normal 0-40 [facility]; [facility] Work Phone: Comment on above: PATIENT WAS FASTINGP ERFORMED BY: ANCELMO [facility] Ycwldv6170 [address] RoadDublin [place] [id number] AST enzyme act/vol 11 [iU]/L Normal 0-40 Compre [facility] Internal Medicine Work Phone: Comment on above: PATIENT WAS FASTINGP ERFORMED BY: ANCELMO [facility] Xuzrfv2735 [address] RoadDublin [place] [id number] Bilirubin mass conc 0.3 mg/dL Normal 0.0-1.2 Compr ensive Internal Medicine Work Phone: Comment on above: PATIENT WAS FASTINGP ERFORMED BY: ANCELMO [facility] Iqozsx4880 [address] RoadDublin [place] [id number] Calcium mass conc 9.7 mg/dL Normal 8.6-10.2 Compreh [facility] Internal [facility] Work Phone: Comment on above: PATIENT WAS FASTINGP ERFORMED BY: ANCELMO LabEliane BirminghamDsntuf0541 [address] RoadDublin [place] [id number] Chloride molar conc 102 mmol/L Normal 97-108 Compr [facility] Internal Medicine Work Phone: Comment on above: PATIENT WAS FASTINGP ERFORMED BY: ANCELMO LabEliane BirminghamZotisu2375 [address] Roadblin [place] [id number] CO2 molar conc 24 mmol/L Normal 18-29 Comprehens [facility] Internal Medicine Work Phone: Comment on above: PATIENT WAS FASTINGP ERFORMED BY: ANCELMO LabEliane BirminghamTxfhwu4407 [address] RoadDublin [place] [id number] Creatinine mass conc 0.88 mg/dL Normal 0.57-1.00 Comp [facility] Internal Medicine Work Phone: Comment on above: PATIENT WAS FASTINGP ERFORMED BY: ANCELMO LabCosharon BirminghamOphipe58[address] RoadDublin [place] [id number] GFR/1.73 sq M predicted among blacks CKD-EPI vol rate/area (S/P/Bld) 83 mL/min/1.73 Normal Comprehe ive Internal Medicine Work Phone: Comment on above: PATIENT WAS FASTINGP ERFORMED BY: ANCELMO LabCosharon Nzajmy8751 [address] Roadblin [place] [id number] GFR/1.73 sq M predicted among non-blacks CKD-EPI vol rate/area (S/P/Bld) 72 mL/min/1.73 Normal [facility] Work Phone: Comment on above: PATIENT WAS FASTINGP ERFORMED BY: [facility] Dwyyke9618 [facility] [id number] Globulin (S) [Mass/Vol] 2.0 g/dL Normal 1.5-4.5 C omprehensive Internal Medicine Work Phone: Comment on above: PATIENT WAS FASTINGP ERFORMED BY: [facility] Xfmblt9282 [facility] [id number] Globulin Calculated mass conc (S) 2.0 g/dL Normal 1.5-4.5 [facility] Work Phone: Glucose mass conc 98 mg/dL Normal 65-99 Compreh ensive Internal Medicine Work Phone: Comment on above: PATIENT WAS FASTINGP ERFORMED BY: [facility] Rxutyo5210 [facility] [id number] Potassium molar conc 4.4 mmol/L Normal 3.5-5.2 Comp rehensive Internal Medicine Work Phone: Comment on above: PATIENT WAS FASTINGP ERFORMED BY: [facility] Acjgqf7497 [facility] [id number] Protein mass conc 6.4 g/dL Normal 6.0-8.5 Compreh ensive Internal Medicine Work Phone: Comment on above: PATIENT WAS FASTINGP ERFORMED BY: [facility] Ibyage1087 [facility] [id number] Sodium molar conc 142 mmol/L Normal 134-144 Compreh ensive Internal Medicine Work Phone: Comment on above: PATIENT WAS FASTINGP ERFORMED BY: [facility] Vbdvly0[address] [facility]in [place] [id number] Urea nitrogen mass conc 11 mg/dL Normal 8-27 C omprehensive Internal Medicine Work Phone: Comment on above: PATIENT WAS FASTINGP ERFORMED BY: [facility] Yeixpf7841 [facility] [id number] Urea nitrogen/Creatinine mass ratio 13 mg/mg Normal 01-02 [facility] Work Phone: Comment on above: PATIENT WAS FASTINGP ERFORMED BY: [facility] Qnsmpi2893 [facility] [id number] MICROALBUMINOrdered By: Syst em Operating Systems Programmer on 01-07-2014 Albumin DL <= 20 mg/L mass conc (U) 3.3 ug/mL Normal 0.0-17.0 [facility] Work Phone: Comment on above: PATIENT WAS FASTINGP ERFORMED BY: [facility] Ezlzvr7569 [facility] [id number] Albumin/Creatinine mass ratio (U) 4.2 {mg/g_creat} Normal 0.0-30.0 [facility] Work Phone: Comment on above: PATIENT WAS FASTINGP ERFORMED BY: [facility] Yutpmt1956 [facility] [id number] Creatinine mass conc (U) 77.9 mg/dL Normal 15.0-278.0 [facility] Work Phone: Comment on above: PATIENT WAS FASTINGP ERFORMED BY: [facility] Iasowo7688 [facility] [id number] Blood Glucose , Office ([phone])Ordered By: BEBO Barry on 06-19-2013 Glucose Glucometer molar conc (BldC) 118 1 Normal [facility] Work Phone: HgA1C , Office ([phone])Ordere d By: BEBO Barry on 06-19-2013 Hemoglobin A1c/Hemoglobin.total mass fraction (Bld) 6.0 % Normal 4.6 - 7.1 Comprehensiv e Internal Medicine Work Phone: CBC WITH MANUAL DIFF ([phone]) Ordered By: Rotor Casting Machine Setup Operator on 12-27-2012 Basophils (Bld) [#/Vol] 0.0 {x10E3/uL} Normal 0.0-0.2 [facility] Work Phone: Comment on above: copy to Dr. de la fuente; P ATIENT WAS FASTINGPERFORMED BY: CB [facility] Mepwtt6193 [facility] [id number] Information: [id number] Basophils (Bld) [#/Vol] 0.0 10*3/uL Normal 0.0-0.2 [facility]; [facility] Work Phone: Comment on above: copy to Dr. de la fuente; P ATIENT WAS FASTINGPERFORMED BY: CB [facility] Swqtwt3958 [facility] [id number] Information: [id number] Basophils Auto #/vol (Bld) 0.0 {x10E3/uL} Normal 0.0-0.2 [facility] Work Phone: Basophils/100 WBC (Bld) 0 % Normal 0-3 C omprehensive Internal Medicine Work Phone: Comment on above: copy to Dr. de la fuente; P ATIENT WAS FASTINGPERFORMED BY: [facility] Ufdwqd4807 [facility] [id number] Information: [id number] Basophils/100 WBC Auto (Bld) 0 % Normal 0-3 [facility] Work Phone: Eosinophils (Bld) [#/Vol] 0.1 {x10E3/uL} Normal 0.0-0.4 [facility] Work Phone: Comment on above: copy to Dr. de la fuente; P ATIENT WAS FASTINGPERFORMED BY: CB [facility] Ramcit9245 [facility] [id number] Information: [id number] Eosinophils (Bld) [#/Vol] 0.1 10*3/uL Normal 0.0-0.4 [facility]; [facility] Work Phone: Comment on above: copy to Dr. de la fuente; P ATIENT WAS FASTINGPERFORMED BY: CB [facility] Hbzmnp0440 [facility] [id number] Information: [id number] Eosinophils Auto #/vol (Bld) 0.1 {x10E3/uL} Normal 0.0-0.4 [facility] Work Phone: Eosinophils/100 WBC (Bld) 1 % Normal 0-5 [facility] Work Phone: Comment on above: copy to Dr. de la fuente; P ATIENT WAS FASTINGPERFORMED BY: [facility]stuffLifeCare [facility] [place] [id number] Information: [id number] Eosinophils/100 WBC Auto (Bld) 1 % Normal 0-5 [facility] Work Phone: Erythrocyte distribution width (RBC) [Ratio] 14.2 % Normal 12.3-15.4 [facility] Work Phone: Comment on above: copy to Dr. de la fuente; P ATIENT WAS FASTINGPERFORMED BY: [facility]stuffLifeCare [facility] [place] [id number] Information: [id number] Erythrocyte distribution width Auto Ratio (RBC) 14.2 % Normal 12.3-15.4 [facility] Work Phone: Hematocrit (Bld) [Volume fraction] 38.1 % Normal 34.0-46.6 [facility] Work Phone: Comment on above: copy to Dr. de la fuente; P ATIENT WAS FASTINGPERFORMED BY: Sigasi70 ConfortVisuelLifeCare Hospit[facility] [place] [id number] Information: [id number] Hematocrit Auto Volume Fraction (Bld) 38.1 % Normal 34.0-46.6 [facility] Work Phone: Hemoglobin mass conc (Bld) 12.6 g/dL Normal 11.1-15.9 [facility] Work Phone: Comment on above: copy to Dr. de la fuente; P ATIENT WAS FASTINGPERFORMED BY: Sigasi70 ConfortVisuelDiatherix Laboratories [place] [id number] Information: [id number] Immature granulocytes #/vol (Bld) 0.0 {x10E3/uL} Normal 0.0-0.1 [facility] Work Phone: Comment on above: copy to Dr. de la fuente; P ATIENT WAS FASTINGPERFORMED BY: [facility] Fgzuvz8773 [facility] [id number] Information: [id number] Immature granulocytes (Bld) [#/Vol] 0.0 10*3/uL Normal 0.0-0.1 [facility]; [facility] Work Phone: Comment on above: copy to Dr. de la fuente; P ATIENT WAS FASTINGPERFORMED BY: CB [facility] Mdnkbc5412 [facility] [id number] Information: [id number] Immature granulocytes/100 WBC (Bld) 0 % Normal 0-2 [facility] Work Phone: Comment on above: copy to Dr. de la fuente; P ATIENT WAS FASTINGPERFORMED BY: CB [facility] Zsofos1806 [facility] [id number] Information: [id number] Lymphocytes (Bld) [#/Vol] 2.4 {x10E3/uL} Normal 0.7-3.1 [facility] Work Phone: Comment on above: copy to Dr. de la fuente; P ATIENT WAS FASTINGPERFORMED BY: CB [facility] Ygyyjm4385 [facility] [id number] Information: [id number] Lymphocytes (Bld) [#/Vol] 2.4 10*3/uL Normal 0.7-3.1 [facility]; [facility] Work Phone: Comment on above: copy to Dr. de la fuente; P ATIENT WAS FASTINGPERFORMED BY: CB [facility] Qnbuqk4105 [facility] [id number] Information: [id number] Lymphocytes Auto #/vol (Bld) 2.4 {x10E3/uL} Normal 0.7-3.1 [facility] Work Phone: Lymphocytes/100 WBC (Bld) 35 % Normal 14- [facility] Work Phone: Comment on above: copy to Dr. de la fuente; P ATIENT WAS FASTINGPERFORMED BY: Sigasi70 [facility] [id number] Information: [id number] Lymphocytes/100 WBC Auto (Bld) 35 % Normal 14-46 [facility] Work Phone: MCH (RBC) [Entitic mass] 31.0 pg Normal 26.6-33.0 [facility] Work Phone: Comment on above: copy to Dr. de la fuente; P ATIENT WAS FASTINGPERFORMED BY: [facility]erstuffLifeCare [facility] [place] [id number] Information: [id number] MCH Auto Entitic mass (RBC) 31.0 pg Normal 26.6-33.0 [facility] Work Phone: MCHC (RBC) [Mass/Vol] 33.1 g/dL Normal 31.5-35.7 [facility] Internal [facility] Work Phone: Comment on above: copy to Dr. de la fuente; P ATIENT WAS FASTINGPERFORMED BY: Sigasi70 [facility] [id number] Information: [id number] MCHC Auto mass conc (RBC) 33.1 g/dL Normal 31.5-35.7 [facility] Work Phone: MCV (RBC) [Entitic vol] 94 fL Normal 79-97 C [facility]mp[facility] Internal [facility] Work Phone: Comment on above: copy to Dr. de la fuente; P ATIENT WAS FASTINGPERFORMED BY: Sigasi70 ConfortVisuelLifeCare [facility] [place] [id number] Information: [id number] MCV Auto Entitic volume (RBC) 94 fL Normal 79-97 [facility] Work Phone: Monocytes (Bld) [#/Vol] 0.5 {x10E3/uL} Normal 0.1-0.9 [facility] Work Phone: Comment on above: copy to Dr. de la fuente; P ATIENT WAS FASTINGPERFORMED BY: ANCELMO [employer] Aauabk6775 [facility] [id number] Information: [id number] Monocytes (Bld) [#/Vol] 0.5 10*3/uL Normal 0.1-0.9 [facility]; [facility] Work Phone: Comment on above: copy to Dr. de la fuente; P ATIENT WAS FASTINGPERFORMED BY: ANCELMO [employer] Ttvkbo5285 [facility] [id number] Information: [id number] Monocytes Auto #/vol (Bld) 0.5 {x10E3/uL} Normal 0.1-0.9 [facility] Work Phone: Monocytes/100 WBC (Bld) 7 % Normal 4-12 C omprehensive Internal Medicine Work Phone: Comment on above: copy to Dr. de la fuente; P ATIENT WAS FASTINGPERFORMED BY: [employer] Mrofru8565 [facility] [id number] Information: [id number] Monocytes/100 WBC Auto (Bld) 7 % Normal 4-12 [facility] Work Phone: Neutrophils (Bld) [#/Vol] 3.8 {x10E3/uL} Normal 1.4-7.0 [facility] Work Phone: Comment on above: copy to Dr. de la fuente; P ATIENT WAS FASTINGPERFORMED BY: [employer] Xlhsqs1776 [facility] [id number] Information: [id number] Neutrophils (Bld) [#/Vol] 3.8 10*3/uL Normal 1.4-7.0 [facility]; [facility] Work Phone: Comment on above: copy to Dr. de la fuente; P ATIENT WAS FASTINGPERFORMED BY: CB [facility] Rncbsi2712 [facility] [id number] Information: [id number] Neutrophils Auto #/vol (Bld) 3.8 {x10E3/uL} Normal 1.4-7.0 [facility] Work Phone: Neutrophils/100 WBC (Bld) 57 % Normal 40-74 [facility] Work Phone: Comment on above: copy to Dr. de la fuente; P ATIENT WAS FASTINGPERFORMED BY: CB [facility] Zypiyl5425 [facility] [id number] Information: [id number] Neutrophils/100 WBC Auto (Bld) 57 % Normal 40-74 [facility] Work Phone: Platelets (Bld) [#/Vol] 359 {x10E3/uL} Normal 155-379 [facility] Work Phone: Comment on above: copy to Dr. de la fuente; P ATIENT WAS FASTINGPERFORMED BY: CB [facility] Unudvg5877 [facility] [id number] Information: [id number] Platelets (Bld) [#/Vol] 359 10*3/uL Normal 155-379 [facility]; [facility] Internal Medicine Work Phone: Comment on above: copy to Dr. de la fuente; P ATIENT WAS FASTINGPERFORMED BY: CB [facility] Tsuuhk2485 [facility] [id number] Information: [id number] Platelets Auto #/vol (Bld) 359 {x10E3/uL} Normal 155-379 [facility] Work Phone: RBC (Bld) [#/Vol] 4.06 {x10E6/uL} Normal 3.77-5.28 [facility] Internal Medicine Work Phone: Comment on above: copy to Dr. de la fuente; P ATIENT WAS FASTINGPERFORMED BY: CB [facility] Ojnwoi0147 [facility] [id number] Information: [id number] RBC (Bld) [#/Vol] 4.06 10*6/uL Normal 3.77-5.28 [facility] ehensive Internal Medicine; [facility] Work Phone: Comment on above: copy to Dr. de la fuente; Devi ELLIOTT WAS FASTINGPERFORMED BY: [facility] Wkqafz3856 [facility] [id number] Information: [id number] RBC Auto #/vol (Bld) 4.06 {x10E6/uL} Normal 3.77-5.28 [facility] Work Phone: WBC (Bld) [#/Vol] 6.7 {x10E3/uL} Normal 3.4-10.8 [facility] Internal Medicine Work Phone: Comment on above: copy to Dr. de la fuente; Devi ELLIOTT WAS FASTINGPERFORMED BY: LabClonerp Hgjclh1908 [facility] [id number] Information: [id number] WBC (Bld) [#/Vol] 6.7 10*3/uL Normal 3.4-10.8 [facility] Internal Medicine; [facility] Work Phone: Comment on above: copy to Dr. de la fuente; Devi ELLIOTT WAS FASTINGPERFORMED BY: LabClone Qrgwze4792 [facility] [id number] Information: [id number] WBC Auto #/vol (Bld) 6.7 {x10E3/uL} Normal 3.4-10.8 [facility] Internal Medicine Work Phone: LIPID PANEL ([id number])Ordered B y: Rotor Casting Machine Setup Operator on 12-27-2012 Cholesterol in HDL mass conc 48 mg/dL Normal [facility] Work Phone: Comment on above: According to ATP-III Guidelines, HDL-C >59 mg/dL is considered anegative risk factor for CHD. PATIENT WAS FASTINGP ERFORMED BY: LabClonerp Lynmln4565 [facility] [id number] Cholesterol in LDL mass conc 91 mg/dL Normal 0-99 [facility] Work Phone: Comment on above: PATIENT WAS FASTINGP ERFORMED BY: ANCELMO LabEliane Hickman6370 [address] Roadblin [place] [id number] Cholesterol in LDL/Cholesterol in HDL mass ratio 1.9 {ratio_units} Normal 0.0-3.2 [facility] Work Phone: Comment on above: PATIENT WAS FASTINGP ERFORMED BY: ANCELMO LabCosharon BirminghamSbcfhi7635 [address] [facility] [id number] Cholesterol in VLDL mass conc 18 mg/dL Normal 5-40 [facility] Work Phone: Comment on above: PATIENT WAS FASTINGP ERFORMED BY: ANCELMO Santa Birminghamlin6370 [address] [facility] [id number] Cholesterol mass conc 157 mg/dL Normal 100-199 [facility] prehensive Internal Medicine Work Phone: Comment on above: PATIENT WAS FASTINGP ERFORMED BY: ANCELMO LabEliane BirminghamHjhwlk7272 [address] [facility] [id number] Triglyceride mass conc 88 mg/dL Normal 0-149 [facility] Internal Medicine Work Phone: Comment on above: PATIENT WAS FASTINGP ERFORMED BY: ANCELMO Santa Birminghamlin6370 [facility] [id number] METABOLIC PANEL, COMPREHENSI VE ([id number])Ordered By: Rotor Casting Machine Setup Operator on 12-27-2012 Albumin mass conc 4.2 g/dL Normal 3.5-5.5 Compreh ensive Internal Medicine Work Phone: Comment on above: PATIENT WAS FASTINGP ERFORMED BY: ANCELMO [facility] Sowxnz8204 [address] [facility] [place] [id number] Albumin/Globulin mass ratio 1.8 {ratio} Normal 1.1-2.5 [facility] Work Phone: Comment on above: PATIENT WAS FASTINGP ERFORMED BY: ANCELMO [facility] Ewkbeo4431 [address] [facility] [place] [id number] ALP [Catalytic activity/Vol] 83 U/L Normal 39-117 [facility]; [facility] Internal Medicine Work Phone: Comment on above: PATIENT WAS FASTINGP ERFORMED BY: ANCELMO LabCosharon HickmanYgydyl4947 Gilman RoadDublin [place] [id number] ALP enzyme act/vol 83 [iU]/L Normal 39-117 [facility] Internal Medicine Work Phone: Comment on above: PATIENT WAS FASTINGP ERFORMED BY: LabEliane BirminghamFmmybw6886 [address] RoadDublin [place] [id number] ALT [Catalytic activity/Vol] 16 U/L Normal 0-32 [facility] Internal Medicine; [facility] Internal Medicine Work Phone: Comment on above: PATIENT WAS FASTINGP ERFORMED BY: ANCELMO LabCarlos Gvggwh6717 Gil[address] RoadDublin [place] [id number] ALT enzyme act/vol 16 [iU]/L Normal 0-32 [facility] Internal Medicine Work Phone: Comment on above: PATIENT WAS FASTINGP ERFORMED BY: LabCarlos Xzzkpc3300 [address] RoadDublin [place] [id number] AST [Catalytic activity/Vol] 23 U/L Normal 0-40 [facility] Internal Medicine; [facility] Internal Medicine Work Phone: Comment on above: PATIENT WAS FASTINGP ERFORMED BY: ANCELMO Birminghamlin6370 [address] RoadDublin [place] [id number] AST enzyme act/vol 23 [iU]/L Normal 0-40 [facility] Internal Medicine Work Phone: Comment on above: PATIENT WAS FASTINGP ERFORMED BY: LabCo Tdactm6668 [address] RoadDublin [place] [id number] Bilirubin mass conc 0.3 mg/dL Normal 0.0-1.2 [facility] Internal Medicine Work Phone: Comment on above: PATIENT WAS FASTINGP ERFORMED BY: ANCELMO LabCo Wbimvq6874 [address] RoadDublin [place] [id number] Calcium mass conc 9.4 mg/dL Normal 8.7-10.2 [facility] Internal Medicine Work Phone: Comment on above: PATIENT WAS FASTINGP ERFORMED BY: CB [facility] Iqbgej9750 [address] RoadDublin [place] [id number] Chloride molar conc 101 mmol/L Normal 97-108 Compr ehensive Internal Medicine Work Phone: Comment on above: PATIENT WAS FASTINGP ERFORMED BY: CB [facility] Yuixxe0444 [address] RoadDublin [place] [id number] CO2 molar conc 22 mmol/L Normal 19-28 Comprehens daniel Internal Medicine Work Phone: Comment on above: PATIENT WAS FASTINGP ERFORMED BY: CB [facility] Bulwco7388 [address] RoadDublin [place] [id number] Creatinine mass conc 0.74 mg/dL Normal 0.57-1.00 [facility] Internal Medicine Work Phone: Comment on above: PATIENT WAS FASTINGP ERFORMED BY: CB [facility] Vcznen6444 [address] RoadDublin [place] [id number] GFR/1.73 sq M predicted among blacks CKD-EPI vol rate/area (S/P/Bld) 103 mL/min/1.73 Normal Comprehe [facility] Internal Medicine Work Phone: Comment on above: PATIENT WAS FASTINGP ERFORMED BY: CB [facility] Dmnkuz7152 [address] RoadDublin [place] [id number] GFR/1.73 sq M predicted among non-blacks CKD-EPI vol rate/area (S/P/Bld) 89 mL/min/1.73 Normal [facility] Work Phone: Comment on above: PATIENT WAS FASTINGP ERFORMED BY: CB [facility] Pytafc6590 [address] RoadDublin [place] [id number] Globulin (S) [Mass/Vol] 2.3 g/dL Normal 1.5-4.5 C omprehensive Internal Medicine Work Phone: Comment on above: PATIENT WAS FASTINGP ERFORMED BY: CB [facility] Wgioos0704 [address] RoadDublin [place] [id number] Globulin Calculated mass conc (S) 2.3 g/dL Normal 1.5-4.5 [facility] Work Phone: Glucose mass conc 91 mg/dL Normal 65-99 Compreh ensive Internal Medicine Work Phone: Comment on above: PATIENT WAS FASTINGP ERFORMED BY: ANCELMO Santa Hickman6370 [facility] [id number] Potassium molar conc 4.4 mmol/L Normal 3.5-5.2 Comp rehensive Internal Medicine Work Phone: Comment on above: PATIENT WAS FASTINGP ERFORMED BY: ANCELMO Dionne Xjfmbh8725 [address] [facility] [id number] Protein mass conc 6.5 g/dL Normal 6.0-8.5 Compreh ensive Internal Medicine Work Phone: Comment on above: PATIENT WAS FASTINGP ERFORMED BY: ANCELMO Dionne Raggfo3149 [facility] [id number] Sodium molar conc 138 mmol/L Normal 134-144 Compreh ensive Internal Medicine Work Phone: Comment on above: PATIENT WAS FASTINGP ERFORMED BY: ANCELMO ArleneHeartland Behavioral Health Services Kyrtrd9274 [facility] [id number] Urea nitrogen mass conc 11 mg/dL Normal 6-24 C omprehensive Internal Medicine Work Phone: Comment on above: PATIENT WAS FASTINGP ERFORMED BY: ANCELMO Santa Birminghamlin6370 [facility] [id number] Urea nitrogen/Creatinine mass ratio 15 mg/mg Normal 9-23 [facility] Work Phone: Comment on above: PATIENT WAS FASTINGP ERFORMED BY: ANCELMO ArleneBronson [facility]view Hospital6370 [facility] [id number] MICROALBUMINOrdered By: Syst em Operating Systems Programmer on 12-27-2012 Albumin DL <= 20 mg/L mass conc (U) 4.8 ug/mL Normal 0.0-17.0 [facility] Work Phone: Comment on above: PATIENT WAS FASTINGP ERFORMED BY: ANCELMO LabHeartland [facility] Ujylli0275 [facility] [id number] Albumin/Creatinine mass ratio (U) 14.0 {mg/g_creat} Normal 0.0-30.0 [facility] Work Phone: Comment on above: PATIENT WAS FASTINGP ERFORMED BY: iJigg.com6370 [facility] [id number] Creatinine mass conc (U) 34.2 mg/dL Normal 15.0-278.0 [facility] Work Phone: Comment on above: PATIENT WAS FASTINGP ERFORMED BY: [employer] LabCarta Worldwide6370 [facility] [id number] Blood Glucose , Office ([phone])Ordered By: Mel Le on 12-19-2012 Glucose Glucometer molar conc (BldC) 117 1 Normal [facility] Work Phone: Comment on above: NOT FASTING HgA1C , Office ([phone])Ordere d By: Kait Archuleta on 12-19-2012 Hemoglobin A1c/Hemoglobin.total mass fraction (Bld) 6.0 % Normal 4.6 - 7.1 Comprehensiv e Internal Medicine Work Phone: TSH ([phone])Ordered By: Yaae m [employer] Programmer on 07-07-2012 Thyrotropin Qn 1.360 {uIU/mL} Normal 0.450-4.50 0 [facility] Work Phone: Comment on above: PATIENT WAS FASTINGP ERFORMED BY: [email or web address] [facility] [id number] Information: [id number] Blood Glucose , Office ([phone])Ordered By: BEBO Barry on 02-11-2012 Glucose Glucometer molar conc (BldC) 116 1 Normal [facility] Work Phone: HgA1C , Office ([phone])Ordere d By: Diana Prater on 02-11-2012 Hemoglobin A1c/Hemoglobin.total mass fraction (Bld) 5.9 % Normal 4.6 - 7.1 [facility] Work Phone: L/S SPINE,MIN 4 VIEWSOrdered By: Rotor Casting Machine Setup Operator on 07-09-2011 L/S SPINE,MIN 4 VIEWS See Note Normal [facility] Work Phone: Comment on above: PROCEDURE: X-RAY - L UMBAR SPINE REASON FOR EXAM: Female, 56 years old. Low back pain, lifting injury,right leg pain TECHNIQUE: Five views of the lumbar spine were obtained. COMPARISON: None FINDINGS:Normal lumbar lordosis. There is no substantial scoliosis. There are 6lumbar type for juvenile bodies. T12-L1: Normal disc height. Normal endplates. Normal alignment of thevertebrae. L1-2: Normal disc height. Normal endplates. Normal alignment of thevertebrae. L2-3: Normal disc height. Normal endplates. Normal alignment of thevertebrae. L3-4: Normal disc height. Normal endplates. Normal alignment of thevertebrae. L4-5: Mild loss of disk space with mild degree of facet arthropathy. L5-L6: Mild loss of disk space with mild degree of facet arthropathy. L6-S1: Transitional anatomy of L6 with some sacralization. There is atherosclerotic calcification of the abdominal aorta without ademonstrated aneurysm. 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 Signed:Rober Parker M.D.July 09, 2011 at 7:24:02 PM EDTElectronically Signed GB/GB Professional Interpretation Provided By: [facility] [employer], , To consult with a radiologist regarding this report, please call our [id number] line @ Dictated on 07/09/112 by Rober Parker MD BTranscribed on 07/09/111928 by ITS IMPORTSign by Rober Parker MD on 07/09/111929 Sign by: Rober Parker MD Culture, urine Bacteria identified Cx Nom (U) Mixed Gram Pos & Gram Neg Org [facility] Work Phone: EP Panel Gastrointestinal pathogens panel ANAYA+probe (Stl) [facility] Work Phone: Laboratory - Microbiology an d Antimicrobial susceptibility Bacteria identified Cx Nom (Bld) No growth in 5 days. [facility] Work Phone: Respiratory pathogens DNA and RNA 12b panel ANAYA+probe (Unsp spec) [facility] Work Phone: No Panel Information Enteric Bacteriology [facility] Work Phone: Respiratory Panel (PCR) [facility] Work Phone: SARS-CoV-2 & FLU Antigen (Rapid) [facility] Work Phone: Vital Signs Date Time Vital Sign Value Performing Clinician Facility 10-11-2024 07:02-0400 Body height 162.[address] Mable Ford DO Work Phone: [facility] 10-11-2024 07:02-0400 Body mass index (BMI) [Ratio] 28.6 kg/m2 Dr. Mable Ford DO Work Phone: [facility] 10-11-2024 07:02-0400 Body weight 75.[address] Mable Ford DO Work Phone: [facility] 10-11-2024 07:02-0400 Diastolic blood pressure 75 mm[Hg] Dr. Mable Ford DO Work Phone: [facility] 10-11-2024 07:02-0400 Heart rate 51 /min Dr. Mable Ford DO Work Phone: [facility] 10-11-2024 07:02-0400 Respiratory rate 18 /min Dr. Mable Ford DO Work Phone: [facility] 10-11-2024 07:02-0400 SaO2% (BldA) [Mass fraction] 97 % Dr. Mable Ford DO Work Phone: [facility] 10-11-2024 07:02-0400 Systolic blood pressure 126 mm[Hg] Dr. Mable Ford DO Work Phone: [facility] 12-03-2022 10:23-0400 Body height 157.48 cm BEBO Barry LPN [facility]; [facility] Work Phone: 12-03-2022 10:23-0400 Body mass index (BMI) [Ratio] 30.36 kg/m2 BEBO Barry LPN [facility]; [facility] Work Phone: 12-03-2022 10:23-0400 Body surface area Derived from formula 1.77 m2 BEBO Barry LPN [facility]; [facility] Work Phone: 12-03-2022 10:23-0400 Body temperature 97.6 [degF] BEBO Barry LPN [facility]; [facility] Work Phone: 12-03-2022 10:23-0400 Body weight 75.3 kg BEBO Barry LPN [facility]; [facility] Work Phone: 12-03-2022 10:23-0400 Diastolic blood pressure 70 mm[Hg] BEBO Barry LPN [facility]; [facility] Work Phone: 12-03-2022 10:23-0400 Heart rate 57 /min BBEO Barry LPN [facility]; [facility] Work Phone: 12-03-2022 10:23-0400 Respiratory rate 20 /min BEBO Barry LPN [facility]; [facility] Work Phone: 12-03-2022 10:23-0400 SaO2% (BldA) [Mass fraction] 94 % BEBO Barry LPN [facility]; [facility] Work Phone: 12-03-2022 10:23-0400 Systolic blood pressure 114 mm[Hg] BEBO Barry LPN [facility]; [facility] Work Phone: 08-02-2022 10:04-0400 Body height 157.48 cm Lotus Cain MA [facility]; [facility] Work Phone: 08-02-2022 10:04-0400 Body mass index (BMI) [Ratio] 30.82 kg/m2 Lotus Cain MA [facility]; [facility] Work Phone: 08-02-2022 10:04-0400 Body surface area Derived from formula 1.78 m2 Lotus Cain MA [facility]; [facility] Work Phone: 08-02-2022 10:04-0400 Body temperature 97.1 [degF] Lotus Cain MA [facility]; [facility] Work Phone: 08-02-2022 10:04-0400 Body weight 76.43 kg Lotus Cain MA [facility]; [facility] Work Phone: 08-02-2022 10:04-0400 Diastolic blood pressure 68 mm[Hg] Lotus Cain MA [facility]; [facility] Work Phone: 08-02-2022 10:04-0400 Heart rate 49 /min Lotus Cain MA [facility]; [facility] Work Phone: 08-02-2022 10:04-0400 Respiratory rate 16 /min Lotus Cain MA [facility]; [facility] Work Phone: 08-02-2022 10:04-0400 SaO2% (BldA) [Mass fraction] 97 % Lotus Cain MA [facility]; [facility] Work Phone: 08-02-2022 10:04-0400 Systolic blood pressure 110 mm[Hg] Lotus Cain MA [facility]; [facility] Work Phone: 03-15-2022 10:07-0500 Body height 157.48 cm [facility]; [facility] Work Phone: 03-15-2022 10:07-0500 Body mass index (BMI) [Ratio] 30.27 kg/m2 [facility]; [facility] Work Phone: 03-15-2022 10:07-0500 Body surface area Derived from formula 1.76 m2 Kandi Calhoun [facility]; [facility] Work Phone: 03-15-2022 10:07-0500 Body temperature 96.9 [degF] [facility]; [facility] Work Phone: 03-15-2022 10:07-0500 Body weight [facility].07 [facility]; [facility] Work Phone: 03-15-2022 10:07-0500 Diastolic blood pressure 70 mm[Hg] [facility]; [facility] Work Phone: 03-15-2022 10:07-0500 Heart rate 47 /min [facility]; [facility] Work Phone: 03-15-2022 10:07-0500 Respiratory rate 16 /min [facility]; [facility] Work Phone: 03-15-2022 10:07-0500 SaO2% (BldA) [Mass fraction] 96 % [facility]; [facility] Work Phone: 03-15-2022 10:07-0500 Systolic blood pressure 114 mm[Hg] [facility]; [facility] Work Phone: 01-07-2022 12:14-0500 Body height 157.48 cm [facility]; [facility] Work Phone: 01-07-2022 12:14-0500 Body mass index (BMI) [Ratio] 30.95 kg/m2 [facility]; [facility] Work Phone: 01-07-2022 12:14-0500 Body surface area Derived from formula 1.78 m2 [facility]; [facility] Work Phone: 01-07-2022 12:14-0500 Body temperature 98.8 [degF] [facility]; [facility] Work Phone: 01-07-2022 12:14-0500 Body weight 76.75 kg [facility]; [facility] Work Phone: 01-07-2022 12:14-0500 Diastolic blood pressure 78 mm[Hg] Kait [facility]; [facility] Work Phone: 01-07-2022 12:14-0500 Heart rate 53 /min [facility]; [facility] Work Phone: 01-07-2022 12:14-0500 Respiratory rate 16 /min [facility]; [facility] Work Phone: 01-07-2022 12:14-0500 SaO2% (BldA) [Mass fraction] 95 % [facility]; [facility] Work Phone: 01-07-2022 12:14-0500 Systolic blood pressure 124 mm[Hg] [facility]; [facility] Work Phone: 12-23-2021 13:51-0500 Body temperature 97.7 [degF] Dr. Chelo De Work Phone: [facility] Work Phone: 12-23-2021 13:51-0500 Diastolic blood pressure 71 mm[Hg] Dr. Chelo De Work Phone: [facility] Work Phone: 12-23-2021 13:51-0500 Heart rate 79 /min Dr. Chelo De Work Phone: [facility] Work Phone: 12-23-2021 13:51-0500 Respiratory rate 18 /min Dr. Chelo De Work Phone: [facility] Work Phone: 12-23-2021 13:51-0500 SaO2% (BldA) [Mass fraction] 99 % Dr. Chelo De Work Phone: [facility] Work Phone: 12-23-2021 13:51-0500 Systolic blood pressure 150 mm[Hg] Dr. Chelo De Work Phone: [facility] Work Phone: 12-22-2021 11:06-0500 Body height 162.[address] Chelo De Work Phone: [facility] Work Phone: 12-22-2021 11:06-0500 Body weight 75.[address] Chelo De Work Phone: [facility] Work Phone: 12-21-2021 18:29-0500 Body mass index (BMI) [Ratio] 28.5 kg/m2 Dr. Chelo De Work Phone: [facility] Work Phone: 12-21-2021 17:00-0500 Body temperature 98.6 [degF] Dr. Garrett De La Fuente Work Phone: [facility] Work Phone: 12-21-2021 17:00-0500 Diastolic blood pressure 83 mm[Hg] Dr. Garrett De La Fuente Work Phone: [facility] Work Phone: 12-21-2021 17:00-0500 Heart rate 60 /min Dr. Garrett De La Fuente Work Phone: [facility] Work Phone: 12-21-2021 17:00-0500 Respiratory rate 10 /min Dr. Garrett De La Fuente Work Phone: [facility] Work Phone: 12-21-2021 17:00-0500 SaO2% (BldA) [Mass fraction] 100 % Dr. Garrett De La Fuente Work Phone: [facility] Work Phone: 12-21-2021 17:00-0500 Systolic blood pressure 153 mm[Hg] Dr. Garrett De La Fuente Work Phone: [facility] Work Phone: 12-21-2021 11:45-0500 Body height 162.[address] Garrett De La Fuente Work Phone: [facility] Work Phone: 12-21-2021 11:45-0500 Body mass index (BMI) [Ratio] 30.9 kg/m2 Dr. Garrett De La Fuente Work Phone: [facility] Work Phone: 12-21-2021 11:45-0500 Body weight 81.[address] Garrett De La Fuente Work Phone: [facility] Work Phone: 12-03-2021 09:10-0400 Body height 157.48 cm Nathan Moses LPN [facility]; [facility] Work Phone: 12-03-2021 09:10-0400 Body mass index (BMI) [Ratio] 31.31 kg/m2 Nathan Moses LPN [facility]; [facility] Work Phone: 12-03-2021 09:10-0400 Body surface area Derived from formula 1.79 m2 Nathan Moses LPN [facility]; [facility] Work Phone: 12-03-2021 09:10-0400 Body weight 77.66 kg Nathan Moses LPN [facility]; [facility] Work Phone: 12-03-2021 09:10-0400 Diastolic blood pressure 82 mm[Hg] Nathan Moses LPN [facility]; [facility] Work Phone: Comment on above: Patient Position: Sitting; Cuff Location : Left Arm; Cuff Size: Standard 12-03-2021 09:10-0400 Heart rate 61 /min Nathan Moses LPN [facility]; [facility] Work Phone: Comment on above: Pattern: Regular 12-03-2021 09:10-0400 Respiratory rate 16 /min Nathan Moses LPN [facility]; [facility] Work Phone: Comment on above: Pattern: Unlabored 12-03-2021 09:10-0400 SaO2% (BldA) [Mass fraction] 97 % Nathan Moses LPN [facility]; [facility] Work Phone: Comment on above: Room air 12-03-2021 09:10-0400 Systolic blood pressure 140 mm[Hg] Nathan Moses LPN [facility]; [facility] Work Phone: Comment on above: Patient Position: Sitting; Cuff Location : Left Arm; Cuff Size: Standard 11-06-2021 10:13-0400 Body height 157.48 cm Nathan Moses LPN [facility]; [facility] Work Phone: 11-06-2021 10:13-0400 Body mass index (BMI) [Ratio] 31.31 kg/m2 Nathan Moses LPN [facility]; [facility] Work Phone: 11-06-2021 10:13-0400 Body surface area Derived from formula 1.79 m2 Nathan Moses LPN [facility]; [facility] Work Phone: 11-06-2021 10:13-0400 Body temperature 98.2 [degF] Nathan Moses LPN [facility]; [facility] Work Phone: Comment on above: Method: Infrared 11-06-2021 10:130400 Body weight 77.66 kg Nathan Moses LPN [facility]; [facility] Work Phone: 11-06-2021 10:13-0400 Diastolic blood pressure 70 mm[Hg] Nathan Moses LPN [facility]; [facility] Work Phone: Comment on above: Patient Position: Sitting; Cuff Location : Left Arm; Cuff Size: Standard 11-06-2021 10:13-0400 Heart rate 53 /min Nathan Moses LPN [facility]; [facility] Work Phone: Comment on above: Pattern: Regular 11-06-2021 10:13-0400 Respiratory rate 16 /min Nathan Moses LPN [facility]; [facility] Work Phone: Comment on above: Pattern: Unlabored 11-06-2021 10:13-0400 SaO2% (BldA) [Mass fraction] 98 % Nathan Josué [facility]; [facility] Work Phone: Comment on above: Room air 11-06-2021 10:13-0400 Systolic blood pressure 100 mm[Hg] Nathan Moses [facility]; [facility] Work Phone: Comment on above: Patient Position: Sitting; Cuff Location : Left Arm; Cuff Size: Standard 08-05-2021 11:22-0400 Body height 157.48 cm Mable Ford DO Work Phone: [facility]; [facility] Work Phone: Comment on above: asx with pulse 08-05-2021 11:22-0400 Body mass index (BMI) [Ratio] 31.28 kg/m2 Mable Ford DO Work Phone: [facility]; [facility] Work Phone: Comment on above: asx with pulse 08-05-2021 11:22-0400 Body surface area Derived from formula 1.79 m2 Mable Ford DO Work Phone: [facility]; [facility] Work Phone: Comment on above: asx with pulse 08-05-2021 11:22-0400 Body temperature 97.3 [degF] Mable Ford DO Work Phone: [facility]; [facility] Work Phone: Comment on above: Method: Infrared asx with pulse 08-05-2021 11:22-0400 Body weight 77.57 kg Mable Ford DO Work Phone: [facility]; [facility] Work Phone: Comment on above: asx with pulse 08-05-2021 11:22-0400 Diastolic blood pressure 78 mm[Hg] Mable Ford DO Work Phone: [facility]; [facility] Work Phone: Comment on above: Patient Position: Sitting asx with pulse 08-05-2021 11:22-0400 Heart rate 46 /min Mable Ford DO Work Phone: [facility]; [facility] Work Phone: Comment on above: Pattern: Regular asx with pulse 08-05-2021 11:22-0400 Respiratory rate 16 /min Mable Ford DO Work Phone: [facility]; [facility] Work Phone: Comment on above: Pattern: Unlabored asx with pulse 08-05-2021 11:22-0400 SaO2% (BldA) [Mass fraction] 99 % Mable Ford DO Work Phone: [facility]; [facility] Work Phone: Comment on above: Room air asx with pulse 08-05-2021 11:22-0400 Systolic blood pressure 118 mm[Hg] Mable Ford DO Work Phone: [facility]; [facility] Work Phone: Comment on above: Patient Position: Sitting asx with pulse 04-09-2021 09:11-0500 Body height 157.48 cm Lotus Cain MA [facility]; [facility] Work Phone: Comment on above: pt reported 04-09-2021 09:11-0500 Body mass index (BMI) [Ratio] 32.37 kg/m2 Lotus Cain MA [facility]; [facility] Work Phone: Comment on above: pt reported 04-09-2021 09:11-0500 Body surface area Derived from formula 1.81 m2 Lotus Cain MA [facility]; [facility] Work Phone: Comment on above: pt reported 04-09-2021 09:11-0500 Body weight 80.29 kg Lotus Cain MA [facility]; [facility] Work Phone: Comment on above: pt reported 01-08-2021 08:51-0500 Body height 157.48 cm Inez Sheldon LPN [facility]; [facility] Work Phone: 01-08-2021 08:51-0500 Body mass index (BMI) [Ratio] 32.37 kg/m2 Inez Sheldon LPN [facility]; [facility] Work Phone: 01-08-2021 08:51-0500 Body surface area Derived from formula 1.81 m2 Inez Sheldon LPN [facility]; [facility] Work Phone: 01-08-2021 08:51-0500 Body temperature 96.9 [degF] Inez Sheldon LPN [facility]; [facility] Work Phone: Comment on above: Method: Temporal 01-08-2021 08:51-0500 Body weight 80.29 kg Inez Sheldon YUKI [facility]; [facility] Work Phone: 01-08-2021 08:51-0500 Diastolic blood pressure 72 mm[Hg] Inez Sheldon LPN [facility]; [facility] Work Phone: Comment on above: Patient Position: Sitting; Cuff Location : Left Arm; Cuff Size: Standard 01-08-2021 08:51-0500 Heart rate 59 /min Inez Sheldon LPN [facility]; [facility] Work Phone: Comment on above: Pattern: Regular 01-08-2021 08:51-0500 Respiratory rate 16 /min Inez Sheldon LPN [facility]; [facility] Work Phone: Comment on above: Pattern: Unlabored 01-08-2021 08:51-0500 SaO2% (BldA) [Mass fraction] 96 % Inez Sheldon [employer] OFFICER [facility]; [facility] Work Phone: Comment on above: Room air 01-08-2021 08:51-0500 Systolic blood pressure 130 mm[Hg] Inez Sheldon [employer] OFFICER [facility]; [facility] Work Phone: Comment on above: Patient Position: Sitting; Cuff Location : Left Arm; Cuff Size: Standard 09-08-2020 11:090400 Body height 157.48 cm Viviana Strickland CMA [facility]; [facility] Work Phone: 09-08-2020 11:09-0400 Body mass index (BMI) [Ratio] 32.19 kg/m2 Viviana Strickland CMA [facility]; [facility] Work Phone: 09-08-2020 11:09040 Body surface area Derived from formula 1.81 m2 Viviana Strickland [employer]ESSIONAL [facility]; [facility] Work Phone: 09-08-2020 11:09040 Body temperature 97.3 [degF] Viviana Strickland CMA [facility]; [facility] Work Phone: Comment on above: Method: Infrared 09-08-2020 11:09040 Body weight 79.83 kg Viviana Strickland [facility]; [facility] Work Phone: 09-08-2020 11:090400 Diastolic blood pressure 76 mm[Hg] Viviana Strickland CMA [facility]; [facility] Work Phone: Comment on above: Patient Position: Sitting; Cuff Location : Left Arm; Cuff Size: Standard 09-08-2020 11:090400 Heart rate 54 /min iVviana Strickland [facility]; [facility] Work Phone: Comment on above: Pattern: Regular 09-08-2020 11:09-0400 Respiratory rate 18 /min Viviana Strickland [employer] PROFESSIONAL [facility]; [facility] Work Phone: Comment on above: Pattern: Unlabored 09-08-2020 11:09-0400 SaO2% (BldA) [Mass fraction] 95 % Viviana Strickland [facility]; [facility] Work Phone: Comment on above: Room air 09-08-2020 11:09-0400 Systolic blood pressure 116 mm[Hg] Viviana Strickland [facility]; [facility] Work Phone: Comment on above: Patient Position: Sitting; Cuff Location : Left Arm; Cuff Size: Standard 06-05-2020 07:37-0400 Body height 157.48 cm Inez Sheldon LPN [facility]; [facility] Work Phone: 06-05-2020 07:37-0400 Body mass index (BMI) [Ratio] 32.19 kg/m2 Inez Sheldon [employer] OFFICER [facility]; [facility] Work Phone: 06-05-2020 07:37-0400 Body surface area Derived from formula 1.81 m2 Inez Sheldon [employer] OFFICER [facility]; [facility] Work Phone: 06-05-2020 07:37-0400 Body temperature 97.1 [degF] Inez Sheldon LPN [facility]; [facility] Work Phone: Comment on above: Method: Infrared 06-05-2020 07:37-0400 Body weight 79.83 kg Inez Sheldon YUKI [facility]; [facility] Work Phone: 06-05-2020 07:37-0400 Diastolic blood pressure 68 mm[Hg] Inez Sheldon [employer] OFFICER [facility]; [facility] Work Phone: Comment on above: Patient Position: Sitting; Cuff Location : Left Arm; Cuff Size: Standard 06-05-2020 07:37-0400 Heart rate 95 /min Inez Sheldon [employer] OFFICER [facility]; [facility] Work Phone: Comment on above: Pattern: Regular 06-05-2020 07:37-0400 Respiratory rate 16 /min Inez Sheldon LPN [facility]; [facility] Work Phone: Comment on above: Pattern: Unlabored 06-05-2020 07:37-0400 SaO2% (BldA) [Mass fraction] 96 % Inez Sheldon [employer] OFFIC[employer] [facility]; [facility] Work Phone: Comment on above: Room air 06-05-2020 07:37-0400 Systolic blood pressure 122 mm[Hg] Inezteja Sheldon [employer] OFFICER [facility]; [facility] Work Phone: Comment on above: Patient Position: Sitting; Cuff Location : Left Arm; Cuff Size: Standard 05-29-2020 07:19-0400 Body height 157.48 cm [facility]; [facility] Work Phone: 05-29-2020 07:19-0400 Body mass index (BMI) [Ratio] 32.56 kg/m2 [facility]; [facility] Work Phone: 05-29-2020 07:19-0400 Body surface area Derived from formula 1.82 m2 [facility]; [facility] Work Phone: 05-29-2020 07:19-0400 Body weight 80.76 kg [facility]; [facility] Work Phone: 02-20-2020 09:41-0500 BMI (Body Mass Index) 32.56 kg/m2 [facility]; [facility] Work Phone: 02-20-2020 09:41-0500 Body weight 80.76 kg [facility]; [facility] Work Phone: 02-20-2020 09:41-0500 BSA (Body Surface Area) 1.82 m2 [facility]; [facility] Work Phone: 02-20-2020 09:41-0500 Height 157.48 cm [facility]; [facility] Work Phone: 12-06-2019 10:42-0400 BMI (Body Mass Index) 32.56 kg/m2 Inez Sheldon [facility] Internal Medicine Work Phone: 12-06-2019 10:42-0400 Body Temperature 98.2 [degF] Inez Sheldon [facility] Work Phone: Comment on above: Method: Temporal 12-06-2019 10:42-0400 Body weight 80.76 kg Inez Sheldon [facility] Work Phone: 12-06-2019 10:42-0400 BP Diastolic 80 mm[Hg] Inez Sheldon [facility] Work Phone: Comment on above: Patient Position: Sitting; Cuff Location : Left Arm; Cuff Size: Standard 12-06-2019 10:42-0400 BP Systolic 110 mm[Hg] Inez Sheldon [facility] Medicine Work Phone: Comment on above: Patient Position: Sitting; Cuff Location : Left Arm; Cuff Size: Standard 12-06-2019 10:42-0400 BSA (Body Surface Area) 1.82 m2 Inez Sheldon [facility] Medicine Work Phone: 12-06-2019 10:42-0400 Height 157.48 cm Inez Sheldon [facility] Medicine Work Phone: 12-06-2019 10:42-0400 Pulse (Heart Rate) 48 /min Inez Sheldon [facility] Work Phone: Comment on above: Pattern: Regular 12-06-2019 10:42-0400 Pulse Oximetry 95 % Mable Villafuerteon [facility] Internal Medicine Work Phone: Comment on above: Room air 12-06-2019 10:42-0400 Respiratory Rate 16 /min Inez Sheldon [facility] Internal Medicine Work Phone: Comment on above: Pattern: Unlabored 12-06-2019 10:42-0400 SaO2% (BldA) [Mass fraction] 95 % Inez Sheldon [facility] Internal Medicine; [facility] Medicine Work Phone: Comment on above: Room air 11-19-2019 11:00-0400 BMI (Body Mass Index) 32.56 kg/m2 Nohemi Whalen [facility] Internal Medicine Work Phone: 11-19-2019 11:00-0400 Body Temperature 97 [degF] Nohemi Whalen [facility] Internal Medicine Work Phone: Comment on above: Method: Thermal Scan 11-19-2019 11:00-0400 Body weight 80.76 kg Nohemi Whalen [facility] Internal Medicine Work Phone: 11-19-2019 11:00-0400 BP Diastolic 64 mm[Hg] Nohemi Whalen [employer] [facility] Work Phone: Comment on above: Patient Position: Sitting; Cuff Location : Left Arm; Cuff Size: Standard 11-19-2019 11:00-0400 BP Systolic 116 mm[Hg] Nohemi Whalen [employer] [facility] Work Phone: Comment on above: Patient Position: Sitting; Cuff Location : Left Arm; Cuff Size: Standard 11-19-2019 11:00-0400 BSA (Body Surface Area) 1.82 m2 Nohemi hWalen [facility] Work Phone: 11-19-2019 11:00-0400 Height 157.48 cm Nohemi Whalen [facility] Internal Medicine Work Phone: 11-19-2019 11:00-0400 Pulse (Heart Rate) 71 /min Nohemi Whalen LPN [facility] Work Phone: Comment on above: Pattern: Regular 11-19-2019 11:00-0400 Pulse Oximetry 96 % Mable Liliana [facility] Internal Medicine Work Phone: Comment on above: Room air 11-19-2019 11:00-0400 Respiratory Rate 16 /min Nohemi Whalen [employer] [facility] Work Phone: Comment on above: Pattern: Unlabored 11-19-2019 11:00-0400 SaO2% (BldA) [Mass fraction] 96 % Nohemi Whalen [facility]; [facility] Work Phone: Comment on above: Room air 08-16-2019 11:39-0400 BMI (Body Mass Index) 32.2 kg/m2 Inez Sheldon [facility] Work Phone: 08-16-2019 11:39-0400 Body Temperature 97.7 [degF] Inez Sheldon [employer] [facility] Work Phone: Comment on above: Method: Temporal 08-16-2019 11:39-0400 Body weight 79.85 kg Inez Sheldon [facility] Internal Medicine Work Phone: 08-16-2019 11:39-0400 BP Diastolic 72 mm[Hg] Inezteja Sheldon YUKI [facility] Internal Medicine Work Phone: Comment on above: Patient Position: Sitting; Cuff Location : Left Arm; Cuff Size: Standard 08-16-2019 11:39-0400 BP Systolic 112 mm[Hg] Inez Sheldon YUKI [facility] Internal Medicine Work Phone: Comment on above: Patient Position: Sitting; Cuff Location : Left Arm; Cuff Size: Standard 08-16-2019 11:39-0400 BSA (Body Surface Area) 1.81 m2 Inezteja Sheldon YUIK [facility] Internal Medicine Work Phone: 08-16-2019 11:39-0400 Height 157.48 cm Inez Sheldon LPN [facility] Internal Medicine Work Phone: 08-16-2019 11:39-0400 Pulse (Heart Rate) 51 /min Inez Monalisa L[facility] Work Phone: Comment on above: Pattern: Regular 08-16-2019 11:39-0400 Pulse Oximetry 96 % Mable Villafuerteon [facility] Internal Medicine Work Phone: Comment on above: Room air 08-16-2019 11:39-0400 Respiratory Rate 16 /min Inezteja Sheldon YUKI [facility] Internal Medicine Work Phone: Comment on above: Pattern: Unlabored 08-16-2019 11:39-0400 SaO2% (BldA) [Mass fraction] 96 % Inez Sheldon LPN [facility]; [facility] Work Phone: Comment on above: Room air 04-16-2019 11:09-0400 BMI (Body Mass Index) 32.01 kg/m2 Mel Le RN [facility] Work Phone: 04-16-2019 11:09-0400 Body Temperature 98.6 [degF] Mel Le RN [facility] Work Phone: Comment on above: Method: Temporal 04-16-2019 11:09-0400 Body weight 79.4 kg Mel Le RN [facility] Work Phone: 04-16-2019 11:09-0400 BP Diastolic 78 mm[Hg] Mel Le RN [facility] Work Phone: Comment on above: Patient Position: Sitting; Cuff Location : Left Arm; Cuff Size: Standard 04-16-2019 11:09-0400 BP Systolic 116 mm[Hg] Mel Le RN [facility] Work Phone: Comment on above: Patient Position: Sitting; Cuff Location : Left Arm; Cuff Size: Standard 04-16-2019 11:09-0400 BSA (Body Surface Area) 1.81 m2 Mel Le RN [facility] Work Phone: 04-16-2019 11:09-0400 Height 157.48 cm Mel Le RN [facility] Work Phone: 04-16-2019 11:09-0400 Pulse (Heart Rate) 60 /min Mel Le RN [facility] Work Phone: Comment on above: Pattern: Regular 04-16-2019 11:09-0400 Pulse Oximetry 97 % Mable Liliana [facility] Work Phone: Comment on above: Room air 04-16-2019 11:09-0400 Respiratory Rate 16 /min Mel Le RN [facility] Work Phone: Comment on above: Pattern: Unlabored 04-16-2019 11:09-0400 SaO2% (BldA) [Mass fraction] 97 % Mel Le RN [facility]; [facility] Work Phone: Comment on above: Room air 02-09-2019 10:39-0500 BMI (Body Mass Index) 32.01 kg/m2 Nathan Moses LPN [facility] Work Phone: 02-09-2019 10:39-0500 Body Temperature 97.7 [degF] Nathan Moses LPN [facility] Work Phone: Comment on above: Method: Temporal 02-09-2019 10:39-0500 Body weight 79.4 kg Nathan Moses LPN [facility] Work Phone: 02-09-2019 10:39-0500 BP Diastolic 78 mm[Hg] Nathan Moses LPN [facility] Work Phone: Comment on above: Patient Position: Sitting; Cuff Location : Left Arm; Cuff Size: Standard 02-09-2019 10:39-0500 BP Systolic 128 mm[Hg] Nathan Moses LPN [facility] Work Phone: Comment on above: Patient Position: Sitting; Cuff Location : Left Arm; Cuff Size: Standard 02-09-2019 10:39-0500 BSA (Body Surface Area) 1.81 m2 Nathan Moses LPN [facility] Work Phone: 02-09-2019 10:39-0500 Height 157.48 cm Nathan Moses LPN [facility] Work Phone: 02-09-2019 10:39-0500 Pulse (Heart Rate) 67 /min Nathan Moses LPN [facility] Work Phone: Comment on above: Pattern: Regular 02-09-2019 10:39-0500 Pulse Oximetry 94 % Mable Ford [facility] Work Phone: Comment on above: Room air 02-09-2019 10:39-0500 Respiratory Rate 18 /min Nathan Moses LPN [facility] Work Phone: Comment on above: Pattern: Unlabored 02-09-2019 10:39-0500 SaO2% (BldA) [Mass fraction] 94 % Nathan Moses LPN [facility]; [facility] Work Phone: Comment on above: Room air 08-16-2018 08:58-0400 BMI (Body Mass Index) 31.66 kg/m2 Viviana Strickland [facility] Work Phone: 08-16-2018 08:58-0400 Body Temperature 97.2 [degF] Viviana Strickland [facility] Work Phone: Comment on above: Method: Temporal 08-16-2018 08:58-0400 Body weight 78.53 kg Viviana Strickland [facility] Work Phone: 08-16-2018 08:58-0400 BP Diastolic 72 mm[Hg] Viviana Strickland CMA [facility] Work Phone: Comment on above: Patient Position: Sitting; Cuff Location : Left Arm; Cuff Size: Standard 08-16-2018 08:58-0400 BP Systolic 122 mm[Hg] Viviana Strickland CMA [facility] Work Phone: Comment on above: Patient Position: Sitting; Cuff Location : Left Arm; Cuff Size: Standard 08-16-2018 08:58-0400 BSA (Body Surface Area) 1.8 m2 Viviana Strickland CMA [facility] Work Phone: 08-16-2018 08:58-0400 Height 157.48 cm Viviana Strickland CMA [facility] Work Phone: 08-16-2018 08:58-0400 Pulse (Heart Rate) 48 /min Viviana Strickland CMA [facility] Work Phone: Comment on above: Pattern: Regular 08-16-2018 08:58-0400 Pulse Oximetry 95 % Mable Ford [facility] Work Phone: Comment on above: Room air 08-16-2018 08:58-0400 Respiratory Rate 18 /min Viviana Strickland CMA [facility] Work Phone: Comment on above: Pattern: Unlabored 08-16-2018 08:58-0400 SaO2% (BldA) [Mass fraction] 95 % Viviana Strickland [facility]; [facility] Work Phone: Comment on above: Room air 05-17-2018 09:02-0400 BMI (Body Mass Index) 31.3 kg/m2 Mable Villafuerteon DO Work Phone: [facility] Work Phone: 05-17-2018 09:02-0400 Body weight 77.62 kg Mable Villafuerteon DO Work Phone: [facility] Work Phone: 05-17-2018 09:02-0400 BP Diastolic 78 mm[Hg] Mable Villafuerteon DO Work Phone: [facility] Work Phone: Comment on above: Patient Position: Sitting; Cuff Location : Left Arm; Cuff Size: Large 05-17-2018 09:02-0400 BP Systolic 118 mm[Hg] Mable Ford DO Work Phone: [facility] Work Phone: Comment on above: Patient Position: Sitting; Cuff Location : Left Arm; Cuff Size: Large 05-17-2018 09:02-0400 BSA (Body Surface Area) 1.79 m2 Mable Ford DO Work Phone: [facility] Work Phone: 05-17-2018 09:02-0400 Height 157.48 cm Mable Villafuerteon DO Work Phone: [facility] Work Phone: 05-17-2018 09:02-0400 Pulse (Heart Rate) 46 /min Mable Ford DO Work Phone: [facility] Work Phone: Comment on above: Pattern: Regular 05-17-2018 09:02-0400 Pulse Oximetry 96 % Mable Ford [facility] Work Phone: Comment on above: Room air 05-17-2018 09:02-0400 Respiratory Rate 18 /min Mable Ford DO Work Phone: [facility] Work Phone: Comment on above: Pattern: Unlabored 05-17-2018 09:02-0400 SaO2% (BldA) [Mass fraction] 96 % Mable Ford DO Work Phone: [facility]; [facility] Work Phone: Comment on above: Room air 05-17-2018 09:02-0400 Weight 77.62 kg Mable Ford [facility] Work Phone: 12-21-2017 10:09-0500 BMI (Body Mass Index) 32.94 kg/m2 Munira Crespo RN [facility] Work Phone: 12-21-2017 10:09-0500 Body weight 81.7 kg Munira Crespo RN [facility] Work Phone: 12-21-2017 10:09-0500 BP Diastolic 76 mm[Hg] Munira Crespo RN [facility] Work Phone: Comment on above: Patient Position: Sitting; Cuff Location : Left Arm; Cuff Size: Large 12-21-2017 10:09-0500 BP Systolic 122 mm[Hg] Munira Crespo RN [facility] Work Phone: Comment on above: Patient Position: Sitting; Cuff Location : Left Arm; Cuff Size: Large 12-21-2017 10:09-0500 BSA (Body Surface Area) 1.83 m2 Munira Crespo RN [facility] Work Phone: 12-21-2017 10:09-0500 Height 157.48 cm Munira Crespo RN [facility] Work Phone: 12-21-2017 10:09-0500 Pulse (Heart Rate) 53 /min Munira Crespo RN [facility] Work Phone: Comment on above: Pattern: Regular 12-21-2017 10:09-0500 Pulse Oximetry 95 % Mable Ford [facility] Work Phone: Comment on above: Room air 12-21-2017 10:09-0500 Respiratory Rate 18 /min Munira Crespo RN [facility] Work Phone: Comment on above: Pattern: Unlabored 12-21-2017 10:09-0500 SaO2% (BldA) [Mass fraction] 95 % Munira Crespo RN [facility]; [facility] Work Phone: Comment on above: Room air 12-21-2017 10:09-0500 Weight 81.7 kg Mable Ford [facility] Work Phone: 08-18-2017 11:46-0400 BMI (Body Mass Index) 33.56 kg/m2 Munira Crespo RN [facility] Work Phone: 08-18-2017 11:46-0400 Body Temperature 97.3 [degF] Munira Crespo RN [facility] Work Phone: Comment on above: Method: Temporal 08-18-2017 11:46-0400 Body weight 83.24 kg Munira Crespo RN [facility] Work Phone: 08-18-2017 11:46-0400 BP Diastolic 84 mm[Hg] Munira Crespo RN [facility] Work Phone: Comment on above: Patient Position: Sitting; Cuff Location : Left Arm; Cuff Size: Small 08-18-2017 11:46-0400 BP Systolic 132 mm[Hg] Munira Crespo RN [facility] Work Phone: Comment on above: Patient Position: Sitting; Cuff Location : Left Arm; Cuff Size: Small 08-18-2017 11:46-0400 BSA (Body Surface Area) 1.84 m2 Munira Crespo RN [facility] Work Phone: 08-18-2017 11:46-0400 Height 157.48 cm Munira Crespo RN [facility] Work Phone: 08-18-2017 11:46-0400 Pulse (Heart Rate) 49 /min Munira Crespo RN [facility] Work Phone: Comment on above: Pattern: Regular 08-18-2017 11:46-0400 Pulse Oximetry 96 % Mable Ford [facility] Work Phone: Comment on above: Room air 08-18-2017 11:46-0400 Respiratory Rate 18 /min Munira Crespo RN [facility] Work Phone: Comment on above: Pattern: Unlabored 08-18-2017 11:46-0400 SaO2% (BldA) [Mass fraction] 96 % Munira Crespo RN [facility]; [facility] Work Phone: Comment on above: Room air 08-18-2017 11:46-0400 Weight 83.24 kg Mable Ford [facility] Work Phone: 04-21-2016 14:15-0400 BMI (Body Mass Index) 33.54 kg/m2 Munira Crespo RN [facility] Work Phone: 04-21-2016 14:15-0400 Body weight 83.18 kg Munira Crespo RN [facility] Work Phone: 04-21-2016 14:15-0400 BP Diastolic 62 mm[Hg] Munira Crespo RN [facility] Work Phone: Comment on above: Patient Position: Sitting; Cuff Location : Left Arm; Cuff Size: Large 04-21-2016 14:15-0400 BP Systolic 118 mm[Hg] Munira Crespo RN [facility] Work Phone: Comment on above: Patient Position: Sitting; Cuff Location : Left Arm; Cuff Size: Large 04-21-2016 14:15-0400 BSA (Body Surface Area) 1.84 m2 Munira Crespo RN [facility] Work Phone: 04-21-2016 14:15-0400 Height 157.48 cm Munira Crespo RN [facility] Work Phone: 04-21-2016 14:15-0400 Pulse (Heart Rate) 54 /min Munira Crespo RN [facility] Work Phone: Comment on above: Pattern: Regular 04-21-2016 14:15-0400 Pulse Oximetry 94 % Mable Ford [facility] Work Phone: Comment on above: Room air 04-21-2016 14:15-0400 Respiratory Rate 18 /min Munira Crespo RN [facility] Work Phone: Comment on above: Pattern: Unlabored 04-21-2016 14:15-0400 SaO2% (BldA) [Mass fraction] 94 % Munira Crespo RN [facility]; [facility] Work Phone: Comment on above: Room air 04-21-2016 14:15-0400 Weight 83.18 kg Mable Ford [facility] Work Phone: 02-16-2016 10:17-0500 BMI (Body Mass Index) 32.58 kg/m2 Elidia Hamlin [employer]URING [employer] ENGINEER Work Phone: [facility] Work Phone: 02-16-2016 10:17-0500 Body Temperature 97.5 [degF] Elidia Hamlin [employer]ING [employer] ENGINEER Work Phone: [facility] Work Phone: 02-16-2016 10:17-0500 Body weight 80.8 kg Elidia Hamlin CNP Work Phone: [facility] Work Phone: 02-16-2016 10:17-0500 BP Diastolic 78 mm[Hg] Elidia Hamlin CNP Work Phone: [facility] Work Phone: Comment on above: Patient Position: Supine; Cuff Location: Right Arm; Cuff Size: Standard 02-16-2016 10:17-0500 BP Systolic 114 mm[Hg] Elidia Hamlin CNP Work Phone: [facility] Work Phone: Comment on above: Patient Position: Supine; Cuff Location: Right Arm; Cuff Size: Standard 02-16-2016 10:17-0500 BSA (Body Surface Area) 1.82 m2 Elidia Hamlin CNP Work Phone: [facility] Work Phone: 02-16-2016 10:17-0500 Height 157.48 cm Elidia Hamlin CNP Work Phone: [facility] Work Phone: 02-16-2016 10:17-0500 Pulse Oximetry 56 % Mable Ford [facility] Work Phone: Comment on above: Room air 02-16-2016 10:17-0500 Respiratory Rate 16 /min Elidia Hamlin CNP Work Phone: [facility] Work Phone: 02-16-2016 10:17-0500 SaO2% (BldA) [Mass fraction] 56 % Elidia Hamlin CNP Work Phone: [facility]; [facility] Work Phone: Comment on above: Room air 02-16-2016 10:17-0500 Weight 80.8 kg Mable Ford [facility] Work Phone: 09-09-2015 13:07-0400 BMI (Body Mass Index) 31.82 kg/m2 Mel Le RN [facility] Work Phone: 09-09-2015 13:07-0400 Body Temperature 96.5 [degF] Mel Le RN [facility] Work Phone: Comment on above: Method: Temporal 09-09-2015 13:07-0400 Body weight 78.93 kg Mel Le RN [facility] Work Phone: 09-09-2015 13:07-0400 BP Diastolic 72 mm[Hg] Mel Le RN [facility] Work Phone: Comment on above: Patient Position: Sitting; Cuff Location : Left Arm; Cuff Size: Standard 09-09-2015 13:07-0400 BP Systolic 124 mm[Hg] Mel Le RN [facility] Work Phone: Comment on above: Patient Position: Sitting; Cuff Location : Left Arm; Cuff Size: Standard 09-09-2015 13:07-0400 BSA (Body Surface Area) 1.8 m2 Mel Le RN [facility] Work Phone: 09-09-2015 13:07-0400 Height 157.48 cm Mel Le RN [facility] Work Phone: 09-09-2015 13:07-0400 Pulse (Heart Rate) 61 /min Mel Le RN [facility] Work Phone: Comment on above: Pattern: Regular 09-09-2015 13:07-0400 Pulse Oximetry 96 % Mable Ford [facility] Work Phone: Comment on above: Room air 09-09-2015 13:07-0400 Respiratory Rate 16 /min Mel Le RN [facility] Work Phone: Comment on above: Pattern: Unlabored 09-09-2015 13:07-0400 SaO2% (BldA) [Mass fraction] 96 % Mel Le RN [facility]; [facility] Work Phone: Comment on above: Room air 09-09-2015 13:07-0400 Weight 78.93 kg Mable Ford [facility] Work Phone: 07-25-2015 12:29-0400 BMI (Body Mass Index) 31.64 kg/m2 BEBO Barry YUKI [facility] Work Phone: 07-25-2015 12:29-0400 Body Temperature 97.6 [degF] BEBO Barry YUKI [facility] Work Phone: Comment on above: Method: Temporal 07-25-2015 12:29-0400 Body weight 78.47 kg BEBO Barry YUKI [facility] Work Phone: 07-25-2015 12:29-0400 BP Diastolic 80 mm[Hg] BEBO Barry YUKI [facility] Work Phone: Comment on above: Patient Position: Sitting; Cuff Location : Left Arm; Cuff Size: Large 07-25-2015 12:29-0400 BP Systolic 130 mm[Hg] BEBO Barry YUKI [facility] Work Phone: Comment on above: Patient Position: Sitting; Cuff Location : Left Arm; Cuff Size: Large 07-25-2015 12:290400 BSA (Body Surface Area) 1.8 m2 BEBO Barry YUKI [facility] Work Phone: 07-25-2015 12:29-0400 Height 157.48 cm BEBO Barry YUKI [facility] Work Phone: 07-25-2015 12:29-0400 Pulse (Heart Rate) 76 /min BEBO Barry YUKI [facility] Work Phone: Comment on above: Pattern: Regular 07-25-2015 12:29-0400 Pulse Oximetry 97 % Mable Ford [facility] Work Phone: Comment on above: Room air 07-25-2015 12:29-0400 Respiratory Rate 20 /min BEBO Barry YUKI [facility] Work Phone: Comment on above: Pattern: Unlabored 07-25-2015 12:29-0400 SaO2% (BldA) [Mass fraction] 97 % BEBO Barry LPN [facility]; [facility] Work Phone: Comment on above: Room air 07-25-2015 12:29-0400 Weight 78.47 kg Mable Ford [facility] Work Phone: 02-03-2015 09:16-0500 BMI (Body Mass Index) 30.73 kg/m2 BEBO Barry LPN [facility] Work Phone: 02-03-2015 09:16-0500 Body Temperature 97.6 [degF] BEBO Barry YUKI [facility] Work Phone: Comment on above: Method: Temporal 02-03-2015 09:16-0500 Body weight 76.2 kg BEBO Barry YUKI [facility] Work Phone: 02-03-2015 09:16-0500 BP Diastolic 70 mm[Hg] BEBO Barry YUKI [facility] Work Phone: Comment on above: Patient Position: Sitting; Cuff Location : Left Arm; Cuff Size: Standard 02-03-2015 09:16-0500 BP Systolic 114 mm[Hg] BEBO Barry LPN [facility] Work Phone: Comment on above: Patient Position: Sitting; Cuff Location : Left Arm; Cuff Size: Standard 02-03-2015 09:16-0500 BSA (Body Surface Area) 1.78 m2 BEBO Barry YUKI [facility] Work Phone: 02-03-2015 09:16-0500 Height 157.48 cm BEBO Barry YUKI [facility] Work Phone: 02-03-2015 09:16-0500 Pulse (Heart Rate) 60 /min BEBO Barry LPN [facility] Work Phone: Comment on above: Pattern: Regular 02-03-2015 09:16-0500 Pulse Oximetry 97 % Mable Ford [facility] Work Phone: Comment on above: Room air 02-03-2015 09:16-0500 Respiratory Rate 18 /min BEBO Barry YUKI [facility] Work Phone: Comment on above: Pattern: Unlabored 02-03-2015 09:16-0500 SaO2% (BldA) [Mass fraction] 97 % BEBO Barry LPN [facility]; [facility] Work Phone: Comment on above: Room air 02-03-2015 09:16-0500 Weight 76.2 kg Mable Ford [facility] Work Phone: 01-09-2015 12:26-0500 BMI (Body Mass Index) 30.77 kg/m2 Munira Crespo RN [facility] Work Phone: 01-09-2015 12:26-0500 Body weight 76.32 kg Munira Crespo RN [facility] Work Phone: 01-09-2015 12:26-0500 BP Diastolic 78 mm[Hg] Munira Crespo RN [facility] Work Phone: Comment on above: Patient Position: Sitting; Cuff Location : Left Arm; Cuff Size: Large 01-09-2015 12:26-0500 BP Systolic 122 mm[Hg] Munira Crespo RN [facility] Work Phone: Comment on above: Patient Position: Sitting; Cuff Location : Left Arm; Cuff Size: Large 01-09-2015 12:26-0500 BSA (Body Surface Area) 1.78 m2 Munira Crespo RN [facility] Work Phone: 01-09-2015 12:26-0500 Height 157.48 cm Munira Crespo RN [facility] Work Phone: 01-09-2015 12:26-0500 Pulse (Heart Rate) 56 /min Munira Crespo RN [facility] Work Phone: Comment on above: Pattern: Regular 01-09-2015 12:26-0500 Pulse Oximetry 98 % Mable Ford [facility] Work Phone: Comment on above: Room air 01-09-2015 12:26-0500 Respiratory Rate 18 /min Munira Crespo RN [facility] Work Phone: Comment on above: Pattern: Unlabored 01-09-2015 12:26-0500 SaO2% (BldA) [Mass fraction] 98 % Munira Crespo RN [facility]; [facility] Work Phone: Comment on above: Room air 01-09-2015 12:26-0500 Weight 76.32 kg Mable Ford [facility] Work Phone: 08-27-2014 08:26-0400 BMI (Body Mass Index) 30.54 kg/m2 Diana Prater MD Work Phone: [facility] Work Phone: 08-27-2014 08:26-0400 Body Temperature 97.3 [degF] Diana Prater MD Work Phone: [facility] Work Phone: Comment on above: Method: Temporal 08-27-2014 08:26-0400 Body weight 75.75 kg Diana Prater MD Work Phone: [facility] Work Phone: 08-27-2014 08:26-0400 BP Diastolic 72 mm[Hg] Diana Prater MD Work Phone: [facility] Work Phone: Comment on above: Patient Position: Sitting; Cuff Location : Left Arm; Cuff Size: Standard 08-27-2014 08:26-0400 BP Systolic 120 mm[Hg] Diana Prater MD Work Phone: [facility] Work Phone: Comment on above: Patient Position: Sitting; Cuff Location : Left Arm; Cuff Size: Standard 08-27-2014 08:26-0400 BSA (Body Surface Area) 1.77 m2 Diana Prater MD Work Phone: [facility] Work Phone: 08-27-2014 08:26-0400 Height 157.48 cm Diana Prater MD Work Phone: [facility] Work Phone: 08-27-2014 08:26-0400 Pulse (Heart Rate) 76 /min Diana Prater MD Work Phone: [facility] Work Phone: Comment on above: Pattern: Regular 08-27-2014 08:26-0400 Pulse Oximetry 96 % Mable Ford [facility] Work Phone: Comment on above: Room air 08-27-2014 08:26-0400 Respiratory Rate 16 /min Diana Prater MD Work Phone: [facility] Work Phone: Comment on above: Pattern: Unlabored 08-27-2014 08:26-0400 SaO2% (BldA) [Mass fraction] 96 % Diana Prater MD Work Phone: [facility]; [facility] Work Phone: Comment on above: Room air 08-27-2014 08:26-0400 Weight 75.75 kg Mable Villafuerteon [facility] Work Phone: 07-30-2014 09:48-0400 BMI (Body Mass Index) 30.73 kg/m2 Mel Le RN [facility] Work Phone: 07-30-2014 09:48-0400 Body Temperature 98.1 [degF] Mel Le RN [facility] Work Phone: Comment on above: Method: Temporal 07-30-2014 09:48-0400 Body weight 76.2 kg Mel Le RN [facility] Work Phone: 07-30-2014 09:48-0400 BP Diastolic 74 mm[Hg] Mel Le RN [facility] Work Phone: Comment on above: Patient Position: Sitting; Cuff Location : Left Arm; Cuff Size: Standard 07-30-2014 09:48-0400 BP Systolic 122 mm[Hg] Mel Le RN [facility] Work Phone: Comment on above: Patient Position: Sitting; Cuff Location : Left Arm; Cuff Size: Standard 07-30-2014 09:48-0400 BSA (Body Surface Area) 1.78 m2 Mel Le RN [facility] Work Phone: 07-30-2014 09:48-0400 Height 157.48 cm Mel Le RN [facility] Work Phone: 07-30-2014 09:48-0400 Pulse (Heart Rate) 63 /min Mel Le RN [facility] Work Phone: Comment on above: Pattern: Regular 07-30-2014 09:48-0400 Pulse Oximetry 95 % Mable Villafuerteon [facility] Work Phone: Comment on above: Room air 07-30-2014 09:48-0400 Respiratory Rate 17 /min Mel Le RN [facility] Work Phone: Comment on above: Pattern: Unlabored 07-30-2014 09:48-0400 SaO2% (BldA) [Mass fraction] 95 % Mel Le RN [facility]; [facility] Work Phone: Comment on above: Room air 07-30-2014 09:48-0400 Weight 76.2 kg Mable Villafuerteon [facility] Work Phone: 01-14-2014 11:24-0500 BMI (Body Mass Index) 29.26 kg/m2 Guillermina Mendez [facility] Work Phone: 01-14-2014 11:24-0500 Body Temperature 96.8 [degF] Guillermina Mendez [facility] Work Phone: Comment on above: Method: Tympanic 01-14-2014 11:24-0500 Body weight 72.58 kg Guillermina Mendez [facility] Work Phone: 01-14-2014 11:24-0500 BP Diastolic 68 mm[Hg] Guillermina Mendez [facility] Work Phone: Comment on above: Patient Position: Sitting; Cuff Location : Left Arm; Cuff Size: Standard 01-14-2014 11:24-0500 BP Systolic 116 mm[Hg] Guillermina Mendez [facility] Work Phone: Comment on above: Patient Position: Sitting; Cuff Location : Left Arm; Cuff Size: Standard 01-14-2014 11:24-0500 BSA (Body Surface Area) 1.74 m2 Guillermina Mendez [facility] Work Phone: 01-14-2014 11:24-0500 Height 157.48 cm Guillermina Mendez [facility] Work Phone: 01-14-2014 11:24-0500 Pulse (Heart Rate) 48 /min Guillermina Mendez [facility] Work Phone: Comment on above: Pattern: Regular 01-14-2014 11:24-0500 Pulse Oximetry 98 % Mable Ford [facility] Work Phone: Comment on above: Room air 01-14-2014 11:24-0500 Respiratory Rate 18 /min Guillermina Mendez [facility] Work Phone: Comment on above: Pattern: Unlabored 01-14-2014 11:24-0500 SaO2% (BldA) [Mass fraction] 98 % Guillermina Mendez [facility]; [facility] Work Phone: Comment on above: Room air 01-14-2014 11:24-0500 Weight 72.58 kg Mable Ford [facility] Work Phone: 06-19-2013 10:10-0400 BMI (Body Mass Index) 29.45 kg/m2 BEBO Barry LPN [facility] Work Phone: 06-19-2013 10:10-0400 Body Temperature 99.1 [degF] BEBO Barry LPN [facility] Work Phone: Comment on above: Method: Oral 06-19-2013 10:10-0400 Body weight 73.03 kg BEBO Barry LPN [facility] Work Phone: 06-19-2013 10:10-0400 BP Diastolic 74 mm[Hg] BEBO Barry LPN [facility] Work Phone: Comment on above: Patient Position: Sitting; Cuff Location : Left Arm; Cuff Size: Standard 06-19-2013 10:10-0400 BP Systolic 114 mm[Hg] BEBO Barry LPN [facility] Work Phone: Comment on above: Patient Position: Sitting; Cuff Location : Left Arm; Cuff Size: Standard 06-19-2013 10:10-0400 BSA (Body Surface Area) 1.74 m2 BEBO Barry LPN [facility] Work Phone: 06-19-2013 10:10-0400 Height 157.48 cm BEBO Jhonny MIRZA [facility] Work Phone: 06-19-2013 10:10-0400 Pulse (Heart Rate) 62 /min BEBO Jhonny MIRZA [facility] Work Phone: Comment on above: Pattern: Regular 06-19-2013 10:10-0400 Respiratory Rate 18 /min BEBO Jhonny MIRZA [facility] Work Phone: Comment on above: Pattern: Unlabored 06-19-2013 10:10-0400 Weight 73.03 kg Mable Ford [facility] Work Phone: 12-19-2012 14:46-0500 BMI (Body Mass Index) 28.9 kg/m2 Mel Le RN [facility] Work Phone: 12-19-2012 14:46-0500 Body Temperature 96.8 [degF] Mel Le RN [facility] Work Phone: Comment on above: Method: Temporal 12-19-2012 14:46-0500 Body weight 71.67 kg Mel Le RN [facility] Work Phone: 12-19-2012 14:46-0500 BP Diastolic 74 mm[Hg] Mel Le RN [facility] Work Phone: Comment on above: Patient Position: Sitting; Cuff Location : Left Arm; Cuff Size: Standard 12-19-2012 14:46-0500 BP Systolic 120 mm[Hg] Mel Le RN [facility] Work Phone: Comment on above: Patient Position: Sitting; Cuff Location : Left Arm; Cuff Size: Standard 12-19-2012 14:46-0500 BSA (Body Surface Area) 1.73 m2 Mel Le RN [facility] Work Phone: 12-19-2012 14:46-0500 Height 157.48 cm Mel Le RN [facility] Work Phone: 12-19-2012 14:46-0500 Pulse (Heart Rate) 52 /min Mel Le RN [facility] Work Phone: Comment on above: Pattern: Regular 12-19-2012 14:46-0500 Pulse Oximetry 98 % Mable Ford [facility] Work Phone: Comment on above: Room air 12-19-2012 14:46-0500 Respiratory Rate 16 /min Mel Le RN [facility] Work Phone: Comment on above: Pattern: Unlabored 12-19-2012 14:46-0500 SaO2% (BldA) [Mass fraction] 98 % Mel Le RN [facility]; [facility] Work Phone: Comment on above: Room air 12-19-2012 14:46-0500 Weight 71.67 kg Mable Ford [facility] Work Phone: 02-11-2012 09:58-0500 BMI (Body Mass Index) 28.35 kg/m2 BEBO Barry LPN [facility] Work Phone: 02-11-2012 09:58-0500 Body Temperature 98.2 [degF] BEBO Barry LPN [facility] Work Phone: Comment on above: Method: Oral 02-11-2012 09:58-0500 Body weight 70.31 kg BEBO Barry LPN [facility] Work Phone: 02-11-2012 09:58-0500 BP Diastolic 74 mm[Hg] BEBO Barry LPN [facility] Work Phone: Comment on above: Patient Position: Sitting; Cuff Location : Left Arm; Cuff Size: Standard 02-11-2012 09:58-0500 BP Systolic 114 mm[Hg] BEBO Barry LPN [facility] Work Phone: Comment on above: Patient Position: Sitting; Cuff Location : Left Arm; Cuff Size: Standard 02-11-2012 09:58-0500 BSA (Body Surface Area) 1.72 m2 BEBO Barry LPN [facility] Work Phone: 02-11-2012 09:58-0500 Height 157.48 cm BEBO Barry LPN [facility] Work Phone: 02-11-2012 09:58-0500 Pulse (Heart Rate) 70 /min BEBO Barry LPN [facility] Work Phone: Comment on above: Pattern: Regular 02-11-2012 09:58-0500 Respiratory Rate 18 /min BEBO Barry LPN [facility] Work Phone: Comment on above: Pattern: Unlabored 02-11-2012 09:58-0500 Weight 70.31 kg Mable Ford [facility] Work Phone: 08-17-2011 15:02-0400 BMI (Body Mass Index) 28.17 kg/m2 BEBO Barry LPN [facility] Work Phone: 08-17-2011 15:02-0400 Body Temperature 98 [degF] BEBO Barry LPN [facility] Work Phone: Comment on above: Method: Oral 08-17-2011 15:02-0400 Body weight 69.85 kg BEBO Barry LPN [facility] Work Phone: 08-17-2011 15:02-0400 BP Diastolic 70 mm[Hg] BEBO Barry LPN [facility] Work Phone: Comment on above: Patient Position: Sitting; Cuff Location : Left Arm; Cuff Size: Standard 08-17-2011 15:02-0400 BP Systolic 108 mm[Hg] BEBO Barry LPN [facility] Work Phone: Comment on above: Patient Position: Sitting; Cuff Location : Left Arm; Cuff Size: Standard 08-17-2011 15:02-0400 BSA (Body Surface Area) 1.71 m2 BEBO Barry LPN [facility] Work Phone: 08-17-2011 15:02-0400 Height 157.48 cm BEBO Barry LPN [facility] Work Phone: 08-17-2011 15:02-0400 Pulse (Heart Rate) 64 /min BEBO Barry YUKI [facility] Work Phone: Comment on above: Pattern: Regular 08-17-2011 15:02-0400 Respiratory Rate 18 /min BEBO Barry YUKI [facility] Work Phone: Comment on above: Pattern: Unlabored 08-17-2011 15:02-0400 Weight 69.85 kg Mable Ford [facility] Work Phone: 07-09-2011 09:52-0400 BMI (Body Mass Index) 27.98 kg/m2 Audrey Crooks RN [facility] Work Phone: 07-09-2011 09:52-0400 Body Temperature 98.1 [degF] Audrey Crooks RN [facility] Work Phone: Comment on above: Method: Oral 07-09-2011 09:52-0400 Body weight 69.4 kg Audrey Crooks RN [facility] Work Phone: 07-09-2011 09:52-0400 BP Diastolic 72 mm[Hg] Audrey Crooks RN [facility] Work Phone: Comment on above: Patient Position: Sitting; Cuff Location : Left Arm; Cuff Size: Large 07-09-2011 09:52-0400 BP Systolic 130 mm[Hg] Audrey Crooks RN [facility] Work Phone: Comment on above: Patient Position: Sitting; Cuff Location : Left Arm; Cuff Size: Large 07-09-2011 09:52-0400 BSA (Body Surface Area) 1.71 m2 Audrey Crooks RN [facility] Work Phone: 07-09-2011 09:52-0400 Height 157.48 cm Audrey Crooks RN [facility] Work Phone: 07-09-2011 09:52-0400 Pulse (Heart Rate) 60 /min Audrey Crooks RN [facility] Work Phone: Comment on above: Pattern: Regular 07-09-2011 09:52-0400 Respiratory Rate 16 /min Audrey Mast RN [facility] Work Phone: Comment on above: Pattern: Unlabored 07-09-2011 09:52-0400 Weight 69.4 kg Mable Ford [facility] Work Phone: Encounters Encounter Date Encounter Type Care Provider Facility Start: 10-11-2024 End: 10-11-2024 Patient encounter procedure Munira Jogrensen NP-[place] [facility] Work Phone: Start: 10-11-2024 End: 10-11-[address] Mable Ford DO Work Phone: -[facility] Start: 08-07-2024 Non-patient / Non-visit Dr. Melecio Rockwell MD -[facility] Work Phone: Start: 01-24-2024 End: 01-24-2024 ambulatory Mable Ford Facility:[facility] Start: 10-31-2023 ambulatory Mable Ford Facilit y:[facility] Start: 10-31-2023 End: 10-31-2023 ambulatory Mable Ford Facility:[facility] Start: 12-08-2022 End: 12-08-2022 Mable Liliana DO Work Phone: [facility] Start: 12-03-2022 End: 12-03-2022 Office outpatient visit 25 minutes Mable Liliana DO Work Phone: [facility] Start: 12-03-2022 Mable Fearo n DO Work Phone: [facility] Start: 08-02-2022 End: 08-02-2022 Patient encounter procedure Marvin Reese YUKI [facility]; [facility] Work Phone: Start: 08-02-2022 Mable Fearo n DO Work Phone: [facility] Start: 03-15-2022 ambulatory Mable Liliana DO [facility] Start: 03-15-2022 End: 03-15-2022 Office outpatient visit 25 minutes Mable Liliana DO Work Phone: [facility] Start: 02-10-2022 End: 02-10-[address] Chelo De Work Phone: [facility] Work Phone: Start: 02-10-2022 End: 02-10-[address] Chelo De Work Phone: [facility]-Ultrasound, [facility] Start: 01-25-2022 Mablenaima Villafuerteo n DO Work Phone: [facility] Start: 01-25-2022 End: 01-25-2022 Office outpatient visit 15 minutes Mable Liliana DO Work Phone: [facility] Start: 01-19-2022 End: 01-19-[address] Chelo De Work Phone: [facility] Work Phone: Start: 01-19-2022 End: 01-19-[address] Chelo De Work Phone: [facility]-Outpatient Bone Densitometry Start: 01-11-2022 End: 01-11-2022 Mable Liliana DO Work Phone: [facility] Start: 01-07-2022 Mable Fearo n DO Work Phone: [facility] Start: 01-07-2022 End: 01-07-2022 Office outpatient visit 15 minutes Mable Liliana DO Work Phone: [facility] Start: 12-23-2021 Non-patient / Non-visit Dr. Teja De Work Phone: [facility] Start: 12-22-2021 Non-patient / Non-visit Dr. Teja De Work Phone: [facility] Start: 12-21-2021 End: 12-23-2021 Evaluation and management of inpatient Dr. Garrett De La Fuente Work Phone: [facility]-Medical Surgical 3 Start: 12-16-2021 End: 12-29-2021 Office outpatient visit 5 minutes Mable Liliana DO Work Phone: [facility] Start: 12-16-2021 Review Mable Fearo n DO Work Phone: [facility] Start: 12-03-2021 End: 12-03-2021 Office outpatient visit 10 minutes Mable Liliana DO Work Phone: [facility] Start: 11-06-2021 End: 11-06-[address] Tucker Franca Work Phone: [facility] Start: 11-06-2021 End: 11-06-2021 Office outpatient visit 25 minutes Mable Liliana DO Work Phone: [facility] Start: 08-05-2021 End: 08-05-2021 Patient encounter procedure Mable Liliana DO Work Phone: [facility] Start: 08-05-2021 End: 08-05-2021 Periodic preventive med est patient 65yrs& older Mable Liliana DO Work Phone: [facility] Start: 04-10-2021 End: 04-13-2021 Office outpatient visit 5 minutes Mable Liliana DO Work Phone: [facility] Start: 04-09-2021 End: 04-10-2021 Office outpatient visit 25 minutes Mable Liliana DO Work Phone: [facility] Start: 01-08-2021 End: 01-08-2021 Office outpatient visit 25 minutes Mable Liliana DO Work Phone: [facility] Start: 09-12-2020 End: 09-12-2020 Phone Encounter Mable Liliana DO Work Phone: [facility] Start: 09-12-2020 End: 09-12-2020 Mable Liliana DO Work Phone: [facility] Start: 09-08-2020 End: 09-08-2020 Office outpatient visit 15 minutes Mable Liliana DO Work Phone: [facility] Start: 06-05-2020 End: 06-06-2020 Office outpatient visit 25 minutes Mable Ford DO Work Phone: [facility] Start: 06-05-2020 Review Mable Villafuerteo n DO Work Phone: [facility] Start: 05-29-2020 Review Mable Villafuerteo n DO Work Phone: [facility] Start: 02-20-2020 End: 02-20-2020 Office outpatient visit 25 minutes Mable Liliana [facility] Start: 02-20-2020 Review Mable Ford [facility] Start: 12-06-2019 End: 12-06-2019 Patient encounter procedure Mable Ford DO Work Phone: [facility] Start: 12-06-2019 End: 12-06-2019 Periodic preventive med est patient 65yrs& older Mable Ford [facility] Start: 11-19-2019 End: 11-19-2019 Office outpatient visit 15 minutes Mable Ford [facility] Start: 08-16-2019 End: 08-16-2019 Office outpatient visit 25 minutes Mable Ford [facility] Start: 04-18-2019 End: 04-18-2019 Lab Order Mable Ford [facility] Start: 04-18-2019 End: 04-18-2019 Mable Ford DO Work Phone: [facility] Start: 04-16-2019 End: 04-16-2019 Office outpatient visit 25 minutes Mable Ford [facility] Start: 02-09-2019 End: 02-09-2019 Office outpatient visit 15 minutes Mable Ford [facility] Start: 08-16-2018 End: 08-16-2018 Office outpatient visit 25 minutes Mable Ford [facility] Start: 08-16-2018 Review Mable Ford [facility] Start: 05-17-2018 End: 05-17-2018 Office outpatient visit 25 minutes Mable Ford [facility] Start: 12-21-2017 End: 12-21-2017 Office outpatient visit 25 minutes Mable Ford [facility] Start: 08-18-2017 End: 08-18-2017 Office outpatient visit 25 minutes Mable Liliana [facility] Start: 04-21-2016 End: 04-21-2016 Office outpatient visit 40 minutes Mable Liliana [facility] Start: 02-16-2016 End: 02-16-2016 Lab Order Mable Ford [facility] Start: 02-16-2016 End: 02-16-2016 Mable Ford DO Work Phone: [facility] Start: 02-16-2016 End: 02-16-2016 Office outpatient visit 10 minutes Mable Liliana [facility] Start: 09-09-2015 End: 09-09-2015 Patient encounter Mable Liliana [facility] Start: 09-09-2015 End: 09-09-2015 Mable Ford DO Work Phone: [facility] Start: 07-25-2015 End: 07-25-2015 Periodic preventive med est patient 18-39 yrs Mable Liliana [facility] Start: 06-27-2015 End: 06-27-2015 Refill Request Mablenaima Villafuerteon [facility] Start: 06-27-2015 End: 06-27-2015 Mable Ford DO Work Phone: [facility] Start: 06-20-2015 End: 06-20-2015 Phone Encounter Mable Ford [facility] Start: 06-20-2015 End: 06-20-2015 Mable Ford DO Work Phone: [facility] Start: 06-19-2015 End: 06-23-2015 Periodic preventive med est patient 18-39 yrs Mable Villafuerteon [facility] Start: 02-03-2015 End: 02-03-2015 Office outpatient visit 10 minutes Mable Liliana [facility] Start: 01-09-2015 End: 01-09-2015 Office outpatient visit 15 minutes Mable Liliana [facility] Start: 08-29-2014 End: 08-29-2014 Phone Encounter Mable Liliana [facility] Start: 08-29-2014 End: 08-29-2014 Mablenaima Ford DO Work Phone: [facility] Start: 08-27-2014 End: 08-27-2014 Office outpatient visit 25 minutes Mable Ford [facility] Start: 07-30-2014 End: 07-30-2014 Office outpatient visit 10 minutes Mable Ford [facility] Start: 07-25-2014 End: 07-25-2014 Phone Encounter Mable Ford [facility] Start: 07-25-2014 End: 07-25-2014 Mable Fodr DO Work Phone: [facility] Start: 01-14-2014 End: 01-15-2014 Office outpatient visit 25 minutes Mable Ford [facility] Start: 11-26-2013 End: 11-26-2013 Phone Encounter Mable Ford [facility] Start: 11-26-2013 End: 11-26-2013 Mable Ford DO Work Phone: [facility] Start: 07-25-2013 End: 07-25-2013 Phone Encounter Mable Ford [facility] Start: 07-25-2013 End: 07-25-2013 Mable Ford DO Work Phone: [facility] Start: 07-23-2013 End: 07-23-2013 Phone Encounter Mable Ford [facility] Start: 07-23-2013 End: 07-23-2013 Mable Ford DO Work Phone: [facility] Start: 06-19-2013 End: 06-19-2013 Patient encounter Mable Ford [facility] Start: 06-19-2013 End: 06-19-2013 Mable Ford DO Work Phone: [facility] Start: 12-19-2012 End: 12-19-2012 Patient encounter Mable Ford [facility] Start: 12-19-2012 End: 12-19-2012 Mable Ford DO Work Phone: [facility] Start: 02-11-2012 End: 02-11-2012 Prescription Refill Mable Ford [facility] Start: 02-11-2012 End: 02-11-2012 Mable Ford DO Work Phone: [facility] Start: 02-11-2012 End: 02-11-2012 Prescription Refill Mable Ford [facility] Start: 02-11-2012 End: 02-11-2012 Mable Ford DO Work Phone: [facility] Start: 02-11-2012 End: 02-11-2012 Patient encounter Mable Ford [facility] Start: 02-11-2012 End: 02-11-2012 Mable Ford DO Work Phone: [facility] Start: 08-25-2011 End: 08-25-2011 Annotation/Addendum Mable Ford [facility] Start: 08-25-2011 End: 08-25-2011 Mable Ford DO Work Phone: [facility] Start: 08-17-2011 End: 08-17-2011 Patient encounter Mable Ford [facility] Start: 08-17-2011 End: 08-17-2011 Mable Ford DO Work Phone: [facility] Start: 07-09-2011 End: 07-09-2011 Annotation/Addendum Mable Ford [facility] Start: 07-09-2011 End: 07-09-2011 Mable Ford DO Work Phone: [facility] Start: 07-09-2011 End: 07-09-2011 Office outpatient new 30 minutes Mable Liliana [facility] Patient encounter procedure Nohemi Whalen [facility]; [facility] Work Phone: Patient encounter procedure Nohemi Whalen [facility]; [facility] Work Phone: Patient encounter procedure Inez Sheldon [facility]; [facility] Work Phone: Patient encounter procedure Lotus Cain MA [facility]; [facility] Work Phone: Patient encounter procedure Kandi Calhoun CMA [facility]; [facility] Work Phone: Patient encounter procedure Mable Liliana DO Work Phone: [facility]; [facility] Work Phone: Patient encounter procedure Nathan Moses [facility]; [facility] Work Phone: Patient encounter procedure Kandi Calhoun [facility]; [facility] Work Phone: Patient encounter procedure Kait Archuleta [facility]; [facility] Work Phone: Patient encounter procedure Kandi Calhoun [facility]; [facility] Work Phone: Patient encounter procedure Kandi Calhoun [facility]; [facility] Work Phone: End: 12-03-2022 Patient encounter procedure BEBO Barry [facility]; [facility] Work Phone: Procedures Date Procedure Procedure Detail Performing Clinician Start: 02-10-[address] Chelo De Work Phone: Start: 02-10-2022 End: 02-10-2022 Procedure Note: See Note; NOTES: [facility] Imaging Services [address] [place] [address] Kidney and Bladder MR#: [id number] Acct: [id number] Name: MARLIN JARRELL Rep #: [id number] : 1955 F 66 From: Gianna craig MD PCP: Dr. Mable Ford, Status: REG CLI Study: Kidney and Bladder Date of Exam: 02/10/22 Exam# [id number] Ordering Dr: Ama Rockwell MD HISTORY: UTI. TECHNIQUE: Trotter scale and color doppler images were obtained of the kidneys. 55 images. COMPARISON: None. FINDINGS: RIGHT KIDNEY: 9.3 cm in length with a cortical thickness of 9 mm. Contour and echogenicity unremarkable. No hydronephrosis. No gross renal mass demonstrated. LEFT KIDNEY: 10.2 cm in length with a cortical thickness of 12 mm. Contour and echogenicity unremarkable. No hydronephrosis. No gross renal mass demonstrated. URINARY BLADDER: Unremarkable with a wall thickness of 4 mm. Bilateral ureteral jets visualized. US/Kidney and Bladder IMPRESSION: Unremarkable examination of the kidneys. Electronically Signed: Gianna Berry MD at 14:13 EST Reading Location ID and State: [facility] / [place] Tel , Service support , CC: Dr. Ama Rockwell MD; Dr. Mable Ford DO Supervisor Taping: Signed Mable Ford DO Work Phone: Start: 01-19-2022 Dual energy X-ray absorptiometry Dr. Chelo De Work Phone: Start: 01-19-2022 End: 01-20-2022 Procedure Note: See Note; NOTES: [facility] Imaging Services [address] [place] [address] Dexa Bone Density Study MR#: [id number] Acct: [id number] Name: MARLIN JARRELL Rep #: [id number] : 1955 F 66 From: Leoncio adams MD PCP: Dr. Mable Ford DO Status: DEP CLI Study: Dexa Bone Density Study Date of Exam: 01/19/22 Exam# [id number] Ordering Dr: Mable Ford DO STUDY: DUAL ENERGY X-RAY ABSORPTIOMETRY / DXA REASON FOR EXAM: Female, 66 years old. [id number] TECHNIQUE: Bone Mineral Density (BMD) measurements of lumbar spine and bilateral hips were obtained. COMPARISON: None. FINDINGS: Lumbar Spine (L1-L4): g/cm2 (1.005) / T-score (-0.7) / Z-score (1.4) Findings are suggestive of normal bone density with a low fracture risk. Left Femur Total: g/cm2 (0.850) / T-score (-0.8) / Z-score (0.7) Left Femoral Neck: g/cm2 (0.719) / T-score (-1.2) / Z-score (0.5) Right Femur Total: g/cm2 (0.828) / T-score (-0.9) / Z-score (0.5) Right Femoral Neck: g/cm2 (0.724) / T-score (-1.1) / Z-score (0.6) BD/Dexa Bone Density Study IMPRESSION: The patient is considered osteopenic as outlined below according to World David Organization (WHO) criteria with a low fracture risk. Reference Information: The T-score is the number of standard deviations above or below the standard which is normal for young adults at their peak bone mineral density. The World Health Organization (WHO) interprets the T-scores as follows: Above -1 Normal bone density Between -1 and -2.5 Osteopenia Equal to / or below -2.5 Osteoporosis As a practical clinical guideline, osteopenia may be graded as follows: Mild -1 through -1.5 Moderate -1.6 through -2.0 Severe -2.1 through -2.4 The Z-score is the number of standard deviations above or below age-matched controls. A Z-score of less than -1.5 would be considered abnormal. References: 1. NIH Osteoporosis and Related Bone Diseases www osteo.org 2. International Society for Clinical Densitometry www iscd.org 3. National Osteoporosis Foundation www nof.org Electronically Signed: Leoncio Gorman MD at 14:14 EST Reading Location ID and State: [facility] / [place] , Service support , CC: Dr. Mable Ford DO Supervisor Taping: Signed Mable Ford DO Work Phone: Start: 01-19-[address] Chelo De Work Phone: Start: 01-19-2022 End: 01-19-2022 Procedure Note: See Note; NOTES: [facility] Imaging Services [address] [place] [address] SCRN MAMM (CAD)W/BRADEN BILAT MR#: [id number] Acct: [id number] Name: MARLIN JARRELL Rep #: [id number] : 1955 F 66 From: Leoncio adams MD PCP: Dr. Mable Ford DO Status: REG CLI Study: SCRN MAMM (CAD)W/BRADEN BILAT Date of Exam: 01/07 04/28 Exam# [id number] Ordering Dr: Mable Ford DO MAMMOGRAPHY - BILATERAL SCREENING REASON FOR EXAM: Female, 66 years old. Routine annual screening examination. PERTINENT HISTORY: Non-contributory. TECHNIQUE: Digital bilateral breast braden (3D mammographic acquisition) in the CC and MLO projections. 2-D mediolateral oblique (MLO) and craniocaudad (CC) views of both breasts were obtained. CAD: Full Field Digital Mammography with Computer Added Detection was performed. COMPARISON: Comparison is made with prior study dated 07/26/2014. FINDINGS: Breast Composition: The breasts are heterogeneously dense, which may obscure small masses. There are no dominant masses or suspicious calcifications. A tissue clip marker is seen within a tiny nodular density in the upper the lateral aspect of the left breast. Stable small benign-appearing lateral The lungs. No other significant abnormalities are identified. There has been no significant change since the prior study. BI/SCRN MAMM (CAD)W/BRADEN BILAT IMPRESSION: Stable bilateral screening mammogram. Yearly follow-up mammogram recommended. (A) ASSESSMENT CATEGORY: BIRADS Category 2: Benign. A letter regarding these results will be sent to the patient by the facility within 30 days. Approximately 10% of breast cancers are not detected by mammography. A normal mammogram should not delay biopsy of a clinically suspicious abnormality. [id number] Electronically Signed: Leoncio Gorman MD at 14:49 EST , CC: Dr. Mable Ford DO Supervisor Taping: Signed Mable Ford DO Work Phone: Start: 12-21-2021 End: 12-21-2021 Emergency Department Summary Procedure Note: See Note; NOTES: [facility] Medical Records Department [address] [place] [address] Emergency Department Summary 12/21/21 MR#: [id number] Acct: [id number] Name: MARLIN JARRELL Rep #: [id number] : 1955 66 From: Chelo De DO PCP: Dr. Mable Ford DO Status:REG ER Location: ED HPI History of Present Illness Chief Complaint: Complaint Informant: patient Narrative Narrative: Patient is a 66-year-old female with history of hypertension hyperlipidemia as well as recent urinary tract infection. She is presenting with flulike symptoms. Patient recently completed a course of antibiotics for UTI. She believes it was Bactrim. Initially she was on another antibiotic that she describes as a yellow and trotter capsule but she states she could not tolerate it. Her urinary symptoms cleared up over the weekend however yesterday and into today patient developed flulike symptoms. Patient has had associated vomiting, fever up to 100.1, body aches, decreased energy and feels unstable. Has had no further urinary symptoms. No URI symptoms. Did have Tylenol around 8 AM this morning. No rash reported. Patient states that she feels that she is going to have diarrhea. No sick contacts. Her reports that this is how she felt when she had COVID. PFSH PFSH Home Medications lisinopril 2.5 mg tablet 2.5 mg PO QDAY #30 tabs 05/19/17 [Rx Last Taken Unknown] pravastatin 40 mg tablet 80 mg PO QDAY #60 tabs 06/13/17 [Rx Last Taken Unknown] Allergy/AdvReac Type Severity Reaction Status Date / Time No Known Allergies Allergy Verified 12/21/21 11:47 Social History Smoking Status: Never smoker ROS ROS ED Constitutional Constitutional ED: Reports chills and fever(s) Eyes Eyes: Denies change in vision ENT ENT ED: Denies ear pain, rhinorrhea or sore throat Cardiovascular Cardiovascular: Denies chest pain or palpitations Respiratory/Chest Respiratory/Chest: Denies cough or dyspnea Gastrointestinal Gastrointestinal: Reports nausea and vomiting; Denies abdominal pain, constipation or diarrhea Genitourinary Genitourinary ED: Denies dysuria, hematuria or urinary frequency Musculoskeletal Musculoskeletal: Reports myalgias; Denies arthralgias or neck pain Integumentary Denies rash Neurologic Neurologic: Reports headache(s); Denies paresthesias or weakness Psychiatric Psychiatric: Denies anxiety Hematologic/Lymphatic Hematologic/Lymphatic: Denies easy bleeding or easy bruising EXAM Physical Exam Const Vital Signs: 12/21/21 11:45 12/21/21 15:37 12/21/21 15:41 Temperature 97.6 F L 98.2 F Temperature Source Temporal Temporal Pulse Rate 79 64 64 Respiratory Rate 14 10 L 10 L Blood Pressure 133/86 H 125/85 H 125/85 H Blood Pressure Mean 101 98 98 Pulse Ox 97 98 98 Oxygen Delivery Method Room Air Room Air Room Air Positive well nourished and well developed General Appearance ED: well developed and NAD HEENT Reports TM's clear and moist mucous membranes Negative for trauma or tenderness Tympanic Membrane ED: Yes TM's clear Eyes PERRL and EOMs intact bilaterally Neck supple and no JVD Neck Narrative: No meningeal signs Chest Wall inspection of chest normal and palpation of chest normal Resp normal respiratory effort and clear to auscultation bilaterally Cardio regular rate, regular rhythm and no murmurs GI normal to inspection, nondistended, normoactive bowel sounds and non-tender Back/Spine no CVA tenderness Neuro oriented x3 and no sensory deficits noted Sensorium / Orientation: alert Motor Exam: strength 5/5 throughout and general weakness Psych mental status grossly normal Skin no rashes or lesions noted and no wounds MDM MDM MDM Narrative Medical decision making narrative: Patient evaluated for generalized malaise and weakness. She is hemodynamically stable but looks like she does not feel well. She is on Bactrim for UTI and felt that her urinary symptoms were improving until she just started to feel malaise and worse over the past day. She has nausea and vomiting. CBC shows a mild leukopenia and BMP shows a mild bump in her creatinine to 1.17. Her lactate is elevated 2.3. Urinalysis shows 150 ketones as well as 25-50 white blood cells with 1+ bacteria. There is some slight contamination but we will send for culture. Patient is given a dose of IV Rocephin. On repeat evaluation after IV fluids, Zofran and Tylenol she does not feel any better. I spoke with the patient's PCP who states the patient's culture on 12/03 was E. coli greater than 100,000 CFU's and pansensitive. Confirm that patient has been on Bactrim. Lab Data Attestation: I reviewed the patient's lab results. Labs: Laboratory Results - last 24 hr 12/21/21 12/21/21 12/21/21 14:03 14:03 14:03 WBC 3.0 L RBC 4.35 Hgb 13.6 Hct 41.3 MCV 94.9 MCH 31.3 MCHC 32.9 RDW Std Deviation 48.7 H RDW Coeff of Donavon 13.9 Plt Count 386 MPV 9.6 Immature Gran % (Auto) 0.700 Neut % (Auto) 50.0 Lymph % (Auto) 36.0 Sanborn % (Auto) 12.0 H Eos % (Auto) 0.3 Baso % (Auto) 1.0 Absolute Neuts (auto) 1.5 L Absolute Lymphs (auto) 1.08 Nucleated RBC % 0 Sodium 135 L Potassium 3.7 Chloride 101 Carbon Dioxide 25.0 Anion Gap 9 BUN 14 Creatinine 1.17 H Estim Creat Clear Calc 39.74 Est GFR (MDRD) Af Amer 59 L Est GFR (MDRD) Non-Af 49 L BUN/Creatinine Ratio 12.0 Glucose 116 H Lactic Acid 2.3 H* Calcium 9.4 Total Bilirubin 0.30 AST 28 ALT 30 Alkaline Phosphatase 120 H Total Protein 8.1 Albumin 3.9 Globulin 4.2 Albumin/Globulin Ratio 0.9 Lipase 118 Urine Color Urine Clarity Urine pH Ur Specific Belmont Urine Protein Urine Glucose (UA) Urine Ketones Urine Occult Blood Urine Nitrite Urine Bilirubin Urine Urobilinogen Ur Leukocyte Esterase Urine RBC Urine WBC Ur Squamous Epith Cells Urine Bacteria Urine Mucus 12/21/21 15:09 WBC RBC Hgb Hct MCV MCH MCHC RDW Std Deviation RDW Coeff of Donaovn Plt Count MPV Immature Gran % (Auto) Neut % (Auto) Lymph % (Auto) Sanborn % (Auto) Eos % (Auto) Baso % (Auto) Absolute Neuts (auto) Absolute Lymphs (auto) Nucleated RBC % Sodium Potassium Chloride Carbon Dioxide Anion Gap BUN Creatinine Estim Creat Clear Calc Est GFR (MDRD) Af Amer Est GFR (MDRD) Non-Af BUN/Creatinine Ratio Glucose Lactic Acid Calcium Total Bilirubin AST ALT Alkaline Phosphatase Total Protein Albumin Globulin Albumin/Globulin Ratio Lipase Urine Color Yellow Urine Clarity Sl. Cloudy Urine pH 6.0 Ur Specific Belmont 1.020 Urine Protein 30 H Urine Glucose (UA) Normal Urine Ketones 150 A* Urine Occult Blood 25 H Urine Nitrite Negative Urine Bilirubin 1 H Urine Urobilinogen Normal Ur Leukocyte Esterase 500 H Urine RBC 0-5 SEEN Urine WBC 25-50 SEEN Ur Squamous Epith Cells 5-10 SEEN Urine Bacteria 1+ Urine Mucus 0 SEEN Radiography Chest X-Ray - ED: 2 View, Read by ED Physician, Read by Radiologist and No Acute Disease Diagnostic Testing: Clinical Impression(s) from Imaging Studies Chest X-Ray 12/21/21 13:36 IMPRESSION: Mild degree of increased markings at the lung bases slightly more prominent on the right side suggestive of mild linear atelectasis superimposed on scarring. Electronically Signed: Leoncio Gorman MD at 14:44 EST Reading Location ID and State: [address] [place] [address] , Service support , Discharge Plan Triage Chief Complaint: Complaint ED Provider: Chelo De Dx/Rx/DC Orders Clinical Impression: Acute UTI, Acute dehydration, Failure of outpatient treatment Prescriptions: No Action lisinopril 2.5 mg tablet 2.5 mg PO QDAY Qty: 30 11RF pravastatin 40 mg tablet 80 mg PO QDAY Qty: 60 12RF Primary Care Provider: Mable Ford Referrals: Mable Ford DO [Primary Care Provider] - Disposition Disposition: Acute Care Hospital [facility] What to do if you have Problems For any increased pain, shortness of breath, bleeding, nausea or vomiting, chest pain, or any unexpected problems, contact your Primary Care Provider. Call [facility] ([phone]) or report to the closest Emergency Room. Call 911 if necessary. 12/21/21 1605 <Electronically signed by Chelo De DO> Cosigner Signature (if applicable): CC: Dr. Mable Ford DO Signed Mable Ford DO Work Phone: Start: 12-21-2021 End: 12-21-2021 Chest PA and Lateral Procedure Note: See Note; NOTES: [facility] Imaging Services [address] [place] [address] Chest PA and Lateral MR#: [id number] Acct: [id number] Name: MARLIN JARRELL Rep #: [id number] : 1955 F 66 From: Leoncio adams MD PCP: Dr. Mable Ford DO Status: REG ER Study: Chest PA and Lateral Date of Exam: 12/21/21 Exam# [id number] Ordering Dr: Chelo De DO STUDY: X-RAY CHEST REASON FOR EXAM: Female, 66 years old. Cough. Fever and body chills History of UTI. TECHNIQUE: PA and lateral views of the chest. COMPARISON: None. FINDINGS: Hyperinflation. Mild increased linear markings at the lung bases slightly more prominent at the right lung base. This may represent a combination of the scarring and possible atelectasis. There is no demonstrated pleural abnormality. Sternal cerclage wires and vascular clips are present from a prior sternotomy and coronary artery bypass graft procedure (CABG). Normal mediastinum and saravanan. Normal visualized pulmonary arteries. There is atherosclerotic calcification of the aortic arch with tortuosity. There are diffuse degenerative changes of the visualized thoracic spine. Normal visualized ribs, clavicles, and shoulders. There is no demonstrated abnormality of the visualized soft tissue structures of the upper abdomen. RAD/Chest PA and Lateral IMPRESSION: Mild degree of increased markings at the lung bases slightly more prominent on the right side suggestive of mild linear atelectasis superimposed on scarring. Electronically Signed: Leoncio Gorman MD at 14:44 EST , CC: Dr. Chelo De DO; Dr. Mable Ford DO Supervisor Taping: Signed Mable Ford DO Work Phone: Start: 12-21-2021 Plain chest X-ray Dr. Garrett De La Fuente Work Phone: Start: 11-06-2021 Plain X-ray of shoulder Dr. Garrett De La Fuente Work Phone: Start: 11-06-2021 End: 11-06-2021 Shoulder min 2 Views Procedure Note: See Note; NOTES: [facility] Radiology [address] [place] [address] Shoulder min 2 Views MR#: [id number] Acct: [id number] Name: MARLIN JARRELL Rep #: [id number] : 1955 F 66 From: Hamlet Jurado DO PCP: Status: DEP AMB Study: Shoulder min 2 Views Date of Exam: 11/06/21 Exam# [id number] Ordering Dr: Mable Ford DO INDICATION: ACUTE PAIN EXAMINATION/TECHNIQUE: X-RAY - RIGHT XR Shoulder Min 2 Views 4 VIEWS COMPARISON: None. FINDINGS: SOFT TISSUES: No soft tissue swelling or gas. No soft tissue calcifications. No radiopaque foreign body. BONES/JOINTS: No acute fracture or malalignment. Preservation of the joint space and no degenerative bony proliferative changes. Erosive appearance greater tuberosity with relatively corticated margins suggesting chronic etiology, however active inflammatory process cannot be excluded. Thoracotomy wires noted. Right chest is clear. Degenerative changes visualized cervical and thoracic spine. RAD/Shoulder min 2 Views IMPRESSION: Erosive appearance greater tuberosity may represent insertional enthesopathy. Electronically Signed: Hamlet Jurado DO at 20:41 EDT , CC: Dr. Mable Ford DO Supervisor Taping: Signed Mable Ford DO Work Phone: Start: 04-10-2021 End: 04-10-2021 Hand 2 Views Comments: See Note; NOTES: [facility] Radiology [address] [place] [address] Hand 2 Views MR#: [id number] Acct: [id number] Name: MARLIN JARRELL Rep #: [id number] : 1955 F 65 From: Newton Marie MD PCP: Status: DEP AMB Study: Hand 2 Views Date of Exam: 04/10/21 Exam# [id number] Ordering Dr: Mable Ford DO STUDY: X-RAY - LEFT HAND REASON FOR EXAM: Female, 65 years old. PAIN TECHNIQUE: 3 view(s) of the hand. COMPARISON: None. FINDINGS: Bones are demineralized. Normal radiocarpal articulation. Normal distal radioulnar joint. Normal visualized carpal bones. Normal carpal articulations Normal carpometacarpal articulation of the thumb. Normal second through fifth carpometacarpal joints. Normal metacarpi. Normal metacarpophalangeal joint of the thumb. Normal interphalangeal joint of the thumb. Normal proximal and distal phalanges of the thumb. Normal metacarpophalangeal joints of the second through fifth fingers. Normal proximal and distal interphalangeal joints of the second through fifth fingers. Normal phalanges of the second through fifth fingers. Vascular calcifications noted. RAD/Hand 2 Views IMPRESSION: Demineralization. No demonstrated fracture or joint space abnormality Electronically Signed: Betito Marie MD at 14:33 EST , CC: Dr. Mable Ford DO Supervisor Taping: Signed Mable Ford DO Work Phone: Start: 06-05-2020 End: 06-05-2020 Foot min 3 Views Comments: See Note; NOTES: [facility] Radiology [address] [place] [address] Foot min 3 Views MR#: [id number] Acct: [id number] Name: MARLIN JARRELL Rep #: [id number] : 1955 F 65 From: Luke Golden PCP: Status: DEP AMB Study: Foot min 3 Views Date of Exam: 06/05/20 Exam# [id number] Ordering Dr: Mable Ford DO STUDY: X-RAY - LEFT FOOT CLINICAL: Lateral foot pain near heel for months, no specific injury. TECHNIQUE: 3 view(s) of the foot. COMPARISON: None. FINDINGS: There is a plantar calcaneal enthesophyte. Otherwise, unremarkable talus, calcaneus, and tarsal bones. Normal visualized subtalar, talonavicular, calcaneocuboid, tarsal and tarsometatarsal articulations. Normal metatarsi. Normal metatarsophalangeal joint of the great toe. Normal tibial and fibular sesamoid bones. Normal interphalangeal joint of the great toe. Normal phalanges of the great toe. Normal second through fifth metatarsophalangeal joints. Normal interphalangeal joints and phalanges of the lesser toes. The soft tissue structures are unremarkable. RAD/Foot min 3 Views IMPRESSION: Plantar calcaneal enthesophyte. Electronically Signed: Luke Gilman MD at 11:29 EDT Tel , Service support , CC: Dr. Mable Ford DO Supervisor Taping: Signed Mable Ford DO Work Phone: Start: 08-29-2014 End: 08-29-2014 Operative Report Comments: See Note; NOTES: [facility] Medical Records Department [address] [place] [address] Operative Report 08/29/14 1113 MR#: [id number] Acct: [id number] Name: MARLIN JARRELL Rep #: [id number] : 1955 59 From: Mimi Ferguson MD PCP: Diana Prater MD Status: REG CLI Y Location: [facility] Report of Operation Date of Procedure: 08/29/14 Pre-Operative Diagnosis: abnormal left breast lesion by ultrasound Post-Operative Diagnosis: same Surgery/Procedure Performed:: US guided left breast biopsy with vacuum assistance Type of Anesthesia:: Local - 1% xylocaine with epinephrine Specimen's removed: left breast tissue Estimated Blood Loss: < 1 cc Fluids Replaced: none Description of Procedure: After informed consent was given, the patient was brought to the ultrasound suite, and placed in the supine position. Appropriate time out protocol was followed. Using the ultrasound transducer, the suspicious lesion was localized and then marked with a marking pen on the patient s left breast. It was in the upper outer quadrant of the left breast. The skin at where the biopsy stylus would be entering into the patient s breast was then cleansed with alcohol and the skin and subcutaneous tissues at the biopsy site were infiltrated with 1% xylocaine. A small skin incision was made with an 11 blade scalpel. Holding the transducer in my left hand, I guided the biopsy stylus to just beneath the lesion under direct ultrasound guidance. The biopsy trough was then opened and noted under ultrasound guidance, such that it was ensured that the lesion was able to be biopsied. Several core samples of breast tissue were then obtained and this was visualized under ultrasound guidance. A marker clip was then placed into the patient s breast at the biopsy site and this was visualized under ultrasound guidance. Hemostasis was achieved using pressure. The skin incision was then reapproximated using steristrips and a sterile dressing was applied. The patient tolerated the procedure well. She was discharged from the radiology suite in stable condition. - Complications none noted - Admit VTE Documentation VTE Present on Admission: No - low risk procedure VTE Mechan Device Prophylaxis: None VTE Pharm Prophylaxis ordered?: No Reason prophylaxis not ordered:: Treatment Not Indicated 08/29/14 1116 <Electronically signed by Mimi Ferguson MD> Date Mimi Ferguson MD CC: Diana Prater MD; Mimi Ferguson MD Signed Mable Ford Start: 08-29-2014 End: 08-29-2014 US Breast Biopsy 1st Lesion Comments: See Note; NOTES: [facility] Imaging Services [address] [place] [address] Ultrasound Report MR#: [id number] Acct: [id number] Name: MARLIN JARRELL Rep #: [id number] : 1955 F 59 From: Fan Noble DO PCP: Diana Prater MD Status: REG CLI Study: US Breast Biopsy 1st Lesion Date of Exam: 08/29/14 Exam# [id number] Ordering Dr: Mimi Ferguson MD STUDY: ULTRASOUND BREAST - LEFT REASON FOR EXAM: Female, 59 years old. Left breast lesion. TECHNIQUE: Axial and longitudinal images of the LEFT breast were performed with a high resolution ultrasound transducer. COMPARISON: Left breast ultrasound, July 30, 2014. FINDINGS: LEFT Breast: Reidentification of the nodular density in the 12:00 position left breast was performed. Subsequent images demonstrate placement of a biopsy needle into the area of the mass. Please refer to the procedural report for further details. IMPRESSION: Ultrasound guidance during the performance of a left breast mass biopsy. Electronically Signed: Fan Noble DO at 10:32 EDT Tel [phone], Service support [phone], CC: Diana Prater MD; Mimi Ferguson MD Supervisor Taping: Signed Mable Ford Start: 07-30-2014 End: 07-30-2014 Unilat Lt Diag Digital AND CAD Comments: See Note; NOTES: [facility] Imaging Services [address] [place] [address] Breast Imaging Report MR#: [id number] Acct: [id number] Name: MARLIN JARRELL Rep #: [id number] : 1955 F 59 From: Leoncio Gorman MD PCP: Diana Prater MD Status: REG CLI Study: Unilat Lt Diag Digital AND CAD Date of Exam: 07/30/14 Exam# [id number] Ordering Dr: Diana Prater MD MAMMOGRAPHY - UNILATERAL DIAGNOSTIC: LEFT BREAST REASON FOR EXAM: Female, 59 years old. Additional views of the left breast were obtained. PERTINENT HISTORY: Non-contributory. TECHNIQUE: Digital examination. 90? lateral as well as compression spot views and rolled views of the left breast were obtained. CAD: CAD was performed on this study. COMPARISON: Comparison is made with prior study dated July 26, 2014. FINDINGS: Breast Composition: There are scattered areas of fibroglandular density. There is an 8.2 mm well-defined nodule in the upper lateral aspect of the left breast. The previously seen nodules in the mid breast are not seen at this time and represents superimposition of tissue. No other significant abnormalities are identified. IMPRESSION: Single well-defined 8.2 mm nodule is seen in the upper outer aspect of the left breast. ASSESSMENT CATEGORY: BIRADS Category 2: Benign. A letter regarding these results will be sent to the patient by the facility within 30 days. Approximately 10% of breast cancers are not detected by mammography. A normal mammogram should not delay biopsy of a clinically suspicious abnormality. Electronically Signed: Leoncio Gorman MD at 12:34 EDT Tel [phone], Service support [phone], CC: Diana Prater MD Supervisor Taping: Signed Diana Prater Work Phone: Start: 07-30-2014 End: 07-30-2014 Breast Complete Unilateral Comments: See Note; NOTES: [facility] Imaging Services [address] [place] [id number] Ultrasound Report MR#: [id number] Acct: [id number] Name: MARLIN JARRELL Rep #: [id number] : 1955 F 59 From: Leoncio Gorman MD PCP: Diana Prater MD Status: REG CLI Study: Breast Complete Unilateral Date of Exam: 07/30/14 Exam# [id number] Ordering Dr: Diana Prater MD STUDY: ULTRASOUND BREAST - LEFT REASON FOR EXAM: Female, 59 years old. Left breast nodule. TECHNIQUE: Axial and longitudinal images of the LEFT breast were performed with a high resolution ultrasound transducer. COMPARISON: Comparison is made with prior study dated July 26, 2014 and July 30, 2014. FINDINGS: LEFT Breast: There is a 9 mm x 8 mm x 5 mm well-defined solid nodule at the 12:00 position the breast at 3 cm from the nipple. This corresponds to the mammographic findings. This most likely represents a fibroadenoma although tissue diagnosis is recommended for further evaluation. IMPRESSION: 9 mm x 8 mm x 5 mm well-defined solid nodule at the 12:00 position the breast at 3 cm from nipple. Tissue diagnosis is recommended. ASSESSMENT CATEGORY: BIRADS Category 4: Suspicious - Biopsy Should Be Considered. A letter regarding these results will be sent to the patient by the facility within 30 days. Electronically Signed: Leoncio Gorman MD at 12:36 EDT Tel [phone], Service support [phone], CC: Diana Prater MD Supervisor Taping: Signed Diana Prater Work Phone: Start: 07-26-2014 End: 07-29-2014 Bilat Scrn Digital AND CAD Comments: See Note; NOTES: [facility] Imaging Services [address] [place] [address] Breast Imaging Report MR#: [id number] Acct: [id number] Name: MARLIN JARRELL Rep #: [id number] : 1955 F 59 From: Leoncio Gorman MD PCP: Diana Prater MD Status: REG CLI Study: Bilat Scrn Digital AND CAD Date of Exam: 07/26/14 Exam# [id number] Ordering Dr: Diana Prater MD MAMMOGRAPHY - BILATERAL SCREENING REASON FOR EXAM: Female, 59 years old. Routine annual screening examination. PERTINENT HISTORY: Non-contributory. TECHNIQUE: Digital examination. Mediolateral oblique (MLO) and craniocaudad (CC) views of both breasts were obtained. CAD: CAD was performed on this study. COMPARISON: None. Baseline examination. FINDINGS: Breast Composition: There are scattered areas of fibroglandular density. Scattered nodular densities are seen in the left breast. The largest measures 7.6 mm. Correlation with ultrasound is recommended. No other significant abnormalities are identified. IMPRESSION: Scattered nodular densities in the left breast as described. Correlation with ultrasound is recommended. ASSESSMENT CATEGORY: BIRADS Category 0: Incomplete. Need additional imaging evaluation. A letter regarding these results will be sent to the patient by the facility within 30 days. Approximately 10% of breast cancers are not detected by mammography. A normal mammogram should not delay biopsy of a clinically suspicious abnormality. Electronically Signed: Leoncio Gorman MD at 10:03 EDT Tel [phone], Service support [phone], CC: Diana Prater MD Supervisor Taping: Signed Diana Prater Work Phone: Bacteria identified in Blood by Culture Dr. Chelo De Work Phone: Enteric Bacteriology Dr. Cecy De Work Phone: Respiratory Panel (PCR) Dr. Chelo De Work Phone: SARS-CoV-2 & FLU Antigen (Rapid) Dr. Garrett De La Fuente Work Phone: Tonsillectomy Munira courtney Comment on above: as a child Tonsillectomy Viviana Gravius Comment on above: as a child Tonsillectomy Viviana Gravius Comment on above: as a child Tonsillectomy Viviana Gravius Comment on above: as a child Tonsillectomy Nohemi Koby Comment on above: as a child Tonsillectomy Ienz Sheldon Comment on above: as a child Tonsillectomy Nohemi Cross Comment on above: as a child Tonsillectomy Nohemi Cross L PN Comment on above: as a child Tonsillectomy Nohemi Cross L PN Comment on above: as a child Tonsillectomy Inez Sheldon [employer]IC[employer] Comment on above: as a child Tonsillectomy Lotus Cain MA Comment on above: as a child Tonsillectomy Kayela Scalf MARYLOU Comment on above: as a child Tonsillectomy Nathan Jeffery PN Comment on above: as a child Tonsillectomy Kayela Scalf MARYLOU Comment on above: as a child Tonsillectomy Kait Donavan k [employer] PROFESSIONAL Tonsillectomy Kayela Unique [employer] PROFESSIONAL Tonsillectomy Kayela Scalf [employer] PROFESSIONAL Tonsillectomy Marvin Mary Ann L PN Tonsillectomy BEBO Barry [employer] OFFICER Triple Bypass Munira courtney Comment on above: 2008 Triple Bypass Viviana Debbievera Comment on above: 2008 Triple Bypass Viviana Gravvera Comment on above: 2008 Triple Bypass Viviana Gravius Comment on above: 2008 Triple Bypass Nohemi Koby Comment on above: 2008 Triple Bypass Inez Sheldon Comment on above: 2008 Triple Bypass Nohemijuliano Whalen Comment on above: 2008 Triple Bypass Nohemi Cross L PN Comment on above: 2008 Triple Bypass Nohemi Cross L PN Comment on above: 2008 Triple Bypass Inez Monalisa [employer]ICER Comment on above: 2008 Triple Bypass Lotus Cain MA Comment on above: 2008 Triple Bypass Alejandralaceya Unique [employer] PROFESSIONAL Comment on above: 2008 Triple Bypass Nathan Jeffery PN Comment on above: 2008 Triple Bypass Alejandrayeldaryl Scalf [facility] Comment on above: [address] Chelo Hayes artem Work Phone: Kaitrita Archuleta [employer] PROFESSIONAL Kayela Scalf [employer] PROFESSIONAL Kayela Scalf [employer] PROFESSIONAL Marvin Mary Ann LP N BEBO Barry [employer] OFFICER Plan of Treatment Date Care Activity Detail Author Start: 12-03-2022 Procedure Education [facility]; [facility] Work Phone: Start: 12-03-2022 Provider Instruction s for Treatment [facility]; [facility] Work Phone: Start: 12-03-2022 Hemoglobin glycosyla hammad a1c [facility]; [facility] Work Phone: Start: 12-03-2022 Gluc bld gluc mntr d ev cleared fda spec home use [facility]; [facility] Work Phone: Start: 08-02-2022 Procedure Education [facility]; [facility] Work Phone: Start: 08-02-2022 Provider Instruction s for Treatment [facility]; [facility] Work Phone: Start: 08-02-2022 Assay of thyroid stimulating hormone tsh [facility]; [facility] Work Phone: Start: 08-02-2022 Urnls dip stick/tabl et reagent auto microscopy [facility]; [facility] Work Phone: Start: 08-02-2022 Urine albumin quantitative [facility]; [facility] Work Phone: Start: 08-02-2022 Comprehensive metabo lic panel [facility]; [facility] Work Phone: Start: 08-02-2022 Lipid panel Com[facility]; [facility] Work Phone: Start: 08-02-2022 Blood count complete auto&auto difrntl wbc [facility]; [facility] Work Phone: Start: 08-02-2022 Gluc bld gluc mntr d ev cleared fda spec home use [facility]; [facility] Work Phone: Start: 08-02-2022 Hemoglobin glycosyla hammad a1c [facility]; [facility] Work Phone: Start: 08-02-2022 [facility] Work Phone: Start: 03-15-2022 Gluc bld gluc mntr d ev cleared fda spec home use [facility]; [facility] Work Phone: Start: 03-15-2022 Procedure Education [facility]; [facility] Work Phone: Start: 03-15-2022 Provider Instruction s for Treatment [facility]; [facility] Work Phone: Start: 01-25-2022 Procedure Education [facility]; [facility] Work Phone: Start: 01-25-2022 Provider Instruction s for Treatment [facility]; [facility] Work Phone: Start: 01-19-2022 Dual energy X-ray absorptiometry Dexa Bone Density Study [facility] Work Phone: Start: 01-19-2022 DXA Bone [Mass/Area] Bone density [facility] Work Phone: Start: 01-07-2022 Procedure Education [facility]; [facility] Work Phone: Start: 01-07-2022 Provider Instruction s for Treatment [facility]; [facility] Work Phone: Start: 01-07-2022 Culture bct isol&prs mptv id isolate ea urine [facility]; [facility] Work Phone: Start: 01-07-2022 Basic metabolic pane l calcium total [facility]; [facility] Work Phone: Start: 01-07-2022 Blood count complete auto&auto difrntl wbc [facility]; [facility] Work Phone: Start: 12-23-2021 Patient discharge [facility] Work Phone: Start: 12-21-2021 Following clinical pathway protocol [facility] Work Phone: Start: 12-21-2021 Assessment of risk o f venous thromboembolism [facility] Work Phone: Start: 12-21-2021 Care regimes management [facility] Work Phone: Start: 12-21-2021 Insertion of cathete r into peripheral vein [facility] Work Phone: Start: 12-21-2021 Providing care accor ding to standard [facility] Work Phone: Start: 12-21-2021 Referral to occupati onal therapist [facility] Work Phone: Start: 12-21-2021 Referral to service [facility] Work Phone: Start: 12-21-2021 [facility] Work Phone: Start: 12-21-2021 Verification routine [facility] Work Phone: Start: 12-21-2021 Blood culture [facility] Work Phone: Start: 12-21-2021 Admission procedure [facility] Work Phone: Start: 12-21-2021 [facility] Work Phone: Start: 12-21-2021 Patient referral to dietitian [facility] Work Phone: Start: 12-21-2021 [facility] Work Phone: Start: 12-03-2021 Procedure Education [facility]; [facility] Work Phone: Start: 12-03-2021 Culture bct isol&prs mptv id isolate ea urine URINE MORGAN CULTURE-IDENTIFICATN (10317) [facility]; [facility] Work Phone: Start: 11-06-2021 Procedure Education [facility]; [facility] Work Phone: Start: 11-06-2021 Provider Instruction s for Treatment [facility]; [facility] Work Phone: Start: 11-06-2021 Assay of thyroid stimulating hormone tsh [facility]; [facility] Work Phone: Start: 11-06-2021 Urnls dip stick/tabl et reagent auto microscopy [facility]; [facility] Work Phone: Start: 11-06-2021 Urine albumin quantitative [facility]; [facility] Work Phone: Start: 11-06-2021 Comprehensive metabo lic panel [facility]; [facility] Work Phone: Start: 11-06-2021 Blood count complete auto&auto difrntl wbc [facility]; [facility] Work Phone: Start: 11-06-2021 Lipid panel [facility]; [facility] Work Phone: Start: 08-05-2021 Procedure Education [facility]; [facility] Work Phone: Start: 08-05-2021 Provider Instruction s for Treatment [facility]; [facility] Work Phone: Start: 08-05-2021 [facility]; [facility] Work Phone: Start: 04-10-2021 Blood count complete auto&auto difrntl wbc CBC, PLATELETS & AUT DIFF (90003) [facility]; [facility] Work Phone: Start: 04-10-2021 Creatinine other source [facility]; [facility] Work Phone: Start: 04-10-2021 Assay of thyroid stimulating hormone tsh TSH (THYROID STIMULATING HORMONE) (55011) [facility]; [facility] Work Phone: Start: 04-10-2021 Comprehensive metabo lic panel METABOLIC PANEL, COMPREHENSIVE (50692) [facility]; [facility] Work Phone: Start: 04-10-2021 Urinalysis microscop ic only [facility]; [facility] Work Phone: Start: 04-10-2021 Lipid panel LIPID PANEL (66782) [facility]; [facility] Work Phone: Start: 04-09-2021 Procedure Education [facility]; [facility] Work Phone: Start: 04-09-2021 Provider Instruction s for Treatment [facility]; [facility] Work Phone: Start: 04-09-2021 Hemoglobin glycosyla hammad a1c [facility]; [facility] Work Phone: Start: 04-09-2021 Assay of thyroid stimulating hormone tsh [facility]; [facility] Work Phone: Start: 04-09-2021 Urnls dip stick/tabl et reagent auto microscopy [facility]; [facility] Work Phone: Start: 04-09-2021 Urine albumin quantitative [facility]; [facility] Work Phone: Start: 04-09-2021 Comprehensive metabo lic panel [facility]; [facility] Work Phone: Start: 04-09-2021 Lipid panel [facility]; [facility] Work Phone: Start: 04-09-2021 Blood count manual c ell count each [facility]; [facility] Work Phone: Start: 01-08-2021 Procedure Education [facility]; [facility] Work Phone: Start: 01-08-2021 Provider Instruction s for Treatment [facility]; [facility] Work Phone: Start: 09-08-2020 Procedure Education [facility]; [facility] Work Phone: Start: 09-08-2020 Provider Instruction s for Treatment [facility]; [facility] Work Phone: Start: 06-05-2020 Procedure Education [facility]; [facility] Work Phone: Start: 06-05-2020 Provider Instruction s for Treatment [facility]; [facility] Work Phone: Start: 05-29-2020 Procedure Education Eprescribe d prescriptions (G8553) [facility]; [facility] Work Phone: Start: 05-29-2020 Provider Instruction s for Treatment COVID SCREENING FORM [facility]; [facility] Work Phone: Start: 02-20-2020 Procedure Education [facility]; [facility] Work Phone: Start: 02-20-2020 Provider Instruction s for Treatment [facility]; [facility] Work Phone: Start: 02-20-2020 TSH Qn TSH (THYROID STIMULATING HORMONE) (68464) [facility]; [facility] Work Phone: Start: 02-20-2020 Urine albumin quantitative MICROALBUMIN: CREATININE RATIO (17782) AND (04994) [facility]; [facility] Work Phone: Start: 02-20-2020 Comprehensive metabo lic panel METABOLIC PANEL, COMPREHENSIVE (68137) [facility]; [facility] Work Phone: Start: 02-20-2020 Lipoprotein blood qu an numbers & subclasses NMR Profile (71852) [facility]; [facility] Work Phone: Start: 02-20-2020 Blood count complete auto&auto difrntl wbc CBC with auto diff (00871) [facility]; [facility] Work Phone: Start: 02-20-2020 HbA1c (Bld) [Mass fraction] HGB A1C (17012) [facility]; [facility] Work Phone: Start: 12-06-2019 Procedure Education [facility] Work Phone: Start: 12-06-2019 Provider Instruction s for Treatment [facility] Work Phone: Start: 11-19-2019 Procedure Education [facility] Work Phone: Start: 11-19-2019 Provider Instruction s for Treatment [facility] Work Phone: Start: 08-16-2019 Procedure Education [facility] Work Phone: Start: 08-16-2019 Provider Instruction s for Treatment [facility] Work Phone: Start: 08-16-2019 Lipoprotein blood qu an numbers & subclasses NMR Profile (03517) [facility] Work Phone: Start: 08-16-2019 TSH Qn TSH (45109) [facility] Work Phone: Start: 08-16-2019 Urnls dip stick/tabl et reagent auto microscopy [facility] Work Phone: Start: 08-16-2019 Urine albumin quantitative [facility] Work Phone: Start: 08-16-2019 Comprehensive metabo lic panel METABOLIC PANEL, COMPREHENSIVE (08823) [facility] Work Phone: Start: 08-16-2019 Blood count complete auto&auto difrntl wbc CBC W/AUTO DIFF WBC (39197) [facility] Work Phone: Start: 08-16-2019 HbA1c (Bld) [Mass fraction] HgA1C , Office (30935) [facility] Work Phone: Start: 08-16-2019 Gluc bld gluc mntr d ev cleared fda spec home use [facility]; [facility] Work Phone: Start: 08-16-2019 Glucose [Mass/Vol] Blood Gluco se , Office (30187) [facility] Work Phone: Start: 04-18-2019 Lipid panel Com[facility] Work Phone: Start: 04-16-2019 Procedure Education [facility] Work Phone: Start: 04-16-2019 Provider Instruction s for Treatment [facility] Work Phone: Start: 02-09-2019 Procedure Education [facility] Work Phone: Start: 08-16-2018 Procedure Education [facility] Work Phone: Start: 08-16-2018 Provider Instruction s for Treatment [facility] Work Phone: Start: 08-16-2018 Lipoprotein blood qu an numbers & subclasses [facility] Work Phone: Start: 05-17-2018 Procedure Education [facility] Work Phone: Start: 05-17-2018 Provider Instruction s for Treatment [facility] Work Phone: Start: 05-17-2018 Protein mass conc NMR Profile (51105 ) [facility] Work Phone: Start: 05-17-2018 Thyrotropin Qn TSH (64461) [facility] Work Phone: Start: 05-17-2018 Urnls dip stick/tabl et reagent auto microscopy [facility] Work Phone: Start: 05-17-2018 Urine albumin quantitative [facility] Work Phone: Start: 05-17-2018 Comprehensive metabo lic panel METABOLIC PANEL, COMPREHENSIVE (16012) [facility] Work Phone: Start: 05-17-2018 Blood count complete auto&auto difrntl wbc CBC W/AUTO DIFF WBC (28450) [facility] Work Phone: Start: 12-21-2017 Provider Instruction s for Treatment [facility] Work Phone: Start: 12-21-2017 Assay of thyroid stimulating hormone tsh [facility]; [facility] Work Phone: Start: 12-21-2017 Thyrotropin Qn TSH (44796) [facility] Work Phone: Start: 12-21-2017 Urnls dip stick/tabl et reagent auto microscopy [facility] Work Phone: Start: 12-21-2017 Urine albumin quantitative [facility] Work Phone: Start: 12-21-2017 Comprehensive metabo lic panel [facility] Work Phone: Start: 12-21-2017 Lipid panel [facility] Work Phone: Start: 12-21-2017 Blood count complete auto&auto difrntl wbc [facility] Work Phone: Start: 08-18-2017 Provider Instruction s for Treatment [facility] Work Phone: Start: 08-18-2017 Urnls dip stick/tabl et reagent auto microscopy [facility] Work Phone: Start: 08-18-2017 Urine albumin quantitative [facility] Work Phone: Start: 04-21-2016 Patient Education [facility] Work Phone: Start: 04-21-2016 Procedure Education [facility] Work Phone: Start: 04-21-2016 Provider Instruction s for Treatment [facility] Work Phone: Start: 02-16-2016 Patient Education [facility] Work Phone: Start: 02-16-2016 Procedure Education [facility] Work Phone: Start: 09-09-2015 Procedure Education [facility] Work Phone: Start: 09-09-2015 Provider Instruction s for Treatment [facility] Work Phone: Start: 09-09-2015 Hemoglobin A1c/Hemoglobin.total mass fraction (Bld) HGB A1C (01808) [facility] Work Phone: Start: 09-09-2015 Hemoglobin glycosyla hammad a1c [facility]; [facility] Work Phone: Start: 09-09-2015 Urine albumin quantitative [facility] Work Phone: Start: 09-09-2015 Blood count manual c ell count each [facility] Work Phone: Start: 09-09-2015 Comprehensive metabo lic panel [facility] Work Phone: Start: 09-09-2015 Lipid panel [facility] Work Phone: Start: 02-03-2015 Urine albumin quantitative [facility] Work Phone: Start: 02-03-2015 Comprehensive metabo lic panel [facility] Work Phone: Start: 02-03-2015 Lipid panel [facility] Work Phone: Start: 02-03-2015 Blood count manual c ell count each [facility] Work Phone: Start: 01-09-2015 Patient Education [facility] Work Phone: Start: 01-09-2015 Procedure Education [facility] Work Phone: Start: 08-27-2014 Procedure Education [facility] Work Phone: Start: 07-30-2014 Procedure Education [facility] Work Phone: Start: 07-25-2014 Comprehensive metabo lic panel [facility] Work Phone: Start: 07-25-2014 Blood count manual c ell count each [facility] Work Phone: Start: 07-25-2014 Urine albumin quantitative [facility] Work Phone: Start: 07-25-2014 Assay of thyroid stimulating hormone tsh [facility]; [facility] Work Phone: Start: 07-25-2014 Thyrotropin Qn TSH (36468) [facility] Work Phone: Start: 07-25-2014 Rheumatoid factor quantitative [facility] Work Phone: Start: 07-25-2014 Antinuclear antibodi es aislinn [facility]; [facility] Work Phone: Start: 07-25-2014 Nuclear Ab IF titer (S) AISLINN (A NTINUCLEAR ANTIBODY) (30965) [facility] Work Phone: Start: 07-25-2014 Sedimentation rate r bc non-automated [facility] Work Phone: Start: 07-25-2014 Lipid panel [facility] Work Phone: Start: 01-14-2014 Blood count complete auto&auto difrntl wbc [facility] Work Phone: Comment on above: cpy to Dr. de la fuente Start: 01-14-2014 Comprehensive metabo lic panel [facility] Work Phone: Start: 01-14-2014 Lipid panel [facility] Work Phone: Start: 01-14-2014 Hemoglobin A1c/Hemoglobin.total mass fraction (Bld) HgA1C , Office (35151) [facility] Work Phone: Start: 01-14-2014 Hemoglobin glycosyla hammad a1c [facility]; [facility] Work Phone: Start: 06-19-2013 Provider Instruction s for Treatment [facility] Work Phone: Start: 02-11-2012 Patient Education Compr [facility] Work Phone: Start: 08-17-2011 Blood count complete automated [facility] Work Phone: Start: 08-17-2011 Basic metabolic pane l calcium total [facility] Work Phone: Start: 07-09-2011 Provider Instruction s for Treatment [facility] Work Phone: Bacteria identified in Blood by Culture Blood Culture [facility] Work Phone: Bacteria identified in Urine by Culture Urine Culture [facility] Work Phone: Blood culture [facility] Work Phone: Lactic acid measurement [facility] Work Phone: Patient referral [facility] Work Phone: [facility] Work Phone: [facility] Work Phone: [facility] Work Phone[facility] Work Phone: [facility] Work Phone[facility] Work Phone: [facility] Work Phone: [facility] Work Phone: [facility] Work Phone: [facility] Work Phone: [facility] Work Phone: [facility] Work Phone[facility] Work Phone: [facility] Work Phone: [facility] Work Phone: [facility]; [facility] Work Phone: [facility] Work Phone: [facility]; [facility] Work Phone: [facility]; [facility] Work Phone: [facility]; [facility] Work Phone: [facility]; [facility] Work Phone: Immunizations Immunization Date Immunization Notes Care Provider [facility] 05-08-2020 COVID-Moderna (100 MCG/0.5 ML) Mable Ford DO Work Phone: [facility]; [facility] Work Phone: 05-02-2020 COVID-19 (Moderna) Mable Ford DO Work Phone: [facility]; [facility] Work Phone: Payers Date Payer Category Payer Self-pay [id number] 2023 Medicare [id number] 2020 Medicare JRI [id number] 2014 Unknown [id number] 1955 Unknown [id number] Unknown Unknown [id number] Unknown [id number] [id number] Unknown [id number] [id number] Unknown [id number] [id number] [id number] Social History Date Type Detail Facility Current Work/Study Status: Never smoker [facility] Work Phone: 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 Exercise History: Does not exercise. [facility] Work Phone: Living Situation [facility] Work Phone: Comment on above: lives with s pouse Tobacco use: Never smoker. 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 Exercise History: Exercise History: [facility]; [facility] Work Phone: Tobacco use: Tobacco use: [facility] Work Phone: Start: 12-21-2021 End: 12-21-2021 Tobacco smoking status ARIS Unknown if ever smoked [facility] Work Phone: Start: 1955 Sex Assigned At Female [facility] Start: 09-02-2023 Tobacco smoking stat us NHIS Never smoked tobacco (finding) [facility] Goals Date Patient Goal Desired Activity /State Functional Status Date Assessment Result Facility 12-23-2021 Functional status [place] [facility] Work Phone: 05-22-2020 LP-IR Score 71 [facility]; [facility] Work Phone: Comment on above: INSULIN RESISTANCE M ARKER <--Insulin Sensitive Insulin Resistant--> Percentile in Reference PopulationInsulin Resistance ScoreLP-IR Score Low 25th 50th 75th High <27 27 45 63 >63LP-IR Score is inaccurate if patient is non-fasting. .The LP-IR score is a laboratory developed index that has beenassociated with insulin resistance and diabetes risk and should beused as one component of a physician's clinical assessment. Test(s) 433706-KDZ-L ; 088685-VAU-L; 303581-Wuesetxkoxeab; 910174-Fsxhawduebw, Total; 778213-HVL-F (Total); 170350-Vkdzz LDL-P; 088520-EYR Size; 743482-PY-GE Scorewas developed and its performance characteristics determinedby [employer]. It has not been cleared or approved by the Foodand Drug Administration.PATIENT WAS FASTINGPERFORMED BY: BN [employer] [address] [id number] BY: [facility] [id number] [facility] [id number] 11-14-2019 LP-IR Score 70 [facility] Work Phone: Comment on above: INSULIN RESISTANCE M ARKER <--Insulin Sensitive Insulin Resistant--> Percentile in Reference PopulationInsulin Resistance ScoreLP-IR Score Low 25th 50th 75th High <27 27 45 63 >63LP-IR Score is inaccurate if patient is non-fasting. .The LP-IR score is a laboratory developed index that has beenassociated with insulin resistance and diabetes risk and should beused as one component of a physician's clinical assessment. Test(s) 899919-NOC-G ; 227991-CMS-X; 987787-Lqlecrftplhmd; 574980-Vzpuifiifxo, Total; 639154-MEI-C (Total); 967519-Kiqor LDL-P; 683408-LSN Size; 239839-CQ-HH Scorewas developed and its performance characteristics determinedby [employer] [facility]. It has not been cleared or approved by the Foodand Drug Administration.PATIENT WAS FASTINGPERFORMED BY: [address] [id number] BY: [place] [id number] [facility] [id number] 06-13-2018 LP-IR Score 67 [facility] Work Phone: Comment on above: INSULIN RESISTANCE M ARKER <--Insulin Sensitive Insulin Resistant--> Percentile in Reference PopulationInsulin Resistance ScoreLP-IR Score Low 25th 50th 75th High <27 27 45 63 >63LP-IR Score is inaccurate if patient is non-fasting. .The LP-IR score is a laboratory developed index that has beenassociated with insulin resistance and diabetes risk and should beused as one component of a physician's clinical assessment. TheLP-IR score listed above has not been cleared by the [place] Food andDrug Administration. PATIENT WAS FASTINGP ERFORMED BY: [employer] [address] [id number] BY: [facility]6370 [facility] [id number] 08-18-2017 LP-IR Score 77 [facility] Work Phone: Comment on above: INSULIN RESISTANCE M ARKER <--Insulin Sensitive Insulin Resistant--> Percentile in Reference PopulationInsulin Resistance ScoreLP-IR Score Low 25th 50th 75th High <27 27 45 63 >63LP-IR Score is inaccurate if patient is non-fasting. .The LP-IR score is a laboratory developed index that has beenassociated with insulin resistance and diabetes risk and should beused as one component of a physician's clinical assessment. TheLP-IR score listed above has not been cleared by the [place] Food andDrug Administration. send results to dr Anita moreno as well; A courtesy copy of this report has been sent [phone].PATIENT WAS FASTINGPERFORMED BY: BN [facility] [id number] [facility] [id number] BY: CB [facility] [id number] [facility] [id number] Information: FX DR. DE LA FUENTE -044 Mental Status Date Assessment Result Facility 12-23-2021 Cognitive function Voice/Name [facility] Work Phone: 12-21-2021 Cognitive function Appropriate;Cooperativ e [facility] Work Phone: Clinical Notes Note Date & Type Note Facility Evaluation note Diagnosis Onset Date Acute dehydration acute Acute UTI acute Failure of outpatient treatment acute [facility] Work Phone: evaluation note* Diagnosis Onset Date Resolution Status Acute dehydration acute Acute UTI acute Failure of outpatient treatment acute Hypokalemia acute Leukopenia acute [facility] Work Phone: evaluation note* Diagnosis Onset Date Resolution Status Leukopenia acute Acute dehydration resolved Acute UTI resolved Failure of outpatient treatment resolved Hypokalemia resolved [facility] Work Phone: evaluation note* Diagnosis Onset Date Resolution Status Admit Date CAD (coronary artery disease) acute October 11, 2024 11:06am Hyperlipidemia acute October 11, 2024 11:06am Syncope acute October 11, 2024 11:06am Hypertension chronic October 11:06am [facility] Work Phone: Instructions* Name Dates Details How to Access Health Informa tion Online using Patient Portal and [employer] Indication:Non-smoker Start:29-May-2020 Instruction Type:Patient Education Patient Instructions Indication:Non-smoker Start:29-May-2020 Instruction Type:Provider Instructions for Treatment How to Access Health Informa tion Online using Patient Portal and [employer] Indication:Non-smoker Start:20-Feb-2020 Instruction Type:Patient Education Patient Instructions Indication:Non-smoker Start:20-Feb-2020 Instruction Type:Provider Instructions for Treatment obesity counseling Indication:Diabetes mellitus type II, controlled Start:06-Dec-2019 Instruction Type:Provider Instructions for Treatment cardiovascular counseling Indication:Coronary artery disease Start:06-Dec-2019 Instruction Type:Provider Instructions for Treatment How to access health informa tion online Indication:BMI 32.0-32.9,adult Start:06-Dec-2019 Instruction Type:Patient Education How to access health informa tion online - Detail Indication:BMI 32.0-32.9,adult Start:06-Dec-2019 Instruction Type:Patient Education Patient Instructions Indication:BMI 32.0-32.9,adult Start:06-Dec-2019 Instruction Type:Provider Instructions for Treatment How to access health informa tion online Indication:Non-smoker Start:19-Nov-2019 Instruction Type:Patient Education How to access health informa tion online - Detail Indication:Non-smoker Start:19-Nov-2019 Instruction Type:Patient Education Patient Instructions Indication:Non-smoker Start:19-Nov-2019 Instruction Type:Provider Instructions for Treatment How to access health informa tion online Indication:Non-smoker Start:16-Aug-2019 Instruction Type:Patient Education How to access health informa tion online - Detail Indication:Non-smoker Start:16-Aug-2019 Instruction Type:Patient Education Patient Instructions Indication:Non-smoker Start:16-Aug-2019 Instruction Type:Provider Instructions for Treatment How to access health informa tion online Indication:Non-smoker Start:16-Apr-2019 Instruction Type:Patient Education How to access health informa tion online - Detail Indication:Non-smoker Start:16-Apr-2019 Instruction Type:Patient Education Patient Instructions Indication:Non-smoker Start:16-Apr-2019 Instruction Type:Provider Instructions for Treatment How to access health informa tion online Indication:Non-smoker Start:09-Feb-2019 Instruction Type:Patient Education How to access health informa tion online - Detail Indication:Non-smoker Start:09-Feb-2019 Instruction Type:Patient Education Patient Instructions Indication:BMI 32.0-32.9,adult Start:09-Feb-2019 Instruction Type:Provider Instructions for Treatment How to access health informa tion online Indication:Non-smoker Start:16-Aug-2018 Instruction Type:Patient Education How to access health informa tion online - Detail Indication:Non-smoker Start:16-Aug-2018 Instruction Type:Patient Education Patient Instructions Indication:Non-smoker Start:16-Aug-2018 Instruction Type:Provider Instructions for Treatment How to access health informa tion online Indication:BMI 32.0-32.9,adult Start:17-May-2018 Instruction Type:Patient Education How to access health informa tion online - Detail Indication:BMI 32.0-32.9,adult Start:17-May-2018 Instruction Type:Patient Education Patient Instructions Indication:BMI 32.0-32.9,adult Start:17-May-2018 Instruction Type:Provider Instructions for Treatment How to access health informa tion online Indication:Diabetes mellitus type II, controlled Start:21-Dec-2017 Instruction Type:Patient Education How to access health informa tion online - Detail Indication:Diabetes mellitus type II, controlled Start:21-Dec-2017 Instruction Type:Patient Education Patient Instructions Indication:Diabetes mellitus type II, controlled Start:21-Dec-2017 Instruction Type:Provider Instructions for Treatment How to access health informa tion online Indication:Diabetes mellitus type II, controlled Start:18-Aug-2017 Instruction Type:Patient Education How to access health informa tion online - Detail Indication:Diabetes mellitus type II, controlled Start:18-Aug-2017 Instruction Type:Patient Education Patient Instructions Indication:Diabetes mellitus type II, controlled Start:18-Aug-2017 Instruction Type:Provider Instructions for Treatment How to access health informa tion online Indication:Diabetes mellitus type II, controlled Start:21-Apr-2016 Instruction Type:Patient Education How to access health informa tion online - Detail Indication:Diabetes mellitus type II, controlled Start:21-Apr-2016 Instruction Type:Patient Education Patient Instructions Indication:Diabetes mellitus type II, controlled Start:21-Apr-2016 Instruction Type:Provider Instructions for Treatment How to access health informa tion online Indication:Hematuria Start:16-Feb-2016 Instruction Type:Patient Education How to access health informa tion online - Detail Indication:Hematuria Start:16-Feb-2016 Instruction Type:Patient Education Patient Instructions Indication:Hematuria Start:16-Feb-2016 Instruction Type:Provider Instructions for Treatment How to access health informa tion online Indication:Anxiety Start:09-Sep-2015 Instruction Type:Patient Education How to access health informa tion online - Detail Indication:Anxiety Start:09-Sep-2015 Instruction Type:Patient Education Patient Instructions Indication:Anxiety Start:09-Sep-2015 Instruction Type:Provider Instructions for Treatment How to access health informa tion online Indication:Anxiety Start:25-Jul-2015 Instruction Type:Patient Education How to access health informa tion online - Detail Indication:Anxiety Start:25-Jul-2015 Instruction Type:Patient Education Patient Instructions Indication:Anxiety Start:25-Jul-2015 Instruction Type:Provider Instructions for Treatment How to access health informa tion online Indication:Diabetes mellitus type II, controlled Start:03-Feb-2015 Instruction Type:Patient Education How to access health informa tion online - Detail Indication:Diabetes mellitus type II, controlled Start:03-Feb-2015 Instruction Type:Patient Education Patient Instructions Indication:Diabetes mellitus type II, controlled Start:03-Feb-2015 Instruction Type:Provider Instructions for Treatment How to access health informa tion online Indication:Contact dermatitis, contact dermatitis due to unspecified agent, unspecified contact dermatitis Start:09-Jan-2015 Instruction Type:Patient Education How to access health informa tion online - Detail Indication:Contact dermatitis, contact dermatitis due to unspecified agent, unspecified contact dermatitis Start:09-Jan-2015 Instruction Type:Patient Education Patient Instructions Indication:Contact dermatitis, contact dermatitis due to unspecified agent, unspecified contact dermatitis Start:09-Jan-2015 Instruction Type:Provider Instructions for Treatment How to access health informa tion online Indication:Diabetes mellitus type II, controlled Start:27-Aug-2014 Instruction Type:Patient Education How to access health informa tion online - Detail Indication:Diabetes mellitus type II, controlled Start:27-Aug-2014 Instruction Type:Patient Education Patient Instructions Indication:Diabetes mellitus type II, controlled Start:27-Aug-2014 Instruction Type:Provider Instructions for Treatment How to access health informa tion online - Detail Indication:Diabetes mellitus type II, controlled Start:30-Jul-2014 Instruction Type:Patient Education How to access health informa tion online Indication:Diabetes mellitus type II, controlled Start:30-Jul-2014 Instruction Type:Patient Education Patient Instructions Indication:Diabetes mellitus type II, controlled Start:30-Jul-2014 Instruction Type:Provider Instructions for Treatment Patient Instructions Indication:Diabetes mellitus type II, controlled Start:19-Dec-2012 Instruction Type:Provider Instructions for Treatment Patient Instructions Indication:Diabetes mellitus type II, controlled Start:11-Feb-2012 Instruction Type:Provider Instructions for Treatment [facility]; [facility] Work Phone: Instructions* Name Dates Details How to Access Health Informa tion Online using Patient Portal and [employer] Indication:Non-smoker Start:05-Jun-2020 Instruction Type:Patient Education Patient Instructions Indication:Non-smoker Start:05-Jun-2020 Instruction Type:Provider Instructions for Treatment How to Access Health Informa tion Online using Patient Portal and [employer] Apps Indication:Non-smoker Start:20-Feb-2020 Instruction Type:Patient Education Patient Instructions Indication:Non-smoker Start:20-Feb-2020 Instruction Type:Provider Instructions for Treatment obesity counseling Indication:Diabetes mellitus type II, controlled Start:06-Dec-2019 Instruction Type:Provider Instructions for Treatment cardiovascular counseling Indication:Coronary artery disease Start:06-Dec-2019 Instruction Type:Provider Instructions for Treatment How to access health informa tion online Indication:BMI 32.0-32.9,adult Start:06-Dec-2019 Instruction Type:Patient Education How to access health informa tion online - Detail Indication:BMI 32.0-32.9,adult Start:06-Dec-2019 Instruction Type:Patient Education Patient Instructions Indication:BMI 32.0-32.9,adult Start:06-Dec-2019 Instruction Type:Provider Instructions for Treatment How to access health informa tion online Indication:Non-smoker Start:19-Nov-2019 Instruction Type:Patient Education How to access health informa tion online - Detail Indication:Non-smoker Start:19-Nov-2019 Instruction Type:Patient Education Patient Instructions Indication:Non-smoker Start:19-Nov-2019 Instruction Type:Provider Instructions for Treatment How to access health informa tion online Indication:Non-smoker Start:16-Aug-2019 Instruction Type:Patient Education How to access health informa tion online - Detail Indication:Non-smoker Start:16-Aug-2019 Instruction Type:Patient Education Patient Instructions Indication:Non-smoker Start:16-Aug-2019 Instruction Type:Provider Instructions for Treatment How to access health informa tion online Indication:Non-smoker Start:16-Apr-2019 Instruction Type:Patient Education How to access health informa tion online - Detail Indication:Non-smoker Start:16-Apr-2019 Instruction Type:Patient Education Patient Instructions Indication:Non-smoker Start:16-Apr-2019 Instruction Type:Provider Instructions for Treatment How to access health informa tion online Indication:Non-smoker Start:09-Feb-2019 Instruction Type:Patient Education How to access health informa tion online - Detail Indication:Non-smoker Start:09-Feb-2019 Instruction Type:Patient Education Patient Instructions Indication:BMI 32.0-32.9,adult Start:09-Feb-2019 Instruction Type:Provider Instructions for Treatment How to access health informa tion online Indication:Non-smoker Start:16-Aug-2018 Instruction Type:Patient Education How to access health informa tion online - Detail Indication:Non-smoker Start:16-Aug-2018 Instruction Type:Patient Education Patient Instructions Indication:Non-smoker Start:16-Aug-2018 Instruction Type:Provider Instructions for Treatment How to access health informa tion online Indication:BMI 32.0-32.9,adult Start:17-May-2018 Instruction Type:Patient Education How to access health informa tion online - Detail Indication:BMI 32.0-32.9,adult Start:17-May-2018 Instruction Type:Patient Education Patient Instructions Indication:BMI 32.0-32.9,adult Start:17-May-2018 Instruction Type:Provider Instructions for Treatment How to access health informa tion online Indication:Diabetes mellitus type II, controlled Start:21-Dec-2017 Instruction Type:Patient Education How to access health informa tion online - Detail Indication:Diabetes mellitus type II, controlled Start:21-Dec-2017 Instruction Type:Patient Education Patient Instructions Indication:Diabetes mellitus type II, controlled Start:21-Dec-2017 Instruction Type:Provider Instructions for Treatment How to access health informa tion online Indication:Diabetes mellitus type II, controlled Start:18-Aug-2017 Instruction Type:Patient Education How to access health informa tion online - Detail Indication:Diabetes mellitus type II, controlled Start:18-Aug-2017 Instruction Type:Patient Education Patient Instructions Indication:Diabetes mellitus type II, controlled Start:18-Aug-2017 Instruction Type:Provider Instructions for Treatment How to access health informa tion online Indication:Diabetes mellitus type II, controlled Start:21-Apr-2016 Instruction Type:Patient Education How to access health informa tion online - Detail Indication:Diabetes mellitus type II, controlled Start:21-Apr-2016 Instruction Type:Patient Education Patient Instructions Indication:Diabetes mellitus type II, controlled Start:21-Apr-2016 Instruction Type:Provider Instructions for Treatment How to access health informa tion online Indication:Hematuria Start:16-Feb-2016 Instruction Type:Patient Education How to access health informa tion online - Detail Indication:Hematuria Start:16-Feb-2016 Instruction Type:Patient Education Patient Instructions Indication:Hematuria Start:16-Feb-2016 Instruction Type:Provider Instructions for Treatment How to access health informa tion online Indication:Anxiety Start:09-Sep-2015 Instruction Type:Patient Education How to access health informa tion online - Detail Indication:Anxiety Start:09-Sep-2015 Instruction Type:Patient Education Patient Instructions Indication:Anxiety Start:09-Sep-2015 Instruction Type:Provider Instructions for Treatment How to access health informa tion online Indication:Anxiety Start:25-Jul-2015 Instruction Type:Patient Education How to access health informa tion online - Detail Indication:Anxiety Start:25-Jul-2015 Instruction Type:Patient Education Patient Instructions Indication:Anxiety Start:25-Jul-2015 Instruction Type:Provider Instructions for Treatment How to access health informa tion online Indication:Diabetes mellitus type II, controlled Start:03-Feb-2015 Instruction Type:Patient Education How to access health informa tion online - Detail Indication:Diabetes mellitus type II, controlled Start:03-Feb-2015 Instruction Type:Patient Education Patient Instructions Indication:Diabetes mellitus type II, controlled Start:03-Feb-2015 Instruction Type:Provider Instructions for Treatment How to access health informa tion online Indication:Contact dermatitis, contact dermatitis due to unspecified agent, unspecified contact dermatitis Start:09-Jan-2015 Instruction Type:Patient Education How to access health informa tion online - Detail Indication:Contact dermatitis, contact dermatitis due to unspecified agent, unspecified contact dermatitis Start:09-Jan-2015 Instruction Type:Patient Education Patient Instructions Indication:Contact dermatitis, contact dermatitis due to unspecified agent, unspecified contact dermatitis Start:09-Jan-2015 Instruction Type:Provider Instructions for Treatment How to access health informa tion online Indication:Diabetes mellitus type II, controlled Start:27-Aug-2014 Instruction Type:Patient Education How to access health informa tion online - Detail Indication:Diabetes mellitus type II, controlled Start:27-Aug-2014 Instruction Type:Patient Education Patient Instructions Indication:Diabetes mellitus type II, controlled Start:27-Aug-2014 Instruction Type:Provider Instructions for Treatment How to access health informa tion online - Detail Indication:Diabetes mellitus type II, controlled Start:30-Jul-2014 Instruction Type:Patient Education How to access health informa tion online Indication:Diabetes mellitus type II, controlled Start:30-Jul-2014 Instruction Type:Patient Education Patient Instructions Indication:Diabetes mellitus type II, controlled Start:30-Jul-2014 Instruction Type:Provider Instructions for Treatment Patient Instructions Indication:Diabetes mellitus type II, controlled Start:19-Dec-2012 Instruction Type:Provider Instructions for Treatment Patient Instructions Indication:Diabetes mellitus type II, controlled Start:11-Feb-2012 Instruction Type:Provider Instructions for Treatment [facility]; [facility] Work Phone: Instructions* Name Dates Details How to Access Health Informa tion Online using Patient Portal and [employer] Indication:Non-smoker Start:05-Jun-2020 Instruction Type:Patient Education Patient Instructions Indication:Non-smoker Start:05-Jun-2020 Instruction Type:Provider Instructions for Treatment How to Access Health Informa tion Online using Patient Portal and [employer] Indication:Non-smoker Start:20-Feb-2020 Instruction Type:Patient Education Patient Instructions Indication:Non-smoker Start:20-Feb-2020 Instruction Type:Provider Instructions for Treatment obesity counseling Indication:Diabetes mellitus type II, controlled Start:06-Dec-2019 Instruction Type:Provider Instructions for Treatment cardiovascular counseling Indication:Coronary artery disease Start:06-Dec-2019 Instruction Type:Provider Instructions for Treatment How to access health informa tion online Indication:BMI 32.0-32.9,adult Start:06-Dec-2019 Instruction Type:Patient Education How to access health informa tion online - Detail Indication:BMI 32.0-32.9,adult Start:06-Dec-2019 Instruction Type:Patient Education Patient Instructions Indication:BMI 32.0-32.9,adult Start:06-Dec-2019 Instruction Type:Provider Instructions for Treatment How to access health informa tion online Indication:Non-smoker Start:19-Nov-2019 Instruction Type:Patient Education How to access health informa tion online - Detail Indication:Non-smoker Start:19-Nov-2019 Instruction Type:Patient Education Patient Instructions Indication:Non-smoker Start:19-Nov-2019 Instruction Type:Provider Instructions for Treatment How to access health informa tion online Indication:Non-smoker Start:16-Aug-2019 Instruction Type:Patient Education How to access health informa tion online - Detail Indication:Non-smoker Start:16-Aug-2019 Instruction Type:Patient Education Patient Instructions Indication:Non-smoker Start:16-Aug-2019 Instruction Type:Provider Instructions for Treatment How to access health informa tion online Indication:Non-smoker Start:16-Apr-2019 Instruction Type:Patient Education How to access health informa tion online - Detail Indication:Non-smoker Start:16-Apr-2019 Instruction Type:Patient Education Patient Instructions Indication:Non-smoker Start:16-Apr-2019 Instruction Type:Provider Instructions for Treatment How to access health informa tion online Indication:Non-smoker Start:09-Feb-2019 Instruction Type:Patient Education How to access health informa tion online - Detail Indication:Non-smoker Start:09-Feb-2019 Instruction Type:Patient Education Patient Instructions Indication:BMI 32.0-32.9,adult Start:09-Feb-2019 Instruction Type:Provider Instructions for Treatment How to access health informa tion online Indication:Non-smoker Start:16-Aug-2018 Instruction Type:Patient Education How to access health informa tion online - Detail Indication:Non-smoker Start:16-Aug-2018 Instruction Type:Patient Education Patient Instructions Indication:Non-smoker Start:16-Aug-2018 Instruction Type:Provider Instructions for Treatment How to access health informa tion online Indication:BMI 32.0-32.9,adult Start:17-May-2018 Instruction Type:Patient Education How to access health informa tion online - Detail Indication:BMI 32.0-32.9,adult Start:17-May-2018 Instruction Type:Patient Education Patient Instructions Indication:BMI 32.0-32.9,adult Start:17-May-2018 Instruction Type:Provider Instructions for Treatment How to access health informa tion online Indication:Diabetes mellitus type II, controlled Start:21-Dec-2017 Instruction Type:Patient Education How to access health informa tion online - Detail Indication:Diabetes mellitus type II, controlled Start:21-Dec-2017 Instruction Type:Patient Education Patient Instructions Indication:Diabetes mellitus type II, controlled Start:21-Dec-2017 Instruction Type:Provider Instructions for Treatment How to access health informa tion online Indication:Diabetes mellitus type II, controlled Start:18-Aug-2017 Instruction Type:Patient Education How to access health informa tion online - Detail Indication:Diabetes mellitus type II, controlled Start:18-Aug-2017 Instruction Type:Patient Education Patient Instructions Indication:Diabetes mellitus type II, controlled Start:18-Aug-2017 Instruction Type:Provider Instructions for Treatment How to access health informa tion online Indication:Diabetes mellitus type II, controlled Start:21-Apr-2016 Instruction Type:Patient Education How to access health informa tion online - Detail Indication:Diabetes mellitus type II, controlled Start:21-Apr-2016 Instruction Type:Patient Education Patient Instructions Indication:Diabetes mellitus type II, controlled Start:21-Apr-2016 Instruction Type:Provider Instructions for Treatment How to access health informa tion online Indication:Hematuria Start:16-Feb-2016 Instruction Type:Patient Education How to access health informa tion online - Detail Indication:Hematuria Start:16-Feb-2016 Instruction Type:Patient Education Patient Instructions Indication:Hematuria Start:16-Feb-2016 Instruction Type:Provider Instructions for Treatment How to access health informa tion online Indication:Anxiety Start:09-Sep-2015 Instruction Type:Patient Education How to access health informa tion online - Detail Indication:Anxiety Start:09-Sep-2015 Instruction Type:Patient Education Patient Instructions Indication:Anxiety Start:09-Sep-2015 Instruction Type:Provider Instructions for Treatment How to access health informa tion online Indication:Anxiety Start:25-Jul-2015 Instruction Type:Patient Education How to access health informa tion online - Detail Indication:Anxiety Start:25-Jul-2015 Instruction Type:Patient Education Patient Instructions Indication:Anxiety Start:25-Jul-2015 Instruction Type:Provider Instructions for Treatment How to access health informa tion online Indication:Diabetes mellitus type II, controlled Start:03-Feb-2015 Instruction Type:Patient Education How to access health informa tion online - Detail Indication:Diabetes mellitus type II, controlled Start:03-Feb-2015 Instruction Type:Patient Education Patient Instructions Indication:Diabetes mellitus type II, controlled Start:03-Feb-2015 Instruction Type:Provider Instructions for Treatment How to access health informa tion online Indication:Contact dermatitis, contact dermatitis due to unspecified agent, unspecified contact dermatitis Start:09-Jan-2015 Instruction Type:Patient Education How to access health informa tion online - Detail Indication:Contact dermatitis, contact dermatitis due to unspecified agent, unspecified contact dermatitis Start:09-Jan-2015 Instruction Type:Patient Education Patient Instructions Indication:Contact dermatitis, contact dermatitis due to unspecified agent, unspecified contact dermatitis Start:09-Jan-2015 Instruction Type:Provider Instructions for Treatment How to access health informa tion online Indication:Diabetes mellitus type II, controlled Start:27-Aug-2014 Instruction Type:Patient Education How to access health informa tion online - Detail Indication:Diabetes mellitus type II, controlled Start:27-Aug-2014 Instruction Type:Patient Education Patient Instructions Indication:Diabetes mellitus type II, controlled Start:27-Aug-2014 Instruction Type:Provider Instructions for Treatment How to access health informa tion online - Detail Indication:Diabetes mellitus type II, controlled Start:30-Jul-2014 Instruction Type:Patient Education How to access health informa tion online Indication:Diabetes mellitus type II, controlled Start:30-Jul-2014 Instruction Type:Patient Education Patient Instructions Indication:Diabetes mellitus type II, controlled Start:30-Jul-2014 Instruction Type:Provider Instructions for Treatment Patient Instructions Indication:Diabetes mellitus type II, controlled Start:19-Dec-2012 Instruction Type:Provider Instructions for Treatment Patient Instructions Indication:Diabetes mellitus type II, controlled Start:11-Feb-2012 Instruction Type:Provider Instructions for Treatment [facility]; [facility] Work Phone: Instructions* Name Dates Details How to Access Health Informa tion Online using Patient Portal and [employer] Indication:Non-smoker Start:05-Jun-2020 Instruction Type:Patient Education Patient Instructions Indication:Non-smoker Start:05-Jun-2020 Instruction Type:Provider Instructions for Treatment How to Access Health Informa tion Online using Patient Portal and [employer] Indication:Non-smoker Start:20-Feb-2020 Instruction Type:Patient Education Patient Instructions Indication:Non-smoker Start:20-Feb-2020 Instruction Type:Provider Instructions for Treatment obesity counseling Indication:Diabetes mellitus type II, controlled Start:06-Dec-2019 Instruction Type:Provider Instructions for Treatment cardiovascular counseling Indication:Coronary artery disease Start:06-Dec-2019 Instruction Type:Provider Instructions for Treatment How to access health informa tion online Indication:BMI 32.0-32.9,adult Start:06-Dec-2019 Instruction Type:Patient Education How to access health informa tion online - Detail Indication:BMI 32.0-32.9,adult Start:06-Dec-2019 Instruction Type:Patient Education Patient Instructions Indication:BMI 32.0-32.9,adult Start:06-Dec-2019 Instruction Type:Provider Instructions for Treatment How to access health informa tion online Indication:Non-smoker Start:19-Nov-2019 Instruction Type:Patient Education How to access health informa tion online - Detail Indication:Non-smoker Start:19-Nov-2019 Instruction Type:Patient Education Patient Instructions Indication:Non-smoker Start:19-Nov-2019 Instruction Type:Provider Instructions for Treatment How to access health informa tion online Indication:Non-smoker Start:16-Aug-2019 Instruction Type:Patient Education How to access health informa tion online - Detail Indication:Non-smoker Start:16-Aug-2019 Instruction Type:Patient Education Patient Instructions Indication:Non-smoker Start:16-Aug-2019 Instruction Type:Provider Instructions for Treatment How to access health informa tion online Indication:Non-smoker Start:16-Apr-2019 Instruction Type:Patient Education How to access health informa tion online - Detail Indication:Non-smoker Start:16-Apr-2019 Instruction Type:Patient Education Patient Instructions Indication:Non-smoker Start:16-Apr-2019 Instruction Type:Provider Instructions for Treatment How to access health informa tion online Indication:Non-smoker Start:09-Feb-2019 Instruction Type:Patient Education How to access health informa tion online - Detail Indication:Non-smoker Start:09-Feb-2019 Instruction Type:Patient Education Patient Instructions Indication:BMI 32.0-32.9,adult Start:09-Feb-2019 Instruction Type:Provider Instructions for Treatment How to access health informa tion online Indication:Non-smoker Start:16-Aug-2018 Instruction Type:Patient Education How to access health informa tion online - Detail Indication:Non-smoker Start:16-Aug-2018 Instruction Type:Patient Education Patient Instructions Indication:Non-smoker Start:16-Aug-2018 Instruction Type:Provider Instructions for Treatment How to access health informa tion online Indication:BMI 32.0-32.9,adult Start:17-May-2018 Instruction Type:Patient Education How to access health informa tion online - Detail Indication:BMI 32.0-32.9,adult Start:17-May-2018 Instruction Type:Patient Education Patient Instructions Indication:BMI 32.0-32.9,adult Start:17-May-2018 Instruction Type:Provider Instructions for Treatment How to access health informa tion online Indication:Diabetes mellitus type II, controlled Start:21-Dec-2017 Instruction Type:Patient Education How to access health informa tion online - Detail Indication:Diabetes mellitus type II, controlled Start:21-Dec-2017 Instruction Type:Patient Education Patient Instructions Indication:Diabetes mellitus type II, controlled Start:21-Dec-2017 Instruction Type:Provider Instructions for Treatment How to access health informa tion online Indication:Diabetes mellitus type II, controlled Start:18-Aug-2017 Instruction Type:Patient Education How to access health informa tion online - Detail Indication:Diabetes mellitus type II, controlled Start:18-Aug-2017 Instruction Type:Patient Education Patient Instructions Indication:Diabetes mellitus type II, controlled Start:18-Aug-2017 Instruction Type:Provider Instructions for Treatment How to access health informa tion online Indication:Diabetes mellitus type II, controlled Start:21-Apr-2016 Instruction Type:Patient Education How to access health informa tion online - Detail Indication:Diabetes mellitus type II, controlled Start:21-Apr-2016 Instruction Type:Patient Education Patient Instructions Indication:Diabetes mellitus type II, controlled Start:21-Apr-2016 Instruction Type:Provider Instructions for Treatment How to access health informa tion online Indication:Hematuria Start:16-Feb-2016 Instruction Type:Patient Education How to access health informa tion online - Detail Indication:Hematuria Start:16-Feb-2016 Instruction Type:Patient Education Patient Instructions Indication:Hematuria Start:16-Feb-2016 Instruction Type:Provider Instructions for Treatment How to access health informa tion online Indication:Anxiety Start:09-Sep-2015 Instruction Type:Patient Education How to access health informa tion online - Detail Indication:Anxiety Start:09-Sep-2015 Instruction Type:Patient Education Patient Instructions Indication:Anxiety Start:09-Sep-2015 Instruction Type:Provider Instructions for Treatment How to access health informa tion online Indication:Anxiety Start:25-Jul-2015 Instruction Type:Patient Education How to access health informa tion online - Detail Indication:Anxiety Start:25-Jul-2015 Instruction Type:Patient Education Patient Instructions Indication:Anxiety Start:25-Jul-2015 Instruction Type:Provider Instructions for Treatment How to access health informa tion online Indication:Diabetes mellitus type II, controlled Start:03-Feb-2015 Instruction Type:Patient Education How to access health informa tion online - Detail Indication:Diabetes mellitus type II, controlled Start:03-Feb-2015 Instruction Type:Patient Education Patient Instructions Indication:Diabetes mellitus type II, controlled Start:03-Feb-2015 Instruction Type:Provider Instructions for Treatment How to access health informa tion online Indication:Contact dermatitis, contact dermatitis due to unspecified agent, unspecified contact dermatitis Start:09-Jan-2015 Instruction Type:Patient Education How to access health informa tion online - Detail Indication:Contact dermatitis, contact dermatitis due to unspecified agent, unspecified contact dermatitis Start:09-Jan-2015 Instruction Type:Patient Education Patient Instructions Indication:Contact dermatitis, contact dermatitis due to unspecified agent, unspecified contact dermatitis Start:09-Jan-2015 Instruction Type:Provider Instructions for Treatment How to access health informa tion online Indication:Diabetes mellitus type II, controlled Start:27-Aug-2014 Instruction Type:Patient Education How to access health informa tion online - Detail Indication:Diabetes mellitus type II, controlled Start:27-Aug-2014 Instruction Type:Patient Education Patient Instructions Indication:Diabetes mellitus type II, controlled Start:27-Aug-2014 Instruction Type:Provider Instructions for Treatment How to access health informa tion online - Detail Indication:Diabetes mellitus type II, controlled Start:30-Jul-2014 Instruction Type:Patient Education How to access health informa tion online Indication:Diabetes mellitus type II, controlled Start:30-Jul-2014 Instruction Type:Patient Education Patient Instructions Indication:Diabetes mellitus type II, controlled Start:30-Jul-2014 Instruction Type:Provider Instructions for Treatment Patient Instructions Indication:Diabetes mellitus type II, controlled Start:19-Dec-2012 Instruction Type:Provider Instructions for Treatment Patient Instructions Indication:Diabetes mellitus type II, controlled Start:11-Feb-2012 Instruction Type:Provider Instructions for Treatment [facility]; [facility] Work Phone: Instructions* Name Dates Details Patient Instructions Indication:BMI 32.0-32.9,adult Start:08-Jan-2021 Instruction Type:Provider Instructions for Treatment How to Access Health Informa tion Online using Patient Portal and [employer] Apps Indication:BMI 32.0-32.9,adult Start:08-Jan-2021 Instruction Type:Patient Education Patient Instructions Indication:BMI 32.0-32.9,adult Start:08-Sep-2020 Instruction Type:Provider Instructions for Treatment How to Access Health Informa tion Online using Patient Portal and [employer] Apps Indication:BMI 32.0-32.9,adult Start:08-Sep-2020 Instruction Type:Patient Education How to Access Health Informa tion Online using Patient Portal and [employer] Apps Indication:Non-smoker Start:05-Jun-2020 Instruction Type:Patient Education Patient Instructions Indication:Non-smoker Start:05-Jun-2020 Instruction Type:Provider Instructions for Treatment How to Access Health Informa tion Online using Patient Portal and [employer] Apps Indication:Non-smoker Start:20-Feb-2020 Instruction Type:Patient Education Patient Instructions Indication:Non-smoker Start:20-Feb-2020 Instruction Type:Provider Instructions for Treatment obesity counseling Indication:Diabetes mellitus type II, controlled Start:06-Dec-2019 Instruction Type:Provider Instructions for Treatment cardiovascular counseling Indication:Coronary artery disease Start:06-Dec-2019 Instruction Type:Provider Instructions for Treatment How to access health informa tion online Indication:BMI 32.0-32.9,adult Start:06-Dec-2019 Instruction Type:Patient Education How to access health informa tion online - Detail Indication:BMI 32.0-32.9,adult Start:06-Dec-2019 Instruction Type:Patient Education Patient Instructions Indication:BMI 32.0-32.9,adult Start:06-Dec-2019 Instruction Type:Provider Instructions for Treatment How to access health informa tion online Indication:Non-smoker Start:19-Nov-2019 Instruction Type:Patient Education How to access health informa tion online - Detail Indication:Non-smoker Start:19-Nov-2019 Instruction Type:Patient Education Patient Instructions Indication:Non-smoker Start:19-Nov-2019 Instruction Type:Provider Instructions for Treatment How to access health informa tion online Indication:Non-smoker Start:16-Aug-2019 Instruction Type:Patient Education How to access health informa tion online - Detail Indication:Non-smoker Start:16-Aug-2019 Instruction Type:Patient Education Patient Instructions Indication:Non-smoker Start:16-Aug-2019 Instruction Type:Provider Instructions for Treatment How to access health informa tion online Indication:Non-smoker Start:16-Apr-2019 Instruction Type:Patient Education How to access health informa tion online - Detail Indication:Non-smoker Start:16-Apr-2019 Instruction Type:Patient Education Patient Instructions Indication:Non-smoker Start:16-Apr-2019 Instruction Type:Provider Instructions for Treatment How to access health informa tion online Indication:Non-smoker Start:09-Feb-2019 Instruction Type:Patient Education How to access health informa tion online - Detail Indication:Non-smoker Start:09-Feb-2019 Instruction Type:Patient Education Patient Instructions Indication:BMI 32.0-32.9,adult Start:09-Feb-2019 Instruction Type:Provider Instructions for Treatment How to access health informa tion online Indication:Non-smoker Start:16-Aug-2018 Instruction Type:Patient Education How to access health informa tion online - Detail Indication:Non-smoker Start:16-Aug-2018 Instruction Type:Patient Education Patient Instructions Indication:Non-smoker Start:16-Aug-2018 Instruction Type:Provider Instructions for Treatment How to access health informa tion online Indication:BMI 32.0-32.9,adult Start:17-May-2018 Instruction Type:Patient Education How to access health informa tion online - Detail Indication:BMI 32.0-32.9,adult Start:17-May-2018 Instruction Type:Patient Education Patient Instructions Indication:BMI 32.0-32.9,adult Start:17-May-2018 Instruction Type:Provider Instructions for Treatment How to access health informa tion online Indication:Diabetes mellitus type II, controlled Start:21-Dec-2017 Instruction Type:Patient Education How to access health informa tion online - Detail Indication:Diabetes mellitus type II, controlled Start:21-Dec-2017 Instruction Type:Patient Education Patient Instructions Indication:Diabetes mellitus type II, controlled Start:21-Dec-2017 Instruction Type:Provider Instructions for Treatment How to access health informa tion online Indication:Diabetes mellitus type II, controlled Start:18-Aug-2017 Instruction Type:Patient Education How to access health informa tion online - Detail Indication:Diabetes mellitus type II, controlled Start:18-Aug-2017 Instruction Type:Patient Education Patient Instructions Indication:Diabetes mellitus type II, controlled Start:18-Aug-2017 Instruction Type:Provider Instructions for Treatment How to access health informa tion online Indication:Diabetes mellitus type II, controlled Start:21-Apr-2016 Instruction Type:Patient Education How to access health informa tion online - Detail Indication:Diabetes mellitus type II, controlled Start:21-Apr-2016 Instruction Type:Patient Education Patient Instructions Indication:Diabetes mellitus type II, controlled Start:21-Apr-2016 Instruction Type:Provider Instructions for Treatment How to access health informa tion online Indication:Hematuria Start:16-Feb-2016 Instruction Type:Patient Education How to access health informa tion online - Detail Indication:Hematuria Start:16-Feb-2016 Instruction Type:Patient Education Patient Instructions Indication:Hematuria Start:16-Feb-2016 Instruction Type:Provider Instructions for Treatment How to access health informa tion online Indication:Anxiety Start:09-Sep-2015 Instruction Type:Patient Education How to access health informa tion online - Detail Indication:Anxiety Start:09-Sep-2015 Instruction Type:Patient Education Patient Instructions Indication:Anxiety Start:09-Sep-2015 Instruction Type:Provider Instructions for Treatment How to access health informa tion online Indication:Anxiety Start:25-Jul-2015 Instruction Type:Patient Education How to access health informa tion online - Detail Indication:Anxiety Start:25-Jul-2015 Instruction Type:Patient Education Patient Instructions Indication:Anxiety Start:25-Jul-2015 Instruction Type:Provider Instructions for Treatment How to access health informa tion online Indication:Diabetes mellitus type II, controlled Start:03-Feb-2015 Instruction Type:Patient Education How to access health informa tion online - Detail Indication:Diabetes mellitus type II, controlled Start:03-Feb-2015 Instruction Type:Patient Education Patient Instructions Indication:Diabetes mellitus type II, controlled Start:03-Feb-2015 Instruction Type:Provider Instructions for Treatment How to access health informa tion online Indication:Contact dermatitis, contact dermatitis due to unspecified agent, unspecified contact dermatitis Start:09-Jan-2015 Instruction Type:Patient Education How to access health informa tion online - Detail Indication:Contact dermatitis, contact dermatitis due to unspecified agent, unspecified contact dermatitis Start:09-Jan-2015 Instruction Type:Patient Education Patient Instructions Indication:Contact dermatitis, contact dermatitis due to unspecified agent, unspecified contact dermatitis Start:09-Jan-2015 Instruction Type:Provider Instructions for Treatment How to access health informa tion online Indication:Diabetes mellitus type II, controlled Start:27-Aug-2014 Instruction Type:Patient Education How to access health informa tion online - Detail Indication:Diabetes mellitus type II, controlled Start:27-Aug-2014 Instruction Type:Patient Education Patient Instructions Indication:Diabetes mellitus type II, controlled Start:27-Aug-2014 Instruction Type:Provider Instructions for Treatment How to access health informa tion online - Detail Indication:Diabetes mellitus type II, controlled Start:30-Jul-2014 Instruction Type:Patient Education How to access health informa tion online Indication:Diabetes mellitus type II, controlled Start:30-Jul-2014 Instruction Type:Patient Education Patient Instructions Indication:Diabetes mellitus type II, controlled Start:30-Jul-2014 Instruction Type:Provider Instructions for Treatment Patient Instructions Indication:Diabetes mellitus type II, controlled Start:19-Dec-2012 Instruction Type:Provider Instructions for Treatment Patient Instructions Indication:Diabetes mellitus type II, controlled Start:11-Feb-2012 Instruction Type:Provider Instructions for Treatment [facility]; [facility] Work Phone: Instructions* Name Dates Details Patient Instructions Indication:BMI 32.0-32.9,adult Start:09-Apr-2021 Instruction Type:Provider Instructions for Treatment How to Access Health Informa tion Online using Patient Portal and [employer]rd [employer] Apps Indication:BMI 32.0-32.9,adult Start:09-Apr-2021 Instruction Type:Patient Education Patient Instructions Indication:BMI 32.0-32.9,adult Start:08-Jan-2021 Instruction Type:Provider Instructions for Treatment How to Access Health Informa tion Online using Patient Portal and [employer]rd [employer] Apps Indication:BMI 32.0-32.9,adult Start:08-Jan-2021 Instruction Type:Patient Education Patient Instructions Indication:BMI 32.0-32.9,adult Start:08-Sep-2020 Instruction Type:Provider Instructions for Treatment How to Access Health Informa tion Online using Patient Portal and [employer]rd [employer] Apps Indication:BMI 32.0-32.9,adult Start:08-Sep-2020 Instruction Type:Patient Education How to Access Health Informa tion Online using Patient Portal and [employer]rd [employer] Apps Indication:Non-smoker Start:05-Jun-2020 Instruction Type:Patient Education Patient Instructions Indication:Non-smoker Start:05-Jun-2020 Instruction Type:Provider Instructions for Treatment How to Access Health Informa tion Online using Patient Portal and [employer]rd [employer] Apps Indication:Non-smoker Start:20-Feb-2020 Instruction Type:Patient Education Patient Instructions Indication:Non-smoker Start:20-Feb-2020 Instruction Type:Provider Instructions for Treatment obesity counseling Indication:Diabetes mellitus type II, controlled Start:06-Dec-2019 Instruction Type:Provider Instructions for Treatment cardiovascular counseling Indication:Coronary artery disease Start:06-Dec-2019 Instruction Type:Provider Instructions for Treatment How to access health informa tion online Indication:BMI 32.0-32.9,adult Start:06-Dec-2019 Instruction Type:Patient Education How to access health informa tion online - Detail Indication:BMI 32.0-32.9,adult Start:06-Dec-2019 Instruction Type:Patient Education Patient Instructions Indication:BMI 32.0-32.9,adult Start:06-Dec-2019 Instruction Type:Provider Instructions for Treatment How to access health informa tion online Indication:Non-smoker Start:19-Nov-2019 Instruction Type:Patient Education How to access health informa tion online - Detail Indication:Non-smoker Start:19-Nov-2019 Instruction Type:Patient Education Patient Instructions Indication:Non-smoker Start:19-Nov-2019 Instruction Type:Provider Instructions for Treatment How to access health informa tion online Indication:Non-smoker Start:16-Aug-2019 Instruction Type:Patient Education How to access health informa tion online - Detail Indication:Non-smoker Start:16-Aug-2019 Instruction Type:Patient Education Patient Instructions Indication:Non-smoker Start:16-Aug-2019 Instruction Type:Provider Instructions for Treatment How to access health informa tion online Indication:Non-smoker Start:16-Apr-2019 Instruction Type:Patient Education How to access health informa tion online - Detail Indication:Non-smoker Start:16-Apr-2019 Instruction Type:Patient Education Patient Instructions Indication:Non-smoker Start:16-Apr-2019 Instruction Type:Provider Instructions for Treatment How to access health informa tion online Indication:Non-smoker Start:09-Feb-2019 Instruction Type:Patient Education How to access health informa tion online - Detail Indication:Non-smoker Start:09-Feb-2019 Instruction Type:Patient Education Patient Instructions Indication:BMI 32.0-32.9,adult Start:09-Feb-2019 Instruction Type:Provider Instructions for Treatment How to access health informa tion online Indication:Non-smoker Start:16-Aug-2018 Instruction Type:Patient Education How to access health informa tion online - Detail Indication:Non-smoker Start:16-Aug-2018 Instruction Type:Patient Education Patient Instructions Indication:Non-smoker Start:16-Aug-2018 Instruction Type:Provider Instructions for Treatment How to access health informa tion online Indication:BMI 32.0-32.9,adult Start:17-May-2018 Instruction Type:Patient Education How to access health informa tion online - Detail Indication:BMI 32.0-32.9,adult Start:17-May-2018 Instruction Type:Patient Education Patient Instructions Indication:BMI 32.0-32.9,adult Start:17-May-2018 Instruction Type:Provider Instructions for Treatment How to access health informa tion online Indication:Diabetes mellitus type II, controlled Start:21-Dec-2017 Instruction Type:Patient Education How to access health informa tion online - Detail Indication:Diabetes mellitus type II, controlled Start:21-Dec-2017 Instruction Type:Patient Education Patient Instructions Indication:Diabetes mellitus type II, controlled Start:21-Dec-2017 Instruction Type:Provider Instructions for Treatment How to access health informa tion online Indication:Diabetes mellitus type II, controlled Start:18-Aug-2017 Instruction Type:Patient Education How to access health informa tion online - Detail Indication:Diabetes mellitus type II, controlled Start:18-Aug-2017 Instruction Type:Patient Education Patient Instructions Indication:Diabetes mellitus type II, controlled Start:18-Aug-2017 Instruction Type:Provider Instructions for Treatment How to access health informa tion online Indication:Diabetes mellitus type II, controlled Start:21-Apr-2016 Instruction Type:Patient Education How to access health informa tion online - Detail Indication:Diabetes mellitus type II, controlled Start:21-Apr-2016 Instruction Type:Patient Education Patient Instructions Indication:Diabetes mellitus type II, controlled Start:21-Apr-2016 Instruction Type:Provider Instructions for Treatment How to access health informa tion online Indication:Hematuria Start:16-Feb-2016 Instruction Type:Patient Education How to access health informa tion online - Detail Indication:Hematuria Start:16-Feb-2016 Instruction Type:Patient Education Patient Instructions Indication:Hematuria Start:16-Feb-2016 Instruction Type:Provider Instructions for Treatment How to access health informa tion online Indication:Anxiety Start:09-Sep-2015 Instruction Type:Patient Education How to access health informa tion online - Detail Indication:Anxiety Start:09-Sep-2015 Instruction Type:Patient Education Patient Instructions Indication:Anxiety Start:09-Sep-2015 Instruction Type:Provider Instructions for Treatment How to access health informa tion online Indication:Anxiety Start:25-Jul-2015 Instruction Type:Patient Education How to access health informa tion online - Detail Indication:Anxiety Start:25-Jul-2015 Instruction Type:Patient Education Patient Instructions Indication:Anxiety Start:25-Jul-2015 Instruction Type:Provider Instructions for Treatment How to access health informa tion online Indication:Diabetes mellitus type II, controlled Start:03-Feb-2015 Instruction Type:Patient Education How to access health informa tion online - Detail Indication:Diabetes mellitus type II, controlled Start:03-Feb-2015 Instruction Type:Patient Education Patient Instructions Indication:Diabetes mellitus type II, controlled Start:03-Feb-2015 Instruction Type:Provider Instructions for Treatment How to access health informa tion online Indication:Contact dermatitis, contact dermatitis due to unspecified agent, unspecified contact dermatitis Start:09-Jan-2015 Instruction Type:Patient Education How to access health informa tion online - Detail Indication:Contact dermatitis, contact dermatitis due to unspecified agent, unspecified contact dermatitis Start:09-Jan-2015 Instruction Type:Patient Education Patient Instructions Indication:Contact dermatitis, contact dermatitis due to unspecified agent, unspecified contact dermatitis Start:09-Jan-2015 Instruction Type:Provider Instructions for Treatment How to access health informa tion online Indication:Diabetes mellitus type II, controlled Start:27-Aug-2014 Instruction Type:Patient Education How to access health informa tion online - Detail Indication:Diabetes mellitus type II, controlled Start:27-Aug-2014 Instruction Type:Patient Education Patient Instructions Indication:Diabetes mellitus type II, controlled Start:27-Aug-2014 Instruction Type:Provider Instructions for Treatment How to access health informa tion online - Detail Indication:Diabetes mellitus type II, controlled Start:30-Jul-2014 Instruction Type:Patient Education How to access health informa tion online Indication:Diabetes mellitus type II, controlled Start:30-Jul-2014 Instruction Type:Patient Education Patient Instructions Indication:Diabetes mellitus type II, controlled Start:30-Jul-2014 Instruction Type:Provider Instructions for Treatment Patient Instructions Indication:Diabetes mellitus type II, controlled Start:19-Dec-2012 Instruction Type:Provider Instructions for Treatment Patient Instructions Indication:Diabetes mellitus type II, controlled Start:11-Feb-2012 Instruction Type:Provider Instructions for Treatment [facility]; [facility] Work Phone: Instructions* Name Dates Details Patient Instructions Indication:BMI 32.0-32.9,adult Start:09-Apr-2021 Instruction Type:Provider Instructions for Treatment How to Access Health Informa tion Online using Patient Portal and [employer]rd [employer] Apps Indication:BMI 32.0-32.9,adult Start:09-Apr-2021 Instruction Type:Patient Education Patient Instructions Indication:BMI 32.0-32.9,adult Start:08-Jan-2021 Instruction Type:Provider Instructions for Treatment How to Access Health Informa tion Online using Patient Portal and [employer]rd [employer] Apps Indication:BMI 32.0-32.9,adult Start:08-Jan-2021 Instruction Type:Patient Education Patient Instructions Indication:BMI 32.0-32.9,adult Start:08-Sep-2020 Instruction Type:Provider Instructions for Treatment How to Access Health Informa tion Online using Patient Portal and [employer]rd [employer] Apps Indication:BMI 32.0-32.9,adult Start:08-Sep-2020 Instruction Type:Patient Education How to Access Health Informa tion Online using Patient Portal and [employer]rd [employer] Apps Indication:Non-smoker Start:05-Jun-2020 Instruction Type:Patient Education Patient Instructions Indication:Non-smoker Start:05-Jun-2020 Instruction Type:Provider Instructions for Treatment How to Access Health Informa tion Online using Patient Portal and [employer]rd [employer] Apps Indication:Non-smoker Start:20-Feb-2020 Instruction Type:Patient Education Patient Instructions Indication:Non-smoker Start:20-Feb-2020 Instruction Type:Provider Instructions for Treatment obesity counseling Indication:Diabetes mellitus type II, controlled Start:06-Dec-2019 Instruction Type:Provider Instructions for Treatment cardiovascular counseling Indication:Coronary artery disease Start:06-Dec-2019 Instruction Type:Provider Instructions for Treatment How to access health informa tion online Indication:BMI 32.0-32.9,adult Start:06-Dec-2019 Instruction Type:Patient Education How to access health informa tion online - Detail Indication:BMI 32.0-32.9,adult Start:06-Dec-2019 Instruction Type:Patient Education Patient Instructions Indication:BMI 32.0-32.9,adult Start:06-Dec-2019 Instruction Type:Provider Instructions for Treatment How to access health informa tion online Indication:Non-smoker Start:19-Nov-2019 Instruction Type:Patient Education How to access health informa tion online - Detail Indication:Non-smoker Start:19-Nov-2019 Instruction Type:Patient Education Patient Instructions Indication:Non-smoker Start:19-Nov-2019 Instruction Type:Provider Instructions for Treatment How to access health informa tion online Indication:Non-smoker Start:16-Aug-2019 Instruction Type:Patient Education How to access health informa tion online - Detail Indication:Non-smoker Start:16-Aug-2019 Instruction Type:Patient Education Patient Instructions Indication:Non-smoker Start:16-Aug-2019 Instruction Type:Provider Instructions for Treatment How to access health informa tion online Indication:Non-smoker Start:16-Apr-2019 Instruction Type:Patient Education How to access health informa tion online - Detail Indication:Non-smoker Start:16-Apr-2019 Instruction Type:Patient Education Patient Instructions Indication:Non-smoker Start:16-Apr-2019 Instruction Type:Provider Instructions for Treatment How to access health informa tion online Indication:Non-smoker Start:09-Feb-2019 Instruction Type:Patient Education How to access health informa tion online - Detail Indication:Non-smoker Start:09-Feb-2019 Instruction Type:Patient Education Patient Instructions Indication:BMI 32.0-32.9,adult Start:09-Feb-2019 Instruction Type:Provider Instructions for Treatment How to access health informa tion online Indication:Non-smoker Start:16-Aug-2018 Instruction Type:Patient Education How to access health informa tion online - Detail Indication:Non-smoker Start:16-Aug-2018 Instruction Type:Patient Education Patient Instructions Indication:Non-smoker Start:16-Aug-2018 Instruction Type:Provider Instructions for Treatment How to access health informa tion online Indication:BMI 32.0-32.9,adult Start:17-May-2018 Instruction Type:Patient Education How to access health informa tion online - Detail Indication:BMI 32.0-32.9,adult Start:17-May-2018 Instruction Type:Patient Education Patient Instructions Indication:BMI 32.0-32.9,adult Start:17-May-2018 Instruction Type:Provider Instructions for Treatment How to access health informa tion online Indication:Diabetes mellitus type II, controlled Start:21-Dec-2017 Instruction Type:Patient Education How to access health informa tion online - Detail Indication:Diabetes mellitus type II, controlled Start:21-Dec-2017 Instruction Type:Patient Education Patient Instructions Indication:Diabetes mellitus type II, controlled Start:21-Dec-2017 Instruction Type:Provider Instructions for Treatment How to access health informa tion online Indication:Diabetes mellitus type II, controlled Start:18-Aug-2017 Instruction Type:Patient Education How to access health informa tion online - Detail Indication:Diabetes mellitus type II, controlled Start:18-Aug-2017 Instruction Type:Patient Education Patient Instructions Indication:Diabetes mellitus type II, controlled Start:18-Aug-2017 Instruction Type:Provider Instructions for Treatment How to access health informa tion online Indication:Diabetes mellitus type II, controlled Start:21-Apr-2016 Instruction Type:Patient Education How to access health informa tion online - Detail Indication:Diabetes mellitus type II, controlled Start:21-Apr-2016 Instruction Type:Patient Education Patient Instructions Indication:Diabetes mellitus type II, controlled Start:21-Apr-2016 Instruction Type:Provider Instructions for Treatment How to access health informa tion online Indication:Hematuria Start:16-Feb-2016 Instruction Type:Patient Education How to access health informa tion online - Detail Indication:Hematuria Start:16-Feb-2016 Instruction Type:Patient Education Patient Instructions Indication:Hematuria Start:16-Feb-2016 Instruction Type:Provider Instructions for Treatment How to access health informa tion online Indication:Anxiety Start:09-Sep-2015 Instruction Type:Patient Education How to access health informa tion online - Detail Indication:Anxiety Start:09-Sep-2015 Instruction Type:Patient Education Patient Instructions Indication:Anxiety Start:09-Sep-2015 Instruction Type:Provider Instructions for Treatment How to access health informa tion online Indication:Anxiety Start:25-Jul-2015 Instruction Type:Patient Education How to access health informa tion online - Detail Indication:Anxiety Start:25-Jul-2015 Instruction Type:Patient Education Patient Instructions Indication:Anxiety Start:25-Jul-2015 Instruction Type:Provider Instructions for Treatment How to access health informa tion online Indication:Diabetes mellitus type II, controlled Start:03-Feb-2015 Instruction Type:Patient Education How to access health informa tion online - Detail Indication:Diabetes mellitus type II, controlled Start:03-Feb-2015 Instruction Type:Patient Education Patient Instructions Indication:Diabetes mellitus type II, controlled Start:03-Feb-2015 Instruction Type:Provider Instructions for Treatment How to access health informa tion online Indication:Contact dermatitis, contact dermatitis due to unspecified agent, unspecified contact dermatitis Start:09-Jan-2015 Instruction Type:Patient Education How to access health informa tion online - Detail Indication:Contact dermatitis, contact dermatitis due to unspecified agent, unspecified contact dermatitis Start:09-Jan-2015 Instruction Type:Patient Education Patient Instructions Indication:Contact dermatitis, contact dermatitis due to unspecified agent, unspecified contact dermatitis Start:09-Jan-2015 Instruction Type:Provider Instructions for Treatment How to access health informa tion online Indication:Diabetes mellitus type II, controlled Start:27-Aug-2014 Instruction Type:Patient Education How to access health informa tion online - Detail Indication:Diabetes mellitus type II, controlled Start:27-Aug-2014 Instruction Type:Patient Education Patient Instructions Indication:Diabetes mellitus type II, controlled Start:27-Aug-2014 Instruction Type:Provider Instructions for Treatment How to access health informa tion online - Detail Indication:Diabetes mellitus type II, controlled Start:30-Jul-2014 Instruction Type:Patient Education How to access health informa tion online Indication:Diabetes mellitus type II, controlled Start:30-Jul-2014 Instruction Type:Patient Education Patient Instructions Indication:Diabetes mellitus type II, controlled Start:30-Jul-2014 Instruction Type:Provider Instructions for Treatment Patient Instructions Indication:Diabetes mellitus type II, controlled Start:19-Dec-2012 Instruction Type:Provider Instructions for Treatment Patient Instructions Indication:Diabetes mellitus type II, controlled Start:11-Feb-2012 Instruction Type:Provider Instructions for Treatment [facility]; [facility] Medicine Work Phone: Instructions* Name Dates Details Patient Instructions Indication:BMI 32.0-32.9,adult Start:09-Apr-2021 Instruction Type:Provider Instructions for Treatment How to Access Health Informa tion Online using Patient Portal and [employer]rd [employer] Apps Indication:BMI 32.0-32.9,adult Start:09-Apr-2021 Instruction Type:Patient Education Patient Instructions Indication:BMI 32.0-32.9,adult Start:08-Jan-2021 Instruction Type:Provider Instructions for Treatment How to Access Health Informa tion Online using Patient Portal and [employer]rd [employer] Apps Indication:BMI 32.0-32.9,adult Start:08-Jan-2021 Instruction Type:Patient Education Patient Instructions Indication:BMI 32.0-32.9,adult Start:08-Sep-2020 Instruction Type:Provider Instructions for Treatment How to Access Health Informa tion Online using Patient Portal and [employer]rd [employer] Apps Indication:BMI 32.0-32.9,adult Start:08-Sep-2020 Instruction Type:Patient Education How to Access Health Informa tion Online using Patient Portal and [employer]rd [employer] Apps Indication:Non-smoker Start:05-Jun-2020 Instruction Type:Patient Education Patient Instructions Indication:Non-smoker Start:05-Jun-2020 Instruction Type:Provider Instructions for Treatment How to Access Health Informa tion Online using Patient Portal and [employer]rd [employer] Apps Indication:Non-smoker Start:20-Feb-2020 Instruction Type:Patient Education Patient Instructions Indication:Non-smoker Start:20-Feb-2020 Instruction Type:Provider Instructions for Treatment obesity counseling Indication:Diabetes mellitus type II, controlled Start:06-Dec-2019 Instruction Type:Provider Instructions for Treatment cardiovascular counseling Indication:Coronary artery disease Start:06-Dec-2019 Instruction Type:Provider Instructions for Treatment How to access health informa tion online Indication:BMI 32.0-32.9,adult Start:06-Dec-2019 Instruction Type:Patient Education How to access health informa tion online - Detail Indication:BMI 32.0-32.9,adult Start:06-Dec-2019 Instruction Type:Patient Education Patient Instructions Indication:BMI 32.0-32.9,adult Start:06-Dec-2019 Instruction Type:Provider Instructions for Treatment How to access health informa tion online Indication:Non-smoker Start:19-Nov-2019 Instruction Type:Patient Education How to access health informa tion online - Detail Indication:Non-smoker Start:19-Nov-2019 Instruction Type:Patient Education Patient Instructions Indication:Non-smoker Start:19-Nov-2019 Instruction Type:Provider Instructions for Treatment How to access health informa tion online Indication:Non-smoker Start:16-Aug-2019 Instruction Type:Patient Education How to access health informa tion online - Detail Indication:Non-smoker Start:16-Aug-2019 Instruction Type:Patient Education Patient Instructions Indication:Non-smoker Start:16-Aug-2019 Instruction Type:Provider Instructions for Treatment How to access health informa tion online Indication:Non-smoker Start:16-Apr-2019 Instruction Type:Patient Education How to access health informa tion online - Detail Indication:Non-smoker Start:16-Apr-2019 Instruction Type:Patient Education Patient Instructions Indication:Non-smoker Start:16-Apr-2019 Instruction Type:Provider Instructions for Treatment How to access health informa tion online Indication:Non-smoker Start:09-Feb-2019 Instruction Type:Patient Education How to access health informa tion online - Detail Indication:Non-smoker Start:09-Feb-2019 Instruction Type:Patient Education Patient Instructions Indication:BMI 32.0-32.9,adult Start:09-Feb-2019 Instruction Type:Provider Instructions for Treatment How to access health informa tion online Indication:Non-smoker Start:16-Aug-2018 Instruction Type:Patient Education How to access health informa tion online - Detail Indication:Non-smoker Start:16-Aug-2018 Instruction Type:Patient Education Patient Instructions Indication:Non-smoker Start:16-Aug-2018 Instruction Type:Provider Instructions for Treatment How to access health informa tion online Indication:BMI 32.0-32.9,adult Start:17-May-2018 Instruction Type:Patient Education How to access health informa tion online - Detail Indication:BMI 32.0-32.9,adult Start:17-May-2018 Instruction Type:Patient Education Patient Instructions Indication:BMI 32.0-32.9,adult Start:17-May-2018 Instruction Type:Provider Instructions for Treatment How to access health informa tion online Indication:Diabetes mellitus type II, controlled Start:21-Dec-2017 Instruction Type:Patient Education How to access health informa tion online - Detail Indication:Diabetes mellitus type II, controlled Start:21-Dec-2017 Instruction Type:Patient Education Patient Instructions Indication:Diabetes mellitus type II, controlled Start:21-Dec-2017 Instruction Type:Provider Instructions for Treatment How to access health informa tion online Indication:Diabetes mellitus type II, controlled Start:18-Aug-2017 Instruction Type:Patient Education How to access health informa tion online - Detail Indication:Diabetes mellitus type II, controlled Start:18-Aug-2017 Instruction Type:Patient Education Patient Instructions Indication:Diabetes mellitus type II, controlled Start:18-Aug-2017 Instruction Type:Provider Instructions for Treatment How to access health informa tion online Indication:Diabetes mellitus type II, controlled Start:21-Apr-2016 Instruction Type:Patient Education How to access health informa tion online - Detail Indication:Diabetes mellitus type II, controlled Start:21-Apr-2016 Instruction Type:Patient Education Patient Instructions Indication:Diabetes mellitus type II, controlled Start:21-Apr-2016 Instruction Type:Provider Instructions for Treatment How to access health informa tion online Indication:Hematuria Start:16-Feb-2016 Instruction Type:Patient Education How to access health informa tion online - Detail Indication:Hematuria Start:16-Feb-2016 Instruction Type:Patient Education Patient Instructions Indication:Hematuria Start:16-Feb-2016 Instruction Type:Provider Instructions for Treatment How to access health informa tion online Indication:Anxiety Start:09-Sep-2015 Instruction Type:Patient Education How to access health informa tion online - Detail Indication:Anxiety Start:09-Sep-2015 Instruction Type:Patient Education Patient Instructions Indication:Anxiety Start:09-Sep-2015 Instruction Type:Provider Instructions for Treatment How to access health informa tion online Indication:Anxiety Start:25-Jul-2015 Instruction Type:Patient Education How to access health informa tion online - Detail Indication:Anxiety Start:25-Jul-2015 Instruction Type:Patient Education Patient Instructions Indication:Anxiety Start:25-Jul-2015 Instruction Type:Provider Instructions for Treatment How to access health informa tion online Indication:Diabetes mellitus type II, controlled Start:03-Feb-2015 Instruction Type:Patient Education How to access health informa tion online - Detail Indication:Diabetes mellitus type II, controlled Start:03-Feb-2015 Instruction Type:Patient Education Patient Instructions Indication:Diabetes mellitus type II, controlled Start:03-Feb-2015 Instruction Type:Provider Instructions for Treatment How to access health informa tion online Indication:Contact dermatitis, contact dermatitis due to unspecified agent, unspecified contact dermatitis Start:09-Jan-2015 Instruction Type:Patient Education How to access health informa tion online - Detail Indication:Contact dermatitis, contact dermatitis due to unspecified agent, unspecified contact dermatitis Start:09-Jan-2015 Instruction Type:Patient Education Patient Instructions Indication:Contact dermatitis, contact dermatitis due to unspecified agent, unspecified contact dermatitis Start:09-Jan-2015 Instruction Type:Provider Instructions for Treatment How to access health informa tion online Indication:Diabetes mellitus type II, controlled Start:27-Aug-2014 Instruction Type:Patient Education How to access health informa tion online - Detail Indication:Diabetes mellitus type II, controlled Start:27-Aug-2014 Instruction Type:Patient Education Patient Instructions Indication:Diabetes mellitus type II, controlled Start:27-Aug-2014 Instruction Type:Provider Instructions for Treatment How to access health informa tion online - Detail Indication:Diabetes mellitus type II, controlled Start:30-Jul-2014 Instruction Type:Patient Education How to access health informa tion online Indication:Diabetes mellitus type II, controlled Start:30-Jul-2014 Instruction Type:Patient Education Patient Instructions Indication:Diabetes mellitus type II, controlled Start:30-Jul-2014 Instruction Type:Provider Instructions for Treatment Patient Instructions Indication:Diabetes mellitus type II, controlled Start:19-Dec-2012 Instruction Type:Provider Instructions for Treatment Patient Instructions Indication:Diabetes mellitus type II, controlled Start:11-Feb-2012 Instruction Type:Provider Instructions for Treatment [facility]; [facility] Work Phone: Instructions* Name Dates Details obesity counseling Indication:Diabetes mellitus type II, controlled Start:05-Aug-2021 Instruction Type:Provider Instructions for Treatment cardiovascular counseling Indication:Coronary artery disease Start:05-Aug-2021 Instruction Type:Provider Instructions for Treatment Patient Instructions Indication:BMI 31.0-31.9,adult Start:05-Aug-2021 Instruction Type:Provider Instructions for Treatment How to Access Health Informa tion Online using Patient Portal and [employer]rd [employer] Apps Indication:BMI 31.0-31.9,adult Start:05-Aug-2021 Instruction Type:Patient Education Patient Instructions Indication:BMI 32.0-32.9,adult Start:09-Apr-2021 Instruction Type:Provider Instructions for Treatment How to Access Health Informa tion Online using Patient Portal and [employer]rd [employer] Apps Indication:BMI 32.0-32.9,adult Start:09-Apr-2021 Instruction Type:Patient Education Patient Instructions Indication:BMI 32.0-32.9,adult Start:08-Jan-2021 Instruction Type:Provider Instructions for Treatment How to Access Health Informa tion Online using Patient Portal and [employer]rd [employer] Apps Indication:BMI 32.0-32.9,adult Start:08-Jan-2021 Instruction Type:Patient Education Patient Instructions Indication:BMI 32.0-32.9,adult Start:08-Sep-2020 Instruction Type:Provider Instructions for Treatment How to Access Health Informa tion Online using Patient Portal and [employer]rd [employer] Apps Indication:BMI 32.0-32.9,adult Start:08-Sep-2020 Instruction Type:Patient Education How to Access Health Informa tion Online using Patient Portal and [employer]rd [employer] Apps Indication:Non-smoker Start:05-Jun-2020 Instruction Type:Patient Education Patient Instructions Indication:Non-smoker Start:05-Jun-2020 Instruction Type:Provider Instructions for Treatment How to Access Health Informa tion Online using Patient Portal and [employer]rd [employer] Apps Indication:Non-smoker Start:20-Feb-2020 Instruction Type:Patient Education Patient Instructions Indication:Non-smoker Start:20-Feb-2020 Instruction Type:Provider Instructions for Treatment obesity counseling Indication:Diabetes mellitus type II, controlled Start:06-Dec-2019 Instruction Type:Provider Instructions for Treatment cardiovascular counseling Indication:Coronary artery disease Start:06-Dec-2019 Instruction Type:Provider Instructions for Treatment How to access health informa tion online Indication:BMI 32.0-32.9,adult Start:06-Dec-2019 Instruction Type:Patient Education How to access health informa tion online - Detail Indication:BMI 32.0-32.9,adult Start:06-Dec-2019 Instruction Type:Patient Education Patient Instructions Indication:BMI 32.0-32.9,adult Start:06-Dec-2019 Instruction Type:Provider Instructions for Treatment How to access health informa tion online Indication:Non-smoker Start:19-Nov-2019 Instruction Type:Patient Education How to access health informa tion online - Detail Indication:Non-smoker Start:19-Nov-2019 Instruction Type:Patient Education Patient Instructions Indication:Non-smoker Start:19-Nov-2019 Instruction Type:Provider Instructions for Treatment How to access health informa tion online Indication:Non-smoker Start:16-Aug-2019 Instruction Type:Patient Education How to access health informa tion online - Detail Indication:Non-smoker Start:16-Aug-2019 Instruction Type:Patient Education Patient Instructions Indication:Non-smoker Start:16-Aug-2019 Instruction Type:Provider Instructions for Treatment How to access health informa tion online Indication:Non-smoker Start:16-Apr-2019 Instruction Type:Patient Education How to access health informa tion online - Detail Indication:Non-smoker Start:16-Apr-2019 Instruction Type:Patient Education Patient Instructions Indication:Non-smoker Start:16-Apr-2019 Instruction Type:Provider Instructions for Treatment How to access health informa tion online Indication:Non-smoker Start:09-Feb-2019 Instruction Type:Patient Education How to access health informa tion online - Detail Indication:Non-smoker Start:09-Feb-2019 Instruction Type:Patient Education Patient Instructions Indication:BMI 32.0-32.9,adult Start:09-Feb-2019 Instruction Type:Provider Instructions for Treatment How to access health informa tion online Indication:Non-smoker Start:16-Aug-2018 Instruction Type:Patient Education How to access health informa tion online - Detail Indication:Non-smoker Start:16-Aug-2018 Instruction Type:Patient Education Patient Instructions Indication:Non-smoker Start:16-Aug-2018 Instruction Type:Provider Instructions for Treatment How to access health informa tion online Indication:BMI 32.0-32.9,adult Start:17-May-2018 Instruction Type:Patient Education How to access health informa tion online - Detail Indication:BMI 32.0-32.9,adult Start:17-May-2018 Instruction Type:Patient Education Patient Instructions Indication:BMI 32.0-32.9,adult Start:17-May-2018 Instruction Type:Provider Instructions for Treatment How to access health informa tion online Indication:Diabetes mellitus type II, controlled Start:21-Dec-2017 Instruction Type:Patient Education How to access health informa tion online - Detail Indication:Diabetes mellitus type II, controlled Start:21-Dec-2017 Instruction Type:Patient Education Patient Instructions Indication:Diabetes mellitus type II, controlled Start:21-Dec-2017 Instruction Type:Provider Instructions for Treatment How to access health informa tion online Indication:Diabetes mellitus type II, controlled Start:18-Aug-2017 Instruction Type:Patient Education How to access health informa tion online - Detail Indication:Diabetes mellitus type II, controlled Start:18-Aug-2017 Instruction Type:Patient Education Patient Instructions Indication:Diabetes mellitus type II, controlled Start:18-Aug-2017 Instruction Type:Provider Instructions for Treatment How to access health informa tion online Indication:Diabetes mellitus type II, controlled Start:21-Apr-2016 Instruction Type:Patient Education How to access health informa tion online - Detail Indication:Diabetes mellitus type II, controlled Start:21-Apr-2016 Instruction Type:Patient Education Patient Instructions Indication:Diabetes mellitus type II, controlled Start:21-Apr-2016 Instruction Type:Provider Instructions for Treatment How to access health informa tion online Indication:Hematuria Start:16-Feb-2016 Instruction Type:Patient Education How to access health informa tion online - Detail Indication:Hematuria Start:16-Feb-2016 Instruction Type:Patient Education Patient Instructions Indication:Hematuria Start:16-Feb-2016 Instruction Type:Provider Instructions for Treatment How to access health informa tion online Indication:Anxiety Start:09-Sep-2015 Instruction Type:Patient Education How to access health informa tion online - Detail Indication:Anxiety Start:09-Sep-2015 Instruction Type:Patient Education Patient Instructions Indication:Anxiety Start:09-Sep-2015 Instruction Type:Provider Instructions for Treatment How to access health informa tion online Indication:Anxiety Start:25-Jul-2015 Instruction Type:Patient Education How to access health informa tion online - Detail Indication:Anxiety Start:25-Jul-2015 Instruction Type:Patient Education Patient Instructions Indication:Anxiety Start:25-Jul-2015 Instruction Type:Provider Instructions for Treatment How to access health informa tion online Indication:Diabetes mellitus type II, controlled Start:03-Feb-2015 Instruction Type:Patient Education How to access health informa tion online - Detail Indication:Diabetes mellitus type II, controlled Start:03-Feb-2015 Instruction Type:Patient Education Patient Instructions Indication:Diabetes mellitus type II, controlled Start:03-Feb-2015 Instruction Type:Provider Instructions for Treatment How to access health informa tion online Indication:Contact dermatitis, contact dermatitis due to unspecified agent, unspecified contact dermatitis Start:09-Jan-2015 Instruction Type:Patient Education How to access health informa tion online - Detail Indication:Contact dermatitis, contact dermatitis due to unspecified agent, unspecified contact dermatitis Start:09-Jan-2015 Instruction Type:Patient Education Patient Instructions Indication:Contact dermatitis, contact dermatitis due to unspecified agent, unspecified contact dermatitis Start:09-Jan-2015 Instruction Type:Provider Instructions for Treatment How to access health informa tion online Indication:Diabetes mellitus type II, controlled Start:27-Aug-2014 Instruction Type:Patient Education How to access health informa tion online - Detail Indication:Diabetes mellitus type II, controlled Start:27-Aug-2014 Instruction Type:Patient Education Patient Instructions Indication:Diabetes mellitus type II, controlled Start:27-Aug-2014 Instruction Type:Provider Instructions for Treatment How to access health informa tion online - Detail Indication:Diabetes mellitus type II, controlled Start:30-Jul-2014 Instruction Type:Patient Education How to access health informa tion online Indication:Diabetes mellitus type II, controlled Start:30-Jul-2014 Instruction Type:Patient Education Patient Instructions Indication:Diabetes mellitus type II, controlled Start:30-Jul-2014 Instruction Type:Provider Instructions for Treatment Patient Instructions Indication:Diabetes mellitus type II, controlled Start:19-Dec-2012 Instruction Type:Provider Instructions for Treatment Patient Instructions Indication:Diabetes mellitus type II, controlled Start:11-Feb-2012 Instruction Type:Provider Instructions for Treatment [facility]; [facility] Work Phone: Instructions* Name Dates Details Patient Instructions Indication:Diabetes mellitus type II, controlled Start:06-Nov-2021 Instruction Type:Provider Instructions for Treatment How to Access Health Informa tion Online using Patient Portal and [employer]rd [employer] Apps Indication:Diabetes mellitus type II, controlled Start:06-Nov-2021 Instruction Type:Patient Education obesity counseling Indication:Diabetes mellitus type II, controlled Start:05-Aug-2021 Instruction Type:Provider Instructions for Treatment cardiovascular counseling Indication:Coronary artery disease Start:05-Aug-2021 Instruction Type:Provider Instructions for Treatment Patient Instructions Indication:BMI 31.0-31.9,adult Start:05-Aug-2021 Instruction Type:Provider Instructions for Treatment How to Access Health Informa tion Online using Patient Portal and [employer]rd [employer] Apps Indication:BMI 31.0-31.9,adult Start:05-Aug-2021 Instruction Type:Patient Education Patient Instructions Indication:BMI 32.0-32.9,adult Start:09-Apr-2021 Instruction Type:Provider Instructions for Treatment How to Access Health Informa tion Online using Patient Portal and [employer]rd [employer] Apps Indication:BMI 32.0-32.9,adult Start:09-Apr-2021 Instruction Type:Patient Education Patient Instructions Indication:BMI 32.0-32.9,adult Start:08-Jan-2021 Instruction Type:Provider Instructions for Treatment How to Access Health Informa tion Online using Patient Portal and [employer]rd [employer] Apps Indication:BMI 32.0-32.9,adult Start:08-Jan-2021 Instruction Type:Patient Education Patient Instructions Indication:BMI 32.0-32.9,adult Start:08-Sep-2020 Instruction Type:Provider Instructions for Treatment How to Access Health Informa tion Online using Patient Portal and [employer]rd [employer] Apps Indication:BMI 32.0-32.9,adult Start:08-Sep-2020 Instruction Type:Patient Education How to Access Health Informa tion Online using Patient Portal and [employer]rd [employer] Apps Indication:Non-smoker Start:05-Jun-2020 Instruction Type:Patient Education Patient Instructions Indication:Non-smoker Start:05-Jun-2020 Instruction Type:Provider Instructions for Treatment How to Access Health Informa tion Online using Patient Portal and [employer]rd [employer] Apps Indication:Non-smoker Start:20-Feb-2020 Instruction Type:Patient Education Patient Instructions Indication:Non-smoker Start:20-Feb-2020 Instruction Type:Provider Instructions for Treatment obesity counseling Indication:Diabetes mellitus type II, controlled Start:06-Dec-2019 Instruction Type:Provider Instructions for Treatment cardiovascular counseling Indication:Coronary artery disease Start:06-Dec-2019 Instruction Type:Provider Instructions for Treatment How to access health informa tion online Indication:BMI 32.0-32.9,adult Start:06-Dec-2019 Instruction Type:Patient Education How to access health informa tion online - Detail Indication:BMI 32.0-32.9,adult Start:06-Dec-2019 Instruction Type:Patient Education Patient Instructions Indication:BMI 32.0-32.9,adult Start:06-Dec-2019 Instruction Type:Provider Instructions for Treatment How to access health informa tion online Indication:Non-smoker Start:19-Nov-2019 Instruction Type:Patient Education How to access health informa tion online - Detail Indication:Non-smoker Start:19-Nov-2019 Instruction Type:Patient Education Patient Instructions Indication:Non-smoker Start:19-Nov-2019 Instruction Type:Provider Instructions for Treatment How to access health informa tion online Indication:Non-smoker Start:16-Aug-2019 Instruction Type:Patient Education How to access health informa tion online - Detail Indication:Non-smoker Start:16-Aug-2019 Instruction Type:Patient Education Patient Instructions Indication:Non-smoker Start:16-Aug-2019 Instruction Type:Provider Instructions for Treatment How to access health informa tion online Indication:Non-smoker Start:16-Apr-2019 Instruction Type:Patient Education How to access health informa tion online - Detail Indication:Non-smoker Start:16-Apr-2019 Instruction Type:Patient Education Patient Instructions Indication:Non-smoker Start:16-Apr-2019 Instruction Type:Provider Instructions for Treatment How to access health informa tion online Indication:Non-smoker Start:09-Feb-2019 Instruction Type:Patient Education How to access health informa tion online - Detail Indication:Non-smoker Start:09-Feb-2019 Instruction Type:Patient Education Patient Instructions Indication:BMI 32.0-32.9,adult Start:09-Feb-2019 Instruction Type:Provider Instructions for Treatment How to access health informa tion online Indication:Non-smoker Start:16-Aug-2018 Instruction Type:Patient Education How to access health informa tion online - Detail Indication:Non-smoker Start:16-Aug-2018 Instruction Type:Patient Education Patient Instructions Indication:Non-smoker Start:16-Aug-2018 Instruction Type:Provider Instructions for Treatment How to access health informa tion online Indication:BMI 32.0-32.9,adult Start:17-May-2018 Instruction Type:Patient Education How to access health informa tion online - Detail Indication:BMI 32.0-32.9,adult Start:17-May-2018 Instruction Type:Patient Education Patient Instructions Indication:BMI 32.0-32.9,adult Start:17-May-2018 Instruction Type:Provider Instructions for Treatment How to access health informa tion online Indication:Diabetes mellitus type II, controlled Start:21-Dec-2017 Instruction Type:Patient Education How to access health informa tion online - Detail Indication:Diabetes mellitus type II, controlled Start:21-Dec-2017 Instruction Type:Patient Education Patient Instructions Indication:Diabetes mellitus type II, controlled Start:21-Dec-2017 Instruction Type:Provider Instructions for Treatment How to access health informa tion online Indication:Diabetes mellitus type II, controlled Start:18-Aug-2017 Instruction Type:Patient Education How to access health informa tion online - Detail Indication:Diabetes mellitus type II, controlled Start:18-Aug-2017 Instruction Type:Patient Education Patient Instructions Indication:Diabetes mellitus type II, controlled Start:18-Aug-2017 Instruction Type:Provider Instructions for Treatment How to access health informa tion online Indication:Diabetes mellitus type II, controlled Start:21-Apr-2016 Instruction Type:Patient Education How to access health informa tion online - Detail Indication:Diabetes mellitus type II, controlled Start:21-Apr-2016 Instruction Type:Patient Education Patient Instructions Indication:Diabetes mellitus type II, controlled Start:21-Apr-2016 Instruction Type:Provider Instructions for Treatment How to access health informa tion online Indication:Hematuria Start:16-Feb-2016 Instruction Type:Patient Education How to access health informa tion online - Detail Indication:Hematuria Start:16-Feb-2016 Instruction Type:Patient Education Patient Instructions Indication:Hematuria Start:16-Feb-2016 Instruction Type:Provider Instructions for Treatment How to access health informa tion online Indication:Anxiety Start:09-Sep-2015 Instruction Type:Patient Education How to access health informa tion online - Detail Indication:Anxiety Start:09-Sep-2015 Instruction Type:Patient Education Patient Instructions Indication:Anxiety Start:09-Sep-2015 Instruction Type:Provider Instructions for Treatment How to access health informa tion online Indication:Anxiety Start:25-Jul-2015 Instruction Type:Patient Education How to access health informa tion online - Detail Indication:Anxiety Start:25-Jul-2015 Instruction Type:Patient Education Patient Instructions Indication:Anxiety Start:25-Jul-2015 Instruction Type:Provider Instructions for Treatment How to access health informa tion online Indication:Diabetes mellitus type II, controlled Start:03-Feb-2015 Instruction Type:Patient Education How to access health informa tion online - Detail Indication:Diabetes mellitus type II, controlled Start:03-Feb-2015 Instruction Type:Patient Education Patient Instructions Indication:Diabetes mellitus type II, controlled Start:03-Feb-2015 Instruction Type:Provider Instructions for Treatment How to access health informa tion online Indication:Contact dermatitis, contact dermatitis due to unspecified agent, unspecified contact dermatitis Start:09-Jan-2015 Instruction Type:Patient Education How to access health informa tion online - Detail Indication:Contact dermatitis, contact dermatitis due to unspecified agent, unspecified contact dermatitis Start:09-Jan-2015 Instruction Type:Patient Education Patient Instructions Indication:Contact dermatitis, contact dermatitis due to unspecified agent, unspecified contact dermatitis Start:09-Jan-2015 Instruction Type:Provider Instructions for Treatment How to access health informa tion online Indication:Diabetes mellitus type II, controlled Start:27-Aug-2014 Instruction Type:Patient Education How to access health informa tion online - Detail Indication:Diabetes mellitus type II, controlled Start:27-Aug-2014 Instruction Type:Patient Education Patient Instructions Indication:Diabetes mellitus type II, controlled Start:27-Aug-2014 Instruction Type:Provider Instructions for Treatment How to access health informa tion online - Detail Indication:Diabetes mellitus type II, controlled Start:30-Jul-2014 Instruction Type:Patient Education How to access health informa tion online Indication:Diabetes mellitus type II, controlled Start:30-Jul-2014 Instruction Type:Patient Education Patient Instructions Indication:Diabetes mellitus type II, controlled Start:30-Jul-2014 Instruction Type:Provider Instructions for Treatment Patient Instructions Indication:Diabetes mellitus type II, controlled Start:19-Dec-2012 Instruction Type:Provider Instructions for Treatment Patient Instructions Indication:Diabetes mellitus type II, controlled Start:11-Feb-2012 Instruction Type:Provider Instructions for Treatment [facility]; [facility] Work Phone: Instructions* Name Dates Details Patient Instructions Indication:Urinary frequency Start:03-Dec-2021 Instruction Type:Provider Instructions for Treatment How to Access Health Informa tion Online using Patient Portal and [employer]rd [employer] Apps Indication:Urinary frequency Start:03-Dec-2021 Instruction Type:Patient Education Patient Instructions Indication:Diabetes mellitus type II, controlled Start:06-Nov-2021 Instruction Type:Provider Instructions for Treatment How to Access Health Informa tion Online using Patient Portal and [employer]rd [employer] Apps Indication:Diabetes mellitus type II, controlled Start:06-Nov-2021 Instruction Type:Patient Education obesity counseling Indication:Diabetes mellitus type II, controlled Start:05-Aug-2021 Instruction Type:Provider Instructions for Treatment cardiovascular counseling Indication:Coronary artery disease Start:05-Aug-2021 Instruction Type:Provider Instructions for Treatment Patient Instructions Indication:BMI 31.0-31.9,adult Start:05-Aug-2021 Instruction Type:Provider Instructions for Treatment How to Access Health Informa tion Online using Patient Portal and [employer]rd [employer] Apps Indication:BMI 31.0-31.9,adult Start:05-Aug-2021 Instruction Type:Patient Education Patient Instructions Indication:BMI 32.0-32.9,adult Start:09-Apr-2021 Instruction Type:Provider Instructions for Treatment How to Access Health Informa tion Online using Patient Portal and [employer]rd [employer] Apps Indication:BMI 32.0-32.9,adult Start:09-Apr-2021 Instruction Type:Patient Education Patient Instructions Indication:BMI 32.0-32.9,adult Start:08-Jan-2021 Instruction Type:Provider Instructions for Treatment How to Access Health Informa tion Online using Patient Portal and [employer]rd [employer] Apps Indication:BMI 32.0-32.9,adult Start:08-Jan-2021 Instruction Type:Patient Education Patient Instructions Indication:BMI 32.0-32.9,adult Start:08-Sep-2020 Instruction Type:Provider Instructions for Treatment How to Access Health Informa tion Online using Patient Portal and [employer]rd [employer] Apps Indication:BMI 32.0-32.9,adult Start:08-Sep-2020 Instruction Type:Patient Education How to Access Health Informa tion Online using Patient Portal and [employer]rd [employer] Apps Indication:Non-smoker Start:05-Jun-2020 Instruction Type:Patient Education Patient Instructions Indication:Non-smoker Start:05-Jun-2020 Instruction Type:Provider Instructions for Treatment How to Access Health Informa tion Online using Patient Portal and [employer]rd [employer] Apps Indication:Non-smoker Start:20-Feb-2020 Instruction Type:Patient Education Patient Instructions Indication:Non-smoker Start:20-Feb-2020 Instruction Type:Provider Instructions for Treatment obesity counseling Indication:Diabetes mellitus type II, controlled Start:06-Dec-2019 Instruction Type:Provider Instructions for Treatment cardiovascular counseling Indication:Coronary artery disease Start:06-Dec-2019 Instruction Type:Provider Instructions for Treatment How to access health informa tion online Indication:BMI 32.0-32.9,adult Start:06-Dec-2019 Instruction Type:Patient Education How to access health informa tion online - Detail Indication:BMI 32.0-32.9,adult Start:06-Dec-2019 Instruction Type:Patient Education Patient Instructions Indication:BMI 32.0-32.9,adult Start:06-Dec-2019 Instruction Type:Provider Instructions for Treatment How to access health informa tion online Indication:Non-smoker Start:19-Nov-2019 Instruction Type:Patient Education How to access health informa tion online - Detail Indication:Non-smoker Start:19-Nov-2019 Instruction Type:Patient Education Patient Instructions Indication:Non-smoker Start:19-Nov-2019 Instruction Type:Provider Instructions for Treatment How to access health informa tion online Indication:Non-smoker Start:16-Aug-2019 Instruction Type:Patient Education How to access health informa tion online - Detail Indication:Non-smoker Start:16-Aug-2019 Instruction Type:Patient Education Patient Instructions Indication:Non-smoker Start:16-Aug-2019 Instruction Type:Provider Instructions for Treatment How to access health informa tion online Indication:Non-smoker Start:16-Apr-2019 Instruction Type:Patient Education How to access health informa tion online - Detail Indication:Non-smoker Start:16-Apr-2019 Instruction Type:Patient Education Patient Instructions Indication:Non-smoker Start:16-Apr-2019 Instruction Type:Provider Instructions for Treatment How to access health informa tion online Indication:Non-smoker Start:09-Feb-2019 Instruction Type:Patient Education How to access health informa tion online - Detail Indication:Non-smoker Start:09-Feb-2019 Instruction Type:Patient Education Patient Instructions Indication:BMI 32.0-32.9,adult Start:09-Feb-2019 Instruction Type:Provider Instructions for Treatment How to access health informa tion online Indication:Non-smoker Start:16-Aug-2018 Instruction Type:Patient Education How to access health informa tion online - Detail Indication:Non-smoker Start:16-Aug-2018 Instruction Type:Patient Education Patient Instructions Indication:Non-smoker Start:16-Aug-2018 Instruction Type:Provider Instructions for Treatment How to access health informa tion online Indication:BMI 32.0-32.9,adult Start:17-May-2018 Instruction Type:Patient Education How to access health informa tion online - Detail Indication:BMI 32.0-32.9,adult Start:17-May-2018 Instruction Type:Patient Education Patient Instructions Indication:BMI 32.0-32.9,adult Start:17-May-2018 Instruction Type:Provider Instructions for Treatment How to access health informa tion online Indication:Diabetes mellitus type II, controlled Start:21-Dec-2017 Instruction Type:Patient Education How to access health informa tion online - Detail Indication:Diabetes mellitus type II, controlled Start:21-Dec-2017 Instruction Type:Patient Education Patient Instructions Indication:Diabetes mellitus type II, controlled Start:21-Dec-2017 Instruction Type:Provider Instructions for Treatment How to access health informa tion online Indication:Diabetes mellitus type II, controlled Start:18-Aug-2017 Instruction Type:Patient Education How to access health informa tion online - Detail Indication:Diabetes mellitus type II, controlled Start:18-Aug-2017 Instruction Type:Patient Education Patient Instructions Indication:Diabetes mellitus type II, controlled Start:18-Aug-2017 Instruction Type:Provider Instructions for Treatment How to access health informa tion online Indication:Diabetes mellitus type II, controlled Start:21-Apr-2016 Instruction Type:Patient Education How to access health informa tion online - Detail Indication:Diabetes mellitus type II, controlled Start:21-Apr-2016 Instruction Type:Patient Education Patient Instructions Indication:Diabetes mellitus type II, controlled Start:21-Apr-2016 Instruction Type:Provider Instructions for Treatment How to access health informa tion online Indication:Hematuria Start:16-Feb-2016 Instruction Type:Patient Education How to access health informa tion online - Detail Indication:Hematuria Start:16-Feb-2016 Instruction Type:Patient Education Patient Instructions Indication:Hematuria Start:16-Feb-2016 Instruction Type:Provider Instructions for Treatment How to access health informa tion online Indication:Anxiety Start:09-Sep-2015 Instruction Type:Patient Education How to access health informa tion online - Detail Indication:Anxiety Start:09-Sep-2015 Instruction Type:Patient Education Patient Instructions Indication:Anxiety Start:09-Sep-2015 Instruction Type:Provider Instructions for Treatment How to access health informa tion online Indication:Anxiety Start:25-Jul-2015 Instruction Type:Patient Education How to access health informa tion online - Detail Indication:Anxiety Start:25-Jul-2015 Instruction Type:Patient Education Patient Instructions Indication:Anxiety Start:25-Jul-2015 Instruction Type:Provider Instructions for Treatment How to access health informa tion online Indication:Diabetes mellitus type II, controlled Start:03-Feb-2015 Instruction Type:Patient Education How to access health informa tion online - Detail Indication:Diabetes mellitus type II, controlled Start:03-Feb-2015 Instruction Type:Patient Education Patient Instructions Indication:Diabetes mellitus type II, controlled Start:03-Feb-2015 Instruction Type:Provider Instructions for Treatment How to access health informa tion online Indication:Contact dermatitis, contact dermatitis due to unspecified agent, unspecified contact dermatitis Start:09-Jan-2015 Instruction Type:Patient Education How to access health informa tion online - Detail Indication:Contact dermatitis, contact dermatitis due to unspecified agent, unspecified contact dermatitis Start:09-Jan-2015 Instruction Type:Patient Education Patient Instructions Indication:Contact dermatitis, contact dermatitis due to unspecified agent, unspecified contact dermatitis Start:09-Jan-2015 Instruction Type:Provider Instructions for Treatment How to access health informa tion online Indication:Diabetes mellitus type II, controlled Start:27-Aug-2014 Instruction Type:Patient Education How to access health informa tion online - Detail Indication:Diabetes mellitus type II, controlled Start:27-Aug-2014 Instruction Type:Patient Education Patient Instructions Indication:Diabetes mellitus type II, controlled Start:27-Aug-2014 Instruction Type:Provider Instructions for Treatment How to access health informa tion online - Detail Indication:Diabetes mellitus type II, controlled Start:30-Jul-2014 Instruction Type:Patient Education How to access health informa tion online Indication:Diabetes mellitus type II, controlled Start:30-Jul-2014 Instruction Type:Patient Education Patient Instructions Indication:Diabetes mellitus type II, controlled Start:30-Jul-2014 Instruction Type:Provider Instructions for Treatment Patient Instructions Indication:Diabetes mellitus type II, controlled Start:19-Dec-2012 Instruction Type:Provider Instructions for Treatment Patient Instructions Indication:Diabetes mellitus type II, controlled Start:11-Feb-2012 Instruction Type:Provider Instructions for Treatment [facility]; [facility] Work Phone: Instructions* Name Dates Details Patient Instructions Indication:Urinary frequency Start:03-Dec-2021 Instruction Type:Provider Instructions for Treatment How to Access Health Informa tion Online using Patient Portal and [employer]rd [employer] Apps Indication:Urinary frequency Start:03-Dec-2021 Instruction Type:Patient Education Patient Instructions Indication:Diabetes mellitus type II, controlled Start:06-Nov-2021 Instruction Type:Provider Instructions for Treatment How to Access Health Informa tion Online using Patient Portal and [employer]rd [employer] Apps Indication:Diabetes mellitus type II, controlled Start:06-Nov-2021 Instruction Type:Patient Education obesity counseling Indication:Diabetes mellitus type II, controlled Start:05-Aug-2021 Instruction Type:Provider Instructions for Treatment cardiovascular counseling Indication:Coronary artery disease Start:05-Aug-2021 Instruction Type:Provider Instructions for Treatment Patient Instructions Indication:BMI 31.0-31.9,adult Start:05-Aug-2021 Instruction Type:Provider Instructions for Treatment How to Access Health Informa tion Online using Patient Portal and [employer]rd [employer] Apps Indication:BMI 31.0-31.9,adult Start:05-Aug-2021 Instruction Type:Patient Education Patient Instructions Indication:BMI 32.0-32.9,adult Start:09-Apr-2021 Instruction Type:Provider Instructions for Treatment How to Access Health Informa tion Online using Patient Portal and [employer]rd [employer] Apps Indication:BMI 32.0-32.9,adult Start:09-Apr-2021 Instruction Type:Patient Education Patient Instructions Indication:BMI 32.0-32.9,adult Start:08-Jan-2021 Instruction Type:Provider Instructions for Treatment How to Access Health Informa tion Online using Patient Portal and [employer]rd [employer] Apps Indication:BMI 32.0-32.9,adult Start:08-Jan-2021 Instruction Type:Patient Education Patient Instructions Indication:BMI 32.0-32.9,adult Start:08-Sep-2020 Instruction Type:Provider Instructions for Treatment How to Access Health Informa tion Online using Patient Portal and [employer]rd [employer] Apps Indication:BMI 32.0-32.9,adult Start:08-Sep-2020 Instruction Type:Patient Education How to Access Health Informa tion Online using Patient Portal and [employer]rd [employer] Apps Indication:Non-smoker Start:05-Jun-2020 Instruction Type:Patient Education Patient Instructions Indication:Non-smoker Start:05-Jun-2020 Instruction Type:Provider Instructions for Treatment How to Access Health Informa tion Online using Patient Portal and [employer]rd [employer] Apps Indication:Non-smoker Start:20-Feb-2020 Instruction Type:Patient Education Patient Instructions Indication:Non-smoker Start:20-Feb-2020 Instruction Type:Provider Instructions for Treatment obesity counseling Indication:Diabetes mellitus type II, controlled Start:06-Dec-2019 Instruction Type:Provider Instructions for Treatment cardiovascular counseling Indication:Coronary artery disease Start:06-Dec-2019 Instruction Type:Provider Instructions for Treatment How to access health informa tion online Indication:BMI 32.0-32.9,adult Start:06-Dec-2019 Instruction Type:Patient Education How to access health informa tion online - Detail Indication:BMI 32.0-32.9,adult Start:06-Dec-2019 Instruction Type:Patient Education Patient Instructions Indication:BMI 32.0-32.9,adult Start:06-Dec-2019 Instruction Type:Provider Instructions for Treatment How to access health informa tion online Indication:Non-smoker Start:19-Nov-2019 Instruction Type:Patient Education How to access health informa tion online - Detail Indication:Non-smoker Start:19-Nov-2019 Instruction Type:Patient Education Patient Instructions Indication:Non-smoker Start:19-Nov-2019 Instruction Type:Provider Instructions for Treatment How to access health informa tion online Indication:Non-smoker Start:16-Aug-2019 Instruction Type:Patient Education How to access health informa tion online - Detail Indication:Non-smoker Start:16-Aug-2019 Instruction Type:Patient Education Patient Instructions Indication:Non-smoker Start:16-Aug-2019 Instruction Type:Provider Instructions for Treatment How to access health informa tion online Indication:Non-smoker Start:16-Apr-2019 Instruction Type:Patient Education How to access health informa tion online - Detail Indication:Non-smoker Start:16-Apr-2019 Instruction Type:Patient Education Patient Instructions Indication:Non-smoker Start:16-Apr-2019 Instruction Type:Provider Instructions for Treatment How to access health informa tion online Indication:Non-smoker Start:09-Feb-2019 Instruction Type:Patient Education How to access health informa tion online - Detail Indication:Non-smoker Start:09-Feb-2019 Instruction Type:Patient Education Patient Instructions Indication:BMI 32.0-32.9,adult Start:09-Feb-2019 Instruction Type:Provider Instructions for Treatment How to access health informa tion online Indication:Non-smoker Start:16-Aug-2018 Instruction Type:Patient Education How to access health informa tion online - Detail Indication:Non-smoker Start:16-Aug-2018 Instruction Type:Patient Education Patient Instructions Indication:Non-smoker Start:16-Aug-2018 Instruction Type:Provider Instructions for Treatment How to access health informa tion online Indication:BMI 32.0-32.9,adult Start:17-May-2018 Instruction Type:Patient Education How to access health informa tion online - Detail Indication:BMI 32.0-32.9,adult Start:17-May-2018 Instruction Type:Patient Education Patient Instructions Indication:BMI 32.0-32.9,adult Start:17-May-2018 Instruction Type:Provider Instructions for Treatment How to access health informa tion online Indication:Diabetes mellitus type II, controlled Start:21-Dec-2017 Instruction Type:Patient Education How to access health informa tion online - Detail Indication:Diabetes mellitus type II, controlled Start:21-Dec-2017 Instruction Type:Patient Education Patient Instructions Indication:Diabetes mellitus type II, controlled Start:21-Dec-2017 Instruction Type:Provider Instructions for Treatment How to access health informa tion online Indication:Diabetes mellitus type II, controlled Start:18-Aug-2017 Instruction Type:Patient Education How to access health informa tion online - Detail Indication:Diabetes mellitus type II, controlled Start:18-Aug-2017 Instruction Type:Patient Education Patient Instructions Indication:Diabetes mellitus type II, controlled Start:18-Aug-2017 Instruction Type:Provider Instructions for Treatment How to access health informa tion online Indication:Diabetes mellitus type II, controlled Start:21-Apr-2016 Instruction Type:Patient Education How to access health informa tion online - Detail Indication:Diabetes mellitus type II, controlled Start:21-Apr-2016 Instruction Type:Patient Education Patient Instructions Indication:Diabetes mellitus type II, controlled Start:21-Apr-2016 Instruction Type:Provider Instructions for Treatment How to access health informa tion online Indication:Hematuria Start:16-Feb-2016 Instruction Type:Patient Education How to access health informa tion online - Detail Indication:Hematuria Start:16-Feb-2016 Instruction Type:Patient Education Patient Instructions Indication:Hematuria Start:16-Feb-2016 Instruction Type:Provider Instructions for Treatment How to access health informa tion online Indication:Anxiety Start:09-Sep-2015 Instruction Type:Patient Education How to access health informa tion online - Detail Indication:Anxiety Start:09-Sep-2015 Instruction Type:Patient Education Patient Instructions Indication:Anxiety Start:09-Sep-2015 Instruction Type:Provider Instructions for Treatment How to access health informa tion online Indication:Anxiety Start:25-Jul-2015 Instruction Type:Patient Education How to access health informa tion online - Detail Indication:Anxiety Start:25-Jul-2015 Instruction Type:Patient Education Patient Instructions Indication:Anxiety Start:25-Jul-2015 Instruction Type:Provider Instructions for Treatment How to access health informa tion online Indication:Diabetes mellitus type II, controlled Start:03-Feb-2015 Instruction Type:Patient Education How to access health informa tion online - Detail Indication:Diabetes mellitus type II, controlled Start:03-Feb-2015 Instruction Type:Patient Education Patient Instructions Indication:Diabetes mellitus type II, controlled Start:03-Feb-2015 Instruction Type:Provider Instructions for Treatment How to access health informa tion online Indication:Contact dermatitis, contact dermatitis due to unspecified agent, unspecified contact dermatitis Start:09-Jan-2015 Instruction Type:Patient Education How to access health informa tion online - Detail Indication:Contact dermatitis, contact dermatitis due to unspecified agent, unspecified contact dermatitis Start:09-Jan-2015 Instruction Type:Patient Education Patient Instructions Indication:Contact dermatitis, contact dermatitis due to unspecified agent, unspecified contact dermatitis Start:09-Jan-2015 Instruction Type:Provider Instructions for Treatment How to access health informa tion online Indication:Diabetes mellitus type II, controlled Start:27-Aug-2014 Instruction Type:Patient Education How to access health informa tion online - Detail Indication:Diabetes mellitus type II, controlled Start:27-Aug-2014 Instruction Type:Patient Education Patient Instructions Indication:Diabetes mellitus type II, controlled Start:27-Aug-2014 Instruction Type:Provider Instructions for Treatment How to access health informa tion online - Detail Indication:Diabetes mellitus type II, controlled Start:30-Jul-2014 Instruction Type:Patient Education How to access health informa tion online Indication:Diabetes mellitus type II, controlled Start:30-Jul-2014 Instruction Type:Patient Education Patient Instructions Indication:Diabetes mellitus type II, controlled Start:30-Jul-2014 Instruction Type:Provider Instructions for Treatment Patient Instructions Indication:Diabetes mellitus type II, controlled Start:19-Dec-2012 Instruction Type:Provider Instructions for Treatment Patient Instructions Indication:Diabetes mellitus type II, controlled Start:11-Feb-2012 Instruction Type:Provider Instructions for Treatment [facility] Work Phone: Instructions* Name Dates Details Patient Instructions Indication:Urinary frequency Start:03-Dec-2021 Instruction Type:Provider Instructions for Treatment How to Access Health Informa tion Online using Patient Portal and [employer]rd [employer] Apps Indication:Urinary frequency Start:03-Dec-2021 Instruction Type:Patient Education Patient Instructions Indication:Diabetes mellitus type II, controlled Start:06-Nov-2021 Instruction Type:Provider Instructions for Treatment How to Access Health Informa tion Online using Patient Portal and [employer] Apps Indication:Diabetes mellitus type II, controlled Start:06-Nov-2021 Instruction Type:Patient Education obesity counseling Indication:Diabetes mellitus type II, controlled Start:05-Aug-2021 Instruction Type:Provider Instructions for Treatment cardiovascular counseling Indication:Coronary artery disease Start:05-Aug-2021 Instruction Type:Provider Instructions for Treatment Patient Instructions Indication:BMI 31.0-31.9,adult Start:05-Aug-2021 Instruction Type:Provider Instructions for Treatment How to Access Health Informa tion Online using Patient Portal and [employer]rd [employer] Apps Indication:BMI 31.0-31.9,adult Start:05-Aug-2021 Instruction Type:Patient Education Patient Instructions Indication:BMI 32.0-32.9,adult Start:09-Apr-2021 Instruction Type:Provider Instructions for Treatment How to Access Health Informa tion Online using Patient Portal and [employer]rd [employer] Apps Indication:BMI 32.0-32.9,adult Start:09-Apr-2021 Instruction Type:Patient Education Patient Instructions Indication:BMI 32.0-32.9,adult Start:08-Jan-2021 Instruction Type:Provider Instructions for Treatment How to Access Health Informa tion Online using Patient Portal and [employer]rd [employer] Apps Indication:BMI 32.0-32.9,adult Start:08-Jan-2021 Instruction Type:Patient Education Patient Instructions Indication:BMI 32.0-32.9,adult Start:08-Sep-2020 Instruction Type:Provider Instructions for Treatment How to Access Health Informa tion Online using Patient Portal and [employer]rd [employer] Apps Indication:BMI 32.0-32.9,adult Start:08-Sep-2020 Instruction Type:Patient Education How to Access Health Informa tion Online using Patient Portal and [employer]rd [employer] Apps Indication:Non-smoker Start:05-Jun-2020 Instruction Type:Patient Education Patient Instructions Indication:Non-smoker Start:05-Jun-2020 Instruction Type:Provider Instructions for Treatment How to Access Health Informa tion Online using Patient Portal and [employer]rd [employer] Apps Indication:Non-smoker Start:20-Feb-2020 Instruction Type:Patient Education Patient Instructions Indication:Non-smoker Start:20-Feb-2020 Instruction Type:Provider Instructions for Treatment obesity counseling Indication:Diabetes mellitus type II, controlled Start:06-Dec-2019 Instruction Type:Provider Instructions for Treatment cardiovascular counseling Indication:Coronary artery disease Start:06-Dec-2019 Instruction Type:Provider Instructions for Treatment How to access health informa tion online Indication:BMI 32.0-32.9,adult Start:06-Dec-2019 Instruction Type:Patient Education How to access health informa tion online - Detail Indication:BMI 32.0-32.9,adult Start:06-Dec-2019 Instruction Type:Patient Education Patient Instructions Indication:BMI 32.0-32.9,adult Start:06-Dec-2019 Instruction Type:Provider Instructions for Treatment How to access health informa tion online Indication:Non-smoker Start:19-Nov-2019 Instruction Type:Patient Education How to access health informa tion online - Detail Indication:Non-smoker Start:19-Nov-2019 Instruction Type:Patient Education Patient Instructions Indication:Non-smoker Start:19-Nov-2019 Instruction Type:Provider Instructions for Treatment How to access health informa tion online Indication:Non-smoker Start:16-Aug-2019 Instruction Type:Patient Education How to access health informa tion online - Detail Indication:Non-smoker Start:16-Aug-2019 Instruction Type:Patient Education Patient Instructions Indication:Non-smoker Start:16-Aug-2019 Instruction Type:Provider Instructions for Treatment How to access health informa tion online Indication:Non-smoker Start:16-Apr-2019 Instruction Type:Patient Education How to access health informa tion online - Detail Indication:Non-smoker Start:16-Apr-2019 Instruction Type:Patient Education Patient Instructions Indication:Non-smoker Start:16-Apr-2019 Instruction Type:Provider Instructions for Treatment How to access health informa tion online Indication:Non-smoker Start:09-Feb-2019 Instruction Type:Patient Education How to access health informa tion online - Detail Indication:Non-smoker Start:09-Feb-2019 Instruction Type:Patient Education Patient Instructions Indication:BMI 32.0-32.9,adult Start:09-Feb-2019 Instruction Type:Provider Instructions for Treatment How to access health informa tion online Indication:Non-smoker Start:16-Aug-2018 Instruction Type:Patient Education How to access health informa tion online - Detail Indication:Non-smoker Start:16-Aug-2018 Instruction Type:Patient Education Patient Instructions Indication:Non-smoker Start:16-Aug-2018 Instruction Type:Provider Instructions for Treatment How to access health informa tion online Indication:BMI 32.0-32.9,adult Start:17-May-2018 Instruction Type:Patient Education How to access health informa tion online - Detail Indication:BMI 32.0-32.9,adult Start:17-May-2018 Instruction Type:Patient Education Patient Instructions Indication:BMI 32.0-32.9,adult Start:17-May-2018 Instruction Type:Provider Instructions for Treatment How to access health informa tion online Indication:Diabetes mellitus type II, controlled Start:21-Dec-2017 Instruction Type:Patient Education How to access health informa tion online - Detail Indication:Diabetes mellitus type II, controlled Start:21-Dec-2017 Instruction Type:Patient Education Patient Instructions Indication:Diabetes mellitus type II, controlled Start:21-Dec-2017 Instruction Type:Provider Instructions for Treatment How to access health informa tion online Indication:Diabetes mellitus type II, controlled Start:18-Aug-2017 Instruction Type:Patient Education How to access health informa tion online - Detail Indication:Diabetes mellitus type II, controlled Start:18-Aug-2017 Instruction Type:Patient Education Patient Instructions Indication:Diabetes mellitus type II, controlled Start:18-Aug-2017 Instruction Type:Provider Instructions for Treatment How to access health informa tion online Indication:Diabetes mellitus type II, controlled Start:21-Apr-2016 Instruction Type:Patient Education How to access health informa tion online - Detail Indication:Diabetes mellitus type II, controlled Start:21-Apr-2016 Instruction Type:Patient Education Patient Instructions Indication:Diabetes mellitus type II, controlled Start:21-Apr-2016 Instruction Type:Provider Instructions for Treatment How to access health informa tion online Indication:Hematuria Start:16-Feb-2016 Instruction Type:Patient Education How to access health informa tion online - Detail Indication:Hematuria Start:16-Feb-2016 Instruction Type:Patient Education Patient Instructions Indication:Hematuria Start:16-Feb-2016 Instruction Type:Provider Instructions for Treatment How to access health informa tion online Indication:Anxiety Start:09-Sep-2015 Instruction Type:Patient Education How to access health informa tion online - Detail Indication:Anxiety Start:09-Sep-2015 Instruction Type:Patient Education Patient Instructions Indication:Anxiety Start:09-Sep-2015 Instruction Type:Provider Instructions for Treatment How to access health informa tion online Indication:Anxiety Start:25-Jul-2015 Instruction Type:Patient Education How to access health informa tion online - Detail Indication:Anxiety Start:25-Jul-2015 Instruction Type:Patient Education Patient Instructions Indication:Anxiety Start:25-Jul-2015 Instruction Type:Provider Instructions for Treatment How to access health informa tion online Indication:Diabetes mellitus type II, controlled Start:03-Feb-2015 Instruction Type:Patient Education How to access health informa tion online - Detail Indication:Diabetes mellitus type II, controlled Start:03-Feb-2015 Instruction Type:Patient Education Patient Instructions Indication:Diabetes mellitus type II, controlled Start:03-Feb-2015 Instruction Type:Provider Instructions for Treatment How to access health informa tion online Indication:Contact dermatitis, contact dermatitis due to unspecified agent, unspecified contact dermatitis Start:09-Jan-2015 Instruction Type:Patient Education How to access health informa tion online - Detail Indication:Contact dermatitis, contact dermatitis due to unspecified agent, unspecified contact dermatitis Start:09-Jan-2015 Instruction Type:Patient Education Patient Instructions Indication:Contact dermatitis, contact dermatitis due to unspecified agent, unspecified contact dermatitis Start:09-Jan-2015 Instruction Type:Provider Instructions for Treatment How to access health informa tion online Indication:Diabetes mellitus type II, controlled Start:27-Aug-2014 Instruction Type:Patient Education How to access health informa tion online - Detail Indication:Diabetes mellitus type II, controlled Start:27-Aug-2014 Instruction Type:Patient Education Patient Instructions Indication:Diabetes mellitus type II, controlled Start:27-Aug-2014 Instruction Type:Provider Instructions for Treatment How to access health informa tion online - Detail Indication:Diabetes mellitus type II, controlled Start:30-Jul-2014 Instruction Type:Patient Education How to access health informa tion online Indication:Diabetes mellitus type II, controlled Start:30-Jul-2014 Instruction Type:Patient Education Patient Instructions Indication:Diabetes mellitus type II, controlled Start:30-Jul-2014 Instruction Type:Provider Instructions for Treatment Patient Instructions Indication:Diabetes mellitus type II, controlled Start:19-Dec-2012 Instruction Type:Provider Instructions for Treatment Patient Instructions Indication:Diabetes mellitus type II, controlled Start:11-Feb-2012 Instruction Type:Provider Instructions for Treatment [facility]; [facility] Work Phone: Instructions* Name Dates Details Patient Instructions Indication:UTI (urinary tract infection), bacterial Start:07-Jan-2022 Instruction Type:Provider Instructions for Treatment How to Access Health Informa tion Online using Patient Portal and [employer]rd [employer] Apps Indication:UTI (urinary tract infection), bacterial Start:07-Jan-2022 Instruction Type:Patient Education Patient Instructions Indication:Urinary frequency Start:03-Dec-2021 Instruction Type:Provider Instructions for Treatment How to Access Health Informa tion Online using Patient Portal and [employer]rd [employer] Apps Indication:Urinary frequency Start:03-Dec-2021 Instruction Type:Patient Education Patient Instructions Indication:Diabetes mellitus type II, controlled Start:06-Nov-2021 Instruction Type:Provider Instructions for Treatment How to Access Health Informa tion Online using Patient Portal and [employer] Apps Indication:Diabetes mellitus type II, controlled Start:06-Nov-2021 Instruction Type:Patient Education obesity counseling Indication:Diabetes mellitus type II, controlled Start:05-Aug-2021 Instruction Type:Provider Instructions for Treatment cardiovascular counseling Indication:Coronary artery disease Start:05-Aug-2021 Instruction Type:Provider Instructions for Treatment Patient Instructions Indication:BMI 31.0-31.9,adult Start:05-Aug-2021 Instruction Type:Provider Instructions for Treatment How to Access Health Informa tion Online using Patient Portal and [employer] Apps Indication:BMI 31.0-31.9,adult Start:05-Aug-2021 Instruction Type:Patient Education Patient Instructions Indication:BMI 32.0-32.9,adult Start:09-Apr-2021 Instruction Type:Provider Instructions for Treatment How to Access Health Informa tion Online using Patient Portal and [employer] Apps Indication:BMI 32.0-32.9,adult Start:09-Apr-2021 Instruction Type:Patient Education Patient Instructions Indication:BMI 32.0-32.9,adult Start:08-Jan-2021 Instruction Type:Provider Instructions for Treatment How to Access Health Informa tion Online using Patient Portal and [employer] Apps Indication:BMI 32.0-32.9,adult Start:08-Jan-2021 Instruction Type:Patient Education Patient Instructions Indication:BMI 32.0-32.9,adult Start:08-Sep-2020 Instruction Type:Provider Instructions for Treatment How to Access Health Informa tion Online using Patient Portal and [employer] Apps Indication:BMI 32.0-32.9,adult Start:08-Sep-2020 Instruction Type:Patient Education How to Access Health Informa tion Online using Patient Portal and [employer] Apps Indication:Non-smoker Start:05-Jun-2020 Instruction Type:Patient Education Patient Instructions Indication:Non-smoker Start:05-Jun-2020 Instruction Type:Provider Instructions for Treatment How to Access Health Informa tion Online using Patient Portal and [employer]rd [employer] Apps Indication:Non-smoker Start:20-Feb-2020 Instruction Type:Patient Education Patient Instructions Indication:Non-smoker Start:20-Feb-2020 Instruction Type:Provider Instructions for Treatment obesity counseling Indication:Diabetes mellitus type II, controlled Start:06-Dec-2019 Instruction Type:Provider Instructions for Treatment cardiovascular counseling Indication:Coronary artery disease Start:06-Dec-2019 Instruction Type:Provider Instructions for Treatment How to access health informa tion online Indication:BMI 32.0-32.9,adult Start:06-Dec-2019 Instruction Type:Patient Education How to access health informa tion online - Detail Indication:BMI 32.0-32.9,adult Start:06-Dec-2019 Instruction Type:Patient Education Patient Instructions Indication:BMI 32.0-32.9,adult Start:06-Dec-2019 Instruction Type:Provider Instructions for Treatment How to access health informa tion online Indication:Non-smoker Start:19-Nov-2019 Instruction Type:Patient Education How to access health informa tion online - Detail Indication:Non-smoker Start:19-Nov-2019 Instruction Type:Patient Education Patient Instructions Indication:Non-smoker Start:19-Nov-2019 Instruction Type:Provider Instructions for Treatment How to access health informa tion online Indication:Non-smoker Start:16-Aug-2019 Instruction Type:Patient Education How to access health informa tion online - Detail Indication:Non-smoker Start:16-Aug-2019 Instruction Type:Patient Education Patient Instructions Indication:Non-smoker Start:16-Aug-2019 Instruction Type:Provider Instructions for Treatment How to access health informa tion online Indication:Non-smoker Start:16-Apr-2019 Instruction Type:Patient Education How to access health informa tion online - Detail Indication:Non-smoker Start:16-Apr-2019 Instruction Type:Patient Education Patient Instructions Indication:Non-smoker Start:16-Apr-2019 Instruction Type:Provider Instructions for Treatment How to access health informa tion online Indication:Non-smoker Start:09-Feb-2019 Instruction Type:Patient Education How to access health informa tion online - Detail Indication:Non-smoker Start:09-Feb-2019 Instruction Type:Patient Education Patient Instructions Indication:BMI 32.0-32.9,adult Start:09-Feb-2019 Instruction Type:Provider Instructions for Treatment How to access health informa tion online Indication:Non-smoker Start:16-Aug-2018 Instruction Type:Patient Education How to access health informa tion online - Detail Indication:Non-smoker Start:16-Aug-2018 Instruction Type:Patient Education Patient Instructions Indication:Non-smoker Start:16-Aug-2018 Instruction Type:Provider Instructions for Treatment How to access health informa tion online Indication:BMI 32.0-32.9,adult Start:17-May-2018 Instruction Type:Patient Education How to access health informa tion online - Detail Indication:BMI 32.0-32.9,adult Start:17-May-2018 Instruction Type:Patient Education Patient Instructions Indication:BMI 32.0-32.9,adult Start:17-May-2018 Instruction Type:Provider Instructions for Treatment How to access health informa tion online Indication:Diabetes mellitus type II, controlled Start:21-Dec-2017 Instruction Type:Patient Education How to access health informa tion online - Detail Indication:Diabetes mellitus type II, controlled Start:21-Dec-2017 Instruction Type:Patient Education Patient Instructions Indication:Diabetes mellitus type II, controlled Start:21-Dec-2017 Instruction Type:Provider Instructions for Treatment How to access health informa tion online Indication:Diabetes mellitus type II, controlled Start:18-Aug-2017 Instruction Type:Patient Education How to access health informa tion online - Detail Indication:Diabetes mellitus type II, controlled Start:18-Aug-2017 Instruction Type:Patient Education Patient Instructions Indication:Diabetes mellitus type II, controlled Start:18-Aug-2017 Instruction Type:Provider Instructions for Treatment How to access health informa tion online Indication:Diabetes mellitus type II, controlled Start:21-Apr-2016 Instruction Type:Patient Education How to access health informa tion online - Detail Indication:Diabetes mellitus type II, controlled Start:21-Apr-2016 Instruction Type:Patient Education Patient Instructions Indication:Diabetes mellitus type II, controlled Start:21-Apr-2016 Instruction Type:Provider Instructions for Treatment How to access health informa tion online Indication:Hematuria Start:16-Feb-2016 Instruction Type:Patient Education How to access health informa tion online - Detail Indication:Hematuria Start:16-Feb-2016 Instruction Type:Patient Education Patient Instructions Indication:Hematuria Start:16-Feb-2016 Instruction Type:Provider Instructions for Treatment How to access health informa tion online Indication:Anxiety Start:09-Sep-2015 Instruction Type:Patient Education How to access health informa tion online - Detail Indication:Anxiety Start:09-Sep-2015 Instruction Type:Patient Education Patient Instructions Indication:Anxiety Start:09-Sep-2015 Instruction Type:Provider Instructions for Treatment How to access health informa tion online Indication:Anxiety Start:25-Jul-2015 Instruction Type:Patient Education How to access health informa tion online - Detail Indication:Anxiety Start:25-Jul-2015 Instruction Type:Patient Education Patient Instructions Indication:Anxiety Start:25-Jul-2015 Instruction Type:Provider Instructions for Treatment How to access health informa tion online Indication:Diabetes mellitus type II, controlled Start:03-Feb-2015 Instruction Type:Patient Education How to access health informa tion online - Detail Indication:Diabetes mellitus type II, controlled Start:03-Feb-2015 Instruction Type:Patient Education Patient Instructions Indication:Diabetes mellitus type II, controlled Start:03-Feb-2015 Instruction Type:Provider Instructions for Treatment How to access health informa tion online Indication:Contact dermatitis, contact dermatitis due to unspecified agent, unspecified contact dermatitis Start:09-Jan-2015 Instruction Type:Patient Education How to access health informa tion online - Detail Indication:Contact dermatitis, contact dermatitis due to unspecified agent, unspecified contact dermatitis Start:09-Jan-2015 Instruction Type:Patient Education Patient Instructions Indication:Contact dermatitis, contact dermatitis due to unspecified agent, unspecified contact dermatitis Start:09-Jan-2015 Instruction Type:Provider Instructions for Treatment How to access health informa tion online Indication:Diabetes mellitus type II, controlled Start:27-Aug-2014 Instruction Type:Patient Education How to access health informa tion online - Detail Indication:Diabetes mellitus type II, controlled Start:27-Aug-2014 Instruction Type:Patient Education Patient Instructions Indication:Diabetes mellitus type II, controlled Start:27-Aug-2014 Instruction Type:Provider Instructions for Treatment How to access health informa tion online - Detail Indication:Diabetes mellitus type II, controlled Start:30-Jul-2014 Instruction Type:Patient Education How to access health informa tion online Indication:Diabetes mellitus type II, controlled Start:30-Jul-2014 Instruction Type:Patient Education Patient Instructions Indication:Diabetes mellitus type II, controlled Start:30-Jul-2014 Instruction Type:Provider Instructions for Treatment Patient Instructions Indication:Diabetes mellitus type II, controlled Start:19-Dec-2012 Instruction Type:Provider Instructions for Treatment Patient Instructions Indication:Diabetes mellitus type II, controlled Start:11-Feb-2012 Instruction Type:Provider Instructions for Treatment [facility] Work Phone: Instructions* Name Dates Details Patient Instructions Indication:UTI (urinary tract infection), bacterial Start:07-Jan-2022 Instruction Type:Provider Instructions for Treatment How to Access Health Informa tion Online using Patient Portal and [employer] Apps Indication:UTI (urinary tract infection), bacterial Start:07-Jan-2022 Instruction Type:Patient Education Patient Instructions Indication:Urinary frequency Start:03-Dec-2021 Instruction Type:Provider Instructions for Treatment How to Access Health Informa tion Online using Patient Portal and [employer]rd [employer] Apps Indication:Urinary frequency Start:03-Dec-2021 Instruction Type:Patient Education Patient Instructions Indication:Diabetes mellitus type II, controlled Start:06-Nov-2021 Instruction Type:Provider Instructions for Treatment How to Access Health Informa tion Online using Patient Portal and [employer]rd [employer] Apps Indication:Diabetes mellitus type II, controlled Start:06-Nov-2021 Instruction Type:Patient Education obesity counseling Indication:Diabetes mellitus type II, controlled Start:05-Aug-2021 Instruction Type:Provider Instructions for Treatment cardiovascular counseling Indication:Coronary artery disease Start:05-Aug-2021 Instruction Type:Provider Instructions for Treatment Patient Instructions Indication:BMI 31.0-31.9,adult Start:05-Aug-2021 Instruction Type:Provider Instructions for Treatment How to Access Health Informa tion Online using Patient Portal and [employer]rd [employer] Apps Indication:BMI 31.0-31.9,adult Start:05-Aug-2021 Instruction Type:Patient Education Patient Instructions Indication:BMI 32.0-32.9,adult Start:09-Apr-2021 Instruction Type:Provider Instructions for Treatment How to Access Health Informa tion Online using Patient Portal and [employer] Apps Indication:BMI 32.0-32.9,adult Start:09-Apr-2021 Instruction Type:Patient Education Patient Instructions Indication:BMI 32.0-32.9,adult Start:08-Jan-2021 Instruction Type:Provider Instructions for Treatment How to Access Health Informa tion Online using Patient Portal and [employer] Apps Indication:BMI 32.0-32.9,adult Start:08-Jan-2021 Instruction Type:Patient Education Patient Instructions Indication:BMI 32.0-32.9,adult Start:08-Sep-2020 Instruction Type:Provider Instructions for Treatment How to Access Health Informa tion Online using Patient Portal and [employer]rd [employer] Apps Indication:BMI 32.0-32.9,adult Start:08-Sep-2020 Instruction Type:Patient Education How to Access Health Informa tion Online using Patient Portal and [employer] Apps Indication:Non-smoker Start:05-Jun-2020 Instruction Type:Patient Education Patient Instructions Indication:Non-smoker Start:05-Jun-2020 Instruction Type:Provider Instructions for Treatment How to Access Health Informa tion Online using Patient Portal and [employer]rd [employer] Apps Indication:Non-smoker Start:20-Feb-2020 Instruction Type:Patient Education Patient Instructions Indication:Non-smoker Start:20-Feb-2020 Instruction Type:Provider Instructions for Treatment obesity counseling Indication:Diabetes mellitus type II, controlled Start:06-Dec-2019 Instruction Type:Provider Instructions for Treatment cardiovascular counseling Indication:Coronary artery disease Start:06-Dec-2019 Instruction Type:Provider Instructions for Treatment How to access health informa tion online Indication:BMI 32.0-32.9,adult Start:06-Dec-2019 Instruction Type:Patient Education How to access health informa tion online - Detail Indication:BMI 32.0-32.9,adult Start:06-Dec-2019 Instruction Type:Patient Education Patient Instructions Indication:BMI 32.0-32.9,adult Start:06-Dec-2019 Instruction Type:Provider Instructions for Treatment How to access health informa tion online Indication:Non-smoker Start:19-Nov-2019 Instruction Type:Patient Education How to access health informa tion online - Detail Indication:Non-smoker Start:19-Nov-2019 Instruction Type:Patient Education Patient Instructions Indication:Non-smoker Start:19-Nov-2019 Instruction Type:Provider Instructions for Treatment How to access health informa tion online Indication:Non-smoker Start:16-Aug-2019 Instruction Type:Patient Education How to access health informa tion online - Detail Indication:Non-smoker Start:16-Aug-2019 Instruction Type:Patient Education Patient Instructions Indication:Non-smoker Start:16-Aug-2019 Instruction Type:Provider Instructions for Treatment How to access health informa tion online Indication:Non-smoker Start:16-Apr-2019 Instruction Type:Patient Education How to access health informa tion online - Detail Indication:Non-smoker Start:16-Apr-2019 Instruction Type:Patient Education Patient Instructions Indication:Non-smoker Start:16-Apr-2019 Instruction Type:Provider Instructions for Treatment How to access health informa tion online Indication:Non-smoker Start:09-Feb-2019 Instruction Type:Patient Education How to access health informa tion online - Detail Indication:Non-smoker Start:09-Feb-2019 Instruction Type:Patient Education Patient Instructions Indication:BMI 32.0-32.9,adult Start:09-Feb-2019 Instruction Type:Provider Instructions for Treatment How to access health informa tion online Indication:Non-smoker Start:16-Aug-2018 Instruction Type:Patient Education How to access health informa tion online - Detail Indication:Non-smoker Start:16-Aug-2018 Instruction Type:Patient Education Patient Instructions Indication:Non-smoker Start:16-Aug-2018 Instruction Type:Provider Instructions for Treatment How to access health informa tion online Indication:BMI 32.0-32.9,adult Start:17-May-2018 Instruction Type:Patient Education How to access health informa tion online - Detail Indication:BMI 32.0-32.9,adult Start:17-May-2018 Instruction Type:Patient Education Patient Instructions Indication:BMI 32.0-32.9,adult Start:17-May-2018 Instruction Type:Provider Instructions for Treatment How to access health informa tion online Indication:Diabetes mellitus type II, controlled Start:21-Dec-2017 Instruction Type:Patient Education How to access health informa tion online - Detail Indication:Diabetes mellitus type II, controlled Start:21-Dec-2017 Instruction Type:Patient Education Patient Instructions Indication:Diabetes mellitus type II, controlled Start:21-Dec-2017 Instruction Type:Provider Instructions for Treatment How to access health informa tion online Indication:Diabetes mellitus type II, controlled Start:18-Aug-2017 Instruction Type:Patient Education How to access health informa tion online - Detail Indication:Diabetes mellitus type II, controlled Start:18-Aug-2017 Instruction Type:Patient Education Patient Instructions Indication:Diabetes mellitus type II, controlled Start:18-Aug-2017 Instruction Type:Provider Instructions for Treatment How to access health informa tion online Indication:Diabetes mellitus type II, controlled Start:21-Apr-2016 Instruction Type:Patient Education How to access health informa tion online - Detail Indication:Diabetes mellitus type II, controlled Start:21-Apr-2016 Instruction Type:Patient Education Patient Instructions Indication:Diabetes mellitus type II, controlled Start:21-Apr-2016 Instruction Type:Provider Instructions for Treatment How to access health informa tion online Indication:Hematuria Start:16-Feb-2016 Instruction Type:Patient Education How to access health informa tion online - Detail Indication:Hematuria Start:16-Feb-2016 Instruction Type:Patient Education Patient Instructions Indication:Hematuria Start:16-Feb-2016 Instruction Type:Provider Instructions for Treatment How to access health informa tion online Indication:Anxiety Start:09-Sep-2015 Instruction Type:Patient Education How to access health informa tion online - Detail Indication:Anxiety Start:09-Sep-2015 Instruction Type:Patient Education Patient Instructions Indication:Anxiety Start:09-Sep-2015 Instruction Type:Provider Instructions for Treatment How to access health informa tion online Indication:Anxiety Start:25-Jul-2015 Instruction Type:Patient Education How to access health informa tion online - Detail Indication:Anxiety Start:25-Jul-2015 Instruction Type:Patient Education Patient Instructions Indication:Anxiety Start:25-Jul-2015 Instruction Type:Provider Instructions for Treatment How to access health informa tion online Indication:Diabetes mellitus type II, controlled Start:03-Feb-2015 Instruction Type:Patient Education How to access health informa tion online - Detail Indication:Diabetes mellitus type II, controlled Start:03-Feb-2015 Instruction Type:Patient Education Patient Instructions Indication:Diabetes mellitus type II, controlled Start:03-Feb-2015 Instruction Type:Provider Instructions for Treatment How to access health informa tion online Indication:Contact dermatitis, contact dermatitis due to unspecified agent, unspecified contact dermatitis Start:09-Jan-2015 Instruction Type:Patient Education How to access health informa tion online - Detail Indication:Contact dermatitis, contact dermatitis due to unspecified agent, unspecified contact dermatitis Start:09-Jan-2015 Instruction Type:Patient Education Patient Instructions Indication:Contact dermatitis, contact dermatitis due to unspecified agent, unspecified contact dermatitis Start:09-Jan-2015 Instruction Type:Provider Instructions for Treatment How to access health informa tion online Indication:Diabetes mellitus type II, controlled Start:27-Aug-2014 Instruction Type:Patient Education How to access health informa tion online - Detail Indication:Diabetes mellitus type II, controlled Start:27-Aug-2014 Instruction Type:Patient Education Patient Instructions Indication:Diabetes mellitus type II, controlled Start:27-Aug-2014 Instruction Type:Provider Instructions for Treatment How to access health informa tion online - Detail Indication:Diabetes mellitus type II, controlled Start:30-Jul-2014 Instruction Type:Patient Education How to access health informa tion online Indication:Diabetes mellitus type II, controlled Start:30-Jul-2014 Instruction Type:Patient Education Patient Instructions Indication:Diabetes mellitus type II, controlled Start:30-Jul-2014 Instruction Type:Provider Instructions for Treatment Patient Instructions Indication:Diabetes mellitus type II, controlled Start:19-Dec-2012 Instruction Type:Provider Instructions for Treatment Patient Instructions Indication:Diabetes mellitus type II, controlled Start:11-Feb-2012 Instruction Type:Provider Instructions for Treatment [facility]; [facility] Work Phone: Instructions* Name Dates Details Patient Instructions Indication:UTI (urinary tract infection), bacterial Start:07-Jan-2022 Instruction Type:Provider Instructions for Treatment How to Access Health Informa tion Online using Patient Portal and [employer] Apps Indication:UTI (urinary tract infection), bacterial Start:07-Jan-2022 Instruction Type:Patient Education Patient Instructions Indication:Urinary frequency Start:03-Dec-2021 Instruction Type:Provider Instructions for Treatment How to Access Health Informa tion Online using Patient Portal and [employer] Apps Indication:Urinary frequency Start:03-Dec-2021 Instruction Type:Patient Education Patient Instructions Indication:Diabetes mellitus type II, controlled Start:06-Nov-2021 Instruction Type:Provider Instructions for Treatment How to Access Health Informa tion Online using Patient Portal and [employer] Apps Indication:Diabetes mellitus type II, controlled Start:06-Nov-2021 Instruction Type:Patient Education obesity counseling Indication:Diabetes mellitus type II, controlled Start:05-Aug-2021 Instruction Type:Provider Instructions for Treatment cardiovascular counseling Indication:Coronary artery disease Start:05-Aug-2021 Instruction Type:Provider Instructions for Treatment Patient Instructions Indication:BMI 31.0-31.9,adult Start:05-Aug-2021 Instruction Type:Provider Instructions for Treatment How to Access Health Informa tion Online using Patient Portal and [employer] Apps Indication:BMI 31.0-31.9,adult Start:05-Aug-2021 Instruction Type:Patient Education Patient Instructions Indication:BMI 32.0-32.9,adult Start:09-Apr-2021 Instruction Type:Provider Instructions for Treatment How to Access Health Informa tion Online using Patient Portal and [employer] Apps Indication:BMI 32.0-32.9,adult Start:09-Apr-2021 Instruction Type:Patient Education Patient Instructions Indication:BMI 32.0-32.9,adult Start:08-Jan-2021 Instruction Type:Provider Instructions for Treatment How to Access Health Informa tion Online using Patient Portal and [employer] Apps Indication:BMI 32.0-32.9,adult Start:08-Jan-2021 Instruction Type:Patient Education Patient Instructions Indication:BMI 32.0-32.9,adult Start:08-Sep-2020 Instruction Type:Provider Instructions for Treatment How to Access Health Informa tion Online using Patient Portal and [employer] Apps Indication:BMI 32.0-32.9,adult Start:08-Sep-2020 Instruction Type:Patient Education How to Access Health Informa tion Online using Patient Portal and [employer] Apps Indication:Non-smoker Start:05-Jun-2020 Instruction Type:Patient Education Patient Instructions Indication:Non-smoker Start:05-Jun-2020 Instruction Type:Provider Instructions for Treatment How to Access Health Informa tion Online using Patient Portal and [employer] Apps Indication:Non-smoker Start:20-Feb-2020 Instruction Type:Patient Education Patient Instructions Indication:Non-smoker Start:20-Feb-2020 Instruction Type:Provider Instructions for Treatment obesity counseling Indication:Diabetes mellitus type II, controlled Start:06-Dec-2019 Instruction Type:Provider Instructions for Treatment cardiovascular counseling Indication:Coronary artery disease Start:06-Dec-2019 Instruction Type:Provider Instructions for Treatment How to access health informa tion online Indication:BMI 32.0-32.9,adult Start:06-Dec-2019 Instruction Type:Patient Education How to access health informa tion online - Detail Indication:BMI 32.0-32.9,adult Start:06-Dec-2019 Instruction Type:Patient Education Patient Instructions Indication:BMI 32.0-32.9,adult Start:06-Dec-2019 Instruction Type:Provider Instructions for Treatment How to access health informa tion online Indication:Non-smoker Start:19-Nov-2019 Instruction Type:Patient Education How to access health informa tion online - Detail Indication:Non-smoker Start:19-Nov-2019 Instruction Type:Patient Education Patient Instructions Indication:Non-smoker Start:19-Nov-2019 Instruction Type:Provider Instructions for Treatment How to access health informa tion online Indication:Non-smoker Start:16-Aug-2019 Instruction Type:Patient Education How to access health informa tion online - Detail Indication:Non-smoker Start:16-Aug-2019 Instruction Type:Patient Education Patient Instructions Indication:Non-smoker Start:16-Aug-2019 Instruction Type:Provider Instructions for Treatment How to access health informa tion online Indication:Non-smoker Start:16-Apr-2019 Instruction Type:Patient Education How to access health informa tion online - Detail Indication:Non-smoker Start:16-Apr-2019 Instruction Type:Patient Education Patient Instructions Indication:Non-smoker Start:16-Apr-2019 Instruction Type:Provider Instructions for Treatment How to access health informa tion online Indication:Non-smoker Start:09-Feb-2019 Instruction Type:Patient Education How to access health informa tion online - Detail Indication:Non-smoker Start:09-Feb-2019 Instruction Type:Patient Education Patient Instructions Indication:BMI 32.0-32.9,adult Start:09-Feb-2019 Instruction Type:Provider Instructions for Treatment How to access health informa tion online Indication:Non-smoker Start:16-Aug-2018 Instruction Type:Patient Education How to access health informa tion online - Detail Indication:Non-smoker Start:16-Aug-2018 Instruction Type:Patient Education Patient Instructions Indication:Non-smoker Start:16-Aug-2018 Instruction Type:Provider Instructions for Treatment How to access health informa tion online Indication:BMI 32.0-32.9,adult Start:17-May-2018 Instruction Type:Patient Education How to access health informa tion online - Detail Indication:BMI 32.0-32.9,adult Start:17-May-2018 Instruction Type:Patient Education Patient Instructions Indication:BMI 32.0-32.9,adult Start:17-May-2018 Instruction Type:Provider Instructions for Treatment How to access health informa tion online Indication:Diabetes mellitus type II, controlled Start:21-Dec-2017 Instruction Type:Patient Education How to access health informa tion online - Detail Indication:Diabetes mellitus type II, controlled Start:21-Dec-2017 Instruction Type:Patient Education Patient Instructions Indication:Diabetes mellitus type II, controlled Start:21-Dec-2017 Instruction Type:Provider Instructions for Treatment How to access health informa tion online Indication:Diabetes mellitus type II, controlled Start:18-Aug-2017 Instruction Type:Patient Education How to access health informa tion online - Detail Indication:Diabetes mellitus type II, controlled Start:18-Aug-2017 Instruction Type:Patient Education Patient Instructions Indication:Diabetes mellitus type II, controlled Start:18-Aug-2017 Instruction Type:Provider Instructions for Treatment How to access health informa tion online Indication:Diabetes mellitus type II, controlled Start:21-Apr-2016 Instruction Type:Patient Education How to access health informa tion online - Detail Indication:Diabetes mellitus type II, controlled Start:21-Apr-2016 Instruction Type:Patient Education Patient Instructions Indication:Diabetes mellitus type II, controlled Start:21-Apr-2016 Instruction Type:Provider Instructions for Treatment How to access health informa tion online Indication:Hematuria Start:16-Feb-2016 Instruction Type:Patient Education How to access health informa tion online - Detail Indication:Hematuria Start:16-Feb-2016 Instruction Type:Patient Education Patient Instructions Indication:Hematuria Start:16-Feb-2016 Instruction Type:Provider Instructions for Treatment How to access health informa tion online Indication:Anxiety Start:09-Sep-2015 Instruction Type:Patient Education How to access health informa tion online - Detail Indication:Anxiety Start:09-Sep-2015 Instruction Type:Patient Education Patient Instructions Indication:Anxiety Start:09-Sep-2015 Instruction Type:Provider Instructions for Treatment How to access health informa tion online Indication:Anxiety Start:25-Jul-2015 Instruction Type:Patient Education How to access health informa tion online - Detail Indication:Anxiety Start:25-Jul-2015 Instruction Type:Patient Education Patient Instructions Indication:Anxiety Start:25-Jul-2015 Instruction Type:Provider Instructions for Treatment How to access health informa tion online Indication:Diabetes mellitus type II, controlled Start:03-Feb-2015 Instruction Type:Patient Education How to access health informa tion online - Detail Indication:Diabetes mellitus type II, controlled Start:03-Feb-2015 Instruction Type:Patient Education Patient Instructions Indication:Diabetes mellitus type II, controlled Start:03-Feb-2015 Instruction Type:Provider Instructions for Treatment How to access health informa tion online Indication:Contact dermatitis, contact dermatitis due to unspecified agent, unspecified contact dermatitis Start:09-Jan-2015 Instruction Type:Patient Education How to access health informa tion online - Detail Indication:Contact dermatitis, contact dermatitis due to unspecified agent, unspecified contact dermatitis Start:09-Jan-2015 Instruction Type:Patient Education Patient Instructions Indication:Contact dermatitis, contact dermatitis due to unspecified agent, unspecified contact dermatitis Start:09-Jan-2015 Instruction Type:Provider Instructions for Treatment How to access health informa tion online Indication:Diabetes mellitus type II, controlled Start:27-Aug-2014 Instruction Type:Patient Education How to access health informa tion online - Detail Indication:Diabetes mellitus type II, controlled Start:27-Aug-2014 Instruction Type:Patient Education Patient Instructions Indication:Diabetes mellitus type II, controlled Start:27-Aug-2014 Instruction Type:Provider Instructions for Treatment How to access health informa tion online - Detail Indication:Diabetes mellitus type II, controlled Start:30-Jul-2014 Instruction Type:Patient Education How to access health informa tion online Indication:Diabetes mellitus type II, controlled Start:30-Jul-2014 Instruction Type:Patient Education Patient Instructions Indication:Diabetes mellitus type II, controlled Start:30-Jul-2014 Instruction Type:Provider Instructions for Treatment Patient Instructions Indication:Diabetes mellitus type II, controlled Start:19-Dec-2012 Instruction Type:Provider Instructions for Treatment Patient Instructions Indication:Diabetes mellitus type II, controlled Start:11-Feb-2012 Instruction Type:Provider Instructions for Treatment [facility]; [facility] Work Phone: Instructions* Name Dates Details Patient Instructions Indication:UTI (urinary tract infection), bacterial Start:07-Jan-2022 Instruction Type:Provider Instructions for Treatment How to Access Health Informa tion Online using Patient Portal and [employer] Apps Indication:UTI (urinary tract infection), bacterial Start:07-Jan-2022 Instruction Type:Patient Education Patient Instructions Indication:Urinary frequency Start:03-Dec-2021 Instruction Type:Provider Instructions for Treatment How to Access Health Informa tion Online using Patient Portal and [employer] Apps Indication:Urinary frequency Start:03-Dec-2021 Instruction Type:Patient Education Patient Instructions Indication:Diabetes mellitus type II, controlled Start:06-Nov-2021 Instruction Type:Provider Instructions for Treatment How to Access Health Informa tion Online using Patient Portal and [employer] Apps Indication:Diabetes mellitus type II, controlled Start:06-Nov-2021 Instruction Type:Patient Education obesity counseling Indication:Diabetes mellitus type II, controlled Start:05-Aug-2021 Instruction Type:Provider Instructions for Treatment cardiovascular counseling Indication:Coronary artery disease Start:05-Aug-2021 Instruction Type:Provider Instructions for Treatment Patient Instructions Indication:BMI 31.0-31.9,adult Start:05-Aug-2021 Instruction Type:Provider Instructions for Treatment How to Access Health Informa tion Online using Patient Portal and [employer] Apps Indication:BMI 31.0-31.9,adult Start:05-Aug-2021 Instruction Type:Patient Education Patient Instructions Indication:BMI 32.0-32.9,adult Start:09-Apr-2021 Instruction Type:Provider Instructions for Treatment How to Access Health Informa tion Online using Patient Portal and [employer] Apps Indication:BMI 32.0-32.9,adult Start:09-Apr-2021 Instruction Type:Patient Education Patient Instructions Indication:BMI 32.0-32.9,adult Start:08-Jan-2021 Instruction Type:Provider Instructions for Treatment How to Access Health Informa tion Online using Patient Portal and [employer] Apps Indication:BMI 32.0-32.9,adult Start:08-Jan-2021 Instruction Type:Patient Education Patient Instructions Indication:BMI 32.0-32.9,adult Start:08-Sep-2020 Instruction Type:Provider Instructions for Treatment How to Access Health Informa tion Online using Patient Portal and [employer] Apps Indication:BMI 32.0-32.9,adult Start:08-Sep-2020 Instruction Type:Patient Education How to Access Health Informa tion Online using Patient Portal and [employer] Apps Indication:Non-smoker Start:05-Jun-2020 Instruction Type:Patient Education Patient Instructions Indication:Non-smoker Start:05-Jun-2020 Instruction Type:Provider Instructions for Treatment How to Access Health Informa tion Online using Patient Portal and [employer] Apps Indication:Non-smoker Start:20-Feb-2020 Instruction Type:Patient Education Patient Instructions Indication:Non-smoker Start:20-Feb-2020 Instruction Type:Provider Instructions for Treatment obesity counseling Indication:Diabetes mellitus type II, controlled Start:06-Dec-2019 Instruction Type:Provider Instructions for Treatment cardiovascular counseling Indication:Coronary artery disease Start:06-Dec-2019 Instruction Type:Provider Instructions for Treatment How to access health informa tion online Indication:BMI 32.0-32.9,adult Start:06-Dec-2019 Instruction Type:Patient Education How to access health informa tion online - Detail Indication:BMI 32.0-32.9,adult Start:06-Dec-2019 Instruction Type:Patient Education Patient Instructions Indication:BMI 32.0-32.9,adult Start:06-Dec-2019 Instruction Type:Provider Instructions for Treatment How to access health informa tion online Indication:Non-smoker Start:19-Nov-2019 Instruction Type:Patient Education How to access health informa tion online - Detail Indication:Non-smoker Start:19-Nov-2019 Instruction Type:Patient Education Patient Instructions Indication:Non-smoker Start:19-Nov-2019 Instruction Type:Provider Instructions for Treatment How to access health informa tion online Indication:Non-smoker Start:16-Aug-2019 Instruction Type:Patient Education How to access health informa tion online - Detail Indication:Non-smoker Start:16-Aug-2019 Instruction Type:Patient Education Patient Instructions Indication:Non-smoker Start:16-Aug-2019 Instruction Type:Provider Instructions for Treatment How to access health informa tion online Indication:Non-smoker Start:16-Apr-2019 Instruction Type:Patient Education How to access health informa tion online - Detail Indication:Non-smoker Start:16-Apr-2019 Instruction Type:Patient Education Patient Instructions Indication:Non-smoker Start:16-Apr-2019 Instruction Type:Provider Instructions for Treatment How to access health informa tion online Indication:Non-smoker Start:09-Feb-2019 Instruction Type:Patient Education How to access health informa tion online - Detail Indication:Non-smoker Start:09-Feb-2019 Instruction Type:Patient Education Patient Instructions Indication:BMI 32.0-32.9,adult Start:09-Feb-2019 Instruction Type:Provider Instructions for Treatment How to access health informa tion online Indication:Non-smoker Start:16-Aug-2018 Instruction Type:Patient Education How to access health informa tion online - Detail Indication:Non-smoker Start:16-Aug-2018 Instruction Type:Patient Education Patient Instructions Indication:Non-smoker Start:16-Aug-2018 Instruction Type:Provider Instructions for Treatment How to access health informa tion online Indication:BMI 32.0-32.9,adult Start:17-May-2018 Instruction Type:Patient Education How to access health informa tion online - Detail Indication:BMI 32.0-32.9,adult Start:17-May-2018 Instruction Type:Patient Education Patient Instructions Indication:BMI 32.0-32.9,adult Start:17-May-2018 Instruction Type:Provider Instructions for Treatment How to access health informa tion online Indication:Diabetes mellitus type II, controlled Start:21-Dec-2017 Instruction Type:Patient Education How to access health informa tion online - Detail Indication:Diabetes mellitus type II, controlled Start:21-Dec-2017 Instruction Type:Patient Education Patient Instructions Indication:Diabetes mellitus type II, controlled Start:21-Dec-2017 Instruction Type:Provider Instructions for Treatment How to access health informa tion online Indication:Diabetes mellitus type II, controlled Start:18-Aug-2017 Instruction Type:Patient Education How to access health informa tion online - Detail Indication:Diabetes mellitus type II, controlled Start:18-Aug-2017 Instruction Type:Patient Education Patient Instructions Indication:Diabetes mellitus type II, controlled Start:18-Aug-2017 Instruction Type:Provider Instructions for Treatment How to access health informa tion online Indication:Diabetes mellitus type II, controlled Start:21-Apr-2016 Instruction Type:Patient Education How to access health informa tion online - Detail Indication:Diabetes mellitus type II, controlled Start:21-Apr-2016 Instruction Type:Patient Education Patient Instructions Indication:Diabetes mellitus type II, controlled Start:21-Apr-2016 Instruction Type:Provider Instructions for Treatment How to access health informa tion online Indication:Hematuria Start:16-Feb-2016 Instruction Type:Patient Education How to access health informa tion online - Detail Indication:Hematuria Start:16-Feb-2016 Instruction Type:Patient Education Patient Instructions Indication:Hematuria Start:16-Feb-2016 Instruction Type:Provider Instructions for Treatment How to access health informa tion online Indication:Anxiety Start:09-Sep-2015 Instruction Type:Patient Education How to access health informa tion online - Detail Indication:Anxiety Start:09-Sep-2015 Instruction Type:Patient Education Patient Instructions Indication:Anxiety Start:09-Sep-2015 Instruction Type:Provider Instructions for Treatment How to access health informa tion online Indication:Anxiety Start:25-Jul-2015 Instruction Type:Patient Education How to access health informa tion online - Detail Indication:Anxiety Start:25-Jul-2015 Instruction Type:Patient Education Patient Instructions Indication:Anxiety Start:25-Jul-2015 Instruction Type:Provider Instructions for Treatment How to access health informa tion online Indication:Diabetes mellitus type II, controlled Start:03-Feb-2015 Instruction Type:Patient Education How to access health informa tion online - Detail Indication:Diabetes mellitus type II, controlled Start:03-Feb-2015 Instruction Type:Patient Education Patient Instructions Indication:Diabetes mellitus type II, controlled Start:03-Feb-2015 Instruction Type:Provider Instructions for Treatment How to access health informa tion online Indication:Contact dermatitis, contact dermatitis due to unspecified agent, unspecified contact dermatitis Start:09-Jan-2015 Instruction Type:Patient Education How to access health informa tion online - Detail Indication:Contact dermatitis, contact dermatitis due to unspecified agent, unspecified contact dermatitis Start:09-Jan-2015 Instruction Type:Patient Education Patient Instructions Indication:Contact dermatitis, contact dermatitis due to unspecified agent, unspecified contact dermatitis Start:09-Jan-2015 Instruction Type:Provider Instructions for Treatment How to access health informa tion online Indication:Diabetes mellitus type II, controlled Start:27-Aug-2014 Instruction Type:Patient Education How to access health informa tion online - Detail Indication:Diabetes mellitus type II, controlled Start:27-Aug-2014 Instruction Type:Patient Education Patient Instructions Indication:Diabetes mellitus type II, controlled Start:27-Aug-2014 Instruction Type:Provider Instructions for Treatment How to access health informa tion online - Detail Indication:Diabetes mellitus type II, controlled Start:30-Jul-2014 Instruction Type:Patient Education How to access health informa tion online Indication:Diabetes mellitus type II, controlled Start:30-Jul-2014 Instruction Type:Patient Education Patient Instructions Indication:Diabetes mellitus type II, controlled Start:30-Jul-2014 Instruction Type:Provider Instructions for Treatment Patient Instructions Indication:Diabetes mellitus type II, controlled Start:19-Dec-2012 Instruction Type:Provider Instructions for Treatment Patient Instructions Indication:Diabetes mellitus type II, controlled Start:11-Feb-2012 Instruction Type:Provider Instructions for Treatment [facility]; [facility] Work Phone: Instructions* Name Dates Details Patient Instructions Indication:Non-smoker Start:25-Jan-2022 Instruction Type:Provider Instructions for Treatment How to Access Health Informa tion Online using Patient Portal and [employer] Indication:Non-smoker Start:25-Jan-2022 Instruction Type:Patient Education Patient Instructions Indication:UTI (urinary tract infection), bacterial Start:07-Jan-2022 Instruction Type:Provider Instructions for Treatment How to Access Health Informa tion Online using Patient Portal and [employer] Indication:UTI (urinary tract infection), bacterial Start:07-Jan-2022 Instruction Type:Patient Education Patient Instructions Indication:Urinary frequency Start:03-Dec-2021 Instruction Type:Provider Instructions for Treatment How to Access Health Informa tion Online using Patient Portal and [employer] Indication:Urinary frequency Start:03-Dec-2021 Instruction Type:Patient Education Patient Instructions Indication:Diabetes mellitus type II, controlled Start:06-Nov-2021 Instruction Type:Provider Instructions for Treatment How to Access Health Informa tion Online using Patient Portal and [employer] Apps Indication:Diabetes mellitus type II, controlled Start:06-Nov-2021 Instruction Type:Patient Education obesity counseling Indication:Diabetes mellitus type II, controlled Start:05-Aug-2021 Instruction Type:Provider Instructions for Treatment cardiovascular counseling Indication:Coronary artery disease Start:05-Aug-2021 Instruction Type:Provider Instructions for Treatment Patient Instructions Indication:BMI 31.0-31.9,adult Start:05-Aug-2021 Instruction Type:Provider Instructions for Treatment How to Access Health Informa tion Online using Patient Portal and [employer] Apps Indication:BMI 31.0-31.9,adult Start:05-Aug-2021 Instruction Type:Patient Education Patient Instructions Indication:BMI 32.0-32.9,adult Start:09-Apr-2021 Instruction Type:Provider Instructions for Treatment How to Access Health Informa tion Online using Patient Portal and [employer] Apps Indication:BMI 32.0-32.9,adult Start:09-Apr-2021 Instruction Type:Patient Education Patient Instructions Indication:BMI 32.0-32.9,adult Start:08-Jan-2021 Instruction Type:Provider Instructions for Treatment How to Access Health Informa tion Online using Patient Portal and [employer] Apps Indication:BMI 32.0-32.9,adult Start:08-Jan-2021 Instruction Type:Patient Education Patient Instructions Indication:BMI 32.0-32.9,adult Start:08-Sep-2020 Instruction Type:Provider Instructions for Treatment How to Access Health Informa tion Online using Patient Portal and [employer] Apps Indication:BMI 32.0-32.9,adult Start:08-Sep-2020 Instruction Type:Patient Education How to Access Health Informa tion Online using Patient Portal and [employer] Apps Indication:Non-smoker Start:05-Jun-2020 Instruction Type:Patient Education Patient Instructions Indication:Non-smoker Start:05-Jun-2020 Instruction Type:Provider Instructions for Treatment How to Access Health Informa tion Online using Patient Portal and [employer] Apps Indication:Non-smoker Start:20-Feb-2020 Instruction Type:Patient Education Patient Instructions Indication:Non-smoker Start:20-Feb-2020 Instruction Type:Provider Instructions for Treatment obesity counseling Indication:Diabetes mellitus type II, controlled Start:06-Dec-2019 Instruction Type:Provider Instructions for Treatment cardiovascular counseling Indication:Coronary artery disease Start:06-Dec-2019 Instruction Type:Provider Instructions for Treatment How to access health informa tion online Indication:BMI 32.0-32.9,adult Start:06-Dec-2019 Instruction Type:Patient Education How to access health informa tion online - Detail Indication:BMI 32.0-32.9,adult Start:06-Dec-2019 Instruction Type:Patient Education Patient Instructions Indication:BMI 32.0-32.9,adult Start:06-Dec-2019 Instruction Type:Provider Instructions for Treatment How to access health informa tion online Indication:Non-smoker Start:19-Nov-2019 Instruction Type:Patient Education How to access health informa tion online - Detail Indication:Non-smoker Start:19-Nov-2019 Instruction Type:Patient Education Patient Instructions Indication:Non-smoker Start:19-Nov-2019 Instruction Type:Provider Instructions for Treatment How to access health informa tion online Indication:Non-smoker Start:16-Aug-2019 Instruction Type:Patient Education How to access health informa tion online - Detail Indication:Non-smoker Start:16-Aug-2019 Instruction Type:Patient Education Patient Instructions Indication:Non-smoker Start:16-Aug-2019 Instruction Type:Provider Instructions for Treatment How to access health informa tion online Indication:Non-smoker Start:16-Apr-2019 Instruction Type:Patient Education How to access health informa tion online - Detail Indication:Non-smoker Start:16-Apr-2019 Instruction Type:Patient Education Patient Instructions Indication:Non-smoker Start:16-Apr-2019 Instruction Type:Provider Instructions for Treatment How to access health informa tion online Indication:Non-smoker Start:09-Feb-2019 Instruction Type:Patient Education How to access health informa tion online - Detail Indication:Non-smoker Start:09-Feb-2019 Instruction Type:Patient Education Patient Instructions Indication:BMI 32.0-32.9,adult Start:09-Feb-2019 Instruction Type:Provider Instructions for Treatment How to access health informa tion online Indication:Non-smoker Start:16-Aug-2018 Instruction Type:Patient Education How to access health informa tion online - Detail Indication:Non-smoker Start:16-Aug-2018 Instruction Type:Patient Education Patient Instructions Indication:Non-smoker Start:16-Aug-2018 Instruction Type:Provider Instructions for Treatment How to access health informa tion online Indication:BMI 32.0-32.9,adult Start:17-May-2018 Instruction Type:Patient Education How to access health informa tion online - Detail Indication:BMI 32.0-32.9,adult Start:17-May-2018 Instruction Type:Patient Education Patient Instructions Indication:BMI 32.0-32.9,adult Start:17-May-2018 Instruction Type:Provider Instructions for Treatment How to access health informa tion online Indication:Diabetes mellitus type II, controlled Start:21-Dec-2017 Instruction Type:Patient Education How to access health informa tion online - Detail Indication:Diabetes mellitus type II, controlled Start:21-Dec-2017 Instruction Type:Patient Education Patient Instructions Indication:Diabetes mellitus type II, controlled Start:21-Dec-2017 Instruction Type:Provider Instructions for Treatment How to access health informa tion online Indication:Diabetes mellitus type II, controlled Start:18-Aug-2017 Instruction Type:Patient Education How to access health informa tion online - Detail Indication:Diabetes mellitus type II, controlled Start:18-Aug-2017 Instruction Type:Patient Education Patient Instructions Indication:Diabetes mellitus type II, controlled Start:18-Aug-2017 Instruction Type:Provider Instructions for Treatment How to access health informa tion online Indication:Diabetes mellitus type II, controlled Start:21-Apr-2016 Instruction Type:Patient Education How to access health informa tion online - Detail Indication:Diabetes mellitus type II, controlled Start:21-Apr-2016 Instruction Type:Patient Education Patient Instructions Indication:Diabetes mellitus type II, controlled Start:21-Apr-2016 Instruction Type:Provider Instructions for Treatment How to access health informa tion online Indication:Hematuria Start:16-Feb-2016 Instruction Type:Patient Education How to access health informa tion online - Detail Indication:Hematuria Start:16-Feb-2016 Instruction Type:Patient Education Patient Instructions Indication:Hematuria Start:16-Feb-2016 Instruction Type:Provider Instructions for Treatment How to access health informa tion online Indication:Anxiety Start:09-Sep-2015 Instruction Type:Patient Education How to access health informa tion online - Detail Indication:Anxiety Start:09-Sep-2015 Instruction Type:Patient Education Patient Instructions Indication:Anxiety Start:09-Sep-2015 Instruction Type:Provider Instructions for Treatment How to access health informa tion online Indication:Anxiety Start:25-Jul-2015 Instruction Type:Patient Education How to access health informa tion online - Detail Indication:Anxiety Start:25-Jul-2015 Instruction Type:Patient Education Patient Instructions Indication:Anxiety Start:25-Jul-2015 Instruction Type:Provider Instructions for Treatment How to access health informa tion online Indication:Diabetes mellitus type II, controlled Start:03-Feb-2015 Instruction Type:Patient Education How to access health informa tion online - Detail Indication:Diabetes mellitus type II, controlled Start:03-Feb-2015 Instruction Type:Patient Education Patient Instructions Indication:Diabetes mellitus type II, controlled Start:03-Feb-2015 Instruction Type:Provider Instructions for Treatment How to access health informa tion online Indication:Contact dermatitis, contact dermatitis due to unspecified agent, unspecified contact dermatitis Start:09-Jan-2015 Instruction Type:Patient Education How to access health informa tion online - Detail Indication:Contact dermatitis, contact dermatitis due to unspecified agent, unspecified contact dermatitis Start:09-Jan-2015 Instruction Type:Patient Education Patient Instructions Indication:Contact dermatitis, contact dermatitis due to unspecified agent, unspecified contact dermatitis Start:09-Jan-2015 Instruction Type:Provider Instructions for Treatment How to access health informa tion online Indication:Diabetes mellitus type II, controlled Start:27-Aug-2014 Instruction Type:Patient Education How to access health informa tion online - Detail Indication:Diabetes mellitus type II, controlled Start:27-Aug-2014 Instruction Type:Patient Education Patient Instructions Indication:Diabetes mellitus type II, controlled Start:27-Aug-2014 Instruction Type:Provider Instructions for Treatment How to access health informa tion online - Detail Indication:Diabetes mellitus type II, controlled Start:30-Jul-2014 Instruction Type:Patient Education How to access health informa tion online Indication:Diabetes mellitus type II, controlled Start:30-Jul-2014 Instruction Type:Patient Education Patient Instructions Indication:Diabetes mellitus type II, controlled Start:30-Jul-2014 Instruction Type:Provider Instructions for Treatment Patient Instructions Indication:Diabetes mellitus type II, controlled Start:19-Dec-2012 Instruction Type:Provider Instructions for Treatment Patient Instructions Indication:Diabetes mellitus type II, controlled Start:11-Feb-2012 Instruction Type:Provider Instructions for Treatment [facility]; [facility] Work Phone: Instructions* Name Dates Details Patient Instructions Indication:Non-smoker Start:25-Jan-2022 Instruction Type:Provider Instructions for Treatment How to Access Health Informa tion Online using Patient Portal and [employer] Apps Indication:Non-smoker Start:25-Jan-2022 Instruction Type:Patient Education Patient Instructions Indication:UTI (urinary tract infection), bacterial Start:07-Jan-2022 Instruction Type:Provider Instructions for Treatment How to Access Health Informa tion Online using Patient Portal and [employer] Apps Indication:UTI (urinary tract infection), bacterial Start:07-Jan-2022 Instruction Type:Patient Education Patient Instructions Indication:Urinary frequency Start:03-Dec-2021 Instruction Type:Provider Instructions for Treatment How to Access Health Informa tion Online using Patient Portal and [employer] Indication:Urinary frequency Start:03-Dec-2021 Instruction Type:Patient Education Patient Instructions Indication:Diabetes mellitus type II, controlled Start:06-Nov-2021 Instruction Type:Provider Instructions for Treatment How to Access Health Informa tion Online using Patient Portal and [employer] Apps Indication:Diabetes mellitus type II, controlled Start:06-Nov-2021 Instruction Type:Patient Education obesity counseling Indication:Diabetes mellitus type II, controlled Start:05-Aug-2021 Instruction Type:Provider Instructions for Treatment cardiovascular counseling Indication:Coronary artery disease Start:05-Aug-2021 Instruction Type:Provider Instructions for Treatment Patient Instructions Indication:BMI 31.0-31.9,adult Start:05-Aug-2021 Instruction Type:Provider Instructions for Treatment How to Access Health Informa tion Online using Patient Portal and [employer] Apps Indication:BMI 31.0-31.9,adult Start:05-Aug-2021 Instruction Type:Patient Education Patient Instructions Indication:BMI 32.0-32.9,adult Start:09-Apr-2021 Instruction Type:Provider Instructions for Treatment How to Access Health Informa tion Online using Patient Portal and [employer] Apps Indication:BMI 32.0-32.9,adult Start:09-Apr-2021 Instruction Type:Patient Education Patient Instructions Indication:BMI 32.0-32.9,adult Start:08-Jan-2021 Instruction Type:Provider Instructions for Treatment How to Access Health Informa tion Online using Patient Portal and [employer] Apps Indication:BMI 32.0-32.9,adult Start:08-Jan-2021 Instruction Type:Patient Education Patient Instructions Indication:BMI 32.0-32.9,adult Start:08-Sep-2020 Instruction Type:Provider Instructions for Treatment How to Access Health Informa tion Online using Patient Portal and [employer] Apps Indication:BMI 32.0-32.9,adult Start:08-Sep-2020 Instruction Type:Patient Education How to Access Health Informa tion Online using Patient Portal and [employer] Apps Indication:Non-smoker Start:05-Jun-2020 Instruction Type:Patient Education Patient Instructions Indication:Non-smoker Start:05-Jun-2020 Instruction Type:Provider Instructions for Treatment How to Access Health Informa tion Online using Patient Portal and [employer] Apps Indication:Non-smoker Start:20-Feb-2020 Instruction Type:Patient Education Patient Instructions Indication:Non-smoker Start:20-Feb-2020 Instruction Type:Provider Instructions for Treatment obesity counseling Indication:Diabetes mellitus type II, controlled Start:06-Dec-2019 Instruction Type:Provider Instructions for Treatment cardiovascular counseling Indication:Coronary artery disease Start:06-Dec-2019 Instruction Type:Provider Instructions for Treatment How to access health informa tion online Indication:BMI 32.0-32.9,adult Start:06-Dec-2019 Instruction Type:Patient Education How to access health informa tion online - Detail Indication:BMI 32.0-32.9,adult Start:06-Dec-2019 Instruction Type:Patient Education Patient Instructions Indication:BMI 32.0-32.9,adult Start:06-Dec-2019 Instruction Type:Provider Instructions for Treatment How to access health informa tion online Indication:Non-smoker Start:19-Nov-2019 Instruction Type:Patient Education How to access health informa tion online - Detail Indication:Non-smoker Start:19-Nov-2019 Instruction Type:Patient Education Patient Instructions Indication:Non-smoker Start:19-Nov-2019 Instruction Type:Provider Instructions for Treatment How to access health informa tion online Indication:Non-smoker Start:16-Aug-2019 Instruction Type:Patient Education How to access health informa tion online - Detail Indication:Non-smoker Start:16-Aug-2019 Instruction Type:Patient Education Patient Instructions Indication:Non-smoker Start:16-Aug-2019 Instruction Type:Provider Instructions for Treatment How to access health informa tion online Indication:Non-smoker Start:16-Apr-2019 Instruction Type:Patient Education How to access health informa tion online - Detail Indication:Non-smoker Start:16-Apr-2019 Instruction Type:Patient Education Patient Instructions Indication:Non-smoker Start:16-Apr-2019 Instruction Type:Provider Instructions for Treatment How to access health informa tion online Indication:Non-smoker Start:09-Feb-2019 Instruction Type:Patient Education How to access health informa tion online - Detail Indication:Non-smoker Start:09-Feb-2019 Instruction Type:Patient Education Patient Instructions Indication:BMI 32.0-32.9,adult Start:09-Feb-2019 Instruction Type:Provider Instructions for Treatment How to access health informa tion online Indication:Non-smoker Start:16-Aug-2018 Instruction Type:Patient Education How to access health informa tion online - Detail Indication:Non-smoker Start:16-Aug-2018 Instruction Type:Patient Education Patient Instructions Indication:Non-smoker Start:16-Aug-2018 Instruction Type:Provider Instructions for Treatment How to access health informa tion online Indication:BMI 32.0-32.9,adult Start:17-May-2018 Instruction Type:Patient Education How to access health informa tion online - Detail Indication:BMI 32.0-32.9,adult Start:17-May-2018 Instruction Type:Patient Education Patient Instructions Indication:BMI 32.0-32.9,adult Start:17-May-2018 Instruction Type:Provider Instructions for Treatment How to access health informa tion online Indication:Diabetes mellitus type II, controlled Start:21-Dec-2017 Instruction Type:Patient Education How to access health informa tion online - Detail Indication:Diabetes mellitus type II, controlled Start:21-Dec-2017 Instruction Type:Patient Education Patient Instructions Indication:Diabetes mellitus type II, controlled Start:21-Dec-2017 Instruction Type:Provider Instructions for Treatment How to access health informa tion online Indication:Diabetes mellitus type II, controlled Start:18-Aug-2017 Instruction Type:Patient Education How to access health informa tion online - Detail Indication:Diabetes mellitus type II, controlled Start:18-Aug-2017 Instruction Type:Patient Education Patient Instructions Indication:Diabetes mellitus type II, controlled Start:18-Aug-2017 Instruction Type:Provider Instructions for Treatment How to access health informa tion online Indication:Diabetes mellitus type II, controlled Start:21-Apr-2016 Instruction Type:Patient Education How to access health informa tion online - Detail Indication:Diabetes mellitus type II, controlled Start:21-Apr-2016 Instruction Type:Patient Education Patient Instructions Indication:Diabetes mellitus type II, controlled Start:21-Apr-2016 Instruction Type:Provider Instructions for Treatment How to access health informa tion online Indication:Hematuria Start:16-Feb-2016 Instruction Type:Patient Education How to access health informa tion online - Detail Indication:Hematuria Start:16-Feb-2016 Instruction Type:Patient Education Patient Instructions Indication:Hematuria Start:16-Feb-2016 Instruction Type:Provider Instructions for Treatment How to access health informa tion online Indication:Anxiety Start:09-Sep-2015 Instruction Type:Patient Education How to access health informa tion online - Detail Indication:Anxiety Start:09-Sep-2015 Instruction Type:Patient Education Patient Instructions Indication:Anxiety Start:09-Sep-2015 Instruction Type:Provider Instructions for Treatment How to access health informa tion online Indication:Anxiety Start:25-Jul-2015 Instruction Type:Patient Education How to access health informa tion online - Detail Indication:Anxiety Start:25-Jul-2015 Instruction Type:Patient Education Patient Instructions Indication:Anxiety Start:25-Jul-2015 Instruction Type:Provider Instructions for Treatment How to access health informa tion online Indication:Diabetes mellitus type II, controlled Start:03-Feb-2015 Instruction Type:Patient Education How to access health informa tion online - Detail Indication:Diabetes mellitus type II, controlled Start:03-Feb-2015 Instruction Type:Patient Education Patient Instructions Indication:Diabetes mellitus type II, controlled Start:03-Feb-2015 Instruction Type:Provider Instructions for Treatment How to access health informa tion online Indication:Contact dermatitis, contact dermatitis due to unspecified agent, unspecified contact dermatitis Start:09-Jan-2015 Instruction Type:Patient Education How to access health informa tion online - Detail Indication:Contact dermatitis, contact dermatitis due to unspecified agent, unspecified contact dermatitis Start:09-Jan-2015 Instruction Type:Patient Education Patient Instructions Indication:Contact dermatitis, contact dermatitis due to unspecified agent, unspecified contact dermatitis Start:09-Jan-2015 Instruction Type:Provider Instructions for Treatment How to access health informa tion online Indication:Diabetes mellitus type II, controlled Start:27-Aug-2014 Instruction Type:Patient Education How to access health informa tion online - Detail Indication:Diabetes mellitus type II, controlled Start:27-Aug-2014 Instruction Type:Patient Education Patient Instructions Indication:Diabetes mellitus type II, controlled Start:27-Aug-2014 Instruction Type:Provider Instructions for Treatment How to access health informa tion online - Detail Indication:Diabetes mellitus type II, controlled Start:30-Jul-2014 Instruction Type:Patient Education How to access health informa tion online Indication:Diabetes mellitus type II, controlled Start:30-Jul-2014 Instruction Type:Patient Education Patient Instructions Indication:Diabetes mellitus type II, controlled Start:30-Jul-2014 Instruction Type:Provider Instructions for Treatment Patient Instructions Indication:Diabetes mellitus type II, controlled Start:19-Dec-2012 Instruction Type:Provider Instructions for Treatment Patient Instructions Indication:Diabetes mellitus type II, controlled Start:11-Feb-2012 Instruction Type:Provider Instructions for Treatment [facility]; [facility] Work Phone: Instructions* Name Dates Details Patient Instructions Indication:Non-smoker Start:25-Jan-2022 Instruction Type:Provider Instructions for Treatment How to Access Health Informa tion Online using Patient Portal and [employer] Apps Indication:Non-smoker Start:25-Jan-2022 Instruction Type:Patient Education Patient Instructions Indication:UTI (urinary tract infection), bacterial Start:07-Jan-2022 Instruction Type:Provider Instructions for Treatment How to Access Health Informa tion Online using Patient Portal and [employer] Apps Indication:UTI (urinary tract infection), bacterial Start:07-Jan-2022 Instruction Type:Patient Education Patient Instructions Indication:Urinary frequency Start:03-Dec-2021 Instruction Type:Provider Instructions for Treatment How to Access Health Informa tion Online using Patient Portal and [employer] Apps Indication:Urinary frequency Start:03-Dec-2021 Instruction Type:Patient Education Patient Instructions Indication:Diabetes mellitus type II, controlled Start:06-Nov-2021 Instruction Type:Provider Instructions for Treatment How to Access Health Informa tion Online using Patient Portal and [employer] Apps Indication:Diabetes mellitus type II, controlled Start:06-Nov-2021 Instruction Type:Patient Education obesity counseling Indication:Diabetes mellitus type II, controlled Start:05-Aug-2021 Instruction Type:Provider Instructions for Treatment cardiovascular counseling Indication:Coronary artery disease Start:05-Aug-2021 Instruction Type:Provider Instructions for Treatment Patient Instructions Indication:BMI 31.0-31.9,adult Start:05-Aug-2021 Instruction Type:Provider Instructions for Treatment How to Access Health Informa tion Online using Patient Portal and [employer] Apps Indication:BMI 31.0-31.9,adult Start:05-Aug-2021 Instruction Type:Patient Education Patient Instructions Indication:BMI 32.0-32.9,adult Start:09-Apr-2021 Instruction Type:Provider Instructions for Treatment How to Access Health Informa tion Online using Patient Portal and [employer] Apps Indication:BMI 32.0-32.9,adult Start:09-Apr-2021 Instruction Type:Patient Education Patient Instructions Indication:BMI 32.0-32.9,adult Start:08-Jan-2021 Instruction Type:Provider Instructions for Treatment How to Access Health Informa tion Online using Patient Portal and [employer] Apps Indication:BMI 32.0-32.9,adult Start:08-Jan-2021 Instruction Type:Patient Education Patient Instructions Indication:BMI 32.0-32.9,adult Start:08-Sep-2020 Instruction Type:Provider Instructions for Treatment How to Access Health Informa tion Online using Patient Portal and [employer] Apps Indication:BMI 32.0-32.9,adult Start:08-Sep-2020 Instruction Type:Patient Education How to Access Health Informa tion Online using Patient Portal and [employer] Apps Indication:Non-smoker Start:05-Jun-2020 Instruction Type:Patient Education Patient Instructions Indication:Non-smoker Start:05-Jun-2020 Instruction Type:Provider Instructions for Treatment How to Access Health Informa tion Online using Patient Portal and [employer] Apps Indication:Non-smoker Start:20-Feb-2020 Instruction Type:Patient Education Patient Instructions Indication:Non-smoker Start:20-Feb-2020 Instruction Type:Provider Instructions for Treatment obesity counseling Indication:Diabetes mellitus type II, controlled Start:06-Dec-2019 Instruction Type:Provider Instructions for Treatment cardiovascular counseling Indication:Coronary artery disease Start:06-Dec-2019 Instruction Type:Provider Instructions for Treatment How to access health informa tion online Indication:BMI 32.0-32.9,adult Start:06-Dec-2019 Instruction Type:Patient Education How to access health informa tion online - Detail Indication:BMI 32.0-32.9,adult Start:06-Dec-2019 Instruction Type:Patient Education Patient Instructions Indication:BMI 32.0-32.9,adult Start:06-Dec-2019 Instruction Type:Provider Instructions for Treatment How to access health informa tion online Indication:Non-smoker Start:19-Nov-2019 Instruction Type:Patient Education How to access health informa tion online - Detail Indication:Non-smoker Start:19-Nov-2019 Instruction Type:Patient Education Patient Instructions Indication:Non-smoker Start:19-Nov-2019 Instruction Type:Provider Instructions for Treatment How to access health informa tion online Indication:Non-smoker Start:16-Aug-2019 Instruction Type:Patient Education How to access health informa tion online - Detail Indication:Non-smoker Start:16-Aug-2019 Instruction Type:Patient Education Patient Instructions Indication:Non-smoker Start:16-Aug-2019 Instruction Type:Provider Instructions for Treatment How to access health informa tion online Indication:Non-smoker Start:16-Apr-2019 Instruction Type:Patient Education How to access health informa tion online - Detail Indication:Non-smoker Start:16-Apr-2019 Instruction Type:Patient Education Patient Instructions Indication:Non-smoker Start:16-Apr-2019 Instruction Type:Provider Instructions for Treatment How to access health informa tion online Indication:Non-smoker Start:09-Feb-2019 Instruction Type:Patient Education How to access health informa tion online - Detail Indication:Non-smoker Start:09-Feb-2019 Instruction Type:Patient Education Patient Instructions Indication:BMI 32.0-32.9,adult Start:09-Feb-2019 Instruction Type:Provider Instructions for Treatment How to access health informa tion online Indication:Non-smoker Start:16-Aug-2018 Instruction Type:Patient Education How to access health informa tion online - Detail Indication:Non-smoker Start:16-Aug-2018 Instruction Type:Patient Education Patient Instructions Indication:Non-smoker Start:16-Aug-2018 Instruction Type:Provider Instructions for Treatment How to access health informa tion online Indication:BMI 32.0-32.9,adult Start:17-May-2018 Instruction Type:Patient Education How to access health informa tion online - Detail Indication:BMI 32.0-32.9,adult Start:17-May-2018 Instruction Type:Patient Education Patient Instructions Indication:BMI 32.0-32.9,adult Start:17-May-2018 Instruction Type:Provider Instructions for Treatment How to access health informa tion online Indication:Diabetes mellitus type II, controlled Start:21-Dec-2017 Instruction Type:Patient Education How to access health informa tion online - Detail Indication:Diabetes mellitus type II, controlled Start:21-Dec-2017 Instruction Type:Patient Education Patient Instructions Indication:Diabetes mellitus type II, controlled Start:21-Dec-2017 Instruction Type:Provider Instructions for Treatment How to access health informa tion online Indication:Diabetes mellitus type II, controlled Start:18-Aug-2017 Instruction Type:Patient Education How to access health informa tion online - Detail Indication:Diabetes mellitus type II, controlled Start:18-Aug-2017 Instruction Type:Patient Education Patient Instructions Indication:Diabetes mellitus type II, controlled Start:18-Aug-2017 Instruction Type:Provider Instructions for Treatment How to access health informa tion online Indication:Diabetes mellitus type II, controlled Start:21-Apr-2016 Instruction Type:Patient Education How to access health informa tion online - Detail Indication:Diabetes mellitus type II, controlled Start:21-Apr-2016 Instruction Type:Patient Education Patient Instructions Indication:Diabetes mellitus type II, controlled Start:21-Apr-2016 Instruction Type:Provider Instructions for Treatment How to access health informa tion online Indication:Hematuria Start:16-Feb-2016 Instruction Type:Patient Education How to access health informa tion online - Detail Indication:Hematuria Start:16-Feb-2016 Instruction Type:Patient Education Patient Instructions Indication:Hematuria Start:16-Feb-2016 Instruction Type:Provider Instructions for Treatment How to access health informa tion online Indication:Anxiety Start:09-Sep-2015 Instruction Type:Patient Education How to access health informa tion online - Detail Indication:Anxiety Start:09-Sep-2015 Instruction Type:Patient Education Patient Instructions Indication:Anxiety Start:09-Sep-2015 Instruction Type:Provider Instructions for Treatment How to access health informa tion online Indication:Anxiety Start:25-Jul-2015 Instruction Type:Patient Education How to access health informa tion online - Detail Indication:Anxiety Start:25-Jul-2015 Instruction Type:Patient Education Patient Instructions Indication:Anxiety Start:25-Jul-2015 Instruction Type:Provider Instructions for Treatment How to access health informa tion online Indication:Diabetes mellitus type II, controlled Start:03-Feb-2015 Instruction Type:Patient Education How to access health informa tion online - Detail Indication:Diabetes mellitus type II, controlled Start:03-Feb-2015 Instruction Type:Patient Education Patient Instructions Indication:Diabetes mellitus type II, controlled Start:03-Feb-2015 Instruction Type:Provider Instructions for Treatment How to access health informa tion online Indication:Contact dermatitis, contact dermatitis due to unspecified agent, unspecified contact dermatitis Start:09-Jan-2015 Instruction Type:Patient Education How to access health informa tion online - Detail Indication:Contact dermatitis, contact dermatitis due to unspecified agent, unspecified contact dermatitis Start:09-Jan-2015 Instruction Type:Patient Education Patient Instructions Indication:Contact dermatitis, contact dermatitis due to unspecified agent, unspecified contact dermatitis Start:09-Jan-2015 Instruction Type:Provider Instructions for Treatment How to access health informa tion online Indication:Diabetes mellitus type II, controlled Start:27-Aug-2014 Instruction Type:Patient Education How to access health informa tion online - Detail Indication:Diabetes mellitus type II, controlled Start:27-Aug-2014 Instruction Type:Patient Education Patient Instructions Indication:Diabetes mellitus type II, controlled Start:27-Aug-2014 Instruction Type:Provider Instructions for Treatment How to access health informa tion online - Detail Indication:Diabetes mellitus type II, controlled Start:30-Jul-2014 Instruction Type:Patient Education How to access health informa tion online Indication:Diabetes mellitus type II, controlled Start:30-Jul-2014 Instruction Type:Patient Education Patient Instructions Indication:Diabetes mellitus type II, controlled Start:30-Jul-2014 Instruction Type:Provider Instructions for Treatment Patient Instructions Indication:Diabetes mellitus type II, controlled Start:19-Dec-2012 Instruction Type:Provider Instructions for Treatment Patient Instructions Indication:Diabetes mellitus type II, controlled Start:11-Feb-2012 Instruction Type:Provider Instructions for Treatment [facility]; [facility] Work Phone: Instructions* Name Dates Details Patient Instructions Indication:BMI 30.0-30.9,adult Start:15-Mar-2022 Instruction Type:Provider Instructions for Treatment How to Access Health Informa tion Online using Patient Portal and [employer] Apps Indication:BMI 30.0-30.9,adult Start:15-Mar-2022 Instruction Type:Patient Education Patient Instructions Indication:Non-smoker Start:25-Jan-2022 Instruction Type:Provider Instructions for Treatment How to Access Health Informa tion Online using Patient Portal and [employer] Apps Indication:Non-smoker Start:25-Jan-2022 Instruction Type:Patient Education Patient Instructions Indication:UTI (urinary tract infection), bacterial Start:07-Jan-2022 Instruction Type:Provider Instructions for Treatment How to Access Health Informa tion Online using Patient Portal and [employer] Indication:UTI (urinary tract infection), bacterial Start:07-Jan-2022 Instruction Type:Patient Education Patient Instructions Indication:Urinary frequency Start:03-Dec-2021 Instruction Type:Provider Instructions for Treatment How to Access Health Informa tion Online using Patient Portal and [employer] Apps Indication:Urinary frequency Start:03-Dec-2021 Instruction Type:Patient Education Patient Instructions Indication:Diabetes mellitus type II, controlled Start:06-Nov-2021 Instruction Type:Provider Instructions for Treatment How to Access Health Informa tion Online using Patient Portal and [employer] Apps Indication:Diabetes mellitus type II, controlled Start:06-Nov-2021 Instruction Type:Patient Education obesity counseling Indication:Diabetes mellitus type II, controlled Start:05-Aug-2021 Instruction Type:Provider Instructions for Treatment cardiovascular counseling Indication:Coronary artery disease Start:05-Aug-2021 Instruction Type:Provider Instructions for Treatment Patient Instructions Indication:BMI 31.0-31.9,adult Start:05-Aug-2021 Instruction Type:Provider Instructions for Treatment How to Access Health Informa tion Online using Patient Portal and [employer] Indication:BMI 31.0-31.9,adult Start:05-Aug-2021 Instruction Type:Patient Education Patient Instructions Indication:BMI 32.0-32.9,adult Start:09-Apr-2021 Instruction Type:Provider Instructions for Treatment How to Access Health Informa tion Online using Patient Portal and [employer] Apps Indication:BMI 32.0-32.9,adult Start:09-Apr-2021 Instruction Type:Patient Education Patient Instructions Indication:BMI 32.0-32.9,adult Start:08-Jan-2021 Instruction Type:Provider Instructions for Treatment How to Access Health Informa tion Online using Patient Portal and [employer] Apps Indication:BMI 32.0-32.9,adult Start:08-Jan-2021 Instruction Type:Patient Education Patient Instructions Indication:BMI 32.0-32.9,adult Start:08-Sep-2020 Instruction Type:Provider Instructions for Treatment How to Access Health Informa tion Online using Patient Portal and [employer] Indication:BMI 32.0-32.9,adult Start:08-Sep-2020 Instruction Type:Patient Education How to Access Health Informa tion Online using Patient Portal and [employer] Apps Indication:Non-smoker Start:05-Jun-2020 Instruction Type:Patient Education Patient Instructions Indication:Non-smoker Start:05-Jun-2020 Instruction Type:Provider Instructions for Treatment How to Access Health Informa tion Online using Patient Portal and [employer] Apps Indication:Non-smoker Start:20-Feb-2020 Instruction Type:Patient Education Patient Instructions Indication:Non-smoker Start:20-Feb-2020 Instruction Type:Provider Instructions for Treatment obesity counseling Indication:Diabetes mellitus type II, controlled Start:06-Dec-2019 Instruction Type:Provider Instructions for Treatment cardiovascular counseling Indication:Coronary artery disease Start:06-Dec-2019 Instruction Type:Provider Instructions for Treatment How to access health informa tion online Indication:BMI 32.0-32.9,adult Start:06-Dec-2019 Instruction Type:Patient Education How to access health informa tion online - Detail Indication:BMI 32.0-32.9,adult Start:06-Dec-2019 Instruction Type:Patient Education Patient Instructions Indication:BMI 32.0-32.9,adult Start:06-Dec-2019 Instruction Type:Provider Instructions for Treatment How to access health informa tion online Indication:Non-smoker Start:19-Nov-2019 Instruction Type:Patient Education How to access health informa tion online - Detail Indication:Non-smoker Start:19-Nov-2019 Instruction Type:Patient Education Patient Instructions Indication:Non-smoker Start:19-Nov-2019 Instruction Type:Provider Instructions for Treatment How to access health informa tion online Indication:Non-smoker Start:16-Aug-2019 Instruction Type:Patient Education How to access health informa tion online - Detail Indication:Non-smoker Start:16-Aug-2019 Instruction Type:Patient Education Patient Instructions Indication:Non-smoker Start:16-Aug-2019 Instruction Type:Provider Instructions for Treatment How to access health informa tion online Indication:Non-smoker Start:16-Apr-2019 Instruction Type:Patient Education How to access health informa tion online - Detail Indication:Non-smoker Start:16-Apr-2019 Instruction Type:Patient Education Patient Instructions Indication:Non-smoker Start:16-Apr-2019 Instruction Type:Provider Instructions for Treatment How to access health informa tion online Indication:Non-smoker Start:09-Feb-2019 Instruction Type:Patient Education How to access health informa tion online - Detail Indication:Non-smoker Start:09-Feb-2019 Instruction Type:Patient Education Patient Instructions Indication:BMI 32.0-32.9,adult Start:09-Feb-2019 Instruction Type:Provider Instructions for Treatment How to access health informa tion online Indication:Non-smoker Start:16-Aug-2018 Instruction Type:Patient Education How to access health informa tion online - Detail Indication:Non-smoker Start:16-Aug-2018 Instruction Type:Patient Education Patient Instructions Indication:Non-smoker Start:16-Aug-2018 Instruction Type:Provider Instructions for Treatment How to access health informa tion online Indication:BMI 32.0-32.9,adult Start:17-May-2018 Instruction Type:Patient Education How to access health informa tion online - Detail Indication:BMI 32.0-32.9,adult Start:17-May-2018 Instruction Type:Patient Education Patient Instructions Indication:BMI 32.0-32.9,adult Start:17-May-2018 Instruction Type:Provider Instructions for Treatment How to access health informa tion online Indication:Diabetes mellitus type II, controlled Start:21-Dec-2017 Instruction Type:Patient Education How to access health informa tion online - Detail Indication:Diabetes mellitus type II, controlled Start:21-Dec-2017 Instruction Type:Patient Education Patient Instructions Indication:Diabetes mellitus type II, controlled Start:21-Dec-2017 Instruction Type:Provider Instructions for Treatment How to access health informa tion online Indication:Diabetes mellitus type II, controlled Start:18-Aug-2017 Instruction Type:Patient Education How to access health informa tion online - Detail Indication:Diabetes mellitus type II, controlled Start:18-Aug-2017 Instruction Type:Patient Education Patient Instructions Indication:Diabetes mellitus type II, controlled Start:18-Aug-2017 Instruction Type:Provider Instructions for Treatment How to access health informa tion online Indication:Diabetes mellitus type II, controlled Start:21-Apr-2016 Instruction Type:Patient Education How to access health informa tion online - Detail Indication:Diabetes mellitus type II, controlled Start:21-Apr-2016 Instruction Type:Patient Education Patient Instructions Indication:Diabetes mellitus type II, controlled Start:21-Apr-2016 Instruction Type:Provider Instructions for Treatment How to access health informa tion online Indication:Hematuria Start:16-Feb-2016 Instruction Type:Patient Education How to access health informa tion online - Detail Indication:Hematuria Start:16-Feb-2016 Instruction Type:Patient Education Patient Instructions Indication:Hematuria Start:16-Feb-2016 Instruction Type:Provider Instructions for Treatment How to access health informa tion online Indication:Anxiety Start:09-Sep-2015 Instruction Type:Patient Education How to access health informa tion online - Detail Indication:Anxiety Start:09-Sep-2015 Instruction Type:Patient Education Patient Instructions Indication:Anxiety Start:09-Sep-2015 Instruction Type:Provider Instructions for Treatment How to access health informa tion online Indication:Anxiety Start:25-Jul-2015 Instruction Type:Patient Education How to access health informa tion online - Detail Indication:Anxiety Start:25-Jul-2015 Instruction Type:Patient Education Patient Instructions Indication:Anxiety Start:25-Jul-2015 Instruction Type:Provider Instructions for Treatment How to access health informa tion online Indication:Diabetes mellitus type II, controlled Start:03-Feb-2015 Instruction Type:Patient Education How to access health informa tion online - Detail Indication:Diabetes mellitus type II, controlled Start:03-Feb-2015 Instruction Type:Patient Education Patient Instructions Indication:Diabetes mellitus type II, controlled Start:03-Feb-2015 Instruction Type:Provider Instructions for Treatment How to access health informa tion online Indication:Contact dermatitis, contact dermatitis due to unspecified agent, unspecified contact dermatitis Start:09-Jan-2015 Instruction Type:Patient Education How to access health informa tion online - Detail Indication:Contact dermatitis, contact dermatitis due to unspecified agent, unspecified contact dermatitis Start:09-Jan-2015 Instruction Type:Patient Education Patient Instructions Indication:Contact dermatitis, contact dermatitis due to unspecified agent, unspecified contact dermatitis Start:09-Jan-2015 Instruction Type:Provider Instructions for Treatment How to access health informa tion online Indication:Diabetes mellitus type II, controlled Start:27-Aug-2014 Instruction Type:Patient Education How to access health informa tion online - Detail Indication:Diabetes mellitus type II, controlled Start:27-Aug-2014 Instruction Type:Patient Education Patient Instructions Indication:Diabetes mellitus type II, controlled Start:27-Aug-2014 Instruction Type:Provider Instructions for Treatment How to access health informa tion online - Detail Indication:Diabetes mellitus type II, controlled Start:30-Jul-2014 Instruction Type:Patient Education How to access health informa tion online Indication:Diabetes mellitus type II, controlled Start:30-Jul-2014 Instruction Type:Patient Education Patient Instructions Indication:Diabetes mellitus type II, controlled Start:30-Jul-2014 Instruction Type:Provider Instructions for Treatment Patient Instructions Indication:Diabetes mellitus type II, controlled Start:19-Dec-2012 Instruction Type:Provider Instructions for Treatment Patient Instructions Indication:Diabetes mellitus type II, controlled Start:11-Feb-2012 Instruction Type:Provider Instructions for Treatment [facility]; [facility] Work Phone: Instructions* Name Dates Details Patient Instructions Indication:Non-smoker Start:02-Aug-2022 Instruction Type:Provider Instructions for Treatment How to Access Health Informa tion Online using Patient Portal and [employer] Indication:Non-smoker Start:02-Aug-2022 Instruction Type:Patient Education Patient Instructions Indication:BMI 30.0-30.9,adult Start:15-Mar-2022 Instruction Type:Provider Instructions for Treatment How to Access Health Informa tion Online using Patient Portal and [employer] Indication:BMI 30.0-30.9,adult Start:15-Mar-2022 Instruction Type:Patient Education Patient Instructions Indication:Non-smoker Start:25-Jan-2022 Instruction Type:Provider Instructions for Treatment How to Access Health Informa tion Online using Patient Portal and [employer] Indication:Non-smoker Start:25-Jan-2022 Instruction Type:Patient Education Patient Instructions Indication:UTI (urinary tract infection), bacterial Start:07-Jan-2022 Instruction Type:Provider Instructions for Treatment How to Access Health Informa tion Online using Patient Portal and [employer] Indication:UTI (urinary tract infection), bacterial Start:07-Jan-2022 Instruction Type:Patient Education Patient Instructions Indication:Urinary frequency Start:03-Dec-2021 Instruction Type:Provider Instructions for Treatment How to Access Health Informa tion Online using Patient Portal and [employer] Indication:Urinary frequency Start:03-Dec-2021 Instruction Type:Patient Education Patient Instructions Indication:Diabetes mellitus type II, controlled Start:06-Nov-2021 Instruction Type:Provider Instructions for Treatment How to Access Health Informa tion Online using Patient Portal and [employer] Indication:Diabetes mellitus type II, controlled Start:06-Nov-2021 Instruction Type:Patient Education obesity counseling Indication:Diabetes mellitus type II, controlled Start:05-Aug-2021 Instruction Type:Provider Instructions for Treatment cardiovascular counseling Indication:Coronary artery disease Start:05-Aug-2021 Instruction Type:Provider Instructions for Treatment Patient Instructions Indication:BMI 31.0-31.9,adult Start:05-Aug-2021 Instruction Type:Provider Instructions for Treatment How to Access Health Informa tion Online using Patient Portal and [employer] Indication:BMI 31.0-31.9,adult Start:05-Aug-2021 Instruction Type:Patient Education Patient Instructions Indication:BMI 32.0-32.9,adult Start:09-Apr-2021 Instruction Type:Provider Instructions for Treatment How to Access Health Informa tion Online using Patient Portal and [employer] Indication:BMI 32.0-32.9,adult Start:09-Apr-2021 Instruction Type:Patient Education Patient Instructions Indication:BMI 32.0-32.9,adult Start:08-Jan-2021 Instruction Type:Provider Instructions for Treatment How to Access Health Informa tion Online using Patient Portal and [employer] Indication:BMI 32.0-32.9,adult Start:08-Jan-2021 Instruction Type:Patient Education Patient Instructions Indication:BMI 32.0-32.9,adult Start:08-Sep-2020 Instruction Type:Provider Instructions for Treatment How to Access Health Informa tion Online using Patient Portal and [employer] Indication:BMI 32.0-32.9,adult Start:08-Sep-2020 Instruction Type:Patient Education How to Access Health Informa tion Online using Patient Portal and [employer] Indication:Non-smoker Start:05-Jun-2020 Instruction Type:Patient Education Patient Instructions Indication:Non-smoker Start:05-Jun-2020 Instruction Type:Provider Instructions for Treatment How to Access Health Informa tion Online using Patient Portal and [employer] Indication:Non-smoker Start:20-Feb-2020 Instruction Type:Patient Education Patient Instructions Indication:Non-smoker Start:20-Feb-2020 Instruction Type:Provider Instructions for Treatment obesity counseling Indication:Diabetes mellitus type II, controlled Start:06-Dec-2019 Instruction Type:Provider Instructions for Treatment cardiovascular counseling Indication:Coronary artery disease Start:06-Dec-2019 Instruction Type:Provider Instructions for Treatment How to access health informa tion online Indication:BMI 32.0-32.9,adult Start:06-Dec-2019 Instruction Type:Patient Education How to access health informa tion online - Detail Indication:BMI 32.0-32.9,adult Start:06-Dec-2019 Instruction Type:Patient Education Patient Instructions Indication:BMI 32.0-32.9,adult Start:06-Dec-2019 Instruction Type:Provider Instructions for Treatment How to access health informa tion online Indication:Non-smoker Start:19-Nov-2019 Instruction Type:Patient Education How to access health informa tion online - Detail Indication:Non-smoker Start:19-Nov-2019 Instruction Type:Patient Education Patient Instructions Indication:Non-smoker Start:19-Nov-2019 Instruction Type:Provider Instructions for Treatment How to access health informa tion online Indication:Non-smoker Start:16-Aug-2019 Instruction Type:Patient Education How to access health informa tion online - Detail Indication:Non-smoker Start:16-Aug-2019 Instruction Type:Patient Education Patient Instructions Indication:Non-smoker Start:16-Aug-2019 Instruction Type:Provider Instructions for Treatment How to access health informa tion online Indication:Non-smoker Start:16-Apr-2019 Instruction Type:Patient Education How to access health informa tion online - Detail Indication:Non-smoker Start:16-Apr-2019 Instruction Type:Patient Education Patient Instructions Indication:Non-smoker Start:16-Apr-2019 Instruction Type:Provider Instructions for Treatment How to access health informa tion online Indication:Non-smoker Start:09-Feb-2019 Instruction Type:Patient Education How to access health informa tion online - Detail Indication:Non-smoker Start:09-Feb-2019 Instruction Type:Patient Education Patient Instructions Indication:BMI 32.0-32.9,adult Start:09-Feb-2019 Instruction Type:Provider Instructions for Treatment How to access health informa tion online Indication:Non-smoker Start:16-Aug-2018 Instruction Type:Patient Education How to access health informa tion online - Detail Indication:Non-smoker Start:16-Aug-2018 Instruction Type:Patient Education Patient Instructions Indication:Non-smoker Start:16-Aug-2018 Instruction Type:Provider Instructions for Treatment How to access health informa tion online Indication:BMI 32.0-32.9,adult Start:17-May-2018 Instruction Type:Patient Education How to access health informa tion online - Detail Indication:BMI 32.0-32.9,adult Start:17-May-2018 Instruction Type:Patient Education Patient Instructions Indication:BMI 32.0-32.9,adult Start:17-May-2018 Instruction Type:Provider Instructions for Treatment How to access health informa tion online Indication:Diabetes mellitus type II, controlled Start:21-Dec-2017 Instruction Type:Patient Education How to access health informa tion online - Detail Indication:Diabetes mellitus type II, controlled Start:21-Dec-2017 Instruction Type:Patient Education Patient Instructions Indication:Diabetes mellitus type II, controlled Start:21-Dec-2017 Instruction Type:Provider Instructions for Treatment How to access health informa tion online Indication:Diabetes mellitus type II, controlled Start:18-Aug-2017 Instruction Type:Patient Education How to access health informa tion online - Detail Indication:Diabetes mellitus type II, controlled Start:18-Aug-2017 Instruction Type:Patient Education Patient Instructions Indication:Diabetes mellitus type II, controlled Start:18-Aug-2017 Instruction Type:Provider Instructions for Treatment How to access health informa tion online Indication:Diabetes mellitus type II, controlled Start:21-Apr-2016 Instruction Type:Patient Education How to access health informa tion online - Detail Indication:Diabetes mellitus type II, controlled Start:21-Apr-2016 Instruction Type:Patient Education Patient Instructions Indication:Diabetes mellitus type II, controlled Start:21-Apr-2016 Instruction Type:Provider Instructions for Treatment How to access health informa tion online Indication:Hematuria Start:16-Feb-2016 Instruction Type:Patient Education How to access health informa tion online - Detail Indication:Hematuria Start:16-Feb-2016 Instruction Type:Patient Education Patient Instructions Indication:Hematuria Start:16-Feb-2016 Instruction Type:Provider Instructions for Treatment How to access health informa tion online Indication:Anxiety Start:09-Sep-2015 Instruction Type:Patient Education How to access health informa tion online - Detail Indication:Anxiety Start:09-Sep-2015 Instruction Type:Patient Education Patient Instructions Indication:Anxiety Start:09-Sep-2015 Instruction Type:Provider Instructions for Treatment How to access health informa tion online Indication:Anxiety Start:25-Jul-2015 Instruction Type:Patient Education How to access health informa tion online - Detail Indication:Anxiety Start:25-Jul-2015 Instruction Type:Patient Education Patient Instructions Indication:Anxiety Start:25-Jul-2015 Instruction Type:Provider Instructions for Treatment How to access health informa tion online Indication:Diabetes mellitus type II, controlled Start:03-Feb-2015 Instruction Type:Patient Education How to access health informa tion online - Detail Indication:Diabetes mellitus type II, controlled Start:03-Feb-2015 Instruction Type:Patient Education Patient Instructions Indication:Diabetes mellitus type II, controlled Start:03-Feb-2015 Instruction Type:Provider Instructions for Treatment How to access health informa tion online Indication:Contact dermatitis, contact dermatitis due to unspecified agent, unspecified contact dermatitis Start:09-Jan-2015 Instruction Type:Patient Education How to access health informa tion online - Detail Indication:Contact dermatitis, contact dermatitis due to unspecified agent, unspecified contact dermatitis Start:09-Jan-2015 Instruction Type:Patient Education Patient Instructions Indication:Contact dermatitis, contact dermatitis due to unspecified agent, unspecified contact dermatitis Start:09-Jan-2015 Instruction Type:Provider Instructions for Treatment How to access health informa tion online Indication:Diabetes mellitus type II, controlled Start:27-Aug-2014 Instruction Type:Patient Education How to access health informa tion online - Detail Indication:Diabetes mellitus type II, controlled Start:27-Aug-2014 Instruction Type:Patient Education Patient Instructions Indication:Diabetes mellitus type II, controlled Start:27-Aug-2014 Instruction Type:Provider Instructions for Treatment How to access health informa tion online - Detail Indication:Diabetes mellitus type II, controlled Start:30-Jul-2014 Instruction Type:Patient Education How to access health informa tion online Indication:Diabetes mellitus type II, controlled Start:30-Jul-2014 Instruction Type:Patient Education Patient Instructions Indication:Diabetes mellitus type II, controlled Start:30-Jul-2014 Instruction Type:Provider Instructions for Treatment Patient Instructions Indication:Diabetes mellitus type II, controlled Start:19-Dec-2012 Instruction Type:Provider Instructions for Treatment Patient Instructions Indication:Diabetes mellitus type II, controlled Start:11-Feb-2012 Instruction Type:Provider Instructions for Treatment [facility]; [facility] Work Phone: Instructions* Name Dates Details cardiovascular counseling Indication:Coronary artery disease Start:02-Aug-2022 Instruction Type:Provider Instructions for Treatment Patient Instructions Indication:Non-smoker Start:02-Aug-2022 Instruction Type:Provider Instructions for Treatment How to Access Health Informa tion Online using Patient Portal and [employer] Indication:Non-smoker Start:02-Aug-2022 Instruction Type:Patient Education Patient Instructions Indication:BMI 30.0-30.9,adult Start:15-Mar-2022 Instruction Type:Provider Instructions for Treatment How to Access Health Informa tion Online using Patient Portal and [employer] Indication:BMI 30.0-30.9,adult Start:15-Mar-2022 Instruction Type:Patient Education Patient Instructions Indication:Non-smoker Start:25-Jan-2022 Instruction Type:Provider Instructions for Treatment How to Access Health Informa tion Online using Patient [email or web address] Indication:Non-smoker Start:25-Jan-2022 Instruction Type:Patient Education Patient Instructions Indication:UTI (urinary tract infection), bacterial Start:07-Jan-2022 Instruction Type:Provider Instructions for Treatment How to Access Health Informa tion Online using Patient [employer] Indication:UTI (urinary tract infection), bacterial Start:07-Jan-2022 Instruction Type:Patient Education Patient Instructions Indication:Urinary frequency Start:03-Dec-2021 Instruction Type:Provider Instructions for Treatment How to Access Health Informa tion Online using Patient Portal and [email or web address] Indication:Urinary frequency Start:03-Dec-2021 Instruction Type:Patient Education Patient Instructions Indication:Diabetes mellitus type II, controlled Start:06-Nov-2021 Instruction Type:Provider Instructions for Treatment How to Access Health Informa tion Online using Patient Portal and [employer] Indication:Diabetes mellitus type II, controlled Start:06-Nov-2021 Instruction Type:Patient Education obesity counseling Indication:Diabetes mellitus type II, controlled Start:05-Aug-2021 Instruction Type:Provider Instructions for Treatment cardiovascular counseling Indication:Coronary artery disease Start:05-Aug-2021 Instruction Type:Provider Instructions for Treatment Patient Instructions Indication:BMI 31.0-31.9,adult Start:05-Aug-2021 Instruction Type:Provider Instructions for Treatment How to Access Health Informa tion Online using Patient Portal and [employer] Indication:BMI 31.0-31.9,adult Start:05-Aug-2021 Instruction Type:Patient Education Patient Instructions Indication:BMI 32.0-32.9,adult Start:09-Apr-2021 Instruction Type:Provider Instructions for Treatment How to Access Health Informa tion Online using Patient Portal and [employer] Indication:BMI 32.0-32.9,adult Start:09-Apr-2021 Instruction Type:Patient Education Patient Instructions Indication:BMI 32.0-32.9,adult Start:08-Jan-2021 Instruction Type:Provider Instructions for Treatment How to Access Health Informa tion Online using Patient Portal and [employer] Indication:BMI 32.0-32.9,adult Start:08-Jan-2021 Instruction Type:Patient Education Patient Instructions Indication:BMI 32.0-32.9,adult Start:08-Sep-2020 Instruction Type:Provider Instructions for Treatment How to Access Health Informa tion Online using Patient Portal and [employer] Indication:BMI 32.0-32.9,adult Start:08-Sep-2020 Instruction Type:Patient Education How to Access Health Informa tion Online using Patient Portal and [employer] Indication:Non-smoker Start:05-Jun-2020 Instruction Type:Patient Education Patient Instructions Indication:Non-smoker Start:05-Jun-2020 Instruction Type:Provider Instructions for Treatment How to Access Health Informa tion Online using Patient Portal and [employer] Indication:Non-smoker Start:20-Feb-2020 Instruction Type:Patient Education Patient Instructions Indication:Non-smoker Start:20-Feb-2020 Instruction Type:Provider Instructions for Treatment obesity counseling Indication:Diabetes mellitus type II, controlled Start:06-Dec-2019 Instruction Type:Provider Instructions for Treatment cardiovascular counseling Indication:Coronary artery disease Start:06-Dec-2019 Instruction Type:Provider Instructions for Treatment How to access health informa tion online Indication:BMI 32.0-32.9,adult Start:06-Dec-2019 Instruction Type:Patient Education How to access health informa tion online - Detail Indication:BMI 32.0-32.9,adult Start:06-Dec-2019 Instruction Type:Patient Education Patient Instructions Indication:BMI 32.0-32.9,adult Start:06-Dec-2019 Instruction Type:Provider Instructions for Treatment How to access health informa tion online Indication:Non-smoker Start:19-Nov-2019 Instruction Type:Patient Education How to access health informa tion online - Detail Indication:Non-smoker Start:19-Nov-2019 Instruction Type:Patient Education Patient Instructions Indication:Non-smoker Start:19-Nov-2019 Instruction Type:Provider Instructions for Treatment How to access health informa tion online Indication:Non-smoker Start:16-Aug-2019 Instruction Type:Patient Education How to access health informa tion online - Detail Indication:Non-smoker Start:16-Aug-2019 Instruction Type:Patient Education Patient Instructions Indication:Non-smoker Start:16-Aug-2019 Instruction Type:Provider Instructions for Treatment How to access health informa tion online Indication:Non-smoker Start:16-Apr-2019 Instruction Type:Patient Education How to access health informa tion online - Detail Indication:Non-smoker Start:16-Apr-2019 Instruction Type:Patient Education Patient Instructions Indication:Non-smoker Start:16-Apr-2019 Instruction Type:Provider Instructions for Treatment How to access health informa tion online Indication:Non-smoker Start:09-Feb-2019 Instruction Type:Patient Education How to access health informa tion online - Detail Indication:Non-smoker Start:09-Feb-2019 Instruction Type:Patient Education Patient Instructions Indication:BMI 32.0-32.9,adult Start:09-Feb-2019 Instruction Type:Provider Instructions for Treatment How to access health informa tion online Indication:Non-smoker Start:16-Aug-2018 Instruction Type:Patient Education How to access health informa tion online - Detail Indication:Non-smoker Start:16-Aug-2018 Instruction Type:Patient Education Patient Instructions Indication:Non-smoker Start:16-Aug-2018 Instruction Type:Provider Instructions for Treatment How to access health informa tion online Indication:BMI 32.0-32.9,adult Start:17-May-2018 Instruction Type:Patient Education How to access health informa tion online - Detail Indication:BMI 32.0-32.9,adult Start:17-May-2018 Instruction Type:Patient Education Patient Instructions Indication:BMI 32.0-32.9,adult Start:17-May-2018 Instruction Type:Provider Instructions for Treatment How to access health informa tion online Indication:Diabetes mellitus type II, controlled Start:21-Dec-2017 Instruction Type:Patient Education How to access health informa tion online - Detail Indication:Diabetes mellitus type II, controlled Start:21-Dec-2017 Instruction Type:Patient Education Patient Instructions Indication:Diabetes mellitus type II, controlled Start:21-Dec-2017 Instruction Type:Provider Instructions for Treatment How to access health informa tion online Indication:Diabetes mellitus type II, controlled Start:18-Aug-2017 Instruction Type:Patient Education How to access health informa tion online - Detail Indication:Diabetes mellitus type II, controlled Start:18-Aug-2017 Instruction Type:Patient Education Patient Instructions Indication:Diabetes mellitus type II, controlled Start:18-Aug-2017 Instruction Type:Provider Instructions for Treatment How to access health informa tion online Indication:Diabetes mellitus type II, controlled Start:21-Apr-2016 Instruction Type:Patient Education How to access health informa tion online - Detail Indication:Diabetes mellitus type II, controlled Start:21-Apr-2016 Instruction Type:Patient Education Patient Instructions Indication:Diabetes mellitus type II, controlled Start:21-Apr-2016 Instruction Type:Provider Instructions for Treatment How to access health informa tion online Indication:Hematuria Start:16-Feb-2016 Instruction Type:Patient Education How to access health informa tion online - Detail Indication:Hematuria Start:16-Feb-2016 Instruction Type:Patient Education Patient Instructions Indication:Hematuria Start:16-Feb-2016 Instruction Type:Provider Instructions for Treatment How to access health informa tion online Indication:Anxiety Start:09-Sep-2015 Instruction Type:Patient Education How to access health informa tion online - Detail Indication:Anxiety Start:09-Sep-2015 Instruction Type:Patient Education Patient Instructions Indication:Anxiety Start:09-Sep-2015 Instruction Type:Provider Instructions for Treatment How to access health informa tion online Indication:Anxiety Start:25-Jul-2015 Instruction Type:Patient Education How to access health informa tion online - Detail Indication:Anxiety Start:25-Jul-2015 Instruction Type:Patient Education Patient Instructions Indication:Anxiety Start:25-Jul-2015 Instruction Type:Provider Instructions for Treatment How to access health informa tion online Indication:Diabetes mellitus type II, controlled Start:03-Feb-2015 Instruction Type:Patient Education How to access health informa tion online - Detail Indication:Diabetes mellitus type II, controlled Start:03-Feb-2015 Instruction Type:Patient Education Patient Instructions Indication:Diabetes mellitus type II, controlled Start:03-Feb-2015 Instruction Type:Provider Instructions for Treatment How to access health informa tion online Indication:Contact dermatitis, contact dermatitis due to unspecified agent, unspecified contact dermatitis Start:09-Jan-2015 Instruction Type:Patient Education How to access health informa tion online - Detail Indication:Contact dermatitis, contact dermatitis due to unspecified agent, unspecified contact dermatitis Start:09-Jan-2015 Instruction Type:Patient Education Patient Instructions Indication:Contact dermatitis, contact dermatitis due to unspecified agent, unspecified contact dermatitis Start:09-Jan-2015 Instruction Type:Provider Instructions for Treatment How to access health informa tion online Indication:Diabetes mellitus type II, controlled Start:27-Aug-2014 Instruction Type:Patient Education How to access health informa tion online - Detail Indication:Diabetes mellitus type II, controlled Start:27-Aug-2014 Instruction Type:Patient Education Patient Instructions Indication:Diabetes mellitus type II, controlled Start:27-Aug-2014 Instruction Type:Provider Instructions for Treatment How to access health informa tion online - Detail Indication:Diabetes mellitus type II, controlled Start:30-Jul-2014 Instruction Type:Patient Education How to access health informa tion online Indication:Diabetes mellitus type II, controlled Start:30-Jul-2014 Instruction Type:Patient Education Patient Instructions Indication:Diabetes mellitus type II, controlled Start:30-Jul-2014 Instruction Type:Provider Instructions for Treatment Patient Instructions Indication:Diabetes mellitus type II, controlled Start:19-Dec-2012 Instruction Type:Provider Instructions for Treatment Patient Instructions Indication:Diabetes mellitus type II, controlled Start:11-Feb-2012 Instruction Type:Provider Instructions for Treatment [facility]; [facility] Work Phone: Instructions* Name Dates Details cardiovascular counseling Indication:Coronary artery disease Start:02-Aug-2022 Instruction Type:Provider Instructions for Treatment Patient Instructions Indication:Non-smoker Start:02-Aug-2022 Instruction Type:Provider Instructions for Treatment How to Access Health Informa tion Online using Patient Portal and [employer] Indication:Non-smoker Start:02-Aug-2022 Instruction Type:Patient Education Patient Instructions Indication:BMI 30.0-30.9,adult Start:15-Mar-2022 Instruction Type:Provider Instructions for Treatment How to Access Health Informa tion Online using Patient Portal and [employer] Indication:BMI 30.0-30.9,adult Start:15-Mar-2022 Instruction Type:Patient Education Patient Instructions Indication:Non-smoker Start:25-Jan-2022 Instruction Type:Provider Instructions for Treatment How to Access Health Informa tion Online using Patient Portal and [employer] Indication:Non-smoker Start:25-Jan-2022 Instruction Type:Patient Education Patient Instructions Indication:UTI (urinary tract infection), bacterial Start:07-Jan-2022 Instruction Type:Provider Instructions for Treatment How to Access Health Informa tion Online using Patient Portal and [employer] Indication:UTI (urinary tract infection), bacterial Start:07-Jan-2022 Instruction Type:Patient Education Patient Instructions Indication:Urinary frequency Start:03-Dec-2021 Instruction Type:Provider Instructions for Treatment How to Access Health Informa tion Online using Patient Portal and [employer] Indication:Urinary frequency Start:03-Dec-2021 Instruction Type:Patient Education Patient Instructions Indication:Diabetes mellitus type II, controlled Start:06-Nov-2021 Instruction Type:Provider Instructions for Treatment How to Access Health Informa tion Online using Patient Portal and [employer] Indication:Diabetes mellitus type II, controlled Start:06-Nov-2021 Instruction Type:Patient Education obesity counseling Indication:Diabetes mellitus type II, controlled Start:05-Aug-2021 Instruction Type:Provider Instructions for Treatment cardiovascular counseling Indication:Coronary artery disease Start:05-Aug-2021 Instruction Type:Provider Instructions for Treatment Patient Instructions Indication:BMI 31.0-31.9,adult Start:05-Aug-2021 Instruction Type:Provider Instructions for Treatment How to Access Health Informa tion Online using Patient Portal and [employer] Indication:BMI 31.0-31.9,adult Start:05-Aug-2021 Instruction Type:Patient Education Patient Instructions Indication:BMI 32.0-32.9,adult Start:09-Apr-2021 Instruction Type:Provider Instructions for Treatment How to Access Health Informa tion Online using Patient Portal and [employer] Indication:BMI 32.0-32.9,adult Start:09-Apr-2021 Instruction Type:Patient Education Patient Instructions Indication:BMI 32.0-32.9,adult Start:08-Jan-2021 Instruction Type:Provider Instructions for Treatment How to Access Health Informa tion Online using Patient Portal and [employer] Indication:BMI 32.0-32.9,adult Start:08-Jan-2021 Instruction Type:Patient Education Patient Instructions Indication:BMI 32.0-32.9,adult Start:08-Sep-2020 Instruction Type:Provider Instructions for Treatment How to Access Health Informa tion Online using Patient Portal and [employer] Indication:BMI 32.0-32.9,adult Start:08-Sep-2020 Instruction Type:Patient Education How to Access Health Informa tion Online using Patient Portal and [employer] Indication:Non-smoker Start:05-Jun-2020 Instruction Type:Patient Education Patient Instructions Indication:Non-smoker Start:05-Jun-2020 Instruction Type:Provider Instructions for Treatment How to Access Health Informa tion Online using Patient Portal and [employer] Indication:Non-smoker Start:20-Feb-2020 Instruction Type:Patient Education Patient Instructions Indication:Non-smoker Start:20-Feb-2020 Instruction Type:Provider Instructions for Treatment obesity counseling Indication:Diabetes mellitus type II, controlled Start:06-Dec-2019 Instruction Type:Provider Instructions for Treatment cardiovascular counseling Indication:Coronary artery disease Start:06-Dec-2019 Instruction Type:Provider Instructions for Treatment How to access health informa tion online Indication:BMI 32.0-32.9,adult Start:06-Dec-2019 Instruction Type:Patient Education How to access health informa tion online - Detail Indication:BMI 32.0-32.9,adult Start:06-Dec-2019 Instruction Type:Patient Education Patient Instructions Indication:BMI 32.0-32.9,adult Start:06-Dec-2019 Instruction Type:Provider Instructions for Treatment How to access health informa tion online Indication:Non-smoker Start:19-Nov-2019 Instruction Type:Patient Education How to access health informa tion online - Detail Indication:Non-smoker Start:19-Nov-2019 Instruction Type:Patient Education Patient Instructions Indication:Non-smoker Start:19-Nov-2019 Instruction Type:Provider Instructions for Treatment How to access health informa tion online Indication:Non-smoker Start:16-Aug-2019 Instruction Type:Patient Education How to access health informa tion online - Detail Indication:Non-smoker Start:16-Aug-2019 Instruction Type:Patient Education Patient Instructions Indication:Non-smoker Start:16-Aug-2019 Instruction Type:Provider Instructions for Treatment How to access health informa tion online Indication:Non-smoker Start:16-Apr-2019 Instruction Type:Patient Education How to access health informa tion online - Detail Indication:Non-smoker Start:16-Apr-2019 Instruction Type:Patient Education Patient Instructions Indication:Non-smoker Start:16-Apr-2019 Instruction Type:Provider Instructions for Treatment How to access health informa tion online Indication:Non-smoker Start:09-Feb-2019 Instruction Type:Patient Education How to access health informa tion online - Detail Indication:Non-smoker Start:09-Feb-2019 Instruction Type:Patient Education Patient Instructions Indication:BMI 32.0-32.9,adult Start:09-Feb-2019 Instruction Type:Provider Instructions for Treatment How to access health informa tion online Indication:Non-smoker Start:16-Aug-2018 Instruction Type:Patient Education How to access health informa tion online - Detail Indication:Non-smoker Start:16-Aug-2018 Instruction Type:Patient Education Patient Instructions Indication:Non-smoker Start:16-Aug-2018 Instruction Type:Provider Instructions for Treatment How to access health informa tion online Indication:BMI 32.0-32.9,adult Start:17-May-2018 Instruction Type:Patient Education How to access health informa tion online - Detail Indication:BMI 32.0-32.9,adult Start:17-May-2018 Instruction Type:Patient Education Patient Instructions Indication:BMI 32.0-32.9,adult Start:17-May-2018 Instruction Type:Provider Instructions for Treatment How to access health informa tion online Indication:Diabetes mellitus type II, controlled Start:21-Dec-2017 Instruction Type:Patient Education How to access health informa tion online - Detail Indication:Diabetes mellitus type II, controlled Start:21-Dec-2017 Instruction Type:Patient Education Patient Instructions Indication:Diabetes mellitus type II, controlled Start:21-Dec-2017 Instruction Type:Provider Instructions for Treatment How to access health informa tion online Indication:Diabetes mellitus type II, controlled Start:18-Aug-2017 Instruction Type:Patient Education How to access health informa tion online - Detail Indication:Diabetes mellitus type II, controlled Start:18-Aug-2017 Instruction Type:Patient Education Patient Instructions Indication:Diabetes mellitus type II, controlled Start:18-Aug-2017 Instruction Type:Provider Instructions for Treatment How to access health informa tion online Indication:Diabetes mellitus type II, controlled Start:21-Apr-2016 Instruction Type:Patient Education How to access health informa tion online - Detail Indication:Diabetes mellitus type II, controlled Start:21-Apr-2016 Instruction Type:Patient Education Patient Instructions Indication:Diabetes mellitus type II, controlled Start:21-Apr-2016 Instruction Type:Provider Instructions for Treatment How to access health informa tion online Indication:Hematuria Start:16-Feb-2016 Instruction Type:Patient Education How to access health informa tion online - Detail Indication:Hematuria Start:16-Feb-2016 Instruction Type:Patient Education Patient Instructions Indication:Hematuria Start:16-Feb-2016 Instruction Type:Provider Instructions for Treatment How to access health informa tion online Indication:Anxiety Start:09-Sep-2015 Instruction Type:Patient Education How to access health informa tion online - Detail Indication:Anxiety Start:09-Sep-2015 Instruction Type:Patient Education Patient Instructions Indication:Anxiety Start:09-Sep-2015 Instruction Type:Provider Instructions for Treatment How to access health informa tion online Indication:Anxiety Start:25-Jul-2015 Instruction Type:Patient Education How to access health informa tion online - Detail Indication:Anxiety Start:25-Jul-2015 Instruction Type:Patient Education Patient Instructions Indication:Anxiety Start:25-Jul-2015 Instruction Type:Provider Instructions for Treatment How to access health informa tion online Indication:Diabetes mellitus type II, controlled Start:03-Feb-2015 Instruction Type:Patient Education How to access health informa tion online - Detail Indication:Diabetes mellitus type II, controlled Start:03-Feb-2015 Instruction Type:Patient Education Patient Instructions Indication:Diabetes mellitus type II, controlled Start:03-Feb-2015 Instruction Type:Provider Instructions for Treatment How to access health informa tion online Indication:Contact dermatitis, contact dermatitis due to unspecified agent, unspecified contact dermatitis Start:09-Jan-2015 Instruction Type:Patient Education How to access health informa tion online - Detail Indication:Contact dermatitis, contact dermatitis due to unspecified agent, unspecified contact dermatitis Start:09-Jan-2015 Instruction Type:Patient Education Patient Instructions Indication:Contact dermatitis, contact dermatitis due to unspecified agent, unspecified contact dermatitis Start:09-Jan-2015 Instruction Type:Provider Instructions for Treatment How to access health informa tion online Indication:Diabetes mellitus type II, controlled Start:27-Aug-2014 Instruction Type:Patient Education How to access health informa tion online - Detail Indication:Diabetes mellitus type II, controlled Start:27-Aug-2014 Instruction Type:Patient Education Patient Instructions Indication:Diabetes mellitus type II, controlled Start:27-Aug-2014 Instruction Type:Provider Instructions for Treatment How to access health informa tion online - Detail Indication:Diabetes mellitus type II, controlled Start:30-Jul-2014 Instruction Type:Patient Education How to access health informa tion online Indication:Diabetes mellitus type II, controlled Start:30-Jul-2014 Instruction Type:Patient Education Patient Instructions Indication:Diabetes mellitus type II, controlled Start:30-Jul-2014 Instruction Type:Provider Instructions for Treatment Patient Instructions Indication:Diabetes mellitus type II, controlled Start:19-Dec-2012 Instruction Type:Provider Instructions for Treatment Patient Instructions Indication:Diabetes mellitus type II, controlled Start:11-Feb-2012 Instruction Type:Provider Instructions for Treatment [facility]; [facility] Work Phone: Instructions* Name Dates Details Patient Instructions Indication:Lip swelling Start:03-Dec-2022 Instruction Type:Provider Instructions for Treatment How to Access Health Informa tion Online using Patient Portal and [employer] Apps Indication:Lip swelling Start:03-Dec-2022 Instruction Type:Patient Education cardiovascular counseling Indication:Coronary artery disease Start:02-Aug-2022 Instruction Type:Provider Instructions for Treatment Patient Instructions Indication:Non-smoker Start:02-Aug-2022 Instruction Type:Provider Instructions for Treatment How to Access Health Informa tion Online using Patient Portal and [employer] Indication:Non-smoker Start:02-Aug-2022 Instruction Type:Patient Education Patient Instructions Indication:BMI 30.0-30.9,adult Start:15-Mar-2022 Instruction Type:Provider Instructions for Treatment How to Access Health Informa tion Online using Patient Portal and [employer] Indication:BMI 30.0-30.9,adult Start:15-Mar-2022 Instruction Type:Patient Education Patient Instructions Indication:Non-smoker Start:25-Jan-2022 Instruction Type:Provider Instructions for Treatment How to Access Health Informa tion Online using Patient Portal and [employer] Indication:Non-smoker Start:25-Jan-2022 Instruction Type:Patient Education Patient Instructions Indication:UTI (urinary tract infection), bacterial Start:07-Jan-2022 Instruction Type:Provider Instructions for Treatment How to Access Health Informa tion Online using Patient Portal and [employer] Indication:UTI (urinary tract infection), bacterial Start:07-Jan-2022 Instruction Type:Patient Education Patient Instructions Indication:Urinary frequency Start:03-Dec-2021 Instruction Type:Provider Instructions for Treatment How to Access Health Informa tion Online using Patient Portal and [employer] Indication:Urinary frequency Start:03-Dec-2021 Instruction Type:Patient Education Patient Instructions Indication:Diabetes mellitus type II, controlled Start:06-Nov-2021 Instruction Type:Provider Instructions for Treatment How to Access Health Informa tion Online using Patient Portal and [employer] Indication:Diabetes mellitus type II, controlled Start:06-Nov-2021 Instruction Type:Patient Education obesity counseling Indication:Diabetes mellitus type II, controlled Start:05-Aug-2021 Instruction Type:Provider Instructions for Treatment cardiovascular counseling Indication:Coronary artery disease Start:05-Aug-2021 Instruction Type:Provider Instructions for Treatment Patient Instructions Indication:BMI 31.0-31.9,adult Start:05-Aug-2021 Instruction Type:Provider Instructions for Treatment How to Access Health Informa tion Online using Patient Portal and [employer] Indication:BMI 31.0-31.9,adult Start:05-Aug-2021 Instruction Type:Patient Education Patient Instructions Indication:BMI 32.0-32.9,adult Start:09-Apr-2021 Instruction Type:Provider Instructions for Treatment How to Access Health Informa tion Online using Patient Portal and [employer] Apps Indication:BMI 32.0-32.9,adult Start:09-Apr-2021 Instruction Type:Patient Education Patient Instructions Indication:BMI 32.0-32.9,adult Start:08-Jan-2021 Instruction Type:Provider Instructions for Treatment How to Access Health Informa tion Online using Patient Portal and [employer] Indication:BMI 32.0-32.9,adult Start:08-Jan-2021 Instruction Type:Patient Education Patient Instructions Indication:BMI 32.0-32.9,adult Start:08-Sep-2020 Instruction Type:Provider Instructions for Treatment How to Access Health Informa tion Online using Patient Portal and [employer] Indication:BMI 32.0-32.9,adult Start:08-Sep-2020 Instruction Type:Patient Education How to Access Health Informa tion Online using Patient Portal and [employer] Apps Indication:Non-smoker Start:05-Jun-2020 Instruction Type:Patient Education Patient Instructions Indication:Non-smoker Start:05-Jun-2020 Instruction Type:Provider Instructions for Treatment How to Access Health Informa tion Online using Patient Portal and [employer] Apps Indication:Non-smoker Start:20-Feb-2020 Instruction Type:Patient Education Patient Instructions Indication:Non-smoker Start:20-Feb-2020 Instruction Type:Provider Instructions for Treatment obesity counseling Indication:Diabetes mellitus type II, controlled Start:06-Dec-2019 Instruction Type:Provider Instructions for Treatment cardiovascular counseling Indication:Coronary artery disease Start:06-Dec-2019 Instruction Type:Provider Instructions for Treatment How to access health informa tion online Indication:BMI 32.0-32.9,adult Start:06-Dec-2019 Instruction Type:Patient Education How to access health informa tion online - Detail Indication:BMI 32.0-32.9,adult Start:06-Dec-2019 Instruction Type:Patient Education Patient Instructions Indication:BMI 32.0-32.9,adult Start:06-Dec-2019 Instruction Type:Provider Instructions for Treatment How to access health informa tion online Indication:Non-smoker Start:19-Nov-2019 Instruction Type:Patient Education How to access health informa tion online - Detail Indication:Non-smoker Start:19-Nov-2019 Instruction Type:Patient Education Patient Instructions Indication:Non-smoker Start:19-Nov-2019 Instruction Type:Provider Instructions for Treatment How to access health informa tion online Indication:Non-smoker Start:16-Aug-2019 Instruction Type:Patient Education How to access health informa tion online - Detail Indication:Non-smoker Start:16-Aug-2019 Instruction Type:Patient Education Patient Instructions Indication:Non-smoker Start:16-Aug-2019 Instruction Type:Provider Instructions for Treatment How to access health informa tion online Indication:Non-smoker Start:16-Apr-2019 Instruction Type:Patient Education How to access health informa tion online - Detail Indication:Non-smoker Start:16-Apr-2019 Instruction Type:Patient Education Patient Instructions Indication:Non-smoker Start:16-Apr-2019 Instruction Type:Provider Instructions for Treatment How to access health informa tion online Indication:Non-smoker Start:09-Feb-2019 Instruction Type:Patient Education How to access health informa tion online - Detail Indication:Non-smoker Start:09-Feb-2019 Instruction Type:Patient Education Patient Instructions Indication:BMI 32.0-32.9,adult Start:09-Feb-2019 Instruction Type:Provider Instructions for Treatment How to access health informa tion online Indication:Non-smoker Start:16-Aug-2018 Instruction Type:Patient Education How to access health informa tion online - Detail Indication:Non-smoker Start:16-Aug-2018 Instruction Type:Patient Education Patient Instructions Indication:Non-smoker Start:16-Aug-2018 Instruction Type:Provider Instructions for Treatment How to access health informa tion online Indication:BMI 32.0-32.9,adult Start:17-May-2018 Instruction Type:Patient Education How to access health informa tion online - Detail Indication:BMI 32.0-32.9,adult Start:17-May-2018 Instruction Type:Patient Education Patient Instructions Indication:BMI 32.0-32.9,adult Start:17-May-2018 Instruction Type:Provider Instructions for Treatment How to access health informa tion online Indication:Diabetes mellitus type II, controlled Start:21-Dec-2017 Instruction Type:Patient Education How to access health informa tion online - Detail Indication:Diabetes mellitus type II, controlled Start:21-Dec-2017 Instruction Type:Patient Education Patient Instructions Indication:Diabetes mellitus type II, controlled Start:21-Dec-2017 Instruction Type:Provider Instructions for Treatment How to access health informa tion online Indication:Diabetes mellitus type II, controlled Start:18-Aug-2017 Instruction Type:Patient Education How to access health informa tion online - Detail Indication:Diabetes mellitus type II, controlled Start:18-Aug-2017 Instruction Type:Patient Education Patient Instructions Indication:Diabetes mellitus type II, controlled Start:18-Aug-2017 Instruction Type:Provider Instructions for Treatment How to access health informa tion online Indication:Diabetes mellitus type II, controlled Start:21-Apr-2016 Instruction Type:Patient Education How to access health informa tion online - Detail Indication:Diabetes mellitus type II, controlled Start:21-Apr-2016 Instruction Type:Patient Education Patient Instructions Indication:Diabetes mellitus type II, controlled Start:21-Apr-2016 Instruction Type:Provider Instructions for Treatment How to access health informa tion online Indication:Hematuria Start:16-Feb-2016 Instruction Type:Patient Education How to access health informa tion online - Detail Indication:Hematuria Start:16-Feb-2016 Instruction Type:Patient Education Patient Instructions Indication:Hematuria Start:16-Feb-2016 Instruction Type:Provider Instructions for Treatment How to access health informa tion online Indication:Anxiety Start:09-Sep-2015 Instruction Type:Patient Education How to access health informa tion online - Detail Indication:Anxiety Start:09-Sep-2015 Instruction Type:Patient Education Patient Instructions Indication:Anxiety Start:09-Sep-2015 Instruction Type:Provider Instructions for Treatment How to access health informa tion online Indication:Anxiety Start:25-Jul-2015 Instruction Type:Patient Education How to access health informa tion online - Detail Indication:Anxiety Start:25-Jul-2015 Instruction Type:Patient Education Patient Instructions Indication:Anxiety Start:25-Jul-2015 Instruction Type:Provider Instructions for Treatment How to access health informa tion online Indication:Diabetes mellitus type II, controlled Start:03-Feb-2015 Instruction Type:Patient Education How to access health informa tion online - Detail Indication:Diabetes mellitus type II, controlled Start:03-Feb-2015 Instruction Type:Patient Education Patient Instructions Indication:Diabetes mellitus type II, controlled Start:03-Feb-2015 Instruction Type:Provider Instructions for Treatment How to access health informa tion online Indication:Contact dermatitis, contact dermatitis due to unspecified agent, unspecified contact dermatitis Start:09-Jan-2015 Instruction Type:Patient Education How to access health informa tion online - Detail Indication:Contact dermatitis, contact dermatitis due to unspecified agent, unspecified contact dermatitis Start:09-Jan-2015 Instruction Type:Patient Education Patient Instructions Indication:Contact dermatitis, contact dermatitis due to unspecified agent, unspecified contact dermatitis Start:09-Jan-2015 Instruction Type:Provider Instructions for Treatment How to access health informa tion online Indication:Diabetes mellitus type II, controlled Start:27-Aug-2014 Instruction Type:Patient Education How to access health informa tion online - Detail Indication:Diabetes mellitus type II, controlled Start:27-Aug-2014 Instruction Type:Patient Education Patient Instructions Indication:Diabetes mellitus type II, controlled Start:27-Aug-2014 Instruction Type:Provider Instructions for Treatment How to access health informa tion online - Detail Indication:Diabetes mellitus type II, controlled Start:30-Jul-2014 Instruction Type:Patient Education How to access health informa tion online Indication:Diabetes mellitus type II, controlled Start:30-Jul-2014 Instruction Type:Patient Education Patient Instructions Indication:Diabetes mellitus type II, controlled Start:30-Jul-2014 Instruction Type:Provider Instructions for Treatment Patient Instructions Indication:Diabetes mellitus type II, controlled Start:19-Dec-2012 Instruction Type:Provider Instructions for Treatment Patient Instructions Indication:Diabetes mellitus type II, controlled Start:11-Feb-2012 Instruction Type:Provider Instructions for Treatment [facility]; [facility] Work Phone: Instructions* Name Dates Details Patient Instructions Indication:Lip swelling Start:03-Dec-2022 Instruction Type:Provider Instructions for Treatment How to Access Health Informa tion Online using Patient Portal and [employer] Indication:Lip swelling Start:03-Dec-2022 Instruction Type:Patient Education cardiovascular counseling Indication:Coronary artery disease Start:02-Aug-2022 Instruction Type:Provider Instructions for Treatment Patient Instructions Indication:Non-smoker Start:02-Aug-2022 Instruction Type:Provider Instructions for Treatment How to Access Health Informa tion Online using Patient Portal and [email or web address] Indication:Non-smoker Start:02-Aug-2022 Instruction Type:Patient Education Patient Instructions Indication:BMI 30.0-30.9,adult Start:15-Mar-2022 Instruction Type:Provider Instructions for Treatment How to Access Health Informa tion Online using Patient Portal and [employer] Indication:BMI 30.0-30.9,adult Start:15-Mar-2022 Instruction Type:Patient Education Patient Instructions Indication:Non-smoker Start:25-Jan-2022 Instruction Type:Provider Instructions for Treatment How to Access Health Informa tion Online using Patient Portal and [email or web address] Indication:Non-smoker Start:25-Jan-2022 Instruction Type:Patient Education Patient Instructions Indication:UTI (urinary tract infection), bacterial Start:07-Jan-2022 Instruction Type:Provider Instructions for Treatment How to Access Health Informa tion Online using Patient Portal and [employer] Indication:UTI (urinary tract infection), bacterial Start:07-Jan-2022 Instruction Type:Patient Education Patient Instructions Indication:Urinary frequency Start:03-Dec-2021 Instruction Type:Provider Instructions for Treatment How to Access Health Informa tion Online using Patient Portal and [employer] Indication:Urinary frequency Start:03-Dec-2021 Instruction Type:Patient Education Patient Instructions Indication:Diabetes mellitus type II, controlled Start:06-Nov-2021 Instruction Type:Provider Instructions for Treatment How to Access Health Informa tion Online using Patient Portal and [employer] Indication:Diabetes mellitus type II, controlled Start:06-Nov-2021 Instruction Type:Patient Education obesity counseling Indication:Diabetes mellitus type II, controlled Start:05-Aug-2021 Instruction Type:Provider Instructions for Treatment cardiovascular counseling Indication:Coronary artery disease Start:05-Aug-2021 Instruction Type:Provider Instructions for Treatment Patient Instructions Indication:BMI 31.0-31.9,adult Start:05-Aug-2021 Instruction Type:Provider Instructions for Treatment How to Access Health Informa tion Online using Patient Portal and 3rd [employer] Apps Indication:BMI 31.0-31.9,adult Start:05-Aug-2021 Instruction Type:Patient Education Patient Instructions Indication:BMI 32.0-32.9,adult Start:09-Apr-2021 Instruction Type:Provider Instructions for Treatment How to Access Health Informa tion Online using Patient Portal and 3rd [employer] Apps Indication:BMI 32.0-32.9,adult Start:09-Apr-2021 Instruction Type:Patient Education Patient Instructions Indication:BMI 32.0-32.9,adult Start:08-Jan-2021 Instruction Type:Provider Instructions for Treatment How to Access Health Informa tion Online using Patient Portal and 3rd [employer] Apps Indication:BMI 32.0-32.9,adult Start:08-Jan-2021 Instruction Type:Patient Education Patient Instructions Indication:BMI 32.0-32.9,adult Start:08-Sep-2020 Instruction Type:Provider Instructions for Treatment How to Access Health Informa tion Online using Patient Portal and 3rd [employer] Apps Indication:BMI 32.0-32.9,adult Start:08-Sep-2020 Instruction Type:Patient Education How to Access Health Informa tion Online using Patient Portal and 3rd [employer] Apps Indication:Non-smoker Start:05-Jun-2020 Instruction Type:Patient Education Patient Instructions Indication:Non-smoker Start:05-Jun-2020 Instruction Type:Provider Instructions for Treatment How to Access Health Informa tion Online using Patient Portal and 3rd [employer] Apps Indication:Non-smoker Start:20-Feb-2020 Instruction Type:Patient Education Patient Instructions Indication:Non-smoker Start:20-Feb-2020 Instruction Type:Provider Instructions for Treatment obesity counseling Indication:Diabetes mellitus type II, controlled Start:06-Dec-2019 Instruction Type:Provider Instructions for Treatment cardiovascular counseling Indication:Coronary artery disease Start:06-Dec-2019 Instruction Type:Provider Instructions for Treatment How to access health informa tion online Indication:BMI 32.0-32.9,adult Start:06-Dec-2019 Instruction Type:Patient Education How to access health informa tion online - Detail Indication:BMI 32.0-32.9,adult Start:06-Dec-2019 Instruction Type:Patient Education Patient Instructions Indication:BMI 32.0-32.9,adult Start:06-Dec-2019 Instruction Type:Provider Instructions for Treatment How to access health informa tion online Indication:Non-smoker Start:19-Nov-2019 Instruction Type:Patient Education How to access health informa tion online - Detail Indication:Non-smoker Start:19-Nov-2019 Instruction Type:Patient Education Patient Instructions Indication:Non-smoker Start:19-Nov-2019 Instruction Type:Provider Instructions for Treatment How to access health informa tion online Indication:Non-smoker Start:16-Aug-2019 Instruction Type:Patient Education How to access health informa tion online - Detail Indication:Non-smoker Start:16-Aug-2019 Instruction Type:Patient Education Patient Instructions Indication:Non-smoker Start:16-Aug-2019 Instruction Type:Provider Instructions for Treatment How to access health informa tion online Indication:Non-smoker Start:16-Apr-2019 Instruction Type:Patient Education How to access health informa tion online - Detail Indication:Non-smoker Start:16-Apr-2019 Instruction Type:Patient Education Patient Instructions Indication:Non-smoker Start:16-Apr-2019 Instruction Type:Provider Instructions for Treatment How to access health informa tion online Indication:Non-smoker Start:09-Feb-2019 Instruction Type:Patient Education How to access health informa tion online - Detail Indication:Non-smoker Start:09-Feb-2019 Instruction Type:Patient Education Patient Instructions Indication:BMI 32.0-32.9,adult Start:09-Feb-2019 Instruction Type:Provider Instructions for Treatment How to access health informa tion online Indication:Non-smoker Start:16-Aug-2018 Instruction Type:Patient Education How to access health informa tion online - Detail Indication:Non-smoker Start:16-Aug-2018 Instruction Type:Patient Education Patient Instructions Indication:Non-smoker Start:16-Aug-2018 Instruction Type:Provider Instructions for Treatment How to access health informa tion online Indication:BMI 32.0-32.9,adult Start:17-May-2018 Instruction Type:Patient Education How to access health informa tion online - Detail Indication:BMI 32.0-32.9,adult Start:17-May-2018 Instruction Type:Patient Education Patient Instructions Indication:BMI 32.0-32.9,adult Start:17-May-2018 Instruction Type:Provider Instructions for Treatment How to access health informa tion online Indication:Diabetes mellitus type II, controlled Start:21-Dec-2017 Instruction Type:Patient Education How to access health informa tion online - Detail Indication:Diabetes mellitus type II, controlled Start:21-Dec-2017 Instruction Type:Patient Education Patient Instructions Indication:Diabetes mellitus type II, controlled Start:21-Dec-2017 Instruction Type:Provider Instructions for Treatment How to access health informa tion online Indication:Diabetes mellitus type II, controlled Start:18-Aug-2017 Instruction Type:Patient Education How to access health informa tion online - Detail Indication:Diabetes mellitus type II, controlled Start:18-Aug-2017 Instruction Type:Patient Education Patient Instructions Indication:Diabetes mellitus type II, controlled Start:18-Aug-2017 Instruction Type:Provider Instructions for Treatment How to access health informa tion online Indication:Diabetes mellitus type II, controlled Start:21-Apr-2016 Instruction Type:Patient Education How to access health informa tion online - Detail Indication:Diabetes mellitus type II, controlled Start:21-Apr-2016 Instruction Type:Patient Education Patient Instructions Indication:Diabetes mellitus type II, controlled Start:21-Apr-2016 Instruction Type:Provider Instructions for Treatment How to access health informa tion online Indication:Hematuria Start:16-Feb-2016 Instruction Type:Patient Education How to access health informa tion online - Detail Indication:Hematuria Start:16-Feb-2016 Instruction Type:Patient Education Patient Instructions Indication:Hematuria Start:16-Feb-2016 Instruction Type:Provider Instructions for Treatment How to access health informa tion online Indication:Anxiety Start:09-Sep-2015 Instruction Type:Patient Education How to access health informa tion online - Detail Indication:Anxiety Start:09-Sep-2015 Instruction Type:Patient Education Patient Instructions Indication:Anxiety Start:09-Sep-2015 Instruction Type:Provider Instructions for Treatment How to access health informa tion online Indication:Anxiety Start:25-Jul-2015 Instruction Type:Patient Education How to access health informa tion online - Detail Indication:Anxiety Start:25-Jul-2015 Instruction Type:Patient Education Patient Instructions Indication:Anxiety Start:25-Jul-2015 Instruction Type:Provider Instructions for Treatment How to access health informa tion online Indication:Diabetes mellitus type II, controlled Start:03-Feb-2015 Instruction Type:Patient Education How to access health informa tion online - Detail Indication:Diabetes mellitus type II, controlled Start:03-Feb-2015 Instruction Type:Patient Education Patient Instructions Indication:Diabetes mellitus type II, controlled Start:03-Feb-2015 Instruction Type:Provider Instructions for Treatment How to access health informa tion online Indication:Contact dermatitis, contact dermatitis due to unspecified agent, unspecified contact dermatitis Start:09-Jan-2015 Instruction Type:Patient Education How to access health informa tion online - Detail Indication:Contact dermatitis, contact dermatitis due to unspecified agent, unspecified contact dermatitis Start:09-Jan-2015 Instruction Type:Patient Education Patient Instructions Indication:Contact dermatitis, contact dermatitis due to unspecified agent, unspecified contact dermatitis Start:09-Jan-2015 Instruction Type:Provider Instructions for Treatment How to access health informa tion online Indication:Diabetes mellitus type II, controlled Start:27-Aug-2014 Instruction Type:Patient Education How to access health informa tion online - Detail Indication:Diabetes mellitus type II, controlled Start:27-Aug-2014 Instruction Type:Patient Education Patient Instructions Indication:Diabetes mellitus type II, controlled Start:27-Aug-2014 Instruction Type:Provider Instructions for Treatment How to access health informa tion online - Detail Indication:Diabetes mellitus type II, controlled Start:30-Jul-2014 Instruction Type:Patient Education How to access health informa tion online Indication:Diabetes mellitus type II, controlled Start:30-Jul-2014 Instruction Type:Patient Education Patient Instructions Indication:Diabetes mellitus type II, controlled Start:30-Jul-2014 Instruction Type:Provider Instructions for Treatment Patient Instructions Indication:Diabetes mellitus type II, controlled Start:19-Dec-2012 Instruction Type:Provider Instructions for Treatment Patient Instructions Indication:Diabetes mellitus type II, controlled Start:11-Feb-2012 Instruction Type:Provider Instructions for Treatment [facility] Work Phone: reason for referral (narrative)No reason for referral information available[facility] Work [facility]: Family History No Family History Records FoundUnknown Family Member Name Dates Details Brother 1 Comments:heart disease Status:Active Father Comments:heart disease Status:Active Mother Comments:HTN Status:Active Unknown Family Member Name Dates Details Brother 1 Comments:heart disease Status:Active Father Comments:heart disease Status:Active Mother Comments:HTN Status:Active Unknown Family Member Name Dates Details Brother 1 Comments:heart disease Status:Active Father Comments:heart disease Status:Active Mother Comments:HTN Status:Active Unknown Family Member Name Dates Details Brother 1 Comments:heart disease Status:Active Father Comments:heart disease Status:Active Mother Comments:HTN Status:Active Unknown Family Member Name Dates Details Brother 1 Comments:heart disease Status:Active Father Comments:heart disease Status:Active Mother Comments:HTN Status:Active Unknown Family Member Name Dates Details Brother 1 Comments:heart disease Status:Active Father Comments:heart disease Status:Active Mother Comments:HTN Status:Active Unknown Family Member Name Dates Details Brother 1 Comments:heart disease Status:Active Father Comments:heart disease Status:Active Mother Comments:HTN Status:Active Unknown Family Member Name Dates Details Brother 1 Comments:heart disease Status:Active Father Comments:heart disease Status:Active Mother Comments:HTN Status:Active Unknown Family Member Name Dates Details Brother 1 Comments:heart disease Status:Active Father Comments:heart disease Status:Active Mother Comments:HTN Status:Active Unknown Family Member Name Dates Details Brother 1 Comments:heart disease Status:Active Father Comments:heart disease Status:Active Mother Comments:HTN Status:Active Unknown Family Member Name Dates Details Brother 1 Comments:heart disease Status:Active Father Comments:heart disease Status:Active Mother Comments:HTN Status:Active Unknown Family Member Name Dates Details Brother 1 Comments:heart disease Status:Active Father Comments:heart disease Status:Active Mother Comments:HTN Status:Active Unknown Family Member Name Dates Details Brother 1 Comments:heart disease Status:Active Father Comments:heart disease Status:Active Mother Comments:HTN Status:Active Unknown Family Member Name Dates Details Brother 1 Comments:heart disease Status:Active Father Comments:heart disease Status:Active Mother Comments:HTN Status:Active Unknown Family Member Name Dates Details Brother 1 Comments:heart disease Status:Active Father Comments:heart disease Status:Active Mother Comments:HTN Status:Active Unknown Family Member Name Dates Details Brother 1 Comments:heart disease Status:Active Father Comments:heart disease Status:Active Mother Comments:HTN Status:Active Unknown Family Member Name Dates Details Brother 1 Comments:heart disease Status:Active Father Comments:heart disease Status:Active Mother Comments:HTN Status:Active Unknown Family Member Name Dates Details Brother 1 Comments:heart disease Status:Active Father Comments:heart disease Status:Active Mother Comments:HTN Status:Active Unknown Family Member Name Dates Details Brother 1 Comments:heart disease Status:Active Father Comments:heart disease Status:Active Mother Comments:HTN Status:Active Unknown Family Member Name Dates Details Brother 1 Comments:heart disease Status:Active Father Comments:heart disease Status:Active Mother Comments:HTN Status:Active Unknown Family Member Name Dates Details Brother 1 Comments:heart disease Status:Active Father Comments:heart disease Status:Active Mother Comments:HTN Status:Active Unknown Family Member Name Dates Details Brother 1 Comments:heart disease Status:Active Father Comments:heart disease Status:Active Mother Comments:HTN Status:Active Unknown Family Member Name Dates Details Brother 1 Comments:heart disease Status:Active Father Comments:heart disease Status:Active Mother Comments:HTN Status:Active Unknown Family Member Name Dates Details Brother 1 Comments:heart disease Status:Active Father Comments:heart disease Status:Active Mother Comments:HTN Status:Active Unknown Family Member Name Dates Details Brother 1 Comments:heart disease Status:Active Father Comments:heart disease Status:Active Mother Comments:HTN Status:Active Unknown Family Member Name Dates Details Brother 1 Comments:heart disease Status:Active Father Comments:heart disease Status:Active Mother Comments:HTN Status:Active Unknown Family Member Name Dates Details Brother 1 Comments:heart disease Status:Active Father Comments:heart disease Status:Active Mother Comments:HTN Status:Active Unknown Family Member Name Dates Details Brother 1 Comments:heart disease Status:Active Father Comments:heart disease Status:Active Mother Comments:HTN Status:Active Unknown Family Member Name Dates Details Brother 1 Comments:heart disease Status:Active Father Comments:heart disease Status:Active Mother Comments:HTN Status:Active Unknown Family Member Name Dates Details Brother 1 Comments:heart disease Status:Active Father Comments:heart disease Status:Active Mother Comments:HTN Status:Active Unknown Family Member Name Dates Details Brother 1 Comments:heart disease Status:Active Father Comments:heart disease Status:Active Mother Comments:HTN Status:Active Unknown Family Member Name Dates Details Brother 1 Comments:heart disease Status:Active Father Comments:heart disease Status:Active Mother Comments:HTN Status:Active Unknown Family Member Name Dates Details Brother 1 Comments:heart disease Status:Active Father Comments:heart disease Status:Active Mother Comments:HTN Status:Active Unknown Family Member Name Dates Details Brother 1 Comments:heart disease Status:Active Father Comments:heart disease Status:Active Mother Comments:HTN Status:Active Unknown Family Member Name Dates Details Brother 1 Comments:heart disease Status:Active Father Comments:heart disease Status:Active Mother Comments:HTN Status:Active Unknown Family Member Name Dates Details Brother 1 Comments:heart disease Status:Active Father Comments:heart disease Status:Active Mother Comments:HTN Status:Active Unknown Family Member Name Dates Details Brother 1 Comments:heart disease Status:Active Father Comments:heart disease Status:Active Mother Comments:HTN Status:Active Unknown Family Member Name Dates Details Brother 1 Comments:heart disease Status:Active Father Comments:heart disease Status:Active Mother Comments:HTN Status:Active Unknown Family Member Name Dates Details Brother 1 Comments:heart disease Status:Active Father Comments:heart disease Status:Active Mother Comments:HTN Status:Active Unknown Family Member Name Dates Details Brother 1 Comments:heart disease Status:Active Father Comments:heart disease Status:Active Mother Comments:HTN Status:Active Unknown Family Member Name Dates Details Brother 1 Comments:heart disease Status:Active Father Comments:heart disease Status:Active Mother Comments:HTN Status:Active Unknown Family Member Name Dates Details Brother 1 Comments:heart disease Status:Active Father Comments:heart disease Status:Active Mother Comments:HTN Status:Active Relationship Condition Age at Onset Recorded Date/T sha mother Hypertension Unknown father Cardiac disease Unknown brother Cardiac disease Unknown Instructions Name Dates Details Diabetes mellitus type II, c ontrolled : How to access health information online Indication:Diabetes mellitus type II, controlled Diabetes mellitus type II, c ontrolled : How to access health information online - Detail Indication:Diabetes mellitus type II, controlled Diabetes mellitus type II, c ontrolled : Patient Instructions Indication:Diabetes mellitus type II, controlled Hematuria : How to access he alth information online Indication:Hematuria Hematuria : How to access he alth information online - Detail Indication:Hematuria Hematuria : Patient Instruct ions Indication:Hematuria Anxiety : How to access heal th information online Indication:Anxiety Anxiety : How to access heal th information online - Detail Indication:Anxiety Anxiety : Patient Instructio ns Indication:Anxiety Contact dermatitis, contact dermatitis due to unspecified agent, unspecified contact dermatitis : How to access health information online Indication:Contact dermatitis, contact dermatitis due to unspecified agent, unspecified contact dermatitis Contact dermatitis, contact dermatitis due to unspecified agent, unspecified contact dermatitis : How to access health information online - Detail Indication:Contact dermatitis, contact dermatitis due to unspecified agent, unspecified contact dermatitis Contact dermatitis, contact dermatitis due to unspecified agent, unspecified contact dermatitis : Patient Instructions Indication:Contact dermatitis, contact dermatitis due to unspecified agent, unspecified contact dermatitis Name Dates Details BMI 32.0-32.9,adult : How to access health information online Indication:BMI 32.0-32.9,adult BMI 32.0-32.9,adult : How to access health information online - Detail Indication:BMI 32.0-32.9,adult BMI 32.0-32.9,adult : Patien t Instructions Indication:BMI 32.0-32.9,adult Diabetes mellitus type II, c ontrolled : How to access health information online Indication:Diabetes mellitus type II, controlled Diabetes mellitus type II, c ontrolled : How to access health information online - Detail Indication:Diabetes mellitus type II, controlled Diabetes mellitus type II, c ontrolled : Patient Instructions Indication:Diabetes mellitus type II, controlled Hematuria : How to access he alth information online Indication:Hematuria Hematuria : How to access he alth information online - Detail Indication:Hematuria Hematuria : Patient Instruct ions Indication:Hematuria Anxiety : How to access heal th information online Indication:Anxiety Anxiety : How to access heal th information online - Detail Indication:Anxiety Anxiety : Patient Instructio ns Indication:Anxiety Contact dermatitis, contact dermatitis due to unspecified agent, unspecified contact dermatitis : How to access health information online Indication:Contact dermatitis, contact dermatitis due to unspecified agent, unspecified contact dermatitis Contact dermatitis, contact dermatitis due to unspecified agent, unspecified contact dermatitis : How to access health information online - Detail Indication:Contact dermatitis, contact dermatitis due to unspecified agent, unspecified contact dermatitis Contact dermatitis, contact dermatitis due to unspecified agent, unspecified contact dermatitis : Patient Instructions Indication:Contact dermatitis, contact dermatitis due to unspecified agent, unspecified contact dermatitis Name Dates Details How to access health informa tion online Indication:Non-smoker Start:16-Aug-2018 Instruction Type:Patient Education How to access health informa tion online - Detail Indication:Non-smoker Start:16-Aug-2018 Instruction Type:Patient Education Patient Instructions Indication:Non-smoker Start:16-Aug-2018 Instruction Type:Provider Instructions for Treatment How to access health informa tion online Indication:BMI 32.0-32.9,adult Start:17-May-2018 Instruction Type:Patient Education How to access health informa tion online - Detail Indication:BMI 32.0-32.9,adult Start:17-May-2018 Instruction Type:Patient Education Patient Instructions Indication:BMI 32.0-32.9,adult Start:17-May-2018 Instruction Type:Provider Instructions for Treatment How to access health informa tion online Indication:Diabetes mellitus type II, controlled Start:21-Dec-2017 Instruction Type:Patient Education How to access health informa tion online - Detail Indication:Diabetes mellitus type II, controlled Start:21-Dec-2017 Instruction Type:Patient Education Patient Instructions Indication:Diabetes mellitus type II, controlled Start:21-Dec-2017 Instruction Type:Provider Instructions for Treatment How to access health informa tion online Indication:Diabetes mellitus type II, controlled Start:18-Aug-2017 Instruction Type:Patient Education How to access health informa tion online - Detail Indication:Diabetes mellitus type II, controlled Start:18-Aug-2017 Instruction Type:Patient Education Patient Instructions Indication:Diabetes mellitus type II, controlled Start:18-Aug-2017 Instruction Type:Provider Instructions for Treatment How to access health informa tion online Indication:Diabetes mellitus type II, controlled Start:21-Apr-2016 Instruction Type:Patient Education How to access health informa tion online - Detail Indication:Diabetes mellitus type II, controlled Start:21-Apr-2016 Instruction Type:Patient Education Patient Instructions Indication:Diabetes mellitus type II, controlled Start:21-Apr-2016 Instruction Type:Provider Instructions for Treatment How to access health informa tion online Indication:Hematuria Start:16-Feb-2016 Instruction Type:Patient Education How to access health informa tion online - Detail Indication:Hematuria Start:16-Feb-2016 Instruction Type:Patient Education Patient Instructions Indication:Hematuria Start:16-Feb-2016 Instruction Type:Provider Instructions for Treatment How to access health informa tion online Indication:Anxiety Start:09-Sep-2015 Instruction Type:Patient Education How to access health informa tion online - Detail Indication:Anxiety Start:09-Sep-2015 Instruction Type:Patient Education Patient Instructions Indication:Anxiety Start:09-Sep-2015 Instruction Type:Provider Instructions for Treatment How to access health informa tion online Indication:Anxiety Start:25-Jul-2015 Instruction Type:Patient Education How to access health informa tion online - Detail Indication:Anxiety Start:25-Jul-2015 Instruction Type:Patient Education Patient Instructions Indication:Anxiety Start:25-Jul-2015 Instruction Type:Provider Instructions for Treatment How to access health informa tion online Indication:Diabetes mellitus type II, controlled Start:03-Feb-2015 Instruction Type:Patient Education How to access health informa tion online - Detail Indication:Diabetes mellitus type II, controlled Start:03-Feb-2015 Instruction Type:Patient Education Patient Instructions Indication:Diabetes mellitus type II, controlled Start:03-Feb-2015 Instruction Type:Provider Instructions for Treatment How to access health informa tion online Indication:Contact dermatitis, contact dermatitis due to unspecified agent, unspecified contact dermatitis Start:09-Jan-2015 Instruction Type:Patient Education How to access health informa tion online - Detail Indication:Contact dermatitis, contact dermatitis due to unspecified agent, unspecified contact dermatitis Start:09-Jan-2015 Instruction Type:Patient Education Patient Instructions Indication:Contact dermatitis, contact dermatitis due to unspecified agent, unspecified contact dermatitis Start:09-Jan-2015 Instruction Type:Provider Instructions for Treatment How to access health informa tion online Indication:Diabetes mellitus type II, controlled Start:27-Aug-2014 Instruction Type:Patient Education How to access health informa tion online - Detail Indication:Diabetes mellitus type II, controlled Start:27-Aug-2014 Instruction Type:Patient Education Patient Instructions Indication:Diabetes mellitus type II, controlled Start:27-Aug-2014 Instruction Type:Provider Instructions for Treatment How to access health informa tion online - Detail Indication:Diabetes mellitus type II, controlled Start:30-Jul-2014 Instruction Type:Patient Education How to access health informa tion online Indication:Diabetes mellitus type II, controlled Start:30-Jul-2014 Instruction Type:Patient Education Patient Instructions Indication:Diabetes mellitus type II, controlled Start:30-Jul-2014 Instruction Type:Provider Instructions for Treatment Patient Instructions Indication:Diabetes mellitus type II, controlled Start:19-Dec-2012 Instruction Type:Provider Instructions for Treatment Patient Instructions Indication:Diabetes mellitus type II, controlled Start:11-Feb-2012 Instruction Type:Provider Instructions for Treatment Name Dates Details How to access health informa tion online Indication:Non-smoker Start:16-Aug-2018 Instruction Type:Patient Education How to access health informa tion online - Detail Indication:Non-smoker Start:16-Aug-2018 Instruction Type:Patient Education Patient Instructions Indication:Non-smoker Start:16-Aug-2018 Instruction Type:Provider Instructions for Treatment How to access health informa tion online Indication:BMI 32.0-32.9,adult Start:17-May-2018 Instruction Type:Patient Education How to access health informa tion online - Detail Indication:BMI 32.0-32.9,adult Start:17-May-2018 Instruction Type:Patient Education Patient Instructions Indication:BMI 32.0-32.9,adult Start:17-May-2018 Instruction Type:Provider Instructions for Treatment How to access health informa tion online Indication:Diabetes mellitus type II, controlled Start:21-Dec-2017 Instruction Type:Patient Education How to access health informa tion online - Detail Indication:Diabetes mellitus type II, controlled Start:21-Dec-2017 Instruction Type:Patient Education Patient Instructions Indication:Diabetes mellitus type II, controlled Start:21-Dec-2017 Instruction Type:Provider Instructions for Treatment How to access health informa tion online Indication:Diabetes mellitus type II, controlled Start:18-Aug-2017 Instruction Type:Patient Education How to access health informa tion online - Detail Indication:Diabetes mellitus type II, controlled Start:18-Aug-2017 Instruction Type:Patient Education Patient Instructions Indication:Diabetes mellitus type II, controlled Start:18-Aug-2017 Instruction Type:Provider Instructions for Treatment How to access health informa tion online Indication:Diabetes mellitus type II, controlled Start:21-Apr-2016 Instruction Type:Patient Education How to access health informa tion online - Detail Indication:Diabetes mellitus type II, controlled Start:21-Apr-2016 Instruction Type:Patient Education Patient Instructions Indication:Diabetes mellitus type II, controlled Start:21-Apr-2016 Instruction Type:Provider Instructions for Treatment How to access health informa tion online Indication:Hematuria Start:16-Feb-2016 Instruction Type:Patient Education How to access health informa tion online - Detail Indication:Hematuria Start:16-Feb-2016 Instruction Type:Patient Education Patient Instructions Indication:Hematuria Start:16-Feb-2016 Instruction Type:Provider Instructions for Treatment How to access health informa tion online Indication:Anxiety Start:09-Sep-2015 Instruction Type:Patient Education How to access health informa tion online - Detail Indication:Anxiety Start:09-Sep-2015 Instruction Type:Patient Education Patient Instructions Indication:Anxiety Start:09-Sep-2015 Instruction Type:Provider Instructions for Treatment How to access health informa tion online Indication:Anxiety Start:25-Jul-2015 Instruction Type:Patient Education How to access health informa tion online - Detail Indication:Anxiety Start:25-Jul-2015 Instruction Type:Patient Education Patient Instructions Indication:Anxiety Start:25-Jul-2015 Instruction Type:Provider Instructions for Treatment How to access health informa tion online Indication:Diabetes mellitus type II, controlled Start:03-Feb-2015 Instruction Type:Patient Education How to access health informa tion online - Detail Indication:Diabetes mellitus type II, controlled Start:03-Feb-2015 Instruction Type:Patient Education Patient Instructions Indication:Diabetes mellitus type II, controlled Start:03-Feb-2015 Instruction Type:Provider Instructions for Treatment How to access health informa tion online Indication:Contact dermatitis, contact dermatitis due to unspecified agent, unspecified contact dermatitis Start:09-Jan-2015 Instruction Type:Patient Education How to access health informa tion online - Detail Indication:Contact dermatitis, contact dermatitis due to unspecified agent, unspecified contact dermatitis Start:09-Jan-2015 Instruction Type:Patient Education Patient Instructions Indication:Contact dermatitis, contact dermatitis due to unspecified agent, unspecified contact dermatitis Start:09-Jan-2015 Instruction Type:Provider Instructions for Treatment How to access health informa tion online Indication:Diabetes mellitus type II, controlled Start:27-Aug-2014 Instruction Type:Patient Education How to access health informa tion online - Detail Indication:Diabetes mellitus type II, controlled Start:27-Aug-2014 Instruction Type:Patient Education Patient Instructions Indication:Diabetes mellitus type II, controlled Start:27-Aug-2014 Instruction Type:Provider Instructions for Treatment How to access health informa tion online - Detail Indication:Diabetes mellitus type II, controlled Start:30-Jul-2014 Instruction Type:Patient Education How to access health informa tion online Indication:Diabetes mellitus type II, controlled Start:30-Jul-2014 Instruction Type:Patient Education Patient Instructions Indication:Diabetes mellitus type II, controlled Start:30-Jul-2014 Instruction Type:Provider Instructions for Treatment Patient Instructions Indication:Diabetes mellitus type II, controlled Start:19-Dec-2012 Instruction Type:Provider Instructions for Treatment Patient Instructions Indication:Diabetes mellitus type II, controlled Start:11-Feb-2012 Instruction Type:Provider Instructions for Treatment Name Dates Details How to access health informa tion online Indication:Non-smoker Start:16-Aug-2018 Instruction Type:Patient Education How to access health informa tion online - Detail Indication:Non-smoker Start:16-Aug-2018 Instruction Type:Patient Education Patient Instructions Indication:Non-smoker Start:16-Aug-2018 Instruction Type:Provider Instructions for Treatment How to access health informa tion online Indication:BMI 32.0-32.9,adult Start:17-May-2018 Instruction Type:Patient Education How to access health informa tion online - Detail Indication:BMI 32.0-32.9,adult Start:17-May-2018 Instruction Type:Patient Education Patient Instructions Indication:BMI 32.0-32.9,adult Start:17-May-2018 Instruction Type:Provider Instructions for Treatment How to access health informa tion online Indication:Diabetes mellitus type II, controlled Start:21-Dec-2017 Instruction Type:Patient Education How to access health informa tion online - Detail Indication:Diabetes mellitus type II, controlled Start:21-Dec-2017 Instruction Type:Patient Education Patient Instructions Indication:Diabetes mellitus type II, controlled Start:21-Dec-2017 Instruction Type:Provider Instructions for Treatment How to access health informa tion online Indication:Diabetes mellitus type II, controlled Start:18-Aug-2017 Instruction Type:Patient Education How to access health informa tion online - Detail Indication:Diabetes mellitus type II, controlled Start:18-Aug-2017 Instruction Type:Patient Education Patient Instructions Indication:Diabetes mellitus type II, controlled Start:18-Aug-2017 Instruction Type:Provider Instructions for Treatment How to access health informa tion online Indication:Diabetes mellitus type II, controlled Start:21-Apr-2016 Instruction Type:Patient Education How to access health informa tion online - Detail Indication:Diabetes mellitus type II, controlled Start:21-Apr-2016 Instruction Type:Patient Education Patient Instructions Indication:Diabetes mellitus type II, controlled Start:21-Apr-2016 Instruction Type:Provider Instructions for Treatment How to access health informa tion online Indication:Hematuria Start:16-Feb-2016 Instruction Type:Patient Education How to access health informa tion online - Detail Indication:Hematuria Start:16-Feb-2016 Instruction Type:Patient Education Patient Instructions Indication:Hematuria Start:16-Feb-2016 Instruction Type:Provider Instructions for Treatment How to access health informa tion online Indication:Anxiety Start:09-Sep-2015 Instruction Type:Patient Education How to access health informa tion online - Detail Indication:Anxiety Start:09-Sep-2015 Instruction Type:Patient Education Patient Instructions Indication:Anxiety Start:09-Sep-2015 Instruction Type:Provider Instructions for Treatment How to access health informa tion online Indication:Anxiety Start:25-Jul-2015 Instruction Type:Patient Education How to access health informa tion online - Detail Indication:Anxiety Start:25-Jul-2015 Instruction Type:Patient Education Patient Instructions Indication:Anxiety Start:25-Jul-2015 Instruction Type:Provider Instructions for Treatment How to access health informa tion online Indication:Diabetes mellitus type II, controlled Start:03-Feb-2015 Instruction Type:Patient Education How to access health informa tion online - Detail Indication:Diabetes mellitus type II, controlled Start:03-Feb-2015 Instruction Type:Patient Education Patient Instructions Indication:Diabetes mellitus type II, controlled Start:03-Feb-2015 Instruction Type:Provider Instructions for Treatment How to access health informa tion online Indication:Contact dermatitis, contact dermatitis due to unspecified agent, unspecified contact dermatitis Start:09-Jan-2015 Instruction Type:Patient Education How to access health informa tion online - Detail Indication:Contact dermatitis, contact dermatitis due to unspecified agent, unspecified contact dermatitis Start:09-Jan-2015 Instruction Type:Patient Education Patient Instructions Indication:Contact dermatitis, contact dermatitis due to unspecified agent, unspecified contact dermatitis Start:09-Jan-2015 Instruction Type:Provider Instructions for Treatment How to access health informa tion online Indication:Diabetes mellitus type II, controlled Start:27-Aug-2014 Instruction Type:Patient Education How to access health informa tion online - Detail Indication:Diabetes mellitus type II, controlled Start:27-Aug-2014 Instruction Type:Patient Education Patient Instructions Indication:Diabetes mellitus type II, controlled Start:27-Aug-2014 Instruction Type:Provider Instructions for Treatment How to access health informa tion online - Detail Indication:Diabetes mellitus type II, controlled Start:30-Jul-2014 Instruction Type:Patient Education How to access health informa tion online Indication:Diabetes mellitus type II, controlled Start:30-Jul-2014 Instruction Type:Patient Education Patient Instructions Indication:Diabetes mellitus type II, controlled Start:30-Jul-2014 Instruction Type:Provider Instructions for Treatment Patient Instructions Indication:Diabetes mellitus type II, controlled Start:19-Dec-2012 Instruction Type:Provider Instructions for Treatment Patient Instructions Indication:Diabetes mellitus type II, controlled Start:11-Feb-2012 Instruction Type:Provider Instructions for Treatment Name Dates Details How to access health informa tion online Indication:Non-smoker Start:16-Aug-2018 Instruction Type:Patient Education How to access health informa tion online - Detail Indication:Non-smoker Start:16-Aug-2018 Instruction Type:Patient Education Patient Instructions Indication:Non-smoker Start:16-Aug-2018 Instruction Type:Provider Instructions for Treatment How to access health informa tion online Indication:BMI 32.0-32.9,adult Start:17-May-2018 Instruction Type:Patient Education How to access health informa tion online - Detail Indication:BMI 32.0-32.9,adult Start:17-May-2018 Instruction Type:Patient Education Patient Instructions Indication:BMI 32.0-32.9,adult Start:17-May-2018 Instruction Type:Provider Instructions for Treatment How to access health informa tion online Indication:Diabetes mellitus type II, controlled Start:21-Dec-2017 Instruction Type:Patient Education How to access health informa tion online - Detail Indication:Diabetes mellitus type II, controlled Start:21-Dec-2017 Instruction Type:Patient Education Patient Instructions Indication:Diabetes mellitus type II, controlled Start:21-Dec-2017 Instruction Type:Provider Instructions for Treatment How to access health informa tion online Indication:Diabetes mellitus type II, controlled Start:18-Aug-2017 Instruction Type:Patient Education How to access health informa tion online - Detail Indication:Diabetes mellitus type II, controlled Start:18-Aug-2017 Instruction Type:Patient Education Patient Instructions Indication:Diabetes mellitus type II, controlled Start:18-Aug-2017 Instruction Type:Provider Instructions for Treatment How to access health informa tion online Indication:Diabetes mellitus type II, controlled Start:21-Apr-2016 Instruction Type:Patient Education How to access health informa tion online - Detail Indication:Diabetes mellitus type II, controlled Start:21-Apr-2016 Instruction Type:Patient Education Patient Instructions Indication:Diabetes mellitus type II, controlled Start:21-Apr-2016 Instruction Type:Provider Instructions for Treatment How to access health informa tion online Indication:Hematuria Start:16-Feb-2016 Instruction Type:Patient Education How to access health informa tion online - Detail Indication:Hematuria Start:16-Feb-2016 Instruction Type:Patient Education Patient Instructions Indication:Hematuria Start:16-Feb-2016 Instruction Type:Provider Instructions for Treatment How to access health informa tion online Indication:Anxiety Start:09-Sep-2015 Instruction Type:Patient Education How to access health informa tion online - Detail Indication:Anxiety Start:09-Sep-2015 Instruction Type:Patient Education Patient Instructions Indication:Anxiety Start:09-Sep-2015 Instruction Type:Provider Instructions for Treatment How to access health informa tion online Indication:Anxiety Start:25-Jul-2015 Instruction Type:Patient Education How to access health informa tion online - Detail Indication:Anxiety Start:25-Jul-2015 Instruction Type:Patient Education Patient Instructions Indication:Anxiety Start:25-Jul-2015 Instruction Type:Provider Instructions for Treatment How to access health informa tion online Indication:Diabetes mellitus type II, controlled Start:03-Feb-2015 Instruction Type:Patient Education How to access health informa tion online - Detail Indication:Diabetes mellitus type II, controlled Start:03-Feb-2015 Instruction Type:Patient Education Patient Instructions Indication:Diabetes mellitus type II, controlled Start:03-Feb-2015 Instruction Type:Provider Instructions for Treatment How to access health informa tion online Indication:Contact dermatitis, contact dermatitis due to unspecified agent, unspecified contact dermatitis Start:09-Jan-2015 Instruction Type:Patient Education How to access health informa tion online - Detail Indication:Contact dermatitis, contact dermatitis due to unspecified agent, unspecified contact dermatitis Start:09-Jan-2015 Instruction Type:Patient Education Patient Instructions Indication:Contact dermatitis, contact dermatitis due to unspecified agent, unspecified contact dermatitis Start:09-Jan-2015 Instruction Type:Provider Instructions for Treatment How to access health informa tion online Indication:Diabetes mellitus type II, controlled Start:27-Aug-2014 Instruction Type:Patient Education How to access health informa tion online - Detail Indication:Diabetes mellitus type II, controlled Start:27-Aug-2014 Instruction Type:Patient Education Patient Instructions Indication:Diabetes mellitus type II, controlled Start:27-Aug-2014 Instruction Type:Provider Instructions for Treatment How to access health informa tion online - Detail Indication:Diabetes mellitus type II, controlled Start:30-Jul-2014 Instruction Type:Patient Education How to access health informa tion online Indication:Diabetes mellitus type II, controlled Start:30-Jul-2014 Instruction Type:Patient Education Patient Instructions Indication:Diabetes mellitus type II, controlled Start:30-Jul-2014 Instruction Type:Provider Instructions for Treatment Patient Instructions Indication:Diabetes mellitus type II, controlled Start:19-Dec-2012 Instruction Type:Provider Instructions for Treatment Patient Instructions Indication:Diabetes mellitus type II, controlled Start:11-Feb-2012 Instruction Type:Provider Instructions for Treatment Name Dates Details How to access health informa tion online Indication:Non-smoker Start:16-Aug-2018 Instruction Type:Patient Education How to access health informa tion online - Detail Indication:Non-smoker Start:16-Aug-2018 Instruction Type:Patient Education Patient Instructions Indication:Non-smoker Start:16-Aug-2018 Instruction Type:Provider Instructions for Treatment How to access health informa tion online Indication:BMI 32.0-32.9,adult Start:17-May-2018 Instruction Type:Patient Education How to access health informa tion online - Detail Indication:BMI 32.0-32.9,adult Start:17-May-2018 Instruction Type:Patient Education Patient Instructions Indication:BMI 32.0-32.9,adult Start:17-May-2018 Instruction Type:Provider Instructions for Treatment How to access health informa tion online Indication:Diabetes mellitus type II, controlled Start:21-Dec-2017 Instruction Type:Patient Education How to access health informa tion online - Detail Indication:Diabetes mellitus type II, controlled Start:21-Dec-2017 Instruction Type:Patient Education Patient Instructions Indication:Diabetes mellitus type II, controlled Start:21-Dec-2017 Instruction Type:Provider Instructions for Treatment How to access health informa tion online Indication:Diabetes mellitus type II, controlled Start:18-Aug-2017 Instruction Type:Patient Education How to access health informa tion online - Detail Indication:Diabetes mellitus type II, controlled Start:18-Aug-2017 Instruction Type:Patient Education Patient Instructions Indication:Diabetes mellitus type II, controlled Start:18-Aug-2017 Instruction Type:Provider Instructions for Treatment How to access health informa tion online Indication:Diabetes mellitus type II, controlled Start:21-Apr-2016 Instruction Type:Patient Education How to access health informa tion online - Detail Indication:Diabetes mellitus type II, controlled Start:21-Apr-2016 Instruction Type:Patient Education Patient Instructions Indication:Diabetes mellitus type II, controlled Start:21-Apr-2016 Instruction Type:Provider Instructions for Treatment How to access health informa tion online Indication:Hematuria Start:16-Feb-2016 Instruction Type:Patient Education How to access health informa tion online - Detail Indication:Hematuria Start:16-Feb-2016 Instruction Type:Patient Education Patient Instructions Indication:Hematuria Start:16-Feb-2016 Instruction Type:Provider Instructions for Treatment How to access health informa tion online Indication:Anxiety Start:09-Sep-2015 Instruction Type:Patient Education How to access health informa tion online - Detail Indication:Anxiety Start:09-Sep-2015 Instruction Type:Patient Education Patient Instructions Indication:Anxiety Start:09-Sep-2015 Instruction Type:Provider Instructions for Treatment How to access health informa tion online Indication:Anxiety Start:25-Jul-2015 Instruction Type:Patient Education How to access health informa tion online - Detail Indication:Anxiety Start:25-Jul-2015 Instruction Type:Patient Education Patient Instructions Indication:Anxiety Start:25-Jul-2015 Instruction Type:Provider Instructions for Treatment How to access health informa tion online Indication:Diabetes mellitus type II, controlled Start:03-Feb-2015 Instruction Type:Patient Education How to access health informa tion online - Detail Indication:Diabetes mellitus type II, controlled Start:03-Feb-2015 Instruction Type:Patient Education Patient Instructions Indication:Diabetes mellitus type II, controlled Start:03-Feb-2015 Instruction Type:Provider Instructions for Treatment How to access health informa tion online Indication:Contact dermatitis, contact dermatitis due to unspecified agent, unspecified contact dermatitis Start:09-Jan-2015 Instruction Type:Patient Education How to access health informa tion online - Detail Indication:Contact dermatitis, contact dermatitis due to unspecified agent, unspecified contact dermatitis Start:09-Jan-2015 Instruction Type:Patient Education Patient Instructions Indication:Contact dermatitis, contact dermatitis due to unspecified agent, unspecified contact dermatitis Start:09-Jan-2015 Instruction Type:Provider Instructions for Treatment How to access health informa tion online Indication:Diabetes mellitus type II, controlled Start:27-Aug-2014 Instruction Type:Patient Education How to access health informa tion online - Detail Indication:Diabetes mellitus type II, controlled Start:27-Aug-2014 Instruction Type:Patient Education Patient Instructions Indication:Diabetes mellitus type II, controlled Start:27-Aug-2014 Instruction Type:Provider Instructions for Treatment How to access health informa tion online - Detail Indication:Diabetes mellitus type II, controlled Start:30-Jul-2014 Instruction Type:Patient Education How to access health informa tion online Indication:Diabetes mellitus type II, controlled Start:30-Jul-2014 Instruction Type:Patient Education Patient Instructions Indication:Diabetes mellitus type II, controlled Start:30-Jul-2014 Instruction Type:Provider Instructions for Treatment Patient Instructions Indication:Diabetes mellitus type II, controlled Start:19-Dec-2012 Instruction Type:Provider Instructions for Treatment Patient Instructions Indication:Diabetes mellitus type II, controlled Start:11-Feb-2012 Instruction Type:Provider Instructions for Treatment Name Dates Details How to access health informa tion online Indication:Non-smoker Start:16-Aug-2019 Instruction Type:Patient Education How to access health informa tion online - Detail Indication:Non-smoker Start:16-Aug-2019 Instruction Type:Patient Education Patient Instructions Indication:Non-smoker Start:16-Aug-2019 Instruction Type:Provider Instructions for Treatment How to access health informa tion online Indication:Non-smoker Start:16-Apr-2019 Instruction Type:Patient Education How to access health informa tion online - Detail Indication:Non-smoker Start:16-Apr-2019 Instruction Type:Patient Education Patient Instructions Indication:Non-smoker Start:16-Apr-2019 Instruction Type:Provider Instructions for Treatment How to access health informa tion online Indication:Non-smoker Start:09-Feb-2019 Instruction Type:Patient Education How to access health informa tion online - Detail Indication:Non-smoker Start:09-Feb-2019 Instruction Type:Patient Education Patient Instructions Indication:BMI 32.0-32.9,adult Start:09-Feb-2019 Instruction Type:Provider Instructions for Treatment How to access health informa tion online Indication:Non-smoker Start:16-Aug-2018 Instruction Type:Patient Education How to access health informa tion online - Detail Indication:Non-smoker Start:16-Aug-2018 Instruction Type:Patient Education Patient Instructions Indication:Non-smoker Start:16-Aug-2018 Instruction Type:Provider Instructions for Treatment How to access health informa tion online Indication:BMI 32.0-32.9,adult Start:17-May-2018 Instruction Type:Patient Education How to access health informa tion online - Detail Indication:BMI 32.0-32.9,adult Start:17-May-2018 Instruction Type:Patient Education Patient Instructions Indication:BMI 32.0-32.9,adult Start:17-May-2018 Instruction Type:Provider Instructions for Treatment How to access health informa tion online Indication:Diabetes mellitus type II, controlled Start:21-Dec-2017 Instruction Type:Patient Education How to access health informa tion online - Detail Indication:Diabetes mellitus type II, controlled Start:21-Dec-2017 Instruction Type:Patient Education Patient Instructions Indication:Diabetes mellitus type II, controlled Start:21-Dec-2017 Instruction Type:Provider Instructions for Treatment How to access health informa tion online Indication:Diabetes mellitus type II, controlled Start:18-Aug-2017 Instruction Type:Patient Education How to access health informa tion online - Detail Indication:Diabetes mellitus type II, controlled Start:18-Aug-2017 Instruction Type:Patient Education Patient Instructions Indication:Diabetes mellitus type II, controlled Start:18-Aug-2017 Instruction Type:Provider Instructions for Treatment How to access health informa tion online Indication:Diabetes mellitus type II, controlled Start:21-Apr-2016 Instruction Type:Patient Education How to access health informa tion online - Detail Indication:Diabetes mellitus type II, controlled Start:21-Apr-2016 Instruction Type:Patient Education Patient Instructions Indication:Diabetes mellitus type II, controlled Start:21-Apr-2016 Instruction Type:Provider Instructions for Treatment How to access health informa tion online Indication:Hematuria Start:16-Feb-2016 Instruction Type:Patient Education How to access health informa tion online - Detail Indication:Hematuria Start:16-Feb-2016 Instruction Type:Patient Education Patient Instructions Indication:Hematuria Start:16-Feb-2016 Instruction Type:Provider Instructions for Treatment How to access health informa tion online Indication:Anxiety Start:09-Sep-2015 Instruction Type:Patient Education How to access health informa tion online - Detail Indication:Anxiety Start:09-Sep-2015 Instruction Type:Patient Education Patient Instructions Indication:Anxiety Start:09-Sep-2015 Instruction Type:Provider Instructions for Treatment How to access health informa tion online Indication:Anxiety Start:25-Jul-2015 Instruction Type:Patient Education How to access health informa tion online - Detail Indication:Anxiety Start:25-Jul-2015 Instruction Type:Patient Education Patient Instructions Indication:Anxiety Start:25-Jul-2015 Instruction Type:Provider Instructions for Treatment How to access health informa tion online Indication:Diabetes mellitus type II, controlled Start:03-Feb-2015 Instruction Type:Patient Education How to access health informa tion online - Detail Indication:Diabetes mellitus type II, controlled Start:03-Feb-2015 Instruction Type:Patient Education Patient Instructions Indication:Diabetes mellitus type II, controlled Start:03-Feb-2015 Instruction Type:Provider Instructions for Treatment How to access health informa tion online Indication:Contact dermatitis, contact dermatitis due to unspecified agent, unspecified contact dermatitis Start:09-Jan-2015 Instruction Type:Patient Education How to access health informa tion online - Detail Indication:Contact dermatitis, contact dermatitis due to unspecified agent, unspecified contact dermatitis Start:09-Jan-2015 Instruction Type:Patient Education Patient Instructions Indication:Contact dermatitis, contact dermatitis due to unspecified agent, unspecified contact dermatitis Start:09-Jan-2015 Instruction Type:Provider Instructions for Treatment How to access health informa tion online Indication:Diabetes mellitus type II, controlled Start:27-Aug-2014 Instruction Type:Patient Education How to access health informa tion online - Detail Indication:Diabetes mellitus type II, controlled Start:27-Aug-2014 Instruction Type:Patient Education Patient Instructions Indication:Diabetes mellitus type II, controlled Start:27-Aug-2014 Instruction Type:Provider Instructions for Treatment How to access health informa tion online - Detail Indication:Diabetes mellitus type II, controlled Start:30-Jul-2014 Instruction Type:Patient Education How to access health informa tion online Indication:Diabetes mellitus type II, controlled Start:30-Jul-2014 Instruction Type:Patient Education Patient Instructions Indication:Diabetes mellitus type II, controlled Start:30-Jul-2014 Instruction Type:Provider Instructions for Treatment Patient Instructions Indication:Diabetes mellitus type II, controlled Start:19-Dec-2012 Instruction Type:Provider Instructions for Treatment Patient Instructions Indication:Diabetes mellitus type II, controlled Start:11-Feb-2012 Instruction Type:Provider Instructions for Treatment Name Dates Details How to access health informa tion online Indication:Non-smoker Start:19-Nov-2019 Instruction Type:Patient Education How to access health informa tion online - Detail Indication:Non-smoker Start:19-Nov-2019 Instruction Type:Patient Education Patient Instructions Indication:Non-smoker Start:19-Nov-2019 Instruction Type:Provider Instructions for Treatment How to access health informa tion online Indication:Non-smoker Start:16-Aug-2019 Instruction Type:Patient Education How to access health informa tion online - Detail Indication:Non-smoker Start:16-Aug-2019 Instruction Type:Patient Education Patient Instructions Indication:Non-smoker Start:16-Aug-2019 Instruction Type:Provider Instructions for Treatment How to access health informa tion online Indication:Non-smoker Start:16-Apr-2019 Instruction Type:Patient Education How to access health informa tion online - Detail Indication:Non-smoker Start:16-Apr-2019 Instruction Type:Patient Education Patient Instructions Indication:Non-smoker Start:16-Apr-2019 Instruction Type:Provider Instructions for Treatment How to access health informa tion online Indication:Non-smoker Start:09-Feb-2019 Instruction Type:Patient Education How to access health informa tion online - Detail Indication:Non-smoker Start:09-Feb-2019 Instruction Type:Patient Education Patient Instructions Indication:BMI 32.0-32.9,adult Start:09-Feb-2019 Instruction Type:Provider Instructions for Treatment How to access health informa tion online Indication:Non-smoker Start:16-Aug-2018 Instruction Type:Patient Education How to access health informa tion online - Detail Indication:Non-smoker Start:16-Aug-2018 Instruction Type:Patient Education Patient Instructions Indication:Non-smoker Start:16-Aug-2018 Instruction Type:Provider Instructions for Treatment How to access health informa tion online Indication:BMI 32.0-32.9,adult Start:17-May-2018 Instruction Type:Patient Education How to access health informa tion online - Detail Indication:BMI 32.0-32.9,adult Start:17-May-2018 Instruction Type:Patient Education Patient Instructions Indication:BMI 32.0-32.9,adult Start:17-May-2018 Instruction Type:Provider Instructions for Treatment How to access health informa tion online Indication:Diabetes mellitus type II, controlled Start:21-Dec-2017 Instruction Type:Patient Education How to access health informa tion online - Detail Indication:Diabetes mellitus type II, controlled Start:21-Dec-2017 Instruction Type:Patient Education Patient Instructions Indication:Diabetes mellitus type II, controlled Start:21-Dec-2017 Instruction Type:Provider Instructions for Treatment How to access health informa tion online Indication:Diabetes mellitus type II, controlled Start:18-Aug-2017 Instruction Type:Patient Education How to access health informa tion online - Detail Indication:Diabetes mellitus type II, controlled Start:18-Aug-2017 Instruction Type:Patient Education Patient Instructions Indication:Diabetes mellitus type II, controlled Start:18-Aug-2017 Instruction Type:Provider Instructions for Treatment How to access health informa tion online Indication:Diabetes mellitus type II, controlled Start:21-Apr-2016 Instruction Type:Patient Education How to access health informa tion online - Detail Indication:Diabetes mellitus type II, controlled Start:21-Apr-2016 Instruction Type:Patient Education Patient Instructions Indication:Diabetes mellitus type II, controlled Start:21-Apr-2016 Instruction Type:Provider Instructions for Treatment How to access health informa tion online Indication:Hematuria Start:16-Feb-2016 Instruction Type:Patient Education How to access health informa tion online - Detail Indication:Hematuria Start:16-Feb-2016 Instruction Type:Patient Education Patient Instructions Indication:Hematuria Start:16-Feb-2016 Instruction Type:Provider Instructions for Treatment How to access health informa tion online Indication:Anxiety Start:09-Sep-2015 Instruction Type:Patient Education How to access health informa tion online - Detail Indication:Anxiety Start:09-Sep-2015 Instruction Type:Patient Education Patient Instructions Indication:Anxiety Start:09-Sep-2015 Instruction Type:Provider Instructions for Treatment How to access health informa tion online Indication:Anxiety Start:25-Jul-2015 Instruction Type:Patient Education How to access health informa tion online - Detail Indication:Anxiety Start:25-Jul-2015 Instruction Type:Patient Education Patient Instructions Indication:Anxiety Start:25-Jul-2015 Instruction Type:Provider Instructions for Treatment How to access health informa tion online Indication:Diabetes mellitus type II, controlled Start:03-Feb-2015 Instruction Type:Patient Education How to access health informa tion online - Detail Indication:Diabetes mellitus type II, controlled Start:03-Feb-2015 Instruction Type:Patient Education Patient Instructions Indication:Diabetes mellitus type II, controlled Start:03-Feb-2015 Instruction Type:Provider Instructions for Treatment How to access health informa tion online Indication:Contact dermatitis, contact dermatitis due to unspecified agent, unspecified contact dermatitis Start:09-Jan-2015 Instruction Type:Patient Education How to access health informa tion online - Detail Indication:Contact dermatitis, contact dermatitis due to unspecified agent, unspecified contact dermatitis Start:09-Jan-2015 Instruction Type:Patient Education Patient Instructions Indication:Contact dermatitis, contact dermatitis due to unspecified agent, unspecified contact dermatitis Start:09-Jan-2015 Instruction Type:Provider Instructions for Treatment How to access health informa tion online Indication:Diabetes mellitus type II, controlled Start:27-Aug-2014 Instruction Type:Patient Education How to access health informa tion online - Detail Indication:Diabetes mellitus type II, controlled Start:27-Aug-2014 Instruction Type:Patient Education Patient Instructions Indication:Diabetes mellitus type II, controlled Start:27-Aug-2014 Instruction Type:Provider Instructions for Treatment How to access health informa tion online - Detail Indication:Diabetes mellitus type II, controlled Start:30-Jul-2014 Instruction Type:Patient Education How to access health informa tion online Indication:Diabetes mellitus type II, controlled Start:30-Jul-2014 Instruction Type:Patient Education Patient Instructions Indication:Diabetes mellitus type II, controlled Start:30-Jul-2014 Instruction Type:Provider Instructions for Treatment Patient Instructions Indication:Diabetes mellitus type II, controlled Start:19-Dec-2012 Instruction Type:Provider Instructions for Treatment Patient Instructions Indication:Diabetes mellitus type II, controlled Start:11-Feb-2012 Instruction Type:Provider Instructions for Treatment Name Dates Details obesity counseling Indication:Diabetes mellitus type II, controlled Start:06-Dec-2019 Instruction Type:Provider Instructions for Treatment cardiovascular counseling Indication:Coronary artery disease Start:06-Dec-2019 Instruction Type:Provider Instructions for Treatment How to access health informa tion online Indication:BMI 32.0-32.9,adult Start:06-Dec-2019 Instruction Type:Patient Education How to access health informa tion online - Detail Indication:BMI 32.0-32.9,adult Start:06-Dec-2019 Instruction Type:Patient Education Patient Instructions Indication:BMI 32.0-32.9,adult Start:06-Dec-2019 Instruction Type:Provider Instructions for Treatment How to access health informa tion online Indication:Non-smoker Start:19-Nov-2019 Instruction Type:Patient Education How to access health informa tion online - Detail Indication:Non-smoker Start:19-Nov-2019 Instruction Type:Patient Education Patient Instructions Indication:Non-smoker Start:19-Nov-2019 Instruction Type:Provider Instructions for Treatment How to access health informa tion online Indication:Non-smoker Start:16-Aug-2019 Instruction Type:Patient Education How to access health informa tion online - Detail Indication:Non-smoker Start:16-Aug-2019 Instruction Type:Patient Education Patient Instructions Indication:Non-smoker Start:16-Aug-2019 Instruction Type:Provider Instructions for Treatment How to access health informa tion online Indication:Non-smoker Start:16-Apr-2019 Instruction Type:Patient Education How to access health informa tion online - Detail Indication:Non-smoker Start:16-Apr-2019 Instruction Type:Patient Education Patient Instructions Indication:Non-smoker Start:16-Apr-2019 Instruction Type:Provider Instructions for Treatment How to access health informa tion online Indication:Non-smoker Start:09-Feb-2019 Instruction Type:Patient Education How to access health informa tion online - Detail Indication:Non-smoker Start:09-Feb-2019 Instruction Type:Patient Education Patient Instructions Indication:BMI 32.0-32.9,adult Start:09-Feb-2019 Instruction Type:Provider Instructions for Treatment How to access health informa tion online Indication:Non-smoker Start:16-Aug-2018 Instruction Type:Patient Education How to access health informa tion online - Detail Indication:Non-smoker Start:16-Aug-2018 Instruction Type:Patient Education Patient Instructions Indication:Non-smoker Start:16-Aug-2018 Instruction Type:Provider Instructions for Treatment How to access health informa tion online Indication:BMI 32.0-32.9,adult Start:17-May-2018 Instruction Type:Patient Education How to access health informa tion online - Detail Indication:BMI 32.0-32.9,adult Start:17-May-2018 Instruction Type:Patient Education Patient Instructions Indication:BMI 32.0-32.9,adult Start:17-May-2018 Instruction Type:Provider Instructions for Treatment How to access health informa tion online Indication:Diabetes mellitus type II, controlled Start:21-Dec-2017 Instruction Type:Patient Education How to access health informa tion online - Detail Indication:Diabetes mellitus type II, controlled Start:21-Dec-2017 Instruction Type:Patient Education Patient Instructions Indication:Diabetes mellitus type II, controlled Start:21-Dec-2017 Instruction Type:Provider Instructions for Treatment How to access health informa tion online Indication:Diabetes mellitus type II, controlled Start:18-Aug-2017 Instruction Type:Patient Education How to access health informa tion online - Detail Indication:Diabetes mellitus type II, controlled Start:18-Aug-2017 Instruction Type:Patient Education Patient Instructions Indication:Diabetes mellitus type II, controlled Start:18-Aug-2017 Instruction Type:Provider Instructions for Treatment How to access health informa tion online Indication:Diabetes mellitus type II, controlled Start:21-Apr-2016 Instruction Type:Patient Education How to access health informa tion online - Detail Indication:Diabetes mellitus type II, controlled Start:21-Apr-2016 Instruction Type:Patient Education Patient Instructions Indication:Diabetes mellitus type II, controlled Start:21-Apr-2016 Instruction Type:Provider Instructions for Treatment How to access health informa tion online Indication:Hematuria Start:16-Feb-2016 Instruction Type:Patient Education How to access health informa tion online - Detail Indication:Hematuria Start:16-Feb-2016 Instruction Type:Patient Education Patient Instructions Indication:Hematuria Start:16-Feb-2016 Instruction Type:Provider Instructions for Treatment How to access health informa tion online Indication:Anxiety Start:09-Sep-2015 Instruction Type:Patient Education How to access health informa tion online - Detail Indication:Anxiety Start:09-Sep-2015 Instruction Type:Patient Education Patient Instructions Indication:Anxiety Start:09-Sep-2015 Instruction Type:Provider Instructions for Treatment How to access health informa tion online Indication:Anxiety Start:25-Jul-2015 Instruction Type:Patient Education How to access health informa tion online - Detail Indication:Anxiety Start:25-Jul-2015 Instruction Type:Patient Education Patient Instructions Indication:Anxiety Start:25-Jul-2015 Instruction Type:Provider Instructions for Treatment How to access health informa tion online Indication:Diabetes mellitus type II, controlled Start:03-Feb-2015 Instruction Type:Patient Education How to access health informa tion online - Detail Indication:Diabetes mellitus type II, controlled Start:03-Feb-2015 Instruction Type:Patient Education Patient Instructions Indication:Diabetes mellitus type II, controlled Start:03-Feb-2015 Instruction Type:Provider Instructions for Treatment How to access health informa tion online Indication:Contact dermatitis, contact dermatitis due to unspecified agent, unspecified contact dermatitis Start:09-Jan-2015 Instruction Type:Patient Education How to access health informa tion online - Detail Indication:Contact dermatitis, contact dermatitis due to unspecified agent, unspecified contact dermatitis Start:09-Jan-2015 Instruction Type:Patient Education Patient Instructions Indication:Contact dermatitis, contact dermatitis due to unspecified agent, unspecified contact dermatitis Start:09-Jan-2015 Instruction Type:Provider Instructions for Treatment How to access health informa tion online Indication:Diabetes mellitus type II, controlled Start:27-Aug-2014 Instruction Type:Patient Education How to access health informa tion online - Detail Indication:Diabetes mellitus type II, controlled Start:27-Aug-2014 Instruction Type:Patient Education Patient Instructions Indication:Diabetes mellitus type II, controlled Start:27-Aug-2014 Instruction Type:Provider Instructions for Treatment How to access health informa tion online - Detail Indication:Diabetes mellitus type II, controlled Start:30-Jul-2014 Instruction Type:Patient Education How to access health informa tion online Indication:Diabetes mellitus type II, controlled Start:30-Jul-2014 Instruction Type:Patient Education Patient Instructions Indication:Diabetes mellitus type II, controlled Start:30-Jul-2014 Instruction Type:Provider Instructions for Treatment Patient Instructions Indication:Diabetes mellitus type II, controlled Start:19-Dec-2012 Instruction Type:Provider Instructions for Treatment Patient Instructions Indication:Diabetes mellitus type II, controlled Start:11-Feb-2012 Instruction Type:Provider Instructions for Treatment Name Dates Details How to Access Health Informa tion Online using Patient Portal and [employer] Indication:Non-smoker Start:20-Feb-2020 Instruction Type:Patient Education Patient Instructions Indication:Non-smoker Start:20-Feb-2020 Instruction Type:Provider Instructions for Treatment obesity counseling Indication:Diabetes mellitus type II, controlled Start:06-Dec-2019 Instruction Type:Provider Instructions for Treatment cardiovascular counseling Indication:Coronary artery disease Start:06-Dec-2019 Instruction Type:Provider Instructions for Treatment How to access health informa tion online Indication:BMI 32.0-32.9,adult Start:06-Dec-2019 Instruction Type:Patient Education How to access health informa tion online - Detail Indication:BMI 32.0-32.9,adult Start:06-Dec-2019 Instruction Type:Patient Education Patient Instructions Indication:BMI 32.0-32.9,adult Start:06-Dec-2019 Instruction Type:Provider Instructions for Treatment How to access health informa tion online Indication:Non-smoker Start:19-Nov-2019 Instruction Type:Patient Education How to access health informa tion online - Detail Indication:Non-smoker Start:19-Nov-2019 Instruction Type:Patient Education Patient Instructions Indication:Non-smoker Start:19-Nov-2019 Instruction Type:Provider Instructions for Treatment How to access health informa tion online Indication:Non-smoker Start:16-Aug-2019 Instruction Type:Patient Education How to access health informa tion online - Detail Indication:Non-smoker Start:16-Aug-2019 Instruction Type:Patient Education Patient Instructions Indication:Non-smoker Start:16-Aug-2019 Instruction Type:Provider Instructions for Treatment How to access health informa tion online Indication:Non-smoker Start:16-Apr-2019 Instruction Type:Patient Education How to access health informa tion online - Detail Indication:Non-smoker Start:16-Apr-2019 Instruction Type:Patient Education Patient Instructions Indication:Non-smoker Start:16-Apr-2019 Instruction Type:Provider Instructions for Treatment How to access health informa tion online Indication:Non-smoker Start:09-Feb-2019 Instruction Type:Patient Education How to access health informa tion online - Detail Indication:Non-smoker Start:09-Feb-2019 Instruction Type:Patient Education Patient Instructions Indication:BMI 32.0-32.9,adult Start:09-Feb-2019 Instruction Type:Provider Instructions for Treatment How to access health informa tion online Indication:Non-smoker Start:16-Aug-2018 Instruction Type:Patient Education How to access health informa tion online - Detail Indication:Non-smoker Start:16-Aug-2018 Instruction Type:Patient Education Patient Instructions Indication:Non-smoker Start:16-Aug-2018 Instruction Type:Provider Instructions for Treatment How to access health informa tion online Indication:BMI 32.0-32.9,adult Start:17-May-2018 Instruction Type:Patient Education How to access health informa tion online - Detail Indication:BMI 32.0-32.9,adult Start:17-May-2018 Instruction Type:Patient Education Patient Instructions Indication:BMI 32.0-32.9,adult Start:17-May-2018 Instruction Type:Provider Instructions for Treatment How to access health informa tion online Indication:Diabetes mellitus type II, controlled Start:21-Dec-2017 Instruction Type:Patient Education How to access health informa tion online - Detail Indication:Diabetes mellitus type II, controlled Start:21-Dec-2017 Instruction Type:Patient Education Patient Instructions Indication:Diabetes mellitus type II, controlled Start:21-Dec-2017 Instruction Type:Provider Instructions for Treatment How to access health informa tion online Indication:Diabetes mellitus type II, controlled Start:18-Aug-2017 Instruction Type:Patient Education How to access health informa tion online - Detail Indication:Diabetes mellitus type II, controlled Start:18-Aug-2017 Instruction Type:Patient Education Patient Instructions Indication:Diabetes mellitus type II, controlled Start:18-Aug-2017 Instruction Type:Provider Instructions for Treatment How to access health informa tion online Indication:Diabetes mellitus type II, controlled Start:21-Apr-2016 Instruction Type:Patient Education How to access health informa tion online - Detail Indication:Diabetes mellitus type II, controlled Start:21-Apr-2016 Instruction Type:Patient Education Patient Instructions Indication:Diabetes mellitus type II, controlled Start:21-Apr-2016 Instruction Type:Provider Instructions for Treatment How to access health informa tion online Indication:Hematuria Start:16-Feb-2016 Instruction Type:Patient Education How to access health informa tion online - Detail Indication:Hematuria Start:16-Feb-2016 Instruction Type:Patient Education Patient Instructions Indication:Hematuria Start:16-Feb-2016 Instruction Type:Provider Instructions for Treatment How to access health informa tion online Indication:Anxiety Start:09-Sep-2015 Instruction Type:Patient Education How to access health informa tion online - Detail Indication:Anxiety Start:09-Sep-2015 Instruction Type:Patient Education Patient Instructions Indication:Anxiety Start:09-Sep-2015 Instruction Type:Provider Instructions for Treatment How to access health informa tion online Indication:Anxiety Start:25-Jul-2015 Instruction Type:Patient Education How to access health informa tion online - Detail Indication:Anxiety Start:25-Jul-2015 Instruction Type:Patient Education Patient Instructions Indication:Anxiety Start:25-Jul-2015 Instruction Type:Provider Instructions for Treatment How to access health informa tion online Indication:Diabetes mellitus type II, controlled Start:03-Feb-2015 Instruction Type:Patient Education How to access health informa tion online - Detail Indication:Diabetes mellitus type II, controlled Start:03-Feb-2015 Instruction Type:Patient Education Patient Instructions Indication:Diabetes mellitus type II, controlled Start:03-Feb-2015 Instruction Type:Provider Instructions for Treatment How to access health informa tion online Indication:Contact dermatitis, contact dermatitis due to unspecified agent, unspecified contact dermatitis Start:09-Jan-2015 Instruction Type:Patient Education How to access health informa tion online - Detail Indication:Contact dermatitis, contact dermatitis due to unspecified agent, unspecified contact dermatitis Start:09-Jan-2015 Instruction Type:Patient Education Patient Instructions Indication:Contact dermatitis, contact dermatitis due to unspecified agent, unspecified contact dermatitis Start:09-Jan-2015 Instruction Type:Provider Instructions for Treatment How to access health informa tion online Indication:Diabetes mellitus type II, controlled Start:27-Aug-2014 Instruction Type:Patient Education How to access health informa tion online - Detail Indication:Diabetes mellitus type II, controlled Start:27-Aug-2014 Instruction Type:Patient Education Patient Instructions Indication:Diabetes mellitus type II, controlled Start:27-Aug-2014 Instruction Type:Provider Instructions for Treatment How to access health informa tion online - Detail Indication:Diabetes mellitus type II, controlled Start:30-Jul-2014 Instruction Type:Patient Education How to access health informa tion online Indication:Diabetes mellitus type II, controlled Start:30-Jul-2014 Instruction Type:Patient Education Patient Instructions Indication:Diabetes mellitus type II, controlled Start:30-Jul-2014 Instruction Type:Provider Instructions for Treatment Patient Instructions Indication:Diabetes mellitus type II, controlled Start:19-Dec-2012 Instruction Type:Provider Instructions for Treatment Patient Instructions Indication:Diabetes mellitus type II, controlled Start:11-Feb-2012 Instruction Type:Provider Instructions for Treatment Name Dates Details How to Access Health Informa tion Online using Patient Portal and 3rd [employer] Apps Indication:Non-smoker Start:20-Feb-2020 Instruction Type:Patient Education Patient Instructions Indication:Non-smoker Start:20-Feb-2020 Instruction Type:Provider Instructions for Treatment obesity counseling Indication:Diabetes mellitus type II, controlled Start:06-Dec-2019 Instruction Type:Provider Instructions for Treatment cardiovascular counseling Indication:Coronary artery disease Start:06-Dec-2019 Instruction Type:Provider Instructions for Treatment How to access health informa tion online Indication:BMI 32.0-32.9,adult Start:06-Dec-2019 Instruction Type:Patient Education How to access health informa tion online - Detail Indication:BMI 32.0-32.9,adult Start:06-Dec-2019 Instruction Type:Patient Education Patient Instructions Indication:BMI 32.0-32.9,adult Start:06-Dec-2019 Instruction Type:Provider Instructions for Treatment How to access health informa tion online Indication:Non-smoker Start:19-Nov-2019 Instruction Type:Patient Education How to access health informa tion online - Detail Indication:Non-smoker Start:19-Nov-2019 Instruction Type:Patient Education Patient Instructions Indication:Non-smoker Start:19-Nov-2019 Instruction Type:Provider Instructions for Treatment How to access health informa tion online Indication:Non-smoker Start:16-Aug-2019 Instruction Type:Patient Education How to access health informa tion online - Detail Indication:Non-smoker Start:16-Aug-2019 Instruction Type:Patient Education Patient Instructions Indication:Non-smoker Start:16-Aug-2019 Instruction Type:Provider Instructions for Treatment How to access health informa tion online Indication:Non-smoker Start:16-Apr-2019 Instruction Type:Patient Education How to access health informa tion online - Detail Indication:Non-smoker Start:16-Apr-2019 Instruction Type:Patient Education Patient Instructions Indication:Non-smoker Start:16-Apr-2019 Instruction Type:Provider Instructions for Treatment How to access health informa tion online Indication:Non-smoker Start:09-Feb-2019 Instruction Type:Patient Education How to access health informa tion online - Detail Indication:Non-smoker Start:09-Feb-2019 Instruction Type:Patient Education Patient Instructions Indication:BMI 32.0-32.9,adult Start:09-Feb-2019 Instruction Type:Provider Instructions for Treatment How to access health informa tion online Indication:Non-smoker Start:16-Aug-2018 Instruction Type:Patient Education How to access health informa tion online - Detail Indication:Non-smoker Start:16-Aug-2018 Instruction Type:Patient Education Patient Instructions Indication:Non-smoker Start:16-Aug-2018 Instruction Type:Provider Instructions for Treatment How to access health informa tion online Indication:BMI 32.0-32.9,adult Start:17-May-2018 Instruction Type:Patient Education How to access health informa tion online - Detail Indication:BMI 32.0-32.9,adult Start:17-May-2018 Instruction Type:Patient Education Patient Instructions Indication:BMI 32.0-32.9,adult Start:17-May-2018 Instruction Type:Provider Instructions for Treatment How to access health informa tion online Indication:Diabetes mellitus type II, controlled Start:21-Dec-2017 Instruction Type:Patient Education How to access health informa tion online - Detail Indication:Diabetes mellitus type II, controlled Start:21-Dec-2017 Instruction Type:Patient Education Patient Instructions Indication:Diabetes mellitus type II, controlled Start:21-Dec-2017 Instruction Type:Provider Instructions for Treatment How to access health informa tion online Indication:Diabetes mellitus type II, controlled Start:18-Aug-2017 Instruction Type:Patient Education How to access health informa tion online - Detail Indication:Diabetes mellitus type II, controlled Start:18-Aug-2017 Instruction Type:Patient Education Patient Instructions Indication:Diabetes mellitus type II, controlled Start:18-Aug-2017 Instruction Type:Provider Instructions for Treatment How to access health informa tion online Indication:Diabetes mellitus type II, controlled Start:21-Apr-2016 Instruction Type:Patient Education How to access health informa tion online - Detail Indication:Diabetes mellitus type II, controlled Start:21-Apr-2016 Instruction Type:Patient Education Patient Instructions Indication:Diabetes mellitus type II, controlled Start:21-Apr-2016 Instruction Type:Provider Instructions for Treatment How to access health informa tion online Indication:Hematuria Start:16-Feb-2016 Instruction Type:Patient Education How to access health informa tion online - Detail Indication:Hematuria Start:16-Feb-2016 Instruction Type:Patient Education Patient Instructions Indication:Hematuria Start:16-Feb-2016 Instruction Type:Provider Instructions for Treatment How to access health informa tion online Indication:Anxiety Start:09-Sep-2015 Instruction Type:Patient Education How to access health informa tion online - Detail Indication:Anxiety Start:09-Sep-2015 Instruction Type:Patient Education Patient Instructions Indication:Anxiety Start:09-Sep-2015 Instruction Type:Provider Instructions for Treatment How to access health informa tion online Indication:Anxiety Start:25-Jul-2015 Instruction Type:Patient Education How to access health informa tion online - Detail Indication:Anxiety Start:25-Jul-2015 Instruction Type:Patient Education Patient Instructions Indication:Anxiety Start:25-Jul-2015 Instruction Type:Provider Instructions for Treatment How to access health informa tion online Indication:Diabetes mellitus type II, controlled Start:03-Feb-2015 Instruction Type:Patient Education How to access health informa tion online - Detail Indication:Diabetes mellitus type II, controlled Start:03-Feb-2015 Instruction Type:Patient Education Patient Instructions Indication:Diabetes mellitus type II, controlled Start:03-Feb-2015 Instruction Type:Provider Instructions for Treatment How to access health informa tion online Indication:Contact dermatitis, contact dermatitis due to unspecified agent, unspecified contact dermatitis Start:09-Jan-2015 Instruction Type:Patient Education How to access health informa tion online - Detail Indication:Contact dermatitis, contact dermatitis due to unspecified agent, unspecified contact dermatitis Start:09-Jan-2015 Instruction Type:Patient Education Patient Instructions Indication:Contact dermatitis, contact dermatitis due to unspecified agent, unspecified contact dermatitis Start:09-Jan-2015 Instruction Type:Provider Instructions for Treatment How to access health informa tion online Indication:Diabetes mellitus type II, controlled Start:27-Aug-2014 Instruction Type:Patient Education How to access health informa tion online - Detail Indication:Diabetes mellitus type II, controlled Start:27-Aug-2014 Instruction Type:Patient Education Patient Instructions Indication:Diabetes mellitus type II, controlled Start:27-Aug-2014 Instruction Type:Provider Instructions for Treatment How to access health informa tion online - Detail Indication:Diabetes mellitus type II, controlled Start:30-Jul-2014 Instruction Type:Patient Education How to access health informa tion online Indication:Diabetes mellitus type II, controlled Start:30-Jul-2014 Instruction Type:Patient Education Patient Instructions Indication:Diabetes mellitus type II, controlled Start:30-Jul-2014 Instruction Type:Provider Instructions for Treatment Patient Instructions Indication:Diabetes mellitus type II, controlled Start:19-Dec-2012 Instruction Type:Provider Instructions for Treatment Patient Instructions Indication:Diabetes mellitus type II, controlled Start:11-Feb-2012 Instruction Type:Provider Instructions for Treatment Name Dates Details How to access health informa tion online Indication:Non-smoker Start:19-Nov-2019 Instruction Type:Patient Education How to access health informa tion online - Detail Indication:Non-smoker Start:19-Nov-2019 Instruction Type:Patient Education Patient Instructions Indication:Non-smoker Start:19-Nov-2019 Instruction Type:Provider Instructions for Treatment How to access health informa tion online Indication:Non-smoker Start:16-Aug-2019 Instruction Type:Patient Education How to access health informa tion online - Detail Indication:Non-smoker Start:16-Aug-2019 Instruction Type:Patient Education Patient Instructions Indication:Non-smoker Start:16-Aug-2019 Instruction Type:Provider Instructions for Treatment How to access health informa tion online Indication:Non-smoker Start:16-Apr-2019 Instruction Type:Patient Education How to access health informa tion online - Detail Indication:Non-smoker Start:16-Apr-2019 Instruction Type:Patient Education Patient Instructions Indication:Non-smoker Start:16-Apr-2019 Instruction Type:Provider Instructions for Treatment How to access health informa tion online Indication:Non-smoker Start:09-Feb-2019 Instruction Type:Patient Education How to access health informa tion online - Detail Indication:Non-smoker Start:09-Feb-2019 Instruction Type:Patient Education Patient Instructions Indication:BMI 32.0-32.9,adult Start:09-Feb-2019 Instruction Type:Provider Instructions for Treatment How to access health informa tion online Indication:Non-smoker Start:16-Aug-2018 Instruction Type:Patient Education How to access health informa tion online - Detail Indication:Non-smoker Start:16-Aug-2018 Instruction Type:Patient Education Patient Instructions Indication:Non-smoker Start:16-Aug-2018 Instruction Type:Provider Instructions for Treatment How to access health informa tion online Indication:BMI 32.0-32.9,adult Start:17-May-2018 Instruction Type:Patient Education How to access health informa tion online - Detail Indication:BMI 32.0-32.9,adult Start:17-May-2018 Instruction Type:Patient Education Patient Instructions Indication:BMI 32.0-32.9,adult Start:17-May-2018 Instruction Type:Provider Instructions for Treatment How to access health informa tion online Indication:Diabetes mellitus type II, controlled Start:21-Dec-2017 Instruction Type:Patient Education How to access health informa tion online - Detail Indication:Diabetes mellitus type II, controlled Start:21-Dec-2017 Instruction Type:Patient Education Patient Instructions Indication:Diabetes mellitus type II, controlled Start:21-Dec-2017 Instruction Type:Provider Instructions for Treatment How to access health informa tion online Indication:Diabetes mellitus type II, controlled Start:18-Aug-2017 Instruction Type:Patient Education How to access health informa tion online - Detail Indication:Diabetes mellitus type II, controlled Start:18-Aug-2017 Instruction Type:Patient Education Patient Instructions Indication:Diabetes mellitus type II, controlled Start:18-Aug-2017 Instruction Type:Provider Instructions for Treatment How to access health informa tion online Indication:Diabetes mellitus type II, controlled Start:21-Apr-2016 Instruction Type:Patient Education How to access health informa tion online - Detail Indication:Diabetes mellitus type II, controlled Start:21-Apr-2016 Instruction Type:Patient Education Patient Instructions Indication:Diabetes mellitus type II, controlled Start:21-Apr-2016 Instruction Type:Provider Instructions for Treatment How to access health informa tion online Indication:Hematuria Start:16-Feb-2016 Instruction Type:Patient Education How to access health informa tion online - Detail Indication:Hematuria Start:16-Feb-2016 Instruction Type:Patient Education Patient Instructions Indication:Hematuria Start:16-Feb-2016 Instruction Type:Provider Instructions for Treatment How to access health informa tion online Indication:Anxiety Start:09-Sep-2015 Instruction Type:Patient Education How to access health informa tion online - Detail Indication:Anxiety Start:09-Sep-2015 Instruction Type:Patient Education Patient Instructions Indication:Anxiety Start:09-Sep-2015 Instruction Type:Provider Instructions for Treatment How to access health informa tion online Indication:Anxiety Start:25-Jul-2015 Instruction Type:Patient Education How to access health informa tion online - Detail Indication:Anxiety Start:25-Jul-2015 Instruction Type:Patient Education Patient Instructions Indication:Anxiety Start:25-Jul-2015 Instruction Type:Provider Instructions for Treatment How to access health informa tion online Indication:Diabetes mellitus type II, controlled Start:03-Feb-2015 Instruction Type:Patient Education How to access health informa tion online - Detail Indication:Diabetes mellitus type II, controlled Start:03-Feb-2015 Instruction Type:Patient Education Patient Instructions Indication:Diabetes mellitus type II, controlled Start:03-Feb-2015 Instruction Type:Provider Instructions for Treatment How to access health informa tion online Indication:Contact dermatitis, contact dermatitis due to unspecified agent, unspecified contact dermatitis Start:09-Jan-2015 Instruction Type:Patient Education How to access health informa tion online - Detail Indication:Contact dermatitis, contact dermatitis due to unspecified agent, unspecified contact dermatitis Start:09-Jan-2015 Instruction Type:Patient Education Patient Instructions Indication:Contact dermatitis, contact dermatitis due to unspecified agent, unspecified contact dermatitis Start:09-Jan-2015 Instruction Type:Provider Instructions for Treatment How to access health informa tion online Indication:Diabetes mellitus type II, controlled Start:27-Aug-2014 Instruction Type:Patient Education How to access health informa tion online - Detail Indication:Diabetes mellitus type II, controlled Start:27-Aug-2014 Instruction Type:Patient Education Patient Instructions Indication:Diabetes mellitus type II, controlled Start:27-Aug-2014 Instruction Type:Provider Instructions for Treatment How to access health informa tion online - Detail Indication:Diabetes mellitus type II, controlled Start:30-Jul-2014 Instruction Type:Patient Education How to access health informa tion online Indication:Diabetes mellitus type II, controlled Start:30-Jul-2014 Instruction Type:Patient Education Patient Instructions Indication:Diabetes mellitus type II, controlled Start:30-Jul-2014 Instruction Type:Provider Instructions for Treatment Patient Instructions Indication:Diabetes mellitus type II, controlled Start:19-Dec-2012 Instruction Type:Provider Instructions for Treatment Patient Instructions Indication:Diabetes mellitus type II, controlled Start:11-Feb-2012 Instruction Type:Provider Instructions for Treatment Name Dates Details Diabetes mellitus type II, c ontrolled : How to access health information online Indication:Diabetes mellitus type II, controlled Diabetes mellitus type II, c ontrolled : How to access health information online - Detail Indication:Diabetes mellitus type II, controlled Diabetes mellitus type II, c ontrolled : Patient Instructions Indication:Diabetes mellitus type II, controlled Hematuria : How to access he alth information online Indication:Hematuria Hematuria : How to access he alth information online - Detail Indication:Hematuria Hematuria : Patient Instruct ions Indication:Hematuria Anxiety : How to access heal th information online Indication:Anxiety Anxiety : How to access heal th information online - Detail Indication:Anxiety Anxiety : Patient Instructio ns Indication:Anxiety Contact dermatitis, contact dermatitis due to unspecified agent, unspecified contact dermatitis : How to access health information online Indication:Contact dermatitis, contact dermatitis due to unspecified agent, unspecified contact dermatitis Contact dermatitis, contact dermatitis due to unspecified agent, unspecified contact dermatitis : How to access health information online - Detail Indication:Contact dermatitis, contact dermatitis due to unspecified agent, unspecified contact dermatitis Contact dermatitis, contact dermatitis due to unspecified agent, unspecified contact dermatitis : Patient Instructions Indication:Contact dermatitis, contact dermatitis due to unspecified agent, unspecified contact dermatitis Advance Directives No Advanced Directives Records Found Name Dates Details Immunization Registry [place] - Effective on 05/05/2020. Expiration date unspecified Effective:05-May-2020 Name Dates Details Immunization Registry [place] - Effective on 05/05/2020. Expiration date unspecified Effective:05-May-2020 Name Dates Details Immunization Registry [place] - Effective on 05/05/2020. Expiration date unspecified Effective:05-May-2020 Name Dates Details Immunization Registry [place] - Effective on 05/05/2020. Expiration date unspecified Effective:05-May-2020 Name Dates Details Immunization Registry [place] - Effective on 05/05/2020. Expiration date unspecified Effective:05-May-2020 Name Dates Details Immunization Registry [place] - Effective on 05/05/2020. Expiration date unspecified Effective:05-May-2020 Name Dates Details Immunization Registry [place] - Effective on 05/05/2020. Expiration date unspecified Effective:05-May-2020 Name Dates Details Immunization Registry [place] - Effective on 05/05/2020. Expiration date unspecified Effective:05-May-2020 Name Dates Details Immunization Registry [place] - Effective on 05/05/2020. Expiration date unspecified Effective:05-May-2020 Name Dates Details Immunization Registry [place] - Effective on 05/05/2020. Expiration date unspecified Effective:05-May-2020 Name Dates Details Immunization Registry [place] - Effective on 05/05/2020. Expiration date unspecified Effective:05-May-2020 Advance Directive Response Recorded Date/ Time Living Will No December 21, 2 022 12:47pm Power of Fish Cake Maker No December 21, 2021 12:47pm Name Dates Details Immunization Registry [place] - Effective on 05/05/2020. Expiration date unspecified Effective:05-May-2020 Advance Directive Response Recorded Date/ Time Living Will No December 21, 2 022 6:30pm Power of Fish Cake Maker No December 21, 2021 6:30pm Name Dates Details Immunization Registry [place] - Effective on 05/05/2020. Expiration date unspecified Effective:05-May-2020 Name Dates Details Immunization Registry [place] - Effective on 05/05/2020. Expiration date unspecified Effective:05-May-2020 Name Dates Details Immunization Registry [place] - Effective on 05/05/2020. Expiration date unspecified Effective:05-May-2020 Name Dates Details Immunization Registry [place] - Effective on 05/05/2020. Expiration date unspecified Effective:05-May-2020 Name Dates Details Immunization Registry [place] - Effective on 05/05/2020. Expiration date unspecified Effective:05-May-2020 Name Dates Details Immunization Registry [place] - Effective on 05/05/2020. Expiration date unspecified Effective:05-May-2020 Name Dates Details Immunization Registry [place] - Effective on 05/05/2020. Expiration date unspecified Effective:05-May-2020 Name Dates Details Immunization Registry [place] - Effective on 05/05/2020. Expiration date unspecified Effective:05-May-2020 Name Dates Details Immunization Registry [place] - Effective on 05/05/2020. Expiration date unspecified Effective:05-May-2020 Name Dates Details Immunization Registry [place] - Effective on 05/05/2020. Expiration date unspecified Effective:05-May-2020 Name Dates Details Immunization Registry [place] - Effective on 05/05/2020. Expiration date unspecified Effective:05-May-2020 Name Dates Details Immunization Registry [place] - Effective on 05/05/2020. Expiration date unspecified Effective:05-May-2020 Name Dates Details Immunization Registry [place] - Effective on 05/05/2020. Expiration date unspecified Effective:05-May-2020 Advance Directive Response Recorded Date/ Time Living Will No July 05, 2023 1 1:49am Do you have a Healthcare Power of Fish Cake Maker? No July 05, 2023 11:49am Chief Complaint and Reason for Visit Chief Complaint XRAY UTI, DEBILITY Reason for Visit Acute dehydration Acute UTI Failure of outpatient treatment Chief Complaint XRAY UTI, DEBILITY UTI, DEBILITY UTI, DEBILITY Reason for Visit Acute dehydration Acute UTI Failure of outpatient treatment Hypokalemia Leukopenia Chief Complaint XRAY UTI, DEBILITY UTI, DEBILITY UTI, DEBILITY SCREENING/POST DAVID Reason for Visit Leukopenia Acute dehydration Acute UTI Failure of outpatient treatment Hypokalemia Chief Complaint XRAY UTI, DEBILITY UTI, DEBILITY UTI, DEBILITY SCREENING/POST DAVID UTI Reason for Visit Leukopenia Acute dehydration Acute UTI Failure of outpatient treatment Hypokalemia Chief Complaint Admit Date 1 Y FU October 11, 2024 11:06am Reason for Visit Admit Date CAD (coronary artery disease) October 11, 2024 11:06am Hyperlipidemia October 11, 2024 11:06am Syncope October 11, 2024 11:06am Hypertension October 11, 2024 11:06am Summary Purpose Additional Source Comments INFORMATION SOURCE (unrecogn ized section and content) DATE CREATED AUTHOR 03/15/2022 [facility] DATE CREATED AUTHOR AUTHOR'S BHUPINDER ATTALA 10/13/2024 [facility] Care Teams (unrecognized sec tion and content) Team Status: Active Member Role/Relationship Status Dates Dr. Mable Ford DO Primary Care Provider Active Team Status: Inactive Member Role/Relationship Status Dates Dr. Mable Ford DO Primary Care Provider Active Start: August 07, 2024 Dr. Ama Rockwell MD Attending Provider Active Start: August 07, 2024 Team Status: Inactive Member Role/Relationship Status Dates Dr. Mable Ford DO Primary Care Provider Active Start: October 11, 2024 End: October 11, 2024 Dr. Mable Ford DO Referring Provider Active Start: October 11, 2024 End: October 11, 2024 Munira Jorgensen CANDY DEPOSITING MACHINE OPERATOR, CANDY DEPOSITING MACHINE OPERATOR-C Attending Provider Active Start: October 11, 2024 End: October 11, 2024 Goals (unrecognized section and content) Goals may be documented in a n alternate section FOR RECORDS PERTAINING TO PATIENTS WHO ARE OR HAVE BEEN ENROLLED IN A CHEMICAL DEPENDENCY/SUBSTANCEABUSE PROGRAM, SOME INFORMATION MAY BE OMITTED. This clinical summary was aggregated from multiple sources. Caution should be exercised in using it in the provision of clinical care. This summary normalizes information from multiple sources, and as a consequence, information in this document may materially change the coding, format and clinical context of patient data. In addition, data may be omitted in some cases. CLINICAL DECISIONS SHOULD BE BASED ON THE PRIMARY CLINICAL RECORDS. [employer] provides no warranty or guarantee of the accuracy or completeness of information in this document.
== END | disposition home or self-care (01) ==
PROVIDERS: PCP Internal Medicine; Referring Provider Nurse Practitioner Gerontology; Visit Provider Nurse Practitioner Gerontology
DX: R00.1 Bradycardia, unspecified (principal)
CPT/HCPCS: 93225; 93226

== ENCOUNTER → 2025-01-24 | Outpatient (CLI) | payer MEDICARE, SELFPAY ==
--- NOTE | 2025-01-24 10:45 | BI_ITS ---
EXAM: SCRN MAMM (CAD)W/BRADEN BILAT DATE: 01/24/2025 CLINICAL HISTORY: F, Age 69 y/o , SCRN MAMM (CAD)W/BRADEN BILAT No family history. History of prior left ultrasound-guided breast biopsy. TECHNIQUE: Procedure Code: [id number] Modality: MG Procedure: SCRN MAMM (CAD)W/BRADEN BILAT COMPARISON: Prior exam(s) dated January 24, 2024.. FINDINGS: TISSUE DENSITY: The breasts are heterogeneously dense, which may obscure small masses. Bilateral Breast Mammographic Findings: Focal architectural distortion is seen in the central aspect of the left breast on the craniocaudad view. This is not definitely seen on the MLO view. The patient will be recalled for additional compression views. A tissue clip marker is once again seen in the upper lateral aspect of the left breast from prior biopsy. A 4.4 mm nodule is seen adjacent to it. BI/SCRN MAMM (CAD)W/BRADEN BILAT IMPRESSION: Focal area of architectural distortion seen in the midportion of the left breas t on the craniocaudad view. The patient will be recalled for additional views including compression spot views and 90 degree la teral view. OVERALL FINAL ASSESSMENT BI-RADS 0: INCOMPLETE - NEED ADDITIONAL IMAGING EVALUATION. RECOMMENDATION: Additional Views obtained/call backs Additional Recommendation none A letter with findings and recommendations will be mailed to the patient. Reading Location: [id number]
== END | disposition home or self-care (01) ==
LOC: OPBI 10:34
PROVIDERS: PCP Internal Medicine; Referring Provider Internal Medicine; Visit Provider Internal Medicine
DX: Z12.31 Encounter for screening mammogram for malignant neoplasm of breast (principal)
CPT/HCPCS: 77063; 77067